=== PATIENT | male | born 1970 | race Two or more races ===

== ENCOUNTER 2022-02-27 10:46 | Emergency (ER) | payer OTHER, SELFPAY ==
--- NOTE | ~2022-02-27 | XR_ITS ---
EXAMINATION: XR CHEST CLINICAL INFORMATION: Left-sided chest pain. COMPARISON: None TECHNIQUE: Frontal view of the chest was obtained. FINDINGS: The lungs are clear. The cardiomediastinal silhouette is normal in size. There is no pleural effusion or pneumothorax. No acute osseous abnormality. XR/XR chest 1V IMPRESSION: No acute cardiopulmonary findings.
--- NOTE | ~2022-02-27 | CT_ITS ---
EXAMINATION: CT ABDOMEN AND PELVIS WITHOUT CONTRAST CLINICAL INFORMATION: Left-sided abdominal pain. COMPARISON: None TECHNIQUE: Multidetector volumetric imaging was performed from the superior aspect of the liver through the pubic symphysis. Sagittal and coronal reformatted images were obtained on the technologist's workstation. This CT examination was performed using dose optimization techniques as appropriate, variously including the following: *Automated exposure control *Adjustment of mA and/or kV according to patient size (this includes techniques or standardized protocols for targeted exams where dose is matched to indication/reason for exam; i.e. extremities or head) *Use of iterative reconstruction technique DLP: 804 mGy-cm FINDINGS: LUNG BASES: The visualized lung bases are unremarkable. LIVER, GALLBLADDER, AND BILIARY TREE: The liver is normal in size, shape, and attenuation. No focal hepatic lesion or biliary ductal dilatation is present. Gallbladder not seen. PANCREAS: Unremarkable. SPLEEN: Unremarkable. ADRENAL GLANDS: Unremarkable. KIDNEYS AND URETERS: The kidneys are normal in size, shape, and attenuation. No hydronephrosis, hydroureter, or calculi seen. Simple-appearing right upper pole renal cyst. There is a somewhat lobulated hypodensity within the lower pole of the left kidney measuring up to 4.3 x 4.2 x 4.4 cm. This measures approximately -7.7 Hounsfield units. Evaluation is limited without IV contrast and may represent renal angiomyolipoma. No perinephric stranding. BLADDER: Unremarkable. GASTROINTESTINAL TRACT: No bowel wall thickening or inflammatory change. No small or large bowel obstruction. Unremarkable appendix. PERITONEAL CAVITY: No intra-abdominal free air or free fluid. ABDOMINAL WALL: No significant hernia is appreciated. LYMPH NODES: No significant lymphadenopathy. VASCULAR: Unremarkable. PELVIC VISCERA: Prostate calcifications. OSSEOUS STRUCTURES: No acute osseous abnormality. CT/CT abdomen pelvis wo con IMPRESSION: 1. No renal or ureteral stone. 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 Evaluation limited without IV contrast. 2. Otherwise unremarkable examination. Fleischner guidelines were followed.
[2022-02-27 12:28] VITALS: BP 147/96; PULSE 71; RESP 18; TEMP 37.1; O2SAT 96; BMI 39.6
[2022-02-27 12:51] LABS: MANUAL DIFF FLAG NO
[2022-02-27 12:52] LABS: Basophils Absolute Auto 0.1 X10*3/uL (0.0-0.2); Basophils Percent Auto 0.7 % (0-2); Eosinophils Absolute Auto 0.3 X10*3/uL (0.0-0.4); Eosinophils Percent Auto 3.7 % (0-4); Hematocrit 43.2 % (42.0-52.0); Hemoglobin 13.8 g/dl (14.0-18.0); Imm Gran Abs Auto 0.08 X10*3/uL (0.00-0.03); Lymphocytes Absolute Auto 2.3 X10*3/uL (1.2-4.9); Lymphocytes Percent Auto 28.1 % (20-40); Mean Corpuscular HGB Conc 31.9 g/dl (31.0-36.0); Mean Corpuscular Volume 81.4 fL (80.0-98.0); Mean Platelet Volume 9.6 fL (9.4-12.4); Monocytes Absolute Auto 0.7 X10*3/uL (0.1-1.2); Monocytes Percent Auto 9.2 % (2-11); Neutrophils Absolute Auto 4.6 x10*3/uL (2.0-8.3); Neutrophils Percent Auto 57.3 % (45-73); Platelet Count 315 X10*3/uL (160-400); Red Blood Count 5.31 X10*6/uL (4.60-5.80); Red Cell Distribution Width 14.6 % (11.0-16.0)
[2022-02-27 12:57] LABS: Appearance Urine CLEAR; Color Urine YELLOW; Glucose Urine UA NEG (NEG); Nitrite Urine NEG (NEG); PH 5.5 (5.0-8.0); Specific Gravity - Urine >= 1.030 (1.005-1.025); Urine Blood NEG (NEG); Urine Ketones NEG (NEG); Urine Protein NEG (NEG-TRACE)
[2022-02-27 12:58] LABS: Leukocyte Esterase Urine NEG (NEG)
[2022-02-27 13:19] LABS: Alanine Aminotransferase 81 U/L (0-40); Albumin Level 4.3 g/dL (3.5-5.0); Alkaline Phosphatase 95 U/L (39-117); Anion Gap 11 (12-20); Aspartate Amino Transferase 41 U/L (5-37); Bilirubin Total 0.2 mg/dL (0.0-1.0); Blood Urea Nitrogen 16 mg/dL (9-16); Calcium 9.9 mg/dL (8.4-10.2); Carbon Dioxide 25 mmol/L (22-29); Chloride 106 mmol/L (96-108); Creatinine Clr Calc Pharmacy 113.8; Estimated Glomerular Filt Rate > 60; Glucose Random 105 mg/dL (60-115); Potassium 4.3 mmol/L (3.3-5.1); Sodium 138 mmol/L (135-145); Total Protein 7.5 g/dL (6.5-8.0)
--- NOTE | 2022-02-27 20:11 | ED.GENADULT ---
HPI - General Adult General Chief complaint: Abdominal Pain Stated complaint: Abd pain Time Seen by Provider: 02/27/22 20:10 Source: patient Mode of arrival: ambulatory Limitations: other (Patient poor historian) History of Present Illness HPI narrative: 51-year-old male with no known medical history presents to the emergency department with severe 10/10 stinging/stabbing pain to the left side of the abdomen radiating to his back/flank and shortness of breath X2 days. Patient tells me that it is hard to describe the pain but at times he feels like it is a burning sensation. He has no overlying skin changes. He tells me he has been feeling short of breath x2 days. Denies chest pain. Patient is a current daily smoker he smokes 1 pack every 2 weeks he tells me. Denies fevers, chills, difficulties with urination, or bowel habits, nausea, vomiting, diarrhea, hematochezia Denies history of kidney stones Onset (ago): day(s) (2) Location: left (flank ) Radiation: non-radiation Severity: moderate Quality: stabbing and constant Pain Consistency: constant Relieving factors: none Exacerbating factors: none Associated symptoms: shortness of breath Treatments prior to arrival: none Related Data Allergies Allergy/AdvReac Type Severity Reaction Status Date / Time No Known Allergies Allergy Verified 02/27/22 12:27 Review of Systems Review of Systems: Constitutional : No Weight loss, No Fever, No Chills, No Fatigue, No Malaise ENT/Mouth : No sore throat, No Rhinorrhea Eyes: No Eye Pain, No Swelling, No Redness Cardiovascular : No Chest Pain, + SOB, No Dyspnea on Exertion, No Orthopnea, No Edema, No Palpitations Respiratory : No Cough, No Sputum, No Wheezing Gastrointestinal : No Nausea, No Vomiting, No Diarrhea, No Constipation, No abdominal Pain, No Hematochezia, No Melena Genitourinary : No Dysuria, No Urinary Frequency, No Hematuria, Musculoskeletal : No joint pain, No Myalgias, No Joint Swelling, + flank pain Skin : No Skin Lesions, No rash Neuro : No Weakness, No Numbness, No Dizziness, No Headache Psych : No Anxiety/Panic, No Depression All other systems reviewed and are negative Yes all other systems are reviewed and are negative PMFSH Past Medical History Attestation statement: The following information was validated with the patient. Source: old records reviewed and nursing notes reviewed Social History Social History Advance Directives: No Advance Directives Information Provided: No Physical Exam ED Vital Signs: Vital Signs - 24 hr 02/27/22 12:28 02/27/22 20:56 02/27/22 23:38 Temperature 98.7 F 98.4 F 98.1 F Pulse Rate 71 70 59 Respiratory Rate 18 16 18 Blood Pressure 147/96 H 136/93 H 141/90 H Pulse Oximetry 96 98 96 BMI result Body Mass Index 39.6 Vital signs stable Appearance: Alert.? Oriented X3.? No acute distress.? Head: Normocephalic, atraumatic, no step-offs or deformities Eyes: Pupils equal, round and reactive to light.? ENT: Pharynx normal.? Neck: Normal inspection.? Neck supple.? CVS: Normal heart rate and rhythm.? Pulses normal.? Respiratory: No respiratory distress.? Breath sounds normal.? Abdomen: Soft and nontender.? Skin: Skin warm and dry.? Normal skin color.? Normal skin turgor.? Extremities: No lower extremity edema.? No calf ttp. 5/5 strength to bilateral upper and lower extremities Back: No midline tenderness, no C-spine tenderness, full range of motion, no CVA tenderness bilaterally Neuro: Oriented X 3.? No motor deficit.? No sensory deficit. CN 2-12 intact Course Reevaluation(s) Reevaluation #1: CBC within normal limits. Chemistry with no acute electrolyte abnormalities requiring intervention. Transaminases slightly elevated, however, no pain to palpation to right upper quadrant. Patient's lipase within normal limits unlikely pancreatitis. Urine clean for infection. Pending at this time is D-dimer chest x-ray and CT of the abdomen and pelvis. Time: 20:39 Reevaluation #2: D-dimer negative, unlikely that this is a PE. Chest x-ray with no acute findings unlikely that this is pneumonia. CT of the abdomen and pelvis with no renal or ureteral stones. There is a possible left lower pole angiomyeolipoma I have attached CT scan results to patient's discharge in advised him to follow-up with his PCP. Patient was treated with Toradol with success. Time: 22:29 Reevaluation #3: Patient tells me he is feeling so much better pain down to zero, passed PO challage eating and driinking no pain, nausea or vomiting., ambulating, appears to be in no acute distress telling me he feels much better and would like to go home. I educated patient that if he notes a rash he should see his primary care provider return for further evaluation as this could be shingles. Outlined worrisome signs and symptoms on discharge in advised him to return with any new or worsening symptoms. Comfortable discharge home. Time: 00:03 Medical Decision Making [facility] Narrative Medical decision making narrative: 2011 51-year-old male presents with left-sided abdominal pain/burning radiating to the left flank area. Denies history of kidney stones. Denies urinary symptoms. Physical exam benign. No overlying skin changes. History and physical examination is concerning for possible herpes zoster, will rule out intra-abdominal at etiologies, UTI. Unlikely PE however will obtain D-dimer. Will also rule out pneumonia with chest x-ray. Will rule out diverticulitis. Patient has no complaints of chest pain, very low suspicion for ACS. History and physical examination not consistent with dissection. To clarify patient points around T7-T8 dermatome when I ask him where his abdomen hurts. No overlying skin changes. Explained to patient if rash develops than likely this is herpes zoster Plan at this time is labs, imaging, chest x-ray, D-dimer Medical Records Medical records reviewed: Yes I reviewed the patient's medical records. Lab Data Lab results reviewed: Yes I reviewed the patient's lab results. Result diagrams: 02/27/22 12:45 02/27/22 12:45 Labs: Lab Results 02/27/22 02/27/22 02/27/22 Range/Units 12:45 12:45 12:45 WBC 8.0 (4.8-10.8) X10*3/uL RBC 5.31 (4.60-5.80) X10*6/uL Hgb 13.8 L (14.0-18.0) g/dl Hct 43.2 (42.0-52.0) % MCV 81.4 (80.0-98.0) fL MCH 26.0 L (27.0-33.0) pg MCHC 31.9 (31.0-36.0) g/dl RDW 14.6 (11.0-16.0) % Plt Count 315 (160-400) X10*3/uL MPV 9.6 (9.4-12.4) fL Immature Gran % (Auto) 1.0 H (0.0-0.4) % Neut % (Auto) 57.3 (45-73) % Lymph % (Auto) 28.1 (20-40) % Reeves % (Auto) 9.2 (2-11) % Eos % (Auto) 3.7 (0-4) % Baso % (Auto) 0.7 (0-2) % Lymph # (Auto) 2.3 (1.2-4.9) X10*3/uL Reeves # (Auto) 0.7 (0.1-1.2) X10*3/uL Eos # (Auto) 0.3 (0.0-0.4) X10*3/uL Baso # (Auto) 0.1 (0.0-0.2) X10*3/uL Abs Immat Gran (auto) 0.08 H (0.00-0.03) X10*3/uL Absolute Neuts (auto) 4.6 (2.0-8.3) x10*3/uL Absolute Nucleated RBC 0.000 (0.0-0.012) X10*3/uL Nucleated RBC % (auto) 0.0 (0.0-0.2) /100WBC D-Dimer High Sensitivty NG/ML Sodium 138 (135-145) mmol/L Potassium 4.3 (3.3-5.1) mmol/L Chloride 106 (96-108) mmol/L Carbon Dioxide 25 (22-29) mmol/L Anion Gap 11 L (12-20) BUN 16 (9-16) mg/dL Creatinine 0.82 (0.5-1.4) mg/dL Estim Creat Clear Calc 113.8 Estimated GFR > 60 Random Glucose 105 (60-115) mg/dL Calcium 9.9 (8.4-10.2) mg/dL Total Bilirubin 0.2 (0.0-1.0) mg/dL AST 41 H (5-37) U/L ALT 81 H (0-40) U/L Alkaline Phosphatase 95 (39-117) U/L Total Protein 7.5 (6.5-8.0) g/dL Albumin 4.3 (3.5-5.0) g/dL Lipase 28 (8-78) U/L Urine Color YELLOW Urine Appearance CLEAR Urine pH 5.5 (5.0-8.0) Ur Specific [place] >= 1.030 H (1.005-1.025) Urine Protein NEG (NEG-TRACE) MG/DL Urine Glucose (UA) NEG (NEG) MG/DL Urine Ketones NEG (NEG) MG/DL Urine Blood NEG (NEG) Urine Nitrite NEG (NEG) Ur Leukocyte Esterase NEG (NEG) 02/27/22 Range/Units 21:00 WBC (4.8-10.8) X10*3/uL RBC (4.60-5.80) X10*6/uL Hgb (14.0-18.0) g/dl Hct (42.0-52.0) % MCV (80.0-98.0) fL MCH (27.0-33.0) pg MCHC (31.0-36.0) g/dl RDW (11.0-16.0) % Plt Count (160-400) X10*3/uL MPV (9.4-12.4) fL Immature Gran % (Auto) (0.0-0.4) % Neut % (Auto) (45-73) % Lymph % (Auto) (20-40) % Reeves % (Auto) (2-11) % Eos % (Auto) (0-4) % Baso % (Auto) (0-2) % Lymph # (Auto) (1.2-4.9) X10*3/uL Reeves # (Auto) (0.1-1.2) X10*3/uL Eos # (Auto) (0.0-0.4) X10*3/uL Baso # (Auto) (0.0-0.2) X10*3/uL Abs Immat Gran (auto) (0.00-0.03) X10*3/uL Absolute Neuts (auto) (2.0-8.3) x10*3/uL Absolute Nucleated RBC (0.0-0.012) X10*3/uL Nucleated RBC % (auto) (0.0-0.2) /100WBC D-Dimer High Sensitivty 196 NG/ML Sodium (135-145) mmol/L Potassium (3.3-5.1) mmol/L Chloride (96-108) mmol/L Carbon Dioxide (22-29) mmol/L Anion Gap (12-20) BUN (9-16) mg/dL Creatinine (0.5-1.4) mg/dL Estim Creat Clear Calc Estimated GFR Random Glucose (60-115) mg/dL Calcium (8.4-10.2) mg/dL Total Bilirubin (0.0-1.0) mg/dL AST (5-37) U/L ALT (0-40) U/L Alkaline Phosphatase (39-117) U/L Total Protein (6.5-8.0) g/dL Albumin (3.5-5.0) g/dL Lipase (8-78) U/L Urine Color Urine Appearance Urine pH (5.0-8.0) Ur Specific [place] (1.005-1.025) Urine Protein (NEG-TRACE) MG/DL Urine Glucose (UA) (NEG) MG/DL Urine Ketones (NEG) MG/DL Urine Blood (NEG) Urine Nitrite (NEG) Ur Leukocyte Esterase (NEG) Critical Care Time Critical Care Time Critical Care Time: No Discharge Plan Discharge Clinical Impression: Abdominal pain Patient Disposition: Still a Patient Instructions: Abdominal Pain (ED) Additional Instructions: Take your medications as prescribed. If you were prescribed antibiotics today, it is important that you take your medication to their entirety, do not skip any doses, do not finish them early. Follow-up with your primary care provider this week. Follow-up with gastroenterology if symptoms persist for over a week or 2. Return to the emergency department with new or worsening symptoms. Such as fevers, chills, chest pain, shortness of breath, nausea, vomiting, dizziness, headache, vision changes, lethargy In case of emergency call 911 Look out for rash, of this rash arises it is likely that this is shingles and if this is the case you need to reach out to your medical doctor or come back to the emergency department for evaluation as this may require further intervention/treatment. [place] [facility] medicamentos seg?n lo prescrito. Si le recetaron antibi?ticos hoy, es importante que tome montanez medicamento en montanez totalidad, no se salte ninguna dosis, no los termine antes de tiempo. Seguimiento con montanez proveedor de atenci?n primaria esta semana. Seguimiento con gastroenterolog?a si los s?ntomas persisten treva m?s de michael semana o 2. Regrese al departamento de emergencias con s?ntomas nuevos o que empeoran. Jenni fiebre, escalofr?os, dolor de pecho, dificultad para respirar, n?useas, v?mitos, mareos, dolor de keith, cambios en la visi?n, letargo En jackie de emergencia llama al 911 Est? atento a la erupci?n, si surge esta erupci?n, es probable que se trate de culebrilla y, si fish es el jackie, debe comunicarse con montanez m?dico o regresar al departamento de emergencias para michael evaluaci?n, ya que esto puede requerir michael intervenci?n / tratamiento adicional. CT/CT abdomen pelvis wo con IMPRESSION: 1. No renal or ureteral stone. 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 Evaluation limited without IV contrast. 2. Otherwise unremarkable examination.? ? Fleischner guidelines were followed. Referrals: Francisco Dumont MD [Physician] - 1 week Physician,Tiffanie Rubio [Primary Care Provider] - 2 days Stand Alone Forms: Work/School Release
[2022-02-27 20:32] LABS: Lipase 28 U/L (8-78)
[2022-02-27 20:56] VITALS: BP 136/93; PULSE 70; RESP 16; TEMP 36.9; O2SAT 98
[2022-02-27 21:15] LABS: D Dimer High Sensitivity 196 NG/ML
[2022-02-27] MEDS: Ketorolac Tromethamine 15 MG/ML VIAL 30 MG IM (23:02)
[2022-02-27 23:38] VITALS: BP 141/90; PULSE 59; RESP 18; TEMP 36.7; O2SAT 96
== END 2022-02-28 00:26 | disposition home or self-care (01) ==
PROVIDERS: Physician Assistant; Emergency Provider Internal Medicine
DX: R10.32 Left lower quadrant pain (principal); M54.50 Low back pain, unspecified; R06.02 Shortness of breath; F17.210 Nicotine dependence, cigarettes, uncomplicated; Z71.6 Tobacco abuse counseling; Z79.899 Other long term (current) drug therapy
CPT/HCPCS: 36415; 71045; 74176; 80053; 81003; 83690; 85025; 85379; 96372; 99284; J1885

== ENCOUNTER 2022-07-10 10:39 | Outpatient (REF) | payer OTHER, SELFPAY ==
--- NOTE | ~2022-07-10 | XR_ITS ---
EXAMINATION: XR RIBS, LEFT CLINICAL INFORMATION: Left anterior chest and left upper quadrant pain after coughing COMPARISON: 02/27/2022. TECHNIQUE: 3 views of the left ribs were obtained. Single view of the chest performed as well. FINDINGS: Lungs are clear. No consolidation, pneumothorax, or pleural effusion. The cardiomediastinal silhouette and pulmonary vasculature are normal. Osseous structures are unremarkable. Ribs are intact. No fractures are identified. XR/XR ribs LT min 3V w CXR1V IMPRESSION: Unremarkable examination.
--- NOTE | ~2022-07-10 | XR_ITS ---
EXAMINATION: XR ABDOMEN COMPLETE CLINICAL INDICATION: Left upper quadrant pain after coughing COMPARISON: None TECHNIQUE: 2 views of the abdomen. FINDINGS: The bowel gas pattern is nonobstructive. No evidence for free air. No suspicious abnormal calcifications observed. Visualized ribs unremarkable. XR/XR acute abdomen series IMPRESSION: Nonobstructive bowel gas pattern without any evidence for free air.
[2022-07-10 11:08] LABS: Ammonia 30 umol/L (13-55)
[2022-07-10 11:34] LABS: Hematocrit 43.9 % (42.0-52.0); Hemoglobin 14.2 g/dl (14.0-18.0); Mean Corpuscular HGB Conc 32.3 g/dl (31.0-36.0); Mean Corpuscular Hemoglobin 25.1 pg (27.0-33.0); Mean Corpuscular Volume 77.7 fL (80.0-98.0); Mean Platelet Volume 9.8 fL (9.4-12.4); Platelet Count 368 X10*3/uL (160-400); Red Blood Count 5.65 X10*6/uL (4.60-5.80); Red Cell Distribution Width 14.2 % (11.0-16.0); White Blood Count 10.1 X10*3/uL (4.8-10.8)
[2022-07-10 12:21] LABS: Alanine Aminotransferase 33 U/L (0-40); Albumin Level 4.6 g/dL (3.5-5.0); Alkaline Phosphatase 77 U/L (39-117); Anion Gap 17 (12-20); Aspartate Amino Transferase 27 U/L (5-37); Bilirubin Direct < 0.2 mg/dL (0.0-0.5); Bilirubin Total 0.3 mg/dL (0.0-1.0); Blood Urea Nitrogen 17 mg/dL (9-16); Calcium 9.8 mg/dL (8.4-10.2); Carbon Dioxide 24 mmol/L (22-29); Chloride 104 mmol/L (96-108); Estimated Glomerular Filt Rate > 60; Glucose Random 102 mg/dL (60-115); Lipase < 4 U/L (8-78); Potassium 4.2 mmol/L (3.3-5.1); Sodium 141 mmol/L (135-145); Total Protein 7.7 g/dL (6.5-8.0)
[2022-07-10 12:25] LABS: Amylase 50 U/L (28-100)
== END 2022-07-10 10:40 | disposition home or self-care (01) ==
LOC: HO.LAB 10:39
PROVIDERS: PCP Hospitalist; Visit Provider Hospitalist
DX: Z00.00 Encounter for general adult medical examination without abnormal findings (principal); R10.9 Unspecified abdominal pain; R68.89 Other general symptoms and signs; J45.901 Unspecified asthma with (acute) exacerbation; R10.12 Left upper quadrant pain
CPT/HCPCS: 36415; 71101; 74022; 80053; 82140; 82150; 82248; 83690; 85027

== ENCOUNTER → 2022-07-17 08:36 | Outpatient (BNVA) | payer OTHER, SELFPAY | PROVIDERS: PCP Hospitalist; Referring Provider Hospitalist; Visit Provider Physician Assistant | DX: K21.9 Gastro-esophageal reflux disease without esophagitis (principal); R10.12 Left upper quadrant pain; Z78.9 Other specified health status | CPT/HCPCS: 99202 ==

== ENCOUNTER → 2022-08-14 08:38 | Outpatient (BNVA) | payer OTHER, SELFPAY | PROVIDERS: PCP Hospitalist; Visit Provider Internal Medicine Pulmonary Disease | DX: J44.9 Chronic obstructive pulmonary disease, unspecified (principal); R06.09 Other forms of dyspnea | CPT/HCPCS: 99202 ==

== ENCOUNTER → 2022-09-11 08:45 | Outpatient (BNVA) | payer OTHER, SELFPAY | PROVIDERS: PCP Hospitalist; Referring Provider Hospitalist; Visit Provider Physician Assistant | DX: K21.9 Gastro-esophageal reflux disease without esophagitis (principal); K59.09 Other constipation; J45.20 Mild intermittent asthma, uncomplicated; R06.09 Other forms of dyspnea | CPT/HCPCS: 99212 ==

== ENCOUNTER 2022-09-17 09:10 | Outpatient (REF) | payer OTHER, SELFPAY ==
--- NOTE | 2022-09-17 11:47 | PFT_ITS ---
INDICATION: COPD. SPIROMETRY: FEV1 to FVC 84% with an FEV1 of 2.29 L, which is 76% predicted and an FVC of 2.73 L, which is 70% predicted. No significant response to bronchodilators noted. Maximum voluntary ventilation 56% predicted. LUNG VOLUMES: Total lung capacity 79% predicted. The expiratory reserve volume 10% predicted. DIFFUSION CAPACITY: DLCO 97% predicted. COMPARISONS: None. INTERPRETATION: No obstructive ventilatory defects. No significant response to bronchodilators noted. There is a moderate decrease in the maximum voluntary ventilation secondary to likely deconditioning. Lung volumes do demonstrate a restrictive ventilatory defect consistent with mild restrictive lung disease, impart due to likely an elevated BMI. His expiratory reserve volume is also significantly decreased down to 10% predicted. Diffusion capacity is within normal limits. Clinical correlation warranted. MD JACE [place]/MODL / [id number]
== END 2022-09-17 09:11 | disposition home or self-care (01) ==
LOC: HO.RESP 09:10
PROVIDERS: PCP Hospitalist; Visit Provider Internal Medicine Pulmonary Disease
DX: J44.9 Chronic obstructive pulmonary disease, unspecified (principal); R06.09 Other forms of dyspnea
CPT/HCPCS: 94060; 94727; 94729

== ENCOUNTER → 2022-09-19 08:39 | Outpatient (BNVA) | payer OTHER, SELFPAY | PROVIDERS: PCP Hospitalist; Visit Provider Internal Medicine Pulmonary Disease | DX: J44.9 Chronic obstructive pulmonary disease, unspecified (principal) | CPT/HCPCS: 99212 ==

== ENCOUNTER 2022-10-10 09:04 | Emergency (ER) | payer OTHER, SELFPAY ==
--- NOTE | ~2022-10-10 | XR_ITS ---
EXAMINATION: XR CHEST CLINICAL INFORMATION: Cough. COMPARISON: None TECHNIQUE: Frontal view of the chest was obtained. FINDINGS: No significant abnormality is noted involving the heart, lungs, mediastinum, bony thorax or soft tissues. XR/XR chest 1V IMPRESSION: Unremarkable chest examination.
[2022-10-10 09:13] VITALS: BP 135/87; PULSE 95; RESP 20; TEMP 36.4; O2SAT 95; BMI 45.7
--- NOTE | 2022-10-10 09:27 | ED_ITS ---
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 No fevers, chills, leg swelling, leg pain, vomiting, diarrhea, abdominal pain. Patient reports chest discomfort with coughing only. Patient has been using albuterol MDI with continued symptoms. No recent travel. Patient reports he was around a [id number] who had cough and cold symptoms. Related Data Previous Rx's Medication Instructions Recorded pantoprazole 40 mg tablet,delayed 40 mg PO DAILY 30 days #30 tabs 07/17/22 release albuterol sulfate 90 mcg/actuation 2 puff inhalation Q4-6H PRN 08/01/22 aerosol inhaler (ProAir HFA) shortness of breath or wheezing #8.5 grams albuterol sulfate 1.25 mg/3 mL 1.25 mg (3 mL) inhalation Q4H 1 09/06/22 solution for nebulization month #540 mL docusate sodium 100 mg capsule 200 mg PO BEDTIME #60 caps 09/11/22 (Colace) methylcellulose (laxative) 500 mg 500 mg PO BID #60 tabs 09/11/22 tablet (Citrucel) pantoprazole 20 mg tablet,delayed 40 mg PO ONCE 30 days #60 tabs 09/11/22 release polyethylene glycol 3350 17 17 g PO DAILY #510 grams 09/11/22 gram/dose oral powder (Miralax) tiotropium 2.5 mcg-olodaterol 2.5 2 puff inhalation DAILY 30 days #4 09/19/22 mcg/actuation mist for inhalation grams (Stiolto Respimat) benzonatate 200 mg capsule 200 mg PO TID PRN cough #30 caps 10/10/22 prednisone 20 mg tablet 40 mg PO DAILY #8 tabs 10/10/22 Allergies Allergy/AdvReac Type Severity Reaction Status Date / Time No Known Allergies Allergy Verified 09/19/22 08:53 Review of Systems Review of Systems: Yes all other systems are reviewed and are negative Constitutional: Constitutional: Reports no additional constitutional complaints, Denies body ache(s), Denies chills, Denies fever(s), Denies headache(s) and Denies weakness Eyes: Eyes: Reports no additional eye complaints and Denies change in vision ENT: Reports system reviewed and no additional complaints, except as documented, Denies dizziness, Denies headache(s), Denies nasal congestion, Reports nasal discharge and Denies neck pain Cardiovascular: Cardiovascular: Reports no additional cardiovascular complaints, Reports chest pain, Denies leg edema and Reports dyspnea Respiratory: Respiratory: Reports no additional respiratory complaints, Denies cough, Reports dyspnea and Reports wheezing Gastrointestinal: Gastrointestinal: Reports no additional gastrointestinal complaints, Denies abdominal pain, Denies diarrhea, Denies nausea and Denies vomiting Genitourinary: Genitourinary: Denies urinary incontinence Musculoskeletal: Musculoskeletal: Reports no additional musculoskeletal complaints, Denies back pain, Denies arthralgias, Denies joint swelling, Denies neck pain, Denies numbness and Denies tingling Integumentary/Breasts: Skin/Breast: Reports system reviewed and no additional complaints, except as docu and Denies rash Neurologic: Reports system reviewed and no additional complaints, except as documented, Denies dizziness, Denies headache(s), Denies numbness, Denies tingling and Denies weakness Allergic/Immunologic: Allergic/Immunologic: Reports wheezing PMFSH Past Medical History Attestation statement: The following information was validated with the patient. Source: old records reviewed and nursing notes reviewed Medical History Asthma Surgical History History of surgery on arm Hx of cholecystectomy Social History Social History Household Members: Family Housing: House Alcohol intake: former Patient Tobacco Use Status: Former Tobacco user e-Cigarette/Vaping Use: Never Used Second Hand Smoke Exposure: No Advance Directives: No Advance Directives Information Provided: Yes service: No Current occupational status: employed Current occupation: works nights Current occupational exposures/hazards: No Physical Exam ED Vital Signs: Vital Signs - 24 hr 10/10/22 09:13 10/10/22 10:38 Temperature 97.6 F Pulse Rate 95 90 Respiratory Rate 20 18 Blood Pressure 135/87 Pulse Oximetry 95 Oxygen Delivery Method Room Air BMI result Body Mass Index 45.7 Const General: cooperative, healthy appearing, comfortable and no acute distress Orientation/consciousness: patient oriented x3 Limitations: language barrier HENMT Head: Yes normal to inspection Ears: hearing grossly normal bilaterally and TM's normal bilaterally General nose exam: Normal external nose present Face and sinus: Yes normal facial exam Mouth: Normal oral and palatal mucosa present Throat: Yes posterior oropharynx normal, Yes tonsils normal and Yes uvula midline Eyes General: appearance normal, both eyes and all related structures Pupils: Equal, round and reactive pupils present Neck Neck: Yes normal visual inspection, Yes full ROM, Yes no lymphadenopathy and Yes no meningeal signs Chest Chest palpation & inspection: normal inspection of the chest Resp Effort & Inspection: normal respiratory effort Auscultation: wheezes Cardio Rate: regular rate Rhythm: regular rhythm Peripheral pulses: Peripheral pulses 2+ throughout GI Inspection: Yes normal to inspection Palpation (GI): Soft to palpation and nontender General: Yes no CVA tenderness Back/Spine/Pelvis Back: no CVA tenderness Thoracic/Lumbar Spine: thoracic and lumbar spine normal to inspection Skin General skin exam: no rashes or lesions noted Neuro General: patient oriented x3, moves all extremities and no meningeal signs Cranial nerves: Yes Equal, round and reactive pupils present Cognition (Neuro): normal cognition Gait exam (Neuro): Normal gait present Extrem General: Yes normal to inspection, Yes no pedal edema and Yes no calf tenderness Course Course Course Narrative: RSV is positive. COVID and flu are negative. Chest x-ray shows no acute finding. No hypoxia or tachypnea. Lungs are improved after receiving DuoNeb. Patient discharged home with course of prednisone. Reviewed worrisome signs and symptoms of when to return to the emergency room. Comfortable plan for discharge home. Medications Administered Discontinued Medications Generic Name Dose Route Start Last Admin Trade Name Freq PRN Reason Stop Dose Admin Albuterol Sulfate 2.5 mg/ 0 mg 10/10/22 09:40 10/10/22 10:36 Ipratropium [place] 0.5 mg INHALE 10/10/22 09:41 2.5 each ONCE ONE Administration Prednisone 60 mg 10/10/22 09:40 10/10/22 10:01 Prednisone 20 Mg Tablet PO 10/10/22 09:41 60 mg ONCE ONE Administration Medical Decision Making Medical Decision Making [facility] Narrative: 52 yo male with history of COPD here with URI symptoms x 2-3 days with chest discomfort with coughing. Wheezing on exam. Will give Duoneb, testing for flu/covid/rsv, obtain CXR, give po pred Differential Diagnosis Differential Diagnoses: The differential diagnosis associated with the presentation includes Influenza, pneumonia, COPD exacerbation Lab Data [facility] Lab Attestation statement: I reviewed the patient's lab results. Labs: Lab Results 10/10/22 Range/Units 09:48 Influenza Type A (PCR) NEGATIVE (Negative) Influenza Type B (PCR) NEGATIVE (Negative) RSV RNA Qual (PCR) POSITIVE A (Negative) SARS-CoV-2 RNA (RT-PCR) NEGATIVE (Negative) Independent Interpretation I performed an independent interpretation of an: Plain X-Ray (Independently reviewed the chest x-ray which shows no acute finding) Radiology Impression Discussion of test interpretation with radiology: I have reviewed the radiologist's reading. Radiologist Impression: [address] [address] XRay Report Signed Patient: Socrates Mejia MR#: [id number] : 1970 Acct:[id number] Age/Sex: 52 / M ADM Date: 10/10/22 Loc: HO.ED Attending Dr: Ordering Physician: Tom Echeverria MD Date of Service: 10/10/22 Procedure(s): XR chest 1V Accession Number(s): [id number] cc: Tom Echeverria MD~ EXAMINATION: XR CHEST CLINICAL INFORMATION: Cough. COMPARISON: None TECHNIQUE: Frontal view of the chest was obtained. FINDINGS: No significant abnormality is noted involving the heart, lungs, mediastinum, bony thorax or soft tissues. XR/XR chest 1V IMPRESSION: Unremarkable chest examination. ? Prescription Management I considered prescription management with: Antibiotic Considered antibiotic but I do not believe it is necessary with less than 2 days of symptoms with no fever, normal x-ray and a positive viral test for RSV This is likely viral syndrome Discharge Plan Discharge Clinical Impression: Respiratory syncytial virus (RSV) Patient Disposition: Home, Self-Care Instructions: Respiratory Syncytial Virus (ED) Additional Instructions: Las pruebas de COVID y gripe son negativas. La radiograf?a no muestra signos de neumon?a. Comience montanez prednisona ma?angel. Use montanez inhalador seg?n sea necesario. Regresar por empeoramiento de los s?ntomas Prescriptions: New prednisone 20 mg tablet 40 mg PO DAILY Qty: 8 0RF benzonatate 200 mg capsule 200 mg PO TID PRN (Reason: cough) Qty: 30 0RF No Action albuterol sulfate 1.25 mg/3 mL solution for nebulization 1.25 mg inhalation Q4H 30 Days Qty: 540 5RF albuterol sulfate [ProAir HFA] 90 mcg/actuation HFA aerosol inhaler 2 puff inhalation Q4-6H PRN (Reason: shortness of breath or wheezing) Qty: 8.5 5RF pantoprazole 40 mg tablet,delayed release (DR/EC) 40 mg PO DAILY 30 Days Qty: 30 11RF docusate sodium [Colace] 100 mg capsule 200 mg PO BEDTIME Qty: 60 5RF polyethylene glycol 3350 [Miralax] 17 gram/dose powder 17 g PO DAILY Qty: 510 6RF Citrucel 500 mg tablet 500 mg PO BID Qty: 60 5RF pantoprazole 20 mg tablet,delayed release (DR/EC) 40 mg PO ONCE 30 Days Qty: 60 6RF Stiolto Respimat 2.5-2.5 mcg/actuation mist 2 puff inhalation DAILY 30 Days Qty: 4 6RF Referrals: María Hubbard NP [Primary Care Provider] - 5 days Interventions: ED Discharge Assessment Last Done: 10/10/22 11:22 Discharge Date/Time: 10/10/22 11:23 Print Language: Kinyarwanda
[2022-10-10] MEDS: predniSONE 20 MG TABLET 60 MG PO (10:01)
[2022-10-10 10:38] VITALS: PULSE 90; RESP 18; O2SAT 98
[2022-10-10 10:40] LABS: Influenza A PCR NEGATIVE (Negative); Influenza B PCR NEGATIVE (Negative); Resp Syncy Virus RNA Qual PCR POSITIVE (Negative); SARS COV2 PCR INHOUSE NEGATIVE (Negative)
== END 2022-10-10 11:23 | disposition home or self-care (01) ==
PROVIDERS: Emergency Provider Emergency Medicine Emergency Medical Services; PCP Hospitalist
DX: R06.2 Wheezing (principal); B97.4 Respiratory syncytial virus as the cause of diseases classified elsewhere; J44.9 Chronic obstructive pulmonary disease, unspecified; Z20.822 Contact with and (suspected) exposure to COVID-19
CPT/HCPCS: 0241U; 71045; 94640; 99283; 99284

== ENCOUNTER 2022-10-14 08:06 | Emergency (ER) | payer OTHER, SELFPAY ==
--- NOTE | 2022-10-14 | ECG_ITS ---
Test Reason : DYSPNEA Blood Pressure : / mmHG Vent. Rate : 109 BPM Atrial Rate : 109 BPM P-R Int : 174 ms QRS Dur : 070 ms QT Int : 338 ms P-R-T Axes : 035 027 029 degrees QTc Int : 455 ms Sinus tachycardia Otherwise normal ECG No previous ECGs available Referred By: Tom Echeverria Electronically Signed By:Emile Rivas
--- NOTE | ~2022-10-14 | CT_ITS ---
EXAMINATION: CTA CHEST. CT ABDOMEN PELVIS WITH IV CONTRAST. CLINICAL INFORMATION: Right upper abdominal pain. Constipation. COMPARISON: Chest x-ray 10/10/2022. CT chest, abdomen and pelvis without contrast 02/27/2022 TECHNIQUE: 5 mm thin axial and reformatted 3 mm thin sagittal and coronal images of chest were obtained following rapid IV 85 mL Omnipaque 350. Subsequently 5 mm thin axial and reformatted 3 mm thin sagittal and coronal images of abdomen pelvis were obtained without contrast. DLP 1375. This CT examination was performed using dose optimization technique as appropriate, variously including the following: Automated exposure control Adjustment of MA and/or KV according to patient size(this includes techniques or standardized protocols for targeted exams where dose is matched to indication/reason for exam; extremities or head. Use of iterative reconstruction techniques. FINDINGS: CHEST: Mediastinum: There is good opacification of thoracic aorta without any evidence of aneurysm or dissection. The heart size is normal. The pulmonary arteries is less than optimally opacified with no gross narrowing or filling defects in the main, right or left pulmonary arteries. No abnormal size mediastinal mass or lymph nodes seen. Thyroid lobes are not in the [id number]-ovqs. Central trachea and the bronchi appears widely patent. Pleura: There is a small right pleural effusion. No pleural thickening, calcification or pneumothorax seen. LUNGS: The lungs are expanded with minimal groundglass attenuation in the right upper lobe medially likely atelectasis or respiratory breathing artifact. Mild atelectatic changes seen in the superior segment right lower lobe and lingula. No mass or consolidation seen. Axilla:Small shotty lymph nodes seen in the axilla. The chest wall appears unremarkable. Osseous structures: No aggressive lytic or sclerotic process seen. There is an old healed fracture left lateral ninth rib. Lower dorsal spine. No aggressive lytic or sclerotic process seen. ABDOMEN AND PELVIS: Liver, ducts and gallbladder: The liver is normal size, contour and and mild hypoattenuation. No intrahepatic ductal dilatation or focal lesion. The gallbladder is not visualized. Spleen: Unremarkable. Pancreas: Unremarkable. Adrenal glands: Unremarkable. Kidneys and ureters: There are bilateral renal cysts. Both kidneys are otherwise normal size, shape without hydronephrosis. Lymphovascular structures: Abdominal aorta is normal caliber. No abnormal size retroperitoneal or peritoneal lymph nodes seen. GI tract: There is scattered stool in the right colon without distention. Rest the colon and the small bowel loops are normal. The stomach is nondistended. Appendix is normal caliber. Pelvis: The bladder is nondistended. The prostate gland is normal size with central gland calcification. No free fluid. No abnormal pelvic lymph nodes no evidence of abdominal wall hernia. Osseous structures: No aggressive lytic or sclerotic process seen. There is a large soft tissue mass/density seen eighth, ninth, sterile chondral junction, question hematoma. No bony erosive changes or fracture seen involving the ribs or the costochondral junction. CT/CT angio chest PE protocol IMPRESSION: Small right pleural effusion with with compressive right lower lobe atelectasis. There is minimal groundglass atelectatic changes in right upper lobe and lingula. Old left ninth rib fracture. Moderate soft tissue swelling right anterolateral eighth and ninth costochondral junction likely hematoma with injury. There is no underlying rib or costochondral fracture or lytic/sclerotic lesion. Correlate for any kind of trauma. Bilateral renal cysts. Mild attenuation of liver question fatty infiltration.
--- NOTE | ~2022-10-14 | CT_ITS ---
EXAMINATION: CT CERVICAL SPINE WITHOUT CONTRAST; UNENHANCED CT OF THE HEAD. CLINICAL INFORMATION: Head bleed. Hypertensive. Possible neck fracture. COMPARISON: None TECHNIQUE: Routine unenhanced CT of the head with multiple coronal and sagittal reformatted images; routine unenhanced CT of the cervical spine with multiple coronal and sagittal reformatted images. This CT examination was performed using dose optimization techniques as appropriate, variously including the following: *Automated exposure control *Adjustment of mA and/or kV according to patient size (this includes techniques or standardized protocols for targeted exams where dose is matched to indication/reason for exam; i.e. extremities or head) *Use of iterative reconstruction technique DLP: 1371 mGy-cm FINDINGS: CT head: No intracranial hemorrhage, tumors or acute infarcts noted. The ventricles and sulci are normal in size and configuration. No focal parenchymal lesions of the brain or abnormal extra-axial fluid collections noted. The orbits and globes are normal in appearance. Opacification of a moderate number scattered ethmoid air cells. No mastoid or middle ear cavity effusions. CT cervical spine: No fractures or acute appearing subluxations are noted. Moderate intervertebral disc space narrowing and endplate osteophytosis C5-C6. Mild multilevel facet hypertrophic changes. No prevertebral fluid collections or soft tissue inflammatory changes identified. CT/CT head/brain wo IV con IMPRESSION: CT head: *No acute intracranial abnormalities. CT cervical spine: *No acute abnormalities. *Chronic spondylosis as detailed above.
--- NOTE | ~2022-10-14 | CT_ITS ---
EXAMINATION: CT CERVICAL SPINE WITHOUT CONTRAST; UNENHANCED CT OF THE HEAD. CLINICAL INFORMATION: Head bleed. Hypertensive. Possible neck fracture. COMPARISON: None TECHNIQUE: Routine unenhanced CT of the head with multiple coronal and sagittal reformatted images; routine unenhanced CT of the cervical spine with multiple coronal and sagittal reformatted images. This CT examination was performed using dose optimization techniques as appropriate, variously including the following: *Automated exposure control *Adjustment of mA and/or kV according to patient size (this includes techniques or standardized protocols for targeted exams where dose is matched to indication/reason for exam; i.e. extremities or head) *Use of iterative reconstruction technique DLP: 1371 mGy-cm FINDINGS: CT head: No intracranial hemorrhage, tumors or acute infarcts noted. The ventricles and sulci are normal in size and configuration. No focal parenchymal lesions of the brain or abnormal extra-axial fluid collections noted. The orbits and globes are normal in appearance. Opacification of a moderate number scattered ethmoid air cells. No mastoid or middle ear cavity effusions. CT cervical spine: No fractures or acute appearing subluxations are noted. Moderate intervertebral disc space narrowing and endplate osteophytosis C5-C6. Mild multilevel facet hypertrophic changes. No prevertebral fluid collections or soft tissue inflammatory changes identified. CT/CT cervical spine wo IV con IMPRESSION: CT head: *No acute intracranial abnormalities. CT cervical spine: *No acute abnormalities. *Chronic spondylosis as detailed above.
[2022-10-14 08:10] VITALS: BP 192/132; PULSE 115; RESP 24; TEMP 36.6; O2SAT 94; BMI 38.5
[2022-10-14 08:16] VITALS: BP 192/126
[2022-10-14 08:59] VITALS: BP 206/141; PULSE 108; RESP 25; O2SAT 96
[2022-10-14 09:53] LABS: MANUAL DIFF FLAG NO
[2022-10-14 09:57] LABS: Basophils Absolute Auto 0.1 X10*3/uL (0.0-0.2); Basophils Percent Auto 0.5 % (0-2); Eosinophils Absolute Auto 0.2 X10*3/uL (0.0-0.4); Eosinophils Percent Auto 1.7 % (0-4); Hematocrit 39.9 % (42.0-52.0); Imm Gran Abs Auto 0.19 X10*3/uL (0.00-0.03); Imm Gran Pct Auto 1.6 % (0.0-0.4); Lymphocytes Absolute Auto 2.4 X10*3/uL (1.2-4.9); Lymphocytes Percent Auto 20.5 % (20-40); Mean Corpuscular HGB Conc 32.6 g/dl (31.0-36.0); Mean Corpuscular Hemoglobin 25.2 pg (27.0-33.0); Mean Corpuscular Volume 77.3 fL (80.0-98.0); Mean Platelet Volume 9.3 fL (9.4-12.4); Monocytes Absolute Auto 0.7 X10*3/uL (0.1-1.2); Monocytes Percent Auto 5.9 % (2-11); Neutrophils Absolute Auto 8.2 x10*3/uL (2.0-8.3); Neutrophils Percent Auto 69.8 % (45-73); Platelet Count 335 X10*3/uL (160-400); Red Blood Count 5.16 X10*6/uL (4.60-5.80); Red Cell Distribution Width 15.6 % (11.0-16.0); White Blood Count 11.8 X10*3/uL (4.8-10.8)
[2022-10-14] MEDS: Morphine Sulfate 4 MG/ML CARTRIDGE IVPUSH (09:59)
[2022-10-14] MEDS: Famotidine/PF 20 MG/2 ML VIAL IVPUSH (09:59)
[2022-10-14 10:25] LABS: Alanine Aminotransferase 107 U/L (0-40); Albumin Level 4.2 g/dL (3.5-5.0); Alkaline Phosphatase 83 U/L (39-117); Anion Gap 17 (12-20); Aspartate Amino Transferase 76 U/L (5-37); Bilirubin Total 0.4 mg/dL (0.0-1.0); Blood Urea Nitrogen 18 mg/dL (9-16); Calcium 9.1 mg/dL (8.4-10.2); Carbon Dioxide 20 mmol/L (22-29); Chloride 105 mmol/L (96-108); Creatinine Clr Calc Pharmacy 110.7; Estimated Glomerular Filt Rate > 60; Glucose Random 145 mg/dL (60-115); Lipase 5 U/L (8-78); Sodium 138 mmol/L (135-145); Total Protein 7.4 g/dL (6.5-8.0)
[2022-10-14 10:38] LABS: INTERNATIONAL NORM RATIO 0.9 (0.9-1.1)
--- NOTE | 2022-10-14 10:40 | ED.GENADULT ---
HPI - General Adult General Chief complaint: Dyspnea Stated complaint: SOB, pain on upper R side Time Seen by Provider: 10/14/22 09:09 Source: patient Mode of arrival: ambulatory Limitations: no limitations History of Present Illness HPI narrative: 52-year-old male with past medical history of asthma and recent RSV diagnosis presents to ED for right-sided flank, upper abdominal pain, with pleurisy. patient also states constipation for the past two days with no bowel movements. patient denies coughing up blood. patient denies any leg swelling, calf pain, recent long travel, recent surgery. Related Data Previous Rx's Medication Instructions Recorded pantoprazole 40 mg tablet,delayed 40 mg PO DAILY 30 days #30 tabs 07/17/22 release albuterol sulfate 90 mcg/actuation 2 puff inhalation Q4-6H PRN 08/01/22 aerosol inhaler (ProAir HFA) shortness of breath or wheezing #8.5 grams albuterol sulfate 1.25 mg/3 mL 1.25 mg (3 mL) inhalation Q4H 1 09/06/22 solution for nebulization month #540 mL docusate sodium 100 mg capsule 200 mg PO BEDTIME #60 caps 09/11/22 (Colace) methylcellulose (laxative) 500 mg 500 mg PO BID #60 tabs 09/11/22 tablet (Citrucel) pantoprazole 20 mg tablet,delayed 40 mg PO ONCE 30 days #60 tabs 09/11/22 release polyethylene glycol 3350 17 17 g PO DAILY #510 grams 09/11/22 gram/dose oral powder (Miralax) tiotropium 2.5 mcg-olodaterol 2.5 2 puff inhalation DAILY 30 days #4 09/19/22 mcg/actuation mist for inhalation grams (Stiolto Respimat) benzonatate 200 mg capsule 200 mg PO TID PRN cough #30 caps 10/10/22 prednisone 20 mg tablet 40 mg PO DAILY #8 tabs 10/10/22 albuterol sulfate 90 mcg/actuation 2 puff inhalation Q4-6H PRN 10/14/22 aerosol inhaler (ProAir HFA) shortness of breath or wheezing #8.5 grams oxycodone 5 mg capsule 5 mg PO TID PRN pain 3 days #9 caps 10/14/22 prednisone 20 mg tablet 40 mg PO DAILY 5 days #10 tabs 10/14/22 Allergies Allergy/AdvReac Type Severity Reaction Status Date / Time No Known Allergies Allergy Verified 09/19/22 08:53 Review of Systems Review of Systems: Right-sided flank upper abdominal pain with pleurisy. constipation Yes all other systems are reviewed and are negative [facility] Past Medical History Medical History Asthma Surgical History History of surgery on arm Hx of cholecystectomy Social History Social History Household Members: Family Housing: House Alcohol intake: former Patient Tobacco Use Status: Former Tobacco user e-Cigarette/Vaping Use: Never Used Second Hand Smoke Exposure: No Advance Directives: No Advance Directives Information Provided: Yes service: No Current occupational status: employed Current occupation: works nights Current occupational exposures/hazards: No Physical Exam ED Vital Signs: Vital Signs - 24 hr 10/14/22 14:00 10/14/22 14:26 Temperature 98.1 F Pulse Rate 91 99 Respiratory Rate 17 18 Blood Pressure 131/82 Pulse Oximetry 94 Oxygen Delivery Method Room Air BMI result Body Mass Index 38.5 Const General: cooperative, healthy appearing and acute distress Orientation/consciousness: oriented to person, oriented to place, oriented to time and patient oriented x3 HENMT Head: Yes normal to inspection, Yes No palpable skull fracture present, Yes normocephalic, Yes atraumatic and No abrasion Eyes General: appearance normal, both eyes and all related structures Neck Neck: Yes normal visual inspection, Yes full ROM, Yes no lymphadenopathy, Yes no meningeal signs, Yes trachea midline, Yes supple, No anterior neck swelling and No tender Chest Chest palpation & inspection: normal inspection of the chest Chest/axillae images: 1. Tenderness on palpation. Negative for crepitus, rash, erythema, or ecchymosis Resp Effort & Inspection: normal respiratory effort and able to speak in complete sentences Auscultation: wheezes expiratory wheezes Cardio Jugular venous distension: no JVD Heart sounds: S1 normal heart sound present and S2 normal heart sound present GI Inspection: Yes normal to inspection and No abdominal wall ecchymosis Palpation (GI): Soft to palpation, not firm, Tenderness to palpation present (GI) in the RUQ, no guarding and not rigid General: Yes CVA tenderness (RIght) Back/Spine/Pelvis Back: CVA tenderness (RIght) and No back tenderness Skin General skin exam: no rashes or lesions noted and elasticity normal Neuro Other: negative any neuro deficits General: oriented to person, oriented to place, oriented to time, patient oriented x3, gait normal, tone normal, moves all extremities, Normal light touch and pain sensation, no meningeal signs, no focal motor deficits, CN's II-XI intact bilaterally and normal sensation to monofilament Extrem Other: lower extremities negative for any swelling, pitting edema, or calf tenderness. General: Yes normal to inspection and Yes full ROM Psych Appearance: grossly normal, well kempt and not disheveled Course Course Course Narrative: Patient tachycardic on the monitor heart rate 105 hypertensive with pleurisy with right-sided upper flank pain due to this patient was sent for chest CT to rule out PE. CT scan abdomen ordered to make sure there is no abdominal etiology. Cardiac enzymes ordered. Morphine given for pain meds Reevaluation(s) Reevaluation #1: patient's chest CTA shows right costochondral hematoma. Was sent for head CT scan cervical spine CT to make sure there is no brain bleed or neck fracture although patient does not recall any trauma. Time: 12:55 Reevaluation #2: Vital signs stable. Head CT cervical spine CT normal. Most likely patient has right-sided costochondral hematoma from coughing hard which caused a tear in lower chest upper abdominal wall. Patient chest CT negative for PE. O2 saturation on room air 98% on monitor. Time: 18:22 Medications Administered Discontinued Medications Generic Name Dose Route Start Last Admin Trade Name Freq PRN Reason Stop Dose Admin Albuterol Sulfate 2.5 mg/ 0 mg 10/14/22 13:59 10/14/22 14:23 Ipratropium [place] 0.5 mg INHALE 10/14/22 14:00 1 each ONCE ONE Administration Famotidine 20 mg 10/14/22 09:29 10/14/22 09:59 Famotidine/Pf 20 Mg/2 Ml Vial IVPUSH 10/14/22 09:30 20 mg ONCE ONE Administration Guaifenesin/Codeine Phosphate 10 ml 10/14/22 13:59 10/14/22 14:42 Guaifen/Codeine Sf 200/20/10ml 10 Ml Liquid PO 10/14/22 14:00 10 ml ONCE ONE Administration Iohexol 100 ml 10/14/22 11:12 10/14/22 11:13 Iohexol 350 Mg/Ml 100 Ml Infus..Btl IV 10/14/22 11:13 85 ml ONCE ONE Administration Methylprednisolone Sodium Succinate 125 mg 10/14/22 13:59 10/14/22 14:42 Methylprednisolone Sod Succ 125 Mg/2 Ml Vial IVPUSH 10/14/22 14:00 125 mg ONCE ONE Administration Morphine Sulfate 4 mg 10/14/22 09:39 10/14/22 09:59 Morphine Sulfate 4 Mg/Ml Cartridge IVPUSH 10/14/22 09:40 4 mg ONCE ONE Administration Protocol Medical Decision Making Medical Decision Making [facility] Narrative: 52-year-old male presents to the ED with shortness of breath right flank right upper abdominal pain with tachycardia and hypertension. patient recently diagnosed with RSV last week and has history of asthma. Differential Diagnosis Differential Diagnoses: The differential diagnosis associated with the presentation includes ( PE, heart attack, pneumonia, constipation, Asthma exacerbation due to RSV) Admission/Observation vital signs improved no need for admission. Pending 2nd troponin Lab Data 10/14/22 09:51 10/14/22 09:51 Labs: Lab Results 10/14/22 10/14/22 10/14/22 Range/Units 09:51 09:51 09:51 WBC 11.8 H (4.8-10.8) X10*3/uL RBC 5.16 (4.60-5.80) X10*6/uL Hgb 13.0 L (14.0-18.0) g/dl Hct 39.9 L (42.0-52.0) % MCV 77.3 L (80.0-98.0) fL MCH 25.2 L (27.0-33.0) pg MCHC 32.6 (31.0-36.0) g/dl RDW 15.6 (11.0-16.0) % Plt Count 335 (160-400) X10*3/uL MPV 9.3 L (9.4-12.4) fL Immature Gran % (Auto) 1.6 H (0.0-0.4) % Neut % (Auto) 69.8 (45-73) % Lymph % (Auto) 20.5 (20-40) % [place] % (Auto) 5.9 (2-11) % Eos % (Auto) 1.7 (0-4) % Baso % (Auto) 0.5 (0-2) % Lymph # (Auto) 2.4 (1.2-4.9) X10*3/uL [place] # (Auto) 0.7 (0.1-1.2) X10*3/uL Eos # (Auto) 0.2 (0.0-0.4) X10*3/uL Baso # (Auto) 0.1 (0.0-0.2) X10*3/uL Abs Immat Gran (auto) 0.19 H (0.00-0.03) X10*3/uL Absolute Neuts (auto) 8.2 (2.0-8.3) x10*3/uL Absolute Nucleated RBC 0.000 (0.0-0.012) X10*3/uL Nucleated RBC % (auto) 0.0 (0.0-0.2) /100WBC PT 10.0 (10.0-13.1) SEC INR 0.9 (0.9-1.1) APTT 20.0 L (26.0-36.4) SEC Sodium 138 (135-145) mmol/L Potassium 4.0 (3.3-5.1) mmol/L Chloride 105 (96-108) mmol/L Carbon Dioxide 20 L (22-29) mmol/L Anion Gap 17 (12-20) BUN 18 H (9-16) mg/dL Creatinine 0.97 (0.5-1.4) mg/dL Estim Creat Clear Calc 110.7 Estimated GFR > 60 Random Glucose 145 H D (60-115) mg/dL Calcium 9.1 D (8.4-10.2) mg/dL Total Bilirubin 0.4 (0.0-1.0) mg/dL AST 76 H (5-37) U/L ALT 107 H (0-40) U/L Alkaline Phosphatase 83 (39-117) U/L Troponin I High Sens (<3.5-35.0) ng/L B-Natriuretic Peptide (<100) pg/mL Total Protein 7.4 (6.5-8.0) g/dL Albumin 4.2 (3.5-5.0) g/dL Lipase 5 L (8-78) U/L Urine Color Urine Appearance Urine pH (5.0-9.0) Ur Specific [place] (1.005-1.025) Urine Protein (Neg-Trace) mg/dL Urine Glucose (UA) (Negative) mg/dL Urine Ketones (Negative) mg/dL Urine Blood (Negative) Urine Nitrite (Negative) Ur Leukocyte Esterase (Negative) Urine RBC (0-2) /HPF Urine WBC (0-5) /HPF Ur Squamous Epith Cells (0-2) /HPF Urine Bacteria (None Seen) Hyaline Casts (0-2) /LPF 10/14/22 10/14/22 10/14/22 Range/Units 09:51 09:52 12:38 WBC (4.8-10.8) X10*3/uL RBC (4.60-5.80) X10*6/uL Hgb (14.0-18.0) g/dl Hct (42.0-52.0) % MCV (80.0-98.0) fL MCH (27.0-33.0) pg MCHC (31.0-36.0) g/dl RDW (11.0-16.0) % Plt Count (160-400) X10*3/uL MPV (9.4-12.4) fL Immature Gran % (Auto) (0.0-0.4) % Neut % (Auto) (45-73) % Lymph % (Auto) (20-40) % [place] % (Auto) (2-11) % Eos % (Auto) (0-4) % Baso % (Auto) (0-2) % Lymph # (Auto) (1.2-4.9) X10*3/uL [place] # (Auto) (0.1-1.2) X10*3/uL Eos # (Auto) (0.0-0.4) X10*3/uL Baso # (Auto) (0.0-0.2) X10*3/uL Abs Immat Gran (auto) (0.00-0.03) X10*3/uL Absolute Neuts (auto) (2.0-8.3) x10*3/uL Absolute Nucleated RBC (0.0-0.012) X10*3/uL Nucleated RBC % (auto) (0.0-0.2) /100WBC PT (10.0-13.1) SEC INR (0.9-1.1) APTT (26.0-36.4) SEC Sodium (135-145) mmol/L Potassium (3.3-5.1) mmol/L Chloride (96-108) mmol/L Carbon Dioxide (22-29) mmol/L Anion Gap (12-20) BUN (9-16) mg/dL Creatinine (0.5-1.4) mg/dL Estim Creat Clear Calc Estimated GFR Random Glucose (60-115) mg/dL Calcium (8.4-10.2) mg/dL Total Bilirubin (0.0-1.0) mg/dL AST (5-37) U/L ALT (0-40) U/L Alkaline Phosphatase (39-117) U/L Troponin I High Sens 6.0 (<3.5-35.0) ng/L B-Natriuretic Peptide 38 (<100) pg/mL Total Protein (6.5-8.0) g/dL Albumin (3.5-5.0) g/dL Lipase (8-78) U/L Urine Color Yellow Urine Appearance Clear Urine pH 5.5 (5.0-9.0) Ur Specific [place] >= 1.030 H (1.005-1.025) Urine Protein 30 (1+) H (Neg-Trace) mg/dL Urine Glucose (UA) Negative (Negative) mg/dL Urine Ketones Negative (Negative) mg/dL Urine Blood Negative (Negative) Urine Nitrite Negative (Negative) Ur Leukocyte Esterase Negative (Negative) Urine RBC 0-2 (0-2) /HPF Urine WBC 0-5 (0-5) /HPF Ur Squamous Epith Cells 0-2 (0-2) /HPF Urine Bacteria None Seen (None Seen) Hyaline Casts 0-2 (0-2) /LPF 10/14/22 Range/Units 17:52 WBC (4.8-10.8) X10*3/uL RBC (4.60-5.80) X10*6/uL Hgb (14.0-18.0) g/dl Hct (42.0-52.0) % MCV (80.0-98.0) fL MCH (27.0-33.0) pg MCHC (31.0-36.0) g/dl RDW (11.0-16.0) % Plt Count (160-400) X10*3/uL MPV (9.4-12.4) fL Immature Gran % (Auto) (0.0-0.4) % Neut % (Auto) (45-73) % Lymph % (Auto) (20-40) % [place] % (Auto) (2-11) % Eos % (Auto) (0-4) % Baso % (Auto) (0-2) % Lymph # (Auto) (1.2-4.9) X10*3/uL [place] # (Auto) (0.1-1.2) X10*3/uL Eos # (Auto) (0.0-0.4) X10*3/uL Baso # (Auto) (0.0-0.2) X10*3/uL Abs Immat Gran (auto) (0.00-0.03) X10*3/uL Absolute Neuts (auto) (2.0-8.3) x10*3/uL Absolute Nucleated RBC (0.0-0.012) X10*3/uL Nucleated RBC % (auto) (0.0-0.2) /100WBC PT (10.0-13.1) SEC INR (0.9-1.1) APTT (26.0-36.4) SEC Sodium (135-145) mmol/L Potassium (3.3-5.1) mmol/L Chloride (96-108) mmol/L Carbon Dioxide (22-29) mmol/L Anion Gap (12-20) BUN (9-16) mg/dL Creatinine (0.5-1.4) mg/dL Estim Creat Clear Calc Estimated GFR Random Glucose (60-115) mg/dL Calcium (8.4-10.2) mg/dL Total Bilirubin (0.0-1.0) mg/dL AST (5-37) U/L ALT (0-40) U/L Alkaline Phosphatase (39-117) U/L Troponin I High Sens 4.6 (<3.5-35.0) ng/L B-Natriuretic Peptide (<100) pg/mL Total Protein (6.5-8.0) g/dL Albumin (3.5-5.0) g/dL Lipase (8-78) U/L Urine Color Urine Appearance Urine pH (5.0-9.0) Ur Specific [place] (1.005-1.025) Urine Protein (Neg-Trace) mg/dL Urine Glucose (UA) (Negative) mg/dL Urine Ketones (Negative) mg/dL Urine Blood (Negative) Urine Nitrite (Negative) Ur Leukocyte Esterase (Negative) Urine RBC (0-2) /HPF Urine WBC (0-5) /HPF Ur Squamous Epith Cells (0-2) /HPF Urine Bacteria (None Seen) Hyaline Casts (0-2) /LPF Independent Interpretation I performed an independent interpretation of an: EKG Interpretation: sinus tachycardia. Ventricular rate 109. CO interval 174. QRS 70. QTC 455. Negative STEMI. Radiology Impression Discussion of test interpretation with radiology: I have reviewed the radiologist's reading. Prescription Management I considered prescription management with: Pain Medication (oxycodone. albuterol, prednisone) Discharge Plan Discharge Clinical Impression: Asthma with exacerbation, Hematoma Patient Disposition: Home, Self-Care Instructions: Asthma (ED), Hematoma (ED) Additional Instructions: tiene un hematoma en el lado derecho de la pared abdominal superior del t?rax que le est? causando dolor. Se le ankit? de matthew con medicamentos para el dolor y se le recomendar? hielo y luego compresiones tibias en el ?zbigniew para aliviar el dolor y reducir montanez dariel?o. Ser? dado de matthew con esteroides e inhalador de albuterol por exacerbaci?n de asma por RSV. Regrese al servicio de urgencias si tiene sangrado rectal, empeoramiento del dolor tor?cico/abdominal derecho, fiebre, escalofr?os, aumento del dariel?o del abdomen o el t?rax, hinchaz?n de las piernas, dolor en la pantorrilla, tos con marcella o cualquier otro s?ntoma preocupante. Por favor, gerald un seguimiento con PCP. Prescriptions: New prednisone 20 mg tablet 40 mg PO DAILY 5 Days Qty: 10 0RF albuterol sulfate [ProAir HFA] 90 mcg/actuation HFA aerosol inhaler 2 puff inhalation Q4-6H PRN (Reason: shortness of breath or wheezing) Qty: 8.5 0RF oxycodone 5 mg capsule 5 mg PO TID PRN (Reason: pain) 3 Days Qty: 9 0RF Rx Instructions: Partial Fill upon patient request. No Action prednisone 20 mg tablet 40 mg PO DAILY Qty: 8 0RF benzonatate 200 mg capsule 200 mg PO TID PRN (Reason: cough) Qty: 30 0RF albuterol sulfate 1.25 mg/3 mL solution for nebulization 1.25 mg inhalation Q4H 30 Days Qty: 540 5RF albuterol sulfate [ProAir HFA] 90 mcg/actuation HFA aerosol inhaler 2 puff inhalation Q4-6H PRN (Reason: shortness of breath or wheezing) Qty: 8.5 5RF pantoprazole 40 mg tablet,delayed release (DR/EC) 40 mg PO DAILY 30 Days Qty: 30 11RF docusate sodium [Colace] 100 mg capsule 200 mg PO BEDTIME Qty: 60 5RF polyethylene glycol 3350 [Miralax] 17 gram/dose powder 17 g PO DAILY Qty: 510 6RF Citrucel 500 mg tablet 500 mg PO BID Qty: 60 5RF pantoprazole 20 mg tablet,delayed release (DR/EC) 40 mg PO ONCE 30 Days Qty: 60 6RF Stiolto Respimat 2.5-2.5 mcg/actuation mist 2 puff inhalation DAILY 30 Days Qty: 4 6RF Referrals: [facility] [place] [facility] [Provider Group] ( Right sided Costonchondral hematoma) María Hubbard NP [Primary Care Provider] - (Right costochondrol hematoma) Interventions: ED Discharge Assessment Last Done: 10/14/22 18:50 Discharge Date/Time: 10/14/22 18:51 Print Language: Prydeinig
[2022-10-14] MEDS: iohexoL 350 MG/ML 100 ML INFUS..BTL IV (11:13)
[2022-10-14 11:39] LABS: B Type Natriuretic Peptide 38 pg/mL (<100)
[2022-10-14 12:44] LABS: Appearance Urine Clear; Color Urine Yellow; Glucose Urine UA Negative (Negative); Leukocyte Esterase Urine Negative (Negative); Nitrite Urine Negative (Negative); PH 5.5 (5.0-9.0); Specific Gravity - Urine >= 1.030 (1.005-1.025); UMIC TRIGGER UACC YES; Urine Blood Negative (Negative); Urine Ketones Negative (Negative); Urine Protein 30 (1+) mg/dL (Neg-Trace)
[2022-10-14 12:49] LABS: Bacteria Urine None Seen (None Seen); Hyaline Casts Urine 0-2 /LPF (0-2); RBC Urine 0-2 /HPF (0-2); Squamous Epithelial Cell Urine 0-2 /HPF (0-2); WBC Urine 0-5 /HPF (0-5)
[2022-10-14 14:00] VITALS: BP 131/82; PULSE 91; RESP 17; TEMP 36.7; O2SAT 94
[2022-10-14 14:26] VITALS: PULSE 99; RESP 18; O2SAT 95
[2022-10-14] MEDS: methylPREDNISolone Sod Succ 125 MG/2 ML VIAL IVPUSH (14:42)
[2022-10-14] MEDS: guaiFEN/Codeine SF 200/20/10ML 10 ML LIQUID PO (14:42)
[2022-10-14 18:19] LABS: Troponin-I High Sensitivity 4.6 ng/L (<3.5-35.0)
== END 2022-10-14 18:51 | disposition home or self-care (01) ==
PROVIDERS: Physician Assistant; Emergency Provider Emergency Medicine Emergency Medical Services; PCP Hospitalist
DX: J45.901 Unspecified asthma with (acute) exacerbation (principal); M54.2 Cervicalgia; R06.02 Shortness of breath; R10.11 Right upper quadrant pain; R00.0 Tachycardia, unspecified; R51.9 Headache, unspecified; Z79.899 Other long term (current) drug therapy
CPT/HCPCS: 36415; 70450; 71275; 72125; 74177; 80053; 81001; 83690; 83880; 84484; 85025; 85610; 85730; 93005; 96374; 96375; 99285; J2270; J2930; Q9967

== ENCOUNTER 2022-10-19 08:37 | Emergency (ER) | payer OTHER, SELFPAY ==
--- NOTE | ~2022-10-19 | CT_ITS ---
EXAMINATION: CT CHEST WITH CONTRAST CLINICAL INFORMATION: Recent hematoma, increased pain and bruising. COMPARISON: Chest CTA dated 10/14/2022. TECHNIQUE: Multidetector volumetric CT imaging of the chest was obtained after the administration of 50 mL of Omnipaque 350 intravenous contrast without immediate adverse reactions. Axial MIP volume rendering provided. Sagittal and coronal reformatted images were obtained. This CT examination was performed using dose optimization techniques as appropriate, variously including the following: *Automated exposure control *Adjustment of mA and/or kV according to patient size (this includes techniques or standardized protocols for targeted exams where dose is matched to indication/reason for exam; i.e. extremities or head) *Use of iterative reconstruction technique DLP: 342 mGy-cm FINDINGS: LUNGS/PLEURA/AIRWAYS: A small right pleural effusion with mild adjacent compressive atelectasis. No significant/suspicious pulmonary nodules. No focal consolidation or pneumothorax. The airways are patent. MEDIASTINUM: The visualized thyroid gland is unremarkable. The thoracic aorta is unremarkable. No significant coronary artery calcifications. No pericardial effusion. UPPER ABDOMEN: Diffuse decreased hepatic attenuation without focal abnormality. Partial visualization of fluid attenuation right upper pole renal cyst measuring 3.9 cm in AP dimension (image 56, series 3). No mediastinal or hilar lymphadenopathy. MUSCULOSKELETAL: Mild multilevel degenerative changes. No acute/suspicious abnormality. SOFT TISSUES: Mild presternal subcutaneous infiltrative changes inferiorly without focal abnormality. CT/CT chest w IV con IMPRESSION: 1. Small right pleural effusion without significant interval change. No other significant acute abnormality. Short-term radiographic follow-up is recommended as clinically indicated. 2. Hepatic steatosis. 3 Right renal cyst and shows benign features not requiring follow-up. 4. Mild inferior presternal subcutaneous infiltrative changes without focal fluid collection or underlying abnormality. This appears increased from the previous study. Correlate with physical exam. Fleischner guidelines were followed.
--- NOTE | ~2022-10-19 | XR_ITS ---
EXAMINATION: XR CHEST CLINICAL INFORMATION: Shortness of breath. COMPARISON: 10/10/2022 chest radiograph. TECHNIQUE: 2 views of the chest were obtained. FINDINGS: Mild linear markings in the lingula. The lungs otherwise clear. There are no pleural effusions. The heart and mediastinal structures are unremarkable. XR/XR chest 2V IMPRESSION: Mild linear atelectasis versus scarring in the lingula. No acute cardiopulmonary process.
[2022-10-19 08:41] VITALS: BP 188/109; PULSE 84; RESP 20; TEMP 36.1; O2SAT 94; BMI 47.2
--- NOTE | 2022-10-19 09:05 | ED.GENADULT ---
HPI - General Adult General Chief complaint: General Medical Stated complaint: R Side Pain Time Seen by Provider: 10/19/22 09:03 Source: patient and slide developer Mode of arrival: ambulatory Limitations: no limitations History of Present Illness HPI narrative: 52 yo male with history of COPD/asthma, GERD, recent dx of RSV on 10/10 who presents to the ER for evaluation of ongoing right sided rib pain. He was seen here on 10/14 - had CTA chest showing small right sided pleural effusion w/ compressive RLL atelectasis, minimal groundglass opacities in RUL and lingula. He also had moderate soft tissue swelling right anteriolateral 8th/9th costochondral junction likely hematoma without associated rib fracture. He was discharged with prednisone, albuterol pump and 9 tablets of oxycodone. He presents back today with ongoing right-sided chest wall pain, coughing and shortness of breath. He denies any fever or chills at home. He states he took all of his oxycodone and and is still having pain. He reports they did improve the pain to a 3 or 4/10. Pain is worse with movement and coughing. He is not bringing up any phlegm. He denies any chest pain. MD complaint: Right-sided chest wall pain Onset (ago): day(s) Location: chest Radiation: non-radiation Severity: severe Severity scale (1-10): 8 Quality: sharp Pain Consistency: intermittent Relieving factors: immobilization and rest Exacerbating factors: movement and other (Coughing) Associated symptoms: cough and shortness of breath Treatments prior to arrival: none Related Data Previous Rx's Medication Instructions Recorded pantoprazole 40 mg tablet,delayed 40 mg PO DAILY 30 days #30 tabs 07/17/22 release albuterol sulfate 90 mcg/actuation 2 puff inhalation Q4-6H PRN 08/01/22 aerosol inhaler (ProAir HFA) shortness of breath or wheezing #8.5 grams albuterol sulfate 1.25 mg/3 mL 1.25 mg (3 mL) inhalation Q4H 1 09/06/22 solution for nebulization month #540 mL docusate sodium 100 mg capsule 200 mg PO BEDTIME #60 caps 09/11/22 (Colace) methylcellulose (laxative) 500 mg 500 mg PO BID #60 tabs 09/11/22 tablet (Citrucel) pantoprazole 20 mg tablet,delayed 40 mg PO ONCE 30 days #60 tabs 09/11/22 release polyethylene glycol 3350 17 17 g PO DAILY #510 grams 09/11/22 gram/dose oral powder (Miralax) tiotropium 2.5 mcg-olodaterol 2.5 2 puff inhalation DAILY 30 days #4 09/19/22 mcg/actuation mist for inhalation grams (Stiolto Respimat) benzonatate 200 mg capsule 200 mg PO TID PRN cough #30 caps 10/10/22 prednisone 20 mg tablet 40 mg PO DAILY #8 tabs 10/10/22 albuterol sulfate 90 mcg/actuation 2 puff inhalation Q4-6H PRN 10/14/22 aerosol inhaler (ProAir HFA) shortness of breath or wheezing #8.5 grams oxycodone 5 mg capsule 5 mg PO TID PRN pain 3 days #9 caps 10/14/22 prednisone 20 mg tablet 40 mg PO DAILY 5 days #10 tabs 10/14/22 azithromycin 250 mg tablet See Rx Instructions PO .COMPLEX #6 10/19/22 (Zithromax Z-Allen) tabs benzonatate 100 mg capsule 100 mg PO TID PRN cough #30 caps 10/19/22 oxycodone 5 mg tablet 5 mg PO Q6H PRN pain #10 tabs 10/19/22 Allergies Allergy/AdvReac Type Severity Reaction Status Date / Time No Known Allergies Allergy Verified 09/19/22 08:53 Review of Systems Review of Systems: Yes all other systems are reviewed and are negative PMFSH Past Medical History Medical History Asthma Surgical History History of surgery on arm Hx of cholecystectomy Social History Social History Household Members: Family Housing: House Alcohol intake: former Patient Tobacco Use Status: Former Tobacco user e-Cigarette/Vaping Use: Never Used Second Hand Smoke Exposure: No Advance Directives: No Advance Directives Information Provided: No service: No Current occupational status: employed Current occupation: works nights Current occupational exposures/hazards: No Physical Exam ED Vital Signs: Vital Signs - 24 hr 10/19/22 08:41 10/19/22 11:51 Temperature 96.9 F Pulse Rate 84 61 Respiratory Rate 20 16 Blood Pressure 188/109 H 155/94 H Pulse Oximetry 94 96 Oxygen Delivery Method Room Air Room Air BMI result Body Mass Index 47.2 Appearance: Alert. Oriented X3. No acute distress. Eyes: Pupils equal, round and reactive to light. ENT: Pharynx normal. Neck: Normal inspection. Neck supple. CVS: Normal heart rate and rhythm. Pulses normal. Anterior chest wall with a moderate size bluish and yellow ecchymotic area around the xiphoid and inferior sternum. Nontender. No crepitus. Respiratory: No respiratory distress. Breath sounds normal. Right anterior lateral chest wall tenderness with old, yellowing ecchymosis over the lower rib. Abdomen: Obese, rotund. Well-healed surgical scar in the right upper quadrant a bowel 7 in long. Soft and nontender. +BS x4 Skin: Skin warm and dry. Normal skin color. Normal skin turgor. No rashes. Extremities: No lower extremity edema. No calf tenderness. Neuro: Oriented X 3. No motor deficit. No sensory deficit. Course Course Course Narrative: 52-year-old male with history of asthma, COPD, recent diagnosis of RSV and subsequently developed a chest wall hematoma, most likely due to coughing who presents back to the ER with ongoing right-sided chest pain, coughing, shortness of breath. He ran out of oxycodone and is having ongoing pain. Vital signs are stable on arrival. On examination he does have new ecchymosis in the anterior chest wall just inferior to the sternum. Nontender. Denies any trauma or falls. He is not on anticoagulation. Unclear etiology of the ecchymosis. Will repeat lab workup today and CT scan of the chest with contrast to assess for extravasation or worsening hematoma. Reevaluation(s) Reevaluation #1: Lab workup does show some slight worsening of his H&H down to 12.1/37.5 from 13/39.9. His platelets and coags are normal. CT scan is pending. He remains hemodynamically stable. Pain is improved to a 3/10 with a dose of oxycodone and Tylenol Reevaluation #2: CT scan with small right pleural effusion, not changed from prior. No mention of worsening hematoma or fluid collection. There is a mild inferior parasternal subcu infiltrative changes without fluid collection or underlying abnormality, this is consistent with the bruising seeing on examination. He remains hemodynamically stable, saturating well. Pain is improved. At this point he is stable for discharge home with outpatient follow-up. Case was discussed with Dr. Buitrago. lead mechanical engineer used to discuss results and plan. All questions were answered. Patient stable. Medications Administered Discontinued Medications Generic Name Dose Route Start Last Admin Trade Name [place] PRN Reason Stop Dose Admin Acetaminophen 975 mg 10/19/22 09:33 10/19/22 10:06 Acetaminophen 325 Mg Tablet PO 10/19/22 09:34 975 mg ONCE ONE Administration Iohexol 100 ml 10/19/22 11:00 10/19/22 11:00 Iohexol 350 Mg/Ml 100 Ml Infus..Btl IV 10/19/22 11:01 65 ml ONCE ONE Administration Oxycodone HCl 5 mg 10/19/22 09:33 10/19/22 10:06 Oxycodone Hcl Immed Release 5 Mg Tablet PO 10/19/22 09:34 5 mg ONCE ONE Administration Medical Decision Making Medical Decision Making MDM Narrative: 52-year-old male with history of asthma, COPD, recent RSV diagnosis and right chest wall hematoma presents to the ER for evaluation of right sided chest wall pain, shortness of breath and coughing. Exam with new bruising. Differential Diagnosis Differential Diagnoses: The differential diagnosis associated with the presentation includes Worsening chest wall hematoma, hemothorax, trauma, pneumonia, less likely ACS or PE. Lab Data MDM Lab Attestation statement: I reviewed the patient's lab results. Were independently reviewed lab workup, mild leukocytosis 13.7 which is slightly increased from prior. Mild anemia, slightly decreased from prior. Normal platelets and coags. No metabolic derangements. 10/19/22 09:59 10/19/22 09:59 Labs: Lab Results 10/19/22 10/19/22 10/19/22 Range/Units 09:59 09:59 09:59 WBC 13.7 H (4.8-10.8) X10*3/uL RBC 4.76 (4.60-5.80) X10*6/uL Hgb 12.1 L (14.0-18.0) g/dl Hct 37.5 L (42.0-52.0) % MCV 78.8 L (80.0-98.0) fL MCH 25.4 L (27.0-33.0) pg MCHC 32.3 (31.0-36.0) g/dl RDW 16.9 H (11.0-16.0) % Plt Count 387 (160-400) X10*3/uL MPV 9.0 L (9.4-12.4) fL Immature Gran % (Auto) Cancelled Neut % (Auto) Cancelled Lymph % (Auto) Cancelled [place] % (Auto) Cancelled Eos % (Auto) Cancelled Baso % (Auto) Cancelled Lymph # (Auto) Cancelled [place] # (Auto) Cancelled Eos # (Auto) Cancelled Baso # (Auto) Cancelled Abs Immat Gran (auto) Cancelled Absolute Neuts (auto) Cancelled Absolute Nucleated RBC 0.070 H (0.0-0.012) X10*3/uL Nucleated RBC % (auto) 0.5 H (0.0-0.2) /100WBC Neutrophils % (Manual) 67 (45-73) % Band Neutrophils % 5 (3-5) % Lymphocytes % (Manual) 18 L (20-40) % Atypical Lymphs % (Man) 1 (0-6) % Monocytes % (Manual) 4 (2-11) % Eosinophils % (Manual) 2 (0-4) % Basophils % (Manual) 1 (0-2) % Metamyelocytes % 1 % Myelocytes % 1 % Abs Neuts (Manual) 9.9 H (2.0-8.3) X10*3/uL Lymphocytes # (Manual) 2.5 (1.2-4.9) X10*3/uL Atyp Lymphs # (Manual) 0.1 x10*3/uL Monocytes # (Manual) 0.5 (0.1-1.2) X10*3/uL Eosinophils # (Manual) 0.3 (0.0-0.4) X10*3/uL Basophils # (Manual) 0.1 (0.0-0.2) X10*3/uL Metamyelocytes # 0.1 X10*3/uL Myelocytes # 0.1 X10*/uL Platelet Estimate NORMAL (NORMAL) Large Platelets PRESENT Plt Morphology Comment NOTED RBC Morphology NOTED Polychromasia 1+ (0-2) /OIF Hypochromasia 1+ (5-14) /OIF Macrocytosis 1+ (5-14) /OIF PT 10.1 (10.0-13.1) SEC INR 0.9 (0.9-1.1) APTT 27.2 D (26.0-36.4) SEC Sodium 141 (135-145) mmol/L Potassium 3.4 (3.3-5.1) mmol/L Chloride 106 (96-108) mmol/L Carbon Dioxide 27 (22-29) mmol/L Anion Gap 11 L (12-20) BUN 15 (9-16) mg/dL Creatinine 0.82 (0.5-1.4) mg/dL Estim Creat Clear Calc 119.9 Estimated GFR > 60 Random Glucose 138 H (60-115) mg/dL Calcium 9.1 (8.4-10.2) mg/dL Magnesium 1.9 (1.6-2.6) mg/dL Total Bilirubin 0.5 (0.0-1.0) mg/dL Direct Bilirubin 0.2 (0.0-0.5) mg/dL AST 27 (5-37) U/L ALT 123 H (0-40) U/L Alkaline Phosphatase 110 (39-117) U/L Total Protein 6.9 (6.5-8.0) g/dL Albumin 4.1 (3.5-5.0) g/dL Urine Color Urine Appearance Urine pH (5.0-9.0) Ur Specific [place] (1.005-1.025) Urine Protein (Neg-Trace) mg/dL Urine Glucose (UA) (Negative) mg/dL Urine Ketones (Negative) mg/dL Urine Blood (Negative) Urine Nitrite (Negative) Ur Leukocyte Esterase (Negative) Urine RBC (0-2) /HPF Urine WBC (0-5) /HPF Ur Squamous Epith Cells (0-2) /HPF Urine Bacteria (None Seen) Hyaline Casts (0-2) /LPF 10/19/22 Range/Units 09:59 WBC (4.8-10.8) X10*3/uL RBC (4.60-5.80) X10*6/uL Hgb (14.0-18.0) g/dl Hct (42.0-52.0) % MCV (80.0-98.0) fL MCH (27.0-33.0) pg MCHC (31.0-36.0) g/dl RDW (11.0-16.0) % Plt Count (160-400) X10*3/uL MPV (9.4-12.4) fL Immature Gran % (Auto) Neut % (Auto) Lymph % (Auto) [place] % (Auto) Eos % (Auto) Baso % (Auto) Lymph # (Auto) [place] # (Auto) Eos # (Auto) Baso # (Auto) Abs Immat Gran (auto) Absolute Neuts (auto) Absolute Nucleated RBC (0.0-0.012) X10*3/uL Nucleated RBC % (auto) (0.0-0.2) /100WBC Neutrophils % (Manual) (45-73) % Band Neutrophils % (3-5) % Lymphocytes % (Manual) (20-40) % Atypical Lymphs % (Man) (0-6) % Monocytes % (Manual) (2-11) % Eosinophils % (Manual) (0-4) % Basophils % (Manual) (0-2) % Metamyelocytes % % Myelocytes % % Abs Neuts (Manual) (2.0-8.3) X10*3/uL Lymphocytes # (Manual) (1.2-4.9) X10*3/uL Atyp Lymphs # (Manual) x10*3/uL Monocytes # (Manual) (0.1-1.2) X10*3/uL Eosinophils # (Manual) (0.0-0.4) X10*3/uL Basophils # (Manual) (0.0-0.2) X10*3/uL Metamyelocytes # X10*3/uL Myelocytes # X10*/uL Platelet Estimate (NORMAL) Large Platelets Plt Morphology Comment RBC Morphology Polychromasia /OIF Hypochromasia /OIF Macrocytosis /OIF PT (10.0-13.1) SEC INR (0.9-1.1) APTT (26.0-36.4) SEC Sodium (135-145) mmol/L Potassium (3.3-5.1) mmol/L Chloride (96-108) mmol/L Carbon Dioxide (22-29) mmol/L Anion Gap (12-20) BUN (9-16) mg/dL Creatinine (0.5-1.4) mg/dL Estim Creat Clear Calc Estimated GFR Random Glucose (60-115) mg/dL Calcium (8.4-10.2) mg/dL Magnesium (1.6-2.6) mg/dL Total Bilirubin (0.0-1.0) mg/dL Direct Bilirubin (0.0-0.5) mg/dL AST (5-37) U/L ALT (0-40) U/L Alkaline Phosphatase (39-117) U/L Total Protein (6.5-8.0) g/dL Albumin (3.5-5.0) g/dL Urine Color Yellow Urine Appearance Clear Urine pH 5.5 (5.0-9.0) Ur Specific [place] >= 1.030 H (1.005-1.025) Urine Protein Trace (Neg-Trace) mg/dL Urine Glucose (UA) Negative (Negative) mg/dL Urine Ketones Negative (Negative) mg/dL Urine Blood Negative (Negative) Urine Nitrite Negative (Negative) Ur Leukocyte Esterase Negative (Negative) Urine RBC 0-2 (0-2) /HPF Urine WBC 0-5 (0-5) /HPF Ur Squamous Epith Cells 0-2 (0-2) /HPF Urine Bacteria None Seen (None Seen) Hyaline Casts 0-2 (0-2) /LPF Independent Interpretation I performed an independent interpretation of an: Plain X-Ray and CT Scan Interpretation: X-ray reviewed. Small right-sided pleural effusion noted. CT scan reviewed, small right pleural effusion with no major change from the 8th. No visualized rib fractures. No extravasation of contrast. Radiology Impression Discussion of test interpretation with radiology: I have reviewed the radiologist's reading. Radiologist Impression: IMPRESSION: ? 1. Small right pleural effusion without significant interval change. No other significant acute abnormality. Short-term radiographic follow-up is recommended as clinically indicated. 2. Hepatic steatosis. 3 Right renal cyst and shows benign features not requiring follow-up. 4. Mild inferior presternal subcutaneous infiltrative changes without focal fluid collection or underlying abnormality. This appears increased from the previous study. Correlate with physical exam. External Record Review External record reviewed: Office record, Prior outpatient labs and Prior outpatient radiology Prescription Management I considered prescription management with: Pain Medication and Antibiotic Critical Care Time Critical Care Time Critical Care Time: No Discharge Plan Discharge Clinical Impression: Chest wall pain Patient Disposition: Home, Self-Care Instructions: Chest Wall Pain (ED) Additional Instructions: Your CT scan today showed a stable right-sided fluid collection outside of your right lung, recommend repeat imaging by her doctor to ensure resolution in 4-6 weeks. Take the prescribed medications as directed. Also recommend around the clock Tylenol and Motrin for pain. Follow-up with your doctor If you develop new or worsening symptoms call 911 or come back to the ER for further evaluation. King tomograf?a computarizada de hoy mostr? michael acumulaci?n de l?quido estable en el lado derecho fuera de king pulm?n derecho, recomiende que king m?dico repita la yue de im?genes para garantizar la resoluci?n en 4 a 6 semanas. [place] los medicamentos recetados seg?n las indicaciones. Tambi?n recomiendo Tylenol y Motrin las 24 horas del d?a para el dolor. Seguimiento con king m?dico Si desarrolla s?ntomas nuevos o que empeoran, llame al 911 o regrese a la [place] de emergencias para michael evaluaci?n adicional. Prescriptions: New oxycodone 5 mg tablet 5 mg PO Q6H PRN (Reason: pain) Qty: 10 0RF Rx Instructions: Partial Fill upon patient request. azithromycin [Zithromax Z-Allen] 250 mg tablet See Rx Instructions .ROUTE .COMPLEX Qty: 6 0RF Rx Instructions: take 500 mg today (day 1), then 250 mg for 4 days (days 2-5) benzonatate 100 mg capsule 100 mg PO TID PRN (Reason: cough) Qty: 30 0RF No Action prednisone 20 mg tablet 40 mg PO DAILY Qty: 8 0RF benzonatate 200 mg capsule 200 mg PO TID PRN (Reason: cough) Qty: 30 0RF prednisone 20 mg tablet 40 mg PO DAILY 5 Days Qty: 10 0RF albuterol sulfate [ProAir HFA] 90 mcg/actuation HFA aerosol inhaler 2 puff inhalation Q4-6H PRN (Reason: shortness of breath or wheezing) Qty: 8.5 0RF oxycodone 5 mg capsule 5 mg PO TID PRN (Reason: pain) 3 Days Qty: 9 0RF Rx Instructions: Partial Fill upon patient request. albuterol sulfate 1.25 mg/3 mL solution for nebulization 1.25 mg inhalation Q4H 30 Days Qty: 540 5RF albuterol sulfate [ProAir HFA] 90 mcg/actuation HFA aerosol inhaler 2 puff inhalation Q4-6H PRN (Reason: shortness of breath or wheezing) Qty: 8.5 5RF pantoprazole 40 mg tablet,delayed release (DR/EC) 40 mg PO DAILY 30 Days Qty: 30 11RF docusate sodium [Colace] 100 mg capsule 200 mg PO BEDTIME Qty: 60 5RF polyethylene glycol 3350 [Miralax] 17 gram/dose powder 17 g PO DAILY Qty: 510 6RF Citrucel 500 mg tablet 500 mg PO BID Qty: 60 5RF pantoprazole 20 mg tablet,delayed release (DR/EC) 40 mg PO ONCE 30 Days Qty: 60 6RF Stiolto Respimat 2.5-2.5 mcg/actuation mist 2 puff inhalation DAILY 30 Days Qty: 4 6RF Referrals: María Hubbard NP [Primary Care Provider] - Interventions: ED Discharge Assessment Last Done: 10/19/22 13:06 Print Language: Maltese
[2022-10-19 10:06] LABS: Hematocrit 37.5 % (42.0-52.0); Hemoglobin 12.1 g/dl (14.0-18.0); Mean Corpuscular HGB Conc 32.3 g/dl (31.0-36.0); Mean Corpuscular Hemoglobin 25.4 pg (27.0-33.0); Mean Corpuscular Volume 78.8 fL (80.0-98.0); NRBC Pct Auto 0.5 /100WBC (0.0-0.2); Platelet Count 387 X10*3/uL (160-400); Red Blood Count 4.76 X10*6/uL (4.60-5.80); Red Cell Distribution Width 16.9 % (11.0-16.0); White Blood Count 13.7 X10*3/uL (4.8-10.8)
[2022-10-19] MEDS: Acetaminophen 325 MG TABLET 975 MG PO (10:06)
[2022-10-19] MEDS: oxyCODONE HCl Immed Release 5 MG TABLET PO (10:06)
[2022-10-19 10:07] LABS: Appearance Urine Clear; Color Urine Yellow; Glucose Urine UA Negative (Negative); Leukocyte Esterase Urine Negative (Negative); Nitrite Urine Negative (Negative); PH 5.5 (5.0-9.0); Specific Gravity - Urine >= 1.030 (1.005-1.025); Urine Blood Negative (Negative); Urine Ketones Negative (Negative); Urine Protein Trace mg/dL (Neg-Trace)
[2022-10-19 10:12] LABS: Bacteria Urine None Seen (None Seen); Hyaline Casts Urine 0-2 /LPF (0-2); INTERNATIONAL NORM RATIO 0.9 (0.9-1.1); Prothrombin Time 10.1 SEC (10.0-13.1); RBC Urine 0-2 /HPF (0-2); Squamous Epithelial Cell Urine 0-2 /HPF (0-2); WBC Urine 0-5 /HPF (0-5)
[2022-10-19 10:14] LABS: Partial Thromboplastin Time 27.2 SEC (26.0-36.4)
[2022-10-19 10:25] LABS: Alanine Aminotransferase 123 U/L (0-40); Albumin Level 4.1 g/dL (3.5-5.0); Alkaline Phosphatase 110 U/L (39-117); Anion Gap 11 (12-20); Aspartate Amino Transferase 27 U/L (5-37); Bilirubin Direct 0.2 mg/dL (0.0-0.5); Bilirubin Total 0.5 mg/dL (0.0-1.0); Blood Urea Nitrogen 15 mg/dL (9-16); Calcium 9.1 mg/dL (8.4-10.2); Carbon Dioxide 27 mmol/L (22-29); Chloride 106 mmol/L (96-108); Creatinine Clr Calc Pharmacy 119.9; Estimated Glomerular Filt Rate > 60; Glucose Random 138 mg/dL (60-115); Magnesium 1.9 mg/dL (1.6-2.6); Potassium 3.4 mmol/L (3.3-5.1); Sodium 141 mmol/L (135-145); Total Protein 6.9 g/dL (6.5-8.0)
[2022-10-19] MEDS: iohexoL 350 MG/ML 100 ML INFUS..BTL IV (11:00)
[2022-10-19 11:01] LABS: Atypical Lymph Absolute Manual 0.1 x10*3/uL; Atypical Lymphs Percent Manual 1 % (0-6); Band Neutrophils Percent 5 % (3-5); Basophils Abs Manual 0.1 X10*3/uL (0.0-0.2); Basophils Percent Manual 1 % (0-2); Eosinophils Absolute Manual 0.3 X10*3/uL (0.0-0.4); Eosinophils Percent Manual 2 % (0-4); Lymphocytes Absolute Manual 2.5 X10*3/uL (1.2-4.9); Lymphocytes Percent Manual 18 % (20-40); Metamyelocytes Absolute 0.1 X10*3/uL; Metamyelocytes Percent 1 %; Monocytes Absolute Manual 0.5 X10*3/uL (0.1-1.2); Monocytes Percent Manual 4 % (2-11); Myelocytes Absolute 0.1 X10*/uL; Myelocytes Percent 1 %; Neutrophils Absolute Manual 9.9 X10*3/uL (2.0-8.3); Neutrophils Percent Manual 67 % (45-73)
[2022-10-19 11:03] LABS: Macrocytosis 1+ (5-14) /OIF; RBC Morphology NOTED
[2022-10-19 11:04] LABS: Hypochromasia 1+ (5-14) /OIF; Large Platelet PRESENT; Platelet Estimate NORMAL (NORMAL); Platelet Morphology Comment NOTED; Polychromasia 1+ (0-2) /OIF
[2022-10-19 11:51] VITALS: BP 155/94; PULSE 61; RESP 16; O2SAT 96
== END 2022-10-19 14:20 | disposition home or self-care (01) ==
PROVIDERS: Physician Assistant; Emergency Provider Emergency Medicine; PCP Hospitalist
DX: R07.89 Other chest pain (principal); J44.9 Chronic obstructive pulmonary disease, unspecified; R05.9 Cough, unspecified; M54.6 Pain in thoracic spine; Z79.899 Other long term (current) drug therapy
CPT/HCPCS: 36415; 71046; 71260; 80048; 80076; 81001; 83735; 85007; 85027; 85610; 85730; 99284; Q9967

== ENCOUNTER 2022-11-20 10:31 | Outpatient (REF) | payer OTHER, SELFPAY ==
[2022-11-20 15:13] LABS: Cholesterol 316 mg/dL; HDL Cholesterol 58 mg/dL; LDL Cholesterol Calculated 186 mg/dl; Triglycerides 361 mg/dL
[2022-11-20 15:28] LABS: TSH reflex Free T4 2.07 uIU/mL (0.32-4.0)
== END 2022-11-20 10:32 | disposition home or self-care (01) ==
LOC: HO.WFDLDS 10:31
PROVIDERS: Visit Provider Hospitalist
DX: Z00.00 Encounter for general adult medical examination without abnormal findings (principal)
CPT/HCPCS: 36415; 80061; 84443

== ENCOUNTER 2022-12-25 11:12 | Emergency (ER) | payer OTHER, SELFPAY ==
--- NOTE | ~2022-12-25 | XR_ITS ---
EXAMINATION: XR CHEST CLINICAL INFORMATION: Shortness of breath. COMPARISON: 10/19/2022 chest radiographs. TECHNIQUE: 2 views of the chest were obtained. FINDINGS: No significant abnormality is noted involving the heart, lungs, mediastinum, bony thorax or soft tissues. XR/XR chest 2V IMPRESSION: No acute cardiopulmonary process.
[2022-12-25 11:17] VITALS: BP 150/109; PULSE 107; RESP 22; TEMP 36.6; O2SAT 96; BMI 44.2
--- NOTE | 2022-12-25 11:20 | ECG_ITS ---
Test Reason : CP Blood Pressure : / mmHG Vent. Rate : 098 BPM Atrial Rate : 098 BPM P-R Int : 188 ms QRS Dur : 064 ms QT Int : 336 ms P-R-T Axes : 020 010 033 degrees QTc Int : 428 ms Normal sinus rhythm Possible Inferior infarct , age undetermined Abnormal ECG When compared with ECG of 14-OCT-2022 09:24, Nonspecific T wave abnormality now evident in Lateral leads Referred By: Generic ED Physician Electronically Signed By:PETERSON STEPHENS MD
[2022-12-25 11:37] LABS: Basophils Absolute Auto 0.1 X10*3/uL (0.0-0.2); Basophils Percent Auto 0.7 % (0-2); Eosinophils Absolute Auto 0.3 X10*3/uL (0.0-0.4); Eosinophils Percent Auto 4.4 % (0-4); Hematocrit 46.5 % (42.0-52.0); Hemoglobin 15.2 g/dl (14.0-18.0); Imm Gran Abs Auto 0.06 X10*3/uL (0.00-0.03); Imm Gran Pct Auto 0.8 % (0.0-0.4); Lymphocytes Absolute Auto 2.2 X10*3/uL (1.2-4.9); Lymphocytes Percent Auto 28.9 % (20-40); Mean Corpuscular HGB Conc 32.7 g/dl (31.0-36.0); Mean Corpuscular Hemoglobin 25.6 pg (27.0-33.0); Mean Corpuscular Volume 78.4 fL (80.0-98.0); Mean Platelet Volume 8.8 fL (9.4-12.4); Monocytes Absolute Auto 0.5 X10*3/uL (0.1-1.2); Neutrophils Absolute Auto 4.4 x10*3/uL (2.0-8.3); Neutrophils Percent Auto 58.2 % (45-73); Platelet Count 382 X10*3/uL (160-400); Red Blood Count 5.93 X10*6/uL (4.60-5.80); Red Cell Distribution Width 14.2 % (11.0-16.0); White Blood Count 7.6 X10*3/uL (4.8-10.8)
[2022-12-25 11:38] LABS: MANUAL DIFF FLAG NO
[2022-12-25 11:49] LABS: COVID-19 Test Negative (Negative); IDNOW Serial# BCCEAD1C
[2022-12-25 11:54] LABS: Anion Gap 15 (12-20); Blood Urea Nitrogen 19 mg/dL (9-16); Calcium 9.7 mg/dL (8.4-10.2); Carbon Dioxide 25 mmol/L (22-29); Chloride 104 mmol/L (96-108); Creatinine Clr Calc Pharmacy 116.9; Estimated Glomerular Filt Rate > 60; Glucose Random 113 mg/dL (60-115); Potassium 4.3 mmol/L (3.3-5.1); Sodium 140 mmol/L (135-145)
[2022-12-25 12:00] LABS: B Type Natriuretic Peptide < 10 pg/mL (<100)
[2022-12-25 12:09] LABS: Troponin-I High Sensitivity < 3.5 ng/L (<3.5-35.0)
--- NOTE | 2022-12-25 13:06 | ED.URI ---
HPI - URI/Sore Throat General Chief Complaint: Upper Respiratory Symptoms Stated Complaint: right side pain/ broken rib? 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 Patient reports that he has a known right rib fracture which was diagnosed 4 months ago, but reports that since he has been coughing and ultimately this right sided rib pain has worsened. He states that 1 month ago his primary care physician started him on lisinopril and has had a dry cough for the last two weeks. He has been using his albuterol nebulizer every day which does provide him with some relief. He denies any fevers, chills, nausea, vomiting, chest pain, or palpitations. Denies sick contacts, denies recent travel. He denies any other complaints or concerns at this time. MD elicited complaint: cough Onset (ago): week(s) Consistency: intermittent Severity: moderate Able to tolerate fluids by mouth: Yes Exacerbating factors: nothing Relieving factors: nothing Associated symptoms: cough and shortness of breath Treatments prior to arrival: none Related Data Previous Rx's Medication Instructions Recorded pantoprazole 40 mg tablet,delayed 40 mg PO DAILY 30 days #30 tabs 07/17/22 release albuterol sulfate 1.25 mg/3 mL 1.25 mg (3 mL) inhalation Q4H 1 09/06/22 solution for nebulization month #540 mL docusate sodium 100 mg capsule 200 mg PO BEDTIME #60 caps 09/11/22 (Colace) methylcellulose (laxative) 500 mg 500 mg PO BID #60 tabs 09/11/22 tablet (Citrucel) polyethylene glycol 3350 17 17 g PO DAILY #510 grams 09/11/22 gram/dose oral powder (Miralax) albuterol sulfate 90 mcg/actuation 2 puff inhalation Q4-6H PRN 10/14/22 aerosol inhaler (ProAir HFA) shortness of breath or wheezing #8.5 grams atorvastatin 40 mg tablet 40 mg PO BEDTIME #90 tabs 11/20/22 blood pressure kit-extra large #1 ea 11/20/22 cephalexin 750 mg capsule 750 mg PO BID #20 caps 11/20/22 miscellaneous medical supply See Rx Instructions miscellaneous 11/20/22 .COMPLEX #1 ea coenzyme Q10 100 mg tablet 100 mg PO DAILY #90 tabs 11/26/22 amlodipine 10 mg tablet (Norvasc) 10 mg PO DAILY #30 tabs 11/29/22 tiotropium 2.5 mcg-olodaterol 2.5 2 puff inhalation DAILY 30 days #4 12/07/22 mcg/actuation mist for inhalation grams (Stiolto Respimat) hydrochlorothiazide 12.5 mg tablet 12.5 mg PO DAILY #30 tabs 12/25/22 ibuprofen 600 mg tablet 600 mg PO Q8H PRN pain #30 tabs 12/25/22 lidocaine 5 % topical patch 1 patch topical DAILY #15 ea 12/25/22 (Lidoderm) prednisone 20 mg tablet 40 mg PO DAILY #10 tabs 12/25/22 Allergies Allergy/AdvReac Type Severity Reaction Status Date / Time lisinopril AdvReac Cough Verified 12/25/22 11:16 Review of Systems Review of Systems: Yes all other systems are reviewed and are negative Constitutional: Constitutional: Reports no additional constitutional complaints, Denies body ache(s), Denies chills, Denies fever(s), Denies headache(s) and Denies weakness Eyes: Eyes: Reports no additional eye complaints and Denies change in vision ENT: Reports system reviewed and no additional complaints, except as documented, Denies dizziness, Denies headache(s), Denies nasal congestion, Denies nasal discharge and Denies neck pain Cardiovascular: Cardiovascular: Reports no additional cardiovascular complaints, Denies chest pain, Denies leg edema and Reports dyspnea Respiratory: Respiratory: Reports no additional respiratory complaints, Reports cough and Reports dyspnea Gastrointestinal: Gastrointestinal: Reports no additional gastrointestinal complaints, Denies abdominal pain, Denies diarrhea, Denies nausea and Denies vomiting Genitourinary: Genitourinary: Denies urinary incontinence Musculoskeletal: Musculoskeletal: Reports no additional musculoskeletal complaints, Denies back pain, Denies arthralgias, Denies joint swelling, Denies neck pain, Denies numbness and Denies tingling Integumentary/Breasts: Skin/Breast: Reports system reviewed and no additional complaints, except as docu and Denies rash Neurologic: Reports system reviewed and no additional complaints, except as documented, Denies Abnormal speech present, Denies dizziness, Denies headache(s), Denies numbness, Denies tingling and Denies weakness PMFSH Past Medical History Attestation statement: The following information was validated with the patient. Medical History Asthma Surgical History History of surgery on arm Hx of cholecystectomy Social History Social History Household Members: Family Housing: House Alcohol intake: former Patient Tobacco Use Status: Former Tobacco user e-Cigarette/Vaping Use: Never Used Second Hand Smoke Exposure: No Advance Directives: No Advance Directives Information Provided: No service: No Current occupational status: employed Current occupation: works nights Current occupational exposures/hazards: No Physical Exam Vital Signs: Vital Signs: Last Vital Signs Temp 98 F 12/25/22 11:17 Pulse 105 H 12/25/22 13:25 Resp 20 12/25/22 13:25 BP 163/102 H 12/25/22 13:25 Pulse Ox 97 12/25/22 13:25 O2 Del Method 12/25/22 13:25 BMI result Body Mass Index 44.2 Const: General: cooperative, healthy appearing, comfortable and no acute distress Orientation/consciousness: patient oriented x3 Limitations: no limitations HEENT: Head: Yes normal to inspection Ears: hearing grossly normal bilaterally General nose exam: Normal external nose present Face and sinus: Yes normal facial exam Mouth: Normal oral and palatal mucosa present Throat: Yes posterior oropharynx normal Eyes: General: appearance normal, both eyes and all related structures Pupils: Equal, round and reactive pupils present Neck: Neck: Yes normal visual inspection Chest: Chest palpation & inspection: normal inspection of the chest Resp: Other: Scant, mild expiratory wheezes noted bilaterally. Effort & Inspection: normal respiratory effort Auscultation: clear to auscultation bilaterally, no crackles, no rales, no rhonchi and wheezes Cardio: Rate: regular rate Rhythm: regular rhythm Peripheral pulses: Peripheral pulses 2+ throughout GI: Inspection: Yes normal to inspection Palpation (GI): Soft to palpation and nontender Auscultation: normal bowel sounds Back/Spine/Pelvis: Other: Mild tenderness to palpation overlying the right anterior ribs approximately ribs 7-8. No ecchymosis or overlying rashes. Thoracic/Lumbar Spine: thoracic and lumbar spine normal to inspection Skin: General skin exam: no rashes or lesions noted Neuro: General: patient oriented x3, no focal motor deficits and normal sensation to monofilament Cranial nerves: Yes Equal, round and reactive pupils present Cognition (Neuro): normal cognition Speech: No Abnormal speech present Gait exam (Neuro): Normal gait present Motor exam (neuro): 5/5 motor strength present throughout Extrem: General: Yes normal to inspection Medical Decision Making Medical Decision Making MDM Narrative: This is a 52-year-old male, with past medical history hypertension asthma, presents to the emergency department for evaluation of dry cough and right-sided rib pain. Patient reports his primary care physician recently started him on a new high blood pressure medication - per external medical records this is lisinopril. Patient reports that he has been struggling with his high blood pressure readings despite him taking amlodipine and lisinopril at home. Patient also reports that he had fractured his right ribs multiple months ago, and reports that his dry cough has been worsening the right-sided rib pain as well as exacerbating his asthma. He has been using his albuterol inhalers at home without any relief. VSS in department. Lung sounds with scant expiratory wheezes. EKG, chest x-ray, labs were obtained and were all normal. Symptoms likely due to htn medication side effect exacerbating asthma. Will start patient on hydrochlorothiazide, continue at home amlodipine and advised to discontinue lisinopril, also given course of prednisone. Encouraged to continue albuterol prn and to follow-up with his primary care physician next week. Pt understands and agrees with plan. Differential Diagnosis Differential Diagnoses: The differential diagnosis associated with the presentation includes medication side effect, bronchitis, pneumonia, asthma, reactive airway disease, URI, viral syndrome, pneumothorax - less likely, PE -less likely Lab Data MDM Lab Attestation statement: I reviewed the patient's lab results. 12/25/22 11:29 12/25/22 11:29 Labs: Lab Results 12/25/22 12/25/22 12/25/22 Range/Units 11:29 11:29 11:29 WBC 7.6 (4.8-10.8) X10*3/uL RBC 5.93 H D (4.60-5.80) X10*6/uL Hgb 15.2 D (14.0-18.0) g/dl Hct 46.5 D (42.0-52.0) % MCV 78.4 L (80.0-98.0) fL MCH 25.6 L (27.0-33.0) pg MCHC 32.7 (31.0-36.0) g/dl RDW 14.2 (11.0-16.0) % Plt Count 382 (160-400) X10*3/uL MPV 8.8 L (9.4-12.4) fL Immature Gran % (Auto) 0.8 H (0.0-0.4) % Neut % (Auto) 58.2 (45-73) % Lymph % (Auto) 28.9 (20-40) % [place] % (Auto) 7.0 (2-11) % Eos % (Auto) 4.4 H (0-4) % Baso % (Auto) 0.7 (0-2) % Lymph # (Auto) 2.2 (1.2-4.9) X10*3/uL [place] # (Auto) 0.5 (0.1-1.2) X10*3/uL Eos # (Auto) 0.3 (0.0-0.4) X10*3/uL Baso # (Auto) 0.1 (0.0-0.2) X10*3/uL Abs Immat Gran (auto) 0.06 H (0.00-0.03) X10*3/uL Absolute Neuts (auto) 4.4 (2.0-8.3) x10*3/uL Absolute Nucleated RBC 0.000 (0.0-0.012) X10*3/uL Nucleated RBC % (auto) 0.0 (0.0-0.2) /100WBC Sodium 140 (135-145) mmol/L Potassium 4.3 D (3.3-5.1) mmol/L Chloride 104 (96-108) mmol/L Carbon Dioxide 25 (22-29) mmol/L Anion Gap 15 (12-20) BUN 19 H (9-16) mg/dL Creatinine 0.84 (0.5-1.4) mg/dL Estim Creat Clear Calc 116.9 Estimated GFR > 60 Random Glucose 113 (60-115) mg/dL Calcium 9.7 D (8.4-10.2) mg/dL Troponin I High Sens < 3.5 (<3.5-35.0) ng/L B-Natriuretic Peptide (<100) pg/mL COVID-19 ([facility]) (Negative) COVID-19 Clin Com 12/25/22 12/25/22 Range/Units 11:29 11:29 WBC (4.8-10.8) X10*3/uL RBC (4.60-5.80) X10*6/uL Hgb (14.0-18.0) g/dl Hct (42.0-52.0) % MCV (80.0-98.0) fL MCH (27.0-33.0) pg MCHC (31.0-36.0) g/dl RDW (11.0-16.0) % Plt Count (160-400) X10*3/uL MPV (9.4-12.4) fL Immature Gran % (Auto) (0.0-0.4) % Neut % (Auto) (45-73) % Lymph % (Auto) (20-40) % [place] % (Auto) (2-11) % Eos % (Auto) (0-4) % Baso % (Auto) (0-2) % Lymph # (Auto) (1.2-4.9) X10*3/uL [place] # (Auto) (0.1-1.2) X10*3/uL Eos # (Auto) (0.0-0.4) X10*3/uL Baso # (Auto) (0.0-0.2) X10*3/uL Abs Immat Gran (auto) (0.00-0.03) X10*3/uL Absolute Neuts (auto) (2.0-8.3) x10*3/uL Absolute Nucleated RBC (0.0-0.012) X10*3/uL Nucleated RBC % (auto) (0.0-0.2) /100WBC Sodium (135-145) mmol/L Potassium (3.3-5.1) mmol/L Chloride (96-108) mmol/L Carbon Dioxide (22-29) mmol/L Anion Gap (12-20) BUN (9-16) mg/dL Creatinine (0.5-1.4) mg/dL Estim Creat Clear Calc Estimated GFR Random Glucose (60-115) mg/dL Calcium (8.4-10.2) mg/dL Troponin I High Sens (<3.5-35.0) ng/L B-Natriuretic Peptide < 10 (<100) pg/mL COVID-19 ([facility]) Negative (Negative) COVID-19 Clin Com See Note Independent Interpretation I performed an independent interpretation of an: EKG Interpretation: EKG with normal sinus rhythm, ventricular rate of 98 beats per minute, normal MS interval, QRS and QTC. No st elevation or depression. I have reviewed and agree with radiology report of chest x-ray. Radiology Impression Discussion of test interpretation with radiology: I have reviewed the radiologist's reading. Radiologist Impression: Chest x-ray EXAMINATION: XR CHEST CLINICAL INFORMATION: Shortness of breath. COMPARISON: 10/19/2022 chest radiographs. TECHNIQUE: 2 views of the chest were obtained. FINDINGS: No significant abnormality is noted involving the heart, lungs, mediastinum, bony thorax or soft tissues. XR/XR chest 2V IMPRESSION: No acute cardiopulmonary process. Chronic Conditions Patient?s care impacted by: Hypertension Discharge Plan Discharge Clinical Impression: Cough, Asthma exacerbation, Hypertension Patient Disposition: Home, Self-Care Instructions: Asthma (ED), Hypertension (ED), Acute Cough (ED) Additional Instructions: Danyelle de ron el lisinopril. Continuar amlodopine. [place] hydrochlorothiazide. [place] la prednisona crystal lo prescrito. Rip un seguimiento con [place] PCP para michael nueva revision de la presion arterial en 1 semana. Prescriptions: New hydrochlorothiazide 12.5 mg tablet 12.5 mg PO DAILY Qty: 30 0RF prednisone 20 mg tablet 40 mg PO DAILY Qty: 10 0RF lidocaine [Lidoderm] 5 % adhesive patch,medicated 1 patch topical DAILY Qty: 15 0RF Rx Instructions: leave on most painful area for up to 12 hrs ibuprofen 600 mg tablet 600 mg PO Q8H PRN (Reason: pain) Qty: 30 0RF No Action atorvastatin 40 mg tablet 40 mg PO BEDTIME Qty: 90 3RF coenzyme Q10 100 mg tablet 100 mg PO DAILY Qty: 90 3RF Stiolto Respimat 2.5-2.5 mcg/actuation mist 2 puff inhalation DAILY 30 Days Qty: 4 6RF albuterol sulfate [ProAir HFA] 90 mcg/actuation HFA aerosol inhaler 2 puff inhalation Q4-6H PRN (Reason: shortness of breath or wheezing) Qty: 8.5 0RF albuterol sulfate 1.25 mg/3 mL solution for nebulization 1.25 mg inhalation Q4H 30 Days Qty: 540 5RF cephalexin 750 mg capsule 750 mg PO BID Qty: 20 0RF (DME) blood pressure kit-extra large Kit See Rx Instructions .Route Qty: 1 0RF Rx Instructions: As directed miscellaneous medical supply Misc See Rx Instructions miscellaneous .COMPLEX Qty: 1 0RF Rx Instructions: air purifier for personal use as directed; amlodipine [Norvasc] 10 mg tablet 10 mg PO DAILY Qty: 30 1RF pantoprazole 40 mg tablet,delayed release (DR/EC) 40 mg PO DAILY 30 Days Qty: 30 11RF docusate sodium [Colace] 100 mg capsule 200 mg PO BEDTIME Qty: 60 5RF polyethylene glycol 3350 [Miralax] 17 gram/dose powder 17 g PO DAILY Qty: 510 6RF Citrucel 500 mg tablet 500 mg PO BID Qty: 60 5RF Referrals: María Hubbard NP [Primary Care Provider] - 1 week Interventions: ED Discharge Assessment Last Done: 12/25/22 13:25 Discharge Date/Time: 12/25/22 13:27 Print Language: [place]an
[2022-12-25 13:25] VITALS: BP 163/102; PULSE 105; RESP 20; O2SAT 97
== END 2022-12-25 13:27 | disposition home or self-care (01) ==
PROVIDERS: Emergency Provider Emergency Medicine; PCP Hospitalist
DX: J45.901 Unspecified asthma with (acute) exacerbation (principal); R07.89 Other chest pain; R05.9 Cough, unspecified; R06.02 Shortness of breath; Z20.822 Contact with and (suspected) exposure to COVID-19; Z20.828 Contact with and (suspected) exposure to other viral communicable diseases; Z79.899 Other long term (current) drug therapy
CPT/HCPCS: 71046; 80048; 83880; 84484; 85025; 87635; 93005; 99283

== ENCOUNTER 2022-12-28 17:46 | Emergency (ER) | payer OTHER, SELFPAY ==
--- NOTE | ~2022-12-28 | XR_ITS ---
EXAMINATION: XR RIBS, RIGHT CLINICAL INFORMATION: Right rib pain COMPARISON: 12/25/2022 TECHNIQUE: 3 views of the right ribs were obtained. PA view of the chest. FINDINGS: Lungs are clear. No consolidation, pneumothorax, or pleural effusion. The cardiomediastinal silhouette and pulmonary vasculature are normal. Osseous structures are unremarkable. A marker overlies the lower right ribs. Ribs are intact. No fractures are identified. XR/XR ribs RT min 3V w CXR1V IMPRESSION: Unremarkable examination.
--- NOTE | ~2022-12-28 | CT_ITS ---
EXAMINATION: CT ANGIOGRAM OF THE CHEST WITH AND WITHOUT CONTRAST (CT PULMONARY ANGIOGRAM FOR PE) CLINICAL INFORMATION: R sided rib pain, sob, cough ro pe and rib fx COMPARISON: CT chest 10/19/2022. Chest x-ray 12/25/2022 TECHNIQUE: Prior to contrast administration, noncontrast localization images were obtained. Subsequently, multidetector volumetric imaging was performed from the thoracic inlet to below the diaphragms following the administration of 65 mL Omnipaque 350 intravenous contrast. No contrast reaction reported Sagittal, coronal, and MIP oblique sagittal reformatted images were obtained on the CT workstation, uploaded to PACS, and reviewed. This CT examination was performed using dose optimization techniques as appropriate, variously including the following: *Automated exposure control *Adjustment of mA and/or kV according to patient size (this includes techniques or standardized protocols for targeted exams where dose is matched to indication/reason for exam; i.e. extremities or head) *Use of iterative reconstruction technique Total exam dose-length product 349 mGy-cm FINDINGS: QUALITY OF STUDY/CONTRAST BOLUS: Limited PULMONARY ARTERIES: No gross evidence of central pulmonary vascular emboli. THORACIC AORTA: No aneurysm or dissection. No aneurysm. LUNG: No focal consolidation, nodules or masses. PLEURA: No pleural effusion or pneumothorax. MEDIASTINUM: Normal heart size. No pericardial effusion. No hilar or mediastinal lymphadenopathy. No evidence of septal bowing or right heart strain. CORONARY ARTERY CALCIFICATION: None visualized on this study. CHEST WALL/AXILLA: No axillary or internal mammary lymphadenopathy. OSSEOUS STRUCTURES: There is a comminuted healing fracture of the left posterior lateral ninth rib. This fracture is evident on the CT chest 10/19/2022. No right-sided rib fracture. No new or acute fracture. Multilevel degenerative spondylosis spine. UPPER ABDOMEN: 3.8 cm cyst at the upper pole right kidney. No follow-up imaging is recommended for simple renal cyst.. No focal lesion in the liver, spleen or pancreas or the adrenal glands. No reflux of contrast into the hepatic veins to suggest elevated right heart pressures. CT/CT angio chest PE protocol IMPRESSION: 1. Limited exam. No gross evidence of central pulmonary vascular emboli. 2. Healing comminuted fracture of the left posterior lateral ninth rib. 3. VTE: negative
[2022-12-28 19:38] VITALS: BP 158/104; PULSE 107; RESP 20; TEMP 36.9; O2SAT 92; BMI 44.2
--- NOTE | 2022-12-28 19:40 | ED.CHESTPAIN ---
HPI - Chest Pain General Chief Complaint: Dyspnea <DARYL Munoz - Last Filed: 12/28/22 19:45> Stated Complaint: rib pain <DARYL Munoz Last Filed: 12/28/22 19:45> Time Seen by Provider: 12/28/22 22:09 <DARYL Munoz Last Filed: 12/28/22 19:45> Source: patient <DARYL Wen Last Filed: 12/29/22 01:39> Mode of arrival: ambulatory <DARYL Wen Last Filed: 12/29/22 01:39> Limitations: no limitations <DARYL Wen Last Filed: 12/29/22 01:39> History of Present Illness HPI narrative: This is a 52-year-old male history of asthma, hypertension, COPD, hypercholesterolemia presenting to the emergency department for evaluation of right-sided rib pain x5 days, patient tells me he has been coughing a lot lately and suddenly started experiencing right-sided rib pain worse with deep breathing, it reports sharp pain to the right lateral aspect of chest, he tells me last time this happened he had a rib fracture. He tells me he fractured his ribs with coughing last time as well. Patient points the side of his chest and tells me pain is right there and does not radiate. No history of DVT or PE. Not anticoagulated. Denies chest pain, nausea, vomiting, fevers, chills headache, vision changes, lower extremity swelling, abdominal pain, weakness. <DARYL Wen Last Filed: 12/29/22 01:39> Related Data Home Medications: Previous Rx's Medication Instructions Recorded pantoprazole 40 mg tablet,delayed 40 mg PO DAILY 30 days #30 tabs 07/17/22 release albuterol sulfate 1.25 mg/3 mL 1.25 mg (3 mL) inhalation Q4H 1 09/06/22 solution for nebulization month #540 mL docusate sodium 100 mg capsule 200 mg PO BEDTIME #60 caps 09/11/22 (Colace) methylcellulose (laxative) 500 mg 500 mg PO BID #60 tabs 09/11/22 tablet (Citrucel) polyethylene glycol 3350 17 17 g PO DAILY #510 grams 09/11/22 gram/dose oral powder (Miralax) albuterol sulfate 90 mcg/actuation 2 puff inhalation Q4-6H PRN 10/14/22 aerosol inhaler (ProAir HFA) shortness of breath or wheezing #8.5 grams atorvastatin 40 mg tablet 40 mg PO BEDTIME #90 tabs 11/20/22 blood pressure kit-extra large #1 ea 11/20/22 cephalexin 750 mg capsule 750 mg PO BID #20 caps 11/20/22 miscellaneous medical supply See Rx Instructions miscellaneous 11/20/22 .COMPLEX #1 ea coenzyme Q10 100 mg tablet 100 mg PO DAILY #90 tabs 11/26/22 amlodipine 10 mg tablet (Norvasc) 10 mg PO DAILY #30 tabs 11/29/22 tiotropium 2.5 mcg-olodaterol 2.5 2 puff inhalation DAILY 30 days #4 12/07/22 mcg/actuation mist for inhalation grams (Stiolto Respimat) hydrochlorothiazide 12.5 mg tablet 12.5 mg PO DAILY #30 tabs 12/25/22 ibuprofen 600 mg tablet 600 mg PO Q8H PRN pain #30 tabs 12/25/22 lidocaine 5 % topical patch 1 patch topical DAILY #15 ea 12/25/22 (Lidoderm) prednisone 20 mg tablet 40 mg PO DAILY #10 tabs 12/25/22 ketorolac 10 mg tablet 10 mg PO TID PRN pain 5 days #15 12/29/22 tabs lidocaine 5 % topical patch 1 patch topical DAILY PRN pain #15 12/29/22 ea <DARYL Munoz - Last Filed: 12/28/22 19:45> Allergies/Adverse Reactions: Allergies Allergy/AdvReac Type Severity Reaction Status Date / Time lisinopril AdvReac Cough Verified 12/25/22 11:16 <DARYL Munoz - Last Filed: 12/28/22 19:45> Review of Systems Review of Systems: Constitutional : No Weight loss, No Fever, No Chills, No Fatigue, No Malaise ENT/Mouth : No sore throat, No Rhinorrhea Eyes: No Eye Pain, No Swelling, No Redness Cardiovascular : No Chest Pain, + SOB, No Dyspnea on Exertion, No Orthopnea, No Edema, No Palpitations Respiratory : No Cough, No Sputum, No Wheezing Gastrointestinal : No Nausea, No Vomiting, No Diarrhea, No Constipation, No abdominal Pain, No Hematochezia, No Melena Genitourinary : No Dysuria, No Urinary Frequency, No Hematuria, Musculoskeletal : No joint pain, No Myalgias, No Joint Swelling, + rib pain Skin : No Skin Lesions, No rash Neuro : No Weakness, No Numbness, No Dizziness, No Headache Psych : No Anxiety/Panic, No Depression All other systems reviewed and are negative <DARYL Wen - Last Filed: 12/29/22 01:39> Yes all other systems are reviewed and are negative <DARYL Wen - Last Filed: 12/29/22 01:39> [facility] Past Medical History Attestation statement: The following information was validated with the patient. <DARYL Wen - Last Filed: 12/29/22 01:39> Source: old records reviewed and nursing notes reviewed <DARYL Wen - Last Filed: 12/29/22 01:39> Medical History: Medical History Asthma <DARYL Munoz - Last Filed: 12/28/22 19:45> Surgical History: Surgical History History of surgery on arm Hx of cholecystectomy <DARYL Munoz - Last Filed: 12/28/22 19:45> Social History Social History: Social History Household Members: Family Housing: House Alcohol intake: former Patient Tobacco Use Status: Former Tobacco user e-Cigarette/Vaping Use: Never Used Second Hand Smoke Exposure: No Advance Directives: No Advance Directives Information Provided: No service: No Current occupational status: employed Current occupation: works nights Current occupational exposures/hazards: No <DARYL Munoz - Last Filed: 12/28/22 19:45> Physical Exam Vital Signs: Vital Signs: Last Vital Signs Temp 97.9 F 12/28/22 21:51 Pulse 81 12/29/22 01:22 Resp 14 12/29/22 01:22 BP 125/80 12/29/22 01:22 Pulse Ox 95 12/29/22 01:22 O2 Del Method Room Air 12/29/22 01:22 BMI result Body Mass Index 44.2 <DARYL Munoz - Last Filed: 12/28/22 19:45> Vital Signs: Last Vital Signs Temp 97.9 F 12/28/22 21:51 Pulse 81 12/29/22 01:22 Resp 14 12/29/22 01:22 BP 125/80 12/29/22 01:22 Pulse Ox 95 12/29/22 01:22 O2 Del Method Room Air 12/29/22 01:22 BMI result Body Mass Index 44.2 vss <DARYL Wen - Last Filed: 12/29/22 01:39> Appearance: Alert.? Oriented X3.? No acute distress.? Head: Normocephalic, atraumatic, no step-offs or deformities Eyes: Pupils equal, round and reactive to light.? ENT: Pharynx normal.? Neck: Normal inspection.? Neck supple.? CVS: Normal heart rate and rhythm.? Pulses normal.? Respiratory: No respiratory distress.? Breath sounds normal.?+ point tenderness to right-sided later aspect ribs 5 through 7. No overlying skin changes. No signs of flail chest. Abdomen: Soft and nontender.? Skin: Skin warm and dry.? Normal skin color.? Normal skin turgor.? Extremities: No lower extremity edema.? No calf ttp. 5/5 strength to bilateral upper and lower extremities Neuro: Oriented X 3.? No motor deficit.? No sensory deficit. CN 2-12 intact <DARYL Wen - Last Filed: 12/29/22 01:39> Course Course Course Narrative: RME--52-year-old Italian-speaking male, with past medical history of asthma and HTN c/o right sided rib pain s/p sneezing today. Patient concern for broken rib. Patient was recently seen and treated in our ED on 12/25 for asthma exacerbation. Denies known injury/trauma or fall. Denies SOB Patient hypertensive in triage. Right sided anterior lateral rib tenderness elicited. No flail chest. No ecchymosis erythema. Lungs CTA Rib series ordered <DARYL Munoz - Last Filed: 12/28/22 19:45> Reevaluation(s) Reevaluation #1: CBC with slightly elevated white blood cell count however likely reactive, unlikely from infection. Chemistry with no acute electrolyte abnormalities requiring intervention. CT with limited exam. No gross evidence of central pulmonary vascular emboli. Healing comminuted fracture of the left posterior lateral 9th rib. No other rib fractures noted. This is likely musculoskeletal pain as it is precipitated by palpation and movement better at rest. Will discharge home with Toradol, Lidoderm patches. Educated patient on diagnosis and treatment plan, answered all question, patient verbalizes understanding. At this time patient will be discharged home, advised to return with new or worsening symptoms. Educated on worrisome signs and symptoms and when to return. At this time I feel comfortable discharge home. <DARYL Wen - Last Filed: 12/29/22 01:39> Time: 00:46 <DARYL Wen - Last Filed: 12/29/22 01:39> Reevaluation #2: EKG with normal sinus rhythm no ST elevations or inversions concerning for ischemia. Troponin pending however I do not suspect cardiac etiology. blood pressures have been elevated however upon chart review this appears to be around his baseline. Now patients BP improved wnl, advised to monitor BP at home. No symptoms of hypertension. <DARYL Wen - Last Filed: 12/29/22 01:39> Time: 01:38 <DARYL Wen - Last Filed: 12/29/22 01:39> Medications Administered Discontinued Medications Generic Name Dose Route Start Last Admin Trade Name Freq PRN Reason Stop Dose Admin Iohexol 65 ml 12/29/22 00:17 12/29/22 00:18 Iohexol 350 Mg/Ml 100 Ml Infus..Btl IV 12/29/22 00:18 65 ml ONCE ONE Administration Ketorolac Tromethamine 30 mg 12/29/22 00:47 12/29/22 01:23 Ketorolac Tromethamine 15 Mg/Ml Vial IVPUSH 12/29/22 00:48 30 mg ONCE ONE Administration Lidocaine 1 patch 12/28/22 23:02 12/28/22 23:35 Lidocaine 4 % Patch Adh..Patch TRANSDERMA 12/28/22 23:03 1 patch ONCE ONE Administration Protocol Morphine Sulfate 4 mg 12/28/22 23:02 12/28/22 23:36 Morphine Sulfate 4 Mg/Ml Cartridge IVPUSH 12/28/22 23:03 4 mg ONCE ONE Administration Protocol <DARYL Munoz - Last Filed: 12/28/22 19:45> Medications Administered Discontinued Medications Generic Name Dose Route Start Last Admin Trade Name [place] PRN Reason Stop Dose Admin Iohexol 65 ml 12/29/22 00:17 12/29/22 00:18 Iohexol 350 Mg/Ml 100 Ml Infus..Btl IV 12/29/22 00:18 65 ml ONCE ONE Administration Ketorolac Tromethamine 30 mg 12/29/22 00:47 12/29/22 01:23 Ketorolac Tromethamine 15 Mg/Ml Vial IVPUSH 12/29/22 00:48 30 mg ONCE ONE Administration Lidocaine 1 patch 12/28/22 23:02 12/28/22 23:35 Lidocaine 4 % Patch Adh..Patch TRANSDERMA 12/28/22 23:03 1 patch ONCE ONE Administration Protocol Morphine Sulfate 4 mg 12/28/22 23:02 12/28/22 23:36 Morphine Sulfate 4 Mg/Ml Cartridge IVPUSH 12/28/22 23:03 4 mg ONCE ONE Administration Protocol <DARYL Wen - Last Filed: 12/29/22 01:39> Medical Decision Making Medical Decision Making [facility] Narrative: 2313 52-year-old male presents for evaluation of right-sided rib pain status post coughing, has been going on 5 days. Reports history of rib fractures in this feels similar. Reports sharp pain. Physical exam significant for point tenderness to right-sided lateral aspect ribs 5 through 7. No overlying skin changes. No signs of flail chest. Concerns for rib fracture. Will rule out PE. Other differentials include musculoskeletal pain. Unlikely pneumothorax or pneumonia. No CP unlikley acs. lungs clear unlikley pna, asa Plan CTA, basic labs, morphine and Lidoderm patch. <DARYL Wen - Last Filed: 12/29/22 01:39> Differential Diagnosis Differential Diagnoses: The differential diagnosis associated with the presentation includes <DARYL Wen - Last Filed: 12/29/22 01:39> Concerns for rib fracture. Will rule out PE. Other differentials include musculoskeletal pain. Unlikely pneumothorax or pneumonia. No CP unlikley acs. lungs clear unlikley pna, asa <DARYL Wen - Last Filed: 12/29/22 01:39> Admission/Observation Consideration of admission/observation: Escalation of care including admission/observation considered <DARYL Wen - Last Filed: 12/29/22 01:39> Lab Data MDM Lab Attestation statement: I reviewed the patient's lab results. <DARYL Wen - Last Filed: 12/29/22 01:39> Result Diagrams: 12/28/22 23:33 12/28/22 23:33 <DARYL Munoz - Last Filed: 12/28/22 19:45> Labs: Lab Results 12/28/22 12/28/22 12/29/22 Range/Units 23:33 23:33 00:55 WBC 14.9 H (4.8-10.8) X10*3/uL RBC 5.43 (4.60-5.80) X10*6/uL Hgb 13.9 L (14.0-18.0) g/dl Hct 41.9 L (42.0-52.0) % MCV 77.2 L (80.0-98.0) fL MCH 25.6 L (27.0-33.0) pg MCHC 33.2 (31.0-36.0) g/dl RDW 14.6 (11.0-16.0) % Plt Count 401 H (160-400) X10*3/uL MPV 9.0 L (9.4-12.4) fL Immature Gran % (Auto) 0.6 H (0.0-0.4) % Neut % (Auto) 74.9 H (45-73) % Lymph % (Auto) 16.7 L (20-40) % Park % (Auto) 7.7 (2-11) % Eos % (Auto) 0.0 (0-4) % Baso % (Auto) 0.1 (0-2) % Lymph # (Auto) 2.5 (1.2-4.9) X10*3/uL Park # (Auto) 1.1 (0.1-1.2) X10*3/uL Eos # (Auto) 0.0 (0.0-0.4) X10*3/uL Baso # (Auto) 0.0 (0.0-0.2) X10*3/uL Abs Immat Gran (auto) 0.09 H (0.00-0.03) X10*3/uL Absolute Neuts (auto) 11.1 H (2.0-8.3) x10*3/uL Absolute Nucleated RBC 0.000 (0.0-0.012) X10*3/uL Nucleated RBC % (auto) 0.0 (0.0-0.2) /100WBC Sodium 141 (135-145) mmol/L Potassium 3.8 (3.3-5.1) mmol/L Chloride 105 (96-108) mmol/L Carbon Dioxide 26 (22-29) mmol/L Anion Gap 14 (12-20) BUN 24 H (9-16) mg/dL Creatinine 1.01 (0.5-1.4) mg/dL Estim Creat Clear Calc 97.2 Estimated GFR > 60 Random Glucose 119 H (60-115) mg/dL Calcium 9.5 (8.4-10.2) mg/dL Total Bilirubin 0.3 (0.0-1.0) mg/dL AST 17 (5-37) U/L ALT 22 (0-40) U/L Alkaline Phosphatase 82 (39-117) U/L Troponin I High Sens < 3.5 (<3.5-35.0) ng/L Total Protein 7.4 (6.5-8.0) g/dL Albumin 4.6 (3.5-5.0) g/dL <DARYL Munoz - Last Filed: 12/28/22 19:45> Lab Results 12/28/22 12/28/22 12/29/22 Range/Units 23:33 23:33 00:55 WBC 14.9 H (4.8-10.8) X10*3/uL RBC 5.43 (4.60-5.80) X10*6/uL Hgb 13.9 L (14.0-18.0) g/dl Hct 41.9 L (42.0-52.0) % MCV 77.2 L (80.0-98.0) fL MCH 25.6 L (27.0-33.0) pg MCHC 33.2 (31.0-36.0) g/dl RDW 14.6 (11.0-16.0) % Plt Count 401 H (160-400) X10*3/uL MPV 9.0 L (9.4-12.4) fL Immature Gran % (Auto) 0.6 H (0.0-0.4) % Neut % (Auto) 74.9 H (45-73) % Lymph % (Auto) 16.7 L (20-40) % Park % (Auto) 7.7 (2-11) % Eos % (Auto) 0.0 (0-4) % Baso % (Auto) 0.1 (0-2) % Lymph # (Auto) 2.5 (1.2-4.9) X10*3/uL Park # (Auto) 1.1 (0.1-1.2) X10*3/uL Eos # (Auto) 0.0 (0.0-0.4) X10*3/uL Baso # (Auto) 0.0 (0.0-0.2) X10*3/uL Abs Immat Gran (auto) 0.09 H (0.00-0.03) X10*3/uL Absolute Neuts (auto) 11.1 H (2.0-8.3) x10*3/uL Absolute Nucleated RBC 0.000 (0.0-0.012) X10*3/uL Nucleated RBC % (auto) 0.0 (0.0-0.2) /100WBC Sodium 141 (135-145) mmol/L Potassium 3.8 (3.3-5.1) mmol/L Chloride 105 (96-108) mmol/L Carbon Dioxide 26 (22-29) mmol/L Anion Gap 14 (12-20) BUN 24 H (9-16) mg/dL Creatinine 1.01 (0.5-1.4) mg/dL Estim Creat Clear Calc 97.2 Estimated GFR > 60 Random Glucose 119 H (60-115) mg/dL Calcium 9.5 (8.4-10.2) mg/dL Total Bilirubin 0.3 (0.0-1.0) mg/dL AST 17 (5-37) U/L ALT 22 (0-40) U/L Alkaline Phosphatase 82 (39-117) U/L Troponin I High Sens < 3.5 (<3.5-35.0) ng/L Total Protein 7.4 (6.5-8.0) g/dL Albumin 4.6 (3.5-5.0) g/dL <DARYL Wen - Last Filed: 12/29/22 01:39> Independent Interpretation I performed an independent interpretation of an: CT Scan <DARYL Wen - Last Filed: 12/29/22 01:39> Radiology Impression Discussion of test interpretation with radiology: I have reviewed the radiologist's reading. <DARYL Wen - Last Filed: 12/29/22 01:39> Core Measures AMI core measures followed: Yes <DARYL Wen - Last Filed: 12/29/22 01:39> Measure exclusions: not indicated <DARYL Wen - Last Filed: 12/29/22 01:39> Critical Care Time Critical Care Time Critical Care Time: No <DARYL Wen - Last Filed: 12/29/22 01:39> Discharge Plan Discharge Clinical Impression: Rib pain on right side, Elevated blood pressure reading <DARYL Munoz - Last Filed: 12/28/22 19:45> Patient Disposition: Home, Self-Care <DARYL Munoz - Last Filed: 12/28/22 19:45> Instructions: Chest Pain (DC) <DARYL Munoz Last Filed: 12/28/22 19:45> Additional Instructions: Take your medications as prescribed. If you were prescribed antibiotics today, it is important that you take your medication to their entirety, do not skip any doses, do not finish them early. Follow-up with your primary care provider this week. Return to the emergency department with new or worsening symptoms. Such as fevers, chills, chest pain, shortness of breath, nausea, vomiting, dizziness, headache, vision changes, lethargy In case of emergency call 911 Toradol has been sent to your pharmacy, you tolerated this well in the department. Please take this as prescribed do not take this with ibuprofen, or other NSAIDs, do not mix this with alcohol. Side effects of this medication including increased risk for bleeding and possible kidney injury. Please check your blood pressure Saturday, Saturday, Saturday, rated 10 in short with your primary care provider. CT/CT angio chest PE protocol IMPRESSION: 1. Limited exam. No gross evidence of central pulmonary vascular emboli. 2. Healing comminuted fracture of the left posterior lateral ninth rib. 3. VTE: negative <DARYL Munoz - Last Filed: 12/28/22 19:45> Prescriptions: New ketorolac 10 mg tablet 10 mg PO TID PRN (Reason: pain) 5 Days Qty: 15 0RF lidocaine 5 % adhesive patch,medicated 1 patch topical DAILY PRN (Reason: pain) Qty: 15 0RF Rx Instructions: leave on most painful area for up to 12 hrs No Action atorvastatin 40 mg tablet 40 mg PO BEDTIME Qty: 90 3RF coenzyme Q10 100 mg tablet 100 mg PO DAILY Qty: 90 3RF Stiolto Respimat 2.5-2.5 mcg/actuation mist 2 puff inhalation DAILY 30 Days Qty: 4 6RF albuterol sulfate [ProAir HFA] 90 mcg/actuation HFA aerosol inhaler 2 puff inhalation Q4-6H PRN (Reason: shortness of breath or wheezing) Qty: 8.5 0RF hydrochlorothiazide 12.5 mg tablet 12.5 mg PO DAILY Qty: 30 0RF prednisone 20 mg tablet 40 mg PO DAILY Qty: 10 0RF lidocaine [Lidoderm] 5 % adhesive patch,medicated 1 patch topical DAILY Qty: 15 0RF Rx Instructions: leave on most painful area for up to 12 hrs ibuprofen 600 mg tablet 600 mg PO Q8H PRN (Reason: pain) Qty: 30 0RF albuterol sulfate 1.25 mg/3 mL solution for nebulization 1.25 mg inhalation Q4H 30 Days Qty: 540 5RF cephalexin 750 mg capsule 750 mg PO BID Qty: 20 0RF (DME) blood pressure kit-extra large Kit See Rx Instructions .Route Qty: 1 0RF Rx Instructions: As directed miscellaneous medical supply Misc See Rx Instructions miscellaneous .COMPLEX Qty: 1 0RF Rx Instructions: air purifier for personal use as directed; amlodipine [Norvasc] 10 mg tablet 10 mg PO DAILY Qty: 30 1RF pantoprazole 40 mg tablet,delayed release (DR/EC) 40 mg PO DAILY 30 Days Qty: 30 11RF docusate sodium [Colace] 100 mg capsule 200 mg PO BEDTIME Qty: 60 5RF polyethylene glycol 3350 [Miralax] 17 gram/dose powder 17 g PO DAILY Qty: 510 6RF Citrucel 500 mg tablet 500 mg PO BID Qty: 60 5RF <DARYL Munoz - Last Filed: 12/28/22 19:45> Referrals: María Hubbard, [employer] [Primary Care Provider] - 2 days <DARYL Munoz - Last Filed: 12/28/22 19:45> Stand Alone Forms: Work/School Release <DARYL Munoz - Last Filed: 12/28/22 19:45>
[2022-12-28 21:51] VITALS: BP 151/103; PULSE 100; RESP 18; TEMP 36.6; O2SAT 96
[2022-12-28] MEDS: Lidocaine 4 % Patch ADH..PATCH 1 PATCH TRANSDERMA (23:35)
[2022-12-28] MEDS: Morphine Sulfate 4 MG/ML CARTRIDGE IVPUSH (23:36)
--- NOTE | 2022-12-28 23:41 | PC.NURSE ---
Pt aox3 sitting at the bedside in no apparent distress. IV line started with 20 G on the R AC. Pt tolerated well. Pt medicated as ordered and aware of plan of care.
[2022-12-28 23:44] LABS: MANUAL DIFF FLAG NO
[2022-12-28 23:45] LABS: Basophils Percent Auto 0.1 % (0-2); Hematocrit 41.9 % (42.0-52.0); Hemoglobin 13.9 g/dl (14.0-18.0); Imm Gran Abs Auto 0.09 X10*3/uL (0.00-0.03); Imm Gran Pct Auto 0.6 % (0.0-0.4); Lymphocytes Absolute Auto 2.5 X10*3/uL (1.2-4.9); Lymphocytes Percent Auto 16.7 % (20-40); Mean Corpuscular HGB Conc 33.2 g/dl (31.0-36.0); Mean Corpuscular Hemoglobin 25.6 pg (27.0-33.0); Mean Corpuscular Volume 77.2 fL (80.0-98.0); Monocytes Absolute Auto 1.1 X10*3/uL (0.1-1.2); Monocytes Percent Auto 7.7 % (2-11); Neutrophils Absolute Auto 11.1 x10*3/uL (2.0-8.3); Neutrophils Percent Auto 74.9 % (45-73); Platelet Count 401 X10*3/uL (160-400); Red Blood Count 5.43 X10*6/uL (4.60-5.80); Red Cell Distribution Width 14.6 % (11.0-16.0); White Blood Count 14.9 X10*3/uL (4.8-10.8)
[2022-12-29 00:02] LABS: Alanine Aminotransferase 22 U/L (0-40); Albumin Level 4.6 g/dL (3.5-5.0); Alkaline Phosphatase 82 U/L (39-117); Anion Gap 14 (12-20); Aspartate Amino Transferase 17 U/L (5-37); Bilirubin Total 0.3 mg/dL (0.0-1.0); Blood Urea Nitrogen 24 mg/dL (9-16); Calcium 9.5 mg/dL (8.4-10.2); Carbon Dioxide 26 mmol/L (22-29); Chloride 105 mmol/L (96-108); Creatinine Clr Calc Pharmacy 97.2; Estimated Glomerular Filt Rate > 60; Glucose Random 119 mg/dL (60-115); Potassium 3.8 mmol/L (3.3-5.1); Sodium 141 mmol/L (135-145); Total Protein 7.4 g/dL (6.5-8.0)
[2022-12-29] MEDS: iohexoL 350 MG/ML 100 ML INFUS..BTL 65 ML IV (00:18)
--- NOTE | 2022-12-29 00:49 | ECG_ITS ---
Test Reason : sob Blood Pressure : / mmHG Vent. Rate : 083 BPM Atrial Rate : 083 BPM P-R Int : 184 ms QRS Dur : 070 ms QT Int : 380 ms P-R-T Axes : 042 007 078 degrees QTc Int : 446 ms Normal sinus rhythm Nonspecific T wave abnormality Abnormal ECG When compared with ECG of 25-DEC-2022 11:21, No significant change was found Referred By: [facility] Electronically Signed By:PETERSON STEPHENS MD
[2022-12-29 01:22] VITALS: BP 125/80; PULSE 81; RESP 14; O2SAT 95
[2022-12-29] MEDS: Ketorolac Tromethamine 15 MG/ML VIAL 30 MG IVPUSH (01:23)
[2022-12-29 01:36] LABS: Troponin-I High Sensitivity < 3.5 ng/L (<3.5-35.0)
--- NOTE | 2022-12-29 01:50 | PC.NURSE ---
IV line removed. Pt tolerated well. Discharge instructions reviewed with pt. Pt verbalizes understanding.
== END 2022-12-29 01:51 | disposition home or self-care (01) ==
PROVIDERS: Physician Assistant; Emergency Provider Emergency Medicine; PCP Hospitalist
DX: M94.0 Chondrocostal junction syndrome [Tietze] (principal); R06.02 Shortness of breath; R05.9 Cough, unspecified; I10 Essential (primary) hypertension; Z79.899 Other long term (current) drug therapy
CPT/HCPCS: 36415; 71101; 71275; 80053; 84484; 85025; 93005; 96374; 96375; 99284; J1885; J2270; Q9967

== ENCOUNTER 2022-12-29 16:00 | Emergency (ER) | payer OTHER, SELFPAY ==
[2022-12-29 16:10] VITALS: BP 170/103; PULSE 97; RESP 20; TEMP 36.6; O2SAT 96; BMI 40.7
--- NOTE | 2022-12-29 17:17 | ED.GENADULT ---
HPI - General Adult General Chief complaint: General Medical Stated complaint: med refill Time Seen by Provider: 12/29/22 17:19 History of Present Illness HPI narrative: Patient complains of left rib pain for several days after a coughing spell, he was here yesterday and diagnosed with a healing left rib fracture, he was given prescription for Toradol which is not helping, he is use Motrin and Tylenol they do not help and lidocaine patch does not help No shortness of breath the only pain is described as left rib pain with deep breath and movement Related Data Previous Rx's Medication Instructions Recorded pantoprazole 40 mg tablet,delayed 40 mg PO DAILY 30 days #30 tabs 07/17/22 release albuterol sulfate 1.25 mg/3 mL 1.25 mg (3 mL) inhalation Q4H 1 09/06/22 solution for nebulization month #540 mL docusate sodium 100 mg capsule 200 mg PO BEDTIME #60 caps 09/11/22 (Colace) methylcellulose (laxative) 500 mg 500 mg PO BID #60 tabs 09/11/22 tablet (Citrucel) polyethylene glycol 3350 17 17 g PO DAILY #510 grams 09/11/22 gram/dose oral powder (Miralax) albuterol sulfate 90 mcg/actuation 2 puff inhalation Q4-6H PRN 10/14/22 aerosol inhaler (ProAir HFA) shortness of breath or wheezing #8.5 grams atorvastatin 40 mg tablet 40 mg PO BEDTIME #90 tabs 11/20/22 blood pressure kit-extra large #1 ea 11/20/22 cephalexin 750 mg capsule 750 mg PO BID #20 caps 11/20/22 miscellaneous medical supply See Rx Instructions miscellaneous 11/20/22 .COMPLEX #1 ea coenzyme Q10 100 mg tablet 100 mg PO DAILY #90 tabs 11/26/22 amlodipine 10 mg tablet (Norvasc) 10 mg PO DAILY #30 tabs 11/29/22 tiotropium 2.5 mcg-olodaterol 2.5 2 puff inhalation DAILY 30 days #4 12/07/22 mcg/actuation mist for inhalation grams (Stiolto Respimat) hydrochlorothiazide 12.5 mg tablet 12.5 mg PO DAILY #30 tabs 12/25/22 ibuprofen 600 mg tablet 600 mg PO Q8H PRN pain #30 tabs 12/25/22 lidocaine 5 % topical patch 1 patch topical DAILY #15 ea 12/25/22 (Lidoderm) prednisone 20 mg tablet 40 mg PO DAILY #10 tabs 12/25/22 ibuprofen 600 mg tablet 600 mg PO Q8H PRN pain #20 tabs 12/29/22 ketorolac 10 mg tablet 10 mg PO TID PRN pain 5 days #15 12/29/22 tabs lidocaine 5 % topical patch 1 patch topical DAILY PRN pain #15 12/29/22 ea oxycodone 5 mg tablet 5 mg PO Q6H PRN pain #14 tabs 12/29/22 Allergies Allergy/AdvReac Type Severity Reaction Status Date / Time lisinopril AdvReac Cough Verified 12/25/22 11:16 [facility] Past Medical History Source: nursing notes reviewed Medical History Asthma Surgical History History of surgery on arm Hx of cholecystectomy Social History Social History Household Members: Family Housing: House Alcohol intake: former Patient Tobacco Use Status: Former Tobacco user e-Cigarette/Vaping Use: Never Used Second Hand Smoke Exposure: No Advance Directives: No Advance Directives Information Provided: No service: No Current occupational status: employed Current occupation: works nights Current occupational exposures/hazards: No Physical Exam ED Vital Signs: Vital Signs - 24 hr 12/29/22 16:10 Temperature 97.9 F Pulse Rate 97 Respiratory Rate 20 Blood Pressure 170/103 H Pulse Oximetry 96 Oxygen Delivery Method Room Air BMI result Body Mass Index 40.7 General appearance no acute distress, breathing easily speaking full sentences Head is normocephalic atraumatic Neck is supple Respiratory no distress Breath sounds are clear to auscultation bilateral full symmetric breath sounds Heart no murmur Chest wall there is right anterior lateral lower rib tenderness reproducible with deep breath and movement, skin of the chest wall is normal no rash no bruising Abdomen is soft and non tender Extremities full range of motion x4 Neuro no focal motor or sensory deficits, interaction comprehension and expression are normal, gait and balance are normal Course Course Course Narrative: CT done yesterday ruled out pulmonary embolus but did show a healing left posterior 9th rib fracture, patient said the medications prescribed have not helped and he is having a lot of pain [employer] he is not of frequent user of narcotics and he is given a prescription for oxycodone and ambulated comfortably from the ER Medications Administered Discontinued Medications Generic Name Dose Route Start Last Admin Trade Name Freq PRN Reason Stop Dose Admin Oxycodone HCl 5 mg 12/29/22 17:39 12/29/22 17:43 Oxycodone Hcl Immed Release 5 Mg Tablet PO 12/29/22 17:40 5 mg ONCE ONE Administration Discharge Plan Discharge Clinical Impression: Rib pain, Elevated blood pressure reading Patient Disposition: Home, Self-Care Additional Instructions: Use Tylenol and Motrin that you have at home as needed, in addition if needed you can use the narcotic oxycodone for pain Follow with her doctor Return any time for difficulty breathing any worse condition or any concerns Prescriptions: New oxycodone 5 mg tablet 5 mg PO Q6H PRN (Reason: pain) Qty: 14 0RF Rx Instructions: Partial Fill upon patient request. No Action atorvastatin 40 mg tablet 40 mg PO BEDTIME Qty: 90 3RF coenzyme Q10 100 mg tablet 100 mg PO DAILY Qty: 90 3RF Stiolto Respimat 2.5-2.5 mcg/actuation mist 2 puff inhalation DAILY 30 Days Qty: 4 6RF albuterol sulfate [ProAir HFA] 90 mcg/actuation HFA aerosol inhaler 2 puff inhalation Q4-6H PRN (Reason: shortness of breath or wheezing) Qty: 8.5 0RF hydrochlorothiazide 12.5 mg tablet 12.5 mg PO DAILY Qty: 30 0RF prednisone 20 mg tablet 40 mg PO DAILY Qty: 10 0RF lidocaine [Lidoderm] 5 % adhesive patch,medicated 1 patch topical DAILY Qty: 15 0RF Rx Instructions: leave on most painful area for up to 12 hrs ibuprofen 600 mg tablet 600 mg PO Q8H PRN (Reason: pain) Qty: 30 0RF ketorolac 10 mg tablet 10 mg PO TID PRN (Reason: pain) 5 Days Qty: 15 0RF lidocaine 5 % adhesive patch,medicated 1 patch topical DAILY PRN (Reason: pain) Qty: 15 0RF Rx Instructions: leave on most painful area for up to 12 hrs ibuprofen 600 mg tablet 600 mg PO Q8H PRN (Reason: pain) Qty: 20 0RF albuterol sulfate 1.25 mg/3 mL solution for nebulization 1.25 mg inhalation Q4H 30 Days Qty: 540 5RF cephalexin 750 mg capsule 750 mg PO BID Qty: 20 0RF (DME) blood pressure kit-extra large Kit See Rx Instructions .Route Qty: 1 0RF Rx Instructions: As directed miscellaneous medical supply Misc See Rx Instructions miscellaneous .COMPLEX Qty: 1 0RF Rx Instructions: air purifier for personal use as directed; amlodipine [Norvasc] 10 mg tablet 10 mg PO DAILY Qty: 30 1RF pantoprazole 40 mg tablet,delayed release (DR/EC) 40 mg PO DAILY 30 Days Qty: 30 11RF docusate sodium [Colace] 100 mg capsule 200 mg PO BEDTIME Qty: 60 5RF polyethylene glycol 3350 [Miralax] 17 gram/dose powder 17 g PO DAILY Qty: 510 6RF Citrucel 500 mg tablet 500 mg PO BID Qty: 60 5RF Interventions: ED Discharge Assessment Last Done: 12/29/22 17:47 Discharge Date/Time: 12/29/22 17:47
[2022-12-29] MEDS: oxyCODONE HCl Immed Release 5 MG TABLET PO (17:43)
== END 2022-12-29 17:47 | disposition home or self-care (01) ==
PROVIDERS: Emergency Provider Emergency Medicine; PCP Hospitalist
DX: R07.81 Pleurodynia (principal); I10 Essential (primary) hypertension; E78.00 Pure hypercholesterolemia, unspecified; Z79.02 Long term (current) use of antithrombotics/antiplatelets; Z79.899 Other long term (current) drug therapy
CPT/HCPCS: 99283

== ENCOUNTER 2023-01-09 09:30 | Emergency (ER) | payer OTHER, SELFPAY ==
--- NOTE | ~2023-01-09 | CT_ITS ---
EXAMINATION: CT ABDOMEN AND PELVIS WITHOUT CONTRAST CLINICAL INFORMATION: Right lower quadrant and CVA pain COMPARISON: CT chest 12/29/2022 as well as older study TECHNIQUE: Multidetector volumetric imaging was performed from the superior aspect of the liver through the pubic symphysis. Sagittal and coronal reformatted images were obtained on the technologist's workstation. This CT examination was performed using dose optimization techniques as appropriate, variously including the following: *Automated exposure control *Adjustment of mA and/or kV according to patient size (this includes techniques or standardized protocols for targeted exams where dose is matched to indication/reason for exam; i.e. extremities or head) *Use of iterative reconstruction technique DLP: 879 mGy-cm FINDINGS: LUNG BASES: The visualized lung bases are unremarkable. Bibasilar atelectasis is present. LIVER, GALLBLADDER, AND BILIARY TREE: The liver is normal in size and shape but demonstrates decreased attenuation consistent with hepatic steatosis. No focal hepatic lesion or biliary ductal dilatation is present. The gallbladder is unremarkable with no evidence of radiopaque gallstones, gallbladder wall thickening, or obvious pericholecystic inflammatory changes. PANCREAS: Unremarkable. SPLEEN: Unremarkable. ADRENAL GLANDS: Unremarkable. KIDNEYS AND URETERS: The kidneys are normal in size, shape, and attenuation. Bilateral Bosniak class I renal cysts are present which need no additional imaging or follow-up. No solid renal masses. No hydronephrosis, hydroureter, or calculi seen. No perinephric stranding. BLADDER: Unremarkable. GASTROINTESTINAL TRACT: The small and large bowel are unremarkable aside from a few scattered colonic diverticula without diverticulitis. The appendix is unremarkable. ABDOMINAL WALL: No significant hernia is appreciated. LYMPH NODES: No retroperitoneal lymphadenopathy. VASCULAR: Unremarkable. PELVIC VISCERA: The prostate and seminal vesicles are unremarkable. OSSEOUS STRUCTURES: There is an new acute minimally displaced rib fracture of the right eighth posterolateral rib which was not present at the time of the prior CT. CT/CT abdomen pelvis wo IV con IMPRESSION: 1. Acute minimally displaced right eighth posterolateral rib fracture. This may very well be the cause of the patient's right CVA tenderness. 2. Hepatic steatosis. 3. Other incidental findings as described above. Fleischner guidelines were followed.
[2023-01-09 09:44] VITALS: BP 143/100; PULSE 81; RESP 18; TEMP 36.8; O2SAT 98; BMI 35.7
[2023-01-09 10:24] LABS: MANUAL DIFF FLAG NO
[2023-01-09 10:27] LABS: Appearance Urine Clear; Color Urine Yellow; Glucose Urine UA Negative (Negative); Leukocyte Esterase Urine Negative (Negative); Nitrite Urine Negative (Negative); PH 5.5 (5.0-9.0); Urine Blood Negative (Negative); Urine Ketones Negative (Negative); Urine Protein Negative (Neg-Trace)
[2023-01-09 10:28] LABS: Basophils Percent Auto 0.5 % (0-2); Eosinophils Absolute Auto 0.3 X10*3/uL (0.0-0.4); Hematocrit 43.6 % (42.0-52.0); Hemoglobin 14.1 g/dl (14.0-18.0); Imm Gran Pct Auto 1.3 % (0.0-0.4); Lymphocytes Absolute Auto 2.3 X10*3/uL (1.2-4.9); Lymphocytes Percent Auto 28.4 % (20-40); Mean Corpuscular HGB Conc 32.3 g/dl (31.0-36.0); Mean Corpuscular Hemoglobin 25.7 pg (27.0-33.0); Mean Corpuscular Volume 79.6 fL (80.0-98.0); Mean Platelet Volume 9.5 fL (9.4-12.4); Monocytes Absolute Auto 0.6 X10*3/uL (0.1-1.2); Monocytes Percent Auto 8.1 % (2-11); Neutrophils Absolute Auto 4.6 x10*3/uL (2.0-8.3); Neutrophils Percent Auto 57.7 % (45-73); Platelet Count 318 X10*3/uL (160-400); Red Blood Count 5.48 X10*6/uL (4.60-5.80); Red Cell Distribution Width 14.6 % (11.0-16.0); White Blood Count 7.9 X10*3/uL (4.8-10.8)
--- NOTE | 2023-01-09 10:45 | ED.GENADULT ---
HPI - General Adult General Chief complaint: General Medical Stated complaint: R side abd pain/ lower back pain Time Seen by Provider: 01/09/23 10:33 Source: patient Mode of arrival: ambulatory History of Present Illness HPI narrative: 52-year-old male with past medical history of asthma presenting to the ED complaining of RLQ abdominal pain radiating to right flank x 1 week with associated dysuria. Also reports constipation, took OTC medications with some relief. Denies nausea, vomiting, hematuria, testicular pain Onset (ago): week(s) Related Data Previous Rx's Medication Instructions Recorded pantoprazole 40 mg tablet,delayed 40 mg PO DAILY 30 days #30 tabs 07/17/22 release albuterol sulfate 1.25 mg/3 mL 1.25 mg (3 mL) inhalation Q4H 1 09/06/22 solution for nebulization month #540 mL docusate sodium 100 mg capsule 200 mg PO BEDTIME #60 caps 09/11/22 (Colace) methylcellulose (laxative) 500 mg 500 mg PO BID #60 tabs 09/11/22 tablet (Citrucel) polyethylene glycol 3350 17 17 g PO DAILY #510 grams 09/11/22 gram/dose oral powder (Miralax) albuterol sulfate 90 mcg/actuation 2 puff inhalation Q4-6H PRN 10/14/22 aerosol inhaler (ProAir HFA) shortness of breath or wheezing #8.5 grams atorvastatin 40 mg tablet 40 mg PO BEDTIME #90 tabs 11/20/22 blood pressure kit-extra large #1 ea 11/20/22 cephalexin 750 mg capsule 750 mg PO BID #20 caps 11/20/22 miscellaneous medical supply See Rx Instructions miscellaneous 11/20/22 .COMPLEX #1 ea coenzyme Q10 100 mg tablet 100 mg PO DAILY #90 tabs 11/26/22 amlodipine 10 mg tablet (Norvasc) 10 mg PO DAILY #30 tabs 11/29/22 tiotropium 2.5 mcg-olodaterol 2.5 2 puff inhalation DAILY 30 days #4 12/07/22 mcg/actuation mist for inhalation grams (Stiolto Respimat) hydrochlorothiazide 12.5 mg tablet 12.5 mg PO DAILY #30 tabs 12/25/22 lidocaine 5 % topical patch 1 patch topical DAILY #15 ea 12/25/22 (Lidoderm) prednisone 20 mg tablet 40 mg PO DAILY #10 tabs 12/25/22 ketorolac 10 mg tablet 10 mg PO TID PRN pain 5 days #15 12/29/22 tabs lidocaine 5 % topical patch 1 patch topical DAILY PRN pain #15 12/29/22 ea oxycodone 5 mg tablet 5 mg PO Q6H PRN pain #14 tabs 12/29/22 ibuprofen 600 mg tablet 600 mg PO Q8H PRN pain #30 tabs 12/31/22 hydrocodone 5 mg-acetaminophen 325 1 tab PO Q8H PRN pain, severe 3 01/09/23 mg tablet days #9 tabs lidocaine 5 % topical patch 1 patch topical DAILY PRN pain #30 01/09/23 (Lidoderm) ea naproxen 500 mg tablet 500 mg PO BID PRN pain 10 days #20 01/09/23 tabs Allergies Allergy/AdvReac Type Severity Reaction Status Date / Time lisinopril AdvReac Cough Verified 12/31/22 11:33 Review of Systems Review of Systems: Constitutional: No Fever, No Chills, No Fatigue, No Malaise ENT/Mouth: No Ear Pain, No Nasal Congestion, No sore throat, No Rhinorrhea, No Swallowing Difficulty Eyes: No Eye Pain, No Swelling, No Redness, No Vision Changes Cardiovascular: No Chest Pain, No SOB, No Edema, No Palpitations Respiratory: No Cough, No Sputum, No Wheezing, No Dyspnea Gastrointestinal: No Nausea, No Vomiting, No Diarrhea, + Constipation, + Abdominal pain Genitourinary: No irregular bleeding, +Dysuria, No Urinary Frequency, No Hematuria, No Urinary Incontinence/retention, + Flank Pain, No Urinary Flow Changes, No Hesitancy Musculoskeletal: No joint pain, No Myalgias, No Joint Swelling Skin: No Skin Lesions, No rash Neuro: No Weakness, No Numbness, No Headache Yes all other systems are reviewed and are negative Constitutional: Constitutional: Reports as per [facility] Past Medical History Attestation statement: The following information was validated with the patient. Medical History Asthma Surgical History History of surgery on arm Hx of cholecystectomy Social History Social History Household Members: Family Housing: House Alcohol intake: former Patient Tobacco Use Status: Former Tobacco user e-Cigarette/Vaping Use: Never Used Second Hand Smoke Exposure: No Advance Directives: No service: No Current occupational status: employed Current occupation: works nights Current occupational exposures/hazards: No Physical Exam ED Vital Signs: Vital Signs - 24 hr 01/09/23 09:44 01/09/23 11:44 01/09/23 14:09 Temperature 98.2 F 98.1 F Pulse Rate 81 75 70 Respiratory Rate 18 14 12 Blood Pressure 143/100 H 137/82 154/108 H Pulse Oximetry 98 96 96 Oxygen Delivery Method Room Air Room Air Room Air 01/09/23 14:24 Temperature Pulse Rate 62 Respiratory Rate Blood Pressure 130/86 Pulse Oximetry Oxygen Delivery Method BMI result Body Mass Index 35.7 Const General: cooperative, healthy appearing and no acute distress Orientation/consciousness: patient oriented x3 Limitations: no limitations HENMT Head: Yes normal to inspection and Yes atraumatic Ears: hearing grossly normal bilaterally General nose exam: Normal external nose present Face and sinus: Yes normal facial exam Eyes General: appearance normal, both eyes and all related structures EOM: EOMs intact bilaterally Neck Neck: Yes normal visual inspection and Yes no meningeal signs Resp Effort & Inspection: normal respiratory effort and no respiratory distress Auscultation: clear to auscultation bilaterally Cardio Rate: regular rate Heart sounds: S1 normal heart sound present and S2 normal heart sound present GI Inspection: Yes normal to inspection Palpation (GI): Soft to palpation, Tenderness to palpation present (GI) (right side) with no rebound tenderness, no guarding and not rigid General: Yes CVA tenderness on the right Back/Spine/Pelvis Back: CVA tenderness Skin Rashes: no rashes Wounds: no wounds Neuro General: patient oriented x3, tone normal and no meningeal signs Gait exam (Neuro): Normal gait present Extrem General: Yes normal to inspection Course Course Course Narrative: -no leukocytosis. Labs otherwise reassuring. -UA not infected CT abdomen pelvis wo IV con IMPRESSION: 1.? Acute minimally displaced right eighth posterolateral rib fracture. This may very well be the cause of the patient's right CVA tenderness. 2.? Hepatic steatosis. 3.? Other incidental findings as described above. ? Fleischner guidelines were followed. >> results discussed with patient. Reports he sneezed and felt pain, suspected rib fracture. Patient denies taking BP medication today, will give home doses and re-evaluate Results discussed with patient including worrisome signs and symptoms and strict return precautions, and when to return to the emergency department. They verbalized understanding and feel safe for discharge at this time. Medications Administered Discontinued Medications Generic Name Dose Route Start Last Admin Trade Name Freq PRN Reason Stop Dose Admin Amlodipine Besylate 10 mg 01/09/23 13:36 01/09/23 13:49 Amlodipine Besylate 10 Mg Tablet PO 01/09/23 13:37 10 mg ONCE ONE Administration Protocol Famotidine 20 mg 01/09/23 10:50 01/09/23 11:07 Famotidine/Pf 20 Mg/2 Ml Vial IVPUSH 01/09/23 10:51 20 mg ONCE ONE Administration Hydrochlorothiazide 12.5 mg 01/09/23 13:36 01/09/23 13:49 Hydrochlorothiazide 12.5 Mg Tablet PO 01/09/23 13:37 12.5 mg ONCE ONE Administration Protocol Sodium Chloride 1,000 mls @ 999 mls/hr 01/09/23 11:00 01/09/23 14:10 Ns IV 01/09/23 12:00 Infused .Q1H1M KATHY Infusion Ketorolac Tromethamine 15 mg 01/09/23 10:52 01/09/23 11:07 Ketorolac Tromethamine 15 Mg/Ml Vial IVPUSH 01/09/23 10:53 15 mg ONCE ONE Administration Ketorolac Tromethamine 15 mg 01/09/23 13:37 01/09/23 13:50 Ketorolac Tromethamine 15 Mg/Ml Vial IVPUSH 01/09/23 13:38 15 mg ONCE ONE Administration Oxycodone HCl 5 mg 01/09/23 13:37 01/09/23 13:50 Oxycodone Hcl Immed Release 5 Mg Tablet PO 01/09/23 13:38 5 mg ONCE ONE Administration Medical Decision Making Medical Decision Making MDM Narrative: 52-year-old male with past medical history of asthma presenting to the ED complaining of RLQ abdominal pain radiating to right flank x 1 week with associated dysuria. On exam hypertensive likely from pain, NAD, nontoxic, abdomen soft with right sided tenderness and right CVA tenderness, no rebound or guarding. Concern for renal stone vs pyelo vs UTI. Appendicitis on differential however lower. Lower suspicion for diverticulitis Plan: Labs, UA, CT AP, IVF, pain management, re-evaluate Please refer to course for remaining clinical decision making, interpretation of labs/imaging results, and discussions with consultants and/or family members. Differential Diagnosis Differential Diagnoses: The differential diagnosis associated with the presentation includes As above Admission/Observation Consideration of admission/observation: Escalation of care including admission/observation considered Lab Data MDM Lab Attestation statement: I reviewed the patient's lab results. 01/09/23 10:17 01/09/23 10:17 Labs: Lab Results 01/09/23 01/09/23 01/09/23 Range/Units 10:17 10:17 10:17 WBC 7.9 (4.8-10.8) X10*3/uL RBC 5.48 (4.60-5.80) X10*6/uL Hgb 14.1 (14.0-18.0) g/dl Hct 43.6 (42.0-52.0) % MCV 79.6 L (80.0-98.0) fL MCH 25.7 L (27.0-33.0) pg MCHC 32.3 (31.0-36.0) g/dl RDW 14.6 (11.0-16.0) % Plt Count 318 (160-400) X10*3/uL MPV 9.5 (9.4-12.4) fL Immature Gran % (Auto) 1.3 H (0.0-0.4) % Neut % (Auto) 57.7 (45-73) % Lymph % (Auto) 28.4 (20-40) % [place] % (Auto) 8.1 (2-11) % Eos % (Auto) 4.0 (0-4) % Baso % (Auto) 0.5 (0-2) % Lymph # (Auto) 2.3 (1.2-4.9) X10*3/uL [place] # (Auto) 0.6 (0.1-1.2) X10*3/uL Eos # (Auto) 0.3 (0.0-0.4) X10*3/uL Baso # (Auto) 0.0 (0.0-0.2) X10*3/uL Abs Immat Gran (auto) 0.10 H (0.00-0.03) X10*3/uL Absolute Neuts (auto) 4.6 (2.0-8.3) x10*3/uL Absolute Nucleated RBC 0.000 (0.0-0.012) X10*3/uL Nucleated RBC % (auto) 0.0 (0.0-0.2) /100WBC Sodium 141 (135-145) mmol/L Potassium 4.3 (3.3-5.1) mmol/L Chloride 105 (96-108) mmol/L Carbon Dioxide 26 (22-29) mmol/L Anion Gap 14 (12-20) BUN 16 (9-16) mg/dL Creatinine 0.84 (0.5-1.4) mg/dL Estim Creat Clear Calc 115.7 Estimated GFR > 60 Random Glucose 117 H (60-115) mg/dL Calcium 9.4 (8.4-10.2) mg/dL Magnesium 1.8 (1.6-2.6) mg/dL Total Bilirubin 0.4 (0.0-1.0) mg/dL Direct Bilirubin < 0.2 (0.0-0.5) mg/dL AST 18 (5-37) U/L ALT 30 (0-40) U/L Alkaline Phosphatase 87 (39-117) U/L Total Protein 6.8 (6.5-8.0) g/dL Albumin 4.1 (3.5-5.0) g/dL Lipase 20 (8-78) U/L Urine Color Yellow Urine Appearance Clear Urine pH 5.5 (5.0-9.0) Ur Specific [place] 1.020 (1.005-1.025) Urine Protein Negative (Neg-Trace) mg/dL Urine Glucose (UA) Negative (Negative) mg/dL Urine Ketones Negative (Negative) mg/dL Urine Blood Negative (Negative) Urine Nitrite Negative (Negative) Ur Leukocyte Esterase Negative (Negative) COVID-19 ([facility]) (Negative) COVID-19 Clin Com 01/09/23 Range/Units 11:21 WBC (4.8-10.8) X10*3/uL RBC (4.60-5.80) X10*6/uL Hgb (14.0-18.0) g/dl Hct (42.0-52.0) % MCV (80.0-98.0) fL MCH (27.0-33.0) pg MCHC (31.0-36.0) g/dl RDW (11.0-16.0) % Plt Count (160-400) X10*3/uL MPV (9.4-12.4) fL Immature Gran % (Auto) (0.0-0.4) % Neut % (Auto) (45-73) % Lymph % (Auto) (20-40) % [place] % (Auto) (2-11) % Eos % (Auto) (0-4) % Baso % (Auto) (0-2) % Lymph # (Auto) (1.2-4.9) X10*3/uL [place] # (Auto) (0.1-1.2) X10*3/uL Eos # (Auto) (0.0-0.4) X10*3/uL Baso # (Auto) (0.0-0.2) X10*3/uL Abs Immat Gran (auto) (0.00-0.03) X10*3/uL Absolute Neuts (auto) (2.0-8.3) x10*3/uL Absolute Nucleated RBC (0.0-0.012) X10*3/uL Nucleated RBC % (auto) (0.0-0.2) /100WBC Sodium (135-145) mmol/L Potassium (3.3-5.1) mmol/L Chloride (96-108) mmol/L Carbon Dioxide (22-29) mmol/L Anion Gap (12-20) BUN (9-16) mg/dL Creatinine (0.5-1.4) mg/dL Estim Creat Clear Calc Estimated GFR Random Glucose (60-115) mg/dL Calcium (8.4-10.2) mg/dL Magnesium (1.6-2.6) mg/dL Total Bilirubin (0.0-1.0) mg/dL Direct Bilirubin (0.0-0.5) mg/dL AST (5-37) U/L ALT (0-40) U/L Alkaline Phosphatase (39-117) U/L Total Protein (6.5-8.0) g/dL Albumin (3.5-5.0) g/dL Lipase (8-78) U/L Urine Color Urine Appearance Urine pH (5.0-9.0) Ur Specific [place] (1.005-1.025) Urine Protein (Neg-Trace) mg/dL Urine Glucose (UA) (Negative) mg/dL Urine Ketones (Negative) mg/dL Urine Blood (Negative) Urine Nitrite (Negative) Ur Leukocyte Esterase (Negative) COVID-19 ([facility]) Negative (Negative) COVID-19 Clin Com See Note Radiology Impression Discussion of test interpretation with radiology: I have reviewed the radiologist's reading. External Record Review External record reviewed: Inpatient record, Office record, Outpatient record, Prior outpatient labs, Prior outpatient radiology, Primary care record and Outside ED record Discharge Plan Discharge Clinical Impression: Fracture of rib, HTN (hypertension) Patient Disposition: Home, Self-Care Instructions: Rib Fracture (ED) Additional Instructions: You a minimally displaced fracture of your right 8th rib. Your blood work otherwise looks unremarkable. your urine is not infected [place] is an opiate pain medication, take only when pain is severe for the next 3 days. Lidoderm patches or numbing patches, apply to painful area Naproxen as an anti-inflammatory/pain medication, take with food. Do not take both ibuprofen/Aleve and naproxen, there are similar medications, choose 1 In addition you may take Tylenol Do not skip home blood pressure medicine Tiene michael fractura m?nimamente desplazada de la octava loren derecha. Por lo dem?s, montanez an?lisis de marcella parece normal. tu orina no esta infectada [place] es un analg?sico opi?development writer, t?wagner solo cuando el dolor sea intenso treva los pr?ximos 3 d?as. Parches de lidodermo o parches anest?sicos, aplicar en el ?zbigniew dolorida Naproxeno raffi medicamento antiinflamatorio/analg?sico, t?wagner con alimentos. No tome ibuprofeno/Aleve y naproxeno a la vez, existen medicamentos similares, elija 1 Adem?s, puede ron Tylenol Prescriptions: New hydrocodone-acetaminophen 5-325 mg tablet 1 tab PO Q8H PRN (Reason: pain, severe) 3 Days Qty: 9 0RF Rx Instructions: Partial Fill upon patient request. lidocaine [Lidoderm] 5 % adhesive patch,medicated 1 patch topical DAILY MDD remove after 12 hours PRN (Reason: pain) Qty: 30 0RF Rx Instructions: leave on most painful area for up to 12 hrs naproxen 500 mg tablet 500 mg PO BID PRN (Reason: pain) 10 Days Qty: 20 0RF No Action atorvastatin 40 mg tablet 40 mg PO BEDTIME Qty: 90 3RF coenzyme Q10 100 mg tablet 100 mg PO DAILY Qty: 90 3RF Stiolto Respimat 2.5-2.5 mcg/actuation mist 2 puff inhalation DAILY 30 Days Qty: 4 6RF albuterol sulfate [ProAir HFA] 90 mcg/actuation HFA aerosol inhaler 2 puff inhalation Q4-6H PRN (Reason: shortness of breath or wheezing) Qty: 8.5 0RF hydrochlorothiazide 12.5 mg tablet 12.5 mg PO DAILY Qty: 30 0RF prednisone 20 mg tablet 40 mg PO DAILY Qty: 10 0RF lidocaine [Lidoderm] 5 % adhesive patch,medicated 1 patch topical DAILY Qty: 15 0RF Rx Instructions: leave on most painful area for up to 12 hrs ketorolac 10 mg tablet 10 mg PO TID PRN (Reason: pain) 5 Days Qty: 15 0RF lidocaine 5 % adhesive patch,medicated 1 patch topical DAILY PRN (Reason: pain) Qty: 15 0RF Rx Instructions: leave on most painful area for up to 12 hrs oxycodone 5 mg tablet 5 mg PO Q6H PRN (Reason: pain) Qty: 14 0RF Rx Instructions: Partial Fill upon patient request. albuterol sulfate 1.25 mg/3 mL solution for nebulization 1.25 mg inhalation Q4H 30 Days Qty: 540 5RF cephalexin 750 mg capsule 750 mg PO BID Qty: 20 0RF (DME) blood pressure kit-extra large Kit See Rx Instructions .Route Qty: 1 0RF Rx Instructions: As directed miscellaneous medical supply Misc See Rx Instructions miscellaneous .COMPLEX Qty: 1 0RF Rx Instructions: air purifier for personal use as directed; amlodipine [Norvasc] 10 mg tablet 10 mg PO DAILY Qty: 30 1RF ibuprofen 600 mg tablet 600 mg PO Q8H PRN (Reason: pain) Qty: 30 0RF pantoprazole 40 mg tablet,delayed release (DR/EC) 40 mg PO DAILY 30 Days Qty: 30 11RF docusate sodium [Colace] 100 mg capsule 200 mg PO BEDTIME Qty: 60 5RF polyethylene glycol 3350 [Miralax] 17 gram/dose powder 17 g PO DAILY Qty: 510 6RF Citrucel 500 mg tablet 500 mg PO BID Qty: 60 5RF Referrals: Physician,Unknown J [Primary Care Provider] - 3 days Interventions: ED Discharge Assessment Last Done: 01/09/23 14:27 Discharge Date/Time: 01/09/23 14:28 Print Language: English
[2023-01-09 10:49] LABS: Anion Gap 14 (12-20); Blood Urea Nitrogen 16 mg/dL (9-16); Calcium 9.4 mg/dL (8.4-10.2); Carbon Dioxide 26 mmol/L (22-29); Chloride 105 mmol/L (96-108); Creatinine Clr Calc Pharmacy 115.7; Estimated Glomerular Filt Rate > 60; Glucose Random 117 mg/dL (60-115); Potassium 4.3 mmol/L (3.3-5.1); Sodium 141 mmol/L (135-145)
--- NOTE | 2023-01-09 10:50 | ECG_ITS ---
Test Reason : Epigastric abdominal pain Blood Pressure : / mmHG Vent. Rate : 062 BPM Atrial Rate : 062 BPM P-R Int : 216 ms QRS Dur : 068 ms QT Int : 418 ms P-R-T Axes : 046 013 061 degrees QTc Int : 424 ms Sinus rhythm with 1st degree A-V block Nonspecific T wave abnormality Abnormal ECG When compared with ECG of 29-DEC-2022 00:58, ID interval has increased T wave amplitude has increased in Anterior leads Referred By: Gracie Schumacher Electronically Signed By:Emile Rivas
[2023-01-09] MEDS: 0.9 % Sodium Chloride 1,000 ML 999 ML IV (11:06)
[2023-01-09] MEDS: Ketorolac Tromethamine 15 MG/ML VIAL IVPUSH ×2 (11:07→13:50)
[2023-01-09] MEDS: Famotidine/PF 20 MG/2 ML VIAL IVPUSH (11:07)
[2023-01-09 11:19] LABS: Alanine Aminotransferase 30 U/L (0-40); Albumin Level 4.1 g/dL (3.5-5.0); Alkaline Phosphatase 87 U/L (39-117); Aspartate Amino Transferase 18 U/L (5-37); Bilirubin Direct < 0.2 mg/dL (0.0-0.5); Bilirubin Total 0.4 mg/dL (0.0-1.0); Lipase 20 U/L (8-78); Magnesium 1.8 mg/dL (1.6-2.6); Total Protein 6.8 g/dL (6.5-8.0)
[2023-01-09 11:44] VITALS: BP 137/82; PULSE 75; RESP 14; TEMP 36.7; O2SAT 96
[2023-01-09 11:49] LABS: COVID-19 Test Negative (Negative); IDNOW Serial# 08D9AD1C
[2023-01-09] MEDS: amLODIPine Besylate 10 MG TABLET PO (13:49)
[2023-01-09] MEDS: hydroCHLOROthiazide 12.5 MG TABLET PO (13:49)
[2023-01-09] MEDS: oxyCODONE HCl Immed Release 5 MG TABLET PO (13:50)
[2023-01-09 14:09] VITALS: BP 154/108; PULSE 70; RESP 12; O2SAT 96
[2023-01-09 14:24] VITALS: BP 130/86; PULSE 62
== END 2023-01-09 14:28 | disposition home or self-care (01) ==
PROVIDERS: Physician Assistant; Emergency Provider Emergency Medicine Emergency Medical Services
DX: S22.31XA Fracture of one rib, right side, initial encounter for closed fracture (principal); X58.XXXA Exposure to other specified factors, initial encounter; I10 Essential (primary) hypertension; R10.31 Right lower quadrant pain; R10.9 Unspecified abdominal pain; Z20.822 Contact with and (suspected) exposure to COVID-19; E78.5 Hyperlipidemia, unspecified; Z79.02 Long term (current) use of antithrombotics/antiplatelets; Y93.9 Activity, unspecified; Y92.9 Unspecified place or not applicable; Y99.9 Unspecified external cause status
CPT/HCPCS: 36415; 74176; 80048; 80076; 81003; 83690; 83735; 85025; 87635; 93005; 96361; 96374; 96375; 96376; 99284; J1885

== ENCOUNTER 2023-01-21 10:19 | Emergency (ER) | payer OTHER, SELFPAY ==
--- NOTE | ~2023-01-21 | XR_ITS ---
EXAMINATION: XR CHEST CLINICAL INFORMATION: Cough COMPARISON: Previous chest x-ray and chest CT December 2022 TECHNIQUE: Frontal view of the chest was obtained. FINDINGS: The cardiac and mediastinal contours are stable. The lungs are clear. No pleural effusion or pneumothorax. Old right eighth and left ninth rib fractures. Degenerative changes of the spine. XR/XR chest 1V IMPRESSION: No evidence for acute disease in the chest.
[2023-01-21 10:48] VITALS: BP 159/109; PULSE 90; RESP 18; TEMP 36.7; O2SAT 95; BMI 44.2
[2023-01-21 11:32] LABS: IDNOW Serial# 6674DD1D; Influenza A Negative (Negative); Influenza B2 Negative (Negative)
[2023-01-21 11:37] LABS: COVID-19 Test Negative (Negative); IDNOW Serial# 55D5AD1C
[2023-01-21 11:57] LABS: IDNOW Serial# 08D9AD1C; Strep A Nucleic Acid Negative (Negative)
[2023-01-21] MEDS: predniSONE 20 MG TABLET 60 MG PO (11:58)
--- NOTE | 2023-01-21 11:58 | ED_ITS ---
HPI - General Adult General Chief complaint: Upper Respiratory Symptoms Stated complaint: Sore throat/SOB/Pain when coughing Time Seen by Provider: 01/21/23 11:17 Source: patient Mode of arrival: ambulatory Limitations: no limitations History of Present Illness HPI narrative: 52-year-old male with past medical history of asthma, COPD, and acid reflux presents to ED for shortness of breath, cough, fever, body aches, and sore throat. Patient states having symptoms for 1 week. Patient states was prescribed steroids but never picked up the prescription. Patient denies any leg swelling, calf pain, coughing up blood, or chest pain on inspiration. Related Data Previous Rx's Medication Instructions Recorded pantoprazole 40 mg tablet,delayed 40 mg PO DAILY 30 days #30 tabs 07/17/22 release albuterol sulfate 1.25 mg/3 mL 1.25 mg (3 mL) inhalation Q4H 1 09/06/22 solution for nebulization month #540 mL docusate sodium 100 mg capsule 200 mg PO BEDTIME #60 caps 09/11/22 (Colace) methylcellulose (laxative) 500 mg 500 mg PO BID #60 tabs 09/11/22 tablet (Citrucel) polyethylene glycol 3350 17 17 g PO DAILY #510 grams 09/11/22 gram/dose oral powder (Miralax) albuterol sulfate 90 mcg/actuation 2 puff inhalation Q4-6H PRN 10/14/22 aerosol inhaler (ProAir HFA) shortness of breath or wheezing #8.5 grams atorvastatin 40 mg tablet 40 mg PO BEDTIME #90 tabs 11/20/22 blood pressure kit-extra large #1 ea 11/20/22 cephalexin 750 mg capsule 750 mg PO BID #20 caps 11/20/22 miscellaneous medical supply See Rx Instructions miscellaneous 11/20/22 .COMPLEX #1 ea coenzyme Q10 100 mg tablet 100 mg PO DAILY #90 tabs 11/26/22 amlodipine 10 mg tablet (Norvasc) 10 mg PO DAILY #30 tabs 11/29/22 tiotropium 2.5 mcg-olodaterol 2.5 2 puff inhalation DAILY 30 days #4 12/07/22 mcg/actuation mist for inhalation grams (Stiolto Respimat) hydrochlorothiazide 12.5 mg tablet 12.5 mg PO DAILY #30 tabs 12/25/22 lidocaine 5 % topical patch 1 patch topical DAILY #15 ea 12/25/22 (Lidoderm) prednisone 20 mg tablet 40 mg PO DAILY #10 tabs 12/25/22 ketorolac 10 mg tablet 10 mg PO TID PRN pain 5 days #15 12/29/22 tabs lidocaine 5 % topical patch 1 patch topical DAILY PRN pain #15 12/29/22 ea oxycodone 5 mg tablet 5 mg PO Q6H PRN pain #14 tabs 12/29/22 ibuprofen 600 mg tablet 600 mg PO Q8H PRN pain #30 tabs 12/31/22 hydrocodone 5 mg-acetaminophen 325 1 tab PO Q8H PRN pain, severe 3 01/09/23 mg tablet days #9 tabs lidocaine 5 % topical patch 1 patch topical DAILY PRN pain #30 01/09/23 (Lidoderm) ea naproxen 500 mg tablet 500 mg PO BID PRN pain 10 days #20 01/09/23 tabs benzonatate 100 mg capsule 100 mg PO TID PRN cough 5 days #15 01/21/23 caps oxycodone 5 mg capsule 5 mg PO BID PRN pain 3 days #9 caps 01/21/23 prednisone 20 mg tablet 40 mg PO DAILY 5 days #10 tabs 01/21/23 Allergies Allergy/AdvReac Type Severity Reaction Status Date / Time lisinopril AdvReac Cough Verified 12/31/22 11:33 Review of Systems Review of Systems: Cough, wheezing, sore throat, SOB Yes all other systems are reviewed and are negative [facility], [facility] Past Medical History Medical History Asthma Surgical History History of surgery on arm Hx of cholecystectomy Social History Social History Household Members: Family Housing: House Alcohol intake: former Patient Tobacco Use Status: Former Tobacco user e-Cigarette/Vaping Use: Never Used Second Hand Smoke Exposure: No Advance Directives: No Advance Directives Information Provided: Yes service: No Current occupational status: employed Current occupation: works nights Current occupational exposures/hazards: No Physical Exam ED Vital Signs: Vital Signs - 24 hr 01/21/23 10:48 01/21/23 12:21 Temperature 98.1 F Pulse Rate 90 74 Respiratory Rate 18 16 Blood Pressure 159/109 H Pulse Oximetry 95 Oxygen Delivery Method Room Air BMI result Body Mass Index 44.2 Const General: cooperative, healthy appearing, comfortable, no acute distress, well developed, alert, awake and Physically active Orientation/consciousness: oriented to person, oriented to place, oriented to time and patient oriented x3 [facility] Head: Yes normal to inspection, Yes No palpable skull fracture present, Yes normocephalic, Yes atraumatic and No abrasion Ears: hearing grossly normal bilaterally, external ears normal, TM's normal bilaterally, TM normal on the right, mastoids normal and no periauricular adenopathy Throat: Yes posterior oropharynx normal, Yes tonsils normal and Yes uvula midline Eyes General: appearance normal, both eyes and all related structures Neck Neck: Yes normal visual inspection, Yes full ROM, Yes no lymphadenopathy, Yes no meningeal signs, Yes trachea midline, Yes supple, No anterior neck swelling and No tender Chest Chest palpation & inspection: normal inspection of the chest and normal palpation of entire chest wall Resp Effort & Inspection: normal respiratory effort and able to speak in complete sentences Auscultation: wheezes expiratory wheezes Cardio Jugular venous distension: no JVD Heart sounds: S1 normal heart sound present and S2 normal heart sound present GI Inspection: Yes normal to inspection and No abdominal wall ecchymosis Palpation (GI): Soft to palpation, not firm, nontender, no guarding and not rigid General: No CVA tenderness and Yes no CVA tenderness Back/Spine/Pelvis Back: no CVA tenderness, No CVA tenderness and No back tenderness Skin General skin exam: no rashes or lesions noted and elasticity normal Neuro General: oriented to person, oriented to place, oriented to time, patient oriented x3, gait normal, tone normal, moves all extremities, Normal light touch and pain sensation, no meningeal signs, no focal motor deficits, CN's II-XI intact bilaterally, normal sensation to monofilament and deep tendon reflexes 2+ bilaterally Extrem Other: Bilateral lower extremities negative for swelling, pitting edema, or calf tenderness. General: Yes normal to inspection and Yes full ROM Psych Appearance: grossly normal, well kempt and not disheveled Course Course Course Narrative: Patient well-appearing. Chest x-ray, SARS, COVID, strep ordered. Prednisone and nebulizer of albuterol ordered. Reevaluation(s) Reevaluation #1: History physical exam does not indicate CHF, pneumonia, DVT, myocardial infarction, or respiratory distress. History & physical exam does not show respiratory distress. Patient discharged with steroids and cough medication. Patient feels better after treatment Medications Administered Discontinued Medications Generic Name Dose Route Start Last Admin Trade Name Freq PRN Reason Stop Dose Admin Albuterol/Ipratropium 3 ml 01/21/23 11:50 01/21/23 12:19 Albuterol/Iprat 2.5/0.5mg 3 Ml Ampul.Neb INHALE 01/21/23 11:51 3 ml ONCE ONE Administration Prednisone 60 mg 01/21/23 11:51 01/21/23 11:58 Prednisone 20 Mg Tablet PO 01/21/23 11:52 60 mg ONCE ONE Administration Medical Decision Making Medical Decision Making MDM Narrative: 52-year-old male history of asthma COPD presents to ED for 1 week of coughing, wheezing, bodyaches, sore throat and SOB. Patient denies any leg swelling, pleurisy, coughing up blood, recent long travel, calf pain, or recent surgery. Patient denies any shortness of breath on exertion. History physical exam indicate asthma exacerbation. History physical exam does not indicate PE, DVT, pneumonia, CHF, or myocardial infarction. Differential Diagnosis Differential Diagnoses: The differential diagnosis associated with the presentation includes (Pneumonia, CHF, PE, myocardial infarction,) Admission/Observation Consideration of admission/observation: Escalation of care including admission/observation considered Lab Data MDM Lab Attestation statement: I reviewed the patient's lab results. Labs: Lab Results 01/21/23 01/21/23 01/21/23 Range/Units 11:00 11:00 11:18 COVID-19 (DOMINGA) Negative (Negative) COVID-19 Clin Com See Note Influenza Type A (HAN) Negative (Negative) Influenza Type B (HAN) Negative (Negative) Influenza A & B Note See Note S. pyogenes GrpA HAN Negative (Negative) Radiology Impression Discussion of test interpretation with radiology: I have reviewed the radiologist's reading. Prescription Management I considered prescription management with: Pain Medication and Antibiotic Discharge Plan Discharge Clinical Impression: Asthma Patient Disposition: Home, Self-Care Instructions: Asthma (DC) Additional Instructions: Regrese al servicio de urgencias inmediatamente si tiene hinchaz?n en las piernas, dolor en la pantorrilla, tos con marcella, dificultad para respirar que empeora, dolor en el pecho, pleures?a, debilidad, mareos o cualquier otro s?ntoma preocupante. Por favor, gerald un seguimiento con el proveedor de atenci?n primaria. Contin?e usando montanez inhalador de albuterol en casa. Prescriptions: New prednisone 20 mg tablet 40 mg PO DAILY 5 Days Qty: 10 0RF benzonatate 100 mg capsule 100 mg PO TID PRN (Reason: cough) 5 Days Qty: 15 0RF oxycodone 5 mg capsule 5 mg PO BID PRN (Reason: pain) 3 Days Qty: 9 0RF Rx Instructions: Partial Fill upon patient request. No Action atorvastatin 40 mg tablet 40 mg PO BEDTIME Qty: 90 3RF coenzyme Q10 100 mg tablet 100 mg PO DAILY Qty: 90 3RF Stiolto Respimat 2.5-2.5 mcg/actuation mist 2 puff inhalation DAILY 30 Days Qty: 4 6RF albuterol sulfate [ProAir HFA] 90 mcg/actuation HFA aerosol inhaler 2 puff inhalation Q4-6H PRN (Reason: shortness of breath or wheezing) Qty: 8.5 0RF hydrochlorothiazide 12.5 mg tablet 12.5 mg PO DAILY Qty: 30 0RF prednisone 20 mg tablet 40 mg PO DAILY Qty: 10 0RF lidocaine [Lidoderm] 5 % adhesive patch,medicated 1 patch topical DAILY Qty: 15 0RF Rx Instructions: leave on most painful area for up to 12 hrs ketorolac 10 mg tablet 10 mg PO TID PRN (Reason: pain) 5 Days Qty: 15 0RF lidocaine 5 % adhesive patch,medicated 1 patch topical DAILY PRN (Reason: pain) Qty: 15 0RF Rx Instructions: leave on most painful area for up to 12 hrs oxycodone 5 mg tablet 5 mg PO Q6H PRN (Reason: pain) Qty: 14 0RF Rx Instructions: Partial Fill upon patient request. hydrocodone-acetaminophen 5-325 mg tablet 1 tab PO Q8H PRN (Reason: pain, severe) 3 Days Qty: 9 0RF Rx Instructions: Partial Fill upon patient request. lidocaine [Lidoderm] 5 % adhesive patch,medicated 1 patch topical DAILY MDD remove after 12 hours PRN (Reason: pain) Qty: 30 0RF Rx Instructions: leave on most painful area for up to 12 hrs naproxen 500 mg tablet 500 mg PO BID PRN (Reason: pain) 10 Days Qty: 20 0RF albuterol sulfate 1.25 mg/3 mL solution for nebulization 1.25 mg inhalation Q4H 30 Days Qty: 540 5RF cephalexin 750 mg capsule 750 mg PO BID Qty: 20 0RF (DME) blood pressure kit-extra large Kit See Rx Instructions .Route Qty: 1 0RF Rx Instructions: As directed miscellaneous medical supply Misc See Rx Instructions miscellaneous .COMPLEX Qty: 1 0RF Rx Instructions: air purifier for personal use as directed; amlodipine [Norvasc] 10 mg tablet 10 mg PO DAILY Qty: 30 1RF ibuprofen 600 mg tablet 600 mg PO Q8H PRN (Reason: pain) Qty: 30 0RF pantoprazole 40 mg tablet,delayed release (DR/EC) 40 mg PO DAILY 30 Days Qty: 30 11RF docusate sodium [Colace] 100 mg capsule 200 mg PO BEDTIME Qty: 60 5RF polyethylene glycol 3350 [Miralax] 17 gram/dose powder 17 g PO DAILY Qty: 510 6RF Citrucel 500 mg tablet 500 mg PO BID Qty: 60 5RF Stand Alone Forms: Work/School Release Interventions: ED Discharge Assessment Last Done: 01/21/23 13:02 Discharge Date/Time: 01/21/23 13:03 Print Language: Estonian
--- NOTE | 2023-01-21 12:01 | PC.NURSE ---
pt medicated per MR- awaiting TX from respiratory
[2023-01-21] MEDS: Albuterol/Iprat 2.5/0.5MG 3 ML AMPUL.NEB INHALE (12:19)
[2023-01-21 12:21] VITALS: PULSE 74; RESP 16; O2SAT 99
== END 2023-01-21 13:03 | disposition home or self-care (01) ==
PROVIDERS: Emergency Provider Emergency Medicine
DX: J45.909 Unspecified asthma, uncomplicated (principal); Z20.822 Contact with and (suspected) exposure to COVID-19; Z79.899 Other long term (current) drug therapy
CPT/HCPCS: 71045; 87502; 87635; 87651; 94640; 99283; 99284

== ENCOUNTER 2023-01-29 09:04 | Emergency (ER) | payer OTHER, SELFPAY ==
[2023-01-29 10:08] VITALS: BP 166/118; PULSE 74; RESP 20; TEMP 36.6; O2SAT 96; BMI 49.6
[2023-01-29 10:32] LABS: Appearance Urine Clear; Color Urine Yellow; Glucose Urine UA Negative (Negative); Leukocyte Esterase Urine Negative (Negative); Nitrite Urine Negative (Negative); PH 5.5 (5.0-9.0); Specific Gravity - Urine >= 1.030 (1.005-1.025); Urine Blood Negative (Negative); Urine Ketones Negative (Negative); Urine Protein Trace mg/dL (Neg-Trace)
--- NOTE | 2023-01-29 10:36 | PC.NURSE ---
pt a+o x4, c/o 07/16 r side pain. reports that he lifted a stove yesterday and woke up this morning with the pain. denies any other symptoms. hx of htn, did not take bp meds this morning, current bp 166/118. pt does not remember the name of his bp med.
--- NOTE | 2023-01-29 10:54 | ED_ITS ---
HPI - Abdominal Pain General Chief Complaint: Abdominal Pain Stated Complaint: R side pain Time Seen by Provider: 01/29/23 09:37 Source: patient and vice chair Mode of arrival: ambulatory History of Present Illness HPI narrative: 52-year-old male who complains of 10/10 her right-sided pain after lifting a stove yesterday. This is not been associated with any fever, chills, nausea, vomiting, shortness of breath, chest pain/palpitations denies any other GI or symptoms. Patient is status post cholecystectomy and has not taken hands hypertensive medications morning. Related Data Previous Rx's Medication Instructions Recorded pantoprazole 40 mg tablet,delayed 40 mg PO DAILY 30 days #30 tabs 07/17/22 release albuterol sulfate 1.25 mg/3 mL 1.25 mg (3 mL) inhalation Q4H 1 09/06/22 solution for nebulization month #540 mL docusate sodium 100 mg capsule 200 mg PO BEDTIME #60 caps 09/11/22 (Colace) methylcellulose (laxative) 500 mg 500 mg PO BID #60 tabs 09/11/22 tablet (Citrucel) polyethylene glycol 3350 17 17 g PO DAILY #510 grams 09/11/22 gram/dose oral powder (Miralax) atorvastatin 40 mg tablet 40 mg PO BEDTIME #90 tabs 11/20/22 blood pressure kit-extra large #1 ea 11/20/22 miscellaneous medical supply See Rx Instructions miscellaneous 11/20/22 .COMPLEX #1 ea coenzyme Q10 100 mg tablet 100 mg PO DAILY #90 tabs 11/26/22 tiotropium 2.5 mcg-olodaterol 2.5 2 puff inhalation DAILY 30 days #4 12/07/22 mcg/actuation mist for inhalation grams (Stiolto Respimat) albuterol sulfate 90 mcg/actuation 2 puff inhalation Q4-6H PRN 01/28/23 aerosol inhaler (ProAir HFA) shortness of breath or wheezing #8.5 grams amlodipine 10 mg tablet (Norvasc) 10 mg PO DAILY #90 tabs 01/28/23 hydrochlorothiazide 12.5 mg tablet 12.5 mg PO DAILY #90 tabs 01/28/23 ibuprofen 800 mg tablet 800 mg PO Q8H #90 tabs 01/28/23 Allergies Allergy/AdvReac Type Severity Reaction Status Date / Time lisinopril AdvReac Cough Verified 01/28/23 09:20 Review of Systems Review of Systems Pertinent positives and negatives as stated in HPI [facility] Past Medical History Source: nursing notes reviewed Medical History Asthma Surgical History History of surgery on arm Hx of cholecystectomy Social History Social History Household Members: Family Housing: House Alcohol intake: former Patient Tobacco Use Status: Former Tobacco user e-Cigarette/Vaping Use: Never Used Second Hand Smoke Exposure: No Advance Directives: No Advance Directives Information Provided: Yes service: No Current occupational status: employed Current occupation: works nights Current occupational exposures/hazards: No Physical Exam ED Vital Signs: Vital Signs - 24 hr 01/29/23 10:08 Temperature 97.8 F Pulse Rate 74 Respiratory Rate 20 Blood Pressure 166/118 H Pulse Oximetry 96 Oxygen Delivery Method Room Air BMI result Body Mass Index 49.6 VITAL SIGNS: Reviewed. GENERAL: Well developed, well nourished, in no acute distress. HEAD: Normocephalic/atraumatic EYES: PERRLA, EOMI EARS: Ext canals without abnormality LUNGS: Normal breath sounds. No adventitious sounds or accessory muscle use. SpO2<96>; CHEST WALL: ttp at rt lower rib, no hernia, no ecchymosis, no crepitus CARDIOVASCULAR: Regular rate and rhythm without noted murmurs ABDOMEN: Soft, non-tender, non-distended with bowel sounds. MUSCULOSKELETAL: No tenderness, deformities, or effusions noted on gross inspection. EXTREMITIES: No cyanosis, clubbing or edema. SKIN: Inspection of the skin reveals no rashes, ulcerations, jaundice, pallor, or petechiae. NEUROLOGIC: Alert and oriented x 4. Strength and sensation to light touch were grossly intact x 4. Medical Decision Making Medical Decision Making MDM Narrative: 52-year-old male who presents with chronic right-sided chest wall pain, no concerns for traumatic injury, no evidence of hernia, no evidence of infectious etiology. Patient provided with combination analgesics to include a lidocaine patch in was discharged home. Differential Diagnosis Please see the discussion above Lab Data Please see the discussion above Labs: Lab Results 01/29/23 Range/Units 10:25 Urine Color Yellow Urine Appearance Clear Urine pH 5.5 (5.0-9.0) Ur Specific [place] >= 1.030 H (1.005-1.025) Urine Protein Trace (Neg-Trace) mg/dL Urine Glucose (UA) Negative (Negative) mg/dL Urine Ketones Negative (Negative) mg/dL Urine Blood Negative (Negative) Urine Nitrite Negative (Negative) Ur Leukocyte Esterase Negative (Negative) External Record Review External record reviewed: Outpatient record, Prior outpatient labs and Prior outpatient radiology Chronic Conditions Patient?s care impacted by: Hypertension Discharge Plan Discharge Clinical Impression: Chest wall discomfort Patient Disposition: Home, Self-Care Instructions: Chest Wall Pain (ED) Additional Instructions: 1. Reanudar todos los medicamentos caseros seg?n lo prescrito. 2. Recomiende que gerald un seguimiento con Tylenol e ibuprofeno y que consulte a montanez proveedor de atenci?n primaria en los pr?ximos 1 o 2 d?as. Regrese a la westley de emergencias si los s?ntomas empeoran. 1. Resume all home medications as prescribed. 2. Please recommend that you follow-up with Tylenol and ibuprofen as well as see your primary care provider in the next 1-2 days. Return to the ER for any worsening symptoms. Prescriptions: No Action atorvastatin 40 mg tablet 40 mg PO BEDTIME Qty: 90 3RF coenzyme Q10 100 mg tablet 100 mg PO DAILY Qty: 90 3RF Stiolto Respimat 2.5-2.5 mcg/actuation mist 2 puff inhalation DAILY 30 Days Qty: 4 6RF albuterol sulfate [ProAir HFA] 90 mcg/actuation HFA aerosol inhaler 2 puff inhalation Q4-6H PRN (Reason: shortness of breath or wheezing) Qty: 8.5 8RF amlodipine [Norvasc] 10 mg tablet 10 mg PO DAILY Qty: 90 3RF hydrochlorothiazide 12.5 mg tablet 12.5 mg PO DAILY Qty: 90 3RF ibuprofen 800 mg tablet 800 mg PO Q8H Qty: 90 1RF Rx Instructions: always take with food or milk albuterol sulfate 1.25 mg/3 mL solution for nebulization 1.25 mg inhalation Q4H 30 Days Qty: 540 5RF (DME) blood pressure kit-extra large Kit See Rx Instructions .Route Qty: 1 0RF Rx Instructions: As directed miscellaneous medical supply Misc See Rx Instructions miscellaneous .COMPLEX Qty: 1 0RF Rx Instructions: air purifier for personal use as directed; pantoprazole 40 mg tablet,delayed release (DR/EC) 40 mg PO DAILY 30 Days Qty: 30 11RF docusate sodium [Colace] 100 mg capsule 200 mg PO BEDTIME Qty: 60 5RF polyethylene glycol 3350 [Miralax] 17 gram/dose powder 17 g PO DAILY Qty: 510 6RF Citrucel 500 mg tablet 500 mg PO BID Qty: 60 5RF Referrals: María Hubbard NP [Primary Care Provider] - Print Language: Maldivian
[2023-01-29 11:06] VITALS: BP 155/101; PULSE 67
[2023-01-29] MEDS: Acetaminophen 325 MG TABLET 975 MG PO (11:11)
[2023-01-29] MEDS: Lidocaine 4 % Patch ADH..PATCH 1 PATCH TRANSDERMA (11:12)
[2023-01-29] MEDS: Ibuprofen 400 MG TABLET PO (11:12)
[2023-01-29 11:17] VITALS: BP 172/86; PULSE 69
[2023-01-29 11:40] VITALS: BP 126/90; PULSE 62
--- NOTE | 2023-01-29 11:57 | PC.NURSE ---
this rn called tiller worker but pt refused to wait. he also refused discharge papers, left without signing papers
== END 2023-01-29 12:02 | disposition home or self-care (01) ==
PROVIDERS: Emergency Provider Student in an Organized Health Care Education/Training Program; PCP Hospitalist
DX: R07.89 Other chest pain (principal)
CPT/HCPCS: 81003; 99283

== ENCOUNTER → 2023-02-07 10:45 | Outpatient (BNVA) | payer OTHER, SELFPAY | PROVIDERS: PCP Hospitalist; Visit Provider Internal Medicine Pulmonary Disease | DX: J44.9 Chronic obstructive pulmonary disease, unspecified (principal) | CPT/HCPCS: 99212 ==

== ENCOUNTER 2023-02-27 08:55 | Emergency (ER) | payer OTHER, SELFPAY ==
--- NOTE | ~2023-02-27 | CT_ITS ---
EXAMINATION: CT HEAD WITHOUT CONTRAST CLINICAL INFORMATION: Headache x3 days. Hypertension. COMPARISON: None available. TECHNIQUE: Contiguous axial imaging was performed from the skull base to vertex without intravenous administration of contrast. This CT examination was performed using dose optimization techniques as appropriate, variously including the following: *Automated exposure control *Adjustment of mA and/or kV according to patient size (this includes techniques or standardized protocols for targeted exams where dose is matched to indication/reason for exam; i.e. extremities or head) *Use of iterative reconstruction technique DLP: 704 mGy-cm FINDINGS: There is no acute intra-axial, extra-axial bleed, masses or midline shift. There is no acute infarction evolution. There is no edema. The [place] to white matter differentiation is maintained. Bone windows reveal no calvarial abnormality. There is mild mucoperiosteal thickening right posterior ethmoid sinus. Rest of the paranasal sinuses are clear. CT/CT head/brain wo IV con IMPRESSION: No acute intracranial process seen. Right posterior ethmoid sinus inflammatory changes.
--- NOTE | ~2023-02-27 | XR_ITS ---
EXAMINATION: XR CHEST CLINICAL INFORMATION: Chest pain COMPARISON: 01/21/2023 TECHNIQUE: 2 views of the chest were obtained. FINDINGS: No significant abnormality is noted involving the heart, lungs, mediastinum, bony thorax or soft tissues. XR/XR chest 2V IMPRESSION: Unremarkable examination.
--- NOTE | 2023-02-27 08:57 | ECG_ITS ---
Test Reason : chest pain Blood Pressure : / mmHG Vent. Rate : 080 BPM Atrial Rate : 080 BPM P-R Int : 188 ms QRS Dur : 070 ms QT Int : 382 ms P-R-T Axes : 022 025 051 degrees QTc Int : 440 ms Normal sinus rhythm Normal ECG When compared with ECG of 09-JAN-2023 11:46, Nonspecific T wave abnormality, improved in Lateral leads Referred By: Generic ED Physician Electronically Signed By:MARKIE IVORY
[2023-02-27 09:24] VITALS: BP 173/110; PULSE 82; RESP 19; TEMP 36.6; O2SAT 98; BMI 44.6
--- NOTE | 2023-02-27 09:44 | ED.CHESTPAIN ---
HPI - Chest Pain General Chief Complaint: Chest Pain Stated Complaint: Head Pain Chest Pain X 3 Days Time Seen by Provider: 02/27/23 09:43 Source: patient and historic interpreter Mode of arrival: ambulatory Limitations: language barrier History of Present Illness HPI narrative: Patient is a 52-year-old male with history of HTN, high cholesterol, asthma presenting with 3 days of constant left anterior chest pain as well as headache. He reports both the chest pain and headache are currently an 8/10. He denies ?worst headache of his life? or worse at onset. He reports his headache has slightly improved from the previous 2 days. He denies any blurred vision, double vision, or any other visual changes. He does report that he has been urinating frequently at night. He denies any dizziness, lightheadedness, syncope. He denies any shortness of breath, cough, lower extremity edema. Denies any fevers. He denies any neck pain or stiffness. He denies any recent trauma or injury. He describes the headache as diffuse across his whole head. He denies radiation of his chest pain. He denies taking any [id number] medications for his symptoms. He denies any abdominal pain, nausea, vomiting, diarrhea, constipation. He states that his PCP is aware of his HTN, but has not made any adjustments to his medications. He sees his PCP on the . He also reports that his headaches seem to be exacerbated after using his asthma inhaler. MD complaint: chest pain Pertinent past history: asthma Onset (ago): day(s) Timing of current episode: constant Onset: during rest Pain location: left chest Pain radiation: none Severity: severe Pain scale (0-10): 8 Quality: aching Relieving factors: nothing Exacerbating factors: nothing Related Data Home Medications Medication Instructions Recorded Confirmed benzonatate 100 mg capsule 100 mg PO BID-TID PRN 01/30/23 Previous Rx's Medication Instructions Recorded docusate sodium 100 mg capsule 200 mg PO BEDTIME #60 caps 09/11/22 (Colace) methylcellulose (laxative) 500 mg 500 mg PO BID #60 tabs 09/11/22 tablet (Citrucel) polyethylene glycol 3350 17 17 g PO DAILY #510 grams 09/11/22 gram/dose oral powder (Miralax) atorvastatin 40 mg tablet 40 mg PO BEDTIME #90 tabs 11/20/22 blood pressure kit-extra large #1 ea 11/20/22 miscellaneous medical supply See Rx Instructions miscellaneous 11/20/22 .COMPLEX #1 ea amlodipine 10 mg tablet (Norvasc) 10 mg PO DAILY #90 tabs 01/28/23 hydrochlorothiazide 12.5 mg tablet 12.5 mg PO DAILY #90 tabs 01/28/23 Ventolin HFA 90 mcg/actuation 2 puff inhalation Q4-6H PRN 01/30/23 aerosol inhaler (albuterol sulfate) shortness of breath or wheezing #8 grams albuterol sulfate 1.25 mg/3 mL 1.25 mg (3 mL) inhalation Q4H 1 01/30/23 solution for nebulization month #540 mL ibuprofen 600 mg tablet 600 mg PO Q8H PRN pain #90 tabs 01/30/23 prednisone 10 mg tablet See Rx Instructions PO DAILY 9 02/07/23 days #18 tabs tiotropium 2.5 mcg-olodaterol 2.5 2 puff inhalation DAILY 30 days #4 02/07/23 mcg/actuation mist for inhalation grams (Stiolto Respimat) acetaminophen 325 mg capsule 650 mg PO Q6H PRN pain #30 caps 02/27/23 Allergies Allergy/AdvReac Type Severity Reaction Status Date / Time lisinopril AdvReac Cough Verified 02/27/23 09:23 Review of Systems Review of Systems: As per HPI. Yes all other systems are reviewed and are negative Constitutional: Constitutional: Reports no additional constitutional complaints Eyes: Eyes: Reports no additional eye complaints ENT: Reports system reviewed and no additional complaints, except as documented Cardiovascular: Cardiovascular: Reports no additional cardiovascular complaints and Reports dyspnea on exertion Respiratory: Respiratory: Reports dyspnea on exertion Gastrointestinal: Gastrointestinal: Reports no additional gastrointestinal complaints Genitourinary: Genitourinary: Reports no additional male genitourinary complaints Musculoskeletal: Musculoskeletal: Reports no additional musculoskeletal complaints Integumentary/Breasts: Skin/Breast: Reports system reviewed and no additional complaints, except as docu Neurologic: Reports system reviewed and no additional complaints, except as documented Psychiatric: Psychiatric: Reports no additional psychiatric complaints Endocrine: Endocrine: Reports no additional endocrine complaints Hematologic/Lymphatic: Hematologic/Lymphatic: Reports no additional hematologic/lymphatic complaints Allergic/Immunologic: Allergic/Immunologic: Reports no additional allergic/immunologic complaints PMFSH Past Medical History Medical History Asthma Surgical History History of surgery on arm Hx of cholecystectomy Social History Social History Household Members: Family Housing: House Alcohol intake: former Patient Tobacco Use Status: Former Tobacco user e-Cigarette/Vaping Use: Never Used Second Hand Smoke Exposure: No Advance Directives: No service: No Current occupational status: employed Current occupation: works nights Current occupational exposures/hazards: No Cognitive needs: No Hearing needs: No Vision needs: No Physical Exam Vital Signs: Vital Signs: Last Vital Signs Temp 98.2 F 02/27/23 12:17 Pulse 72 02/27/23 12:17 Resp 16 02/27/23 12:17 BP 135/97 H 02/27/23 12:17 Pulse Ox 96 02/27/23 12:17 O2 Del Method Room Air 02/27/23 12:17 BMI result Body Mass Index 44.6 Vital signs have been reviewed and appear to be correct. Blood pressure elevated. Heart rate normal. Respiratory rate normal. Temperature normal. Oxygen saturation normal. Const: General: cooperative, healthy appearing and no acute distress Orientation/consciousness: oriented to person, oriented to place, oriented to time and patient oriented x3 Limitations: no limitations HEENT: Head: Yes normocephalic and Yes atraumatic Ears: external ears normal General nose exam: Normal external nose present Face and sinus: Yes face symmetric Mouth: oropharynx normal and moist mucous membranes Throat: Yes uvula midline Eyes: Pupils: Equal, round and reactive pupils present Neck: Neck: Yes normal visual inspection and Yes supple Resp: Effort & Inspection: normal respiratory effort and able to speak in complete sentences Auscultation: clear to auscultation bilaterally Cardio: Rate: regular rate Rhythm: regular rhythm Heart sounds: S1 normal heart sound present and S2 normal heart sound present GI: Inspection: Yes obesity Palpation (GI): Firmness to palpation present (GI), nontender, no guarding and No Rebound tenderness present Auscultation: normoactive bowel sounds : General: Yes no CVA tenderness Back/Spine/Pelvis: Back: no CVA tenderness Skin: General skin exam: elasticity normal and turgor normal Neuro: General: oriented to person, oriented to place, oriented to time, patient oriented x3, moves all extremities, no focal motor deficits and CN's II-XI intact bilaterally Cranial nerves: Yes Equal, round and reactive pupils present Cognition (Neuro): normal cognition Extrem: General: Yes full ROM, Yes no pedal edema and Yes no calf tenderness Psych: Mental Status: mental status grossly normal Affect: normal affect Thought process: Normal thought process present Course Course Course Narrative: 10:31 FINDINGS: No significant abnormality is noted involving the heart, lungs, mediastinum, bony thorax or soft tissues. XR/XR chest 2V IMPRESSION: Unremarkable examination. Labs unchanged from baseline, UA positive only for protein. CXR unremarkable. Awaiting CT head. 11:45 FINDINGS: There is no acute intra-axial, extra-axial bleed, masses or midline shift. There is no acute infarction evolution. There is no edema. The [place] to white matter differentiation is maintained. Bone windows reveal no calvarial abnormality. There is mild mucoperiosteal thickening right posterior ethmoid sinus. Rest of the paranasal sinuses are clear. ? CT/CT head/brain wo IV con IMPRESSION: No acute intracranial process seen. ? Right posterior ethmoid sinus inflammatory changes. Will medicate with IM ketorolac and reassess. 13:14 patient reports that his chest pain has decreased to 6/10 and that his headache has decreased more than that. Feel patient is stable for discharge home at this time. All results discussed with patient, all questions answered. Instructed patient to follow-up with his PCP. Return precautions discussed at bedside. Patient verbalized understanding of an agreement with plan. Medications Administered Discontinued Medications Generic Name Dose Route Start Last Admin Trade Name Freq PRN Reason Stop Dose Admin Ketorolac Tromethamine 30 mg 02/27/23 11:44 02/27/23 12:45 Ketorolac Tromethamine 30 Mg/Ml Vial IM 02/27/23 11:45 30 mg ONCE ONE Administration Medical Decision Making Medical Decision Making [facility] Narrative: Patient is a 52-year-old male with history of HTN, high cholesterol, asthma presenting with 3 days of constant left anterior chest pain as well as headache. On exam patient is nontoxic appearing, awake, A+Ox3, in no acute distress, normal neurological exam without focal findings, head normocephalic and atraumatic, neck supple without meningismus, lungs CTA throughout, RRR. EKG does not show evidence of acute STEMI. Concern for ACS, pneumothorax, pneumonia, endocarditis Less likely PE (low risk [place]), aortic dissection, esophageal rupture, tamponade. Headache differential includes tension headache vs adverse reaction to albuterol. Presentation not consistent with acute ICH/SAH, acute APPLIQUE CUTTER infection to include meningitis or brain abscess, temporal arteritis/giant cell arteritis, acute angle closure glaucoma. Plan: EKG, labs, UA, CT head, chest x-ray, pain management, reassess Please refer to course for remaining clinical decision making. Differential Diagnosis Differential Diagnoses: The differential diagnosis associated with the presentation includes As above Admission/Observation Consideration of admission/observation: Escalation of care including admission/observation considered Lab Data MDM Lab Attestation statement: I reviewed the patient's lab results. 02/27/23 09:59 02/27/23 09:59 Labs: Lab Results 02/27/23 02/27/23 02/27/23 Range/Units 09:59 09:59 09:59 WBC 9.6 (4.8-10.8) X10*3/uL RBC 5.76 (4.60-5.80) X10*6/uL Hgb 14.5 (14.0-18.0) g/dl Hct 45.0 (42.0-52.0) % MCV 78.1 L (80.0-98.0) fL MCH 25.2 L (27.0-33.0) pg MCHC 32.2 (31.0-36.0) g/dl RDW 15.8 (11.0-16.0) % Plt Count 318 (160-400) X10*3/uL MPV 8.8 L (9.4-12.4) fL Immature Gran % (Auto) 1.2 H (0.0-0.4) % Neut % (Auto) 62.4 (45-73) % Lymph % (Auto) 24.9 (20-40) % [place] % (Auto) 7.9 (2-11) % Eos % (Auto) 3.0 (0-4) % Baso % (Auto) 0.6 (0-2) % Lymph # (Auto) 2.4 (1.2-4.9) X10*3/uL [place] # (Auto) 0.8 (0.1-1.2) X10*3/uL Eos # (Auto) 0.3 (0.0-0.4) X10*3/uL Baso # (Auto) 0.1 (0.0-0.2) X10*3/uL Abs Immat Gran (auto) 0.12 H (0.00-0.03) X10*3/uL Absolute Neuts (auto) 6.0 (2.0-8.3) x10*3/uL Absolute Nucleated RBC 0.000 (0.0-0.012) X10*3/uL Nucleated RBC % (auto) 0.0 (0.0-0.2) /100WBC Sodium 139 (135-145) mmol/L Potassium 4.0 (3.3-5.1) mmol/L Chloride 107 (96-108) mmol/L Carbon Dioxide 24 (22-29) mmol/L Anion Gap 12 (12-20) BUN 15 (9-16) mg/dL Creatinine 0.87 (0.5-1.4) mg/dL Estim Creat Clear Calc 113.4 Estimated GFR > 60 Random Glucose 112 (60-115) mg/dL Calcium 9.6 (8.4-10.2) mg/dL Troponin I High Sens (<3.5-35.0) ng/L B-Natriuretic Peptide < 10 (<100) pg/mL Urine Color Urine Appearance Urine pH (5.0-9.0) Ur Specific [place] (1.005-1.025) Urine Protein (Neg-Trace) mg/dL Urine Glucose (UA) (Negative) mg/dL Urine Ketones (Negative) mg/dL Urine Blood (Negative) Urine Nitrite (Negative) Ur Leukocyte Esterase (Negative) COVID-19 (DOMINGA) (Negative) COVID-19 Clin Com 02/27/23 02/27/23 02/27/23 Range/Units 09:59 10:40 10:51 WBC (4.8-10.8) X10*3/uL RBC (4.60-5.80) X10*6/uL Hgb (14.0-18.0) g/dl Hct (42.0-52.0) % MCV (80.0-98.0) fL MCH (27.0-33.0) pg MCHC (31.0-36.0) g/dl RDW (11.0-16.0) % Plt Count (160-400) X10*3/uL MPV (9.4-12.4) fL Immature Gran % (Auto) (0.0-0.4) % Neut % (Auto) (45-73) % Lymph % (Auto) (20-40) % [place] % (Auto) (2-11) % Eos % (Auto) (0-4) % Baso % (Auto) (0-2) % Lymph # (Auto) (1.2-4.9) X10*3/uL [place] # (Auto) (0.1-1.2) X10*3/uL Eos # (Auto) (0.0-0.4) X10*3/uL Baso # (Auto) (0.0-0.2) X10*3/uL Abs Immat Gran (auto) (0.00-0.03) X10*3/uL Absolute Neuts (auto) (2.0-8.3) x10*3/uL Absolute Nucleated RBC (0.0-0.012) X10*3/uL Nucleated RBC % (auto) (0.0-0.2) /100WBC Sodium (135-145) mmol/L Potassium (3.3-5.1) mmol/L Chloride (96-108) mmol/L Carbon Dioxide (22-29) mmol/L Anion Gap (12-20) BUN (9-16) mg/dL Creatinine (0.5-1.4) mg/dL Estim Creat Clear Calc Estimated GFR Random Glucose (60-115) mg/dL Calcium (8.4-10.2) mg/dL Troponin I High Sens 3.4 (<3.5-35.0) ng/L B-Natriuretic Peptide (<100) pg/mL Urine Color Yellow Urine Appearance Clear Urine pH 5.0 (5.0-9.0) Ur Specific [place] 1.015 (1.005-1.025) Urine Protein Negative (Neg-Trace) mg/dL Urine Glucose (UA) Negative (Negative) mg/dL Urine Ketones Negative (Negative) mg/dL Urine Blood Negative (Negative) Urine Nitrite Negative (Negative) Ur Leukocyte Esterase Negative (Negative) COVID-19 (DOMINGA) Negative (Negative) COVID-19 Clin Com See Note Independent Interpretation I performed an independent interpretation of an: EKG and Plain X-Ray Interpretation: EKG: normal sinus rhythm, rate 80bpm, normal RI/QT intervals, no evidence of STEMI; I independently reviewed the x-ray and CT scan and agree with the radiologist's interpretation. Radiology Impression Discussion of test interpretation with radiology: I have reviewed the radiologist's reading. Radiologist Impression: FINDINGS: There is no acute intra-axial, extra-axial bleed, masses or midline shift. There is no acute infarction evolution. There is no edema. The [place] to white matter differentiation is maintained. Bone windows reveal no calvarial abnormality. There is mild mucoperiosteal thickening right posterior ethmoid sinus. Rest of the paranasal sinuses are clear. ? CT/CT head/brain wo IV con IMPRESSION: No acute intracranial process seen. ? Right posterior ethmoid sinus inflammatory changes. FINDINGS: No significant abnormality is noted involving the heart, lungs, mediastinum, bony thorax or soft tissues. XR/XR chest 2V IMPRESSION: Unremarkable examination. External Record Review External record reviewed: Inpatient record, Office record and Outpatient record Prescription Management I considered prescription management with: Pain Medication Chronic Conditions Patient?s care impacted by: Hypertension Discharge Plan Discharge Clinical Impression: Headache, Chest pain Patient Disposition: Home, Self-Care Instructions: Chest Pain (ED), Acute Headache (DC) Additional Instructions: You were evaluated in the emergency department today for chest pain and headache. Your evaluation has shown no signs of medical conditions requiring emergent intervention at this time, however we recommend that you follow-up with your primary care physician or your mobile engineer as soon as possible for further testing as an outpatient. Please schedule an appointment for follow-up with your primary care physician as soon as possible. Return to the emergency department if you experience worsening or uncontrolled chest pain, shortness of breath, lightheadedness, feeling faint, loss of consciousness, nausea, vomiting, changes in vision, difficulty with normal activities, abnormal behavior, difficulty walking, numbness, weakness or any other concerning symptoms. Prescriptions: New acetaminophen 325 mg capsule 650 mg PO Q6H PRN (Reason: pain) Qty: 30 0RF No Action atorvastatin 40 mg tablet 40 mg PO BEDTIME Qty: 90 3RF albuterol sulfate 1.25 mg/3 mL solution for nebulization 1.25 mg inhalation Q4H 30 Days Qty: 540 5RF albuterol sulfate [Ventolin HFA] 90 mcg/actuation HFA aerosol inhaler 2 puff inhalation Q4-6H PRN (Reason: shortness of breath or wheezing) Qty: 8 5RF amlodipine [Norvasc] 10 mg tablet 10 mg PO DAILY Qty: 90 3RF hydrochlorothiazide 12.5 mg tablet 12.5 mg PO DAILY Qty: 90 3RF (DME) blood pressure kit-extra large Kit See Rx Instructions .Route Qty: 1 0RF Rx Instructions: As directed miscellaneous medical supply Misc See Rx Instructions miscellaneous .COMPLEX Qty: 1 0RF Rx Instructions: air purifier for personal use as directed; benzonatate 100 mg capsule 100 mg PO BID-TID PRN ibuprofen 600 mg tablet 600 mg PO Q8H PRN (Reason: pain) Qty: 90 1RF docusate sodium [Colace] 100 mg capsule 200 mg PO BEDTIME Qty: 60 5RF polyethylene glycol 3350 [Miralax] 17 gram/dose powder 17 g PO DAILY Qty: 510 6RF Citrucel 500 mg tablet 500 mg PO BID Qty: 60 5RF prednisone 10 mg tablet See Rx Instructions PO DAILY 9 Days Qty: 18 0RF Rx Instructions: Take 3 tabs daily for 3 days, then go down by 1 tab every 3 days. Stiolto Respimat 2.5-2.5 mcg/actuation mist 2 puff inhalation DAILY 30 Days Qty: 4 6RF Print Language: [place]
[2023-02-27 10:05] LABS: MANUAL DIFF FLAG NO
[2023-02-27 10:06] LABS: Basophils Absolute Auto 0.1 X10*3/uL (0.0-0.2); Basophils Percent Auto 0.6 % (0-2); Eosinophils Absolute Auto 0.3 X10*3/uL (0.0-0.4); Hemoglobin 14.5 g/dl (14.0-18.0); Imm Gran Abs Auto 0.12 X10*3/uL (0.00-0.03); Imm Gran Pct Auto 1.2 % (0.0-0.4); Lymphocytes Absolute Auto 2.4 X10*3/uL (1.2-4.9); Lymphocytes Percent Auto 24.9 % (20-40); Mean Corpuscular HGB Conc 32.2 g/dl (31.0-36.0); Mean Corpuscular Hemoglobin 25.2 pg (27.0-33.0); Mean Corpuscular Volume 78.1 fL (80.0-98.0); Mean Platelet Volume 8.8 fL (9.4-12.4); Monocytes Absolute Auto 0.8 X10*3/uL (0.1-1.2); Monocytes Percent Auto 7.9 % (2-11); Neutrophils Percent Auto 62.4 % (45-73); Platelet Count 318 X10*3/uL (160-400); Red Blood Count 5.76 X10*6/uL (4.60-5.80); Red Cell Distribution Width 15.8 % (11.0-16.0); White Blood Count 9.6 X10*3/uL (4.8-10.8)
[2023-02-27 10:26] LABS: Anion Gap 12 (12-20); Blood Urea Nitrogen 15 mg/dL (9-16); Calcium 9.6 mg/dL (8.4-10.2); Carbon Dioxide 24 mmol/L (22-29); Chloride 107 mmol/L (96-108); Creatinine Clr Calc Pharmacy 113.4; Estimated Glomerular Filt Rate > 60; Glucose Random 112 mg/dL (60-115); Sodium 139 mmol/L (135-145)
[2023-02-27 10:32] LABS: B Type Natriuretic Peptide < 10 pg/mL (<100); Troponin-I High Sensitivity 3.4 ng/L (<3.5-35.0)
[2023-02-27 10:57] LABS: Appearance Urine Clear; Color Urine Yellow; Glucose Urine UA Negative (Negative); Leukocyte Esterase Urine Negative (Negative); Nitrite Urine Negative (Negative); Specific Gravity - Urine 1.015 (1.005-1.025); Urine Blood Negative (Negative); Urine Ketones Negative (Negative); Urine Protein Negative (Neg-Trace)
[2023-02-27 11:19] LABS: COVID-19 Test Negative (Negative); IDNOW Serial# BCCEAD1C
[2023-02-27 12:17] VITALS: BP 135/97; PULSE 72; RESP 16; TEMP 36.8; O2SAT 96
[2023-02-27] MEDS: Ketorolac Tromethamine 30 MG/ML VIAL IM (12:45)
== END 2023-02-27 14:07 | disposition home or self-care (01) ==
PROVIDERS: Registered Nurse Emergency; Emergency Provider Emergency Medicine Emergency Medical Services; PCP Hospitalist
DX: R51.9 Headache, unspecified (principal); R07.9 Chest pain, unspecified; R06.00 Dyspnea, unspecified; Z20.822 Contact with and (suspected) exposure to COVID-19; I10 Essential (primary) hypertension; E78.5 Hyperlipidemia, unspecified; Z79.02 Long term (current) use of antithrombotics/antiplatelets; Z79.899 Other long term (current) drug therapy; Z87.891 Personal history of nicotine dependence
CPT/HCPCS: 36415; 70450; 71046; 80048; 81003; 83880; 84484; 85025; 87635; 93005; 96372; 99284; J1885

== ENCOUNTER → 2023-04-11 10:31 | Outpatient (BNVA) | payer OTHER, SELFPAY | PROVIDERS: PCP Hospitalist; Visit Provider Internal Medicine Pulmonary Disease | DX: J44.9 Chronic obstructive pulmonary disease, unspecified (principal) | CPT/HCPCS: 99212 ==

== ENCOUNTER 2023-05-31 14:40 | Outpatient (AMB) | payer OTHER, SELFPAY ==
--- NOTE | 2023-05-31 14:45 | MHC.PC.OV ---
Vital Signs 05/31/23 14:51 Height 5 ft 3 in Weight 265 lb 8 oz BMI 47.0 BP 132/80 Blood Pressure Location Lt brachial Position Sitting Respiration 12 Pulse 74 Pulse Source Pulse Oximeter Temp 97.8 F Temp Source Temporal Artery Scan Pulse Oximetry (%) 98 Oxygen Delivery Method Room Air Intake Visit Reasons: f/u asthma and HTN Intake Note: Patient states that his asthma has been acting up lately. Patient states that he has pain in his left ear and put drops that were sent to him in his ear and it only helped a little bit. Patient states that he can hear a little bit out his ear. Patient is interested in getting pills to help him sleep. Patient states that hes been experiencing diarhhea. Patient states that hes concern that hes been using the bathroom too much. 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: Yes Medical Or Surgical Instrument Maker Name: Kenneth ([id number]) Accompanied by: Self / Same As Patient Allergies lisinopril Adverse Reaction (Verified 05/31/23 15:05) Cough Tobacco use date assessed: 01/28/23 Dental Screening Dental Screen Date: 05/31/23 Did you have a dental visit in the last 12 months?: Yes Did you have a dental problem in the last 6 months where you did not have access to dental care?: No Was dental information given to patient?: Patient has dentist HPI HPI Comments History of Present Illness Details 52-year-old English speaking male presents for asthma and hypertension follow-up. He notes that he has been taking his medications as prescribed. He states his left ear has been clogged for the past 2 weeks. He reports sleep disturbance, he wakes up at 2 am and finds it difficult to fall back asleep. He attributes his sleep issues to history of working night shifts for six months. He states he has been unable to regulate his sleep since his employment was terminated 4 months ago. He notes he has been taking Panadol PM for sleep with improved sleep. He requests sleep aid. He is on atorvastatin for hyperlipidemia. His last lipid panel blood work was on 11/20/2022; triglycerides, cholesterol, and LDL were elevated; HDL was normal. [facility] Medical History (Updated 05/31/23 @ 15:40 by Mariaelena Doe CNP) Asthma Surgical History History of surgery on arm Hx of cholecystectomy Family History (Updated 05/31/23 @ 15:15 by Megan Cohen MA) Other Substance abuse Social History Household Members: Family Housing: House Alcohol intake: former Patient Tobacco Use Status: Former Tobacco user e-Cigarette/Vaping Use: Never Used Second Hand Smoke Exposure: No service: No Current occupational status: employed and unemployed Current occupation: works nights Current occupational exposures/hazards: No Cognitive needs: No Hearing needs: Yes Vision needs: Yes Questionnaire Thrive Questionnaire Date Thrive assessed: 11/20/22 DENISHA-7 AMB Questionnaire DENISHA-7 Date DENISHA - 7 assessed: 11/20/22 Source: Developed by Drs. Amauri Pandya, Roselyn Jeong, Nigel Posada and colleagues, with an educational beatrice from [employer]. ACT Questionnaire In the past 4 weeks, how much of the time did your asthma keep you from getting as much done at work, school or at home?: None of the time During the past 4 weeks, how often have you had shortness of breath?: Not at all During the past 4 weeks, how often did your asthma symptoms wake you up at night or earlier than usual in the morning?: Not at all During the past 4 weeks, how often have you had to use your rescue inhaler or nebulizer medication?: Not at all How would you rate your asthma control during the past 4 weeks?: Well controlled ACT Interpretation: Negative Score: 24 Review of Systems Const Details: Const Denies chills, Denies fatigue, Denies fever(s), Denies headache(s) and Denies weakness ENT Reports left clogged ear, Denies dizziness and Denies headache(s) Card Denies chest pain, Denies lightheadedness, Denies dyspnea and Denies other (Palpitations) Resp Denies cough, Denies dyspnea, Denies wheezing and Denies other ( shortness of breath) GI Denies abdominal pain, Denies melena, Denies hematochezia, Denies change in bowel habits, Denies dyspepsia and Denies nausea Denies hematuria and Denies dysuria Musc Denies abnormal gait, Denies myalgias, Denies arthralgias, Denies numbness and Denies tingling Skin/Breast Denies rash, Denies unusual bruising and Denies wounds Neuro Denies abnormal gait, Denies dizziness, Denies headache(s), Denies memory loss, Denies numbness, Denies Sensory deficit (Neuro), Denies tingling and Denies weakness Psych Denies anxiety, Denies depression, Denies memory loss Endo Denies cold intolerance, Denies fatigue, Denies heat intolerance, Denies polydipsia and Denies polyuria Aller/Immun Denies wheezing Physical exam (Primary Care) Vital Signs: Last Vital Signs Temp 97.8 F 05/31/23 14:51 Pulse 74 05/31/23 14:51 Resp 12 05/31/23 14:51 BP 132/80 05/31/23 14:51 Pulse Ox 98 05/31/23 14:51 Oxygen Delivery Method Room Air 05/31/23 14:51 BMI result Body Mass Index 47.0 Tobacco/Smoking Status: Tobacco use Status Tobacco use date assessed 01/28/23 05/31/23 14:47 Patient Tobacco Use Status Former Tobacco user 05/31/23 14:47 e-Cigarette/Vaping Use Never Used 05/31/23 14:47 Thrive Assessment: Date of Thrive Assessment Date Thrive assessed 11/20/22 05/31/23 14:47 Const Other: General: no acute distress and well developed Nutritional Appearance: well nourished Orientation/consciousness: patient oriented x3 HENMT Head: Yes normocephalic and Yes atraumatic Impacted cerumen of the left ear, occluding the left TM. Right ear canal and TM is normal Eyes General: appearance normal, both eyes and all related structures Pupils: Equal, round and reactive pupils present EOM: EOMs intact bilaterally Resp Effort & Inspection: normal respiratory effort Auscultation: clear to auscultation bilaterally Cardio Rate: regular rate Rhythm: regular rhythm Heart sounds: S1 normal heart sound present, S2 normal heart sound present, no gallops, no murmurs and no rubs GI Palpation (GI): No Abdominal aortic bruit present, Soft to palpation, nontender, No hepatosplenomegaly present and No Rebound tenderness present Auscultation: normal bowel sounds General: Yes no CVA tenderness Back/Spine/Pelvis Back: no CVA tenderness Cervical Spine: cervical ROM normal and No Cervical spine tenderness Thoracic/Lumbar Spine: thoraco-lumbar ROM normal, No pain with thoraco-lumbar ROM, No thoracic spinal tenderness and No lumbar spinal tenderness Extrem General: Yes normal to inspection, No edema and No calf tenderness Skin General: warm and dry. Normal skin color. Normal skin turgor Lesions: no lesions Rashes: no rashes Trauma: no lacerations or abrasions Wounds: no wounds Nails: normal Neuro General: patient oriented x3, gait normal and no focal neuro deficit Cranial nerves: Yes Equal, round and reactive pupils present Cognition (Neuro): normal cognition Gait exam (Neuro): Normal gait present Sensory Exam: No Sensory deficit (Neuro) Psych Appearance: grossly normal Affect: normal affect Attitude: cooperative Thought process: Normal thought process present Assessment and Plan Assessment & Plan (1) HTN, goal below 130/80: Code(s): I10 - Essential (primary) hypertension Plan: Blood pressure is 132/80, slightly above goal of 130/80 Continue with current treatment regimen Low-sodium diet encouraged Follow-up with PCP in 3 months Return sooner with symptoms or concerns Verbalized understanding and agreed with treatment plan. (2) Asthma: Code(s): J45.909 - Unspecified asthma, uncomplicated Plan: Will control asthma. ACT score is 25 Continue with current treatment regimen Follow-up with symptoms or concerns Verbalized understanding and agreed with treatment plan. (3) High cholesterol: Code(s): E78.00 - Pure hypercholesterolemia, unspecified Plan: He is on atorvastatin for hyperlipidemia. His last lipid panel blood work was on 11/20/2022; triglycerides, cholesterol, and LDL were elevated; HDL was normal. Lipid panel ordered. Advised to fast for 10-12 hours and get blood work done before next visit. Follow-up with PCP in 3 months Verbalized understanding and agreed with treatment plan. (4) Impacted cerumen, left ear: Code(s): H61.22 - Impacted cerumen, left ear Plan: He states his left ear has been clogged for the past 2 weeks. Impacted cerumen of the left ear, occluding the left TM. Right ear canal and TM is normal Left ear irrigated with significant amount of cerumen removed. Normal left ear canal and TM Patient reports significant hearing improvement after cerumen removal Advised to follow-up as needed Verbalized understanding and agreed with plan. (5) Sleep disturbance: Code(s): G47.9 - Sleep disorder, unspecified Plan: Reports sleep disturbance, he wakes up at 2 am and finds it difficult to fall back asleep. He attributes his sleep issues to history of working night shifts for six months. He states he has been unable to regulate his sleep since his employment was terminated 4 months ago. He notes he has been taking Panadol PM for sleep with improved sleep. He requests sleep aid. Melatonin ordered. Take as prescribed Routine exercise encouraged Instructed on sleep hygiene Follow-up with worsening or new symptoms Verbalized understanding and agreed with treatment plan. Medications: New melatonin 3 mg PO BEDTIME 30 days PRN 30 caps 2RF sleep Coding Level of Care Code Est Pt Level 4 (01238) Diagnoses HTN, goal below 130/80 I10 Asthma J45.909 High cholesterol E78.00 Impacted cerumen, left ear H61.22 Sleep disturbance G47.9
[2023-05-31 14:51] VITALS: BP 132/80; PULSE 74; RESP 12; TEMP 36.6; O2SAT 98; BMI 47.0
== END 2023-05-31 16:06 | disposition home or self-care (01) ==
PROVIDERS: PCP Hospitalist; Visit Provider Nurse Practitioner Family
DX: I10 Essential (primary) hypertension (principal); J45.909 Unspecified asthma, uncomplicated; E78.00 Pure hypercholesterolemia, unspecified; H61.22 Impacted cerumen, left ear; G47.9 Sleep disorder, unspecified
CPT/HCPCS: 99214

== ENCOUNTER 2023-07-01 11:43 | Emergency (ER) | payer OTHER, SELFPAY ==
--- NOTE | ~2023-07-01 | XR_ITS ---
EXAMINATION: XR CHEST CLINICAL INFORMATION: Right-sided lower chest pain COMPARISON: Chest 02/27/2023 TECHNIQUE: Frontal view of the chest was obtained. 1654. FINDINGS: No significant abnormality is noted involving the heart, lungs, mediastinum or soft tissues. Healed right lower rib fractures are seen. XR/XR chest 1V IMPRESSION: No acute cardiopulmonary disease.
--- NOTE | ~2023-07-01 | US_ITS ---
EXAMINATION: US DIAGNOSTIC ULTRASOUND BREAST, RIGHT CLINICAL INFORMATION: Tenderness. Lump under nipple. Concern for abscess or cyst.. COMPARISON: None available. TECHNIQUE: Targeted ultrasound of the right breast at area of pain is performed with real-time oconnor scale imaging and color Doppler. FINDINGS: There is no focal suspicious finding. There is no solid mass, architectural abnormality, duct ectasia, or edema in the soft tissue planes. There is an anechoic 3 x 2 x 5 mm cyst in the retroareolar region. Results are discussed with the patient at time of visit. US/US breast RT limited IMPRESSION: No suspicious findings. ASSESSMENT: BI-RADS 2: Benign RECOMMENDATION: 1. Patient should be managed based on the clinical impression. Decision to proceed with biopsy should be based on clinical grounds and degree of clinical concern. 2. Otherwise, routine annual screening mammography.
--- NOTE | 2023-07-01 12:26 | ED.GENADULT ---
HPI - General Adult General Chief complaint: General Medical Stated complaint: Lump R nipple Time Seen by Provider: 07/01/23 16:01 Source: patient Mode of arrival: ambulatory Limitations: no limitations History of Present Illness HPI narrative: 52-year-old male presents to the ED for right nipple pain for the past 3 weeks. Patient states painful lump on the right nipple. Patient denies any recent trauma to the area, redness, pus discharge, P Sanchez, pleurisy, coughing up blood, fever, chills, leg swelling, calf pain, recent long travel, or recent surgery. Patient states no chest pain. Related Data Previous Rx's Medication Instructions Recorded docusate sodium 100 mg capsule 200 mg (2 x 100 mg) PO BEDTIME #60 09/11/22 (Colace) caps atorvastatin 40 mg tablet 40 mg PO BEDTIME #90 tabs 11/20/22 blood pressure kit-extra large #1 ea 11/20/22 miscellaneous medical supply See Rx Instructions miscellaneous 11/20/22 .COMPLEX #1 ea amlodipine 10 mg tablet (Norvasc) 10 mg PO DAILY #90 tabs 01/28/23 hydrochlorothiazide 12.5 mg tablet 12.5 mg PO DAILY #90 tabs 01/28/23 Ventolin HFA 90 mcg/actuation 2 puff inhalation Q4-6H PRN 01/30/23 aerosol inhaler (albuterol sulfate) shortness of breath or wheezing #8 grams albuterol sulfate 1.25 mg/3 mL 1.25 mg (3 mL) inhalation Q4H 1 01/30/23 solution for nebulization month #540 mL umeclidinium 62.5 mcg-vilanterol 1 inh inhalation DAILY 30 days #1 02/27/23 25 mcg/actuation powdr for ea inhalation (Anoro Ellipta) melatonin 3 mg capsule 3 mg PO BEDTIME PRN sleep 30 days 05/31/23 #30 caps Allergies Allergy/AdvReac Type Severity Reaction Status Date / Time lisinopril AdvReac Cough Verified 05/31/23 15:05 Review of Systems Review of Systems: right nipple lump pain Yes all other systems are reviewed and are negative FOR[facility]LY [facility], [facility] Past Medical History Medical History (Updated 07/02/23 @ 00:00 by Background Daemon) Impacted cerumen, left ear Low back strain Morbid obesity Pre-op evaluation Elevated blood pressure reading Infected tooth Normal physical exam Asthma, mild intermittent, poorly controlled Poor historian Asthma attacks lasting more than 24 hours Left upper quadrant abdominal pain Asthma Surgical History History of surgery on arm Hx of cholecystectomy Family History Family History (Updated 05/31/23 @ 15:15 by Megan Cohen MA) Other Substance abuse Social History Social History Household Members: Family Housing: House Alcohol intake: former Patient Tobacco Use Status: Former Tobacco user e-Cigarette/Vaping Use: Never Used Second Hand Smoke Exposure: No service: No Current occupational status: employed and unemployed Current occupation: works nights Current occupational exposures/hazards: No Cognitive needs: No Hearing needs: Yes Vision needs: Yes Physical Exam ED Vital Signs: Vital Signs - 24 hr 07/01/23 18:07 Temperature 97.2 F Pulse Rate 65 Respiratory Rate 16 Blood Pressure 137/73 Pulse Oximetry 98 Oxygen Delivery Method Room Air BMI result Body Mass Index 46.9 Const General: cooperative, healthy appearing, comfortable, no acute distress, well developed, alert, awake and Physically active Orientation/consciousness: oriented to person, oriented to place, oriented to time and patient oriented x3 HENMT Head: Yes normal to inspection, Yes No palpable skull fracture present, Yes normocephalic, Yes atraumatic and No abrasion Eyes General: appearance normal, both eyes and all related structures Neck Neck: Yes normal visual inspection, Yes full ROM, Yes no lymphadenopathy, Yes no meningeal signs, Yes trachea midline, Yes supple, No anterior neck swelling and No tender Chest Chest palpation & inspection: normal inspection of the chest and normal palpation of entire chest wall Chest/axillae images: 1. significant tenderness on palpation. Possible mass on palpation. Negative for any erythema, warmth, ecchymosis, rash, foul odor, or drainage. Negative for any right axilla lymphadenopathy. Resp Effort & Inspection: normal respiratory effort and able to speak in complete sentences Auscultation: clear to auscultation bilaterally Cardio Jugular venous distension: no JVD Heart sounds: S1 normal heart sound present and S2 normal heart sound present GI Inspection: Yes normal to inspection and No abdominal wall ecchymosis Palpation (GI): Soft to palpation, not firm, nontender, no guarding and not rigid General: No CVA tenderness and Yes no CVA tenderness Back/Spine/Pelvis Back: no CVA tenderness, No CVA tenderness and No back tenderness Skin General skin exam: no rashes or lesions noted, elasticity normal and turgor normal Neuro General: oriented to person, oriented to place, oriented to time, patient oriented x3, gait normal, tone normal, moves all extremities, Normal light touch and pain sensation, no meningeal signs, no focal motor deficits, CN's II-XI intact bilaterally and normal sensation to monofilament Extrem General: Yes normal to inspection and Yes full ROM Psych Appearance: grossly normal, well kempt and not disheveled Course Course Course Narrative: RME performed by Esthela Obando PA-C. Patient is a 52 year old assigned male at , [place] speaking only, presenting to the emergency department with right pectoral pain with a lump near his right nipple. Patient placed back in the waiting room pending room availability. Medical Decision Making Medical Decision Making MDM Narrative: 52-year-old male presents to the ED for eye nipple pain with lump for the past couple weeks. Patient denies any trauma, pleurisy, chest pain, fever, chills, coughing up blood, leg swelling, calf pain or any rash. Patient denies any piercing. 6:43pm: chest x-ray came back normal. Ultrasound of right breast/ chest positive for cyst under nipple which explains pain. Patient informed to follow-up with surgeon. Differential Diagnosis Differential Diagnoses: The differential diagnosis associated with the presentation includes Independent Interpretation I performed an independent interpretation of an: Plain X-Ray and Ultrasound Radiology Impression Discussion of test interpretation with radiology: I have reviewed the radiologist's reading. External Record Review External record reviewed: Other (Prior ED visit) Discharge Plan Discharge Clinical Impression: Cyst (solitary) of breast, Epidermoid cyst of skin of chest Patient Disposition: Home, Self-Care Instructions: Breast Mass (ED), Epidermal Inclusion Cysts (ED) Additional Instructions: La ecograf?a mamaria muestra un quiste debajo del pez?n que causa dolor. Necesita seguimiento con el cirujano. Regrese al servicio de urgencias si el dolor empeora, enrojecimiento, secreci?n del pez?n, aumento del dariel?o del bulto, fiebre, escalofr?os, dolor en el pecho, dificultad para respirar, sudoraci?n, pleures?a, tos con marcella, hinchaz?n de las piernas, dolor en la pantorrilla o cualquier otro s?ntoma preocupante. Prescriptions: No Action atorvastatin 40 mg tablet 40 mg PO BEDTIME Qty: 90 3RF albuterol sulfate 1.25 mg/3 mL solution for nebulization 1.25 mg inhalation Q4H 30 Days Qty: 540 5RF albuterol sulfate [Ventolin HFA] 90 mcg/actuation HFA aerosol inhaler 2 puff inhalation Q4-6H PRN (Reason: shortness of breath or wheezing) Qty: 8 5RF Anoro Ellipta 62.5-25 mcg/actuation blister with device 1 inh inhalation DAILY 30 Days Qty: 1 6RF amlodipine [Norvasc] 10 mg tablet 10 mg PO DAILY Qty: 90 3RF hydrochlorothiazide 12.5 mg tablet 12.5 mg PO DAILY Qty: 90 3RF melatonin 3 mg capsule 3 mg PO BEDTIME PRN (Reason: sleep) 30 Days Qty: 30 2RF (DME) blood pressure kit-extra large Kit See Rx Instructions .Route Qty: 1 0RF Rx Instructions: As directed miscellaneous medical supply Misc See Rx Instructions miscellaneous .COMPLEX Qty: 1 0RF Rx Instructions: air purifier for personal use as directed; docusate sodium [Colace] 100 mg capsule 200 mg PO BEDTIME Qty: 60 5RF Referrals: [facility] [place] General Surgeons [Provider Group] ( cyst on the right nipple on breast ultrasound) Interventions: ED Discharge Assessment Last Done: 07/01/23 19:05 Discharge Date/Time: 07/01/23 19:06 Print Language: [place]
[2023-07-01 12:27] VITALS: BP 150/101; PULSE 83; RESP 16; TEMP 36.6; O2SAT 94; BMI 46.9
[2023-07-01 18:07] VITALS: BP 137/73; PULSE 65; RESP 16; TEMP 36.2; O2SAT 98
== END 2023-07-01 19:06 | disposition home or self-care (01) ==
PROVIDERS: Emergency Provider Emergency Medicine
DX: N60.01 Solitary cyst of right breast (principal); N60.81 Other benign mammary dysplasias of right breast; E66.01 Morbid (severe) obesity due to excess calories; Z68.42 Body mass index [BMI] 45.0-49.9, adult; Z87.891 Personal history of nicotine dependence; Z79.899 Other long term (current) drug therapy
CPT/HCPCS: 71045; 76642; 99284

== ENCOUNTER 2023-07-08 09:24 | Outpatient (REF) | payer OTHER, SELFPAY ==
--- NOTE | ~2023-07-08 | US_ITS ---
PROCEDURE: ULTRASOUND-GUIDED RIGHT BREAST CYST ASPIRATION CLINICAL INFORMATION: 52-year-old male patient complaining of retroareolar right breast pain, upon emergency room visit and ultrasound dated 07/01/2023 was found to have a small oval anechoic retroareolar cyst measuring 3 x 2 x 5 mm in the region of pain. There are were associated signs of mastoiditis or infection. Patient now presents for aspiration of retroareolar cyst on the right. COMPARISON: 07/01/2023 ultrasound right breast. TECHNIQUE: Targeted right breast ultrasound was performed, and identified a similar anechoic tubular shaped 5 millimeter retroareolar cyst in the region of tenderness. On visual inspection, no signs of mastitis or redness. Patient was tender to palpation only over the nipple region. On gross inspection, both nipples appeared symmetric in size and appearance. INFORMED CONSENT: After the details of the procedure, as well as the risks (including, but not limited to, bleeding, hematoma formation and infection), benefits and alternatives to the procedure were explained to the patient in detail and all of his questions were answered, written informed consent was obtained. A timeout was performed. The anechoic cyst intended for aspiration was targeted and the skin of the right periareolar region was marked, prepped and draped in the usual sterile fashion. PROCEDURE: Using sonographic guidance, sterile technique, and 1% lidocaine without epinephrine for local anesthesia, aspiration was attempted with a 20-gauge 4-inch spinal needle. No contents could be aspirated. A second attempt to aspirate using an 18-gauge 4 inch spinal needle also ended in the same result with no contents being able to be aspirated, despite definitive puncture of the cyst twice. It is likely the contents are too viscous to aspirate, or more likely the cyst is an ectatic duct. After aspiration attempts the duct did not appear to shrink in size however did not disappear completely. The patient tolerated the procedure well and, after assuring adequate hemostasis, was discharged in good condition after reviewing post aspiration breast care instructions. No fluid could be obtained for pathology or microbiology. US/US breast ndl core biopsy RT IMPRESSION: 1. Unsuccessful sonographically-guided aspiration of a tubular right retroareolar cyst, measuring 3 x 2 x 5 mm, which may actually represent an ectatic duct. See above for details. 2. Recommend surgical management if warranted.
[2023-07-08] MEDS: Lidocaine HCl 1 % 20 ML VIAL 9 ML SUBCUT (14:26)
[2023-07-08] MEDS: Sodium Bicarbonate 8.4% 50 MEQ/50 ML VIAL SUBCUT (14:27)
== END 2023-07-08 09:25 | disposition home or self-care (01) ==
LOC: CF 09:24
PROVIDERS: Referring Provider Internal Medicine; Visit Provider Surgery
DX: N60.01 Solitary cyst of right breast (principal)
CPT/HCPCS: 19083

== ENCOUNTER 2023-07-08 09:24 | Outpatient (AMB) | payer OTHER, SELFPAY ==
--- NOTE | 2023-07-08 09:25 | A.OFFVIS_ITS ---
Intake Vital Signs 07/08/23 09:28 Height 5 ft 3 in Weight 262 lb BMI 46.4 BP 169/98 H Blood Pressure Location Rt brachial Position Sitting Pulse 82 Intake Visit Reasons: Mass Rt areola Intake Note: Patient referred for mass on rt nipple. Has been present for 1m. C/o pain and tenderness to touch. Denies oozing from nipple. 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 He has had workup for this including sonogram demonstrating a large cystic process. He has no other breast issues or complaints. Denies any trauma to the area. No family History of breast cancer. Chart was reviewed patient evaluated [facility] Medical History Impacted cerumen, left ear Low back strain Morbid obesity Pre-op evaluation Elevated blood pressure reading Infected tooth Normal physical exam Asthma, mild intermittent, poorly controlled Poor historian Asthma attacks lasting more than 24 hours Left upper quadrant abdominal pain Asthma Surgical History History of surgery on arm Hx of cholecystectomy Family History Other Substance abuse Social History Household Members: Family Housing: House Alcohol intake: former Patient Tobacco Use Status: Former Tobacco user e-Cigarette/Vaping Use: Never Used Second Hand Smoke Exposure: No service: No Current occupational status: employed and unemployed Current occupation: works nights Current occupational exposures/hazards: No Cognitive needs: No Hearing needs: Yes Vision needs: Yes Physical Exam Vital Signs: Last Vital Signs Pulse 82 07/08/23 09:28 BP 169/98 H 07/08/23 09:28 BMI result Body Mass Index 46.4 Neck Other: No cervical periclavicular or axillary adenopathy. Chest Other: Left chest breast exam within normal limits. Right retro areola demonstrates a fullness. Difficult exam because of patient's marked tenderness over the area. No skin changes. Assessment & Plan Assessment & Plan (1) Cyst of right breast: Code(s): N60.01 - Solitary cyst of right breast Plan Current plan is to arrange for sonographic directed aspiration of right subareolar breast cyst and direct further therapy based on these results. Orders: Orders US breast ndl core biopsy RT Today N60.01 - Solitary cyst of right breast Coding Level of Care Code New Pt Level 4 (48253) Diagnoses Cyst of right breast N60.01
[2023-07-08 09:28] VITALS: BP 169/98; PULSE 82; BMI 46.4
== END 2023-07-08 09:49 | disposition home or self-care (01) ==
PROVIDERS: Referring Provider Internal Medicine; Visit Provider Surgery
DX: N60.01 Solitary cyst of right breast (principal)
CPT/HCPCS: 99204

== ENCOUNTER → 2023-07-08 13:30 | Outpatient (BNV) | payer OTHER, SELFPAY | PROVIDERS: Referring Provider Internal Medicine; Visit Provider Radiology Diagnostic Radiology | DX: N60.01 Solitary cyst of right breast (principal) | CPT/HCPCS: 19083 ==

== ENCOUNTER 2023-07-22 10:03 | Outpatient (AMB) | payer OTHER, SELFPAY ==
[2023-07-22 10:27] VITALS: BP 184/92; PULSE 66; BMI 45.8
--- NOTE | 2023-07-22 10:27 | A.OFFVIS_ITS ---
Intake Vital Signs 07/22/23 10:27 Height 5 ft 3 in Weight 258 lb 6.108 oz BMI 45.8 BP 184/92 H Blood Pressure Location Lt brachial Position Sitting Pulse 66 Intake Visit Reasons: RT breast cyst, US aspiration follow up Intake Note: Patient here to f/u U/S guided aspiration on Rt chest. Patient states there is solid mass under skin. C/o on and off pain. 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 He was initially attempted to have interventional radiologic ultrasound-guided aspiration of the right breast cyst. This in fact proved to be a solid lesion. Patient is still complaining of significant pain with this. He wishes to have this excised. [facility] Medical History Impacted cerumen, left ear Low back strain Morbid obesity Pre-op evaluation Elevated blood pressure reading Infected tooth Normal physical exam Asthma, mild intermittent, poorly controlled Poor historian Asthma attacks lasting more than 24 hours Left upper quadrant abdominal pain Asthma Surgical History History of surgery on arm Hx of cholecystectomy Family History Other Substance abuse Social History Household Members: Family Housing: House Alcohol intake: former Patient Tobacco Use Status: Former Tobacco user e-Cigarette/Vaping Use: Never Used Second Hand Smoke Exposure: No service: No Current occupational status: employed and unemployed Current occupation: works nights Current occupational exposures/hazards: No Cognitive needs: No Hearing needs: Yes Vision needs: Yes Physical Exam Vital Signs: Last Vital Signs Pulse 66 07/22/23 10:27 BP 184/92 H 07/22/23 10:27 BMI result Body Mass Index 45.8 Chest Other: Chest sounds bilaterally, HS 1 and 2. Right breast subareolar marked tenderness and fullness/soft tissue mass measuring approximately 3 x 3 cm. No cervical periclavicular or axillary adenopathy. Left chest/breast within normal limits. No periclavicular cervical or axillary adenopathy. Assessment & Plan Assessment & Plan (1) Breast mass, right: Code(s): N63.10 - Unspecified lump in the right breast, unspecified quadrant Plan As noted above, patient is having significant symptoms and would like this subareolar right breast mass excised. Risks, benefits, alternatives of the procedure were reviewed with the patient and included but not limited to bleeding, infection, recurrence, numbness, pain, scarring, seroma formation the patient wishes to proceed. All questions were answered. Arrangements will be made for this. Coding Level of Care Code Est Pt Level 5 (69877) Diagnoses Breast mass, right N63.10
== END 2023-07-22 10:45 | disposition home or self-care (01) ==
PROVIDERS: Visit Provider Surgery
DX: N63.10 Unspecified lump in the right breast, unspecified quadrant (principal)
CPT/HCPCS: 99214

== ENCOUNTER → 2023-07-22 10:03 | Outpatient (BNVA) | payer OTHER, SELFPAY | PROVIDERS: Visit Provider Surgery | DX: N63.10 Unspecified lump in the right breast, unspecified quadrant (principal) | CPT/HCPCS: 99212 ==

== ENCOUNTER 2023-07-31 08:32 | Day surgery (SDC) | payer OTHER, SELFPAY ==
[2023-07-29 10:24] VITALS: BMI 45.8
--- NOTE | 2023-07-30 10:51 | HO.ANESPROP2 ---
Documented by User: Jumana Amato NP 07/30/23 10:56 HPI - Anesthesia Eval Consult details Narrative: 53yo M for Right Wide Local Breast Mass Excision Follows [facility] [place] pulmo. Asthma/COPD. 75 pack year hx. Quit per 04/2023 and symptoms controlled with inhalers per office visit not e PMFSH Active Problems Active Problems: All Active Problems (Updated 07/02/23 @ 00:00 by Background Daemon) Breast mass, right (Acute) Cyst of right breast (Acute) Sleep disturbance (Acute) Asthma (Acute) Rib fractures (Acute) HTN, goal below 130/80 (Acute) High cholesterol (Acute) Chronic constipation (Acute) MCCLELLAN (dyspnea on exertion) (Acute) COPD (chronic obstructive pulmonary disease) (Acute) Acid reflux (Acute) Forgetfulness (Acute) Past Medical History Medical History Impacted cerumen, left ear Low back strain Morbid obesity Pre-op evaluation Elevated blood pressure reading Infected tooth Normal physical exam Asthma, mild intermittent, poorly controlled Poor historian Asthma attacks lasting more than 24 hours Left upper quadrant abdominal pain Asthma Family History Family History Other Substance abuse Surgical History Surgical History History of surgery on arm Hx of cholecystectomy Social History Social History Household Members: Family Housing: House Alcohol intake: former Patient Tobacco Use Status: Former Tobacco user Quit Date: 2 years Smoked in Last 30 Days: Yes e-Cigarette/Vaping Use: Never Used Second Hand Smoke Exposure: No Use of substances other than those prescribed or required for medical reasons: No Are you DNR?: No Advance Directives: No Advance Directives Information Provided: Yes service: No Current occupational status: employed and unemployed Current occupation: works nights Current occupational exposures/hazards: No Cognitive needs: No Hearing needs: Yes Vision needs: Yes Meds Allergies Allergy/AdvReac Type Severity Reaction Status Date / Time lisinopril AdvReac Cough Verified 07/31/23 08:50 Exam Exam Date and Time: July 30, 2023 1051 Height,Weight and Vital Signs: Height 5 ft 3 in Weight 117.197 kg Pertinent Lab Results Pertinent Lab Results: Laboratory Tests 02/27/23 09:59 WBC 9.6 Hgb 14.5 Hct 45.0 Plt Count 318 Sodium 139 Potassium 4.0 Chloride 107 Carbon Dioxide 24 BUN 15 Creatinine 0.87 Narrative Narrative: EKG 02/2023 Vent. Rate : 080 BPM Atrial Rate : 080 BPM P-R Int : 188 ms QRS Dur : 070 ms QT Int : 382 ms P-R-T Axes : 022 025 051 degrees QTc Int : 440 ms Normal sinus rhythm Normal ECG When compared with ECG of 09-JAN-2023 11:46, Nonspecific T wave abnormality, improved in Lateral leads Assessment and Plan Assessment Anesthesia Assessment: Chart Reviewed Documented by User: Terry Garsia MD 07/31/23 11:28 [facility] Past Medical History Medical History Impacted cerumen, left ear Low back strain Morbid obesity Pre-op evaluation Elevated blood pressure reading Infected tooth Normal physical exam Asthma, mild intermittent, poorly controlled Poor historian Asthma attacks lasting more than 24 hours Left upper quadrant abdominal pain Asthma Family History Family History Other Substance abuse Family history of problems with anesthesia: No Surgical History Surgical History History of surgery on arm Hx of cholecystectomy History of Problems with Anesthesia: No Social History Social History Household Members: Family Housing: House Alcohol intake: former Patient Tobacco Use Status: Former Tobacco user Quit Date: 2 years Smoked in Last 30 Days: Yes e-Cigarette/Vaping Use: Never Used Second Hand Smoke Exposure: No Use of substances other than those prescribed or required for medical reasons: No Are you DNR?: No Advance Directives: No Advance Directives Information Provided: Yes service: No Current occupational status: employed and unemployed Current occupation: works nights Current occupational exposures/hazards: No Cognitive needs: No Hearing needs: Yes Vision needs: Yes Meds Allergies Allergy/AdvReac Type Severity Reaction Status Date / Time lisinopril AdvReac Cough Verified 07/31/23 08:50 Exam Airway Mallampati Class: II TM Dist: <=3cm Neck ROM: Full Loose/Missing/Broken Teeth: Yes Heart: ok Lungs: clear, normal exp phase Assessment and Plan Assessment Anesthesia Assessment: Anesthesia Plan Discussed Final Anesthetic Review Family History of Problems with Anesthesia: No History of Problems with Anesthesia: No NPO: Yes ASA Class: III Final Preanesthetic Review: No Changes in Pt Med Stat, Meds/Allgs Chart Reviewed, Consent Obtained/Reviewed and Anes Risks/Benef Reviewed Patient Risk: Intermediate Procedure Risk: Low Anesthetic Plan Anesthetic Plan: Agree w/ Assess. and Plan Disposition: Standard PACU
--- NOTE | 2023-07-30 13:34 | MHC.SHP ---
Pre-Procedural Eval Section A Date of Service: 07/30/23 The patient is an INPATIENT: No Changes since office visit: No Cold of Flu in the past 2 weeks, No New Medical Problems, No Changes in Medication and No Patient answered all questions The History & Physical has been completed within 30 days and I have reviewed it.: Yes Section B Chief Complaint: Unspecified lump in the right breast, unspecified Allergies: Allergies Allergy/AdvReac Type Severity Reaction Status Date / Time lisinopril AdvReac Cough Verified 07/22/23 10:29 Plan I have reviewed the history and physical and performed a pertinent physical examination on my patient. No changes have occurred unless specified. Time Spent With Patient Time: Total time managing care of this patient today ____ minutes.
[2023-07-31 08:43] VITALS: BMI 45.7
[2023-07-31] MEDS: Lactated Ringers 1,000 ML 100 ML IVCONT (09:21)
[2023-07-31 09:22] VITALS: BP 147/87; PULSE 84; RESP 16; TEMP 36.6; O2SAT 98
--- NOTE | 2023-07-31 11:37 | W.PM.OPN ---
Operative Note Operative Note Date of Service: 07/31/23 Narrative: Preoperative diagnosis: [] Right subareolar breast mass/gynecomastia Postop diagnosis: [] Same Procedure [] wide local excision right subareolar breast mass/gynecomastia Surgeon: [] Malachi Steam Heating Installer: [] Vito Type of Anesthesia: [] General Indication for surgery: [] Symptomatic right subareolar breast mass. Findings: [] Patient brought to the operating room, placed on operative table in supine position, after adequate level of general anesthesia was induced, the right chest and breast were prepped and draped in usual sterile fashion. Using a super at areolar curvilinear incision, extending from 3:00 to 9:00, this carried down through skin, subcutaneous tissue, were a large subareolar breast mass was shaved off the posterior aspect of the areola and dissected from the surrounding chest/breast tissue using Bovie. Specimen sent to pathology. Wound was irrigated, secured hemostasis, and closed using interrupted inverted dermal 3-0 Vicryl sutures followed by Steri-Strips and sterile dressings. Wounds of treated 0.5% Marcaine/1% lidocaine. Sponge, needle, and instrument counts were reported to be correct. Patient tolerated the procedure well and emerged anesthesia in stable condition. EBL minimal
[2023-07-31 11:54] VITALS: BP 110/74; PULSE 93; RESP 16; TEMP 36.6; O2SAT 93
[2023-07-31 11:59] VITALS: BP 103/54; PULSE 81; RESP 14; O2SAT 94
[2023-07-31 12:04] VITALS: BP 92/62; PULSE 81; RESP 13; O2SAT 94
[2023-07-31 12:09] VITALS: BP 104/51; PULSE 81; RESP 15; O2SAT 95
[2023-07-31 12:24] VITALS: BP 109/64; PULSE 76; RESP 12; TEMP 36.6; O2SAT 95
== END 2023-07-31 13:33 | disposition home or self-care (01) ==
PROVIDERS: Visit Provider Surgery
PROC: (CPT 19120; principal; 2023-07-31 10:40)
DX: N63.41 Unspecified lump in right breast, subareolar (principal); N64.4 Mastodynia; N62 Hypertrophy of breast; J45.20 Mild intermittent asthma, uncomplicated; I10 Essential (primary) hypertension; E66.01 Morbid (severe) obesity due to excess calories; Z68.42 Body mass index [BMI] 45.0-49.9, adult; Z88.8 Allergy status to other drugs, medicaments and biological substances; Z87.891 Personal history of nicotine dependence
CPT/HCPCS: 19120; 88307; J0690; J1885; J2250; J2405; J3010

== ENCOUNTER → 2023-07-31 08:32 | Outpatient (BNV) | payer OTHER, SELFPAY | PROVIDERS: Visit Provider Surgery | DX: N62 Hypertrophy of breast (principal) | CPT/HCPCS: 19120 ==

== ENCOUNTER 2023-08-13 08:29 | Outpatient (AMB) | payer OTHER, SELFPAY ==
[2023-08-13 08:40] VITALS: BP 169/102; PULSE 83
--- NOTE | 2023-08-13 08:40 | MHC.OFFVIS ---
Intake Vital Signs 08/13/23 08:40 Weight 261 lb BP 169/102 H Blood Pressure Location Rt brachial Position Sitting Pulse 83 Intake Visit Reasons: S/p WLE right subareolar breast mass Intake Note: Patient here s/p WLE Rt subareolar breast mass. Feels there is a larger lump underneath skin since procedure. Tender to touch. Prop And Effects Designer Required: No Accompanied by: Self / Same As Patient Allergies lisinopril Adverse Reaction (Verified 08/13/23 08:42) Cough HPI HPI Comments History of Present Illness Details Patient presents for follow-up. He has some mild incisional discomfort otherwise doing well. Pathology is benign. [facility] Medical History Impacted cerumen, left ear Low back strain Morbid obesity Pre-op evaluation Elevated blood pressure reading Infected tooth Normal physical exam Asthma, mild intermittent, poorly controlled Poor historian Asthma attacks lasting more than 24 hours Left upper quadrant abdominal pain Asthma Surgical History (Updated 08/13/23 @ 08:43 by MANUEL To) History of excision of mass (07/31/23) History of surgery on arm Hx of cholecystectomy Family History Other Substance abuse Social History Household Members: Family Housing: House Alcohol intake: former Patient Tobacco Use Status: Former Tobacco user Quit Date: 2 years e-Cigarette/Vaping Use: Never Used Second Hand Smoke Exposure: No service: No Current occupational status: employed and unemployed Current occupation: works nights Current occupational exposures/hazards: No Cognitive needs: No Hearing needs: Yes Vision needs: Yes Physical Exam Vital Signs: Last Vital Signs Pulse 83 08/13/23 08:40 BP 169/102 H 08/13/23 08:40 Chest Other: Incision clean dry and intact. Patient has a moderate-sized seroma. Under sterile technique, approximately 8 cc of serosanguineous fluid was retrieved. Dressing was applied. Patient tolerated procedure well. Assessment & Plan Assessment & Plan (1) Breast mass, right: Code(s): N63.10 - Unspecified lump in the right breast, unspecified quadrant Plan Patient has been given local instructions including avoiding stress activities next few weeks time and will otherwise follow-up p.r.n. Coding Level of Care Code Global (00775) Diagnoses Breast mass, right N63.10
== END 2023-08-13 08:58 | disposition home or self-care (01) ==
PROVIDERS: Visit Provider Surgery
DX: N63.10 Unspecified lump in the right breast, unspecified quadrant (principal)
CPT/HCPCS: 99024

== ENCOUNTER → 2023-08-13 08:29 | Outpatient (BNVA) | payer OTHER, SELFPAY | PROVIDERS: Visit Provider Surgery ==

== ENCOUNTER 2023-08-13 09:03 | Emergency (ER) | payer OTHER, SELFPAY ==
--- NOTE | ~2023-08-13 | XR_ITS ---
EXAMINATION: XR CHEST CLINICAL INFORMATION: Cough COMPARISON: Chest 07/01/2023 TECHNIQUE: 2 views of the chest were obtained. FINDINGS: No significant abnormality is noted involving the heart, lungs, mediastinum, bony thorax or soft tissues. XR/XR chest 2V IMPRESSION: No acute cardiopulmonary disease.
[2023-08-13 09:10] VITALS: BP 154/86; PULSE 79; RESP 20; TEMP 36.4; O2SAT 94; BMI 46.4
[2023-08-13 09:50] LABS: IDNOW Serial# 08D9AD1C; Strep A Nucleic Acid Negative (Negative)
[2023-08-13 09:52] LABS: COVID-19 Test Negative (Negative); IDNOW Serial# BCCEAD1C
--- NOTE | 2023-08-13 11:02 | ED.GENADULT ---
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 Patient had surgery in mid July, where he believes he was intubated. He states that after the procedure he had some slight sore throat. He states that the sore throat has worsened. He developed a cough 1 week ago. He endorses yellow-colored sputum. No fevers, chills, chest pain, shortness of breath, abdominal pain, nausea, vomiting or diarrhea. He was a previous smoker, states that he used to smoke 5 packs per day, he quit 2 years ago. No other complaints or concerns at this time. MD complaint: Cough, sore throat Onset (ago): week(s) Radiation: non-radiation Pain Consistency: constant Relieving factors: none Exacerbating factors: none Associated symptoms: denies other symptoms Treatments prior to arrival: none Related Data Previous Rx's Medication Instructions Recorded docusate sodium 100 mg capsule 200 mg (2 x 100 mg) PO BEDTIME #60 09/11/22 (Colace) caps atorvastatin 40 mg tablet 40 mg PO BEDTIME #90 tabs 11/20/22 blood pressure kit-extra large #1 ea 11/20/22 miscellaneous medical supply See Rx Instructions miscellaneous 11/20/22 .COMPLEX #1 ea amlodipine 10 mg tablet (Norvasc) 10 mg PO DAILY #90 tabs 01/28/23 hydrochlorothiazide 12.5 mg tablet 12.5 mg PO DAILY #90 tabs 01/28/23 Ventolin HFA 90 mcg/actuation 2 puff inhalation Q4-6H PRN 01/30/23 aerosol inhaler (albuterol sulfate) shortness of breath or wheezing #8 grams albuterol sulfate 1.25 mg/3 mL 1.25 mg (3 mL) inhalation Q4H 1 01/30/23 solution for nebulization month #540 mL umeclidinium 62.5 mcg-vilanterol 1 inh inhalation DAILY 30 days #1 02/27/23 25 mcg/actuation powdr for ea inhalation (Anoro Ellipta) melatonin 3 mg capsule 3 mg PO BEDTIME PRN sleep 30 days 05/31/23 #30 caps azithromycin 250 mg tablet See Rx Instructions PO .COMPLEX #6 08/13/23 tabs benzonatate 100 mg capsule 100 mg PO TID PRN cough #14 caps 08/13/23 Allergies Allergy/AdvReac Type Severity Reaction Status Date / Time lisinopril AdvReac Cough Verified 08/13/23 09:15 Review of Systems Review of Systems: Yes all other systems are reviewed and are negative Constitutional: Constitutional: Reports as per [facility] Past Medical History Attestation statement: The following information was validated with the patient. Medical History Impacted cerumen, left ear Low back strain Morbid obesity Pre-op evaluation Elevated blood pressure reading Infected tooth Normal physical exam Asthma, mild intermittent, poorly controlled Poor historian Asthma attacks lasting more than 24 hours Left upper quadrant abdominal pain Asthma Surgical History History of excision of mass (07/31/23) History of surgery on arm Hx of cholecystectomy Family History Family History Other Substance abuse Social History Social History Household Members: Family Housing: House Alcohol intake: former Patient Tobacco Use Status: Former Tobacco user Quit Date: 2 years e-Cigarette/Vaping Use: Never Used Second Hand Smoke Exposure: No Advance Directives: No Advance Directives Information Provided: Yes service: No Current occupational status: employed and unemployed Current occupation: works nights Current occupational exposures/hazards: No Cognitive needs: No Hearing needs: Yes Vision needs: Yes Physical Exam ED Vital Signs: Vital Signs - 24 hr 08/13/23 09:10 Temperature 97.6 F Pulse Rate 79 Respiratory Rate 20 Blood Pressure 154/86 H Pulse Oximetry 94 Oxygen Delivery Method Room Air BMI result Body Mass Index 46.4 Const General: cooperative, comfortable and no acute distress Orientation/consciousness: patient oriented x3 Limitations: no limitations HENMT Head: Yes normal to inspection, Yes normocephalic and Yes atraumatic Ears: hearing grossly normal bilaterally General nose exam: Normal external nose present Face and sinus: Yes normal facial exam Mouth: Normal oral and palatal mucosa present, oropharynx normal and moist mucous membranes Throat: Yes posterior oropharynx normal Eyes General: appearance normal, both eyes and all related structures Eyelids: Yes eyelids normal Conjunctivae: conjunctivae normal Sclerae: sclerae normal Pupils: Equal, round and reactive pupils present EOM: EOMs intact bilaterally Neck Neck: Yes normal visual inspection, Yes full ROM and Yes no lymphadenopathy Lymphatic: no lymphadenopathy noted Chest Chest palpation & inspection: normal inspection of the chest Resp Effort & Inspection: normal respiratory effort and able to speak in complete sentences Auscultation: clear to auscultation bilaterally, no crackles, no rales, no rhonchi and no wheezes Cardio Rate: regular rate Rhythm: regular rhythm Heart sounds: S1 normal heart sound present and S2 normal heart sound present GI Inspection: Yes normal to inspection Skin General skin exam: no rashes or lesions noted Trauma: no lacerations or abrasions Wounds: no wounds Neuro General: patient oriented x3 and moves all extremities Cranial nerves: Yes Equal, round and reactive pupils present Extrem General: Yes normal to inspection Right upper extremity: normal to inspection Left upper extremity: normal to inspection Right lower extremity: normal to inspection Left lower extremity: normal to inspection Medical Decision Making Medical Decision Making [facility] Narrative: This is a 53-year-old male, with a history of COPD, presenting to the emergency department with complaints of sore throat and cough. Patient had a surgery to have a breast mass removed 2 weeks ago. He developed a sore throat after this procedure. He also developed a cough 1 week ago. He reports yellow colored sputum. Denies any fevers, chills, nausea, vomiting or diarrhea. On arrival, vital signs within normal limits. Patient is nontoxic appearing, not hypoxic. Patient tested negative for COVID and strep. Chest x-ray was unremarkable. Given COPD history as well as recent surgery, will treat with azithromycin, and Tessalon Perles. Discussed return precautions. Patient understands and agrees with plan. Patient stable for discharge. Differential Diagnosis Differential Diagnoses: The differential diagnosis associated with the presentation includes Pneumonia, COPD, upper respiratory infection, COVID Lab Data [facility] Lab Attestation statement: I reviewed the patient's lab results. Negative Labs: Lab Results 08/13/23 Range/Units 09:32 COVID-19 (DOMINGA) Negative (Negative) COVID-19 Clin Com See Note S. pyogenes GrpA HAN Negative (Negative) Radiology Impression Discussion of test interpretation with radiology: I have reviewed the radiologist's reading. Radiologist Impression: EXAMINATION: XR CHEST CLINICAL INFORMATION: Cough COMPARISON: Chest 07/01/2023 TECHNIQUE: 2 views of the chest were obtained. FINDINGS: No significant abnormality is noted involving the heart, lungs, mediastinum, bony thorax or soft tissues. XR/XR chest 2V IMPRESSION: No acute cardiopulmonary disease. Dictated By: Alina Aguillon MD Discharge Plan Discharge Clinical Impression: Acute upper respiratory infection Patient Disposition: Home, Self-Care Additional Instructions: Your seen in the emergency department due to a sore throat and cough. You tested negative for COVID and strep today. I prescribing an antibiotic, please finish the entire course even if you are feeling better. Take Tessalon as needed for cough. Drink plenty of fluids get plenty of rest. Warm soups, tea with honey can also help with your symptoms. If any new or worsening symptoms occur including but not limited to chest pain, shortness of breath, difficulty swallowing, please return for re-evaluation. Follow-up with your primary care physician. Lo atendieron en el departamento de emergencias debido a dolor de garganta y tos. La prueba de COVID y estreptococo dian negativo hoy. Le receto un antibi?chirag, termine todo el tratamiento incluso si se siente mejor. [place] Tessalon seg?n sea necesario para la tos. Christie muchos l?quidos y descanse mucho. Las sopas calientes y el t? con miel tambi?n pueden ayudar con mariluz s?ntomas. Si se presenta alg?n s?ntoma nuevo o que empeora, incluidos, entre otros, dolor en el pecho, dificultad para respirar o dificultad para tragar, regrese para michael nueva evaluaci?n. Seguimiento con montanez m?dico de atenci?n primaria. Prescriptions: New azithromycin 250 mg tablet See Rx Instructions PO .COMPLEX Qty: 6 0RF Rx Instructions: For 250 mg dose pack: take 500 mg today (day 1), then 250 mg for 4 days (days 2-5) benzonatate 100 mg capsule 100 mg PO TID PRN (Reason: cough) Qty: 14 0RF No Action atorvastatin 40 mg tablet 40 mg PO BEDTIME Qty: 90 3RF albuterol sulfate 1.25 mg/3 mL solution for nebulization 1.25 mg inhalation Q4H 30 Days Qty: 540 5RF albuterol sulfate [Ventolin HFA] 90 mcg/actuation HFA aerosol inhaler 2 puff inhalation Q4-6H PRN (Reason: shortness of breath or wheezing) Qty: 8 5RF Anoro Ellipta 62.5-25 mcg/actuation blister with device 1 inh inhalation DAILY 30 Days Qty: 1 6RF amlodipine [Norvasc] 10 mg tablet 10 mg PO DAILY Qty: 90 3RF hydrochlorothiazide 12.5 mg tablet 12.5 mg PO DAILY Qty: 90 3RF melatonin 3 mg capsule 3 mg PO BEDTIME PRN (Reason: sleep) 30 Days Qty: 30 2RF (DME) blood pressure kit-extra large Kit See Rx Instructions .Route Qty: 1 0RF Rx Instructions: As directed miscellaneous medical supply Misc See Rx Instructions miscellaneous .COMPLEX Qty: 1 0RF Rx Instructions: air purifier for personal use as directed; docusate sodium [Colace] 100 mg capsule 200 mg PO BEDTIME Qty: 60 5RF Interventions: ED Discharge Assessment Last Done: 08/13/23 12:20 Discharge Date/Time: 08/13/23 12:21
== END 2023-08-13 12:21 | disposition home or self-care (01) ==
PROVIDERS: Emergency Provider Student in an Organized Health Care Education/Training Program
DX: J06.9 Acute upper respiratory infection, unspecified (principal); J02.9 Acute pharyngitis, unspecified; R05.9 Cough, unspecified; Z11.52 Encounter for screening for COVID-19; J44.9 Chronic obstructive pulmonary disease, unspecified; E66.9 Obesity, unspecified; Z68.42 Body mass index [BMI] 45.0-49.9, adult; Z87.891 Personal history of nicotine dependence
CPT/HCPCS: 71046; 87635; 87651; 99282; 99283

== ENCOUNTER 2023-08-15 11:45 | Outpatient (REF) | payer OTHER, SELFPAY ==
[2023-08-15 12:03] LABS: Cholesterol 245 mg/dL (<200); HDL Cholesterol 49 mg/dL (>40); LDL Cholesterol Calculated 134 mg/dL (<100); Triglycerides 311 mg/dL (<150)
== END 2023-08-15 11:46 | disposition home or self-care (01) ==
LOC: HO.WFDLDS 11:45
PROVIDERS: Visit Provider Nurse Practitioner Family
DX: E78.00 Pure hypercholesterolemia, unspecified (principal)
CPT/HCPCS: 36415; 80061

== ENCOUNTER 2023-08-21 14:11 | Outpatient (AMB) | payer OTHER, SELFPAY ==
--- NOTE | 2023-08-21 14:25 | A.OFFPC_ITS ---
Vital Signs 08/21/23 14:26 Height 5 ft 3 in Weight 261 lb BMI 46.2 BP 138/74 Blood Pressure Location Rt brachial Position Sitting Respiration 13 Pulse 76 Pulse Source Pulse Oximeter Pulse Oximetry (%) 96 Oxygen Delivery Method Room Air Intake Visit Reasons: Transfer of care - HTN, HLD Intake Note: Patient reports he is here for cramping in bilateral legs consistently for about 2 months. Patient reports he has a sore throat for about 6 weeks and he went to the doctor and they informed him they did not see anything wrong. Patient reports it feels like there is something blocking his throat causing pain. Patient notes he see's a therapist and a psychologist. Patient also reports he recently had a mass surgically removed from his chest. Patient reports he would like to review his lab results today as well. Regional Ehs Manager Required: Yes Regional Ehs Manager Name: Jarred ([id number]) Accompanied by: Self / Same As Patient Allergies lisinopril Adverse Reaction (Verified 08/21/23 15:10) Cough Medication List - Last Reconciled 08/21/23 by Mariaelena Doe CNP albuterol sulfate 1.25 mg (3 mL) inhalation Q4H 1 month amlodipine (Norvasc) 10 mg PO DAILY atorvastatin 40 mg PO BEDTIME azithromycin For 250 mg dose pack: take 500 mg today (day 1), then 250 mg for 4 days (days 2-5) benzonatate 100 mg PO TID PRN blood pressure kit-extra large As directed docusate sodium (Colace) 200 mg (2 x 100 mg) PO BEDTIME hydrochlorothiazide 12.5 mg PO DAILY melatonin 3 mg PO BEDTIME PRN 30 days miscellaneous medical supply air purifier for personal use as directed; umeclidinium-vilanterol 62.5-25 mcg/actuation (Anoro Ellipta) 1 inh inhalation DAILY 30 days Ventolin HFA 90 mcg/actuation (albuterol sulfate) 2 puffs inhalation Q4-6H PRN NS Tobacco use date assessed: 01/28/23 Dental Screening Dental Screen Date: 08/21/23 Did you have a dental visit in the last 12 months?: Yes Did you have a dental problem in the last 6 months where you did not have access to dental care?: No Was dental information given to patient?: Patient has dentist HPI HPI Comments History of Present Illness Details 53-year-old Qatari-speaking male samantha for transfer of care Her former PCP is RANI who is no longer with the practice He has past medical history significant for asthma, hypertension, hyperlipidemia, and COPD He reports sore throat since after he was intubated for surgical removal of right breast mass a month ago. His sore throat has worsen. He was evaluated at [facility] a week ago with normal physical findings, negative COVID and strep test, chest x-ray unremarkable. He was sent home on azithromycin and benzonatate. He reports continued sore throat. He admits to taking benzonatate and azithromycin as prescribed with minimal relief of his sore throat. He denies cough. He denies REIS, fever, chills, fatigue or weakness. He also reports intermittent cramping to his anterior thighs proximal to his knees for the 1-2 months. [facility] Medical History Impacted cerumen, left ear Low back strain Morbid obesity Pre-op evaluation Elevated blood pressure reading Infected tooth Normal physical exam Asthma, mild intermittent, poorly controlled Poor historian Asthma attacks lasting more than 24 hours Left upper quadrant abdominal pain Asthma Surgical History History of excision of mass (07/31/23) History of surgery on arm Hx of cholecystectomy Family History Other Substance abuse Social History Household Members: Family Housing: House Alcohol intake: former Patient Tobacco Use Status: Former Tobacco user Quit Date: 2 years e-Cigarette/Vaping Use: Never Used Second Hand Smoke Exposure: No service: No Current occupational status: employed and unemployed Current occupation: works nights Current occupational exposures/hazards: No Cognitive needs: No Hearing needs: Yes Vision needs: Yes Questionnaire PHQ-9 Over the last 2 weeks, how often have you been bothered by any of the following problems? 49774 - PHQ-9 Billing: Yes Source: Developed by Drs. Amauri Pandya, Roselyn Jeong, Nigel Posada and colleagues, with an educational beatrice from [employer]. Thrive Questionnaire Date Thrive assessed: 08/21/23 I am a: Patient What is your living situation today?: I have a steady place to live Within the past 12 months, did the food you bought not last and you didn't have the money to get more?: Never true Within the past 12 months, did you worry whether your food would run out before you got money to buy more?: Never true Do you have trouble paying for medicines?: No Do you have trouble getting transportation to medical appointments?: No Do you have trouble paying your heating and electricity bill?: No Do you have trouble taking care of your child, family member or friend?: No Do you have trouble with day-to-day activities such as bathing, preparing meals, shopping, managing finances, etc.?: No Are you currently unemployed and looking for a job?: No Are you interested in more education?: No Please select the resources that you would like help with: None Currently or been in a relationship where the following occur: no concerns reported AUDIT C Alcohol Use Questionnaire (AUDIT-C) 1. How often do you have a drink containing alcohol?: Never 3. How often do you have six or more drinks on one occasion?: Never Total Score: 0 DENISHA-7 AMB Questionnaire DENISHA-7 Date DENISHA - 7 assessed: 08/21/23 Source: Developed by Drs. Amauri Pandya, Roselyn Jeong, Nigel Posada and colleagues, with an educational beatrice from [employer]. DENISHA-7 Assessment Billing DENISHA-7 Assessment Tool: DENISHA-7 Assessment 57335 Review of Systems Const Details: Const Denies chills, Denies fatigue, Denies fever(s), Denies headache(s) and Denies weakness ENT Denies dizziness and Denies headache(s) Card Denies chest pain, Denies lightheadedness, Denies dyspnea and Denies other (Palpitations) Resp Denies cough, Denies dyspnea, Denies wheezing and Denies other ( shortness of breath) GI Denies abdominal pain, Denies melena, Denies hematochezia, Denies change in bowel habits, Denies dyspepsia and Denies nausea Denies hematuria and Denies dysuria Musc Denies abnormal gait, Denies myalgias, Denies arthralgias, Denies numbness and Denies tingling Skin/Breast Denies rash, Denies unusual bruising and Denies wounds Neuro Denies abnormal gait, Denies dizziness, Denies headache(s), Denies memory loss, Denies numbness, Denies Sensory deficit (Neuro), Denies tingling and Denies weakness Psych Denies anxiety, Denies depression, Denies memory loss Endo Denies cold intolerance, Denies fatigue, Denies heat intolerance, Denies polydipsia and Denies polyuria Aller/Immun Denies wheezing Physical exam (Primary Care) Vital Signs: Last Vital Signs Pulse 76 08/21/23 14:26 Resp 13 08/21/23 14:26 BP 138/74 08/21/23 14:26 Pulse Ox 96 08/21/23 14:26 Oxygen Delivery Method Room Air 08/21/23 14:26 BMI result Body Mass Index 46.2 Tobacco/Smoking Status: Tobacco use Status Tobacco use date assessed 01/28/23 08/21/23 14:28 Patient Tobacco Use Status Former Tobacco user 08/21/23 14:28 e-Cigarette/Vaping Use Never Used 08/21/23 14:28 PHQ-9: PHQ-9 Score PHQ-9: Total score 14 08/21/23 14:46 Thrive Assessment: Date of Thrive Assessment Date Thrive assessed 08/21/23 08/21/23 14:46 Currently or been in a relationship where the following occur: no concerns reported Const Other: General: no acute distress and well developed Nutritional Appearance: well nourished Orientation/consciousness: patient oriented x3 HENMT Head is normocephalic Bilateral ear canal and TM are normal Nasal turbinates and oropharynx are pink and moist Sinuses are nontender with palpation No auricular or cervical lymphadenopathy Eyes General: appearance normal, both eyes and all related structures Pupils: Equal, round and reactive pupils present EOM: EOMs intact bilaterally Resp Effort & Inspection: normal respiratory effort Auscultation: clear to auscultation bilaterally Cardio Rate: regular rate Rhythm: regular rhythm Heart sounds: S1 normal heart sound present, S2 normal heart sound present, no gallops, no murmurs and no rubs GI Palpation (GI): No Abdominal aortic bruit present, Soft to palpation, nontender, No hepatosplenomegaly present and No Rebound tenderness present Auscultation: normal bowel sounds General: Yes no CVA tenderness Back/Spine/Pelvis Back: no CVA tenderness Cervical Spine: cervical ROM normal and No Cervical spine tenderness Thoracic/Lumbar Spine: thoraco-lumbar ROM normal, No pain with thoraco-lumbar ROM, No thoracic spinal tenderness and No lumbar spinal tenderness Extrem General: Yes normal to inspection, No edema and No calf tenderness Skin General: warm and dry. Normal skin color. Normal skin turgor Neuro General: patient oriented x3, gait normal and no focal neuro deficit Cranial nerves: Yes Equal, round and reactive pupils present Cognition (Neuro): normal cognition Gait exam (Neuro): Normal gait present Sensory Exam: No Sensory deficit (Neuro) Psych Appearance: grossly normal Affect: normal affect Attitude: cooperative Thought process: Normal thought process present Assessment and Plan Assessment & Plan (1) Hypertension: Code(s): I10 - Essential (primary) hypertension Qualifiers: Hypertension type: primary hypertension Qualified Code(s): I10 - Essential (primary) hypertension Plan: Blood pressure is 138/74, within goal of less than 140/90 Continue to take hydrochlorothiazide and amlodipine as prescribed Low-sodium diet encouraged Follow-up in 1-2 months for an extended physical exam Verbalized understanding and agreed with treatment plan Interpretation by a professional lifestyle director via electronic tablet (2) High cholesterol: Code(s): E78.00 - Pure hypercholesterolemia, unspecified Plan: Recent lipid panel level reviewed with the patient Triglycerides, total cholesterol, and LDL is elevated, but significantly improved from previous level, 311, 245, and 134 respectively Continue to take atorvastatin as prescribed Advised to limit foods high in saturated fat and avoid foods high trans fat Routine exercise encouraged Will continue to monitor Follow-up in 1-2 months for an extended physical exam Verbalized understanding and agreed with the treatment plan. (3) Sore throat: Code(s): J02.9 - Acute pharyngitis, unspecified Plan: Reports sore throat since after he was intubated for surgical procedure 3 weeks ago Reports minimal improvement with azithromycin and benzonatate there was prescribed in the ED for same complaints Physical exam is unremarkable Oropharynx is pink and moist without erythema, patches, or exudate. No obvious signs of infection Likely viral illness or allergies Adequate hydration encouraged May gargle with salt water Return with worsening or new symptoms Verbalized understanding and agreed with treatment plan (4) Bilateral leg cramps: Code(s): R25.2 - Cramp and spasm Plan: He also reports intermittent cramping to his anterior thighs proximal to his knees for the 1-2 months Muscle fatigue, dehydration, or electrolyte imbalances likely Will check BMP and CBC and make changes as needed Warm showers or warm or cold compresses encouraged Exercise and massage also recommended Return with worsening or new symptoms Verbalized understanding and agreed with treatment plan. Orders: Orders Basic Metabolic Panel Today R25.2 - Cramp and spasm Complete Blood Count no Diff Today R25.2 - Cramp and spasm Coding Level of Care Code Est Pt Level 4 (04642) Diagnoses Primary hypertension I10 Hypertension type: primary hypertension High cholesterol E78.00 Sore throat J02.9 Bilateral leg cramps R25.2 Additional Codes DENISHA-7 Assessment Billing - DENISHA-7 Assessment Tool: DENISHA-7 Assessment 76925 ([id number])
[2023-08-21 14:26] VITALS: BP 138/74; PULSE 76; RESP 13; O2SAT 96; BMI 46.2
== END 2023-08-21 15:48 | disposition home or self-care (01) ==
PROVIDERS: Visit Provider Nurse Practitioner Family
DX: I10 Essential (primary) hypertension (principal); E78.00 Pure hypercholesterolemia, unspecified; J02.9 Acute pharyngitis, unspecified; R25.2 Cramp and spasm
CPT/HCPCS: 99214

== ENCOUNTER 2023-08-26 10:23 | Outpatient (REF) | payer OTHER, SELFPAY ==
[2023-08-26 14:42] LABS: Hematocrit 45.6 % (42.0-52.0); Hemoglobin 14.6 g/dl (14.0-18.0); Mean Corpuscular Hemoglobin 24.5 pg (27.0-33.0); Mean Corpuscular Volume 76.5 fL (80.0-98.0); Mean Platelet Volume 9.6 fL (9.4-12.4); Platelet Count 343 X10*3/uL (160-400); Red Blood Count 5.96 X10*6/uL (4.60-5.80); Red Cell Distribution Width 16.9 % (11.0-16.0)
[2023-08-26 14:58] LABS: Anion Gap 8 (12-20); Blood Urea Nitrogen 16 mg/dL (9-16); Calcium 9.7 mg/dL (8.4-10.2); Carbon Dioxide 30 mmol/L (22-29); Chloride 104 mmol/L (96-108); Estimated Glomerular Filt Rate > 60; Glucose Random 122 mg/dL (60-115); Sodium 138 mmol/L (135-145)
== END 2023-08-26 10:24 | disposition home or self-care (01) ==
LOC: HO.WFDLDS 10:23
PROVIDERS: Visit Provider Nurse Practitioner Family
DX: R25.2 Cramp and spasm (principal)
CPT/HCPCS: 36415; 80048; 85027

== ENCOUNTER 2023-10-08 10:58 | Emergency (ER) | payer OTHER, SELFPAY ==
[2023-10-08 12:09] VITALS: BP 143/96; PULSE 76; RESP 18; TEMP 36.4; O2SAT 96; BMI 46.8
--- NOTE | 2023-10-08 12:14 | ED.GENADULT ---
HPI - General Adult General Chief complaint: Upper Respiratory Symptoms Stated complaint: Sore throat 3 months Time Seen by Provider: 10/08/23 16:37 Source: patient Mode of arrival: ambulatory Limitations: no limitations History of Present Illness HPI narrative: This is a 53-year-old male presenting with burning sore throat for the past 3 months not improving was seen by his PCP, patient states PCP did not do much about it. He reports consistent discomfort. Hasnt tried OTC meds. He states his voice sounds slightly hoarse, intermittently not always. Denies fevers, chills, weight loss, nausea vomiting, chest pain, shortness of breath, cough, abdominal pain, diarrhea headache vision changes. No known thyroid issues. Related Data Previous Rx's Medication Instructions Recorded docusate sodium 100 mg capsule 200 mg (2 x 100 mg) PO BEDTIME #60 09/11/22 (Colace) caps blood pressure kit-extra large #1 ea 11/20/22 miscellaneous medical supply See Rx Instructions miscellaneous 11/20/22 .COMPLEX #1 ea Ventolin HFA 90 mcg/actuation 2 puff inhalation Q4-6H PRN 01/30/23 aerosol inhaler (albuterol sulfate) shortness of breath or wheezing #8 grams albuterol sulfate 1.25 mg/3 mL 1.25 mg (3 mL) inhalation Q4H 1 01/30/23 solution for nebulization month #540 mL umeclidinium 62.5 mcg-vilanterol 1 inh inhalation DAILY 30 days #1 02/27/23 25 mcg/actuation powdr for ea inhalation (Anoro Ellipta) melatonin 3 mg capsule 3 mg PO BEDTIME PRN sleep 30 days 05/31/23 #30 caps azithromycin 250 mg tablet See Rx Instructions PO .COMPLEX #6 08/13/23 tabs benzonatate 100 mg capsule 100 mg PO TID PRN cough #14 caps 08/13/23 amlodipine 10 mg tablet (Norvasc) 10 mg PO DAILY 90 days #90 tabs 08/26/23 atorvastatin 40 mg tablet 40 mg PO BEDTIME 90 days #90 tabs 08/26/23 hydrochlorothiazide 12.5 mg tablet 12.5 mg PO DAILY 90 days #90 tabs 08/26/23 amoxicillin 875 mg-potassium 1 tab PO BID 7 days #14 tabs 10/08/23 clavulanate 125 mg tablet loratadine 10 mg tablet 10 mg PO DAILY #30 tabs 10/08/23 Allergies Allergy/AdvReac Type Severity Reaction Status Date / Time lisinopril AdvReac Cough Verified 08/21/23 15:10 Review of Systems Review of Systems: Constitutional : No Weight loss, No Fever, No Chills, No Fatigue, No Malaise ENT/Mouth : + sore throat, No Rhinorrhea Eyes: No Eye Pain, No Swelling, No Redness Cardiovascular : No Chest Pain, No SOB, No Dyspnea on Exertion, No Orthopnea, No Edema, No Palpitations Respiratory : No Cough, No Sputum, No Wheezing Gastrointestinal : No Nausea, No Vomiting, No Diarrhea, No Constipation, No abdominal Pain, No Hematochezia, No Melena Genitourinary : No Dysuria, No Urinary Frequency, No Hematuria, Musculoskeletal : No joint pain, No Myalgias, No Joint Swelling Skin : No Skin Lesions, No rash Neuro : No Weakness, No Numbness, No Dizziness, No Headache Psych : No Anxiety/Panic, No Depression All other systems reviewed and are negative Yes all other systems are reviewed and are negative [facility] Past Medical History Attestation statement: The following information was validated with the patient. Source: old records reviewed and nursing notes reviewed Onset Date is defined in the Problem List Problems that require an onset date and time if occurred within 24 hrs of arrival to the ED Aortic Dissection and Rupture; Neurologic impairment; Cardiopulmonary Arrest; Endotracheal Intubation; Insertion or Replacement of Mechanical Circulatory Assist Device Medical History Impacted cerumen, left ear Low back strain Morbid obesity Pre-op evaluation Elevated blood pressure reading Infected tooth Normal physical exam Asthma, mild intermittent, poorly controlled Poor historian Asthma attacks lasting more than 24 hours Left upper quadrant abdominal pain Asthma Surgical History History of excision of mass (07/31/23) History of surgery on arm Hx of cholecystectomy Family History Family History Other Substance abuse Social History Social History Household Members: Family Housing: House Alcohol intake: former Patient Tobacco Use Status: Former Tobacco user Quit Date: 2 years e-Cigarette/Vaping Use: Never Used Second Hand Smoke Exposure: No Advance Directives: No service: No Current occupational status: employed and unemployed Current occupation: works nights Current occupational exposures/hazards: No Cognitive needs: No Hearing needs: Yes Vision needs: Yes Physical Exam ED Vital Signs: Vital Signs - 24 hr 10/08/23 12:09 Temperature 97.5 F Pulse Rate 76 Respiratory Rate 18 Blood Pressure 143/96 H Pulse Oximetry 96 Oxygen Delivery Method Room Air BMI result Body Mass Index 46.8 vss Appearance: Alert.? Oriented X3.? No acute distress.? Head: Normocephalic, atraumatic, no step-offs or deformities Eyes: Pupils equal, round and reactive to light.? ENT: Pharynx w. errythema noted to have post nasal drip, uvula midline, no abscess or exudate. No palpable lumps or masses. Speaking in full sentences controlling secretions well. Neck: Normal inspection.? Neck supple.? CVS: Normal heart rate and rhythm.? Pulses normal.? Respiratory: No respiratory distress.? Breath sounds normal.? Abdomen: Soft and nontender.? Skin: Skin warm and dry.? Normal skin color.? Normal skin turgor.? Extremities: No lower extremity edema.? No calf ttp. 5/5 strength to bilateral upper and lower extremities Neuro: Oriented X 3.? No motor deficit.? No sensory deficit. CN 2-12 intact Course Course Course Narrative: This is an RME: Additional HPI, ROS, PE not included below will be deferred to primary provider. This is a 53-year-old male, the history of COPD former 75 pack year smoker, quit 2021, presenting to the emergency department with complaints of sore throat x 3 months. patient was seen here 3 months ago with an unremarkable exam. He has not followed up with his primary care physician. Reports pain with swallowing. Oropharynx appears erythematous, however is patent. Plan: labs, strep, viral swabs Reevaluation(s) Reevaluation #1: Due to length of symptoms will treat with antibiotics. Flu/COVID/RSV negative. Strep negative. [place] negative. I did explain to patient this could be allergic will send him with allergy meds. I also explained to him of this not improve he should follow-up with his PCP malignancy to be ruled out. Educated patient on diagnosis and treatment plan, answered all question, patient verbalizes understanding. At this time patient will be discharged home, advised to return with new or worsening symptoms. Educated on worrisome signs and symptoms and when to return. At this time I feel comfortable discharge home. Time: 16:59 Medical Decision Making Medical Decision Making [facility] Narrative: 53-year-old male presents with a burning sore throat for the past 3 months. Physical exam Pharynx w. errythema noted to have post nasal drip & cobblestoning, uvula midline, no abscess or exudate. No palpable lumps or masses. Speaking in full sentences controlling secretions well. Concerns for allergic pharyngitis versus pharyngitis. Unlikely peritonsillar abscess, retropharyngeal abscess, uvulitis, epiglottitis, threat to airway. No signs of acute respiratory distress. Other differentials include viral illness. Plan at this time viral testing. Differential Diagnosis Differential Diagnoses: The differential diagnosis associated with the presentation includes Concerns for allergic pharyngitis versus pharyngitis. Unlikely peritonsillar abscess, retropharyngeal abscess, uvulitis, epiglottitis, threat to airway. No signs of acute respiratory distress. Other differentials include viral illness. Admission/Observation Consideration of admission/observation: Escalation of care including admission/observation considered Lab Data [facility] Lab Attestation statement: I reviewed the patient's lab results. 10/08/23 13:43 10/08/23 13:43 Labs: Lab Results 10/08/23 Range/Units 13:43 WBC 8.4 (4.8-10.8) X10*3/uL RBC 5.99 H (4.60-5.80) X10*6/uL Hgb 14.8 (14.0-18.0) g/dl Hct 45.7 (42.0-52.0) % MCV 76.3 L (80.0-98.0) fL MCH 24.7 L (27.0-33.0) pg MCHC 32.4 (31.0-36.0) g/dl RDW 15.9 (11.0-16.0) % Plt Count 329 (160-400) X10*3/uL MPV 9.2 L (9.4-12.4) fL Immature Gran % (Auto) 0.8 H (0.0-0.4) % Neut % (Auto) 60.8 (45-73) % Lymph % (Auto) 25.0 (20-40) % [place] % (Auto) 8.0 (2-11) % Eos % (Auto) 4.9 H (0-4) % Baso % (Auto) 0.5 (0-2) % Lymph # (Auto) 2.1 (1.2-4.9) X10*3/uL [place] # (Auto) 0.7 (0.1-1.2) X10*3/uL Eos # (Auto) 0.4 (0.0-0.4) X10*3/uL Baso # (Auto) 0.0 (0.0-0.2) X10*3/uL Abs Immat Gran (auto) 0.07 H (0.00-0.03) X10*3/uL Absolute Neuts (auto) 5.1 (2.0-8.3) x10*3/uL Absolute Nucleated RBC 0.000 (0.0-0.012) X10*3/uL Nucleated RBC % (auto) 0.0 (0.0-0.2) /100WBC Sodium 140 (135-145) mmol/L Potassium 4.3 (3.3-5.1) mmol/L Chloride 106 (96-108) mmol/L Carbon Dioxide 27 (22-29) mmol/L Anion Gap 11 L (12-20) BUN 14 (9-16) mg/dL Creatinine 0.82 (0.5-1.4) mg/dL Estim Creat Clear Calc 122.2 Estimated GFR > 60 Random Glucose 110 (60-115) mg/dL Calcium 9.5 (8.4-10.2) mg/dL Total Bilirubin 0.4 (0.0-1.0) mg/dL Direct Bilirubin 0.1 (0.0-0.5) mg/dL AST 24 (5-37) U/L ALT 22 (0-40) U/L Alkaline Phosphatase 80 (39-117) U/L Total Protein 7.9 (6.5-8.0) g/dL Albumin 4.4 (3.5-5.0) g/dL TSH 2.28 (0.32-4.0) uIU/mL Monoscreen Negative (Negative) Influenza Type A (PCR) NEGATIVE (Negative) Influenza Type B (PCR) NEGATIVE (Negative) RSV RNA Qual (PCR) NEGATIVE (Negative) SARS-CoV-2 RNA (RT-PCR) NEGATIVE (Negative) S. pyogenes GrpA HAN Negative (Negative) Tests considered The following testing was considered but not selected: No signs of threat to airway no indication for imaging Discharge Plan Discharge Clinical Impression: Sore throat, Allergies Patient Disposition: Home, Self-Care Instructions: Pharyngitis (ED), Allergy Testing (ED) Additional Instructions: Take your medications as prescribed. If you were prescribed antibiotics today, it is important that you take your medication to their entirety, do not skip any doses, do not finish them early. Follow-up with your primary care provider this week. Return to the emergency department with new or worsening symptoms. Such as fevers, chills, chest pain, shortness of breath, nausea, vomiting, dizziness, headache, vision changes, lethargy In case of emergency call 911 Flu/covid/rsv strep negative Cyrus mariluz medicamentos seg?n lo recetado. Si hoy te recetaron antibi?ticos, es importante que tomes tu medicaci?n en montanez totalidad, no te saltes ninguna dosis, no las termines antes de tiempo. Rip un seguimiento con montanez proveedor de atenci?n primaria esta semana. Regrese al departamento de emergencias si los s?ntomas son nuevos o empeoran. [place] fiebre, escalofr?os, dolor de pecho, dificultad para respirar, n?useas, v?mitos, mareos, dolor de keith, cambios en la visi?n, letargo. En jackie de emergencia llame al 911. Gripe/covid/estreptococo rsv negativo Prescriptions: New loratadine 10 mg tablet 10 mg PO DAILY Qty: 30 0RF amoxicillin-pot clavulanate 875-125 mg tablet 1 tab PO BID 7 Days Qty: 14 0RF No Action albuterol sulfate 1.25 mg/3 mL solution for nebulization 1.25 mg inhalation Q4H 30 Days Qty: 540 5RF albuterol sulfate [Ventolin HFA] 90 mcg/actuation HFA aerosol inhaler 2 puff inhalation Q4-6H PRN (Reason: shortness of breath or wheezing) Qty: 8 5RF Anoro Ellipta 62.5-25 mcg/actuation blister with device 1 inh inhalation DAILY 30 Days Qty: 1 6RF amlodipine [Norvasc] 10 mg tablet 10 mg PO DAILY 90 Days Qty: 90 1RF atorvastatin 40 mg tablet 40 mg PO BEDTIME 90 Days Qty: 90 1RF hydrochlorothiazide 12.5 mg tablet 12.5 mg PO DAILY 90 Days Qty: 90 1RF azithromycin 250 mg tablet See Rx Instructions PO .COMPLEX Qty: 6 0RF Rx Instructions: For 250 mg dose pack: take 500 mg today (day 1), then 250 mg for 4 days (days 2-5) benzonatate 100 mg capsule 100 mg PO TID PRN (Reason: cough) Qty: 14 0RF melatonin 3 mg capsule 3 mg PO BEDTIME PRN (Reason: sleep) 30 Days Qty: 30 2RF (DME) blood pressure kit-extra large Kit See Rx Instructions .Route Qty: 1 0RF Rx Instructions: As directed miscellaneous medical supply Misc See Rx Instructions miscellaneous .COMPLEX Qty: 1 0RF Rx Instructions: air purifier for personal use as directed; docusate sodium [Colace] 100 mg capsule 200 mg PO BEDTIME Qty: 60 5RF Referrals: [facility] [Primary Care Provider] - 2 days
[2023-10-08 13:50] LABS: MANUAL DIFF FLAG NO
[2023-10-08 13:52] LABS: Basophils Percent Auto 0.5 % (0-2); Eosinophils Absolute Auto 0.4 X10*3/uL (0.0-0.4); Eosinophils Percent Auto 4.9 % (0-4); Hematocrit 45.7 % (42.0-52.0); Hemoglobin 14.8 g/dl (14.0-18.0); Imm Gran Abs Auto 0.07 X10*3/uL (0.00-0.03); Imm Gran Pct Auto 0.8 % (0.0-0.4); Lymphocytes Absolute Auto 2.1 X10*3/uL (1.2-4.9); Mean Corpuscular HGB Conc 32.4 g/dl (31.0-36.0); Mean Corpuscular Hemoglobin 24.7 pg (27.0-33.0); Mean Corpuscular Volume 76.3 fL (80.0-98.0); Mean Platelet Volume 9.2 fL (9.4-12.4); Monocytes Absolute Auto 0.7 X10*3/uL (0.1-1.2); Neutrophils Absolute Auto 5.1 x10*3/uL (2.0-8.3); Neutrophils Percent Auto 60.8 % (45-73); Platelet Count 329 X10*3/uL (160-400); Red Blood Count 5.99 X10*6/uL (4.60-5.80); Red Cell Distribution Width 15.9 % (11.0-16.0); White Blood Count 8.4 X10*3/uL (4.8-10.8)
[2023-10-08 14:02] LABS: IDNOW Serial# 08D9AD1C; Strep A Nucleic Acid Negative (Negative)
[2023-10-08 14:10] LABS: Monotest Negative (Negative)
[2023-10-08 14:18] LABS: Alanine Aminotransferase 22 U/L (0-40); Albumin Level 4.4 g/dL (3.5-5.0); Alkaline Phosphatase 80 U/L (39-117); Anion Gap 11 (12-20); Aspartate Amino Transferase 24 U/L (5-37); Bilirubin Direct 0.1 mg/dL (0.0-0.5); Bilirubin Total 0.4 mg/dL (0.0-1.0); Blood Urea Nitrogen 14 mg/dL (9-16); Calcium 9.5 mg/dL (8.4-10.2); Carbon Dioxide 27 mmol/L (22-29); Chloride 106 mmol/L (96-108); Creatinine Clr Calc Pharmacy 122.2; Estimated Glomerular Filt Rate > 60; Glucose Random 110 mg/dL (60-115); Potassium 4.3 mmol/L (3.3-5.1); Sodium 140 mmol/L (135-145); Total Protein 7.9 g/dL (6.5-8.0)
[2023-10-08 14:31] LABS: Influenza A PCR NEGATIVE (Negative); Influenza B PCR NEGATIVE (Negative); Resp Syncy Virus RNA Qual PCR NEGATIVE (Negative); SARS COV2 PCR INHOUSE NEGATIVE (Negative); TSH reflex Free T4 2.28 uIU/mL (0.32-4.0)
== END 2023-10-08 17:06 | disposition home or self-care (01) ==
PROVIDERS: Physician Assistant Medical; Emergency Provider Emergency Medicine
DX: J02.8 Acute pharyngitis due to other specified organisms (principal); Z91.09 Other allergy status, other than to drugs and biological substances; Z20.822 Contact with and (suspected) exposure to COVID-19; Z20.828 Contact with and (suspected) exposure to other viral communicable diseases; Z87.891 Personal history of nicotine dependence
CPT/HCPCS: 0241U; 80048; 80076; 84443; 85025; 86308; 87651; 99283; 99284

== ENCOUNTER 2023-10-21 09:51 | Outpatient (AMB) | payer OTHER, SELFPAY ==
[2023-10-21 09:58] VITALS: BP 177/98; PULSE 72
--- NOTE | 2023-10-21 09:58 | MHC.OFFVIS ---
Intake Vital Signs 10/21/23 09:58 Weight 262 lb BP 177/98 H Blood Pressure Location Rt radial Position Sitting Pulse 72 Intake Visit Reasons: Lt chest nodule Intake Note: Patient here c/o new growth on Lt chest. First noticed 2m ago. Patient c/o: tenderness to touch. Patient worried because this is how the other growth on rt side looked like. Patient was last seen for Rt subareolar mass in August 2023. 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 He had a similar process on the right side which was excised several months ago. Because of progression of symptoms, he wished to have this evaluated and excised. He denies any other breast issues or complaints. Workup from the contralateral right side was all negative and was benign pathology. [facility] Medical History Impacted cerumen, left ear Low back strain Morbid obesity Pre-op evaluation Elevated blood pressure reading Infected tooth Normal physical exam Asthma, mild intermittent, poorly controlled Poor historian Asthma attacks lasting more than 24 hours Left upper quadrant abdominal pain Asthma Surgical History History of excision of mass (07/31/23) History of surgery on arm Hx of cholecystectomy Family History Other Substance abuse Social History Household Members: Family Housing: House Alcohol intake: former Patient Tobacco Use Status: Former Tobacco user Quit Date: 2 years e-Cigarette/Vaping Use: Never Used Second Hand Smoke Exposure: No service: No Current occupational status: employed and unemployed Current occupation: works nights Current occupational exposures/hazards: No Cognitive needs: No Hearing needs: Yes Vision needs: Yes Physical Exam Vital Signs: Last Vital Signs Pulse 72 10/21/23 09:58 BP 177/98 H 10/21/23 09:58 Neck Other: No cervical periclavicular or axillary adenopathy bilaterally. Chest Other: Chest breath sounds bilaterally, HS 1 and 2. Right chest demonstrates well-healed ashley areolar scar from prior excision. Left subareolar area demonstrates a tender soft mass consistent with gynecomastia similar to the contralateral (right) side. Assessment & Plan Assessment & Plan (1) Breast mass, left: Code(s): N63.20 - Unspecified lump in the left breast, unspecified quadrant Plan Because this is symptomatic similar to the right side, patient wishes to undergo excision of the left subareolar breast mass. Risks, benefits, alternatives of the procedure were reviewed with the patient and included but not limited to bleeding, infection, recurrence, numbness, pain, scarring, seroma formation and the patient wishes to proceed. All questions answered. Arrangements were made for this. Coding Level of Care Code Est Pt Level 5 (62069) Diagnoses Breast mass, left N63.20
== END 2023-10-21 10:23 | disposition home or self-care (01) ==
PROVIDERS: Visit Provider Surgery
DX: N63.20 Unspecified lump in the left breast, unspecified quadrant (principal)
CPT/HCPCS: 99214

== ENCOUNTER → 2023-10-21 09:51 | Outpatient (BNVA) | payer OTHER, SELFPAY | PROVIDERS: Visit Provider Surgery | DX: N63.42 Unspecified lump in left breast, subareolar (principal) | CPT/HCPCS: 99212 ==

== ENCOUNTER 2023-11-01 05:40 | Day surgery (SDC) | payer OTHER, SELFPAY ==
[2023-10-30 11:17] VITALS: BMI 46.4
--- NOTE | 2023-11-01 05:21 | MHC.SHP ---
Pre-Procedural Eval Section A Date of Service: 11/01/23 The patient is an INPATIENT: No Changes since office visit: No Cold of Flu in the past 2 weeks, No New Medical Problems, No Changes in Medication and No Patient answered all questions The History & Physical has been completed within 30 days and I have reviewed it.: Yes Section B Chief Complaint: Unspecified lump in the left breast, unspecified q Allergies: Allergies Allergy/AdvReac Type Severity Reaction Status Date / Time lisinopril AdvReac Cough Verified 10/21/23 10:00 Plan I have reviewed the history and physical and performed a pertinent physical examination on my patient. No changes have occurred unless specified. Time Spent With Patient Time: Total time managing care of this patient today ____ minutes.
[2023-11-01 06:03] VITALS: BMI 46.6
[2023-11-01 06:05] VITALS: BP 166/92; PULSE 72; RESP 18; TEMP 36.9; O2SAT 96
[2023-11-01] MEDS: Lactated Ringers 1,000 ML 100 ML IVCONT (06:20)
--- NOTE | 2023-11-01 07:20 | HO.ANESPROP2 ---
Documented by User: Jumana Amato NP 10/31/23 09:48 HPI - Anesthesia Eval Consult details Narrative: 53yo M for Left Wide Local Excision Sub-Areolar Breast Mass s/p right side 07/2023 with GA-LMA 5 Follows [facility] [place] pulmo Last office visit 04/2023. Asthma/COPD. 75 pack year hx. Quit and symptoms controlled with inhalers per office visit note PMFSH Active Problems Active Problems: All Active Problems (Updated 10/09/23 @ 00:02 by Brandon Cai) Breast mass, left (Acute) Bilateral leg cramps (Acute) Sore throat (Acute) Hypertension (Acute) Breast mass, right (Acute) Cyst of right breast (Acute) Sleep disturbance (Acute) Rib fractures (Acute) HTN, goal below 130/80 (Acute) High cholesterol (Acute) Chronic constipation (Acute) MCCLELLAN (dyspnea on exertion) (Acute) COPD (chronic obstructive pulmonary disease) (Acute) Acid reflux (Acute) Forgetfulness (Acute) Asthma (Acute) Past Medical History Medical History Impacted cerumen, left ear Low back strain Morbid obesity Pre-op evaluation Elevated blood pressure reading Infected tooth Normal physical exam Asthma, mild intermittent, poorly controlled Poor historian Asthma attacks lasting more than 24 hours Left upper quadrant abdominal pain Asthma Family History Family History Other Substance abuse Family history of problems with anesthesia: No Surgical History Surgical History (Updated 10/30/23 @ 11:15 by Kavita Callahan RN) History of excision of mass (07/31/23) History of surgery on arm Hx of cholecystectomy History of Problems with Anesthesia: No Social History Social History Household Members: Family Housing: House Alcohol intake: former Patient Tobacco Use Status: Former Tobacco user Quit Date: 2 years e-Cigarette/Vaping Use: Never Used Second Hand Smoke Exposure: No Are you DNR?: No Advance Directives: No Advance Directives Information Provided: Yes Nutrition Risks: No Nutritional Risk service: No Current occupational status: employed and unemployed Current occupation: works nights Current occupational exposures/hazards: No Cognitive needs: No Hearing needs: Yes Vision needs: Yes Meds Allergies Allergy/AdvReac Type Severity Reaction Status Date / Time lisinopril AdvReac Cough Verified 10/21/23 10:00 Exam Height,Weight and Vital Signs: Height 5 ft 3 in Weight 118.841 kg Pertinent Lab Results Pertinent Lab Results: Laboratory Tests 10/08/23 13:43 WBC 8.4 Hgb 14.8 Hct 45.7 Plt Count 329 Sodium 140 Potassium 4.3 Chloride 106 Carbon Dioxide 27 BUN 14 Creatinine 0.82 Assessment and Plan Assessment Anesthesia Assessment: Chart Reviewed Final Anesthetic Review Family History of Problems with Anesthesia: No History of Problems with Anesthesia: No Documented by User: Malka Xavier DO 11/01/23 07:23 PMFSH Past Medical History Medical History Impacted cerumen, left ear Low back strain Morbid obesity Pre-op evaluation Elevated blood pressure reading Infected tooth Normal physical exam Asthma, mild intermittent, poorly controlled Poor historian Asthma attacks lasting more than 24 hours Left upper quadrant abdominal pain Asthma Family History Family History Other Substance abuse Family history of problems with anesthesia: No Surgical History Surgical History (Updated 10/30/23 @ 11:15 by Kavita Callahan RN) History of excision of mass (07/31/23) History of surgery on arm Hx of cholecystectomy History of Problems with Anesthesia: No Social History Social History Household Members: Family Housing: House Alcohol intake: former Patient Tobacco Use Status: Former Tobacco user Quit Date: 2 years e-Cigarette/Vaping Use: Never Used Second Hand Smoke Exposure: No Are you DNR?: No Advance Directives: No Advance Directives Information Provided: Yes Nutrition Risks: No Nutritional Risk service: No Current occupational status: employed and unemployed Current occupation: works nights Current occupational exposures/hazards: No Cognitive needs: No Hearing needs: Yes Vision needs: Yes Meds Allergies Allergy/AdvReac Type Severity Reaction Status Date / Time lisinopril AdvReac Cough Verified 10/21/23 10:00 Exam Exam Date and Time: November 01, 2023 0715 Height,Weight and Vital Signs: Height 5 ft 3 in Weight 118.841 kg Vital Signs Temperature 98.4 F 11/01/23 06:05 Pulse Rate 72 11/01/23 06:05 Respiratory Rate 18 11/01/23 06:05 Blood Pressure 166/92 H 11/01/23 06:05 Pulse Oximetry 96 11/01/23 06:05 Oxygen Delivery Method Room Air 11/01/23 06:05 Temperature 98.4 F 11/01/23 06:05 Pulse Rate 72 11/01/23 06:05 Respiratory Rate 18 11/01/23 06:05 Blood Pressure 166/92 H 11/01/23 06:05 Pulse Oximetry 96 11/01/23 06:05 Oxygen Delivery Method Room Air 11/01/23 06:05 Airway Mallampati Class: III TM Dist: >3cm Neck ROM: Full Loose/Missing/Broken Teeth: Yes (several missing teeth) Heart: S1S2 Lungs: CTAB Assessment and Plan Assessment Anesthesia Assessment: Anesthesia Plan Discussed and Chart Reviewed Final Anesthetic Review Family History of Problems with Anesthesia: No History of Problems with Anesthesia: No NPO: Yes ASA Class: III Final Preanesthetic Review: No Changes in Pt Med Stat, Meds/Allgs Chart Reviewed, Consent Obtained/Reviewed and Anes Risks/Benef Reviewed Patient Risk: Intermediate Procedure Risk: Low Anesthetic Plan Anesthetic Plan: MAC: and Agree w/ Assess. and Plan Disposition: Standard PACU
[2023-11-01 08:00] VITALS: BP 121/75; PULSE 68; RESP 14; TEMP 36.7; O2SAT 95
[2023-11-01 08:15] VITALS: BP 132/84; PULSE 81; RESP 16; O2SAT 95
[2023-11-01 08:30] VITALS: BP 131/91; PULSE 77; RESP 18; TEMP 36.8; O2SAT 95
--- NOTE | 2023-11-01 09:30 | W.PM.OPN ---
Operative Note Operative Note Date of Service: 11/01/23 Narrative: Preoperative diagnosis: [] Left subareolar breast mass Postop diagnosis: [] Same Procedure [] wide local excision left subareolar breast mass Surgeon: [] Malachi Fisher Pound Net Or Trap: [] Vito Type of Anesthesia: [] MAC Indication for surgery: [] Approximately 4 x 3 cm subareolar left breast mass. Patient had a similar mass excised from the right/contralateral breast several months ago consistent with gynecomastia/benign. Findings: [] Patient brought to the operating room, placed on operative table in supine position, after an adequate level of MAC anesthesia was induced, the left chest was prepped and draped in usual sterile fashion. Using a supra areolar curvilinear incision, this carried down through skin, subcutaneous tissue, were superior and inferior skin flaps were developed and uneventful excision of the subareolar soft tissue mass was performed using Bovie. Specimen sent to pathology. Wound was irrigated, secured hemostasis, and closed using interrupted inverted dermal 3-0 Vicryl sutures followed by Steri-Strips and sterile dressings. Wound was infiltrated 0.5% Marcaine/1% lidocaine at the beginning of the end of the procedure. Sponge, needle, and instrument counts reported correct. Patient tolerated the procedure well and emerged anesthesia stable condition. EBL minimal
== END 2023-11-01 09:14 | disposition home or self-care (01) ==
PROVIDERS: Visit Provider Surgery
PROC: (CPT 19120; principal; 2023-11-01 07:30)
DX: N63.42 Unspecified lump in left breast, subareolar (principal); N60.42 Mammary duct ectasia of left breast; N62 Hypertrophy of breast; N64.89 Other specified disorders of breast; I10 Essential (primary) hypertension; J44.9 Chronic obstructive pulmonary disease, unspecified; J45.20 Mild intermittent asthma, uncomplicated; E66.01 Morbid (severe) obesity due to excess calories; Z79.899 Other long term (current) drug therapy; Z88.8 Allergy status to other drugs, medicaments and biological substances; Z90.49 Acquired absence of other specified parts of digestive tract; Z98.890 Other specified postprocedural states; Z87.891 Personal history of nicotine dependence
CPT/HCPCS: 19120; 88304; 88305; J0665; J0690; J2250; J2704; J3010

== ENCOUNTER → 2023-11-01 05:40 | Outpatient (BNV) | payer OTHER, SELFPAY | PROVIDERS: Visit Provider Surgery | DX: N62 Hypertrophy of breast (principal) | CPT/HCPCS: 19120 ==

== ENCOUNTER 2023-11-12 10:18 | Outpatient (AMB) | payer OTHER, SELFPAY ==
[2023-11-12 10:41] VITALS: BP 165/98; PULSE 78
--- NOTE | 2023-11-12 10:41 | MHC.OFFVIS ---
Intake Vital Signs 11/12/23 10:41 Weight 265 lb BP 165/98 H Blood Pressure Location Rt brachial Position Sitting Pulse 78 Intake Visit Reasons: S/P Lt. sub-areolar breast mass Intake Note: Patient here s/p Lt subareolar breast mass on 11-01-23. Patient c/o: severe pain. Swollen, tender to touch. Air Conditioning Technician Required: No Accompanied by: Self / Same As Patient Allergies lisinopril Adverse Reaction (Verified 11/12/23 10:43) Cough HPI HPI Comments History of Present Illness Details 1. Patient presents for follow-up status post left subareolar breast mass excision 2. Patient has symptomatic umbilical hernia. 1. Pathology is benign. Patient has incisional discomfort which is improving. No other wound issues or complaints. 2. Umbilical hernias been present indeterminate time. His increasing in size and patient wishes to have it repaired. He has no other GI issues or complaints. [facility] Medical History Impacted cerumen, left ear Low back strain Morbid obesity Pre-op evaluation Elevated blood pressure reading Infected tooth Normal physical exam Asthma, mild intermittent, poorly controlled Poor historian Asthma attacks lasting more than 24 hours Left upper quadrant abdominal pain Asthma Surgical History History of excision of mass (07/31/23) History of surgery on arm Hx of cholecystectomy Family History Other Substance abuse Social History Household Members: Family Housing: House Alcohol intake: former Patient Tobacco Use Status: Former Tobacco user Quit Date: 2 years e-Cigarette/Vaping Use: Never Used Second Hand Smoke Exposure: No service: No Current occupational status: employed and unemployed Current occupation: works nights Current occupational exposures/hazards: No Cognitive needs: No Hearing needs: Yes Vision needs: Yes Physical Exam Vital Signs: Last Vital Signs Pulse 78 11/12/23 10:41 BP 165/98 H 11/12/23 10:41 Chest Other: Chest breath sounds bilaterally, left areolar incision clean dry and intact healing uneventfully. HS 1 in 2 GI Other: Abdomen very corpulent, soft, benign. Approximate 2 cm incarcerated umbilical hernia. Groin exam negative. Assessment & Plan Assessment & Plan (1) Umbilical hernia, incarcerated: Code(s): K42.0 - Umbilical hernia with obstruction, without gangrene (2) Breast mass, left: Code(s): N63.20 - Unspecified lump in the left breast, unspecified quadrant Plan 1. Patient has been given local wound instructions regarding left breast surgery. 2. Risks, benefits, alternatives of open umbilical hernia repair with mesh reviewed with the patient and included but not limited to bleeding, infection, recurrence, numbness, pain, scarring the patient was to proceed. All questions answered. Arrangements were made for this. Coding Level of Care Code Est Pt Level 5 (69976) Global (52814) Diagnoses Umbilical hernia, incarcerated K42.0 Breast mass, left N63.20
== END 2023-11-12 10:59 | disposition home or self-care (01) ==
PROVIDERS: Visit Provider Surgery
DX: K42.0 Umbilical hernia with obstruction, without gangrene (principal)
CPT/HCPCS: 99214

== ENCOUNTER → 2023-11-12 10:18 | Outpatient (BNVA) | payer OTHER, SELFPAY | PROVIDERS: Visit Provider Surgery | DX: Z48.817 Encounter for surgical aftercare following surgery on the skin and subcutaneous tissue (principal); K42.0 Umbilical hernia with obstruction, without gangrene | CPT/HCPCS: 99212 ==

== ENCOUNTER 2023-12-12 10:08 | Day surgery (SDC) | payer OTHER, SELFPAY ==
--- NOTE | 2023-12-10 12:10 | P.CONAN_ITS ---
Documented by User: Jumana Amato NP 12/10/23 12:11 HPI - Anesthesia Eval Consult details Narrative: 53yo M for Open Incarcerated Umbilical Hernia with Mesh s/p breast mass excision 10/2023 with MAC [place] [facility] Last office visit 04/2023. Asthma/COPD. 75 pack year hx. Quit a nd symptoms controlled with inhalers per office visit note PMFSH Active Problems Active Problems: All Active Problems (Updated 10/09/23 @ 00:02 by Brandon Cai) Umbilical hernia, incarcerated (Acute) Breast mass, left (Acute) Bilateral leg cramps (Acute) Sore throat (Acute) Hypertension (Acute) Breast mass, right (Acute) Cyst of right breast (Acute) Sleep disturbance (Acute) Rib fractures (Acute) HTN, goal below 130/80 (Acute) High cholesterol (Acute) Chronic constipation (Acute) MCCLELLAN (dyspnea on exertion) (Acute) COPD (chronic obstructive pulmonary disease) (Acute) Acid reflux (Acute) Forgetfulness (Acute) Asthma (Acute) Past Medical History Medical History (Updated 12/12/23 @ 16:07 by Claudette Panda MD) Breast mass, left Breast mass, right Cyst of right breast Chronic constipation Bilateral leg cramps Sore throat Rib fractures Tachycardia Impacted cerumen, left ear Low back strain Morbid obesity Pre-op evaluation Elevated blood pressure reading Infected tooth Normal physical exam Asthma, mild intermittent, poorly controlled Poor historian Asthma attacks lasting more than 24 hours Left upper quadrant abdominal pain Asthma Family History Family History Other Substance abuse Family history of problems with anesthesia: No Surgical History Surgical History (Updated 12/12/23 @ 16:13 by Claudette Panda MD) Subareolar mass of left breast History of excision of mass (07/31/23) History of surgery on arm Hx of cholecystectomy History of Problems with Anesthesia: No Social History Social History Household Members: Family Housing: House Alcohol intake: former Patient Tobacco Use Status: Former Tobacco user Quit Date: 2 years e-Cigarette/Vaping Use: Never Used Second Hand Smoke Exposure: No Use of substances other than those prescribed or required for medical reasons: No Are you DNR?: No Advance Directives: No Advance Directives Information Provided: Yes service: No Current occupational status: employed and unemployed Current occupation: works nights Current occupational exposures/hazards: No Cognitive needs: No Hearing needs: Yes Vision needs: Yes Meds Allergies Allergy/AdvReac Type Severity Reaction Status Date / Time lisinopril AdvReac Cough Verified 11/12/23 10:43 Exam Pertinent Lab Results Pertinent Lab Results: Laboratory Tests 10/08/23 13:43 WBC 8.4 Hgb 14.8 Hct 45.7 Plt Count 329 Sodium 140 Potassium 4.3 Chloride 106 Carbon Dioxide 27 BUN 14 Creatinine 0.82 Assessment and Plan Assessment Anesthesia Assessment: Chart Reviewed Final Anesthetic Review Family History of Problems with Anesthesia: No History of Problems with Anesthesia: No Documented by User: Claudette Panda MD 12/12/23 16:13 [facility] Active Problems Active Problems: All Active Problems (Updated 12/12/23 @ 14:07 by Claudette Panda MD) Umbilical hernia, incarcerated (Acute) Bilateral leg pain sometimes Hypertension Insomnia HTN, goal below 130/80 (Acute) High cholesterol (Acute) MCCLELLAN (dyspnea on exertion) (Acute) COPD Acid reflux (Acute) Forgetfulness (Acute) Asthma (Acute). H/o status asthmaticus Morbid obesity BMI 48 Denies MAEGAN. Sleeping and had to be aroused from sleep- easily woken up. Left Wide Local Excision Sub-Areolar Breast Mass Past Medical History Medical History (Updated 12/12/23 @ 16:07 by Claudette Panda MD) Breast mass, left Breast mass, right Cyst of right breast Chronic constipation Bilateral leg cramps Sore throat Rib fractures Tachycardia Impacted cerumen, left ear Low back strain Morbid obesity Pre-op evaluation Elevated blood pressure reading Infected tooth Normal physical exam Asthma, mild intermittent, poorly controlled Poor historian Asthma attacks lasting more than 24 hours Left upper quadrant abdominal pain Asthma Family History Family History Other Substance abuse Family history of problems with anesthesia: No Surgical History Surgical History (Updated 12/12/23 @ 16:13 by Claudette Panda MD) Subareolar mass of left breast History of excision of mass (07/31/23) History of surgery on arm Hx of cholecystectomy History of Problems with Anesthesia: Yes (Very bad sore throat after LMA) Social History Social History Household Members: Family Housing: House Alcohol intake: former Patient Tobacco Use Status: Former Tobacco user Quit Date: 2 years e-Cigarette/Vaping Use: Never Used Second Hand Smoke Exposure: No Use of substances other than those prescribed or required for medical reasons: No Are you DNR?: No Advance Directives: No Advance Directives Information Provided: Yes service: No Current occupational status: employed and unemployed Current occupation: works nights Current occupational exposures/hazards: No Cognitive needs: No Hearing needs: Yes Vision needs: Yes Meds Allergies Allergy/AdvReac Type Severity Reaction Status Date / Time lisinopril AdvReac Cough Verified 11/12/23 10:43 Exam Height,Weight and Vital Signs: Height 5 ft 3 in Weight 122.924 kg Vital Signs Temp Pulse Resp BP Pulse Ox O2 Del Method 12/12/23 12:50 73 154/102 H 12/12/23 12:49 98.2 F 81 18 163/110 H 95 Room Air Airway Mallampati Class: III TM Dist: >3cm Neck ROM: Full Loose/Missing/Broken Teeth: Yes (Many missing teeth. Denies loose) Heart: RRR Lungs: CTAB Assessment and Plan Assessment Anesthesia Assessment: Anesthesia Plan Discussed and Chart Reviewed Final Anesthetic Review Family History of Problems with Anesthesia: No History of Problems with Anesthesia: Yes (Very bad sore throat after LMA) NPO: Yes ASA Class: III Final Preanesthetic Review: No Changes in Pt Med Stat, Meds/Allgs Chart Reviewed, Consent Obtained/Reviewed and Anes Risks/Benef Reviewed Patient Risk: Intermediate Procedure Risk: Intermediate Assessment/Block/Sedation in SS: Assess/Block/Sedation-SS Anesthetic Plan Anesthetic Plan: GA (Patient had bad sore throat after one of his surgeries. Initially refusing surgery if possibility of GA but after explanation that would begin with MAC and only have GA as back up, agrees with plan. Consent signed.) and TIVA Disposition: Standard PACU
--- NOTE | 2023-12-11 10:44 | MHC.SHP ---
Pre-Procedural Eval Section A - 24 Hr Update-Section A only Date of Service: 12/11/23 The patient is an INPATIENT: No Changes since office visit: No Cold of Flu in the past 2 weeks, No New Medical Problems, No Changes in Medication and No Patient answered all questions The patient has been examined within 24 hours of the surgical procedure. The History & Physical has been completed within 30 days and I have reviewed it.: Yes Section B - Complete if H&P > 30 days Chief Complaint: Umbilical hernia with obstruction, without gangren Allergies: Allergies Allergy/AdvReac Type Severity Reaction Status Date / Time lisinopril AdvReac Cough Verified 11/12/23 10:43 Plan I have reviewed the history and physical and performed a pertinent physical examination on my patient. No changes have occurred unless specified. Time Spent With Patient Time: Total time managing care of this patient today ____ minutes.
[2023-12-12] VITALS (8 sets, daily range): BP systolic 115–163; BP diastolic 68–110; PULSE 67–81; RESP 14–18; TEMP 36.3–36.8; O2SAT 92–97; BMI 48.0
[2023-12-12] MEDS: Lactated Ringers 1,000 ML 100 ML IVCONT (13:04)
--- NOTE | 2023-12-12 15:40 | MHC.SHP ---
Pre-Procedural Eval Section A - 24 Hr Update-Section A only Date of Service: 12/12/23 The patient is an INPATIENT: No Changes since office visit: No Cold of Flu in the past 2 weeks, No New Medical Problems, No Changes in Medication and No Patient answered all questions The patient has been examined within 24 hours of the surgical procedure. The History & Physical has been completed within 30 days and I have reviewed it.: Yes Section B - Complete if H&P > 30 days Chief Complaint: Umbilical hernia with obstruction, without gangren Allergies: Allergies Allergy/AdvReac Type Severity Reaction Status Date / Time lisinopril AdvReac Cough Verified 11/12/23 10:43 Plan I have reviewed the history and physical and performed a pertinent physical examination on my patient. No changes have occurred unless specified. Time Spent With Patient Time: Total time managing care of this patient today ____ minutes.
--- NOTE | 2023-12-12 17:00 | W.PM.OPN ---
Operative Note Operative Note Date of Service: 12/12/23 Narrative: Preoperative diagnosis: [] Incarcerated umbilical hernia Postop diagnosis: [] The same Procedure [] open repair incarcerated umbilical hernia with Bard mesh Surgeon: [] Malachi Commercial Trailer Truck Driver: [] Vito Type of Anesthesia: [] LMA Indication for surgery: [] apProximally 3 cm incarcerated umbilical hernia with omental contents .very corpulent abdomen Findings: [] Patient brought to the operating room, placed on operative table in supine position, after adequate level of LMA anesthesia was induced, the patient's abdomen was prepped and draped in usual sterile fashion. Using a supraumbilical curvilinear incision, this carried down through skin, subcutaneous tissue, hernia sac was identified and circumferentially dissected down to the fascia and dissected off the posterior aspect of the umbilicus. Sac was opened were incarcerated omental contents and sac were amputated. Fascia margins were circumferentially cleared. A Bard mesh was placed in the defect and the superficial layer of the mesh was circumferentially sutured to the surrounding fascia using interrupted 0 Ethibond suture. At completion of procedure, mesh was in good position with no tension and no gallops. Wound was irrigated, secured hemostasis, and closed in the following manner; posterior aspect of the umbilicus was tacked to the wound floor using interrupted 3-0 Vicryl sutures. Skin was closed using interrupted inverted dermal 3-0 Vicryl sutures followed by Steri-Strips and sterile dressings. Wound was infiltrated at beginning at the end of the case with 1% lidocaine/0.5% Marcaine. Sponge, needle, and instrument counts were reported correct. Patient tolerated the procedure well and emerged from anesthesia stable condition. EBL minimal
== END 2023-12-12 17:35 | disposition home or self-care (01) ==
PROVIDERS: Visit Provider Surgery
PROC: (CPT 49592; principal; 2023-12-12 13:20)
DX: K42.0 Umbilical hernia with obstruction, without gangrene (principal); J44.9 Chronic obstructive pulmonary disease, unspecified; J45.20 Mild intermittent asthma, uncomplicated; R03.0 Elevated blood-pressure reading, without diagnosis of hypertension; E66.01 Morbid (severe) obesity due to excess calories; Z88.8 Allergy status to other drugs, medicaments and biological substances; Z90.49 Acquired absence of other specified parts of digestive tract; Z87.891 Personal history of nicotine dependence
CPT/HCPCS: 49592; 88304; C1781; J0665; J0690; J2405; J2704; J3010

== ENCOUNTER → 2023-12-12 10:08 | Outpatient (BNV) | payer OTHER, SELFPAY | PROVIDERS: Visit Provider Surgery | DX: K42.0 Umbilical hernia with obstruction, without gangrene (principal) | CPT/HCPCS: 49594 ==

== ENCOUNTER 2023-12-23 08:31 | Outpatient (AMB) | payer OTHER, SELFPAY ==
[2023-12-23 09:06] VITALS: BP 174/99; PULSE 74
--- NOTE | 2023-12-23 09:06 | A.OFFVIS_ITS ---
Intake Vital Signs 12/23/23 09:06 Weight 267 lb BP 174/99 H Blood Pressure Location Rt brachial Position Sitting Pulse 74 Intake Visit Reasons: S/P open incarcerated umbilical hernia w/mesh Intake Note: Patient here s/p open incarcerated umbilical hernia w/mesh. Reports incisions healing well. Patient c/o: sumit strip fell off SX: 12-12-23. [employer] Required: Yes [employer] Teacher Name: Fátima JACKSON Accompanied by: Self / Same As Patient Allergies lisinopril Adverse Reaction (Verified 12/23/23 09:07) Cough HPI HPI Comments History of Present Illness Details Patient presents for follow-up. He has no wound issues or complaints. He has tolerating a diet. Having regular bowel habits. Increase his activity level. [facility] Medical History Breast mass, left Breast mass, right Cyst of right breast Chronic constipation Bilateral leg cramps Sore throat Rib fractures Tachycardia Impacted cerumen, left ear Low back strain Morbid obesity Pre-op evaluation Elevated blood pressure reading Infected tooth Normal physical exam Asthma, mild intermittent, poorly controlled Poor historian Asthma attacks lasting more than 24 hours Left upper quadrant abdominal pain Asthma Surgical History Umbilical hernia, incarcerated (12/12/23) Subareolar mass of left breast History of excision of mass (07/31/23) History of surgery on arm Hx of cholecystectomy Family History Other Substance abuse Social History Household Members: Family Housing: House Alcohol intake: former Patient Tobacco Use Status: Former Tobacco user Quit Date: 2 years e-Cigarette/Vaping Use: Never Used Second Hand Smoke Exposure: No service: No Current occupational status: employed and unemployed Current occupation: works nights Current occupational exposures/hazards: No Cognitive needs: No Hearing needs: Yes Vision needs: Yes Physical Exam Vital Signs: Last Vital Signs Pulse 74 12/23/23 09:06 BP 174/99 H 12/23/23 09:06 GI Other: Abdomen is soft. Wound clean dry and intact. Assessment & Plan Assessment & Plan (1) Status post umbilical hernia repair, follow-up exam: Code(s): Z09 - Encounter for follow-up examination after completed treatment for conditions other than malignant neoplasm Plan Patient has been given local instructions including avoiding strenuous acti vities for next few weeks time and will otherwise follow-up p.r.n.. All questions answered. Coding Level of Care Code Global (38253) Diagnoses Status post umbilical hernia repair, follow-up exam Z09
== END 2023-12-23 09:10 | disposition home or self-care (01) ==
PROVIDERS: Visit Provider Surgery
DX: Z09 Encounter for follow-up examination after completed treatment for conditions other than malignant neoplasm (principal)
CPT/HCPCS: 99024

== ENCOUNTER → 2023-12-23 08:31 | Outpatient (BNVA) | payer OTHER, SELFPAY | PROVIDERS: Visit Provider Surgery | DX: Z09 Encounter for follow-up examination after completed treatment for conditions other than malignant neoplasm (principal) | CPT/HCPCS: 99212 ==

== ENCOUNTER 2024-01-30 11:51 | Outpatient (AMB) | payer OTHER, SELFPAY ==
--- NOTE | 2024-01-30 12:01 | A.OFFPC_ITS ---
Vital Signs 01/30/24 12:06 Height 5 ft 6 in Weight 219 lb BMI 35.3 BP 166/84 H Blood Pressure Location Lt brachial Position Sitting Pulse 85 Pulse Source Pulse Oximeter Pulse Oximetry (%) 95 Oxygen Delivery Method Room Air Intake Visit Reasons: CHUCKIE from [facility] Intake Note: Patient is here for a physical, patient reports he knows he should be on medications but he says he is out of the medications he was taking. Instruction Librarian Required: No Accompanied by: Self / Same As Patient Allergies lisinopril Adverse Reaction (Verified 01/30/24 12:31) Cough Medication List - Last Reconciled 01/30/24 by Sravani Ledesma, [facility]- albuterol sulfate 1.25 mg (3 mL) inhalation Q4H 1 month amlodipine (Norvasc) 10 mg PO DAILY 90 days atorvastatin 40 mg PO BEDTIME 90 days blood pressure kit-extra large As directed docusate sodium (Colace) 200 mg (2 x 100 mg) PO BEDTIME hydrochlorothiazide 12.5 mg PO DAILY 90 days loratadine 10 mg PO DAILY melatonin 3 mg PO BEDTIME PRN 30 days miscellaneous medical supply air purifier for personal use as directed; umeclidinium-vilanterol 62.5-25 mcg/actuation (Anoro Ellipta) 1 inh inhalation DAILY 30 days Ventolin HFA 90 mcg/actuation (albuterol sulfate) 2 puffs inhalation Q4-6H PRN NS Tobacco use date assessed: 01/30/24 Dental Screening Dental Screen Date: 01/30/24 Did you have a dental visit in the last 12 months?: Yes Did you have a dental problem in the last 6 months where you did not have access to dental care?: No Was dental information given to patient?: Patient has dentist HPI HPI Comments History of Present Illness Details 53-year-old Malay-speaking male hypert ension, COPD, GERD, hyperlipidemia, obesity, bilat renal cysts, fatty liver, bilat breast mass, prediabetes, microalbuminuria s/p open incarcerated umbilical hernia w/mesh 12/2023 Health Maintenance: Colonoscopy referred today Vaccines - Tdap today Specialists GI Pulmonology General surgery Instruction Librarian [id number] Here today to [facility], for a CPE. Labs from October 2023 show normal electrolytes, normal renal function normal LFTs, normal TSH 08/15/2023 lipid panel shows triglyceride s 311, total cholesterol 245, LDL 134, HDL 49 Labs 01/30/2024 she electrolytes, renal function, hemoglobin A1c 6.2% normal LFTs, normal TSH, elevated urine microalbumin creatinine ratio 80.9 [facility] Medical History Breast mass, left Breast mass, right Cyst of right breast Chronic constipation Bilateral leg cramps Sore throat Rib fractures Tachycardia Impacted cerumen, left ear Low back strain Morbid obesity Pre-op evaluation Elevated blood pressure reading Infected tooth Normal physical exam Asthma, mild intermittent, poorly controlled Poor historian Asthma attacks lasting more than 24 hours Left upper quadrant abdominal pain Asthma Surgical History Umbilical hernia, incarcerated (12/12/23) Subareolar mass of left breast History of excision of mass (07/31/23) History of surgery on arm Hx of cholecystectomy Family History Other Substance abuse Social History (Updated 01/30/24 @ 12:24 by Jennifer Bacon [facility]) Household Members: Family Housing: House 75 years or older and lives alone: No Alcohol intake: former Patient Tobacco Use Status: Former Tobacco user Quit Date: 2 years e-Cigarette/Vaping Use: Never Used Second Hand Smoke Exposure: No service: No Current occupational status: employed and unemployed Current occupation: works nights Current occupational exposures/hazards: No Gender identity: Male Cognitive needs: No Hearing needs: Yes Vision needs: Yes Questionnaire PHQ-9 Over the last 2 weeks, how often have you been bothered by any of the following problems? 1. Little interest or pleasure in doing things: more than half the days 2. Feeling down, depressed, or hopeless: several days 3. Trouble falling or staying asleep, or sleeping too much: more than half the days 4. Feeling tired or having little energy: more than half the days 5. Poor appetite or overeating: more than half the days 6. Feeling bad about yourself - or that you are a failure or have let yourself or your family down: more than half the days 7. Trouble concentrating on things, such as reading the newspaper or watching television: several days 8. Moving or speaking so slowly that other people could have noticed. Or the opposite - being so fidgety or restless that you have been moving around a lot more than usual: several days 9. Thoughts that you would be better off or of hurting yourself in some way: not at all Total score: 13 Depression Screening Interpretation: Negative Depression Screening Done: Yes 90999 - PHQ-9 Billing: Yes Source: Developed by Drs. Amauri Pandya, Roselyn Jeong, Nigel Posada and colleagues, with an educational beatrice from [employer]. Thrive Questionnaire Date Thrive assessed: 01/30/24 I am a: Patient What is your living situation today?: I have a steady place to live Within the past 12 months, did the food you bought not last and you didn't have the money to get more?: Never true Within the past 12 months, did you worry whether your food would run out before you got money to buy more?: Never true Do you have trouble paying for medicines?: No Do you have trouble getting transportation to medical appointments?: No Do you have trouble paying your heating and electricity bill?: No Do you have trouble taking care of your child, family member or friend?: No Do you have trouble with day-to-day activities such as bathing, preparing meals, shopping, managing finances, etc.?: No Are you currently unemployed and looking for a job?: No Are you interested in more education?: No Please select the resources that you would like help with: None Currently or been in a relationship where the following occur: no concerns reported THRIVE Score: 0 AUDIT C Alcohol Use Questionnaire (AUDIT-C) 1. How often do you have a drink containing alcohol?: Never 3. How often do you have six or more drinks on one occasion?: Never Total Score: 0 Score Reviewed/Action Taken: Yes DENISHA-7 AMB Questionnaire DENISHA-7 Date DENISHA - 7 assessed: 01/30/24 Feeling nervous, anxious, or on edge: 3 = Nearly every day Not being able to stop or control worryin = More than half the days Worrying too much about different things: 2 = More than half the days Trouble relaxin = Nearly every day Being so restless that it is hard to sit still: 3 = Nearly every day Becoming easily annoyed or irritable: 3 = Nearly every day Feeling afraid as if something awful might happen: 3 = Nearly every day Total DENISHA-7 score (0-4 normal; 5-9 mild; 10-14 moderate; 15-21 severe): 19 Source: Developed by Drs. Amauri Pandya, Roselyn Jeong, Nigel Posada and colleagues, with an educational beatrice from [employer]. DENISHA-7 Assessment Billing DENISHA-7 Assessment Tool: DENISHA-7 Assessment 80549 Review of Systems Const Details: Constitutional: Denies fever. Skin: Denies rash. Eye: Denies eye pain. blurred vision bilat ENMT: Denies sore throat and nasal congestion. left ear feels blocked, like he has wax in it Respiratory: Denies shortness of breath and cough. Gastrointestinal: Denies nausea, vomiting or abdominal pain. Cardiovascular: Denies chest pain and syncope. Genitourinary: Denies dysuria. Musculoskeletal: Denies back pain and extremity pain. L knee pain, comes and goes. Neurologic: Denies headaches, confusion, and weakness. Psychiatric: Denies suicidal thoughts and substance abuse. Allergy/ Immunologic: Denies impaired immunity. Physical exam (Primary Care) Vital Signs: Last Vital Signs Pulse 85 01/30/24 12:06 BP 166/84 H 01/30/24 12:06 Pulse Ox 95 01/30/24 12:06 Oxygen Delivery Method Room Air 01/30/24 12:06 Care Plan Goal for BP management: restart medications Next steps: monitor BP BMI result Body Mass Index 35.3 BMI Assessment/Plan discussion: High BMI High, discussed plan: weight reduction Tobacco/Smoking Status: Tobacco use Status Tobacco use date assessed 01/30/24 01/30/24 12:09 Patient Tobacco Use Status Former Tobacco user 01/30/24 12:24 e-Cigarette/Vaping Use Never Used 01/30/24 12:24 PHQ-9: PHQ-9 Score PHQ-9: Total score 13 01/31/24 07:29 Depression Screening Interpretation: Negative Thrive Assessment: Date of Thrive Assessment Date Thrive assessed 01/30/24 01/30/24 12:31 Currently or been in a relationship where the following occur: no concerns reported Advance Care Planning discussion: Exists, not on file Date of discussion: 01/30/24 Who was present: self Forms completed: Health Care Proxy and MOLST Time spent: 1-15 minutes, not on file Actual minutes spent: 3 Const Other: General: Well developed, well nourished, in no acute distress. Appears stated age. Head: Normocephalic, atraumatic. Eyes: Pupils are equal, round and reactive to light and accommodation. Conjunc tivae are clear. Vision grossly normal. Ears: TMs clear AU, EACS WNL Nose: Patent, without discharge. Mouth: There are no ulcers or lesions noted. No inflammation, no post nasal drip, no plaques nor exudates. Neck: Supple, no adenopathy or thyromegaly. Lungs: Clear to auscultation bilaterally. No rales, rhonchi or wheeze noted. Good air flow in all n[place]. Heart: Regular rate and rhythm. No murmurs, click, rubs or gallops are noted. Abdomen: Bowel sounds present in all quadrants. The abdomen is soft, nontender, with no masses or organomegaly noted. No hernias are noted. obese Musculoskeletal: Joints are nontender, without swelling, redness, or effusions. Range of motion is observed to be normal. c/o pain w/ active and passive ROM left knee. No obvious deformity. Pulses: Peripheral pulses are equal and palpable bilaterally. Extremities: No clubbing, cyanosis nor edema is noted. Neurologic: Gait and station normal. Cranial Nerves 2-12 intact. Motor strength grossly symmetrical and intact. No sensory loss. Balance normal. Skin: No rashes, ulcers, or lesions noted. Turgor is good. Skin color is good. Hair and nails are without abnormalities. Psych: Normal eye contact, affect and mood appropriate, and normal interactions. Patient is alert and appropriate to context. Immunizations Boostrix Tdap 2.5 Lf unit-8 mcg-5 Lf/0.5 mL intramuscular syringe Performing Provider: JAMI Mitchell Performing Location: [facility] Administered by: Akiko Carmona RN on 01/30/24 13:20 Dose Route Admin Location Dispensed Lot Number Expiration Date NDC Rolls Baker 0.5 mL IM Left Deltoid 0.5 mL [id number] 02/08/26 52719-374-83 TIDAL PETROLE[employer] VIS Given Date VIS Provided VIS Publication Date 01/30/24 Single Vaccine 21 Eligibility Eligibility Date Funding Source Not [facility] Eligible 01/30/24 Private Assessment and Plan Assessment & Plan (1) Encounter for general adult medical examination without abnormal findings: Code(s): Z00.00 - Encounter for general adult medical examination without abnormal findings (2) Hypertension: Comment: goal <130/80 restart norvasc 10mg QD & HCTZ 12.5mg po QD Code(s): I10 - Essential (primary) hypertension Qualifiers: Hypertension type: primary hypertension Qualified Code(s): I10 - Essential (primary) hypertension (3) COPD (chronic obstructive pulmonary disease): Comment: stable, without exacerbation active w/ Pulm cont inhalers Code(s): J44.9 - Chronic obstructive pulmonary disease, unspecified Qualifiers: COPD type: chronic bronchitis Chronic bronchitis type: simple Qualified Code(s): J41.0 - Simple chronic bronchitis (4) High cholesterol: Comment: LDL goal < 70 was on atorvastatin 40mg QD but has been w/o restart and monitor labs Code(s): E78.00 - Pure hypercholesterolemia, unspecified (5) Acid reflux: Comment: pantoprazole 40 mg QD Reflux precautions Referred back to GI Code(s): K21.9 - Gastro-esophageal reflux disease without esophagitis Qualifiers: Esophagitis presence: without esophagitis Qualified Code(s): K21.9 - Gastro-esophageal reflux disease without esophagitis (6) Fatty liver: Comment: referred to GI Code(s): K76.0 - Fatty (change of) liver, not elsewhere classified (7) Bilateral renal cysts: Comment: incidental finding on imaging refer to Renal for monitoring Code(s): N28.1 - Cyst of kidney, acquired (8) Morbid obesity with BMI of 45.0-49.9, adult: Comment: BMI > 35 WITH HTN AND HLD Refer to Bariatric surgery Code(s): E66.01 - Morbid (severe) obesity due to excess calories; Z68.42 - Body mass index [BMI] 45.0-49.9, adult (9) Screen for colon cancer: Comment: refer to gi for first screening colon Code(s): Z12.11 - Encounter for screening for malignant neoplasm of colon (10) Blurred vision: Comment: refer for eye exam Code(s): H53.8 - Other visual disturbances (11) Left knee pain: Comment: refer to ortho for eval and tx Code(s): M25.562 - Pain in left knee Qualifiers: Chronicity: chronic Qualified Code(s): M25.562 - Pain in left knee; G89.29 - Other chronic pain (12) Prediabetes: Comment: hga1c 6.2% today referred to bariatric clinic for wt mgmt Code(s): R73.03 - Prediabetes (13) Microalbuminuria: Comment: noted on labs today; restart ACEI , control BP, avoid nephrotoxic agents Code(s): R80.9 - Proteinuria, unspecified Orders: Orders Hemoglobin A1c 01/30/24 E78.00 - Pure hypercholesterolemia, unspecified, I10 - Essential (primary) hypertension, J41.0 - Simple chronic bronchitis, K76.0 - Fatty (change of) liver, not elsewhere classified, N28.1 - Cyst of kidney, acquired, Z00.00 - Encounter for general adult medical examination without abnormal findings LDL Cholesterol Direct 01/30/24 E78.00 - Pure hypercholesterolemia, unspecified, I10 - Essential (primary) hypertension, J41.0 - Simple chronic bronchitis, K76.0 - Fatty (change of) liver, not elsewhere classified, N28.1 - Cyst of kidney, acquired, Z00.00 - Encounter for general adult medical examination without abnormal findings Microalbumin, Random (w Creat) 01/30/24 E78.00 - Pure hypercholesterolemia, unspecified, I10 - Essential (primary) hypertension, J41.0 - Simple chronic bronchitis, K76.0 - Fatty (change of) liver, not elsewhere classified, N28.1 - Cyst of kidney, acquired, Z00.00 - Encounter for general adult medical examination without abnormal findings Vitamin D 1,25 dihydroxy 01/30/24 E78.00 - Pure hypercholesterolemia, unspecified, I10 - Essential (primary) hypertension, J41.0 - Simple chronic bronchitis, K76.0 - Fatty (change of) liver, not elsewhere classified, N28.1 - Cyst of kidney, acquired, Z00.00 - Encounter for general adult medical examination without abnormal findings PSA, Ultra Sensitive 01/30/24 E78.00 - Pure hypercholesterolemia, unspecified, I10 - Essential (primary) hypertension, J41.0 - Simple chronic bronchitis, K76.0 - Fatty (change of) liver, not elsewhere classified, N28.1 - Cyst of kidney, acquired, Z00.00 - Encounter for general adult medical examination without abnormal findings Comprehensive Met. Panel 01/30/24 E78.00 - Pure hypercholesterolemia, unspecified, I10 - Essential (primary) hypertension, J41.0 - Simple chronic bronchitis, K76.0 - Fatty (change of) liver, not elsewhere classified, N28.1 - Cyst of kidney, acquired, Z00.00 - Encounter for general adult medical examination without abnormal findings TSH reflex Free T4 01/30/24 E78.00 - Pure hypercholesterolemia, unspecified, I10 - Essential (primary) hypertension, J41.0 - Simple chronic bronchitis, K76.0 - Fatty (change of) liver, not elsewhere classified, N28.1 - Cyst of kidney, acquired, Z00.00 - Encounter for general adult medical examination without abnormal findings TDaP Immunization 01/30/24 Z23 - Encounter for immunization Referrals Gastroenterology Referral K76.0 - Fatty (change of) liver, not elsewhere classified, Z12.11 - Encounter for screening for malignant neoplasm of colon Nephrology Referral N28.1 - Cyst of kidney, acquired Ophthalmology Referral H53.8 - Other visual disturbances Bariatric Surgery Referral E66.01 - Morbid (severe) obesity due to excess calories, Z68.42 - Body mass index [BMI] 45.0-49.9, adult Orthopedics Referral M25.562 - Pain in left knee Medications: Refilled amlodipine (Norvasc) 10 mg PO DAILY 90 tabs 1RF 90 days I10 - Essential (primary) hypertension docusate sodium (Colace) 200 mg (2 x 100 mg) PO BEDTIME 180 caps 2RF atorvastatin 40 mg PO BEDTIME 90 tabs 1RF 90 days E78.00 - Pure hypercho lesterolemia, unspecified hydrochlorothiazide 12.5 mg PO DAILY 90 tabs 1RF 90 days I10 - Essential (primary) hypertension loratadine 10 mg PO DAILY 90 tabs 0RF Discontinued melatonin Discontinued Reason: Patient Completed Course 3 mg PO BEDTIME 30 days PRN 30 caps 2RF sleep Patient Instructions: RTO in 6 months for routine f/u, sooner as needed. Health screenings for men ages 40 to 64 You should visit your health care provider regularly, even if you feel healthy. The purpose of these visits is to: Screen for medical issues Assess your risk for future medical problems Encourage a healthy lifestyle Update vaccinations and other preventive care services Help you get to know your provider in case of an illness Information Even if you feel fine, you should still see your provider for regular checkups. These visits can help you avoid problems in the future. For example, the only way to find out if you have high blood pressure is to have it checked regularly. High blood sugar and high cholesterol level also may not have any symptoms in the early stages. Simple blood tests can check for these conditions. There are specific times when you should see your provider or receive specific health screenings. The [place] Preventive Services Task Force publishes a list of recommended screenings. Below are screening guidelines for men ages 40 to 64. BLOOD PRESSURE SCREENING Have your blood pressure checked at least once every year. Watch for blood pressure screenings in your area. Ask your provider if you can stop in to have your blood pressure checked. Ask your provider if you need your blood pressure checked more often if: You have diabetes, heart disease, kidney problems, or are overweight or have certain other health conditions You have a first-degree relative with high blood pressure You are Black Your blood pressure top number is from 120 to 129 mm Hg, or the bottom number is from 70 to 79 mm Hg If the top number is 130 mm Hg or greater or the bottom number is 80 mm Hg or greater, this is considered stage 1 hypertension. Schedule an appointment with your provider to learn how you can lower your blood pressure. Effects of age on blood pressure CHOLESTEROL SCREENING Cholesterol screening should begin at age 35 for men with no known risk factors for coronary heart disease. Repeat cholesterol screening should take place: Every 5 years for men with normal cholesterol levels More often if changes occur in lifestyle (including weight gain and diet) More often if you have diabetes, heart disease, kidney problems, or certain other conditions COLORECTAL CANCER SCREENING If you are under age 45, talk to your provider about getting screened. You may need to be screened if you have a strong family history of colon cancer or polyps. Screening may also be considered if you have risk factors such as a history of inflammatory bowel disease or polyps. If you are age 45 to 75, you should be screened for colorectal cancer. There are several screening tests available: A stool-based fecal occult blood (gFOBT) or fecal immunochemical test (FIT) every year A stool sDNA test every 1 to 3 years Flexible sigmoidoscopy every 5 years or every 10 years with stool testing FIT done every year CT colonography (virtual colonoscopy) every 5 years Colonoscopy every 10 years You may need a colonoscopy more often if you have risk factors for colorectal cancer, such as: Ulcerative colitis A personal or family history of colorectal cancer A history of growths in your colon called adenomatous polyps DENTAL EXAM Go to the dentist once or twice every year for an exam and cleaning. Your dentist will evaluate if you have a need for more frequent visits. DIABETES SCREENING All adults who do not have risk factors for diabetes should be screened starting at age 35 and repeated every 3 years. If you have other risk factors for diabetes, such as a first degree relative with diabetes, overweight or obesity, high blood pressure, prediabetes, or a history of heart disease, you may be tested more often. If you are overweight and have other risk factors, such as high blood pressure and are planning to become , screening is recommended. EYE EXAM Have an eye exam every 2 to 4 years ages 40 to 54 and every 1 to 3 years ages 55 to 64. Your provider may recommend more frequent eye exams if you have vision problems or glaucoma risk. Have an eye exam that includes an examination of your retina (back of your eye) at least every year if you have diabetes. IMMUNIZATIONS Commonly needed vaccines include: Flu shot: get one every year COVID-19 vaccine: ask your provider what is best for you Tetanus-diphtheria and acellular pertussis (Tdap) vaccine: have as one of your tetanus-diphtheria vaccines if you did not receive it as an adolescent Tetanus-diphtheria: have a booster (or Tdap) every 10 years Varicella vaccine: receive 2 doses if you never had chickenpox or the varicella vaccine and were born in 1979 or after Hepatitis B vaccine: receive 2, 3, or 4 doses, depending on your exact circ umstances, if you did not receive these as a child or adolescent, until age 59 Shingles (herpes zoster) vaccine: at or after age 50 Ask your provider if you should receive other immunizations, especially if you have certain medical conditions, such as diabetes or are at increased risk for some diseases such as pneumonia. INFECTIOUS DISEASE SCREENING Screening for hepatitis C: all adults ages 18 to 79 should get a one-time test for hepatitis C. Screening for human immunodeficiency virus (HIV): all people ages 15 to 65 should get a one-time test for HIV. Depending on your lifestyle and medical history, you may need to be screened for infections such as syphilis, chlamydia, and other infections. LUNG CANCER SCREENING You should have an annual screening for lung cancer with low-dose computed tomography (LDCT) if: You are age 50 to 80 years AND You have a 20 pack-year smoking history AND You currently smoke or have quit within the past 15 years OSTEOPOROSIS SCREENING If you are age 50 to 64 and have risk factors for osteoporosis, you should discuss screening with your provider. Risk factors can include long-term steroid use, low body weight, smoking, heavy alcohol use, having a fracture after age 50, or a family history of hip fracture or osteoporosis. Osteoporosis PHYSICAL EXAM All adults should visit their provider from time to time, even if they are healthy. The purpose of these visits is to: Screen for diseases Assess risk of future medical problems Encourage a healthy lifestyle Update vaccinations and other preventive care services Maintain a relationship with a provider in case of an illness Your height, weight, and body mass index (BMI) should be checked at every exam. During your exam, your provider may ask you about: Depression and anxiety Diet and exercise Alcohol and tobacco use Safety, such as use of seat belts and smoke detectors Your medicines and risk for interactions PROSTATE CANCER SCREENING If you're 55 through 69 years old, before having the test, talk to your provider about the pros and cons of having a PSA test. Ask about: Whether screening decreases your chance of dying from prostate cancer. Whether there is any harm from prostate cancer screening, such as side effects from testing or overtreatment of cancer when discovered. Whether you have a higher risk of prostate cancer than others. If you are age 55 or younger, screening is not generally recommended. You should talk with your provider about if you have a higher risk for prostate cancer. Risk factors include: Having a family history of prostate cancer (especially a brother or father) Being If you choose to be tested, the PSA blood test is repeated over time (yearly or less often), though the best frequency is not known. Prostate examinations are no longer routinely done on men with no symptoms. Prostate cancer SKIN EXAM Your provider may check your skin for signs of skin cancer, especially if you're at high risk. People at high risk include those who have had skin cancer before, have close relatives with skin cancer, or have a weakened immune system. TESTICULAR EXAM The US Preventive Services Task Force (USPSTF) now recommends against performing testicular self-exams. Doing testicular self-exams has been shown to have little to no benefit. Coding Level of Care Code Est Pt Prev Care 40-64y(39600) Diagnoses Encounter for general adult medical examination without abnormal findings Z00.00 Primary hypertension I10 Hypertension type: primary hypertension Simple chronic bronchitis J41.0 COPD type: chronic bronchitis Chronic bronchitis type: simple High cholesterol E78.00 Gastroesophageal reflux disease without esophagitis K21.9 Esophagitis presence: without esophagitis Fatty liver K76.0 Bilateral renal cysts N28.1 Morbid obesity with BMI of 45.0-49.9, adult E66.01; Z68.42 Screen for colon cancer Z12.11 Blurred vision H53.8 Chronic pain of left knee M25.562; G89.29 Chronicity: chronic Prediabetes R73.03 Microalbuminuria R80.9 Additional Codes DENISHA-7 Assessment Billing - DENISHA-7 Assessment Tool: DENISHA-7 Assessment 96060 ([id number]) Vital Signs *Quality* - Advance Care Planning discussion: Exists, not on file ([id number]) Vital Signs *Quality* - Time spent: 1-15 minutes, not on file ([id number])
[2024-01-30 12:06] VITALS: BP 166/84; PULSE 85; O2SAT 95; BMI 35.3
== END 2024-01-30 13:15 | disposition home or self-care (01) ==
PROVIDERS: Visit Provider Nurse Practitioner Family
DX: Z23 Encounter for immunization (principal)
CPT/HCPCS: 1123F; 1124F; 90471; 90715; 99396

== ENCOUNTER 2024-01-30 12:53 | Outpatient (REF) | payer OTHER, SELFPAY ==
[2024-01-30 14:43] LABS: Estimated Average Glucose 131 mg/dL; Hemoglobin A1c % 6.2 % (<6.0)
[2024-01-30 16:22] LABS: Creatinine Urine 227.42 mg/dL; Microalbum/Creatinine Ratio Ur 80.9 ug/mg cr (<30)
[2024-01-30 16:27] LABS: Alanine Aminotransferase 27 U/L (0-40); Albumin Level 4.3 g/dL (3.5-5.0); Alkaline Phosphatase 77 U/L (39-117); Anion Gap 9 (12-20); Aspartate Amino Transferase 24 U/L (5-37); Bilirubin Total 0.3 mg/dL (0.0-1.0); Blood Urea Nitrogen 15 mg/dL (9-16); Calcium 9.7 mg/dL (8.4-10.2); Carbon Dioxide 29 mmol/L (22-29); Chloride 105 mmol/L (96-108); Estimated Glomerular Filt Rate > 60; Glucose Random 157 mg/dL (60-115); Potassium 3.8 mmol/L (3.3-5.1); Sodium 139 mmol/L (135-145); Total Protein 7.6 g/dL (6.5-8.0)
[2024-01-30 16:33] LABS: TSH reflex Free T4 3.15 uIU/mL (0.32-4.0)
[2024-01-31 08:53] LABS: LDL Cholesterol Direct 180 mg/dL (<100)
[2024-02-03 17:09] LABS: VITAMIN D (1,25 OH) D3 53 pg/mL; Vit D (1,25-Dihydroxy) Total 53 pg/mL (18-72); Vitamin D (1,25 OH) D2 <8 pg/mL
[2024-02-04 22:38] LABS: PSA, Ultra Sensitive 0.67 ng/mL
== END 2024-01-30 12:54 | disposition home or self-care (01) ==
LOC: HO.WFDLDS 12:53
PROVIDERS: Visit Provider Nurse Practitioner Family
DX: Z00.00 Encounter for general adult medical examination without abnormal findings (principal); Z12.5 Encounter for screening for malignant neoplasm of prostate; N28.1 Cyst of kidney, acquired; K76.0 Fatty (change of) liver, not elsewhere classified; I10 Essential (primary) hypertension; E78.00 Pure hypercholesterolemia, unspecified; J41.0 Simple chronic bronchitis
CPT/HCPCS: 36415; 80053; 82043; 82570; 82652; 83036; 83721; 84153; 84443

== ENCOUNTER 2024-02-04 12:58 | Outpatient (AMB) | payer OTHER, SELFPAY ==
[2024-02-04 13:08] VITALS: BP 114/86; PULSE 87; O2SAT 93; BMI 43.1
--- NOTE | 2024-02-04 13:08 | HO.NEPHOV ---
Vital Signs 02/04/24 13:08 Height 5 ft 6 in Weight 267 lb BMI 43.1 BP 114/86 Blood Pressure Location Lt brachial Position Sitting Pulse 87 Pulse Source Pulse Oximeter Pulse Oximetry (%) 93 Oxygen Delivery Method Room Air Intake Visit Reasons: Cyst of kidney/ Confirmed Pharmacy Technician Infusion Required: Yes Pharmacy Technician Infusion Name: sophia [id number] Accompanied by: Self / Same As Patient Allergies lisinopril Adverse Reaction (Verified 02/04/24 13:11) Cough HPI Comments Details: 53 yr old man with obesity referred for microalbuminuria and renal cyst Moved from [place] about 3 years ago and has gained 40 lbs since Does not exercise h/o Smoking from age 19 to 46 [facility] Medical History Breast mass, left Breast mass, right Cyst of right breast Chronic constipation Bilateral leg cramps Sore throat Rib fractures Tachycardia Impacted cerumen, left ear Low back strain Morbid obesity Pre-op evaluation Elevated blood pressure reading Infected tooth Normal physical exam Asthma, mild intermittent, poorly controlled Poor historian Asthma attacks lasting more than 24 hours Left upper quadrant abdominal pain Asthma Surgical History Umbilical hernia, incarcerated (12/12/23) Subareolar mass of left breast History of excision of mass (07/31/23) History of surgery on arm Hx of cholecystectomy Family History Other Substance abuse Social History Household Members: Family Housing: House 75 years or older and lives alone: No Alcohol intake: former Patient Tobacco Use Status: Former Tobacco user Quit Date: 2 years e-Cigarette/Vaping Use: Never Used Second Hand Smoke Exposure: No service: No Current occupational status: employed and unemployed Current occupation: works nights Current occupational exposures/hazards: No Gender identity: Male Cognitive needs: No Hearing needs: Yes Vision needs: Yes Physical Exam Vital Signs: Last Vital Signs Pulse 87 02/04/24 13:08 BP 114/86 02/04/24 13:08 Pulse Ox 93 02/04/24 13:08 Oxygen Delivery Method Room Air 02/04/24 13:08 BMI result Body Mass Index 43.1 Const General: comfortable Nutritional Appearance: well nourished Orientation/consciousness: patient oriented x3 HEENT Head: No normal to inspection Mouth: moist mucous membranes Neck Neck: Yes supple and Yes no JVD Resp Auscultation: clear to auscultation bilaterally, no rales and rub present Cardio Jugular venous distension: no JVD Palpation: no palpable S3 and no palpable S4 Heart sounds: no rubs GI Palpation (GI): Soft to palpation and nontender Percussion: No Fluid wave present General: Yes no CVA tenderness Back/Spine/Pelvis Back: no CVA tenderness Skin General skin exam: no rashes or lesions noted Neuro General: patient oriented x3 Extrem General: Yes no pedal edema and No clubbing Results Reviewed Nephrology Results: Sodium 139 mmol/L (135-145) 01/30/24 Potassium 3.8 mmol/L (3.3-5.1) 01/30/24 Chloride 105 mmol/L (96-108) 01/30/24 Carbon Dioxide 29 mmol/L (22-29) 01/30/24 BUN 15 mg/dL (9-16) 01/30/24 Creatinine 0.83 mg/dL (0.5-1.4) 01/30/24 Calcium 9.7 mg/dL (8.4-10.2) 01/30/24 Urine Creatinine 227.42 mg/dL 01/30/24 Assessment & Plan Assessment & Plan (1) Microalbuminuria: Comment: Most likely due to Obesity/HTN Code(s): R80.9 - Proteinuria, unspecified Category: Medical Plan: He needs weight loss After basic workup I will switch Norvasc to an KAYLYN inhibitor or ARB for renal protection. Maintain blood pressure less than 130/80. (2) Renal cyst: Code(s): N28.1 - Cyst of kidney, acquired Category: Medical Plan: CT scan done in 2022 revealed renal cyst. I will follow up with renal ultrasonogram. Obtain urine cytology as well Orders: Orders Creatinine Urine Today N05.9 - Unspecified nephritic syndrome with unspecified morphologic changes, R80.9 - Proteinuria, unspecified US renal BI Today R80.9 - Proteinuria, unspecified UA and rflx microscopic Today R80.9 - Proteinuria, unspecified Total Protein Urine Random Today R80.9 - Proteinuria, unspecified Urine Cytology Today R80.9 - Proteinuria, unspecified Coding Level of Care Code New Pt Level 4 (16899) Diagnoses Microalbuminuria R80.9 Renal cyst N28.1
== END 2024-02-04 13:25 | disposition home or self-care (01) ==
PROVIDERS: PCP Nurse Practitioner Family; Referring Provider Nurse Practitioner Family; Visit Provider Internal Medicine Hypertension Specialist
DX: R80.9 Proteinuria, unspecified (principal); N28.1 Cyst of kidney, acquired
CPT/HCPCS: 99204

== ENCOUNTER → 2024-02-04 12:58 | Outpatient (BNVA) | payer OTHER, SELFPAY | PROVIDERS: PCP Nurse Practitioner Family; Referring Provider Nurse Practitioner Family; Visit Provider Internal Medicine Hypertension Specialist | DX: N28.1 Cyst of kidney, acquired (principal); R80.9 Proteinuria, unspecified | CPT/HCPCS: 99202 ==

== ENCOUNTER 2024-02-04 13:34 | Outpatient (REF) | payer OTHER, SELFPAY ==
[2024-02-04 18:11] LABS: Appearance Urine Clear; Color Urine Yellow; Glucose Urine UA Negative (Negative); Leukocyte Esterase Urine Negative (Negative); Nitrite Urine Negative (Negative); PH 5.5 (5.0-9.0); Specific Gravity - Urine >= 1.030 (1.005-1.025); UMIC TRIGGER UA YES; Urine Blood Negative (Negative); Urine Ketones Negative (Negative); Urine Protein 30 (1+) mg/dL (Neg-Trace)
[2024-02-04 18:17] LABS: Bacteria Urine None Seen (None Seen); Hyaline Casts Urine 0-2 /LPF (0-2); RBC Urine 0-2 /HPF (0-2); WBC Urine 0-5 /HPF (0-5)
[2024-02-04 20:01] LABS: Creatinine Urine 244.77 mg/dL; Total Protein Urine Random 33 mg/dL (<12)
[2024-02-05 08:58] LABS: Urine Cytology See Pathology rpt
== END 2024-02-04 13:35 | disposition home or self-care (01) ==
LOC: HO.LAB 13:34
PROVIDERS: PCP Nurse Practitioner Family; Visit Provider Internal Medicine Hypertension Specialist
DX: R80.9 Proteinuria, unspecified (principal); N05.9 Unspecified nephritic syndrome with unspecified morphologic changes
CPT/HCPCS: 81001; 82570; 84156; 88112

== ENCOUNTER 2024-02-12 11:27 | Outpatient (REF) | payer OTHER, SELFPAY ==
--- NOTE | ~2024-02-12 | US_ITS ---
EXAMINATION: US RETROPERITONEAL LIMITED (RENAL ONLY) CLINICAL INFORMATION: Proteinuria, unspecified. COMPARISON: CT abdomen and pelvis 01/09/2023, 01/09/2023. TECHNIQUE: Real-time imaging of the kidneys. Limited visualization due to bowel gas. FINDINGS: RIGHT KIDNEY: 10.7 x 6.1 x 4.9 cm (SAG x AP x TRV). No hydronephrosis. No renal calculi. Renal cortical thickness is normal. Limited visualization. 4.3 cm upper pole cyst with benign features. There is no indication for additional imaging at this time. LEFT KIDNEY: 12.1 x 6.6 x 5.2 cm (SAG x AP x TRV). No hydronephrosis. No renal calculi. Renal cortical thickness is normal. Limited visualization. 4.8 x 4.4 x 4.5 cm midpole cyst is complex with multiple thin septations. Lower pole 2.0 x 1.3 x 1.4 cm cyst with benign features. There is no indication for follow-up imaging. US/US renal BI IMPRESSION: Left renal 4.8 cm mid pole cyst is complex with multiple septations, and possible thick septations. Dedicated CT scan employing renal mass protocol and intravenous contrast should be considered for further characterization.
== END 2024-02-12 11:28 | disposition home or self-care (01) ==
LOC: HO.US 11:27
PROVIDERS: PCP Nurse Practitioner Family; Visit Provider Internal Medicine Hypertension Specialist
DX: R80.9 Proteinuria, unspecified (principal)
CPT/HCPCS: 76775

== ENCOUNTER 2024-02-18 10:12 | Outpatient (REF) | payer OTHER, SELFPAY ==
--- NOTE | ~2024-02-18 | XR_ITS ---
EXAMINATION: XR KNEE, LEFT CLINICAL INFORMATION: Pain in the left knee COMPARISON: None available. TECHNIQUE: Four views of the left knee. FINDINGS: There are small marginal osteophytes about the lateral compartment without joint space narrowing indicative of mild osteoarthritis. The medial and patellofemoral compartments are unremarkable. No effusion. XR/XR knee LT 3V IMPRESSION: Mild osteoarthritis of the left knee.
== END 2024-02-18 10:13 | disposition home or self-care (01) ==
LOC: HO.HOSX 10:12
PROVIDERS: Visit Provider Orthopaedic Surgery
DX: M25.562 Pain in left knee (principal); G89.29 Other chronic pain
CPT/HCPCS: 73562; 99202

== ENCOUNTER 2024-02-18 11:32 | Outpatient (AMB) | payer OTHER, SELFPAY ==
[2024-02-18 12:28] VITALS: BMI 43.1
--- NOTE | 2024-02-18 12:28 | A.OFFVIS_ITS ---
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 The patient states that he injured his left knee approximately 15 years ago when he fell from a 2nd floor while changing a window. Most of the pain is along the medial aspect of his knee. He states that his left knee will give out several times per day. He has done physical therapy which aggravated his pain. He has failed the last 6 weeks of conservative treatment. He has tried Tylenol and ibuprofen which gave him minimal relief. 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 Allergies lisinopril Adverse Reaction (Verified 02/18/24 12:36) Cough Medication List - Last Reconciled 02/18/24 by Wil Luevano MD albuterol sulfate 1.25 mg (3 mL) inhalation Q4H 1 month albuterol sulfate 90 mcg/actuation (Ventolin HFA) 2 puffs inhalation Q4-6H PRN amlodipine (Norvasc) 10 mg PO DAILY 90 days atorvastatin 40 mg PO BEDTIME 90 days blood pressure kit-extra large As directed docusate sodium (Colace) 200 mg (2 x 100 mg) PO BEDTIME hydrochlorothiazide 12.5 mg PO DAILY 90 days loratadine 10 mg PO DAILY miscellaneous medical supply air purifier for personal use as directed; umeclidinium-vilanterol 62.5-25 mcg/actuation (Anoro Ellipta) 1 inh inhalation DAILY 30 days [facility] Medical History Breast mass, left Breast mass, right Cyst of right breast Chronic constipation Bilateral leg cramps Sore throat Rib fractures Tachycardia Impacted cerumen, left ear Low back strain Morbid obesity Pre-op evaluation Elevated blood pressure reading Infected tooth Normal physical exam Asthma, mild intermittent, poorly controlled Poor historian Asthma attacks lasting more than 24 hours Left upper quadrant abdominal pain Asthma Surgical History Umbilical hernia, incarcerated (12/12/23) Subareolar mass of left breast History of excision of mass (07/31/23) History of surgery on arm Hx of cholecystectomy Family History Other Substance abuse Social History Household Members: Family Housing: House 75 years or older and lives alone: No Alcohol intake: former Patient Tobacco Use Status: Former Tobacco user Quit Date: 2 years e-Cigarette/Vaping Use: Never Used Second Hand Smoke Exposure: No service: No Current occupational status: employed and unemployed Current occupation: works nights Current occupational exposures/hazards: No Gender identity: Male Cognitive needs: No Hearing needs: Yes Vision needs: Yes Physical Exam Vital Signs: BMI result Body Mass Index 43.1 Const Other: Well-nourished well-developed very friendly male awake alert and oriented x3 in no acute distress Extrem Other: Bilateral lower extremity examination shows good capillary refill, no skin lesions noted, normal sensation light touch Left knee examination shows a minimal effusion, mild crepitus with range of motion, tenderness along his medial joint line, positive Olena's test, no instability Results Reviewed Results Reviewed: Standing full weight-bearing x-rays of the patient's left knee show mild diffuse joint space narrowing, no acute bony abnormalities Assessment & Plan Assessment & Plan (1) Left knee pain: Comment: refer to ortho for eval and tx Code(s): M25.562 - Pain in left knee Category: Medical Qualifiers: Chronicity: chronic Qualified Code(s): M25.562 - Pain in left knee; G89.29 - Other chronic pain Plan Mr. Devaughn Parry presents with progressively worsening left knee pain and mechanical symptoms most likely due to a tear of his medial meniscus. Thus, I will send him for an MRI of his left knee for further evaluation. I will see him back once the MRI is completed to discuss the findings and treatment options. Feel free to call me at any time should questions regarding his orthopedic management arise. Thank you very much for asking me to see this very friendly gentleman. I spent 21 minutes in reviewing the patient's records and imaging studies, seeing the patient and documenting in the medical record. Orders: Orders XR knee LT 3V Today G89.29 - Other chronic pain, M25.562 - Pain in left knee MR knee LT wo con Today G89.29 - Other chronic pain, M25.562 - Pain in left knee Coding Level of Care Code New Pt Level 2 (46854) Diagnoses Chronic pain of left knee M25.562; G89.29 Chronicity: chronic
== END 2024-02-18 12:45 | disposition home or self-care (01) ==
PROVIDERS: PCP Nurse Practitioner Family; Visit Provider Orthopaedic Surgery
DX: M25.562 Pain in left knee (principal); G89.29 Other chronic pain
CPT/HCPCS: 99203

== ENCOUNTER → 2024-02-20 10:34 | Outpatient (BNVA) | payer OTHER, SELFPAY | PROVIDERS: PCP Nurse Practitioner Family; Visit Provider Physician Assistant Surgical ==

== ENCOUNTER 2024-02-20 11:02 | Emergency (ER) | payer OTHER, SELFPAY ==
--- NOTE | 2024-02-20 11:12 | ED_ITS ---
HPI - General Adult General Chief complaint: Recheck/Abnormal Lab/Rx Stated complaint: High BP Time Seen by Provider: 02/20/24 14:05 History of Present Illness HPI narrative: The patient is a 53-year-old male with a history of hypertension who had an appointment with the weight management clinic at the hospital here today. At the weight management clinic he was blood pressure was noted to be elevated. Out of concern about his elevated blood pressure who was referred to the emergency room. The patient says that he has not had any symptoms of concern today. He had presented himself to the weight management clinic for a regularly scheduled appointment today. He was not feeling unwell in any way. Specifically was not experiencing any chest pain or shortness of breath, diaphoresis or nausea. He only came to the emergency room because he was advised to do so by the weight management clinic. He says that he is better at taking his psychiatry medications then he is and taking his other medications. He says that he feels that when he takes his blood pressure medications his blood pressure remains elevated and so he does not feel they blood pressure medications are very useful. He says that he has had 2 heart attacks in the past. He says that he was told this after the fact that never sought care for any particular episode of what might have been a heart attack. He says this all occurred in [place]. Related Data Previous Rx's ?Medication ?Instructions ?Recorded blood pressure kit-extra large #1 ea 11/20/22 miscellaneous medical supply See Rx Instructions miscellaneous 11/20/22 .COMPLEX #1 ea umeclidinium 62.5 mcg-vilanterol 1 inh inhalation DAILY 30 days #1 02/27/23 25 mcg/actuation powdr for ea inhalation (Anoro Ellipta) amlodipine 10 mg tablet (Norvasc) 10 mg PO DAILY 90 days #90 tabs 01/30/24 atorvastatin 40 mg tablet 40 mg PO BEDTIME 90 days #90 tabs 01/30/24 docusate sodium 100 mg capsule 200 mg (2 x 100 mg) PO BEDTIME 01/30/24 (Colace) #180 caps hydrochlorothiazide 12.5 mg tablet 12.5 mg PO DAILY 90 days #90 tabs 01/30/24 loratadine 10 mg tablet 10 mg PO DAILY #90 tabs 01/30/24 albuterol sulfate 1.25 mg/3 mL 1.25 mg (3 mL) inhalation Q4H 1 02/05/24 solution for nebulization month #540 mL albuterol sulfate 90 mcg/actuation 2 puff inhalation Q4-6H PRN 02/05/24 aerosol inhaler (Ventolin HFA) shortness of breath or wheezing #8.5 grams Allergies Allergy/AdvReac Type Severity Reaction Status Date / Time lisinopril AdvReac Cough Verified 02/20/24 11:21 Review of Systems 2 Review of Systems: Yes all other systems are reviewed and are negative [facility] Past Medical History Medical History Breast mass, left Breast mass, right Cyst of right breast Chronic constipation Bilateral leg cramps Sore throat Rib fractures Tachycardia Impacted cerumen, left ear Low back strain Morbid obesity Pre-op evaluation Elevated blood pressure reading Infected tooth Normal physical exam Asthma, mild intermittent, poorly controlled Poor historian Asthma attacks lasting more than 24 hours Left upper quadrant abdominal pain Asthma Surgical History Umbilical hernia, incarcerated (12/12/23) Subareolar mass of left breast History of excision of mass (07/31/23) History of surgery on arm Hx of cholecystectomy Family History Family History Other Substance abuse Social History Social History Household Members: Family Housing: House Alcohol intake: former Patient Tobacco Use Status: Former Tobacco user Quit Date: 2 years e-Cigarette/Vaping Use: Never Used Second Hand Smoke Exposure: No Advance Directives: No service: No Current occupational status: employed and unemployed Current occupation: works nights Current occupational exposures/hazards: No Gender identity: Male Cognitive needs: No Hearing needs: Yes Vision needs: Yes Physical Exam ED Vital Signs: Vital Signs - 24 hr 02/20/24 11:14 Temperature 97.9 F Pulse Rate 82 Respiratory Rate 16 Blood Pressure 157/93 H Pulse Oximetry 93 Oxygen Delivery Method Room Air BMI result Body Mass Index 46.7 Const Other: The patient is awake, alert, pleasant, cooperative. He does not seem in any distress. HENMT Other: Face is symmetrical. Mucous membranes moist. Eyes Other: Pupils are round equal, conjunctivae are clear Neck Other: No JVD, moving his neck easily Resp Effort & Inspection: normal respiratory effort Auscultation: clear to auscultation bilaterally Cardio Rate: regular rate Rhythm: regular rhythm Heart sounds: S1 normal heart sound present and S2 normal heart sound present GI Other: Abdomen is soft and nontender Skin Other: Skin is dry and unremarkable Neuro Other: The patient is awake, alert, pleasant, cooperative. Speech is clear, face is symmetrical. Moves extremities normally. Gait is normal. He seems grossly neurologically intact. Extrem Other: No peripheral edema Course Course Course Narrative: RME performed by Esthela Obando PA-C. Patient is a 53 year old assigned male at presenting to the emergency department with HTN. Patient states he was at weight management when he was told he had an elevated blood pressure. Patient states that he has stopped taking his HTN medications because they make him sleepy. Patient states that he is having intermittent blurry vision. Detailed physical exam and review of systems are deferred to the process description writer. EKG, labs, and swabs ordered. Patient placed back in the waiting room pending room availability and results. Medical Decision Making Medical Decision Making MDM Narrative: Patient is a 53-year-old [place] Island[place]-speaking male who was interviewed with a [place] Islander site leasing agent who comes to the emergency room after being advised to do so from his weight management clinic appointment earlier today. Apparently his blood pressure was elevated at the weight management clinic. I do not know with the actual number was. On arrival here his blood pressure was 157/93 with a heart rate of 82. An EKG was done that was unremarkable. Labs has been ordered at triage. He has an unremarkable CBC and basic metabolic panel. He has no symptoms to suggest an acute coronary syndrome or any other complication of hypertension. I took his blood pressure at the bedside and it was 153/106. The patient looks entirely well. His heart rate is normal. By history he admits to being noncompliant with his antihypertensives. I explained to him that he really should take his antihypertensive medications and that he should follow up with his regular doctor in the next couple of weeks for a recheck. He agrees to do this. Lab Data 02/20/24 11:35 02/20/24 11:35 Labs: Lab Results 02/20/24 Range/Units 11:35 WBC 8.0 (4.8-10.8) X10*3/uL RBC 5.94 H (4.60-5.80) X10*6/uL Hgb 15.0 (14.0-18.0) g/dl Hct 45.7 (42.0-52.0) % MCV 76.9 L (80.0-98.0) fL MCH 25.3 L (27.0-33.0) pg MCHC 32.8 (31.0-36.0) g/dl RDW 16.1 H (11.0-16.0) % Plt Count 323 (160-400) X10*3/uL MPV 9.3 L (9.4-12.4) fL Immature Gran % (Auto) 0.7 H (0.0-0.4) % Neut % (Auto) 63.7 (45-73) % Lymph % (Auto) 24.2 (20-40) % Harper % (Auto) 6.6 (2-11) % Eos % (Auto) 3.9 (0-4) % Baso % (Auto) 0.9 (0-2) % Lymph # (Auto) 1.9 (1.2-4.9) X10*3/uL Harper # (Auto) 0.5 (0.1-1.2) X10*3/uL Eos # (Auto) 0.3 (0.0-0.4) X10*3/uL Baso # (Auto) 0.1 (0.0-0.2) X10*3/uL Abs Immat Gran (auto) 0.06 H (0.00-0.03) X10*3/uL Absolute Neuts (auto) 5.1 (2.0-8.3) x10*3/uL Absolute Nucleated RBC 0.000 (0.0-0.012) X10*3/uL Nucleated RBC % (auto) 0.0 (0.0-0.2) /100WBC Sodium 139 (135-145) mmol/L Potassium 4.4 (3.3-5.1) mmol/L Chloride 104 (96-108) mmol/L Carbon Dioxide 26 (22-29) mmol/L Anion Gap 13 (12-20) BUN 14 (9-16) mg/dL Creatinine 0.88 (0.5-1.4) mg/dL Estim Creat Clear Calc 113.8 Estimated GFR > 60 Random Glucose 118 H (60-115) mg/dL Calcium 9.3 (8.4-10.2) mg/dL Magnesium 1.7 (1.6-2.6) mg/dL Total Bilirubin 0.3 (0.0-1.0) mg/dL AST 22 (5-37) U/L ALT 22 (0-40) U/L Alkaline Phosphatase 76 (39-117) U/L Total Protein 7.8 (6.5-8.0) g/dL Albumin 4.3 (3.5-5.0) g/dL Discharge Plan Discharge Clinical Impression: Asymptomatic hypertension Patient Disposition: Home, Self-Care Additional Instructions: Your blood pressure is a little bit high today but it is not dangerously high. The most important thing for you to do is to resume your normal blood pressure medication and take it on a regular basis. This will reduce your risk of heart attack in the future. Also please contact your primary care doctor's office today for a follow up appointment in the next couple of weeks to recheck your blood pressure. Return to the emergency room if you feel significantly worse. Prescriptions: No Action Anoro Ellipta 62.5-25 mcg/actuation blister with device 1 inh inhalation DAILY 30 Days Qty: 1 6RF albuterol sulfate [Ventolin HFA] 90 mcg/actuation HFA aerosol inhaler 2 puff inhalation Q4-6H PRN (Reason: shortness of breath or wheezing) Qty: 8.5 1RF albuterol sulfate 1.25 mg/3 mL solution for nebulization 1.25 mg inhalation Q4H 30 Days Qty: 540 1RF amlodipine [Norvasc] 10 mg tablet 10 mg PO DAILY 90 Days Qty: 90 1RF atorvastatin 40 mg tablet 40 mg PO BEDTIME 90 Days Qty: 90 1RF docusate sodium [Colace] 100 mg capsule 200 mg PO BEDTIME Qty: 180 2RF hydrochlorothiazide 12.5 mg tablet 12.5 mg PO DAILY 90 Days Qty: 90 1RF loratadine 10 mg tablet 10 mg PO DAILY Qty: 90 0RF (DME) blood pressure kit-extra large Kit See Rx Instructions .Route Qty: 1 0RF Rx Instructions: As directed miscellaneous medical supply Misc See Rx Instructions miscellaneous .COMPLEX Qty: 1 0RF Rx Instructions: air purifier for personal use as directed; Referrals: Sravani Ledesma FNP-BC [Nurse Practitioner] - (Asymptomatic hypertension) Print Language: [place]
[2024-02-20 11:14] VITALS: BP 157/93; PULSE 82; RESP 16; TEMP 36.6; O2SAT 93; BMI 46.7
--- NOTE | 2024-02-20 11:22 | ECG_ITS ---
Test Reason : htn Blood Pressure : / mmHG Vent. Rate : 081 BPM Atrial Rate : 081 BPM P-R Int : 186 ms QRS Dur : 072 ms QT Int : 400 ms P-R-T Axes : 013 001 061 degrees QTc Int : 464 ms Normal sinus rhythm Normal ECG When compared with ECG of 27-FEB-2023 09:03, No significant change was found Referred By: Esthela Obando Electronically Signed By:PETERSON STEPHENS MD
[2024-02-20 11:38] LABS: MANUAL DIFF FLAG NO
[2024-02-20 11:40] LABS: Basophils Absolute Auto 0.1 X10*3/uL (0.0-0.2); Basophils Percent Auto 0.9 % (0-2); Eosinophils Absolute Auto 0.3 X10*3/uL (0.0-0.4); Eosinophils Percent Auto 3.9 % (0-4); Hematocrit 45.7 % (42.0-52.0); Imm Gran Abs Auto 0.06 X10*3/uL (0.00-0.03); Imm Gran Pct Auto 0.7 % (0.0-0.4); Lymphocytes Absolute Auto 1.9 X10*3/uL (1.2-4.9); Lymphocytes Percent Auto 24.2 % (20-40); Mean Corpuscular HGB Conc 32.8 g/dl (31.0-36.0); Mean Corpuscular Hemoglobin 25.3 pg (27.0-33.0); Mean Corpuscular Volume 76.9 fL (80.0-98.0); Mean Platelet Volume 9.3 fL (9.4-12.4); Monocytes Absolute Auto 0.5 X10*3/uL (0.1-1.2); Monocytes Percent Auto 6.6 % (2-11); Neutrophils Absolute Auto 5.1 x10*3/uL (2.0-8.3); Neutrophils Percent Auto 63.7 % (45-73); Platelet Count 323 X10*3/uL (160-400); Red Blood Count 5.94 X10*6/uL (4.60-5.80); Red Cell Distribution Width 16.1 % (11.0-16.0)
[2024-02-20 11:55] LABS: Alanine Aminotransferase 22 U/L (0-40); Albumin Level 4.3 g/dL (3.5-5.0); Alkaline Phosphatase 76 U/L (39-117); Anion Gap 13 (12-20); Aspartate Amino Transferase 22 U/L (5-37); Bilirubin Total 0.3 mg/dL (0.0-1.0); Blood Urea Nitrogen 14 mg/dL (9-16); Calcium 9.3 mg/dL (8.4-10.2); Carbon Dioxide 26 mmol/L (22-29); Chloride 104 mmol/L (96-108); Creatinine Clr Calc Pharmacy 113.8; Estimated Glomerular Filt Rate > 60; Glucose Random 118 mg/dL (60-115); Magnesium 1.7 mg/dL (1.6-2.6); Potassium 4.4 mmol/L (3.3-5.1); Sodium 139 mmol/L (135-145); Total Protein 7.8 g/dL (6.5-8.0)
[2024-02-20 14:33] VITALS: BP 153/106; PULSE 80; RESP 18; TEMP -17.7; TEMP 0
== END 2024-02-20 14:34 | disposition home or self-care (01) ==
PROVIDERS: Physician Assistant Medical; Emergency Provider Emergency Medicine
DX: I10 Essential (primary) hypertension (principal); J45.20 Mild intermittent asthma, uncomplicated; Z91.148 Patient's other noncompliance with medication regimen for other reason
CPT/HCPCS: 36415; 80053; 83735; 85025; 93005; 99283

== ENCOUNTER → 2024-02-20 11:22 | Outpatient (BNV) | payer OTHER, SELFPAY | PROVIDERS: Visit Provider Internal Medicine Cardiovascular Disease | DX: I10 Essential (primary) hypertension (principal) | CPT/HCPCS: 93010 ==

== ENCOUNTER 2024-03-05 11:53 | Outpatient (AMB) | payer OTHER, SELFPAY ==
--- NOTE | 2024-03-05 11:57 | HO.NEPHOV ---
Vital Signs 03/05/24 12:06 Height 5 ft 3 in Weight 266 lb BMI 47.1 Pulse 76 Pulse Source Pulse Oximeter Pulse Oximetry (%) 95 Oxygen Delivery Method Room Air Intake Visit Reasons: Microalbuminuria/ 1 MO FU Watch Guard Gate Required: Yes Watch Guard Gate Name: Claudine [id number] Allergies lisinopril Adverse Reaction (Verified 03/05/24 12:08) Cough HPI Comments Details: 53 yr old man with obesity referred for microalbuminuria and renal cyst Moved from [place] about 3 years ago and has gained 40 lbs since Does not exercise h/o Smoking from age 19 to 46 [facility] Medical History Breast mass, left Breast mass, right Cyst of right breast Chronic constipation Bilateral leg cramps Sore throat Rib fractures Tachycardia Impacted cerumen, left ear Low back strain Morbid obesity Pre-op evaluation Elevated blood pressure reading Infected tooth Normal physical exam Asthma, mild intermittent, poorly controlled Poor historian Asthma attacks lasting more than 24 hours Left upper quadrant abdominal pain Asthma Surgical History Umbilical hernia, incarcerated (12/12/23) Subareolar mass of left breast History of excision of mass (07/31/23) History of surgery on arm Hx of cholecystectomy Family History Other Substance abuse Social History Household Members: Family Housing: House 75 years or older and lives alone: No Alcohol intake: former Patient Tobacco Use Status: Former Tobacco user e-Cigarette/Vaping Use: Never Used Second Hand Smoke Exposure: No service: No Current occupational status: employed and unemployed Current occupation: works nights Current occupational exposures/hazards: No Gender identity: Male Cognitive needs: No Hearing needs: Yes Vision needs: Yes Physical Exam Vital Signs: Last Vital Signs Pulse 76 03/05/24 12:06 Pulse Ox 95 03/05/24 12:06 Oxygen Delivery Method Room Air 03/05/24 12:06 BMI result Body Mass Index 47.1 Const General: comfortable Nutritional Appearance: well nourished Orientation/consciousness: patient oriented x3 HEENT Head: No normal to inspection Mouth: moist mucous membranes Neck Neck: Yes supple and Yes no JVD Resp Auscultation: clear to auscultation bilaterally, no rales and rub present Cardio Jugular venous distension: no JVD Palpation: no palpable S3 and no palpable S4 Heart sounds: no rubs GI Palpation (GI): Soft to palpation and nontender Percussion: No Fluid wave present General: Yes no CVA tenderness Back/Spine/Pelvis Back: no CVA tenderness Skin General skin exam: no rashes or lesions noted Neuro General: patient oriented x3 Extrem General: Yes no pedal edema and No clubbing Results Reviewed Results Reviewed: USG Left renal 4.8 cm mid pole cyst is complex with multiple septations, and possible thick septations. Nephrology Results: Hgb 15.0 g/dl (14.0-18.0) 02/20/24 WBC 8.0 X10*3/uL (4.8-10.8) 02/20/24 Plt Count 323 X10*3/uL (160-400) 02/20/24 Sodium 139 mmol/L (135-145) 02/20/24 Potassium 4.4 mmol/L (3.3-5.1) 02/20/24 Chloride 104 mmol/L (96-108) 02/20/24 Carbon Dioxide 26 mmol/L (22-29) 02/20/24 BUN 14 mg/dL (9-16) 02/20/24 Creatinine 0.88 mg/dL (0.5-1.4) 02/20/24 Calcium 9.3 mg/dL (8.4-10.2) 02/20/24 Urine Protein 30 (1+) mg/dL (Neg-Trace) H 02/04/24 Urine Creatinine 244.77 mg/dL 02/04/24 Renal US 02/12/24 Assessment & Plan Assessment & Plan (1) Microalbuminuria: Comment: Most likely due to Obesity/HTN Code(s): R80.9 - Proteinuria, unspecified Category: Medical Plan: He needs weight loss He will benefit from KAYLYN inhibitor or ARB for renal protection. Maintain blood pressure less than 130/80. (2) Renal cyst: Code(s): N28.1 - Cyst of kidney, acquired Category: Medical Plan: CT scan done in 2022 revealed renal cyst. Follow renal ultrasonogram shows septic cyst on both kidneys and a repeat CT scan has been recommended. I will follow up with a repeat CT scan. Orders: Orders CT abdomen w IV con Today N28.1 - Cyst of kidney, acquired Coding Level of Care Code Est Pt Level 4 (28724) Diagnoses Microalbuminuria R80.9 Renal cyst N28.1
[2024-03-05 12:06] VITALS: PULSE 76; O2SAT 95; BMI 47.1
== END 2024-03-05 12:22 | disposition home or self-care (01) ==
PROVIDERS: PCP Nurse Practitioner Family; Visit Provider Internal Medicine Hypertension Specialist
DX: R80.9 Proteinuria, unspecified (principal); N28.1 Cyst of kidney, acquired
CPT/HCPCS: 99214

== ENCOUNTER → 2024-03-05 11:53 | Outpatient (BNVA) | payer OTHER, SELFPAY | PROVIDERS: PCP Nurse Practitioner Family; Visit Provider Internal Medicine Hypertension Specialist | DX: R80.9 Proteinuria, unspecified (principal); N28.1 Cyst of kidney, acquired | CPT/HCPCS: 99212 ==

== ENCOUNTER 2024-03-18 08:59 | Outpatient (REF) | payer OTHER, SELFPAY ==
[2024-03-18 09:54] LABS: Blood Urea Nitrogen 13 mg/dL (9-16); Estimated Glomerular Filt Rate > 60
== END 2024-03-18 09:00 | disposition home or self-care (01) ==
LOC: HO.LAB 08:59
PROVIDERS: PCP Nurse Practitioner Family; Visit Provider Internal Medicine Hypertension Specialist
DX: N28.1 Cyst of kidney, acquired (principal)
CPT/HCPCS: 36415; 82565; 84520

== ENCOUNTER 2024-03-24 11:58 | Outpatient (REF) | payer OTHER, SELFPAY ==
--- NOTE | ~2024-03-24 | MR_ITS ---
EXAMINATION: MR KNEE WITHOUT CONTRAST, LEFT CLINICAL INFORMATION: Pain in the left knee COMPARISON: X-ray the left knee February 2024 TECHNIQUE: MRI of the knee without contrast was performed using routine sequences on a high-field scanner. FINDINGS: Exam is slightly limited by image degrading motion artifact MENISCI: Medial Meniscus: Grade 2 signal within the intrasubstance portion of the meniscus without clinical significance . . Lateral Meniscus: There is irregular abnormal signal throughout the inner and middle one third portion of the posterior horn extending to the femoral and tibial articular surfaces indicative of a complex meniscal tear LIGAMENTS: Cruciate: Intact Collateral: Intact EXTENSOR MECHANISM: Intact ARTICULAR CARTILAGE/BONE: Patellofemoral Compartment: Normal Medial Compartment: Normal Lateral Compartment: There is cartilage. Thinning and heterogeneity along the posterior weightbearing tibial articular surface and minimal surface regularity the posterior weightbearing femoral articular surface. Overall mild arthrosis JOINT FLUID AND BURSAE: Trace Sanchez's cyst. MR/MR knee LT wo con IMPRESSION: 1. Complex tear of the posterior horn of the lateral meniscus. 2. Mild arthrosis of the lateral compartment.
--- NOTE | ~2024-03-24 | XR_ITS ---
EXAMINATION: XR pre mri screening CLINICAL INFORMATION: PRE-MRI ORBITS and RIGHT HAND COMPARISON: None. TECHNIQUE: Water-soluble juan, with scan down and lateral views of the orbits, 3 images. PA, lateral oblique views of the right hand, 3 images. FINDINGS: Orbits: No radiopaque foreign body overlying the orbits. Dental amalgam noted. No acute fracture. Right hand: Intact plate and screw fixation to the palmar/lateral aspect of the distal radial metaphysis. No acute fracture. There are small densities overlying the soft tissues of the dorsal/ulnar aspect of the second digit proximal phalanx and radial aspect of the third digit middle phalanx. These densities could represent a well-corticated osseous fragment versus foreign bodies. No acute fracture. The carpal rows are appropriately aligned. Joint spaces are maintained. Alignment is anatomic. XR/XR pre mri screening IMPRESSION: Orbits: No radiopaque foreign body. Right hand: Small densities overlying the soft tissues of the second and third digit.
== END 2024-03-24 11:59 | disposition home or self-care (01) ==
LOC: HO.MRI 11:58
PROVIDERS: Visit Provider Orthopaedic Surgery
DX: M25.562 Pain in left knee (principal); G89.29 Other chronic pain
CPT/HCPCS: 73721

== ENCOUNTER 2024-03-26 20:58 | Emergency (ER) | payer OTHER, SELFPAY ==
--- NOTE | ~2024-03-26 | XR_ITS ---
EXAMINATION: XR CHEST CLINICAL INFORMATION: Cough and SOB. COMPARISON: Chest x-ray 08/13/2023 TECHNIQUE: 2 views of the chest were obtained. FINDINGS: No significant abnormality is noted involving the heart, lungs, mediastinum, bony thorax or soft tissues. XR/XR chest 2V IMPRESSION: Unremarkable chest examination.
[2024-03-26 21:01] VITALS: BP 146/96; PULSE 99; RESP 20; TEMP 37.2; O2SAT 95; BMI 47.8
[2024-03-26 21:40] LABS: IDNOW Serial# 58CA691E; Strep A Nucleic Acid Negative (Negative)
[2024-03-26 22:07] LABS: Influenza A PCR NEGATIVE (Negative); Influenza B PCR NEGATIVE (Negative); Resp Syncy Virus RNA Qual PCR NEGATIVE (Negative); SARS COV2 PCR INHOUSE NEGATIVE (Negative)
--- NOTE | 2024-03-26 23:57 | ED_ITS ---
HPI - General Adult General Chief complaint: Upper Respiratory Symptoms Stated complaint: headache, body aches, feels hot Time Seen by Provider: 03/26/24 23:52 Source: patient Mode of arrival: ambulatory Limitations: no limitations History of Present Illness ED Provider: obdulia ANN narrative: Patient's history of asthma been sick for last 3 days other family member also sick with cough body aches chills cough is mostly dry also complaining of increased shortness of breath saturating 95% at room air Related Data Home Medications ?Medication ?Instructions ?Recorded ?Confirmed fluoxetine 20 mg capsule 20 mg PO DAILY 03/05/24 lorazepam 0.5 mg tablet mg PO PRN 03/05/24 Previous Rx's ?Medication ?Instructions ?Recorded blood pressure kit-extra large #1 ea 11/20/22 miscellaneous medical supply See Rx Instructions miscellaneous 11/20/22 .COMPLEX #1 ea umeclidinium 62.5 mcg-vilanterol 1 inh inhalation DAILY 30 days #1 02/27/23 25 mcg/actuation powdr for ea inhalation (Anoro Ellipta) amlodipine 10 mg tablet (Norvasc) 10 mg PO DAILY 90 days #90 tabs 01/30/24 atorvastatin 40 mg tablet 40 mg PO BEDTIME 90 days #90 tabs 01/30/24 docusate sodium 100 mg capsule 200 mg (2 x 100 mg) PO BEDTIME 01/30/24 (Colace) #180 caps hydrochlorothiazide 12.5 mg tablet 12.5 mg PO DAILY 90 days #90 tabs 01/30/24 loratadine 10 mg tablet 10 mg PO DAILY #90 tabs 01/30/24 albuterol sulfate 1.25 mg/3 mL 1.25 mg (3 mL) inhalation Q4H 1 02/05/24 solution for nebulization month #540 mL albuterol sulfate 90 mcg/actuation 2 puff inhalation Q4-6H PRN 02/05/24 aerosol inhaler (Ventolin HFA) shortness of breath or wheezing #8.5 grams benzonatate 200 mg capsule 200 mg PO TID PRN cough #30 caps 03/27/24 cefuroxime axetil 500 mg tablet 500 mg PO BID 7 days #14 tabs 03/27/24 ibuprofen 600 mg tablet 600 mg PO Q6H PRN fever or pain 03/27/24 #30 tabs Allergies Allergy/AdvReac Type Severity Reaction Status Date / Time lisinopril AdvReac Cough Verified 03/26/24 21:02 Review of Systems Review of Systems: Yes all other systems are reviewed and are negative [facility] Past Medical History Medical History Breast mass, left Breast mass, right Cyst of right breast Chronic constipation Bilateral leg cramps Sore throat Rib fractures Tachycardia Impacted cerumen, left ear Low back strain Morbid obesity Pre-op evaluation Elevated blood pressure reading Infected tooth Normal physical exam Asthma, mild intermittent, poorly controlled Poor historian Asthma attacks lasting more than 24 hours Left upper quadrant abdominal pain Asthma Surgical History Umbilical hernia, incarcerated (12/12/23) Subareolar mass of left breast History of excision of mass (07/31/23) History of surgery on arm Hx of cholecystectomy Family History Family History Other Substance abuse Social History Social History Household Members: Family Housing: House Alcohol intake: former Patient Tobacco Use Status: Former Tobacco user e-Cigarette/Vaping Use: Never Used Second Hand Smoke Exposure: No Advance Directives: No Advance Directives Information Provided: No Do you have a plan to hurt others: No Plan service: No Current occupational status: employed and unemployed Current occupation: works nights Current occupational exposures/hazards: No Gender identity: Male Cognitive needs: No Hearing needs: Yes Vision needs: Yes Physical Exam ED Vital Signs: Vital Signs - 24 hr 03/26/24 21:01 03/27/24 00:00 Temperature 99.0 F 99.4 F Pulse Rate 99 89 Respiratory Rate 20 16 Blood Pressure 146/96 H 149/88 H Pulse Oximetry 95 95 Oxygen Delivery Method Room Air Room Air BMI result Body Mass Index 47.8 Appearance: Alert. Oriented X3. No acute distress. Eyes: No pallor or icterus ENT: Pharynx normal. Oral Mucosa moist Neck: Normal inspection. Neck supple. CVS: Normal heart rate and rhythm. Pulses normal. Respiratory: No respiratory distress. Equal air entry bilateral, bilateral prolonged expiration with frequent cough Abdomen: Soft and nontender. Bowel sounds are present, no mass palpable, no CVA tenderness Skin: Skin warm and dry. Normal skin color. Normal skin turgor. Extremities: No lower extremity edema. No calf tenderness Neuro: Oriented X 3. Medical Decision Making Medical Decision Making [facility] Narrative: Patient's asthma with cough with bronchitis COVID flu RSV negative strep is negative will discharge patient home on Ceftin cough drops for bronchitis advised to continue albuterol inhaler Differential Diagnosis Differential Diagnoses: The differential diagnosis associated with the presentation includes Pneumonia/bronchitis Lab Data [facility] Lab Attestation statement: I reviewed the patient's lab results. Labs: Lab Results 03/26/24 Range/Units 21:25 Influenza Type A (PCR) NEGATIVE (Negative) Influenza Type B (PCR) NEGATIVE (Negative) RSV RNA Qual (PCR) NEGATIVE (Negative) SARS-CoV-2 RNA (RT-PCR) NEGATIVE (Negative) S. pyogenes GrpA HAN Negative (Negative) Independent Interpretation I performed an independent interpretation of an: Plain X-Ray Radiology Impression Discussion of test interpretation with radiology: I have reviewed the radiologist's reading. Discharge Plan Discharge Clinical Impression: Bronchitis Patient Disposition: Home, Self-Care Instructions: Acute Bronchitis (ED) Additional Instructions: Take antibiotic as prescribed Cough drops as prescribed Drink plenty of fluids Tylenol/Motrin for body aches Follow with PCP if not better Prescriptions: New benzonatate 200 mg capsule 200 mg PO TID PRN (Reason: cough) Qty: 30 0RF cefuroxime axetil 500 mg tablet 500 mg PO BID 7 Days Qty: 14 0RF ibuprofen 600 mg tablet 600 mg PO Q6H PRN (Reason: fever or pain) Qty: 30 0RF No Action Anoro Ellipta 62.5-25 mcg/actuation blister with device 1 inh inhalation DAILY 30 Days Qty: 1 6RF albuterol sulfate [Ventolin HFA] 90 mcg/actuation HFA aerosol inhaler 2 puff inhalation Q4-6H PRN (Reason: shortness of breath or wheezing) Qty: 8.5 1RF albuterol sulfate 1.25 mg/3 mL solution for nebulization 1.25 mg inhalation Q4H 30 Days Qty: 540 1RF amlodipine [Norvasc] 10 mg tablet 10 mg PO DAILY 90 Days Qty: 90 1RF atorvastatin 40 mg tablet 40 mg PO BEDTIME 90 Days Qty: 90 1RF docusate sodium [Colace] 100 mg capsule 200 mg PO BEDTIME Qty: 180 2RF hydrochlorothiazide 12.5 mg tablet 12.5 mg PO DAILY 90 Days Qty: 90 1RF loratadine 10 mg tablet 10 mg PO DAILY Qty: 90 0RF (DME) blood pressure kit-extra large Kit See Rx Instructions .Route Qty: 1 0RF Rx Instructions: As directed miscellaneous medical supply Misc See Rx Instructions miscellaneous .COMPLEX Qty: 1 0RF Rx Instructions: air purifier for personal use as directed; lorazepam 0.5 mg tablet PO PRN fluoxetine 20 mg capsule 20 mg PO DAILY Print Language: American
[2024-03-27] VITALS: BP 149/88; PULSE 89; RESP 16; TEMP 37.4; O2SAT 95
[2024-03-27] MEDS: cefuroxime axetiL 500 MG TABLET PO (01:13)
[2024-03-27] MEDS: Benzonatate 100 MG CAPSULE 200 MG PO (01:13)
[2024-03-27] MEDS: dexAMETHasone 2 MG TABLET 10 MG PO (01:14)
[2024-03-27] MEDS: Ibuprofen 600 MG TABLET PO (01:14)
[2024-03-27 01:15] VITALS: O2SAT 94
[2024-03-27 01:16] VITALS: PULSE 87
[2024-03-27 01:24] VITALS: BP 131/76; PULSE 89; RESP 16; TEMP 36.8; O2SAT 94
== END 2024-03-27 01:25 | disposition home or self-care (01) ==
PROVIDERS: Emergency Provider Internal Medicine
DX: J40 Bronchitis, not specified as acute or chronic (principal); R06.02 Shortness of breath; R05.9 Cough, unspecified; Z03.818 Encounter for observation for suspected exposure to other biological agents ruled out
CPT/HCPCS: 0241U; 71046; 87651; 99283; 99285; J8540

== ENCOUNTER 2024-04-02 10:19 | Outpatient (AMB) | payer OTHER, SELFPAY ==
--- NOTE | 2024-04-02 10:21 | HO.NEPHOV ---
Vital Signs 04/02/24 10:24 Height 5 ft 3 in Weight 263 lb BMI 46.6 BP 128/100 H Blood Pressure Location Rt brachial Position Sitting Pulse 76 Pulse Source Pulse Oximeter Pulse Oximetry (%) 94 Oxygen Delivery Method Room Air Intake Visit Reasons: 1 mon follow up/ Conf Eye Surgeon Required: Yes Eye Surgeon Name: Matthew [id number] Accompanied by: Self / Same As Patient Allergies lisinopril Adverse Reaction (Verified 04/02/24 10:26) Cough Medication List - Last Reconciled 04/02/24 by Jorge Luis Acosta MD albuterol sulfate 1.25 mg (3 mL) inhalation Q4H 1 month albuterol sulfate 90 mcg/actuation (Ventolin HFA) 2 puffs inhalation Q4-6H PRN amlodipine (Norvasc) 10 mg PO DAILY 90 days atorvastatin 40 mg PO BEDTIME 90 days benzonatate 200 mg PO TID PRN blood pressure kit-extra large As directed buspirone 10 mg PO BID cefuroxime axetil 500 mg PO BID 7 days docusate sodium (Colace) 200 mg (2 x 100 mg) PO BEDTIME fluoxetine 20 mg PO DAILY hydrochlorothiazide 12.5 mg PO DAILY 90 days ibuprofen 600 mg PO Q6H PRN loratadine 10 mg PO DAILY lorazepam mg PO PRN melatonin 3 mg PO BEDTIME miscellaneous medical supply air purifier for personal use as directed; pantoprazole 20 mg PO BID trazodone 50 mg PO BEDTIME umeclidinium-vilanterol 62.5-25 mcg/actuation (Anoro Ellipta) 1 inh inhalation DAILY 30 days ziprasidone HCl 20 mg PO BID HPI Comments Details: 53 yr old man with obesity referred for microalbuminuria and renal cyst Moved from [place] about 3 years ago and has gained 40 lbs since Does not exercise h/o Smoking from age 19 to 46 04/02/24 He stopped taking Amlodipine due to headache Eye Surgeon Service was used [facility] Medical History Breast mass, left Breast mass, right Cyst of right breast Chronic constipation Bilateral leg cramps Sore throat Rib fractures Tachycardia Impacted cerumen, left ear Low back strain Morbid obesity Pre-op evaluation Elevated blood pressure reading Infected tooth Normal physical exam Asthma, mild intermittent, poorly controlled Poor historian Asthma attacks lasting more than 24 hours Left upper quadrant abdominal pain Asthma Surgical History Umbilical hernia, incarcerated (12/12/23) Subareolar mass of left breast History of excision of mass (07/31/23) History of surgery on arm Hx of cholecystectomy Family History Other Substance abuse Social History Household Members: Family Housing: House 75 years or older and lives alone: No Alcohol intake: never Patient Tobacco Use Status: Former Tobacco user e-Cigarette/Vaping Use: Never Used Second Hand Smoke Exposure: No service: No Current occupational status: employed and unemployed Current occupation: works nights Current occupational exposures/hazards: No Gender identity: Male Cognitive needs: No Hearing needs: Yes Vision needs: Yes Physical Exam Vital Signs: Last Vital Signs Pulse 76 04/02/24 10:24 BP 128/100 H 04/02/24 10:24 Pulse Ox 94 04/02/24 10:24 Oxygen Delivery Method Room Air 04/02/24 10:24 BMI result Body Mass Index 46.6 Const General: comfortable; No acute distress Orientation/consciousness: patient oriented x3 Eyes General: appearance normal, both eyes and all related structures Visual Escobar: normal visual escobar by confrontation Neck Neck: Yes supple and Yes no JVD Resp Effort & Inspection: normal respiratory effort and respiratory effort not decreased Auscultation: rhonchi Cardio Palpation: no palpable S3 and no palpable S4 Heart sounds: no rubs GI Inspection: Yes normal to inspection Palpation (GI): Soft to palpation Percussion: Yes normal to percussion Auscultation: normal bowel sounds General: Yes no CVA tenderness Back/Spine/Pelvis Back: no CVA tenderness Skin General skin exam: no petechiae and no purpura Neuro General: patient oriented x3 and no focal motor deficits Extrem General: No clubbing and No edema Results Reviewed Nephrology Results: Hgb 15.0 g/dl (14.0-18.0) 02/20/24 WBC 8.0 X10*3/uL (4.8-10.8) 02/20/24 Plt Count 323 X10*3/uL (160-400) 02/20/24 Sodium 139 mmol/L (135-145) 02/20/24 Potassium 4.4 mmol/L (3.3-5.1) 02/20/24 Chloride 104 mmol/L (96-108) 02/20/24 Carbon Dioxide 26 mmol/L (22-29) 02/20/24 BUN 13 mg/dL (9-16) 03/18/24 Creatinine 0.81 mg/dL (0.5-1.4) 03/18/24 Calcium 9.3 mg/dL (8.4-10.2) 02/20/24 Urine Protein 30 (1+) mg/dL (Neg-Trace) H 02/04/24 Urine Creatinine 244.77 mg/dL 02/04/24 Renal US 02/12/24 Assessment & Plan Assessment & Plan (1) Microalbuminuria: Comment: Most likely due to Obesity/HTN Code(s): R80.9 - Proteinuria, unspecified Category: Medical Plan: He needs weight loss He will benefit from KAYLYN inhibitor or ARB for renal protection. Maintain blood pressure less than 130/80. Changed AMlodipine to Nifedipine XL 30 mg daily (2) Renal cyst: Code(s): N28.1 - Cyst of kidney, acquired Category: Medical Plan: CT scan done in 2022 revealed renal cyst. Follow renal ultrasonogram shows septic cyst on both kidneys and a repeat CT scan has been recommended. I will follow up with a repeat CT scan. - scheduled of 03/18/24 Medications: New nifedipine ER 30 mg PO DAILY 90 tabs 0RF Discontinued amlodipine (Norvasc) Discontinued Reason: Doctor's Order 10 mg PO DAILY 90 days 90 tabs 1RF I10 - Essential (primary) hypertension Coding Level of Care Code Est Pt Level 4 (35486) Diagnoses Microalbuminuria R80.9 Renal cyst N28.1
[2024-04-02 10:24] VITALS: BP 128/100; PULSE 76; O2SAT 94; BMI 46.6
== END 2024-04-02 10:44 | disposition home or self-care (01) ==
LOC: HO.HKA 10:19
PROVIDERS: Visit Provider Internal Medicine Hypertension Specialist
DX: R80.9 Proteinuria, unspecified (principal); N28.1 Cyst of kidney, acquired
CPT/HCPCS: 99214

== ENCOUNTER → 2024-04-02 10:19 | Outpatient (BNVA) | payer OTHER, SELFPAY | PROVIDERS: Visit Provider Internal Medicine Hypertension Specialist | DX: R80.9 Proteinuria, unspecified (principal); N28.1 Cyst of kidney, acquired | CPT/HCPCS: 99212 ==

== ENCOUNTER 2024-04-08 09:26 | Outpatient (AMB) | payer OTHER, SELFPAY ==
--- NOTE | 2024-04-08 09:30 | MHC.OFFVIS ---
Intake Visit Reasons: OV - MRI review of left knee Intake Note: Socrates is a 53 year old male who presents as a new patient with progressively worsening left knee pain and giving way. The patient states that he injured his left knee approximately 15 years ago when he fell from a 2nd floor while changing a window. Most of the pain is along the medial aspect of his knee. He states that his left knee will give out several times per day. He has done physical therapy which aggravated his pain. He has failed the last 6 weeks of conservative treatment. He has tried Tylenol and ibuprofen which gave him minimal relief. Stacker Straightener Required: Yes Stacker Straightener Language: Printer Repair Technician Name: Eulogio Solorio ([id number]) Allergies lisinopril Adverse Reaction (Verified 04/08/24 09:31) Cough Medication List - Last Reconciled 04/08/24 by Wil Luevano MD albuterol sulfate 1.25 mg (3 mL) inhalation Q4H 1 month albuterol sulfate 90 mcg/actuation (Ventolin HFA) 2 puffs inhalation Q4-6H PRN atorvastatin 40 mg PO BEDTIME 90 days blood pressure kit-extra large As directed buspirone 10 mg PO BID docusate sodium (Colace) 200 mg (2 x 100 mg) PO BEDTIME fluoxetine 20 mg PO DAILY hydrochlorothiazide 12.5 mg PO DAILY 90 days ibuprofen 600 mg PO Q6H PRN loratadine 10 mg PO DAILY lorazepam mg PO PRN melatonin 3 mg PO BEDTIME miscellaneous medical supply air purifier for personal use as directed; nifedipine ER 30 mg PO DAILY pantoprazole 20 mg PO BID trazodone 50 mg PO BEDTIME umeclidinium-vilanterol 62.5-25 mcg/actuation (Anoro Ellipta) 1 inh inhalation DAILY 30 days ziprasidone HCl 20 mg PO BID PFSH Medical History Breast mass, left Breast mass, right Cyst of right breast Chronic constipation Bilateral leg cramps Sore throat Rib fractures Tachycardia Impacted cerumen, left ear Low back strain Morbid obesity Pre-op evaluation Elevated blood pressure reading Infected tooth Normal physical exam Asthma, mild intermittent, poorly controlled Poor historian Asthma attacks lasting more than 24 hours Left upper quadrant abdominal pain Asthma Surgical History Umbilical hernia, incarcerated (12/12/23) Subareolar mass of left breast History of excision of mass (07/31/23) History of surgery on arm Hx of cholecystectomy Family History Other Substance abuse Social History Household Members: Family Housing: House Alcohol intake: never Patient Tobacco Use Status: Former Tobacco user e-Cigarette/Vaping Use: Never Used Second Hand Smoke Exposure: No service: No Current occupational status: employed and unemployed Current occupation: works nights Current occupational exposures/hazards: No Gender identity: Male Cognitive needs: No Hearing needs: Yes Vision needs: Yes Physical Exam Const Other: Well-nourished well-developed very friendly male awake alert and oriented x3 in no acute distress Extrem Other: Bilateral lower extremity examination shows good capillary refill, no skin lesions noted, normal sensation light touch Left knee examination shows a minimal effusion, minimal crepitus with range of motion, tenderness along his medial and lateral joint lines, positive Olena's test, no instability Results Reviewed Results Reviewed: Standing full weight-bearing x-rays of the patient's left knee show mild diffuse joint space narrowing, no acute bony abnormalities MRI of the patient's left knee shows mild diffuse degenerative changes as well as tearing of his medial and lateral menisci Assessment & Plan Assessment & Plan (1) Left knee pain: Comment: refer to ortho for eval and tx Code(s): M25.562 - Pain in left knee Category: Medical Qualifiers: Chronicity: chronic Qualified Code(s): M25.562 - Pain in left knee; G89.29 - Other chronic pain Plan Mr. Devaughn Parry presents with progressively worsening left knee pain and mechanical symptoms due to tearing of his medial and lateral menisci. I had a lengthy discussion with the patient regarding the treatment options. At this point he has failed continued non operative treatments. The risks and benefits of left knee arthroscopic surgery were discussed at length with the patient. The patient wishes to proceed with surgery. Surgery will involve left knee diagnostic arthroscopy with arthroscopic partial medial and lateral meniscectomies. The patient does understand that he may not get 100% relief of his symptoms depending on the severity of his degenerative changes. The patient will be scheduled for next available date. He will follow-up as instructed. I spent 20 minutes in reviewing the patient's records and imaging studies, seeing the patient and documenting in the medical record. Coding Level of Care Code Est Pt Level 3 (29557) Diagnoses Chronic pain of left knee M25.562; G89.29 Chronicity: chronic
== END 2024-04-08 09:54 | disposition home or self-care (01) ==
PROVIDERS: Visit Provider Orthopaedic Surgery
DX: M25.562 Pain in left knee (principal); G89.29 Other chronic pain
CPT/HCPCS: 99214

== ENCOUNTER → 2024-04-08 09:26 | Outpatient (BNVA) | payer OTHER, SELFPAY | PROVIDERS: Visit Provider Orthopaedic Surgery | DX: S83.282A Other tear of lateral meniscus, current injury, left knee, initial encounter (principal); S83.242A Other tear of medial meniscus, current injury, left knee, initial encounter; G89.29 Other chronic pain | CPT/HCPCS: 99212 ==

== ENCOUNTER 2024-05-06 11:01 | Emergency (ER) | payer OTHER, SELFPAY ==
--- NOTE | ~2024-05-06 | CT_ITS ---
EXAMINATION: CT ABDOMEN AND PELVIS WITH CONTRAST CLINICAL INFORMATION: 53-year-old male with right lower quadrant tenderness COMPARISON: 01/09/2023 TECHNIQUE: Multidetector volumetric images were obtained from the superior aspect of the liver through the pubic symphysis following administration 85 mL of Omnipaque 350 intravenous contrast. Sagittal and coronal reformatted images were obtained on the technologist's workstation. Oral contrast: No This CT examination was performed using dose optimization techniques as appropriate, variously including the following: *Automated exposure control *Adjustment of mA and/or kV according to patient size (this includes techniques or standardized protocols for targeted exams where dose is matched to indication/reason for exam; i.e. extremities or head) *Use of iterative reconstruction technique DLP: 1063 mGy-cm FINDINGS: LUNG BASES: Bibasilar atelectasis. LIVER, GALLBLADDER, AND BILIARY TREE: Liver is of low attenuation due to hepatic steatosis, heterogeneous with questionable mass in the left lobe of the liver, measured 3 cm wide. Gallbladder is not clearly seen, likely surgically absent or contracted. CBD is not dilated. PANCREAS: Unremarkable. SPLEEN: Unremarkable. ADRENAL GLANDS: Unremarkable. KIDNEYS AND URETERS: There is simple cyst in upper pole of right kidney, measured 4.6 x 4.3 cm, there is small, approximately 0.8 cm cyst in the interpolar cortex of right kidney. Left kidney revealed lobulated parapelvic interpolar cyst, measured 4.8 x 4.5 cm and 2 lower pole 0.6 cm and 1.1 cm cysts also. BLADDER: Urinary bladder decompressed. GASTROINTESTINAL TRACT: Appendix is unremarkable. There is single diverticulum seen in the ascending colon with minimal pericolonic stranding most likely due to mild diverticulitis. The rest of colon revealed no evidence of diverticulitis or diverticulosis. Normal appendix visualized. ABDOMINAL WALL: No significant hernia is appreciated. LYMPH NODES: Normal. VASCULAR: Unremarkable. PELVIC VISCERA: Unremarkable. OSSEOUS STRUCTURES: Unremarkable. CT/CT abdomen pelvis w IV con IMPRESSION: Diverticulitis of the ascending colon associated with single and large diverticulum and no evidence of appendicitis. Bilateral renal cysts. Hepatic steatosis with questionable mass possibly hemangioma, correlate with ultrasound or MRI Fleischner guidelines were followed.
--- NOTE | 2024-05-06 11:11 | ED_ITS ---
HPI - General Adult General Chief complaint: General Medical Stated complaint: side pain Time Seen by Provider: 05/06/24 11:26 Source: patient Mode of arrival: ambulatory Limitations: no limitations History of Present Illness ED Provider: angie ANN narrative: Patient is a 53-year-old male with history of cholecystectomy, chronic constipation, obesity, asthma presenting to the emergency department with complaint of right lower quadrant abdominal pain, nausea, vomiting and diarrhea since Saturday or Saturday. Denies fevers. Denies family members at home with similar symptoms. Reports some urinary frequency and dribbling after urination but states this is his baseline and is not related to his current pain. States he has not noted any blood in his vomit or stool. Denies current nausea. Has not taken any over the counter medications for his symptoms. Denies back or flank pain. MD complaint: abdominal pain Onset (ago): day(s) Location: abdomen Radiation: non-radiation Severity scale (1-10): 8 Quality: sharp Pain Consistency: constant Relieving factors: none Associated symptoms: nausea/vomiting and other Treatments prior to arrival: none Related Data Home Medications ?Medication ?Instructions ?Recorded ?Confirmed fluoxetine 20 mg capsule 20 mg PO DAILY 03/05/24 04/08/24 lorazepam 0.5 mg tablet mg PO PRN 03/05/24 04/08/24 buspirone 10 mg tablet 10 mg PO BID 04/02/24 04/08/24 melatonin 3 mg tablet 3 mg PO BEDTIME 04/02/24 04/08/24 pantoprazole 20 mg tablet,delayed 20 mg PO BID 04/02/24 04/08/24 release trazodone 50 mg tablet 50 mg PO BEDTIME 04/02/24 04/08/24 ziprasidone HCl 20 mg capsule 20 mg PO BID 04/02/24 04/08/24 Previous Rx's ?Medication ?Instructions ?Recorded blood pressure kit-extra large #1 ea 11/20/22 miscellaneous medical supply See Rx Instructions miscellaneous 11/20/22 .COMPLEX #1 ea umeclidinium 62.5 mcg-vilanterol 1 inh inhalation DAILY 30 days #1 02/27/23 25 mcg/actuation powdr for ea inhalation (Anoro Ellipta) atorvastatin 40 mg tablet 40 mg PO BEDTIME 90 days #90 tabs 01/30/24 docusate sodium 100 mg capsule 200 mg (2 x 100 mg) PO BEDTIME 01/30/24 (Colace) #180 caps hydrochlorothiazide 12.5 mg tablet 12.5 mg PO DAILY 90 days #90 tabs 01/30/24 loratadine 10 mg tablet 10 mg PO DAILY #90 tabs 01/30/24 albuterol sulfate 1.25 mg/3 mL 1.25 mg (3 mL) inhalation Q4H 1 02/05/24 solution for nebulization month #540 mL albuterol sulfate 90 mcg/actuation 2 puff inhalation Q4-6H PRN 02/05/24 aerosol inhaler (Ventolin HFA) shortness of breath or wheezing #8.5 grams ibuprofen 600 mg tablet 600 mg PO Q6H PRN fever or pain 03/27/24 #30 tabs nifedipine 30 mg tablet,extended 30 mg PO DAILY #90 tabs 04/02/24 release amoxicillin 875 mg-potassium 1 tab PO BID #19 tabs 05/06/24 clavulanate 125 mg tablet Allergies Allergy/AdvReac Type Severity Reaction Status Date / Time lisinopril AdvReac Cough Verified 05/06/24 11:18 Review of Systems 2 Review of Systems: As per HPI. Yes all other systems are reviewed and are negative Constitutional: Constitutional: Reports as per HPI PMFSH Past Medical History Medical History Breast mass, left Breast mass, right Cyst of right breast Chronic constipation Bilateral leg cramps Sore throat Rib fractures Tachycardia Impacted cerumen, left ear Low back strain Morbid obesity Pre-op evaluation Elevated blood pressure reading Infected tooth Normal physical exam Asthma, mild intermittent, poorly controlled Poor historian Asthma attacks lasting more than 24 hours Left upper quadrant abdominal pain Asthma Surgical History Umbilical hernia, incarcerated (12/12/23) Subareolar mass of left breast History of excision of mass (07/31/23) History of surgery on arm Hx of cholecystectomy Family History Family History Other Substance abuse Social History Social History Household Members: Family Housing: House Alcohol intake: never Patient Tobacco Use Status: Former Tobacco user e-Cigarette/Vaping Use: Never Used Second Hand Smoke Exposure: No Advance Directives: No Do you have a plan to hurt others: No Plan service: No Current occupational status: employed and unemployed Current occupation: works nights Current occupational exposures/hazards: No Gender identity: Male Cognitive needs: No Hearing needs: Yes Vision needs: Yes Physical Exam ED Vital Signs: Vital Signs - 24 hr 05/06/24 11:13 05/06/24 15:43 Temperature 98.3 F 98.0 F Pulse Rate 88 67 Respiratory Rate 18 20 Blood Pressure 152/95 H 163/93 H Pulse Oximetry 94 95 Oxygen Delivery Method Room Air Room Air BMI result Body Mass Index 47.8 Vital signs have been reviewed and appear to be correct. Blood pressure elevated. Heart rate normal. Respiratory rate normal. Temperature normal. Oxygen saturation normal. Const General: cooperative and no acute distress Orientation/consciousness: oriented to person, oriented to place, oriented to time and patient oriented x3 Limitations: no limitations HENMT Head: Yes normocephalic and Yes atraumatic Ears: external ears normal General nose exam: Normal external nose present Face and sinus: Yes face symmetric Mouth: oropharynx normal and moist mucous membranes Throat: Yes uvula midline Eyes Pupils: Equal, round and reactive pupils present Neck Neck: Yes normal visual inspection and Yes supple Resp Effort & Inspection: normal respiratory effort and able to speak in complete sentences Auscultation: clear to auscultation bilaterally Cardio Rate: regular rate Rhythm: regular rhythm Heart sounds: S1 normal heart sound present and S2 normal heart sound present GI Palpation (GI): Soft to palpation, Tenderness to palpation present (GI) in the RLQ, no guarding and No Rebound tenderness present Auscultation: normoactive bowel sounds General: Yes no CVA tenderness Back/Spine/Pelvis Back: no CVA tenderness Skin General skin exam: elasticity normal and turgor normal Neuro General: oriented to person, oriented to place, oriented to time, patient oriented x3, moves all extremities, no focal motor deficits and CN's II-XI intact bilaterally Cranial nerves: Yes Equal, round and reactive pupils present Cognition (Neuro): normal cognition Extrem General: Yes full ROM, Yes no pedal edema and Yes no calf tenderness Psych Mental Status: mental status grossly normal Affect: normal affect Thought process: Normal thought process present Course Reevaluation(s) Reevaluation #1: CT/CT abdomen pelvis w IV con IMPRESSION: Diverticulitis of the ascending colon associated with single and large diverticulum and no evidence of appendicitis. Bilateral renal cysts. Hepatic steatosis with questionable mass possibly hemangioma, correlate with ultrasound or MRI Discussed these findings with patient. He is tolerating oral intake, no evidence of complication on CT. Feel that he is stable for discharge home, will send prescription for Augmentin to pharmacy, discussed bland diet follow, outpatient follow-up with PCP regarding possible liver mass. All questions answered. Time: 17:11 Medications Administered Discontinued Medications Generic Name Dose Route Start Last Admin Trade Name Freq PRN Reason Stop Dose Admin Sodium Chloride 1,000 mls @ 999 mls/hr 05/06/24 12:00 05/06/24 13:22 Ns IV 05/06/24 13:00 Infused .Q1H1M KATHY Infusion Iohexol 100 ml 05/06/24 13:02 05/06/24 13:03 Iohexol 350 Mg/Ml 100 Ml Infus..Btl IV 05/06/24 13:03 85 ml ONCE ONE Administration Ketorolac Tromethamine 30 mg 05/06/24 11:50 05/06/24 12:13 Ketorolac Tromethamine 30 Mg/Ml Vial IVPUSH 05/06/24 11:51 30 mg ONCE ONE Administration Medical Decision Making Medical Decision Making [facility] Narrative: Patient is a 53-year-old male with history of cholecystectomy, chronic constipation, obesity, asthma presenting to the emergency department with complaint of right lower quadrant abdominal pain, nausea, vomiting and diarrhea since Saturday or Saturday. On exam patient is awake, A+Ox3, BP elevated, VS otherwise WNL, afebrile, normal neurological exam without focal deficits, physical exam findings as above. Given reported symptoms and physical exam findings, initial differential includes appendicitis, bowel obstruction, UTI, renal/ureteral calculi, gastroenteritis. Labs notable for no leukocytosis, no anemia, no significant electrolyte abnormalities, no evidence of GUSTAVO, no elevation of transaminases. Patient signed out to [facility] [place] pending CT and UA results. Differential Diagnosis Differential Diagnoses: The differential diagnosis associated with the presentation includes As per [facility] Admission/Observation Consideration of admission/observation: Escalation of care including admission/observation considered Patient would have been admitted to the hospital had their work up had any findings where hospital admission was appropriate and their clinical presentation warranted hospital admission. Lab Data [facility] Lab Attestation statement: I reviewed the patient's lab results. As per [facility] 05/06/24 12:04 05/06/24 12:04 Labs: Lab Results 05/06/24 05/06/24 Range/Units 12:04 15:59 WBC 8.5 (4.8-10.8) X10*3/uL RBC 5.80 (4.60-5.80) X10*6/uL Hgb 14.6 (14.0-18.0) g/dl Hct 45.3 (42.0-52.0) % MCV 78.1 L (80.0-98.0) fL MCH 25.2 L (27.0-33.0) pg MCHC 32.2 (31.0-36.0) g/dl RDW 16.2 H (11.0-16.0) % Plt Count 329 (160-400) X10*3/uL MPV 9.3 L (9.4-12.4) fL Immature Gran % (Auto) 0.7 H (0.0-0.4) % Neut % (Auto) 63.5 (45-73) % Lymph % (Auto) 24.5 (20-40) % Nye % (Auto) 7.3 (2-11) % Eos % (Auto) 3.4 (0-4) % Baso % (Auto) 0.6 (0-2) % Lymph # (Auto) 2.1 (1.2-4.9) X10*3/uL Nye # (Auto) 0.6 (0.1-1.2) X10*3/uL Eos # (Auto) 0.3 (0.0-0.4) X10*3/uL Baso # (Auto) 0.1 (0.0-0.2) X10*3/uL Abs Immat Gran (auto) 0.06 H (0.00-0.03) X10*3/uL Absolute Neuts (auto) 5.4 (2.0-8.3) x10*3/uL Absolute Nucleated RBC 0.000 (0.0-0.012) X10*3/uL Nucleated RBC % (auto) 0.0 (0.0-0.2) /100WBC Sodium 139 (135-145) mmol/L Potassium 4.4 (3.3-5.1) mmol/L Chloride 103 (96-108) mmol/L Carbon Dioxide 30 H (22-29) mmol/L Anion Gap 10 L (12-20) BUN 13 (9-16) mg/dL Creatinine 0.90 (0.5-1.4) mg/dL Estim Creat Clear Calc 112.8 Estimated GFR > 60 Random Glucose 112 (60-115) mg/dL Calcium 9.7 (8.4-10.2) mg/dL Total Bilirubin 0.4 (0.0-1.0) mg/dL AST 18 (5-37) U/L ALT 23 (0-40) U/L Alkaline Phosphatase 75 (39-117) U/L Total Protein 7.5 (6.5-8.0) g/dL Albumin 4.2 (3.5-5.0) g/dL Urine Color Yellow Urine Appearance Clear Urine pH 5.5 (5.0-9.0) Ur Specific [place] >= 1.030 H (1.005-1.025) Urine Protein Trace (Neg-Trace) mg/dL Urine Glucose (UA) Negative (Negative) mg/dL Urine Ketones Negative (Negative) mg/dL Urine Blood Negative (Negative) Urine Nitrite Negative (Negative) Ur Leukocyte Esterase Negative (Negative) Influenza Type A (PCR) NEGATIVE (Negative) Influenza Type B (PCR) NEGATIVE (Negative) RSV RNA Qual (PCR) NEGATIVE (Negative) SARS-CoV-2 RNA (RT-PCR) NEGATIVE (Negative) External Record Review External record reviewed: Inpatient record, Office record and Outpatient record Discharge Plan Discharge Clinical Impression: Diverticulitis, Hepatic steatosis, Lesion of liver Patient Disposition: Home, Self-Care Instructions: Diverticulitis (ED), Liver Disease Diet (DC), Diverticulitis Diet (ED) Additional Instructions: Complete the entire course of antibiotics as prescribed. Over the next few days consume clear liquids and follow a bland diet afterwards. Follow-up with your primary care provider regarding the lesion on your liver incidentally found on CT. Return back to emergency department any new or worsening symptoms or concerns. Prescriptions: New amoxicillin-pot clavulanate 875-125 mg tablet 1 tab PO BID Qty: 19 0RF No Action Anoro Ellipta 62.5-25 mcg/actuation blister with device 1 inh inhalation DAILY 30 Days Qty: 1 6RF albuterol sulfate [Ventolin HFA] 90 mcg/actuation HFA aerosol inhaler 2 puff inhalation Q4-6H PRN (Reason: shortness of breath or wheezing) Qty: 8.5 1RF albuterol sulfate 1.25 mg/3 mL solution for nebulization 1.25 mg inhalation Q4H 30 Days Qty: 540 1RF ibuprofen 600 mg tablet 600 mg PO Q6H PRN (Reason: fever or pain) Qty: 30 0RF atorvastatin 40 mg tablet 40 mg PO BEDTIME 90 Days Qty: 90 1RF docusate sodium [Colace] 100 mg capsule 200 mg PO BEDTIME Qty: 180 2RF hydrochlorothiazide 12.5 mg tablet 12.5 mg PO DAILY 90 Days Qty: 90 1RF loratadine 10 mg tablet 10 mg PO DAILY Qty: 90 0RF (DME) blood pressure kit-extra large Kit See Rx Instructions .Route Qty: 1 0RF Rx Instructions: As directed miscellaneous medical supply Misc See Rx Instructions miscellaneous .COMPLEX Qty: 1 0RF Rx Instructions: air purifier for personal use as directed; ziprasidone HCl 20 mg capsule 20 mg PO BID buspirone 10 mg tablet 10 mg PO BID pantoprazole 20 mg tablet,delayed release (DR/EC) 20 mg PO BID trazodone 50 mg tablet 50 mg PO BEDTIME melatonin 3 mg tablet 3 mg PO BEDTIME nifedipine 30 mg tablet extended release 30 mg PO DAILY Qty: 90 0RF lorazepam 0.5 mg tablet PO PRN fluoxetine 20 mg capsule 20 mg PO DAILY Referrals: Sravani Ledesma, [employer] [Primary Care Provider] - Print Language: Choose Not To Answer
[2024-05-06 11:13] VITALS: BP 152/95; PULSE 88; RESP 18; TEMP 36.8; O2SAT 94; BMI 47.8
[2024-05-06 12:08] LABS: MANUAL DIFF FLAG NO
[2024-05-06 12:10] LABS: Basophils Absolute Auto 0.1 X10*3/uL (0.0-0.2); Basophils Percent Auto 0.6 % (0-2); Eosinophils Absolute Auto 0.3 X10*3/uL (0.0-0.4); Eosinophils Percent Auto 3.4 % (0-4); Hematocrit 45.3 % (42.0-52.0); Hemoglobin 14.6 g/dl (14.0-18.0); Imm Gran Abs Auto 0.06 X10*3/uL (0.00-0.03); Imm Gran Pct Auto 0.7 % (0.0-0.4); Lymphocytes Absolute Auto 2.1 X10*3/uL (1.2-4.9); Lymphocytes Percent Auto 24.5 % (20-40); Mean Corpuscular HGB Conc 32.2 g/dl (31.0-36.0); Mean Corpuscular Hemoglobin 25.2 pg (27.0-33.0); Mean Corpuscular Volume 78.1 fL (80.0-98.0); Mean Platelet Volume 9.3 fL (9.4-12.4); Monocytes Absolute Auto 0.6 X10*3/uL (0.1-1.2); Monocytes Percent Auto 7.3 % (2-11); Neutrophils Absolute Auto 5.4 x10*3/uL (2.0-8.3); Neutrophils Percent Auto 63.5 % (45-73); Platelet Count 329 X10*3/uL (160-400); Red Cell Distribution Width 16.2 % (11.0-16.0); White Blood Count 8.5 X10*3/uL (4.8-10.8)
[2024-05-06] MEDS: Ketorolac Tromethamine 30 MG/ML VIAL IVPUSH (12:13)
[2024-05-06] MEDS: 0.9 % Sodium Chloride 1,000 ML 999 ML IV (12:13)
[2024-05-06 12:24] LABS: Alanine Aminotransferase 23 U/L (0-40); Albumin Level 4.2 g/dL (3.5-5.0); Alkaline Phosphatase 75 U/L (39-117); Anion Gap 10 (12-20); Aspartate Amino Transferase 18 U/L (5-37); Bilirubin Total 0.4 mg/dL (0.0-1.0); Blood Urea Nitrogen 13 mg/dL (9-16); Calcium 9.7 mg/dL (8.4-10.2); Carbon Dioxide 30 mmol/L (22-29); Chloride 103 mmol/L (96-108); Creatinine Clr Calc Pharmacy 112.8; Estimated Glomerular Filt Rate > 60; Glucose Random 112 mg/dL (60-115); Potassium 4.4 mmol/L (3.3-5.1); Sodium 139 mmol/L (135-145); Total Protein 7.5 g/dL (6.5-8.0)
[2024-05-06 12:49] LABS: Influenza A PCR NEGATIVE (Negative); Influenza B PCR NEGATIVE (Negative); Resp Syncy Virus RNA Qual PCR NEGATIVE (Negative); SARS COV2 PCR INHOUSE NEGATIVE (Negative)
[2024-05-06] MEDS: iohexoL 350 MG/ML 100 ML INFUS..BTL IV (13:03)
[2024-05-06 15:43] VITALS: BP 163/93; PULSE 67; RESP 20; TEMP 36.7; O2SAT 95
[2024-05-06 16:14] LABS: Appearance Urine Clear; Color Urine Yellow; Glucose Urine UA Negative (Negative); Leukocyte Esterase Urine Negative (Negative); Nitrite Urine Negative (Negative); PH 5.5 (5.0-9.0); Specific Gravity - Urine >= 1.030 (1.005-1.025); Urine Blood Negative (Negative); Urine Ketones Negative (Negative); Urine Protein Trace mg/dL (Neg-Trace)
[2024-05-06] MEDS: Amoxicillin/Potassium Clav 875 MG TABLET PO (17:21)
[2024-05-06 17:24] VITALS: BP 163/93; PULSE 67; RESP 20; TEMP 36.7; O2SAT 95
== END 2024-05-06 17:24 | disposition home or self-care (01) ==
PROVIDERS: Registered Nurse Emergency; Emergency Provider Emergency Medicine; PCP Nurse Practitioner Family
DX: K57.32 Diverticulitis of large intestine without perforation or abscess without bleeding (principal); R11.2 Nausea with vomiting, unspecified; E88.89 Other specified metabolic disorders; K76.9 Liver disease, unspecified; R10.2 Pelvic and perineal pain; Z03.818 Encounter for observation for suspected exposure to other biological agents ruled out; Z79.899 Other long term (current) drug therapy
CPT/HCPCS: 0241U; 74177; 80053; 81003; 85025; 96361; 96374; 99284; J1885; Q9967

== ENCOUNTER 2024-05-22 06:09 | Day surgery (SDC) | payer OTHER, SELFPAY ==
[2024-05-20 09:44] VITALS: BMI 47.5
--- NOTE | 2024-05-20 12:53 | P.CONAN_ITS ---
Documented by User: Jumana Amato NP 05/20/24 13:10 HPI - Anesthesia Eval Consult details Narrative: 53yo M for Left Knee Arthroscopy with partial medial and lateral menscectomy [facility] 05/06/24 with divertic. Abx course completed and pt feeling better. Incidental lesion on liver noted. Has PCP appt for f/u 07/2024. PMFSH Active Problems Active Problems: All Active Problems Renal cyst (Acute) Microalbuminuria (Acute) Prediabetes (Acute) Left knee pain (Acute) Blurred vision (Acute) Screen for colon cancer (Acute) Morbid obesity with BMI of 45.0-49.9, adult (Acute) Bilateral renal cysts (Acute) Fatty liver (Acute) Encounter for general adult medical examination without abnormal findings (Acute) Status post umbilical hernia repair, follow-up exam (Acute) Umbilical hernia, incarcerated (Acute 12/12/23) Hypertension (Acute) High cholesterol (Acute) COPD (chronic obstructive pulmonary disease) (Acute) Acid reflux (Acute) Asthma (Acute) Past Medical History Medical History Breast mass, left Breast mass, right Cyst of right breast Chronic constipation Bilateral leg cramps Sore throat Rib fractures Tachycardia Impacted cerumen, left ear Low back strain Morbid obesity Pre-op evaluation Elevated blood pressure reading Infected tooth Normal physical exam Asthma, mild intermittent, poorly controlled Poor historian Asthma attacks lasting more than 24 hours Left upper quadrant abdominal pain Asthma Family History Family History Other Substance abuse Family history of problems with anesthesia: No Surgical History Surgical History Umbilical hernia, incarcerated (12/12/23) Subareolar mass of left breast History of excision of mass (07/31/23) History of surgery on arm Hx of cholecystectomy History of Problems with Anesthesia: Yes (Very bad sore throat after LMA) Social History Social History Household Members: Family Housing: House Alcohol intake: never Patient Tobacco Use Status: Former Tobacco user Tobacco use type: Cigarette e-Cigarette/Vaping Use: Never Used Second Hand Smoke Exposure: No Use of substances other than those prescribed or required for medical reasons: No Are you DNR?: No Advance Directives: No Advance Directives Information Provided: Yes Advance Directives on File: No Recently lost weight without trying: No Poor oral hygiene: Yes ( many missing teeth ) service: No Current occupational status: employed and unemployed Current occupation: works nights Current occupational exposures/hazards: No Gender identity: Male Cognitive needs: No Hearing needs: Yes Vision needs: Yes Meds Allergies Allergy/AdvReac Type Severity Reaction Status Date / Time lisinopril AdvReac Cough, Verified 05/20/24 09:42 headache Active Medications: Current Medications Cefazolin Sodium/Dextrose (Ancef) 2 gm in 50 mls @ 100 mls/hr IV PREOP ONE Stop: 05/22/24 05:58 Home Medications ?Medication ?Instructions ?Recorded ?Confirmed ?Last Taken ?Type fluoxetine 20 mg capsule 20 mg PO DAILY 03/05/24 04/08/24 Unknown History lorazepam 0.5 mg tablet mg PO PRN 03/05/24 04/08/24 Unknown History buspirone 10 mg tablet 10 mg PO BID 04/02/24 04/08/24 Unknown History melatonin 3 mg tablet 3 mg PO BEDTIME 04/02/24 04/08/24 Unknown History pantoprazole 20 mg tablet,delayed 20 mg PO BID 04/02/24 05/20/24 Unknown History release trazodone 50 mg tablet 50 mg PO BEDTIME 04/02/24 04/08/24 Unknown History ziprasidone HCl 20 mg capsule 20 mg PO BID 04/02/24 04/08/24 Unknown History Exam Height,Weight and Vital Signs: Height 5 ft 3 in Weight 121.563 kg Pertinent Lab Results Pertinent Lab Results: Laboratory Tests 05/06/24 12:04 WBC 8.5 Hgb 14.6 Hct 45.3 Plt Count 329 Sodium 139 Potassium 4.4 Chloride 103 Carbon Dioxide 30 H BUN 13 Creatinine 0.90 Narrative Narrative: EKG Vent. Rate : 081 BPM Atrial Rate : 081 BPM P-R Int : 186 ms QRS Dur : 072 ms QT Int : 400 ms P-R-T Axes : 013 001 061 degrees QTc Int : 464 ms Normal sinus rhythm Normal ECG When compared with ECG of 27-FEB-2023 09:03, No significant change was found CT/CT abdomen pelvis w IV con 04/2024 IMPRESSION: Diverticulitis of the ascending colon associated with single and large diverticulum and no evidence of appendicitis. Bilateral renal cysts. Hepatic steatosis with questionable mass possibly hemangioma, correlate with ultrasound or MRI Assessment and Plan Assessment Anesthesia Assessment: Chart Reviewed Final Anesthetic Review Family History of Problems with Anesthesia: No History of Problems with Anesthesia: Yes (Very bad sore throat after LMA) Documented by User: Claudette Panda MD 05/22/24 09:05 PENDING SALE TO [facility] Active Problems Active Problems: All Active Problems Renal cyst (Acute) Microalbuminuria (Acute) Prediabetes (Acute) Left knee pain (Acute) Blurred vision (Acute) Screen for colon cancer (Acute) Morbid obesity with BMI of 45.0-49.9, adult (Acute) BMI 47.8 Bilateral renal cysts (Acute) Fatty liver (Acute) Encounter for general adult medical examination without abnormal findings (Acute) Status post umbilical hernia repair, follow-up exam (Acute) Umbilical hernia, incarcerated (Acute 12/12/23) Hypertension (Acute) High cholesterol (Acute) COPD (chronic obstructive pulmonary disease) (Acute) Acid reflux (Acute) Asthma (Acute) Denies MAEGAN Past Medical History Medical History Breast mass, left Breast mass, right Cyst of right breast Chronic constipation Bilateral leg cramps Sore throat Rib fractures Tachycardia Impacted cerumen, left ear Low back strain Morbid obesity Pre-op evaluation Elevated blood pressure reading Infected tooth Normal physical exam Asthma, mild intermittent, poorly controlled Poor historian Asthma attacks lasting more than 24 hours Left upper quadrant abdominal pain Asthma Family History Family History Other Substance abuse Family history of problems with anesthesia: No Surgical History Surgical History Umbilical hernia, incarcerated (12/12/23) Subareolar mass of left breast History of excision of mass (07/31/23) History of surgery on arm Hx of cholecystectomy History of Problems with Anesthesia: Yes Social History Social History Household Members: Family Housing: House Alcohol intake: never Patient Tobacco Use Status: Former Tobacco user Tobacco use type: Cigarette e-Cigarette/Vaping Use: Never Used Second Hand Smoke Exposure: No Use of substances other than those prescribed or required for medical reasons: No Are you DNR?: No Advance Directives: No Advance Directives Information Provided: Yes Advance Directives on File: No Recently lost weight without trying: No Poor oral hygiene: Yes ( many missing teeth ) service: No Current occupational status: employed and unemployed Current occupation: works nights Current occupational exposures/hazards: No Gender identity: Male Cognitive needs: No Hearing needs: Yes Vision needs: Yes Meds Allergies Allergy/AdvReac Type Severity Reaction Status Date / Time lisinopril AdvReac Cough, Verified 05/20/24 09:42 headache Home Medications ?Medication ?Instructions ?Recorded ?Confirmed ?Last Taken ?Type fluoxetine 20 mg capsule 20 mg PO DAILY 03/05/24 04/08/24 Unknown History lorazepam 0.5 mg tablet mg PO PRN 03/05/24 04/08/24 Unknown History buspirone 10 mg tablet 10 mg PO BID 04/02/24 04/08/24 Unknown History melatonin 3 mg tablet 3 mg PO BEDTIME 04/02/24 04/08/24 Unknown History pantoprazole 20 mg tablet,delayed 20 mg PO BID 04/02/24 05/20/24 Unknown History release trazodone 50 mg tablet 50 mg PO BEDTIME 04/02/24 04/08/24 Unknown History ziprasidone HCl 20 mg capsule 20 mg PO BID 04/02/24 04/08/24 Unknown History Exam Height,Weight and Vital Signs: Height 5 ft 3 in Weight 121.563 kg Vital Signs Temp Pulse Resp BP Pulse Ox O2 Del Method 05/22/24 08:25 71 16 05/22/24 08:08 156/110 H 05/22/24 07:53 98.5 F 70 20 162/111 H 96 Room Air Pertinent Lab Results Pertinent Lab Results: Laboratory Tests 05/06/24 12:04 WBC 8.5 Hgb 14.6 Hct 45.3 Plt Count 329 Sodium 139 Potassium 4.4 Chloride 103 Carbon Dioxide 30 H BUN 13 Creatinine 0.90 Airway Mallampati Class: III TM Dist: >3cm Neck ROM: Full Loose/Missing/Broken Teeth: Yes (Many missing. 1 top Right extracted 4 days ago. Denies loose teeth.) Heart: RRR Lungs: ?Occasional wheeze Assessment and Plan Assessment Anesthesia Assessment: Anesthesia Plan Discussed and Chart Reviewed Final Anesthetic Review Family History of Problems with Anesthesia: No History of Problems with Anesthesia: Yes NPO: Yes ASA Class: III Final Preanesthetic Review: No Changes in Pt Med Stat, Meds/Allgs Chart Reviewed, Consent Obtained/Reviewed and Anes Risks/Benef Reviewed Patient Risk: Intermediate Procedure Risk: Low Assessment/Block/Sedation in SS: Assess/Block/Sedation-SS Anesthetic Plan Anesthetic Plan: GA Disposition: Standard PACU
[2024-05-22] VITALS (12 sets, daily range): BP systolic 110–162; BP diastolic 71–111; PULSE 69–79; RESP 12–20; TEMP 36.4–36.9; O2SAT 92–98; BMI 47.8
[2024-05-22] MEDS: Lactated Ringers 1,000 ML 100 ML IVCONT (08:12)
[2024-05-22] MEDS: Albuterol Sulfate (0.083%) 2.5 MG/3 ML VIAL.NEB INHALE (08:23)
--- NOTE | 2024-05-22 08:25 | PC.NURSE ---
pt having resp tx nad
--- NOTE | 2024-05-22 09:56 | PM.OP ---
Brief Operative Note Date of Service: 05/22/24 Pre-op diagnosis: Left knee medial meniscus tear, left knee lateral meniscus tear Post-op diagnosis: same Procedure: Left knee diagnostic arthroscopy with left knee arthroscopic partial medial and lateral meniscectomies, left knee arthroscopic chondroplasty of the undersurface of the patella Implants: none Surgeon: Wil Luevano MD Anesthesia: GLMA Was an [employer] Installation Crew Member used for this Procedure?: No Estimated blood loss (mL): 10 Pathology: none sent Condition: stable Disposition: PACU
--- NOTE | 2024-05-22 09:57 | W.PM.OPN ---
Operative Note Operative Note Date of Service: 05/22/24 Narrative: After the patient was identified as Socrates Parry and his left knee was initialed by myself they were brought to the operating room where general anesthesia was induced by the anesthesiologist in routine fashion. The patient was given 2 g of IV Ancef preoperatively for infection prophylaxis. The patient's left lower extremity was prepped and draped in sterile fashion. A formal time-out was completed. Marcaine was injected into the planned incision sites as well as the patient's left knee joint. A #11 scalpel blade was used to make an anterolateral portal 1 cm proximal to the joint line and 1 cm lateral to the patellar tendon. Blunt trocar technique was used to enter the suprapatellar pouch with the knee in extension. Diagnostic arthroscopy showed multiple bands of thickened plica which would be excised at the end of the procedure. There were no loose bodies or abnormalities found in either the medial or lateral gutters. The articular surface of the patella showed diffuse grades 1 and 2 degenerative changes. The trochlear groove articular surface showed diffuse grade 1 degenerative changes. The patient's knee was flexed to 45 degrees and a valgus force was placed upon it. The medial compartment was entered. An anteromedial portal was made 1 cm proximal to the joint line and 1 cm medial to the patellar tendon. Probing of the medial meniscus showed a radial tear of the posterior horn. A partial medial meniscectomy was performed using the arthroscopic shaver. Following the partial meniscectomy the remainder of the meniscus tissue was stable. There were diffuse grade 1 degenerative changes of the medial femoral condyle as well as grade 1 degenerative changes of the medial tibial plateau. The patient's knee was placed into a neutral position. There was no injury to the anterior cruciate ligament. The patient's knee was then placed in the figure of 4 position and the lateral compartment was entered. There was a radial tear of the anterior horn of the lateral meniscus. Thus, a partial lateral meniscectomy was performed using the arthroscopic shaver. Following the partial meniscectomy the remainder of the meniscus tissue was stable. There were minimal degenerative changes of the lateral femoral condyle and lateral tibial plateau. The patient's knee was once again brought into extension and the suprapatellar pouch was entered. The arthroscopic shaver and the ArthroCare Wand were used to excise the thickened bands of plica. The undersurface of the patella was then made smooth using the arthroscopic shaver. The knee joint was irrigated and then drained. All arthroscopic instruments were removed. The 2 portals were closed with 3-0 nylon interrupted suture. The knee joint was injected with Marcaine. Dry sterile dressing and Chapito bandages were placed over the patient's knee. The patient was awoken and extubated in the operating room. The patient was transferred to the recovery room in stable condition.
[2024-05-22] MEDS: cefTRIAXone sodium 1 GM in 0.9 % Sodium Chloride 50 ML IV (10:09)
[2024-05-22] MEDS: fentaNYL citrate/PF 100 MCG/2 ML VIAL 25 MCG IVPUSH ×2 (10:25→10:49)
[2024-05-22] MEDS: oxyCODONE HCl Immed Release 5 MG TABLET PO (10:30)
--- NOTE | 2024-05-22 13:12 | PC.NURSE ---
11:20 Viri from pipe washer services present to review d/d instructions with patient in detail. patient verbalized understanding and has copies in Tongan. aware to f/u with surgeon.
== END 2024-05-22 12:00 | disposition home or self-care (01) ==
PROVIDERS: PCP Nurse Practitioner Family; Visit Provider Orthopaedic Surgery
PROC: (CPT 29870; principal; 2024-05-22 09:00)
DX: S83.242A Other tear of medial meniscus, current injury, left knee, initial encounter (principal); S83.282A Other tear of lateral meniscus, current injury, left knee, initial encounter; M67.52 Plica syndrome, left knee; J45.20 Mild intermittent asthma, uncomplicated; W17.89XA Other fall from one level to another, initial encounter; Y93.89 Activity, other specified; Y92.9 Unspecified place or not applicable; Y99.9 Unspecified external cause status
CPT/HCPCS: 29880; J0131; J0171; J0690; J0696; J1100; J1885; J2250; J2405; J2704; J2795; J3010

== ENCOUNTER → 2024-05-22 06:09 | Outpatient (BNV) | payer OTHER, SELFPAY | PROVIDERS: PCP Nurse Practitioner Family; Visit Provider Orthopaedic Surgery | DX: S83.242A Other tear of medial meniscus, current injury, left knee, initial encounter (principal); S83.282A Other tear of lateral meniscus, current injury, left knee, initial encounter | CPT/HCPCS: 29880 ==

== ENCOUNTER 2024-06-02 08:39 | Outpatient (REF) | payer OTHER, SELFPAY ==
--- NOTE | ~2024-06-02 | CT_ITS ---
EXAMINATION: CT ABDOMEN WITH CONTRAST CLINICAL INFORMATION: Cyst of kidney. COMPARISON: CT abdomen and pelvis 05/06/2024: Bilateral renal cysts. Hepatic steatosis with questionable mass possibly hemangioma, correlate with ultrasound or MRI TECHNIQUE: Contiguous axial thin section helical images of the abdomen were performed following the administration of oral contrast and 85 mL of Omnipaque 350 intravenous contrast. The data set was reformatted in the coronal and sagittal planes and reviewed on an independent workstation. This CT examination was performed using dose optimization techniques as appropriate, variously including the following: *Automated exposure control *Adjustment of mA and/or kV according to patient size (this includes techniques or standardized protocols for targeted exams where dose is matched to indication/reason for exam; i.e. extremities or head) *Use of iterative reconstruction technique DLP: 542 mGy-cm FINDINGS: LUNG BASES: The visualized lung bases are unremarkable. LIVER, GALLBLADDER, AND BILIARY TREE: The liver is normal in size and shape but probably demonstrates decreased attenuation although measurements after contrast are difficult. Again seen in the left lobe of the liver are 2 somewhat ill-defined hyperattenuating masses measuring around 3 to 3.5 cm each. No other focal hepatic lesion or biliary ductal dilatation is present. The gallbladder is not seen. PANCREAS: Unremarkable. SPLEEN: Unremarkable. ADRENAL GLANDS: Unremarkable. KIDNEYS AND URETERS: The kidneys are normal in size, shape, and attenuation. No hydronephrosis, hydroureter, or calculi seen. Multiple bilateral benign Bosniak class I renal cysts are noted, which require no additional imaging or follow-up. No solid renal masses are seen. GASTROINTESTINAL TRACT: The visualized small and large bowel are unremarkable. The appendix is unremarkable. ABDOMINAL WALL: No significant hernia is appreciated. LYMPH NODES: No retroperitoneal lymphadenopathy. VASCULAR: Unremarkable. 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 CT/CT abdomen w IV con IMPRESSION: 1. There are two ill-defined hyperattenuating masses in the left lobe of the liver. These are indeterminate on this single phase study. Differential diagnosis would include neoplasm as well as focal fatty sparing MRI would be the exam of choice for further evaluation. 2. Other incidental findings as described above including probable hepatic steatosis and multiple benign Bosniak class I renal cysts, which require no additional imaging or follow-up. 3. Chronic right-sided rib fractures with non-union. Fleischner guidelines were followed. Electronically signed by: Storm Azul MD 06/17/2024 02:27 PM EDT RP
[2024-06-02] MEDS: iohexoL 350 MG/ML 100 ML INFUS..BTL 85 ML IV (09:38)
== END 2024-06-02 08:40 | disposition home or self-care (01) ==
LOC: HO.CT 08:39
PROVIDERS: PCP Nurse Practitioner Family; Visit Provider Internal Medicine Hypertension Specialist
DX: N28.1 Cyst of kidney, acquired (principal)
CPT/HCPCS: 74160; Q9967

== ENCOUNTER 2024-06-04 09:06 | Outpatient (AMB) | payer OTHER, SELFPAY ==
[2024-06-04 09:22] VITALS: BP 150/100; PULSE 80; O2SAT 94
--- NOTE | 2024-06-04 09:22 | HO.NEPHOV_ITS ---
Vital Signs 06/04/24 09:22 Weight 266 lb BP 150/100 H Blood Pressure Location Lt brachial Position Sitting Pulse 80 Pulse Source Pulse Oximeter Pulse Oximetry (%) 94 Oxygen Delivery Method Room Air Intake Visit Reasons: Microalbuminuria/ Conf Interim Controller Required: Yes Interim Controller Name: [id number] iva Accompanied by: Self / Same As Patient Allergies lisinopril Adverse Reaction (Verified 06/04/24 09:25) Cough, headache Medication List - Last Reconciled 06/04/24 by Jorge Luis Acosta MD albuterol sulfate 1.25 mg (3 mL) inhalation Q4H 1 month albuterol sulfate 90 mcg/actuation (Ventolin HFA) 2 puffs inhalation Q4-6H PRN amoxicillin-pot clavulanate 875-125 mg 1 tab PO BID atorvastatin 40 mg PO BEDTIME 90 days blood pressure kit-extra large As directed buspirone 10 mg PO BID docusate sodium (Colace) 200 mg (2 x 100 mg) PO BEDTIME fluoxetine 20 mg PO DAILY hydrochlorothiazide 12.5 mg PO DAILY 90 days ibuprofen 600 mg PO Q6H PRN loratadine 10 mg PO DAILY lorazepam mg PO PRN melatonin 3 mg PO BEDTIME miscellaneous medical supply air purifier for personal use as directed; oxycodone 5 mg PO Q6H PRN 1 week pantoprazole 20 mg PO BID trazodone 50 mg PO BEDTIME umeclidinium-vilanterol 62.5-25 mcg/actuation (Anoro Ellipta) 1 inh inhalation DAILY 30 days ziprasidone HCl 20 mg PO BID HPI Comments Details: 53 yr old man with obesity referred for microalbuminuria and renal cyst [place]oved [place] about 3 years ago and has gained 40 lbs since Does not exercise h/o Smoking from age 19 to 46 04/02/24 He stopped taking Amlodipine due to headache 06/04/24 stopped antihypertensives because he ran out !! Interim Controller Service was used [facility] Medical History Breast mass, left Breast mass, right Cyst of right breast Chronic constipation Bilateral leg cramps Sore throat Rib fractures Tachycardia Impacted cerumen, left ear Low back strain Morbid obesity Pre-op evaluation Elevated blood pressure reading Infected tooth Normal physical exam Asthma, mild intermittent, poorly controlled Poor historian Asthma attacks lasting more than 24 hours Left upper quadrant abdominal pain Asthma Surgical History Umbilical hernia, incarcerated (12/12/23) Subareolar mass of left breast History of excision of mass (07/31/23) History of surgery on arm Hx of cholecystectomy Family History Other Substance abuse Social History Household Members: Family Housing: House 75 years or older and lives alone: No Alcohol intake: never Patient Tobacco Use Status: Former Tobacco user Tobacco use type: Cigarette e-Cigarette/Vaping Use: Never Used Second Hand Smoke Exposure: No service: No Current occupational status: employed and unemployed Current occupation: works nights Current occupational exposures/hazards: No Gender identity: Male Cognitive needs: No Hearing needs: Yes Vision needs: Yes Physical Exam Vital Signs: Last Vital Signs Pulse 80 06/04/24 09:22 BP 150/100 H 06/04/24 09:22 Pulse Ox 94 06/04/24 09:22 Oxygen Delivery Method Room Air 06/04/24 09:22 Results Reviewed Nephrology Results: Hgb 14.6 g/dl (14.0-18.0) 05/06/24 WBC 8.5 X10*3/uL (4.8-10.8) 05/06/24 Plt Count 329 X10*3/uL (160-400) 05/06/24 Sodium 139 mmol/L (135-145) 05/06/24 Potassium 4.4 mmol/L (3.3-5.1) 05/06/24 Chloride 103 mmol/L (96-108) 05/06/24 Carbon Dioxide 30 mmol/L (22-29) H 05/06/24 BUN 13 mg/dL (9-16) 05/06/24 Creatinine 0.90 mg/dL (0.5-1.4) 05/06/24 Calcium 9.7 mg/dL (8.4-10.2) 05/06/24 Urine Protein Trace mg/dL (Neg-Trace) 05/06/24 Assessment & Plan Assessment & Plan (1) Microalbuminuria: Comment: Most likely due to Obesity/HTN Code(s): R80.9 - Proteinuria, unspecified Category: Medical Plan: He needs weight loss He will benefit from KAYLYN inhibitor or ARB for renal protection. Maintain blood pressure less than 130/80. Added Valsartan (2) Renal cyst: Code(s): N28.1 - Cyst of kidney, acquired Category: Medical Plan: CT scan done in 2022 revealed renal cyst. Follow renal ultrasonogram shows septic cyst on both kidneys and a repeat CT scan has been recommended. Repeat CT scan. shows simple cyst (3) Hypertension: Comment: goal <130/80 Code(s): I10 - Essential (primary) hypertension Category: Medical Qualifiers: Hypertension type: primary hypertension Qualified Code(s): I10 - Essential (primary) hypertension Plan: ADD VALSARTAN HCT 80/12.5 DAILY Orders: Orders Basic Metabolic Panel 3 Months I10 - Essential (primary) hypertension, R80.9 - Proteinuria, unspecified Medications: New valsartan-hydrochlorothiazide 80-12.5 mg 1 tab PO DAILY 90 tabs 0RF Discontinued hydrochlorothiazide Discontinued Reason: Doctor's Order 12.5 mg PO DAILY 90 days 90 tabs 1RF I10 - Essential (primary) hypertension Coding Level of Care Code Est Pt Level 4 (19505) Diagnoses Microalbuminuria R80.9 Renal cyst N28.1 Primary hypertension I10 Hypertension type: primary hypertension
== END 2024-06-04 09:42 | disposition home or self-care (01) ==
PROVIDERS: Visit Provider Internal Medicine Hypertension Specialist
DX: R80.9 Proteinuria, unspecified (principal); N28.1 Cyst of kidney, acquired; I10 Essential (primary) hypertension
CPT/HCPCS: 99214

== ENCOUNTER → 2024-06-04 09:06 | Outpatient (BNVA) | payer OTHER, SELFPAY | PROVIDERS: Visit Provider Internal Medicine Hypertension Specialist | DX: Z47.89 Encounter for other orthopedic aftercare (principal); M25.562 Pain in left knee; G89.29 Other chronic pain; R80.9 Proteinuria, unspecified; N28.1 Cyst of kidney, acquired; I10 Essential (primary) hypertension | CPT/HCPCS: 99212 ==

== ENCOUNTER 2024-06-04 13:02 | Outpatient (AMB) | payer OTHER, SELFPAY ==
--- NOTE | 2024-06-04 13:04 | A.OFFVIS_ITS ---
Vital Signs 06/04/24 13:13 Height 5 ft 3 in Weight 266 lb BMI 47.1 Intake Visit Reasons: PO LT knee 05/22/24 DR Albert Note: Socrates is a 53 year old male who presents today post operatively S/P Left knee w/ Dr Luevano DOS: 05/22/24. He reports mild to moderate discomfort in his left knee. He denies any fevers or chills. Does take oxycodone which gives him fairly good relief. Coordinator Of Health Services Required: Yes Coordinator Of Health Services Language: Travel Journalist Name: Wilfredo [id number] Allergies lisinopril Adverse Reaction (Verified 06/04/24 09:25) Cough, headache Medication List - Last Reconciled 06/04/24 by Wil Luevano MD albuterol sulfate 1.25 mg (3 mL) inhalation Q4H 1 month albuterol sulfate 90 mcg/actuation (Ventolin HFA) 2 puffs inhalation Q4-6H PRN amoxicillin-pot clavulanate 875-125 mg 1 tab PO BID atorvastatin 40 mg PO BEDTIME 90 days blood pressure kit-extra large As directed buspirone 10 mg PO BID docusate sodium (Colace) 200 mg (2 x 100 mg) PO BEDTIME fluoxetine 20 mg PO DAILY ibuprofen 600 mg PO Q6H PRN loratadine 10 mg PO DAILY lorazepam mg PO PRN melatonin 3 mg PO BEDTIME miscellaneous medical supply air purifier for personal use as directed; oxycodone 5 mg PO Q8H PRN pantoprazole 20 mg PO BID trazodone 50 mg PO BEDTIME umeclidinium-vilanterol 62.5-25 mcg/actuation (Anoro Ellipta) 1 inh inhalation DAILY 30 days valsartan-hydrochlorothiazide 80-12.5 mg 1 tab PO DAILY ziprasidone HCl 20 mg PO BID PFSH Medical History Breast mass, left Breast mass, right Cyst of right breast Chronic constipation Bilateral leg cramps Sore throat Rib fractures Tachycardia Impacted cerumen, left ear Low back strain Morbid obesity Pre-op evaluation Elevated blood pressure reading Infected tooth Normal physical exam Asthma, mild intermittent, poorly controlled Poor historian Asthma attacks lasting more than 24 hours Left upper quadrant abdominal pain Asthma Surgical History Umbilical hernia, incarcerated (12/12/23) Subareolar mass of left breast History of excision of mass (07/31/23) History of surgery on arm Hx of cholecystectomy Family History Other Substance abuse Social History Household Members: Family Housing: House 75 years or older and lives alone: No Alcohol intake: never Patient Tobacco Use Status: Former Tobacco user Tobacco use type: Cigarette e-Cigarette/Vaping Use: Never Used Second Hand Smoke Exposure: No service: No Current occupational status: employed and unemployed Current occupation: works nights Current occupational exposures/hazards: No Gender identity: Male Cognitive needs: No Hearing needs: Yes Vision needs: Yes Physical Exam Vital Signs: BMI result Body Mass Index 47.1 Extrem Other: Left knee examination shows that the surgical incisions are healing well, no erythema, minimal discomfort with range of motion, no instability Assessment & Plan Assessment & Plan (1) Left knee pain: Comment: refer to ortho for eval and tx Code(s): M25.562 - Pain in left knee Category: Medical Qualifiers: Chronicity: chronic Qualified Code(s): M25.562 - Pain in left knee; G89.29 - Other chronic pain Plan Mr. Devaughn Parry is doing well after undergoing left knee arthroscopic surgery on 05/22/2024. His sutures were removed and Steri-Strips placed over his incisions. I did refill his prescription for oxycodone. He does not wish to go to formal physical therapy. He will contact me prior to his follow-up appointment in 6 weeks should any questions or concerns arise. Feel free to call me at any time should questions regarding his orthopedic management arise. Medications: Changed From oxycodone Partial Fill upon patient request. 5 mg PO Q6H 1 week PRN 20 tabs 0RF pain To oxycodone Partial Fill upon patient request. 5 mg PO Q8H PRN 20 tabs 0RF pain Coding Level of Care Code Global (81406) Diagnoses Chronic pain of left knee M25.562; G89.29 Chronicity: chronic
[2024-06-04 13:13] VITALS: BMI 47.1
== END 2024-06-04 13:25 | disposition home or self-care (01) ==
PROVIDERS: PCP Nurse Practitioner Family; Visit Provider Orthopaedic Surgery
DX: M25.562 Pain in left knee (principal); G89.29 Other chronic pain
CPT/HCPCS: 99024

== ENCOUNTER 2024-06-08 16:19 | Emergency (ER) | payer OTHER, SELFPAY ==
--- NOTE | ~2024-06-08 | XR_ITS ---
EXAMINATION: XR SHOULDER, RIGHT CLINICAL INFORMATION: Fall with pain and tenderness COMPARISON: Views of the shoulder on the 03/26/2024 chest x-ray TECHNIQUE: Four views of the right shoulder. FINDINGS: Humeral head is well-seated in the glenoid fossa. Mild degenerative changes seen with small osteophyte formation and a small amount of calcification in the expected region of the supraspinatus tendon. Degenerative changes in the acromioclavicular joint with chronic abnormal widening of the AC joint similar to the prior study suggesting either laxity or old AC injury. Visualized ribs and chest grossly unremarkable otherwise. XR/XR shoulder RT min 2V IMPRESSION: Chronic appearing and degenerative changes to the shoulder. No acute fracture or dislocation. Similar abnormal widening to the acromioclavicular joint seen on the 03/26/2024 chest x-ray Electronically signed by: Bryan Carlisle MD 06/08/2024 08:25 PM EDT
[2024-06-08 16:34] VITALS: BP 139/72; PULSE 99; RESP 18; TEMP 36.7; O2SAT 95; BMI 46.1
--- NOTE | 2024-06-08 16:34 | ED.GENADULT ---
HPI - General Adult General Chief complaint: Extremity Injury, Upper Stated complaint: pulled muscle R arm Time Seen by Provider: 06/08/24 19:29 History of Present Illness ED Provider: Ian ANN narrative: The patient is a 53-year-old male who says that he injured his right upper arm when he was trying to change a very large tire on a truck. He says that his arm got thrown backwards when the tire fell over. He felt a ripping like pain in his upper arm. He had a lot of pain. He had an oxycodone from a recent orthopedic surgery. He took an oxycodone prior to coming to the emergency room. No numbness or tingling or loss of function of the right hand. No other injuries. The patient had left knee arthroscopic surgery about 2-1/2 weeks ago. The left knee arthroscopy with partial medial and lateral meniscectomies, left knee chondroplasty of the undersurface of the patella. The patient received a prescription for 20 tablets of oxycodone on . He was given another prescription for 20 tablets of oxycodone on 06/04. Related Data Home Medications ?Medication ?Instructions ?Recorded ?Confirmed fluoxetine 20 mg capsule 20 mg PO DAILY 03/05/24 06/04/24 lorazepam 0.5 mg tablet mg PO PRN 03/05/24 06/04/24 buspirone 10 mg tablet 10 mg PO BID 04/02/24 06/04/24 melatonin 3 mg tablet 3 mg PO BEDTIME 04/02/24 06/04/24 pantoprazole 20 mg tablet,delayed 20 mg PO BID 04/02/24 06/04/24 release trazodone 50 mg tablet 50 mg PO BEDTIME 04/02/24 06/04/24 ziprasidone HCl 20 mg capsule 20 mg PO BID 04/02/24 06/04/24 Previous Rx's ?Medication ?Instructions ?Recorded blood pressure kit-extra large #1 ea 11/20/22 miscellaneous medical supply See Rx Instructions miscellaneous 11/20/22 .COMPLEX #1 ea umeclidinium 62.5 mcg-vilanterol 1 inh inhalation DAILY 30 days #1 02/27/23 25 mcg/actuation powdr for ea inhalation (Anoro Ellipta) atorvastatin 40 mg tablet 40 mg PO BEDTIME 90 days #90 tabs 01/30/24 docusate sodium 100 mg capsule 200 mg (2 x 100 mg) PO BEDTIME 01/30/24 (Colace) #180 caps loratadine 10 mg tablet 10 mg PO DAILY #90 tabs 01/30/24 albuterol sulfate 1.25 mg/3 mL 1.25 mg (3 mL) inhalation Q4H 1 02/05/24 solution for nebulization month #540 mL albuterol sulfate 90 mcg/actuation 2 puff inhalation Q4-6H PRN 02/05/24 aerosol inhaler (Ventolin HFA) shortness of breath or wheezing #8.5 grams ibuprofen 600 mg tablet 600 mg PO Q6H PRN fever or pain 03/27/24 #30 tabs amoxicillin 875 mg-potassium 1 tab PO BID #19 tabs 05/06/24 clavulanate 125 mg tablet oxycodone 5 mg tablet 5 mg PO Q8H PRN pain #20 tabs 06/04/24 valsartan 80 1 tab PO DAILY #90 tabs 06/04/24 mg-hydrochlorothiazide 12.5 mg tablet ibuprofen 600 mg tablet 600 mg PO Q6H PRN pain #14 tabs 06/08/24 oxycodone 5 mg tablet 5 mg PO Q6H PRN pain #10 tabs 06/08/24 Allergies Allergy/AdvReac Type Severity Reaction Status Date / Time lisinopril AdvReac Cough, Verified 06/08/24 16:35 headache Review of Systems Review of Systems: Yes all other systems are reviewed and are negative [facility] Past Medical History Medical History Breast mass, left Breast mass, right Cyst of right breast Chronic constipation Bilateral leg cramps Sore throat Rib fractures Tachycardia Impacted cerumen, left ear Low back strain Morbid obesity Pre-op evaluation Elevated blood pressure reading Infected tooth Normal physical exam Asthma, mild intermittent, poorly controlled Poor historian Asthma attacks lasting more than 24 hours Left upper quadrant abdominal pain Asthma Surgical History Umbilical hernia, incarcerated (12/12/23) Subareolar mass of left breast History of excision of mass (07/31/23) History of surgery on arm Hx of cholecystectomy Family History Family History Other Substance abuse Social History Social History Household Members: Family Housing: House Alcohol intake: never Patient Tobacco Use Status: Former Tobacco user Tobacco use type: Cigarette e-Cigarette/Vaping Use: Never Used Second Hand Smoke Exposure: No Advance Directives: No Advance Directives Information Provided: No Do you have a plan to hurt others: No Plan service: No Current occupational status: employed and unemployed Current occupation: works nights Current occupational exposures/hazards: No Gender identity: Male Cognitive needs: No Hearing needs: Yes Vision needs: Yes Physical Exam ED Vital Signs: Vital Signs - 24 hr 06/08/24 16:34 Temperature 98.1 F Pulse Rate 99 Respiratory Rate 18 Blood Pressure 139/72 Pulse Oximetry 95 Oxygen Delivery Method Room Air BMI result Body Mass Index 46.1 Const Other: The patient is a garcia 53-year-old man. His BMI is 46. He is awake and alert and says he is in a great deal of discomfort. HENMT Other: No sign of trauma to the face or head. Mucous membranes moist Eyes General: appearance normal, both eyes and all related structures Conjunctivae: conjunctivae normal EOM: EOMs intact bilaterally Neck Other: Moving his neck easily Resp Effort & Inspection: normal respiratory effort Auscultation: clear to auscultation bilaterally Cardio Rate: regular rate Rhythm: regular rhythm Heart sounds: S1 normal heart sound present and S2 normal heart sound present Skin Other: Skin is intact. No ecchymosis or other skin manifestations. Neuro Other: The patient is awake and alert with a normal mental status. He has normal strength and sensation in the right hand. Extrem Other: The patient seems to have a lot of tenderness along the anterior aspect of the right upper arm near the shoulder and at the anterior shoulder itself. I do not appreciate any definite deformity to the biceps or the biceps tendon however. Course Course Course Narrative: This is a Rapid Medical Examination (RME) performed by Doretha Solis PA-C in triage. Full HPI, ROS, assessment and treatment plan per primary provider in the Main ED. 53 yo male w/ hx of asthma, HTN, HDL here for eval of atraumatic right shoulder pain x2 hours. reports while changing a truck tire he moved his RUE in an odd way, causing pain to the outer left shoulder. no hx of similar. no blunt trauma or injury. 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 +ttp along right rotator cuff, limited abduction of right shoulder d/t pain, 2+radial/ ulnar pulse Plan: pain control Medications Administered Discontinued Medications Generic Name Dose Route Start Last Admin Trade Name Freq PRN Reason Stop Dose Admin Ketorolac Tromethamine 30 mg 06/08/24 19:42 06/08/24 20:00 Ketorolac Tromethamine 30 Mg/Ml Vial IM 06/08/24 19:43 30 mg ONCE ONE Administration Medical Decision Making Medical Decision Making MDM Narrative: Old male who injured his right upper arm and shoulder while trying to change a large tire off a truck. He describes a ripping type sensation to his right upper arm near the shoulder. Clinically his pain seems to be in the region of the head of the biceps. Exam is difficult because of pain. I do not appreciate any definite deformity that would be very diagnostic of a biceps tendon rupture. Nevertheless this is certainly a possibility. An x-ray of the right shoulder shows some chronic degenerative changes but no acute findings. The patient was given 30 mg of IM ketorolac for pain. He was given a sling. He should follow up with Orthopedics for further evaluation of what might be a biceps tendon rupture. Discharge Plan Discharge Clinical Impression: Strain of right biceps brachii muscle or tendon Patient Disposition: Home, Self-Care Additional Instructions: I suspect that you have injured your right biceps muscle. Please wear the sling to rest your arm. Please contact the orthopedic office in the morning for a follow up appointment so that they can evaluate you was well. In the meantime you may use ice to the painful part of your arm for 10-15 minutes at a time several times a day. Take 2 extra-strength acetaminophen (Tylenol) every 8 hours. Take 600 mg of ibuprofen every 6 hours as needed. I have sent a prescription for this medication to your pharmacy. If necessary you may also use the oxycodone prescribed. Try to use this very little. In addition to following up with your orthopedist also follow up with your regular doctor. Return to the emergency room if significantly worse or if you develop new symptoms. Prescriptions: New oxycodone 5 mg tablet 5 mg PO Q6H PRN (Reason: pain) Qty: 10 0RF Rx Instructions: Partial Fill upon patient request. ibuprofen 600 mg tablet 600 mg PO Q6H PRN (Reason: pain) Qty: 14 0RF No Action Anoro Ellipta 62.5-25 mcg/actuation blister with device 1 inh inhalation DAILY 30 Days Qty: 1 6RF albuterol sulfate [Ventolin HFA] 90 mcg/actuation HFA aerosol inhaler 2 puff inhalation Q4-6H PRN (Reason: shortness of breath or wheezing) Qty: 8.5 1RF albuterol sulfate 1.25 mg/3 mL solution for nebulization 1.25 mg inhalation Q4H 30 Days Qty: 540 1RF amoxicillin-pot clavulanate 875-125 mg tablet 1 tab PO BID Qty: 19 0RF ibuprofen 600 mg tablet 600 mg PO Q6H PRN (Reason: fever or pain) Qty: 30 0RF atorvastatin 40 mg tablet 40 mg PO BEDTIME 90 Days Qty: 90 1RF docusate sodium [Colace] 100 mg capsule 200 mg PO BEDTIME Qty: 180 2RF loratadine 10 mg tablet 10 mg PO DAILY Qty: 90 0RF (DME) blood pressure kit-extra large Kit See Rx Instructions .Route Qty: 1 0RF Rx Instructions: As directed [facility] See Rx Instructions miscellaneous .COMPLEX Qty: 1 0RF Rx Instructions: air purifier for personal use as directed; ziprasidone HCl 20 mg capsule 20 mg PO BID buspirone 10 mg tablet 10 mg PO BID pantoprazole 20 mg tablet,delayed release (DR/EC) 20 mg PO BID trazodone 50 mg tablet 50 mg PO BEDTIME melatonin 3 mg tablet 3 mg PO BEDTIME lorazepam 0.5 mg tablet PO PRN fluoxetine 20 mg capsule 20 mg PO DAILY valsartan-hydrochlorothiazide 80-12.5 mg tablet 1 tab PO DAILY Qty: 90 0RF oxycodone 5 mg tablet 5 mg PO Q8H PRN (Reason: pain) Qty: 20 0RF Rx Instructions: Partial Fill upon patient request. Referrals: [facility] [Provider Group] (Right biceps injury) Print Language: Armenian
[2024-06-08] MEDS: Ketorolac Tromethamine 30 MG/ML VIAL IM (20:00)
--- NOTE | 2024-06-08 20:02 | PC.NURSE ---
pt medicated per dec for 10/10 right shoulder pain.
[2024-06-08 20:56] VITALS: BP 161/79; PULSE 88; RESP 17; TEMP 37.2; O2SAT 93
[2024-06-08 20:57] VITALS: BP 161/79; PULSE 88; RESP 17; TEMP 37.2; O2SAT 93
== END 2024-06-08 20:57 | disposition home or self-care (01) ==
PROVIDERS: Emergency Provider Emergency Medicine
DX: S46.211A Strain of muscle, fascia and tendon of other parts of biceps, right arm, initial encounter (principal); X58.XXXA Exposure to other specified factors, initial encounter; Y93.89 Activity, other specified; Y92.9 Unspecified place or not applicable; Y99.9 Unspecified external cause status; M79.621 Pain in right upper arm; Z79.899 Other long term (current) drug therapy
CPT/HCPCS: 73030; 96372; 99284; J1885

== ENCOUNTER 2024-06-25 14:17 | Outpatient (AMB) | payer OTHER, SELFPAY ==
--- NOTE | 2024-06-25 14:37 | MHC.OFFVIS ---
Vital Signs 06/25/24 14:44 Height 5 ft 3 in Weight 260 lb BMI 46.1 Intake Visit Reasons: New prob- ED f/u RT biceps strain Intake Note: Tristan 53 year old male who presents today for an ER follow up of right upper arm, DOI 06/08/24. Patient reports he injured his right upper arm when he was trying to change a very large tire on a truck. He presented to [facility] ER and was referred to orthopedics. Currently his pain has improved however he has pain with use of his arm. His pain is located in his bicep area and feels hard to the touch. 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 He reports he was trying to change a very large tire on a truck and sustained an injury to his right arm. He was seen at ER where he was referred to our office. He currently states he has pain in his bicep area that comes with use of his arm. He also reports his bicep feels hard to touch. [facility] Medical History Breast mass, left Breast mass, right Cyst of right breast Chronic constipation Bilateral leg cramps Sore throat Rib fractures Tachycardia Impacted cerumen, left ear Low back strain Morbid obesity Pre-op evaluation Elevated blood pressure reading Infected tooth Normal physical exam Asthma, mild intermittent, poorly controlled Poor historian Asthma attacks lasting more than 24 hours Left upper quadrant abdominal pain Asthma Surgical History Umbilical hernia, incarcerated (12/12/23) Subareolar mass of left breast History of excision of mass (07/31/23) History of surgery on arm Hx of cholecystectomy Family History Other Substance abuse Social History Household Members: Family Housing: House 75 years or older and lives alone: No Alcohol intake: never Patient Tobacco Use Status: Former Tobacco user Tobacco use type: Cigarette e-Cigarette/Vaping Use: Never Used Second Hand Smoke Exposure: No service: No Current occupational status: employed and unemployed Current occupation: works nights Current occupational exposures/hazards: No Gender identity: Male Cognitive needs: No Hearing needs: Yes Vision needs: Yes Review of Systems Const All systems reviewed & are unremarkable except as noted in HPI and below Physical Exam Vital Signs: BMI result Body Mass Index 46.1 Extrem Other: Right shoulder: Normal to inspection. He does have a soft tissue defect at the proximal humerus hum with a notable bulge at muscle belly of the bicep. Distal bicep is intact without defect. No pain with supination or pronation. No pain with flexion or extension at the elbow. NVI. Assessment & Plan Assessment & Plan (1) Biceps tendon rupture, proximal: Code(s): S46.119A - Strain of muscle, fascia and tendon of long head of biceps, unspecified arm, initial encounter Category: Medical Plan I did explain the extent of his injury in detail. I also explain that opting for nonoperative treatment would mean he should reach full function with physical therapy which I did place an order for in the office today. If symptoms persist or worsen, patient will contact the office, otherwise follow-up as needed. Orders: Orders PT Evaluation and Treatment Today S46.119A - Strain of muscle, fascia and tendon of long head of biceps, unspecified arm, initial encounter Patient Instructions: Scribed for Eliza Will PA-C, by Evelio [place] medical records clerk, on 06/25/2024 at 3:00 PM EST.? I, Eliza Will PA-C, have personally reviewed and agree with the information entered by the scribe. Coding Level of Care Code New Pt Level 3 (38930) Complex EM visit Add On G2211 Diagnoses Biceps tendon rupture, proximal S46.119A
[2024-06-25 14:44] VITALS: BMI 46.1
== END 2024-06-25 15:02 | disposition home or self-care (01) ==
PROVIDERS: Visit Provider Physician Assistant
DX: S46.111A Strain of muscle, fascia and tendon of long head of biceps, right arm, initial encounter (principal)
CPT/HCPCS: 99203; G2211

== ENCOUNTER → 2024-06-25 14:17 | Outpatient (BNVA) | payer OTHER, SELFPAY | PROVIDERS: Visit Provider Physician Assistant | DX: S46.111A Strain of muscle, fascia and tendon of long head of biceps, right arm, initial encounter (principal); X50.0XXA Overexertion from strenuous movement or load, initial encounter; Y93.89 Activity, other specified; Y92.59 Other trade areas as the place of occurrence of the external cause; Y99.8 Other external cause status | CPT/HCPCS: 99202 ==

== ENCOUNTER 2024-07-13 12:02 | Outpatient (AMB) | payer OTHER, SELFPAY ==
--- NOTE | 2024-07-13 12:46 | MHC.PC.OV ---
Vital Signs 07/13/24 12:53 07/13/24 13:24 Height 5 ft 3 in Weight 261 lb 6 oz BMI 46.3 BP 148/88 H 148/90 H Blood Pressure Location Rt brachial Lt brachial Position Sitting Sitting Respiration 15 Pulse 91 Pulse Source Pulse Oximeter Pulse Oximetry (%) 94 Oxygen Delivery Method Room Air Intake Visit Reasons: 6 months,30 min, HTN, HLD, Obesity Intake Note: Follow up on hypertension and needs refill on meds. Patient also complaining of tongue pain. Patient stopped his high blood pressure medicine because he was still having headaches. Allergies lisinopril Adverse Reaction (Verified 07/13/24 13:07) Cough, headache Medication List - Last Reconciled 07/13/24 by Sravani Ledesma, FARM EQUIPMENT ENGINEER- albuterol sulfate 1.25 mg (3 mL) inhalation Q4H 1 month albuterol sulfate 90 mcg/actuation (Ventolin HFA) 2 puffs inhalation Q4-6H PRN atorvastatin 40 mg PO BEDTIME 90 days blood pressure kit-extra large As directed buspirone 10 mg PO BID docusate sodium (Colace) 200 mg (2 x 100 mg) PO BEDTIME fluoxetine 20 mg PO DAILY ibuprofen 600 mg PO Q6H PRN loratadine 10 mg PO DAILY lorazepam mg PO PRN melatonin 3 mg PO BEDTIME miscellaneous medical supply air purifier for personal use as directed; pantoprazole 20 mg PO BID trazodone 50 mg PO BEDTIME umeclidinium-vilanterol 62.5-25 mcg/actuation (Anoro Ellipta) 1 inh inhalation DAILY 30 days valsartan-hydrochlorothiazide 80-12.5 mg 1 tab PO DAILY ziprasidone HCl 20 mg PO BID Tobacco use date assessed: 01/30/24 Dental Screening Dental Screen Date: 01/30/24 HPI HPI Comments History of Present Illness Details 54-year-old [place]ian-speaking male with hypertension, COPD, GERD, hyperlipidemia, obesity, bilat renal cysts (benign), fatty liver, bilat breast mass, right bicep tendon rupture 06/2024 s/p open incarcerated umbilical hernia w/mesh 12/2023, s/p Left knee arthroscopic surgery on 05/22/2024 Health Maintenance: Colonoscopy referred Vaccines - Tdap 2023 [facility] General surgery [facility] Ortho Services Coordinator [phone] Here today for routine fu. Since last office visit he did have consultation with Nephrology. These 2 consult notes were reviewed. It was indicated that Norvasc was causing headaches and therefore this was discontinued. He was done started on valsartan/hydrochlorothiazide. Patient's blood pressure is noted to be elevated today. He states that he was not taking the valsartan hydrochlorothiazide as this was also causing headaches. He stopped taking this 1 month ago. He did now alert any of the healthcare team members. He does not be cord is blood pressure at home. He reports that his headaches are greatly improved since stopping. He does occasionally continue to get headaches, worse upon awakening however they are not as bad as they were when he was taking the blood pressure medication. He denies any syncope or collapse. He was referred for an eye exam however this was scheduled in [place], this was too far for him. Would like a new referral to an eye doctor that is closer to him. To treat his headaches that he gets he states that he splashed with his face with water, lies down and takes a nap and has complete recovery. He has never seen a neurologist and he has never had a sleep study. He reports hypersomnolence and snoring. Today he asked me about a prescription for dandruff shampoo. Reports that his scalp is chronically itchy with dandruff. Final he states that he did not get appointment for his colonoscopy. I was able to review the chart, a referral was placed at his previous visit, it looks like he has a appointment scheduled 09/29/24 at 230pm, info provided to him today. Exam: Awake alert, NAD MMM RRR LS CTAB, dim throughout No edema BLE Mood and affect appropriate Plan: As patient was not taking his blood pressure medication we will discontinue the valsartan hydrochlorothiazide. We will start propranolol ER 60 mg q.h.s. the goal will be to help control his blood pressure as well as his daily headaches. I would like for him to follow up with the nurse navigator in 2 weeks for a blood pressure recheck. I would also like to check a sleep study on him given his complaints of waking with headaches, hypersomnolence story. Refer to [facility] the eye exam given complaints of headache and blurred vision. To treat his dandruff we will send in a prescription for salicylic acid 3% shampoo when application topically 2 times per week as needed. If this is not a covered by his insurance we will need to buy this [id number]. Offered and declined a flu vaccine today hold like to see him back for routine follow up in about 8 weeks to discuss his sleep study results as well as to follow up on his hypertension. If his blood pressure is uncontrolled at 2 weeks at the nurse visit, I will need to see him sooner. Would like fasting labs to be completed 1 week before his next appt w/ me. Otherwise he should continue to take all of his medications as prescribed. This note is constructed using voice recognition software. While every effort has been made to ensure accuracy in asbestos siding installer, still errors may have been included Sometimes, these errors may affect the content or meaning of the given sentence . Total time spent caring for the patient today was 45 minutes. This includes time spent before the visit reviewing the chart, time spent during the visit, and time spent after the visit on documentation [facility] Medical History Breast mass, left Breast mass, right Cyst of right breast Chronic constipation Bilateral leg cramps Sore throat Rib fractures Tachycardia Impacted cerumen, left ear Low back strain Morbid obesity Pre-op evaluation Elevated blood pressure reading Infected tooth Normal physical exam Asthma, mild intermittent, poorly controlled Poor historian Asthma attacks lasting more than 24 hours Left upper quadrant abdominal pain Asthma Surgical History Umbilical hernia, incarcerated (12/12/23) Subareolar mass of left breast History of excision of mass (07/31/23) History of surgery on arm Hx of cholecystectomy Family History Other Substance abuse Social History Household Members: Family Housing: House 75 years or older and lives alone: No Alcohol intake: never Patient Tobacco Use Status: Former Tobacco user Tobacco use type: Cigarette e-Cigarette/Vaping Use: Never Used Second Hand Smoke Exposure: No service: No Current occupational status: employed and unemployed Current occupation: works nights Current occupational exposures/hazards: No Gender identity: Male Cognitive needs: No Hearing needs: Yes Vision needs: Yes Questionnaire Thrive Questionnaire Date Thrive assessed: 01/30/24 AUDIT C Alcohol Use Questionnaire (AUDIT-C) 1. How often do you have a drink containing alcohol?: Never 3. How often do you have six or more drinks on one occasion?: Never Total Score: 0 DENISHA-7 AMB Questionnaire DENISHA-7 Date DENISHA - 7 assessed: 01/30/24 Source: Developed by Drs. Amauri Pandya, Roselyn Jeong, Nigel Posada and colleagues, with an educational beatrice from [employer]. ACT Questionnaire In the past 4 weeks, how much of the time did your asthma keep you from getting as much done at work, school or at home?: Most of the time During the past 4 weeks, how often have you had shortness of breath?: More than once a day During the past 4 weeks, how often did your asthma symptoms wake you up at night or earlier than usual in the morning?: 4 or more nights a week During the past 4 weeks, how often have you had to use your rescue inhaler or nebulizer medication?: More than 3 times per day How would you rate your asthma control during the past 4 weeks?: Not controlled at all (feels short of breath) Score: 6 Physical exam (Primary Care) Vital Signs: Last Vital Signs Pulse 91 07/13/24 12:53 Resp 15 07/13/24 12:53 BP 148/90 H 07/13/24 13:24 Pulse Ox 94 07/13/24 12:53 Oxygen Delivery Method Room Air 07/13/24 12:53 BMI result Body Mass Index 46.3 Tobacco/Smoking Status: Tobacco use Status Tobacco use date assessed 01/30/24 07/13/24 12:47 Patient Tobacco Use Status Former Tobacco user 07/13/24 12:47 Tobacco use type Cigarette 07/13/24 12:47 e-Cigarette/Vaping Use Never Used 07/13/24 12:47 Thrive Assessment: Date of Thrive Assessment Date Thrive assessed 01/30/24 07/13/24 12:47 Coding Level of Care Code Est Pt Level 5 (70769) Complex EM visit Add On G2211 Diagnoses Primary hypertension I10 Hypertension type: primary hypertension Morbid obesity with BMI of 45.0-49.9, adult E66.01; Z68.42 Chronic daily headache R51.9 Blurred vision H53.8 Screen for colon cancer Z12.11 Dandruff in adult L21.0 Influenza vaccination declined Z28.21 Medically noncompliant Z91.199 High cholesterol E78.00 Prediabetes R73.03 Microalbuminuria R80.9 Assessment & Plan Assessment & Plan (1) Hypertension: Comment: goal <130/80 Code(s): I10 - Essential (primary) hypertension Category: Medical Qualifiers: Hypertension type: primary hypertension Qualified Code(s): I10 - Essential (primary) hypertension Plan: . (2) Morbid obesity with BMI of 45.0-49.9, adult: Comment: BMI > 35 WITH HTN AND HLD Refer to Bariatric surgery Code(s): E66.01 - Morbid (severe) obesity due to excess calories; Z68.42 - Body mass index [BMI] 45.0-49.9, adult Category: Medical Plan: . (3) Chronic daily headache: Code(s): R51.9 - Headache, unspecified Category: Medical Plan: . (4) Blurred vision: Comment: refer for eye exam Code(s): H53.8 - Other visual disturbances Category: Medical (5) Screen for colon cancer: Comment: refer to gi for first screening colon Code(s): Z12.11 - Encounter for screening for malignant neoplasm of colon Category: Medical Plan: . (6) Dandruff in adult: Code(s): L21.0 - Seborrhea capitis Category: Medical Plan: . (7) Influenza vaccination declined: Code(s): Z28.21 - Immunization not carried out because of patient refusal Category: Medical Plan: . (8) Medically noncompliant: Code(s): Z91.199 - Patient's noncompliance with other medical treatment and regimen due to unspecified reason Category: Medical Plan: NN to help along w/ edu provided at each office visit (9) High cholesterol: Comment: LDL goal < 70 was on atorvastatin 40mg QD but has been w/o restart and monitor labs Code(s): E78.00 - Pure hypercholesterolemia, unspecified Category: Medical (10) Prediabetes: Comment: hga1c 6.2% today referred to bariatric clinic for wt mgmt Code(s): R73.03 - Prediabetes Category: Medical (11) Microalbuminuria: Comment: Most likely due to Obesity/HTN Code(s): R80.9 - Proteinuria, unspecified Category: Medical Plan . Orders: Orders Microalbumin, Random (w Creat) Today E78.00 - Pure hypercholesterolemia, unspecified, I10 - Essential (primary) hypertension, K76.0 - Fatty (change of) liver, not elsewhere classified, R73.03 - Prediabetes, R80.9 - Proteinuria, unspecified Comprehensive Wells. Panel Fast Today E78.00 - Pure hypercholesterolemia, unspecified, I10 - Essential (primary) hypertension, K76.0 - Fatty (change of) liver, not elsewhere classified, R73.03 - Prediabetes, R80.9 - Proteinuria, unspecified Hemoglobin A1c Today E78.00 - Pure hypercholesterolemia, unspecified, I10 - Essential (primary) hypertension, K76.0 - Fatty (change of) liver, not elsewhere classified, R73.03 - Prediabetes, R80.9 - Proteinuria, unspecified RT home sleep study 07/13/24 E66.01 - Morbid (severe) obesity due to excess calories, I10 - Essential (primary) hypertension, R40.0 - Somnolence, R51.9 - Headache, unspecified, Z68.42 - Body mass index [BMI] 45.0-49.9, adult Lipid Panel Today E78.00 - Pure hypercholesterolemia, unspecified, I10 - Essential (primary) hypertension, K76.0 - Fatty (change of) liver, not elsewhere classified, R73.03 - Prediabetes, R80.9 - Proteinuria, unspecified Referrals Ophthalmology Referral H53.8 - Other visual disturbances Medications: New salicylic acid 3% (Selsun Blue (salicylic acid)) leave on for 8 to14 hrs before washing off 1 appl topical 2XW PRN 325 mL 12RF itching pantoprazole 20 mg PO BID 60 tabs 2RF albuterol sulfate 90 mcg/actuation 2 inhalations inhalation Q6H PRN 1 ea 0RF shortness of breath or wheezing propranolol ER 60 mg PO BEDTIME 30 caps 0RF Discontinued albuterol sulfate 90 mcg/actuation (Ventolin HFA) Discontinued Reason: Duplicate 2 puffs inhalation Q4-6H PRN 8.5 grams 1RF shortness of breath or wheezing J45.20 - Mild intermittent asthma, uncomplicated valsartan-hydrochlorothiazide 80-12.5 mg Discontinued Reason: Patient no longer taking 1 tab PO DAILY 90 tabs 0RF
[2024-07-13 12:53] VITALS: BP 148/88; PULSE 91; RESP 15; O2SAT 94; BMI 46.3
[2024-07-13 13:24] VITALS: BP 148/90
== END 2024-07-13 13:36 | disposition home or self-care (01) ==
PROVIDERS: Visit Provider Nurse Practitioner Family
DX: I10 Essential (primary) hypertension (principal); E66.01 Morbid (severe) obesity due to excess calories; Z68.42 Body mass index [BMI] 45.0-49.9, adult; R51.9 Headache, unspecified; H53.8 Other visual disturbances; Z12.11 Encounter for screening for malignant neoplasm of colon; L21.0 Seborrhea capitis; Z28.21 Immunization not carried out because of patient refusal; Z91.199 Patient's noncompliance with other medical treatment and regimen due to unspecified reason; E78.00 Pure hypercholesterolemia, unspecified; R73.03 Prediabetes; R80.9 Proteinuria, unspecified

== ENCOUNTER → 2024-07-13 12:02 | Outpatient (BNVA) | payer OTHER, SELFPAY | PROVIDERS: Visit Provider Nurse Practitioner Family | DX: I10 Essential (primary) hypertension (principal); E66.01 Morbid (severe) obesity due to excess calories; Z68.42 Body mass index [BMI] 45.0-49.9, adult; H53.8 Other visual disturbances; L21.0 Seborrhea capitis; E78.00 Pure hypercholesterolemia, unspecified; R73.03 Prediabetes; R80.9 Proteinuria, unspecified; Z91.199 Patient's noncompliance with other medical treatment and regimen due to unspecified reason | CPT/HCPCS: 99212 ==

== ENCOUNTER 2024-07-22 12:37 | Outpatient (AMB) | payer OTHER, SELFPAY ==
[2024-07-22 12:39] VITALS: BMI 46.2
--- NOTE | 2024-07-22 12:39 | A.OFFVIS_ITS ---
Vital Signs 07/22/24 12:39 Height 5 ft 3 in Weight 261 lb BMI 46.2 Intake Visit Reasons: PO LT knee 05/22/24 Intake Note: Socrates is a 54 year old male who presents with complaints of mild to moderate discomfort in his left knee after undergoing left knee arthroscopic surgery on May 12. He denies any fevers or chills. He continues with his home exercise program. Mathematical Sciences Professor Required: Yes Mathematical Sciences Professor Language: Ship Keeper Name: Fermin [id number] Allergies lisinopril Adverse Reaction (Verified 07/22/24 12:41) Cough, headache Medication List - Last Reconciled 07/22/24 by Wil Luevano MD albuterol sulfate 1.25 mg (3 mL) inhalation Q4H 1 month albuterol sulfate 90 mcg/actuation 2 inhalations inhalation Q6H PRN atorvastatin 40 mg PO BEDTIME 90 days blood pressure kit-extra large As directed buspirone 10 mg PO BID docusate sodium (Colace) 200 mg (2 x 100 mg) PO BEDTIME fluoxetine 20 mg PO DAILY ibuprofen 600 mg PO Q6H PRN loratadine 10 mg PO DAILY lorazepam mg PO PRN melatonin 3 mg PO BEDTIME miscellaneous medical supply air purifier for personal use as directed; pantoprazole 20 mg PO BID propranolol ER 60 mg PO BEDTIME salicylic acid 3% (Selsun Blue (salicylic acid)) 1 appl topical 2XW PRN trazodone 50 mg PO BEDTIME umeclidinium-vilanterol 62.5-25 mcg/actuation (Anoro Ellipta) 1 inh inhalation DAILY 30 days ziprasidone HCl 20 mg PO BID PFSH Medical History Breast mass, left Breast mass, right Cyst of right breast Chronic constipation Bilateral leg cramps Sore throat Rib fractures Tachycardia Impacted cerumen, left ear Low back strain Morbid obesity Pre-op evaluation Elevated blood pressure reading Infected tooth Normal physical exam Asthma, mild intermittent, poorly controlled Poor historian Asthma attacks lasting more than 24 hours Left upper quadrant abdominal pain Asthma Surgical History Umbilical hernia, incarcerated (12/12/23) Subareolar mass of left breast History of excision of mass (07/31/23) History of surgery on arm Hx of cholecystectomy Family History Other Substance abuse Social History Household Members: Family Housing: House 75 years or older and lives alone: No Alcohol intake: never Patient Tobacco Use Status: Former Tobacco user Tobacco use type: Cigarette e-Cigarette/Vaping Use: Never Used Second Hand Smoke Exposure: No service: No Current occupational status: employed and unemployed Current occupation: works nights Current occupational exposures/hazards: No Gender identity: Male Cognitive needs: No Hearing needs: Yes Vision needs: Yes Physical Exam Vital Signs: BMI result Body Mass Index 46.2 Extrem Other: Left knee examination shows that the surgical incisions are well healed, no erythema, full active extension and flexion to 125 degrees, no instability, minimal discomfort with range of motion Assessment & Plan Assessment & Plan (1) Left knee pain: Comment: refer to ortho for eval and tx Code(s): M25.562 - Pain in left knee Category: Medical Qualifiers: Chronicity: chronic Qualified Code(s): M25.562 - Pain in left knee; G89.29 - Other chronic pain Plan Socrates continues to do fairly well after undergoing left knee arthroscopic surgery on 05/22/2024. He will continue with his home exercise program. I did give him a prescription for tramadol to help with his discomfort. He will contact me prior to his follow-up appointment in 2 months should any questions or concerns arise. Feel free to call me at any time should questions regarding his orthopedic management arise. Medications: New tramadol 50 mg PO Q12H PRN 30 tabs 0RF pain Coding Level of Care Code Global (18063) Diagnoses Chronic pain of left knee M25.562; G89.29 Chronicity: chronic
== END 2024-07-22 12:59 | disposition home or self-care (01) ==
PROVIDERS: PCP Nurse Practitioner Family; Visit Provider Orthopaedic Surgery
DX: M25.562 Pain in left knee (principal); G89.29 Other chronic pain
CPT/HCPCS: 99024

== ENCOUNTER → 2024-07-22 12:37 | Outpatient (BNVA) | payer OTHER, SELFPAY | PROVIDERS: PCP Nurse Practitioner Family; Visit Provider Orthopaedic Surgery | DX: M25.562 Pain in left knee (principal); G89.29 Other chronic pain | CPT/HCPCS: 99212 ==

== ENCOUNTER 2024-07-30 10:15 | Outpatient (REF) | payer OTHER, SELFPAY ==
[2024-07-30 10:59] LABS: Appearance Urine Clear; Color Urine Yellow; Glucose Urine UA Negative (Negative); Leukocyte Esterase Urine Negative (Negative); Nitrite Urine Negative (Negative); PH 5.5 (5.0-9.0); Specific Gravity - Urine >= 1.030 (1.005-1.025); UMIC TRIGGER UA YES; Urine Blood Negative (Negative); Urine Ketones Trace mg/dL (Negative); Urine Protein 100 (2+) mg/dL (Neg-Trace)
[2024-07-30 11:07] LABS: Bacteria Urine None Seen (None Seen); Hyaline Casts Urine 0-2 /LPF (0-2); RBC Urine 0-2 /HPF (0-2); Squamous Epithelial Cell Urine 0-2 /HPF (0-2); WBC Urine 0-5 /HPF (0-5)
[2024-07-30 11:07] LABS: Estimated Average Glucose 134 mg/dL; Hemoglobin A1C 174.5941 umol/L; Hemoglobin A1c % 6.3 % (<6.0); Total Hemoglobin (HGBA1C) 3816.2222 umol/L
[2024-07-30 11:40] LABS: Alanine Aminotransferase 27 U/L (0-40); Albumin Level 4.3 g/dL (3.5-5.0); Alkaline Phosphatase 80 U/L (39-117); Anion Gap 14 (12-20); Aspartate Amino Transferase 29 U/L (5-37); Bilirubin Total 0.4 mg/dL (0.0-1.0); Blood Urea Nitrogen 12 mg/dL (9-16); Calcium 9.6 mg/dL (8.4-10.2); Carbon Dioxide 26 mmol/L (22-29); Chloride 104 mmol/L (96-108); Cholesterol 252 mg/dL (<200); Estimated Glomerular Filt Rate > 60; Glucose Fasting 115 mg/dL (60-99); HDL Cholesterol 55 mg/dL (>40); LDL Cholesterol Calculated 135 mg/dL (<100); Potassium 3.9 mmol/L (3.3-5.1); Sodium 140 mmol/L (135-145); Total Protein 7.4 g/dL (6.5-8.0); Triglycerides 312 mg/dL (<150)
[2024-07-30 11:52] LABS: Microalbum/Creatinine Ratio Ur 98.9 ug/mg cr (<30)
== END 2024-07-30 10:16 | disposition home or self-care (01) ==
LOC: HO.LAB 10:15
PROVIDERS: PCP Nurse Practitioner Family; Visit Provider Internal Medicine Hypertension Specialist
DX: R80.9 Proteinuria, unspecified (principal); R73.03 Prediabetes; K76.0 Fatty (change of) liver, not elsewhere classified; I10 Essential (primary) hypertension; E78.00 Pure hypercholesterolemia, unspecified
CPT/HCPCS: 36415; 80053; 80061; 81001; 81003; 82043; 82570; 83036

== ENCOUNTER 2024-07-31 11:14 | Outpatient (AMB) | payer OTHER, SELFPAY ==
[2024-07-31 11:16] VITALS: BP 140/98; PULSE 70; O2SAT 95; BMI 47.6
--- NOTE | 2024-07-31 11:16 | HO.NEPHOV_ITS ---
Vital Signs 07/31/24 11:16 Height 5 ft 3 in Weight 269 lb BMI 47.6 BP 140/98 H Blood Pressure Location Lt brachial Position Sitting Pulse 70 Pulse Source Pulse Oximeter Pulse Oximetry (%) 95 Oxygen Delivery Method Room Air Intake Visit Reasons: Hypertension Cytotechnologist/Histotechnologist Required: Yes Cytotechnologist/Histotechnologist Name: anna [id number] Accompanied by: Self / Same As Patient Allergies lisinopril Adverse Reaction (Verified 07/31/24 11:16) Cough, headache Medication List - Last Reconciled 07/31/24 by Jorge Luis Acosta MD albuterol sulfate 1.25 mg (3 mL) inhalation Q4H 1 month albuterol sulfate 90 mcg/actuation 2 inhalations inhalation Q6H PRN atorvastatin 40 mg PO BEDTIME 90 days blood pressure kit-extra large As directed buspirone 10 mg PO BID docusate sodium (Colace) 200 mg (2 x 100 mg) PO BEDTIME fluoxetine 20 mg PO DAILY ibuprofen 600 mg PO Q6H PRN loratadine 10 mg PO DAILY lorazepam mg PO PRN melatonin 3 mg PO BEDTIME miscellaneous medical supply air purifier for personal use as directed; pantoprazole 20 mg PO BID propranolol ER 60 mg PO BEDTIME salicylic acid 3% (Selsun Blue (salicylic acid)) 1 appl topical 2XW PRN tramadol 50 mg PO Q12H PRN trazodone 50 mg PO BEDTIME umeclidinium-vilanterol 62.5-25 mcg/actuation (Anoro Ellipta) 1 inh inhalation DAILY 30 days valsartan 80 mg PO DAILY ziprasidone HCl 20 mg PO BID HPI Comments Details: 53 yr old man with obesity referred for microalbuminuria and renal cyst Moved from [place] about 3 years ago and has gained 40 lbs since Does not exercise h/o Smoking from age 19 to 46 04/02/24 He stopped taking Amlodipine due to headache 06/04/24 stopped antihypertensives because he ran out !! 07/31/24 Claims to be taking all medications Was supposed to be on Valsartan, i do not see it on the list Cytotechnologist/Histotechnologist Service was used [facility] Medical History Breast mass, left Breast mass, right Cyst of right breast Chronic constipation Bilateral leg cramps Sore throat Rib fractures Tachycardia Impacted cerumen, left ear Low back strain Morbid obesity Pre-op evaluation Elevated blood pressure reading Infected tooth Normal physical exam Asthma, mild intermittent, poorly controlled Poor historian Asthma attacks lasting more than 24 hours Left upper quadrant abdominal pain Asthma Surgical History Umbilical hernia, incarcerated (12/12/23) Subareolar mass of left breast History of excision of mass (07/31/23) History of surgery on arm Hx of cholecystectomy Family History Other Substance abuse Social History Household Members: Family Housing: House 75 years or older and lives alone: No Alcohol intake: never Patient Tobacco Use Status: Former Tobacco user Tobacco use type: Cigarette e-Cigarette/Vaping Use: Never Used Second Hand Smoke Exposure: No service: No Current occupational status: employed and unemployed Current occupation: works nights Current occupational exposures/hazards: No Gender identity: Male Cognitive needs: No Hearing needs: Yes Vision needs: Yes Physical Exam Vital Signs: Last Vital Signs Pulse 70 07/31/24 11:16 BP 140/98 H 07/31/24 11:16 Pulse Ox 95 07/31/24 11:16 Oxygen Delivery Method Room Air 07/31/24 11:16 BMI result Body Mass Index 47.6 Const General: comfortable; No acute distress Orientation/consciousness: patient oriented x3 Eyes General: appearance normal, both eyes and all related structures Visual Escobar: normal visual escobar by confrontation Neck Neck: Yes supple and Yes no JVD Resp Effort & Inspection: normal respiratory effort and respiratory effort not decreased Auscultation: rhonchi Cardio Palpation: no palpable S3 and no palpable S4 Heart sounds: no rubs GI Inspection: Yes normal to inspection Palpation (GI): Soft to palpation Percussion: Yes normal to percussion Auscultation: normal bowel sounds General: Yes no CVA tenderness Back/Spine/Pelvis Back: no CVA tenderness Skin General skin exam: no petechiae and no purpura Neuro General: patient oriented x3 and no focal motor deficits Extrem General: No clubbing and No edema Results Reviewed Nephrology Results: Sodium 140 mmol/L (135-145) 10/24/24 Potassium 3.9 mmol/L (3.3-5.1) 07/30/24 Chloride 104 mmol/L (96-108) 07/30/24 Carbon Dioxide 26 mmol/L (22-29) 07/30/24 BUN 12 mg/dL (9-16) 07/30/24 Creatinine 0.89 mg/dL (0.5-1.4) 07/30/24 Calcium 9.6 mg/dL (8.4-10.2) 07/30/24 Urine Protein 100 (2+) mg/dL (Neg-Trace) H 07/30/24 Urine Creatinine 277.90 mg/dL 24 Assessment & Plan Assessment & Plan (1) Microalbuminuria: Comment: Most likely due to Obesity/HTN Code(s): R80.9 - Proteinuria, unspecified Category: Medical Plan: He needs weight loss He will benefit from KAYLYN inhibitor or ARB for renal protection. Maintain blood pressure less than 130/80. (2) Renal cyst: Code(s): N28.1 - Cyst of kidney, acquired Category: Medical Plan: . CT scan done in 2022 revealed renal cyst. Follow renal ultrasonogram shows septic cyst on both kidneys and a repeat CT scan has been recommended. Repeat CT scan. shows simple cyst (3) Hypertension: Comment: goal <130/80 Code(s): I10 - Essential (primary) hypertension Category: Social Hx Qualifiers: Hypertension type: primary hypertension Qualified Code(s): I10 - Essential (primary) hypertension Plan: ADD VALSARTAN 80 mg DAILY (4) Dyslipidemia: Comment: Lipid panel - sub optimal Code(s): E78.5 - Hyperlipidemia, unspecified Category: Medical Plan: Encouraged to continue Lipitor Discussed complaince Medications: New valsartan 80 mg PO DAILY 90 tabs 2RF Coding Level of Care Code Est Pt Level 4 (48509) Diagnoses Microalbuminuria R80.9 Renal cyst N28.1 Primary hypertension I10 Hypertension type: primary hypertension Dyslipidemia E78.5
== END 2024-07-31 11:35 | disposition home or self-care (01) ==
PROVIDERS: PCP Nurse Practitioner Family; Visit Provider Internal Medicine Hypertension Specialist
DX: R80.9 Proteinuria, unspecified (principal); N28.1 Cyst of kidney, acquired; I10 Essential (primary) hypertension; E78.5 Hyperlipidemia, unspecified
CPT/HCPCS: 99214

== ENCOUNTER → 2024-07-31 11:14 | Outpatient (BNVA) | payer OTHER, SELFPAY | PROVIDERS: PCP Nurse Practitioner Family; Visit Provider Internal Medicine Hypertension Specialist | DX: R80.9 Proteinuria, unspecified (principal); N28.1 Cyst of kidney, acquired; I10 Essential (primary) hypertension; E78.5 Hyperlipidemia, unspecified | CPT/HCPCS: 99212 ==

== ENCOUNTER → 2024-08-17 14:00 | Outpatient (REF) | payer OTHER, SELFPAY | LOC: HO.SL 14:00 | PROVIDERS: PCP Nurse Practitioner Family; Visit Provider Nurse Practitioner Family | DX: R51.9 Headache, unspecified (principal); E66.01 Morbid (severe) obesity due to excess calories; Z68.42 Body mass index [BMI] 45.0-49.9, adult | CPT/HCPCS: 95806 ==

== ENCOUNTER 2024-09-04 12:20 | Emergency (ER) | payer OTHER, SELFPAY ==
--- NOTE | ~2024-09-04 | CT_ITS ---
EXAMINATION: CT HEAD WITHOUT CONTRAST CLINICAL INFORMATION: Headache. COMPARISON: CT head from 02/27/2023. TECHNIQUE: Contiguous axial imaging was performed from the skull base to vertex without intravenous administration of contrast. This CT examination was performed using dose optimization techniques as appropriate, variously including the following: *Automated exposure control. *Adjustment of mA and/or kV according to patient size (this includes techniques or standardized protocols for targeted exams where dose is matched to indication/reason for exam; i.e. extremities or head). *Use of iterative reconstruction technique. DLP: 764 mGy-cm FINDINGS: There is no evidence of acute intracranial hemorrhage or edematous territorial infarction. [place]-white matter differentiation is preserved. A few foci of hypoattenuation in the periventricular and deep white matter are consistent with mild microangiopathy. The ventricles are normal in morphology and size. No evidence for obstructive hydrocephalus. No abnormal mass effect or midline shift. No extra-axial fluid collections. Mild calcific atherosclerotic disease of the intracranial internal carotid and vertebral arteries. No hyperdense vessel sign. No acute soft tissue or osseous abnormalities. Mild mucosal thickening of the paranasal sinuses. The mastoid air cells and middle ear cavities are clear. CT/CT head/brain wo IV con IMPRESSION: 1. No evidence of acute intracranial hemorrhage or edematous territorial infarction. 2. Mild underlying microangiopathy. Electronically signed by: Sudhir Escalona DO 09/04/2024 02:35 PM EST
[2024-09-04 12:55] VITALS: BP 150/107; PULSE 94; RESP 16; TEMP 36.9; O2SAT 99; BMI 47.8
--- NOTE | 2024-09-04 12:56 | ED.HA ---
HPI - Headache General Chief Complaint: Headache Stated Complaint: Headache Time Seen by Provider: 09/04/24 15:45 Source: patient Mode of arrival: ambulatory Limitations: no limitations History of Present Illness ED Provider: Rico Diana HPI Narrative: 54-year-old male history of high blood pressure and DC presents to ED for headache since last night. Patient states he has been with his prep Tylenol for the past 5 days. Patient denies any chest pain, shortness of breath, slurred speech, nausea or vomiting. Related Data Home Medications ?Medication ?Instructions ?Recorded ?Confirmed fluoxetine 20 mg capsule 20 mg PO DAILY 03/05/24 07/31/24 lorazepam 0.5 mg tablet mg PO PRN 03/05/24 07/31/24 buspirone 10 mg tablet 10 mg PO BID 04/02/24 07/31/24 melatonin 3 mg tablet 3 mg PO BEDTIME 04/02/24 07/31/24 trazodone 50 mg tablet 50 mg PO BEDTIME 04/02/24 07/31/24 ziprasidone HCl 20 mg capsule 20 mg PO BID 04/02/24 07/31/24 Previous Rx's ?Medication ?Instructions ?Recorded blood pressure kit-extra large #1 ea 11/20/22 miscellaneous medical supply See Rx Instructions miscellaneous 11/20/22 .COMPLEX #1 ea umeclidinium 62.5 mcg-vilanterol 1 inh inhalation DAILY 30 days #1 02/27/23 25 mcg/actuation powdr for ea inhalation (Anoro Ellipta) atorvastatin 40 mg tablet 40 mg PO BEDTIME 90 days #90 tabs 01/30/24 docusate sodium 100 mg capsule 200 mg (2 x 100 mg) PO BEDTIME 01/30/24 (Colace) #180 caps loratadine 10 mg tablet 10 mg PO DAILY #90 tabs 01/30/24 albuterol sulfate 1.25 mg/3 mL 1.25 mg (3 mL) inhalation Q4H 1 02/05/24 solution for nebulization month #540 mL ibuprofen 600 mg tablet 600 mg PO Q6H PRN pain #14 tabs 06/08/24 albuterol sulfate 90 mcg/actuation 2 inh inhalation Q6H PRN shortness 07/13/24 breath activated powder inhaler of breath or wheezing #1 ea pantoprazole 20 mg tablet,delayed 20 mg PO BID #60 tabs 07/13/24 release salicylic acid 3 % shampoo (Selsun 1 appl topical 2XW PRN itching 07/14/24 Blue (salicylic acid)) #325 mL tramadol 50 mg tablet 50 mg PO Q12H PRN pain #30 tabs 07/22/24 valsartan 80 mg tablet 80 mg PO DAILY #90 tabs 07/31/24 propranolol 60 mg capsule,24 60 mg PO BEDTIME #30 caps 08/11/24 hr,extended release propranolol 60 mg capsule,24 60 mg PO BEDTIME 14 days #14 caps 09/04/24 hr,extended release Allergies Allergy/AdvReac Type Severity Reaction Status Date / Time lisinopril AdvReac Cough, Verified 09/04/24 12:56 headache Review of Systems Review of Systems: Headache high blood pressure Yes all other systems are reviewed and are negative [facility] Past Medical History Medical History Breast mass, left Breast mass, right Cyst of right breast Chronic constipation Bilateral leg cramps Sore throat Rib fractures Tachycardia Impacted cerumen, left ear Low back strain Morbid obesity Pre-op evaluation Elevated blood pressure reading Infected tooth Normal physical exam Asthma, mild intermittent, poorly controlled Poor historian Asthma attacks lasting more than 24 hours Left upper quadrant abdominal pain Asthma Surgical History Umbilical hernia, incarcerated (12/12/23) Subareolar mass of left breast History of excision of mass (07/31/23) History of surgery on arm Hx of cholecystectomy Family History Family History Other Substance abuse Social History Social History Household Members: Family Housing: House Alcohol intake: never Patient Tobacco Use Status: Former Tobacco user Tobacco use type: Cigarette Smoked in Last 30 Days: No e-Cigarette/Vaping Use: Never Used Second Hand Smoke Exposure: No Use of substances other than those prescribed or required for medical reasons: No Advance Directives: No Advance Directives Information Provided: No Do you have a plan to hurt others: No Plan service: No Current occupational status: employed and unemployed Current occupation: works nights Current occupational exposures/hazards: No Gender identity: Male Cognitive needs: No Hearing needs: Yes Vision needs: Yes Physical Exam Vital Signs: Vital Signs: Last Vital Signs Temp 98.7 F 09/04/24 21:55 Pulse 66 09/04/24 21:55 Resp 16 09/04/24 21:55 BP 138/92 H 09/04/24 21:55 Pulse Ox 95 09/04/24 21:55 O2 Del Method Room Air 09/04/24 21:55 BMI result Body Mass Index 47.8 Const: General: cooperative, healthy appearing, comfortable, no acute distress, well developed, alert, awake and Physically active Orientation/consciousness: patient oriented x3 HEENT: Head: Yes normal to inspection, Yes No palpable skull fracture present, Yes normocephalic and Yes atraumatic Ears: hearing grossly normal bilaterally, external ears normal, TM's normal bilaterally, TM normal on the right, TM normal on the left, EAC's normal, mastoids normal and no periauricular adenopathy General nose exam: Normal external nose present and Normal nares present Throat: Yes posterior oropharynx normal, Yes tonsils normal and Yes uvula midline Eyes: General: appearance normal, both eyes and all related structures Neck: Neck: Yes normal visual inspection, Yes full ROM, Yes no lymphadenopathy, Yes no meningeal signs, Yes trachea midline, Yes supple, No anterior neck swelling and No tender Chest: Chest palpation & inspection: normal inspection of the chest and normal palpation of entire chest wall Resp: Effort & Inspection: normal respiratory effort and able to speak in complete sentences Auscultation: clear to auscultation bilaterally Cardio: Jugular venous distension: no JVD Heart sounds: S1 normal heart sound present and S2 normal heart sound present GI: Inspection: Yes normal to inspection Palpation (GI): Soft to palpation, not firm, nontender, no guarding and not rigid : General: Yes no CVA tenderness Back/Spine/Pelvis: Back: no CVA tenderness and No back tenderness Skin: General skin exam: no rashes or lesions noted, elasticity normal and turgor normal Neuro: General: patient oriented x3, gait normal, tone normal, moves all extremities, Normal light touch and pain sensation, no meningeal signs, no focal motor deficits and CN's II-XI intact bilaterally Extrem: General: Yes normal to inspection, Yes full ROM and Yes capillary refill normal Psych: Appearance: grossly normal, well kempt and not disheveled NIH Stroke Scale Internal: Initial- Upon Arrival Level of Consciousness: Alert Level of Consciousness Questions: Answers both questions correctly Level of Consciousness Commands: Performs both tasks correctly Best Gaze: Normal Visual: No visual loss Facial Palsy: Normal Motor Arm (Right): No drift Motor Arm (Left): No drift Motor Leg (Right): No drift Motor Leg (Left): No drift Limb Ataxia: Absent Sensory: Normal Best Language: No aphasia Dysarthia: Normal Extinction and Inattention: No abnormality Score: 0 Course Course Course Narrative: This is an RME: Additional HPI, ROS, PE not included below will be deferred to primary provider. RME assessment and note performed by: Waleska Herrera PA-C This is a [id number]-male, with a hx of hypertension, asthma, who presents to the ER with a complaint headache since yesterday. Patient reports that he has had this ongoing headache however states that it worsened significantly yesterday. No neurologic focal deficits on examination. no recent head trauma. Patient has been without his propranolol for 4-5 days, he has a follow-up appointment with his primary care physician next week. no other symptoms. Plan: CT head, viral swabs Reevaluation(s) Reevaluation #1: Patient received in sign-out at change of shift pending repeat drop which came back at 2.8. The patient is stable for discharge at this time. Time: 21:46 Medications Administered Discontinued Medications Generic Name Dose Route Start Last Admin Trade Name Deepakq PRN Reason Stop Dose Admin Acetaminophen 975 mg 09/04/24 17:24 09/04/24 17:58 Acetaminophen 325 Mg Tablet PO 09/04/24 17:25 975 mg ONCE ONE Administration Propranolol HCl 60 mg 09/04/24 17:24 09/04/24 17:58 Propranolol Hcl 20 Mg Tablet PO 09/04/24 17:25 60 mg ONCE ONE Administration Protocol Medical Decision Making Medical Decision Making MDM Narrative: 54-year-old male presents to ED for being without his propanolol pop blood pressure medication for 5 days not having headache without any neuro like symptoms. Blood pressure elevated. NIH score is 0. Negative for signs of stroke. Propanolol given for patient's due to history of DC will do 2 troponins to make sure not missing atypical DC. Case signed out to DARYL DOUGLAS. Head CT scan normal. EKG negative STEMI. First troponin negative. Differential Diagnosis Differential Diagnoses: The differential diagnosis associated with the presentation includes (Hypertension, headache,) Admission/Observation Consideration of admission/observation: Escalation of care including admission/observation considered Lab Data MDM Lab Attestation statement: I reviewed the patient's lab results. 09/04/24 17:54 09/04/24 17:54 Labs: Lab Results 09/04/24 09/04/24 09/04/24 Range/Units 15:03 17:54 20:59 WBC 8.8 (4.8-10.8) X10*3/uL RBC 5.92 H (4.60-5.80) X10*6/uL Hgb 15.0 (14.0-18.0) g/dl Hct 46.6 (42.0-52.0) % MCV 78.7 L (80.0-98.0) fL MCH 25.3 L (27.0-33.0) pg MCHC 32.2 (31.0-36.0) g/dl RDW 16.2 H (11.0-16.0) % Plt Count 304 (160-400) X10*3/uL MPV 9.7 (9.4-12.4) fL Immature Gran % (Auto) 0.6 H (0.0-0.4) % Neut % (Auto) 64.4 (45-73) % Lymph % (Auto) 23.9 (20-40) % [place] % (Auto) 7.3 (2-11) % Eos % (Auto) 3.2 (0-4) % Baso % (Auto) 0.6 (0-2) % Lymph # (Auto) 2.1 (1.2-4.9) X10*3/uL [place] # (Auto) 0.6 (0.1-1.2) X10*3/uL Eos # (Auto) 0.3 (0.0-0.4) X10*3/uL Baso # (Auto) 0.1 (0.0-0.2) X10*3/uL Abs Immat Gran (auto) 0.05 H (0.00-0.03) X10*3/uL Absolute Neuts (auto) 5.6 (2.0-8.3) x10*3/uL Absolute Nucleated RBC 0.000 (0.0-0.012) X10*3/uL Nucleated RBC % (auto) 0.0 (0.0-0.2) /100WBC PT 10.3 L (10.9-12.4) SEC INR 0.9 (0.9-1.1) APTT 31.4 (26.0-36.8) SEC Sodium 141 (135-145) mmol/L Potassium 4.5 (3.3-5.1) mmol/L Chloride 105 (96-108) mmol/L Carbon Dioxide 25 (22-29) mmol/L Anion Gap 16 (12-20) BUN 19 H (9-16) mg/dL Creatinine 1.19 (0.5-1.4) mg/dL Estim Creat Clear Calc 84.4 Estimated GFR > 60 Random Glucose 116 H (60-115) mg/dL Calcium 9.7 (8.4-10.2) mg/dL Total Bilirubin 0.2 (0.0-1.0) mg/dL AST 25 (5-37) U/L ALT 27 (0-40) U/L Alkaline Phosphatase 85 (39-117) U/L Troponin I High Sens < 2.7 2.8 (<3.5-35.0) ng/L Total Protein 7.5 (6.5-8.0) g/dL Albumin 4.2 (3.5-5.0) g/dL Influenza Type A (PCR) NEGATIVE (Negative) Influenza Type B (PCR) NEGATIVE (Negative) RSV RNA Qual (PCR) NEGATIVE (Negative) SARS-CoV-2 RNA (RT-PCR) NEGATIVE (Negative) Independent Interpretation I performed an independent interpretation of an: EKG (Negative STEMI) and CT Scan Radiology Impression Discussion of test interpretation with radiology: I have reviewed the radiologist's reading. Independent Historian Clinical information obtained from an independent historian. History obtained from or confirmed by: Other (Patient) External Record Review External record reviewed: Other (Prior visits) Prescription Management I considered prescription management with: Other (HTN meds) Discharge Plan Discharge Clinical Impression: Medicine refill, Headache Hypertension Qualifiers: Hypertension type: primary hypertension Qualified Code(s): I10 - Essential (primary) hypertension Patient Disposition: Home, Self-Care Instructions: Acute Headache (ED), Hypertension (ED), Medicine Refill (ED) Additional Instructions: Recommend follow-up with the primary care provider. Return to the ED immediately if any slurred speech, facial droop, loss of vision, paralysis of extremities, nausea, vomiting, headache, chest pain, shortness of breath, or any other concerning symptoms. Recommend follow up with the primary care provider and market investigator. Prescriptions: New propranolol 60 mg capsule,extended release 24 hr 60 mg PO BEDTIME 14 Days Qty: 14 0RF No Action Anoro Ellipta 62.5-25 mcg/actuation blister with device 1 inh inhalation DAILY 30 Days Qty: 1 6RF albuterol sulfate 1.25 mg/3 mL solution for nebulization 1.25 mg inhalation Q4H 30 Days Qty: 540 1RF propranolol 60 mg capsule,extended release 24 hr 60 mg PO BEDTIME Qty: 30 0RF ibuprofen 600 mg tablet 600 mg PO Q6H PRN (Reason: pain) Qty: 14 0RF atorvastatin 40 mg tablet 40 mg PO BEDTIME 90 Days Qty: 90 1RF docusate sodium [Colace] 100 mg capsule 200 mg PO BEDTIME Qty: 180 2RF loratadine 10 mg tablet 10 mg PO DAILY Qty: 90 0RF (DME) blood pressure kit-extra large Kit See Rx Instructions .Route Qty: 1 0RF Rx Instructions: As directed miscellaneous medical supply Misc See Rx Instructions miscellaneous .COMPLEX Qty: 1 0RF Rx Instructions: air purifier for personal use as directed; ziprasidone HCl 20 mg capsule 20 mg PO BID buspirone 10 mg tablet 10 mg PO BID trazodone 50 mg tablet 50 mg PO BEDTIME melatonin 3 mg tablet 3 mg PO BEDTIME tramadol 50 mg tablet 50 mg PO Q12H PRN (Reason: pain) Qty: 30 0RF pantoprazole 20 mg tablet,delayed release (DR/EC) 20 mg PO BID Qty: 60 2RF albuterol sulfate 90 mcg/actuation aerosol powdr breath activated 2 inh inhalation Q6H PRN (Reason: shortness of breath or wheezing) Qty: 1 0RF Selsun Blue (salicylic acid) 3 % shampoo 1 appl topical 2XW PRN (Reason: itching) Qty: 325 12RF Rx Instructions: leave on for 8 to14 hrs before washing off lorazepam 0.5 mg tablet PO PRN fluoxetine 20 mg capsule 20 mg PO DAILY valsartan 80 mg tablet 80 mg PO DAILY Qty: 90 2RF Stand Alone Forms: Work/School Release Interventions: ED Discharge Assessment Last Done: 09/04/24 21:55 Discharge Date/Time: 09/04/24 21:57 Print Language: Beninese
[2024-09-04 15:46] LABS: Influenza A PCR NEGATIVE (Negative); Influenza B PCR NEGATIVE (Negative); Resp Syncy Virus RNA Qual PCR NEGATIVE (Negative); SARS COV2 PCR INHOUSE NEGATIVE (Negative)
[2024-09-04 16:05] VITALS: BP 167/103; PULSE 80; RESP 20; TEMP 36.3; O2SAT 95
--- NOTE | 2024-09-04 17:06 | ECG_ITS ---
Test Reason : HEADACHE Blood Pressure : / mmHG Vent. Rate : 076 BPM Atrial Rate : 076 BPM P-R Int : 192 ms QRS Dur : 070 ms QT Int : 404 ms P-R-T Axes : 018 003 064 degrees QTc Int : 454 ms Normal sinus rhythm Nonspecific T wave abnormality Abnormal ECG When compared with ECG of 20-FEB-2024 11:25, No significant change was found Referred By: Rico Diana Electronically Signed By:MARKIE IVORY
[2024-09-04] MEDS: Propranolol HCL 20 MG TABLET 60 MG PO (17:58)
[2024-09-04] MEDS: Acetaminophen 325 MG TABLET 975 MG PO (17:58)
[2024-09-04 18:07] LABS: MANUAL DIFF FLAG NO
[2024-09-04 18:13] LABS: Basophils Absolute Auto 0.1 X10*3/uL (0.0-0.2); Basophils Percent Auto 0.6 % (0-2); Eosinophils Absolute Auto 0.3 X10*3/uL (0.0-0.4); Eosinophils Percent Auto 3.2 % (0-4); Hematocrit 46.6 % (42.0-52.0); Imm Gran Abs Auto 0.05 X10*3/uL (0.00-0.03); Imm Gran Pct Auto 0.6 % (0.0-0.4); Lymphocytes Absolute Auto 2.1 X10*3/uL (1.2-4.9); Lymphocytes Percent Auto 23.9 % (20-40); Mean Corpuscular HGB Conc 32.2 g/dl (31.0-36.0); Mean Corpuscular Hemoglobin 25.3 pg (27.0-33.0); Mean Corpuscular Volume 78.7 fL (80.0-98.0); Mean Platelet Volume 9.7 fL (9.4-12.4); Monocytes Absolute Auto 0.6 X10*3/uL (0.1-1.2); Monocytes Percent Auto 7.3 % (2-11); Neutrophils Absolute Auto 5.6 x10*3/uL (2.0-8.3); Neutrophils Percent Auto 64.4 % (45-73); Platelet Count 304 X10*3/uL (160-400); Red Blood Count 5.92 X10*6/uL (4.60-5.80); Red Cell Distribution Width 16.2 % (11.0-16.0); White Blood Count 8.8 X10*3/uL (4.8-10.8)
[2024-09-04 18:21] LABS: INTERNATIONAL NORM RATIO 0.9 (0.9-1.1); Prothrombin Time 10.3 SEC (10.9-12.4)
[2024-09-04 18:22] LABS: Alanine Aminotransferase 27 U/L (0-40); Albumin Level 4.2 g/dL (3.5-5.0); Alkaline Phosphatase 85 U/L (39-117); Anion Gap 16 (12-20); Aspartate Amino Transferase 25 U/L (5-37); Bilirubin Total 0.2 mg/dL (0.0-1.0); Blood Urea Nitrogen 19 mg/dL (9-16); Calcium 9.7 mg/dL (8.4-10.2); Carbon Dioxide 25 mmol/L (22-29); Chloride 105 mmol/L (96-108); Creatinine Clr Calc Pharmacy 84.4; Estimated Glomerular Filt Rate > 60; Glucose Random 116 mg/dL (60-115); Potassium 4.5 mmol/L (3.3-5.1); Sodium 141 mmol/L (135-145); Total Protein 7.5 g/dL (6.5-8.0)
[2024-09-04 18:23] LABS: Partial Thromboplastin Time 31.4 SEC (26.0-36.8)
[2024-09-04 18:29] LABS: Troponin-I High Sensitivity < 2.7 ng/L (<3.5-35.0)
[2024-09-04 18:46] VITALS: BP 149/99; PULSE 68; RESP 18; TEMP 37.4; O2SAT 95
[2024-09-04 21:28] LABS: Troponin-I High Sensitivity 2.8 ng/L (<3.5-35.0)
[2024-09-04 21:55] VITALS: BP 138/92; PULSE 66; RESP 16; TEMP 37.1; O2SAT 95
== END 2024-09-04 21:57 | disposition home or self-care (01) ==
PROVIDERS: Physician Assistant; Physician Assistant Medical; Emergency Provider Emergency Medicine
DX: R51.9 Headache, unspecified (principal); R94.31 Abnormal electrocardiogram [ECG] [EKG]; I10 Essential (primary) hypertension; Z76.0 Encounter for issue of repeat prescription; Z03.818 Encounter for observation for suspected exposure to other biological agents ruled out; Z79.899 Other long term (current) drug therapy
CPT/HCPCS: 0241U; 36415; 70450; 80053; 84484; 85025; 85610; 85730; 93005; 99284; 99285

== ENCOUNTER → 2024-09-04 17:06 | Outpatient (BNV) | payer OTHER, SELFPAY | PROVIDERS: Emergency Provider Emergency Medicine; Visit Provider Internal Medicine | DX: R94.31 Abnormal electrocardiogram [ECG] [EKG] (principal) | CPT/HCPCS: 93010 ==

== ENCOUNTER 2024-09-08 12:45 | Outpatient (AMB) | payer OTHER, SELFPAY ==
--- NOTE | 2024-09-08 12:49 | MHC.PC.OV ---
Vital Signs 09/08/24 12:54 09/08/24 13:21 Height 5 ft 3 in Weight 264 lb BMI 46.8 BP 144/82 H 150/90 H Blood Pressure Location Lt brachial Lt brachial Position Sitting Sitting Respiration 15 Pulse 68 Pulse Source Pulse Oximeter Pulse Oximetry (%) 94 Oxygen Delivery Method Room Air Intake Visit Reasons: 8weeks w me FU sleep study results/BP 30 min Intake Note: follow up on sleep study results. Patient was also in ER last week. Precision Printing Worker Required: Yes Precision Printing Worker Language: Home Health Rn Name: [id number] Allergies lisinopril Adverse Reaction (Verified 09/08/24 12:58) Cough, headache Medication List - Last Reconciled 09/08/24 by Sravani Ledesma, TECHNOLOGY EDUCATION TEACHER- albuterol sulfate 1.25 mg (3 mL) inhalation Q4H 1 month albuterol sulfate 90 mcg/actuation 2 inhalations inhalation Q6H PRN atorvastatin 40 mg PO BEDTIME 90 days blood pressure kit-extra large As directed buspirone 10 mg PO BID docusate sodium (Colace) 200 mg (2 x 100 mg) PO BEDTIME fluoxetine 20 mg PO DAILY ibuprofen 600 mg PO Q6H PRN loratadine 10 mg PO DAILY lorazepam mg PO PRN melatonin 3 mg PO BEDTIME miscellaneous medical supply air purifier for personal use as directed; pantoprazole 20 mg PO BID propranolol ER 60 mg PO BEDTIME salicylic acid 3% (Selsun Blue (salicylic acid)) 1 appl topical 2XW PRN tramadol 50 mg PO Q12H PRN trazodone 50 mg PO BEDTIME umeclidinium-vilanterol 62.5-25 mcg/actuation (Anoro Ellipta) 1 inh inhalation DAILY 30 days valsartan 80 mg PO DAILY ziprasidone HCl 20 mg PO BID Tobacco use date assessed: 01/30/24 Dental Screening Dental Screen Date: 01/30/24 HPI HPI Comments History of Present Illness Details 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 He went to [facility] on 09/04/2024 for complaints of a headache and hypertension. The note and workup were reviewed. The patient states that he was taking propranolol ER 60 mg as prescribed at our last office visit and this seemed to be helping his headache as well as his blood pressure. However he ran out and went to the emergency room. I asked him why he did not call our office for a refill or have the pharmacy contact us and he states that he did. I do not see any information in his chart supporting this. I provided him with a business card with the correct information for contacting our office. He reports that he was given a 2 week supply of his medication from the emergency room however his insurance did not cover any had to pay bach. I asked that he had insurance and he states that yes he does and it is active. Unsure why he had to pay for this. Be that as it may it worked well for his headache as well as his blood pressure therefore I will refill this prescription. His blood pressure remains elevated. He states that he was taking his valsartan 80 mg daily in addition to the propranolol. He was managed by Nephrology for his hypertension. On his labs from 07/31/2024 his lipids were elevated. I asked him if he is taking his atorvastatin 40 mg as directed. He reports that he forgets sometimes but he tries his best to take it. 07/31/24 labs lipids elevated, a1c 6.3% and + microalb 08/2024 abnormal sleep study, severe MAEGAN and hypoxemia, stat titration study ordered, however pending insurance approval. Reviewed the results with him today. He reports that the sleep study results are not accurate as the tubing did not stay in his nose. Be that as it may he is willing to undergo the titration study. Finally he complains of having a painful tongue. He reports in the center of his tongue it was red and painful. Started 2 months ago. Can not correlate anything with the onset. Eating and drinking does not make it worse. He has not tried any at home remedies. Exam Awake alert, NAD MMM, Tongue with red center, no lesions RRR LS CTAB, dim throughout No edema BLE Mood and affect appropriate Plan: A refill of propranolol ER 60 mg was sent to the pharmacy. Advised for him to follow up with me if he was not able to get this medication. He should continue to take his valsartan 80 mg as prescribed by Nephrology not only to help his hypertension but also to help his microalbuminuria. As his lipid profile is elevated and he reports that he is taking his atorvastatin 40 mg most of the time, I will increase his atorvastatin to 80 mg daily. To treat the soreness of his tongue I have advised for him to take vitamin B12 2000 mcg daily. Avoid any acidic food or fluid intake. Notify me if there was no improvement. Once his sleep titration study is approved by insurance, he will receive a phone call to schedule. I would like for him to see the nurse navigator for blood pressure recheck in 2 weeks. I have also placed a referral to the nurse navigator to help with disease education, medication compliance, and to help with recurrent use of the emergency room. I would like to see him back in 3 months for routine follow up with the understand that I will see him sooner or touch base with him once I see the results of the sleep titration study. This note is constructed using voice recognition software. While every effort has been made to ensure accuracy in textile machine operator, still errors may have been included Sometimes, these errors may affect the content or meaning of the given sentence . Total time spent caring for the patient today was 60 minutes. This includes time spent before the visit reviewing the chart, time spent during the visit, and time spent after the visit on documentation [facility] Medical History Breast mass, left Breast mass, right Cyst of right breast Chronic constipation Bilateral leg cramps Sore throat Rib fractures Tachycardia Impacted cerumen, left ear Low back strain Morbid obesity Pre-op evaluation Elevated blood pressure reading Infected tooth Normal physical exam Asthma, mild intermittent, poorly controlled Poor historian Asthma attacks lasting more than 24 hours Left upper quadrant abdominal pain Asthma Surgical History Umbilical hernia, incarcerated (12/12/23) Subareolar mass of left breast History of excision of mass (07/31/23) History of surgery on arm Hx of cholecystectomy Family History Other Substance abuse Social History Household Members: Family Housing: House 75 years or older and lives alone: No Alcohol intake: never Patient Tobacco Use Status: Former Tobacco user Tobacco use type: Cigarette e-Cigarette/Vaping Use: Never Used Second Hand Smoke Exposure: No service: No Current occupational status: employed and unemployed Current occupation: works nights Current occupational exposures/hazards: No Gender identity: Male Cognitive needs: No Hearing needs: Yes Vision needs: Yes Questionnaire Thrive Questionnaire Date Thrive assessed: 01/30/24 DENISHA-7 AMB Questionnaire DENISHA-7 Date DENISHA - 7 assessed: 01/30/24 Source: Developed by Drs. Amauri Pandya, Roselyn Jeong, Nigel Posada and colleagues, with an educational beatrice from [employer]. Physical exam (Primary Care) Vital Signs: Last Vital Signs Pulse 68 09/08/24 12:54 Resp 15 09/08/24 12:54 BP 150/90 H 09/08/24 13:21 Pulse Ox 94 09/08/24 12:54 Oxygen Delivery Method Room Air 09/08/24 12:54 BMI result Body Mass Index 46.8 Tobacco/Smoking Status: Tobacco use Status Tobacco use date assessed 01/30/24 09/08/24 12:52 Patient Tobacco Use Status Former Tobacco user 09/08/24 12:52 Tobacco use type Cigarette 09/08/24 12:52 e-Cigarette/Vaping Use Never Used 09/08/24 12:52 Thrive Assessment: Date of Thrive Assessment Date Thrive assessed 01/30/24 09/08/24 12:52 Coding Level of Care Code Est Pt Level 5 (86048) Complex EM visit Add On G2211 Diagnoses Hospital discharge follow-up Z09 Severe obstructive sleep apnea-hypopnea syndrome G47.33 Dyslipidemia E78.5 Prediabetes R73.03 Primary hypertension I10 Hypertension type: primary hypertension Medically noncompliant Z91.199 Glossitis K14.0 Nocturnal hypoxemia G47.34 Chronic daily headache R51.9 Microalbuminuria R80.9 Assessment & Plan Assessment & Plan (1) Hospital discharge follow-up: Code(s): Z09 - Encounter for follow-up examination after completed treatment for conditions other than malignant neoplasm (2) Severe obstructive sleep apnea-hypopnea syndrome: Code(s): G47.33 - Obstructive sleep apnea (adult) (pediatric) Category: Medical (3) Dyslipidemia: Code(s): E78.5 - Hyperlipidemia, unspecified Category: Medical (4) Prediabetes: Comment: hga1c 6.3% 07/2024 referred to bariatric clinic for wt mgmt Code(s): R73.03 - Prediabetes Category: Medical (5) Hypertension: Comment: goal <130/80 Code(s): I10 - Essential (primary) hypertension Category: Social Hx Qualifiers: Hypertension type: primary hypertension Qualified Code(s): I10 - Essential (primary) hypertension (6) Medically noncompliant: Code(s): Z91.199 - Patient's noncompliance with other medical treatment and regimen due to unspecified reason Category: Medical (7) Glossitis: Code(s): K14.0 - Glossitis Category: Medical (8) Nocturnal hypoxemia: Code(s): G47.34 - Idiopathic sleep related nonobstructive alveolar hypoventilation Category: Medical (9) Chronic daily headache: Code(s): R51.9 - Headache, unspecified Category: Medical (10) Microalbuminuria: Comment: Most likely due to Obesity/HTN Code(s): R80.9 - Proteinuria, unspecified Category: Medical Plan . Orders: Referrals Nurse Navigator Referral I10 - Essential (primary) hypertension, Z91.199 - Patient's noncompliance with other medical treatment and regimen due to unspecified reason Medications: New atorvastatin 80 mg PO QPM 90 tabs 2RF mecobalamin (vitamin B12) (B12 Active) 2,000 mcg (2 x 1,000 mcg) PO DAILY 180 tabs 3RF Changed From propranolol ER 60 mg PO BEDTIME 14 days 14 caps 0RF To propranolol ER 60 mg PO BEDTIME 90 caps 2RF Discontinued atorvastatin Discontinued Reason: Doctor's Order 40 mg PO BEDTIME 90 days 90 tabs 1RF E78.00 - Pure hypercholesterolemia, unspecified propranolol ER Discontinued Reason: Duplicate 60 mg PO BEDTIME 30 caps 0RF
[2024-09-08 12:54] VITALS: BP 144/82; PULSE 68; RESP 15; O2SAT 94; BMI 46.8
[2024-09-08 13:21] VITALS: BP 150/90
== END 2024-09-08 13:23 | disposition home or self-care (01) ==
PROVIDERS: Visit Provider Nurse Practitioner Family
DX: G47.33 Obstructive sleep apnea (adult) (pediatric) (principal); E78.5 Hyperlipidemia, unspecified; Z09 Encounter for follow-up examination after completed treatment for conditions other than malignant neoplasm; R73.03 Prediabetes; I10 Essential (primary) hypertension; Z91.199 Patient's noncompliance with other medical treatment and regimen due to unspecified reason; K14.0 Glossitis; G47.34 Idiopathic sleep related nonobstructive alveolar hypoventilation; R51.9 Headache, unspecified; R80.9 Proteinuria, unspecified

== ENCOUNTER → 2024-09-08 12:45 | Outpatient (BNVA) | payer OTHER, SELFPAY | PROVIDERS: Visit Provider Nurse Practitioner Family | DX: Z09 Encounter for follow-up examination after completed treatment for conditions other than malignant neoplasm (principal); G47.33 Obstructive sleep apnea (adult) (pediatric); E78.5 Hyperlipidemia, unspecified; R73.03 Prediabetes; I10 Essential (primary) hypertension; K14.0 Glossitis; G47.34 Idiopathic sleep related nonobstructive alveolar hypoventilation; R51.9 Headache, unspecified; R80.9 Proteinuria, unspecified; Z91.199 Patient's noncompliance with other medical treatment and regimen due to unspecified reason | CPT/HCPCS: 99212 ==

== ENCOUNTER 2024-09-09 13:59 | Outpatient (AMB) | payer OTHER, SELFPAY ==
--- NOTE | 2024-09-09 14:38 | A.OFFVIS_ITS ---
Intake Visit Reasons: Right knee pain and giving way Intake Note: Socrates is a 54 year old male who presents with complaints of progressively worsening right knee pain and giving way. The patient did undergo left knee arthroscopic surgery on 05/22/2024. He denies any pain in his left knee. He states that he injured his right knee several years ago. He twisted his knee and had acute onset of pain. Since that time his symptoms have gotten worse in spite of continued non operative treatments. He has failed the last 6 weeks of conservative treatment which has consisted of physical therapy exercises, topical creams, Tylenol and anti-inflammatory medicines. He states that his right knee will give out several times per day. He has had cortisone injections in the past which gave him no relief. Police Detective Required: Yes Police Detective Language: Supervisor Inventory Merchandising Services: Police Detective Present Police Detective Name: MANUEL Stallworth/WES Information Interpreted: clinical only Allergies lisinopril Adverse Reaction (Verified 09/09/24 14:39) Cough, headache Medication List - Last Reconciled 09/09/24 by Wil Luevano MD albuterol sulfate 1.25 mg (3 mL) inhalation Q4H 1 month albuterol sulfate 90 mcg/actuation 2 inhalations inhalation Q6H PRN atorvastatin 80 mg PO QPM blood pressure kit-extra large As directed buspirone 10 mg PO BID docusate sodium (Colace) 200 mg (2 x 100 mg) PO BEDTIME fluoxetine 20 mg PO DAILY ibuprofen 600 mg PO Q6H PRN loratadine 10 mg PO DAILY lorazepam mg PO PRN mecobalamin (vitamin B12) (B12 Active) 2,000 mcg (2 x 1,000 mcg) PO DAILY melatonin 3 mg PO BEDTIME miscellaneous medical supply air purifier for personal use as directed; pantoprazole 20 mg PO BID propranolol ER 60 mg PO BEDTIME salicylic acid 3% (Selsun Blue (salicylic acid)) 1 appl topical 2XW PRN tramadol 50 mg PO Q12H PRN trazodone 50 mg PO BEDTIME umeclidinium-vilanterol 62.5-25 mcg/actuation (Anoro Ellipta) 1 inh inhalation DAILY 30 days valsartan 80 mg PO DAILY ziprasidone HCl 20 mg PO BID PFSH Medical History Breast mass, left Breast mass, right Cyst of right breast Chronic constipation Bilateral leg cramps Sore throat Rib fractures Tachycardia Impacted cerumen, left ear Low back strain Morbid obesity Pre-op evaluation Elevated blood pressure reading Infected tooth Normal physical exam Asthma, mild intermittent, poorly controlled Poor historian Asthma attacks lasting more than 24 hours Left upper quadrant abdominal pain Asthma Surgical History Umbilical hernia, incarcerated (12/12/23) Subareolar mass of left breast History of excision of mass (07/31/23) History of surgery on arm Hx of cholecystectomy Family History Other Substance abuse Social History Household Members: Family Housing: House 75 years or older and lives alone: No Alcohol intake: never Patient Tobacco Use Status: Former Tobacco user Tobacco use type: Cigarette e-Cigarette/Vaping Use: Never Used Second Hand Smoke Exposure: No service: No Current occupational status: employed and unemployed Current occupation: works nights Current occupational exposures/hazards: No Gender identity: Male Cognitive needs: No Hearing needs: Yes Vision needs: Yes Physical Exam Const Other: Well-nourished well-developed very friendly male awake alert and oriented x3 in no acute distress Extrem Other: Bilateral lower extremity examination shows good capillary refill, no skin lesions noted, normal sensation light touch Right knee examination shows a minimal effusion, minimal crepitus with range of motion, tenderness along his medial joint line, positive Olena's test, no instability Results Reviewed Results Reviewed: Standing full weight-bearing x-rays of the patient's right knee taken previously show mild joint space narrowing, no acute bony abnormalities Assessment & Plan Assessment & Plan (1) Tear of medial meniscus of right knee: Code(s): S83.241A - Other tear of medial meniscus, current injury, right knee, initial encounter Category: Medical Plan Mr. Devaughn Parry presents with progressively worsening right knee pain and mechanical symptoms most likely due to a medial meniscus tear. Thus, I will send the patient for an MRI of his right knee for further evaluation. I will see him back once the MRI is completed to discuss the findings and treatment options. Feel free to call me at any time should questions regarding his orthopedic management arise. I spent 21 minutes in reviewing the patient's records and imaging studies, seeing the patient and documenting in the medical record. Orders: Orders 2 MR knee RT wo con Today S83.241A - Other tear of medial meniscus, current injury, right knee, initial encounter Coding Level of Care Code Est Pt Level 3 (30803) Complex EM visit Add On G2211 Diagnoses Tear of medial meniscus of right knee S83.241A
== END 2024-09-09 14:55 | disposition home or self-care (01) ==
PROVIDERS: PCP Nurse Practitioner Family; Visit Provider Orthopaedic Surgery
DX: S83.241A Other tear of medial meniscus, current injury, right knee, initial encounter (principal)
CPT/HCPCS: 99213; G2211

== ENCOUNTER → 2024-09-09 13:59 | Outpatient (BNVA) | payer OTHER, SELFPAY | PROVIDERS: PCP Nurse Practitioner Family; Visit Provider Orthopaedic Surgery | DX: S83.241A Other tear of medial meniscus, current injury, right knee, initial encounter (principal) | CPT/HCPCS: 99212 ==

== ENCOUNTER 2024-09-24 17:43 | Outpatient (REF) | payer OTHER, SELFPAY ==
--- NOTE | ~2024-09-24 | MR_ITS ---
EXAMINATION: MR KNEE WITHOUT CONTRAST RIGHT CLINICAL INFORMATION: Other tear of medial meniscus, current injury, right knee, initial encounter S83.400A. COMPARISON: None available. TECHNIQUE: MRI of the knee without contrast was performed using routine sequences on a high-field scanner. FINDINGS: MENISCI: Medial Meniscus: There is subtle increased signal in the posterior horn which appears to extend to the tibial articular surface on at least a single sagittal image 10 series 17. Findings suspicious for tear. Lateral Meniscus: Irregularity of the surface and intrasubstance signal throughout the meniscus anterior to posterior. This is most prominent in the body of the meniscus where the abnormal signal extends from the free edge to the periphery of the meniscus. Findings indicative of complex tearing of the meniscus. LIGAMENTS: Cruciate: Mucoid degeneration of the anterior cruciate ligament. PCL: Intact. Collateral: Intact. EXTENSOR MECHANISM: Intact. ARTICULAR CARTILAGE/BONE: Patellofemoral Compartment: Partially obscured by metallic artifact particularly the medial aspect of the patella. No definite arthrosis. Medial Compartment: Normal. Lateral Compartment: There is nonuniform up to high-grade cartilage loss involving the weightbearing portion of the compartment involving both the femoral and tibial articular surface. Marginal osteophytes noted. Findings indicative of [id number] osteoarthritis. JOINT FLUID AND BURSAE: Trace Sanchez's cyst. MR/MR knee RT wo con IMPRESSION: 1. Complex tear of the lateral meniscus. 2. Probable tear of the posterior horn of the medial meniscus. 3. Fhvm-ce-veyrtkmn osteoarthritis of the lateral compartment. 4. Mucoid degeneration of the anterior cruciate ligament. Electronically signed by: Eddie Kirby MD 09/27/2024 08:43 AM EST
== END 2024-09-24 17:44 | disposition home or self-care (01) ==
LOC: HO.MRI 17:43
PROVIDERS: PCP Nurse Practitioner Family; Visit Provider Orthopaedic Surgery
DX: S83.241A Other tear of medial meniscus, current injury, right knee, initial encounter (principal)
CPT/HCPCS: 73721

== ENCOUNTER 2024-10-05 13:41 | Outpatient (AMB) | payer OTHER, SELFPAY ==
--- NOTE | 2024-10-05 13:51 | MHC.OFFVIS ---
Intake Visit Reasons: OV- Right Knee MRI Review Intake Note: Socrates is a 54 year old male who presents with complaints of progressively worsening right knee pain and giving way. The patient did undergo left knee arthroscopic surgery on 05/22/2024. He denies any pain in his left knee. He states that he injured his right knee several years ago. He twisted his knee and had acute onset of pain. Since that time his symptoms have gotten worse in spite of continued non operative treatments. He has failed the last 6 weeks of conservative treatment which has consisted of physical therapy exercises, topical creams, Tylenol and anti-inflammatory medicines. He states that his right knee will give out several times per day. He has had cortisone injections in the past which gave him no relief. Dry Room Attendant Services: Dry Room Attendant Present (Chari ([id number])) Allergies lisinopril Adverse Reaction (Verified 10/05/24 13:55) Cough, headache PFSH Medical History Breast mass, left Breast mass, right Cyst of right breast Chronic constipation Bilateral leg cramps Sore throat Rib fractures Tachycardia Impacted cerumen, left ear Low back strain Morbid obesity Pre-op evaluation Elevated blood pressure reading Infected tooth Normal physical exam Asthma, mild intermittent, poorly controlled Poor historian Asthma attacks lasting more than 24 hours Left upper quadrant abdominal pain Asthma Surgical History Umbilical hernia, incarcerated (12/12/23) Subareolar mass of left breast History of excision of mass (07/31/23) History of surgery on arm Hx of cholecystectomy Family History Other Substance abuse Social History Household Members: Family Housing: House Alcohol intake: never Patient Tobacco Use Status: Former Tobacco user Tobacco use type: Cigarette e-Cigarette/Vaping Use: Never Used Second Hand Smoke Exposure: No service: No Current occupational status: employed and unemployed Current occupation: works nights Current occupational exposures/hazards: No Gender identity: Male Cognitive needs: No Hearing needs: Yes Vision needs: Yes Physical Exam Const Other: Well-nourished well-developed very friendly male awake alert and oriented x3 in no acute distress Extrem Other: Bilateral lower extremity examination shows good capillary refill, no skin lesions noted, normal sensation light touch Right knee examination shows a minimal effusion, minimal crepitus with range of motion, tenderness along his medial joint line, positive Olena's test, no instability Results Reviewed Results Reviewed: Standing full weight-bearing x-rays of the patient's right knee show mild diffuse joint space narrowing, no acute bony abnormalities MRI of the patient's right knee shows mild diffuse degenerative changes as well as tearing of the medial and lateral menisci, no acute bony abnormalities Assessment & Plan Assessment & Plan (1) Tear of medial meniscus of right knee: Code(s): S83.241A - Other tear of medial meniscus, current injury, right knee, initial encounter Category: Medical Plan Mr. Devaughn Parry presents with progressively worsening right knee pain and mechanical symptoms due to tearing of his medial and lateral menisci. I had a lengthy discussion with the patient regarding the treatment options. At this point he has failed continued non operative treatments. The risks and benefits of right knee arthroscopic surgery were discussed at length with the patient. The patient wishes to proceed with surgery. Surgery will most likely involve right knee diagnostic arthroscopy with arthroscopic partial medial and lateral meniscectomies. The patient does understand that he may not get 100% relief of his symptoms depending on the severity of his degenerative changes. He will be scheduled for next available date. He will follow-up as instructed. Feel free to call me at any time should questions regarding his orthopedic management arise. I spent 20 minutes in reviewing the patient's records and imaging studies, seeing the patient and documenting in the medical record. Coding Level of Care Code Est Pt Level 3 (24143) Complex EM visit Add On G2211 Diagnoses Tear of medial meniscus of right knee S83.241A
== END 2024-10-05 14:18 | disposition home or self-care (01) ==
PROVIDERS: PCP Nurse Practitioner Family; Visit Provider Orthopaedic Surgery
DX: S83.241A Other tear of medial meniscus, current injury, right knee, initial encounter (principal)
CPT/HCPCS: 99213; G2211

== ENCOUNTER → 2024-10-05 13:41 | Outpatient (BNVA) | payer OTHER, SELFPAY | PROVIDERS: PCP Nurse Practitioner Family; Visit Provider Orthopaedic Surgery | DX: S83.241A Other tear of medial meniscus, current injury, right knee, initial encounter (principal); S83.281A Other tear of lateral meniscus, current injury, right knee, initial encounter; X50.1XXA Overexertion from prolonged static or awkward postures, initial encounter; Y93.9 Activity, unspecified; Y92.9 Unspecified place or not applicable; Y99.9 Unspecified external cause status | CPT/HCPCS: 99212 ==

== ENCOUNTER → 2024-11-06 05:47 | Day surgery (SDC) | payer OTHER, SELFPAY ==
[2024-11-04 08:31] VITALS: BMI 46.8
--- NOTE | 2024-11-05 10:13 | HO.ANESPROP2 ---
HPI - Anesthesia Eval Consult details Narrative: 54yo M for Right Knee Arthroscopy with partial Medial and Lateral meniscectomy s\p same 05/2024 with GA-LMA 5 BMI 46 PMFSH Active Problems Active Problems: All Active Problems Tear of medial meniscus of right knee (Acute) Glossitis (Acute) Nocturnal hypoxemia (Acute) Severe obstructive sleep apnea-hypopnea syndrome (Acute) Dyslipidemia (Acute) Medically noncompliant (Acute) Influenza vaccination declined (Acute) Dandruff in adult (Acute) Chronic daily headache (Acute) Biceps tendon rupture, proximal (Acute) Renal cyst (Acute) Microalbuminuria (Acute) Prediabetes (Acute) Left knee pain (Acute) Blurred vision (Acute) Screen for colon cancer (Acute) Morbid obesity with BMI of 45.0-49.9, adult (Acute) Bilateral renal cysts (Acute) Fatty liver (Acute) Encounter for general adult medical examination without abnormal findings (Acute) Status post umbilical hernia repair, follow-up exam (Acute) Umbilical hernia, incarcerated (Acute 12/12/23) Hypertension (Acute) High cholesterol (Acute) COPD (chronic obstructive pulmonary disease) (Acute) Acid reflux (Acute) Asthma (Acute) Past Medical History Medical History Breast mass, left Breast mass, right Cyst of right breast Chronic constipation Bilateral leg cramps Sore throat Rib fractures Tachycardia Impacted cerumen, left ear Low back strain Morbid obesity Pre-op evaluation Elevated blood pressure reading Infected tooth Normal physical exam Asthma, mild intermittent, poorly controlled Poor historian Asthma attacks lasting more than 24 hours Left upper quadrant abdominal pain Asthma Family History Family History Other Substance abuse Family history of problems with anesthesia: No Surgical History Surgical History Umbilical hernia, incarcerated (12/12/23) Subareolar mass of left breast History of excision of mass (07/31/23) History of surgery on arm Hx of cholecystectomy History of Problems with Anesthesia: Yes (Very bad sore throat after LMA) Social History Social History Household Members: Family Housing: House 75 years or older and lives alone: No Alcohol intake: never Patient Tobacco Use Status: Former Tobacco user Tobacco use type: Cigarette e-Cigarette/Vaping Use: Never Used Second Hand Smoke Exposure: No service: No Current occupational status: employed and unemployed Current occupation: works nights Current occupational exposures/hazards: No Gender identity: Male Cognitive needs: No Hearing needs: Yes Vision needs: Yes Meds Allergies Allergy/AdvReac Type Severity Reaction Status Date / Time lisinopril AdvReac Cough, Verified 10/05/24 13:55 headache Active Medications: Current Medications Cefazolin Sodium/Dextrose (Ancef) 2 gm in 50 mls @ 100 mls/hr IV PREOP ONE Stop: 11/06/24 06:05 Home Medications ?Medication ?Instructions ?Recorded ?Confirmed ?Last Taken ?Type fluoxetine 20 mg capsule 20 mg PO DAILY 03/05/24 09/09/24 Unknown History lorazepam 0.5 mg tablet mg PO PRN 03/05/24 09/09/24 Unknown History buspirone 10 mg tablet 10 mg PO BID 04/02/24 09/09/24 Unknown History melatonin 3 mg tablet 3 mg PO BEDTIME 04/02/24 09/09/24 Unknown History trazodone 50 mg tablet 50 mg PO BEDTIME 04/02/24 09/09/24 Unknown History ziprasidone HCl 20 mg capsule 20 mg PO BID 04/02/24 09/09/24 Unknown History Exam Height,Weight and Vital Signs: Height 5 ft 3 in Weight 119.748 kg Pertinent Lab Results Pertinent Lab Results: Laboratory Tests 09/04/24 17:54 WBC 8.8 Hgb 15.0 Hct 46.6 Plt Count 304 Sodium 141 Potassium 4.5 Chloride 105 Carbon Dioxide 25 BUN 19 H Creatinine 1.19 Narrative Narrative: EKG 08/2024 Vent. Rate : 076 BPM Atrial Rate : 076 BPM P-R Int : 192 ms QRS Dur : 070 ms QT Int : 404 ms P-R-T Axes : 018 003 064 degrees QTc Int : 454 ms Normal sinus rhythm Nonspecific T wave abnormality Abnormal ECG When compared with ECG of 20-FEB-2024 11:25, No significant change was found Assessment and Plan Assessment Anesthesia Assessment: Chart Reviewed Final Anesthetic Review Family History of Problems with Anesthesia: No History of Problems with Anesthesia: Yes (Very bad sore throat after LMA)
[2024-11-06 06:25] VITALS: BP 173/110; PULSE 68; RESP 16; TEMP 36.9; O2SAT 95
[2024-11-06 06:34] VITALS: BMI 48.6
[2024-11-06 06:40] VITALS: BP 188/115
--- NOTE | 2024-11-06 07:42 | PC.NURSE ---
Addendum entered by Winter Peng RN 11/06/24 07:49: Patient advised to bring updated med list to next appointment. All belongings with patient, ride called. Original Note: Patient in preop. Exercise Physiologist Certified at bedside. BP elevated, see vital signs. Per patient It is always elevated, my doctors started me on a new medication 3 weeks ago but I haven't started it yet (medication name unknown) . BP retaken multiple times and remains elevated. Lung sounds diminished with expiratory wheezes throughout, patient extremely SOB on exertion when changing and mild SOB at rest. Patient took albuterol inhaler and nebulizer at home this morning. Patient currently does not wear CPAP mask at night, the mask doesn't fit right . Dr. Howard made aware at at bedside. Patient to be cancelled at this time. BP to be reevaluated by PCP, patient to make appointment. Patient to also start new med when he gets home. Dr. Luevano aware.
== END ==
LOC: HO.SSS 05:48
PROVIDERS: PCP Nurse Practitioner Family; Visit Provider Orthopaedic Surgery
DX: S83.242A Other tear of medial meniscus, current injury, left knee, initial encounter (principal); Z53.09 Procedure and treatment not carried out because of other contraindication; I10 Essential (primary) hypertension; R06.02 Shortness of breath; R06.2 Wheezing; Z91.199 Patient's noncompliance with other medical treatment and regimen due to unspecified reason; J44.9 Chronic obstructive pulmonary disease, unspecified; Z87.891 Personal history of nicotine dependence; Z79.899 Other long term (current) drug therapy
CPT/HCPCS: J0171; J2795; J3010

== ENCOUNTER 2024-11-11 03:00 | Emergency (ER) | payer OTHER, SELFPAY ==
--- NOTE | ~2024-11-11 | XR_ITS ---
CLINICAL HISTORY: sob 1 view chest x-ray Comparison: CR/SR - XR CHEST 2V - 03/26/24 21:20 EDT Findings: No consolidation or effusion. Normal size heart. No acute fracture. IMPRESSION: 1. No acute findings. This document has been electronically signed by: Desmond Vazquez MD, PHD on 11/11/2024 03:45:39
[2024-11-11 03:07] VITALS: BP 147/98; PULSE 113; RESP 22; TEMP 37.1; O2SAT 96; BMI 47.8
[2024-11-11 03:22] LABS: Basophils Absolute Auto 0.1 X10*3/uL (0.0-0.2); Basophils Percent Auto 0.9 % (0-2); Eosinophils Absolute Auto 0.2 X10*3/uL (0.0-0.4); Eosinophils Percent Auto 1.9 % (0-4); Hematocrit 46.6 % (42.0-52.0); Hemoglobin 15.3 g/dl (14.0-18.0); Imm Gran Abs Auto 0.05 X10*3/uL (0.00-0.03); Imm Gran Pct Auto 0.6 % (0.0-0.4); Lymphocytes Absolute Auto 0.6 X10*3/uL (1.2-4.9); Lymphocytes Percent Auto 8.3 % (20-40); MANUAL DIFF FLAG NO; Mean Corpuscular HGB Conc 32.8 g/dl (31.0-36.0); Mean Corpuscular Hemoglobin 25.3 pg (27.0-33.0); Mean Corpuscular Volume 77.2 fL (80.0-98.0); Mean Platelet Volume 9.1 fL (9.4-12.4); Monocytes Absolute Auto 0.9 X10*3/uL (0.1-1.2); Monocytes Percent Auto 11.4 % (2-11); Neutrophils Percent Auto 76.9 % (45-73); Platelet Count 280 X10*3/uL (160-400); Red Blood Count 6.04 X10*6/uL (4.60-5.80); Red Cell Distribution Width 15.9 % (11.0-16.0); White Blood Count 7.8 X10*3/uL (4.8-10.8)
[2024-11-11 03:45] LABS: Alanine Aminotransferase 38 U/L (0-40); Albumin Level 4.4 g/dL (3.5-5.0); Alkaline Phosphatase 86 U/L (39-117); Anion Gap 14 (12-20); Aspartate Amino Transferase 43 U/L (5-37); Bilirubin Total 0.4 mg/dL (0.0-1.0); Blood Urea Nitrogen 14 mg/dL (9-16); Calcium 9.6 mg/dL (8.4-10.2); Carbon Dioxide 23 mmol/L (22-29); Chloride 104 mmol/L (96-108); Creatinine Clr Calc Pharmacy 112.8; Estimated Glomerular Filt Rate > 60; Glucose Random 115 mg/dL (60-115); Potassium 4.2 mmol/L (3.3-5.1); Sodium 137 mmol/L (135-145); Total Protein 8.1 g/dL (6.5-8.0)
[2024-11-11 03:59] LABS: Influenza A PCR POSITIVE (Negative); Influenza B PCR NEGATIVE (Negative); Resp Syncy Virus RNA Qual PCR NEGATIVE (Negative); SARS COV2 PCR INHOUSE NEGATIVE (Negative)
[2024-11-11 05:21] VITALS: BP 174/106; PULSE 110; RESP 26; TEMP 37.7; O2SAT 92
--- NOTE | 2024-11-11 05:28 | ED_ITS ---
HPI - General Adult General Chief complaint: General Medical Stated complaint: fever, migraine Time Seen by Provider: 11/11/24 05:19 Source: patient Mode of arrival: ambulatory Limitations: no limitations History of Present Illness ED Provider: Dr. Rajwinder Hinton HPI narrative: Patient comes to emergency room complaining of 2 days of body aches, fever cough and wheezing. Patient states that he has not given himself a nebulization or an inhaler treatment, states he ran out of his meds. Patient denies chest pain. Patient complaining of generalized body aches Related Data Home Medications ?Medication ?Instructions ?Recorded ?Confirmed fluoxetine 20 mg capsule 20 mg PO DAILY 03/05/24 09/09/24 lorazepam 0.5 mg tablet mg PO PRN 03/05/24 09/09/24 buspirone 10 mg tablet 10 mg PO BID 04/02/24 09/09/24 melatonin 3 mg tablet 3 mg PO BEDTIME 04/02/24 09/09/24 trazodone 50 mg tablet 50 mg PO BEDTIME 04/02/24 09/09/24 ziprasidone HCl 20 mg capsule 20 mg PO BID 04/02/24 09/09/24 Previous Rx's ?Medication ?Instructions ?Recorded blood pressure kit-extra large #1 ea 11/20/22 miscellaneous medical supply See Rx Instructions miscellaneous 11/20/22 .COMPLEX #1 ea umeclidinium 62.5 mcg-vilanterol 1 inh inhalation DAILY 30 days #1 02/27/23 25 mcg/actuation powdr for ea inhalation (Anoro Ellipta) docusate sodium 100 mg capsule 200 mg (2 x 100 mg) PO BEDTIME 01/30/24 (Colace) #180 caps loratadine 10 mg tablet 10 mg PO DAILY #90 tabs 01/30/24 albuterol sulfate 1.25 mg/3 mL 1.25 mg (3 mL) inhalation Q4H 1 02/05/24 solution for nebulization month #540 mL ibuprofen 600 mg tablet 600 mg PO Q6H PRN pain #14 tabs 06/08/24 albuterol sulfate 90 mcg/actuation 2 inh inhalation Q6H PRN shortness 07/13/24 breath activated powder inhaler of breath or wheezing #1 ea salicylic acid 3 % shampoo (Selsun 1 appl topical 2XW PRN itching 07/14/24 Blue (salicylic acid)) #325 mL tramadol 50 mg tablet 50 mg PO Q12H PRN pain #30 tabs 07/22/24 atorvastatin 80 mg tablet 80 mg PO QPM #90 tabs 09/08/24 mecobalamin (vitamin B12) 1,000 2,000 mcg (2 x 1,000 mcg) PO DAILY 09/08/24 mcg chewable tablet (B12 Active) #180 tabs propranolol 60 mg capsule,24 60 mg PO BEDTIME #90 caps 09/08/24 hr,extended release pantoprazole 20 mg tablet,delayed 20 mg PO BID #60 tabs 10/08/24 release valsartan 80 mg tablet 80 mg PO BID 90 days #180 tabs 10/15/24 albuterol sulfate 90 mcg/actuation 2 puff inhalation Q4-6H PRN 11/11/24 aerosol inhaler shortness of breath or wheezing #8.5 grams benzonatate 100 mg capsule 100 mg PO TID PRN cough #12 caps 11/11/24 oseltamivir 75 mg capsule (Tamiflu) 75 mg PO BID #9 caps 11/11/24 prednisone 50 mg tablet 50 mg PO DAILY #4 tabs 11/11/24 Allergies Allergy/AdvReac Type Severity Reaction Status Date / Time lisinopril AdvReac Intermediate Cough, Verified 11/11/24 03:09 headache Review of Systems 2 Review of Systems: Constitutional : No Weight loss, complaining of fever and she No Night Sweats, complaining of fatigue and generalized malaise ENT/Mouth : No Hearing loss, No Ear Pain, No Nasal Congestion, No Sinus Pain, No Hoarseness, No sore throat, No Rhinorrhea, No Swallowing Difficulty Eyes: No Eye Pain, No Swelling, No Redness, No Foreign Body, No Discharge, No Vision Changes Cardiovascular : No Chest Pain, No SOB, No Dyspnea on Exertion, No Orthopnea, No Edema, No Palpitations Respiratory : Complaining of Cough, No Sputum, complaining Wheezing, No Smoke Exposure, No Dyspnea Gastrointestinal : No Nausea, No Vomiting, No Diarrhea, No Constipation, No abdominal Pain, No Hematochezia, No Melena Genitourinary : no irregular bleeding, No Dysuria, No Urinary Frequency, No Hematuria, No Urinary Incontinence, No Urgency, No Flank Pain, No Urinary Flow Changes, No Hesitancy Musculoskeletal : No joint pain, No Myalgias, No Joint Swelling Skin : No Skin Lesions, No rash Neuro : No Weakness, No Numbness, No Paresthesias, No Loss of Consciousness, No Dizziness, No Headache Psych : No Anxiety/Panic, No Depression, No SI/HI/AH/VH, No Social Issues, Heme/Lymph: No Bruising, No Bleeding,No Lymphadenopathy Endocrine : No Polyuria, No Polydipsia, No Temperature Intolerance [facility] Past Medical History Medical History (Updated 11/11/24 @ 05:33 by Rajwinder Hinton MD) Tachycardia Breast mass, left Bilateral leg cramps Sore throat Breast mass, right Cyst of right breast Impacted cerumen, left ear Low back strain Morbid obesity Rib fractures Pre-op evaluation Elevated blood pressure reading Infected tooth Chronic constipation Normal physical exam Asthma, mild intermittent, poorly controlled Poor historian Asthma attacks lasting more than 24 hours Left upper quadrant abdominal pain Asthma Surgical History (Updated 11/06/24 @ 06:31 by Winter Peng RN) History of arthroscopic knee surgery Subareolar mass of left breast Umbilical hernia, incarcerated (12/12/23) History of excision of mass (07/31/23) History of surgery on arm Hx of cholecystectomy Family History Family History Other Substance abuse Social History Social History Household Members: Family Housing: House Are you a primary medical care administrator to a significant other at home: No Do you presently have visiting nurse or other home services: No Alcohol intake: never Patient Tobacco Use Status: Former Tobacco user Tobacco use type: Cigarette Cigarette Packs Per Day: 4 Cigarettes Per Day: 80.0 Years Smoked: 30 e-Cigarette/Vaping Use: Never Used Second Hand Smoke Exposure: No Advance Directives: No Advance Directives Information Provided: Yes Do you have a plan to hurt others: No Plan service: No Current occupational status: employed and unemployed Current occupation: works nights Current occupational exposures/hazards: No Gender identity: Male Cognitive needs: No Hearing needs: Yes Vision needs: Yes Physical Exam ED Vital Signs: Vital Signs - 24 hr 11/11/24 03:07 11/11/24 05:21 Temperature 98.7 F 99.8 F Pulse Rate 113 H 110 H Respiratory Rate 22 H 26 H Blood Pressure 147/98 H 174/106 H Pulse Oximetry 96 92 Oxygen Delivery Method Room Air Room Air BMI result Body Mass Index 47.8 Const Other: Appearance: Alert. Oriented X3. No acute distress. Eyes: Pupils equal, round and reactive to light. ENT: Pharynx normal. Neck: Normal inspection. Neck supple. No lymph nodes noted. No crepitus CVS: Normal heart rate and rhythm. Pulses normal. Normal S1 and S2 Respiratory: No respiratory distress. Mild bilateral wheezing, No rales Abdomen: Soft and nontender. No rigidity. No distention. Skin: Skin warm and dry. Normal skin color. Normal skin turgor. Extremities: No lower extremity edema. No Lacerations. No Rash Neuro: Oriented X 3. No motor deficit. No sensory deficit. Moving all extremities. No slurred speech. CN 2 through 12 grossly intact Psych: calm, cooperative, normal affect Medical Decision Making Medical Decision Making [facility] Narrative: Patient wheezing a bit, fairly good air movement, normal oxygen saturation. Patient was provided with nebulization treatment, p.o. prednisone in the 1st dose of Tamiflu. My interpretation of labs: Patient's hematology and chemistry do not show any acute abnormality, influenza test positive Chest x-ray no acute abnormality Differential Diagnosis Differential Diagnoses: The differential diagnosis associated with the presentation includes (Asthma exacerbation, COVID, influenza, pneumonia) Lab Data [facility] Lab Attestation statement: I reviewed the patient's lab results. 11/11/24 03:16 11/11/24 03:16 Labs: Lab Results 11/11/24 Range/Units 03:16 WBC 7.8 (4.8-10.8) X10*3/uL RBC 6.04 H (4.60-5.80) X10*6/uL Hgb 15.3 (14.0-18.0) g/dl Hct 46.6 (42.0-52.0) % MCV 77.2 L (80.0-98.0) fL MCH 25.3 L (27.0-33.0) pg MCHC 32.8 (31.0-36.0) g/dl RDW 15.9 (11.0-16.0) % Plt Count 280 (160-400) X10*3/uL MPV 9.1 L (9.4-12.4) fL Immature Gran % (Auto) 0.6 H (0.0-0.4) % Neut % (Auto) 76.9 H (45-73) % Lymph % (Auto) 8.3 L (20-40) % [place] % (Auto) 11.4 H (2-11) % Eos % (Auto) 1.9 (0-4) % Baso % (Auto) 0.9 (0-2) % Lymph # (Auto) 0.6 L (1.2-4.9) X10*3/uL [place] # (Auto) 0.9 (0.1-1.2) X10*3/uL Eos # (Auto) 0.2 (0.0-0.4) X10*3/uL Baso # (Auto) 0.1 (0.0-0.2) X10*3/uL Abs Immat Gran (auto) 0.05 H (0.00-0.03) X10*3/uL Absolute Neuts (auto) 6.0 (2.0-8.3) x10*3/uL Absolute Nucleated RBC 0.000 (0.0-0.012) X10*3/uL Nucleated RBC % (auto) 0.0 (0.0-0.2) /100WBC Sodium 137 (135-145) mmol/L Potassium 4.2 (3.3-5.1) mmol/L Chloride 104 (96-108) mmol/L Carbon Dioxide 23 (22-29) mmol/L Anion Gap 14 (12-20) BUN 14 (9-16) mg/dL Creatinine 0.89 (0.5-1.4) mg/dL Estim Creat Clear Calc 112.8 Estimated GFR > 60 Random Glucose 115 (60-115) mg/dL Calcium 9.6 (8.4-10.2) mg/dL Total Bilirubin 0.4 (0.0-1.0) mg/dL AST 43 H (5-37) U/L ALT 38 (0-40) U/L Alkaline Phosphatase 86 (39-117) U/L Total Protein 8.1 H (6.5-8.0) g/dL Albumin 4.4 (3.5-5.0) g/dL Influenza Type A (PCR) POSITIVE A (Negative) Influenza Type B (PCR) NEGATIVE (Negative) RSV RNA Qual (PCR) NEGATIVE (Negative) SARS-CoV-2 RNA (RT-PCR) NEGATIVE (Negative) Independent Interpretation I performed an independent interpretation of an: Plain X-Ray Radiology Impression Discussion of test interpretation with radiology: I have reviewed the radiologist's reading. Radiologist Impression: No consolidation or effusion. Normal size heart. No acute fracture. IMPRESSION: 1. No acute findings. Discharge Plan Discharge Clinical Impression: Influenza A, Asthma exacerbation Patient Disposition: Home, Self-Care Instructions: Asthma (ED), Influenza (ED) Additional Instructions: Please follow-up with your primary care physician tomorrow. If you have any worsening or new symptoms, please return to the emergency room or call 911 Prescriptions: New oseltamivir [Tamiflu] 75 mg capsule 75 mg PO BID Qty: 9 0RF prednisone 50 mg tablet 50 mg PO DAILY Qty: 4 0RF albuterol sulfate 90 mcg/actuation HFA aerosol inhaler 2 puff inhalation Q4-6H PRN (Reason: shortness of breath or wheezing) Qty: 8.5 1RF benzonatate 100 mg capsule 100 mg PO TID PRN (Reason: cough) Qty: 12 0RF No Action Anoro Ellipta 62.5-25 mcg/actuation blister with device 1 inh inhalation DAILY 30 Days Qty: 1 6RF albuterol sulfate 1.25 mg/3 mL solution for nebulization 1.25 mg inhalation Q4H 30 Days Qty: 540 1RF pantoprazole 20 mg tablet,delayed release (DR/EC) 20 mg PO BID Qty: 60 2RF valsartan 80 mg tablet 80 mg PO BID 90 Days Qty: 180 0RF ibuprofen 600 mg tablet 600 mg PO Q6H PRN (Reason: pain) Qty: 14 0RF docusate sodium [Colace] 100 mg capsule 200 mg PO BEDTIME Qty: 180 2RF loratadine 10 mg tablet 10 mg PO DAILY Qty: 90 0RF (DME) blood pressure kit-extra large Kit See Rx Instructions .Route Qty: 1 0RF Rx Instructions: As directed miscellaneous medical supply Misc See Rx Instructions miscellaneous .COMPLEX Qty: 1 0RF Rx Instructions: air purifier for personal use as directed; ziprasidone HCl 20 mg capsule 20 mg PO BID buspirone 10 mg tablet 10 mg PO BID trazodone 50 mg tablet 50 mg PO BEDTIME melatonin 3 mg tablet 3 mg PO BEDTIME tramadol 50 mg tablet 50 mg PO Q12H PRN (Reason: pain) Qty: 30 0RF albuterol sulfate 90 mcg/actuation aerosol powdr breath activated 2 inh inhalation Q6H PRN (Reason: shortness of breath or wheezing) Qty: 1 0RF Selsun Blue (salicylic acid) 3 % shampoo 1 appl topical 2XW PRN (Reason: itching) Qty: 325 12RF Rx Instructions: leave on for 8 to14 hrs before washing off lorazepam 0.5 mg tablet PO PRN fluoxetine 20 mg capsule 20 mg PO DAILY propranolol 60 mg capsule,extended release 24 hr 60 mg PO BEDTIME Qty: 90 2RF atorvastatin 80 mg tablet 80 mg PO QPM Qty: 90 2RF mecobalamin (vitamin B12) [B12 Active] 1,000 mcg tablet,chewable 2,000 mcg PO DAILY Qty: 180 3RF Print Language: Mohawk
[2024-11-11] MEDS: Oseltamivir Phosphate 75 MG CAPSULE PO (05:34)
[2024-11-11] MEDS: predniSONE 20 MG TABLET 60 MG PO (05:34)
--- NOTE | 2024-11-11 05:38 | PC.NURSE ---
lung sounds diminished exp wheezes.
[2024-11-11] MEDS: Albuterol Sulfate 7.5 MG, Albuterol Sulfate (0.083%) 2.5 MG 10 MG INHALE (05:48)
[2024-11-11 05:49] VITALS: PULSE 116; RESP 18; O2SAT 95
[2024-11-11 06:16] VITALS: BP 167/94; PULSE 126; RESP 22; O2SAT 93
--- NOTE | 2024-11-11 06:30 | PC.NURSE ---
pt was resting and laying flat when pt was sat upright pt started to cough giving himself a headache and spit up clear sputum.
[2024-11-11 06:36] VITALS: BP 148/96; PULSE 128; RESP 20; TEMP 37.6; O2SAT 93
[2024-11-11 06:37] VITALS: BP 148/96; PULSE 128; RESP 20; TEMP 37.6; O2SAT 93
== END 2024-11-11 06:38 | disposition home or self-care (01) ==
PROVIDERS: Emergency Provider Emergency Medicine
DX: J10.1 Influenza due to other identified influenza virus with other respiratory manifestations (principal); J45.901 Unspecified asthma with (acute) exacerbation; R05.9 Cough, unspecified; R06.02 Shortness of breath
CPT/HCPCS: 0241U; 36415; 71045; 80053; 85025; 94640; 99284

== ENCOUNTER → 2024-11-11 03:05 | Outpatient (BNV) | payer OTHER, SELFPAY | PROVIDERS: Visit Provider General Practice | DX: R06.02 Shortness of breath (principal) | CPT/HCPCS: 71045 ==

== ENCOUNTER 2024-11-19 14:25 | Outpatient (AMB) | payer OTHER, SELFPAY ==
--- NOTE | 2024-11-19 14:32 | MHC.OFFVIS ---
Vital Signs 11/19/24 14:33 Height 5 ft 3 in Weight 266 lb BMI 47.1 BP 106/78 Blood Pressure Location Rt brachial Position Sitting Pulse 95 Pulse Source Doppler Pulse Oximetry (%) 94 Oxygen Delivery Method Room Air Intake Visit Reasons: Asthma /Pre op clearance Project Administrator Required: Yes Project Administrator Name: Tracy Fisher Ebony Allergies lisinopril Adverse Reaction (Intermediate, Verified 11/19/24 14:35) Cough, headache HPI HPI Asthma /Pre op clearance: Details: 54-year-old gentleman, former 75 pack-year smoker, quit 2021, followed for underlying COPD. Patient was lost to follow-up for the last 2 years, now he presents for pulmonary preoperative evaluation for bariatric surgery. Patient has been relying on duo nebs and albuterol MDI to control her symptoms. He denies recent exacerbations. He did have a viral infection several weeks prior from which she has recovered. [facility] Medical History (Updated 11/19/24 @ 14:53 by Stanley Sidhu MD) Tachycardia Breast mass, left Bilateral leg cramps Sore throat Breast mass, right Cyst of right breast Impacted cerumen, left ear Low back strain Morbid obesity Rib fractures Pre-op evaluation Elevated blood pressure reading Infected tooth Chronic constipation Normal physical exam Asthma, mild intermittent, poorly controlled Poor historian Asthma attacks lasting more than 24 hours Left upper quadrant abdominal pain Asthma Surgical History (Updated 11/06/24 @ 06:31 by Winter Peng RN) History of arthroscopic knee surgery Subareolar mass of left breast Umbilical hernia, incarcerated (12/12/23) History of excision of mass (07/31/23) History of surgery on arm Hx of cholecystectomy Family History Other Substance abuse Social History Household Members: Family Housing: House Are you a primary health care specialist to a significant other at home: No Do you presently have visiting nurse or other home services: No 75 years or older and lives alone: No Alcohol intake: never Patient Tobacco Use Status: Former Tobacco user Tobacco use type: Cigarette Cigarette Packs Per Day: 4 Cigarettes Per Day: 80.0 Years Smoked: 30 e-Cigarette/Vaping Use: Never Used Second Hand Smoke Exposure: No service: No Current occupational status: employed and unemployed Current occupation: works nights Current occupational exposures/hazards: No Gender identity: Male Cognitive needs: No Hearing needs: Yes Vision needs: Yes Review of Systems Const Denies daytime sleepiness, Denies excessive sweating, Denies fatigue, Denies fever(s), Denies lethargy, Denies malaise, Denies night sweats, Denies snoring and Denies weight loss Eyes Denies blurry vision and Denies itchy eyes ENT Denies nasal congestion, Denies post nasal drip, Denies sinus pain, Denies sinus pressure and Denies other ( Thrush) Card Denies chest pain, Denies pedal edema, Denies dyspnea, Denies orthopnea and Denies paroxysmal nocturnal dyspnea Resp Denies cough, Denies hemoptysis, Denies excessive phlegm production, Denies dyspnea, Denies snoring and Denies wheezing GI Denies abdominal pain and Denies heartburn Musc Denies myalgias, Denies arthralgias and Denies joint swelling Skin/Breast Denies rash Neuro Denies memory loss and Denies seizure-like activity Psych Denies abnormal sleep pattern, Denies anxiety and Denies memory loss Endo Denies excessive sweating, Denies fatigue and Denies heat intolerance Grupo/Lymph Denies easy bruising Aller/Immun Denies itchy eyes, Denies seasonal rhinorrhea and Denies wheezing Physical Exam Vital Signs: Last Vital Signs Pulse 95 11/19/24 14:33 BP 106/78 11/19/24 14:33 Pulse Ox 94 11/19/24 14:33 Oxygen Delivery Method Room Air 11/19/24 14:33 BMI result Body Mass Index 47.1 Const General: no acute distress and alert Nutritional Appearance: obese Orientation/consciousness: Other orientation findings ( oriented) HEENT Head: Yes atraumatic Eyes General: appearance normal, both eyes and all related structures Sclerae: sclerae normal EOM: EOMs intact bilaterally Neck Neck: Yes supple Lymphatic: no lymphadenopathy noted Resp Effort & Inspection: normal respiratory effort and no use of accessory muscles Auscultation: clear to auscultation bilaterally Cardio Rate: regular rate Rhythm: regular rhythm Heart sounds: no gallops, no murmurs and no rubs Skin General skin exam: other ( warm) Extrem General: No clubbing, No cyanosis and No edema Assessment & Plan Assessment & Plan (1) COPD (chronic obstructive pulmonary disease): Code(s): J44.9 - Chronic obstructive pulmonary disease, unspecified Category: Medical Qualifiers: COPD type: chronic bronchitis Chronic bronchitis type: simple Qualified Code(s): J41.0 - Simple chronic bronchitis Plan: Underlying COPD with reasonable control on albuterol MDI and nebs. Will replace nebulized component with Stiolto. (2) Encounter for preoperative pulmonary examination: Code(s): Z01.811 - Encounter for preprocedural respiratory examination Category: Medical Plan: At this time patient is at low risk for pulmonary perioperative complications for the proposed bariatric procedure under general anesthesia. Secondary to underlying obstructive sleep apnea, consider extubation to BiPAP. Coding Level of Care Code Est Pt Level 4 (37436) Diagnoses Simple chronic bronchitis J41.0 COPD type: chronic bronchitis Chronic bronchitis type: simple Encounter for preoperative pulmonary examination Z01.811
[2024-11-19 14:33] VITALS: BP 106/78; PULSE 95; O2SAT 94; BMI 47.1
== END 2024-11-19 14:50 | disposition home or self-care (01) ==
PROVIDERS: PCP Nurse Practitioner Family; Visit Provider Internal Medicine Pulmonary Disease
DX: J41.0 Simple chronic bronchitis (principal); Z01.811 Encounter for preprocedural respiratory examination
CPT/HCPCS: 99214

== ENCOUNTER → 2024-11-19 14:25 | Outpatient (BNVA) | payer OTHER, SELFPAY | PROVIDERS: PCP Nurse Practitioner Family; Visit Provider Internal Medicine Pulmonary Disease | DX: Z01.811 Encounter for preprocedural respiratory examination (principal); J41.0 Simple chronic bronchitis | CPT/HCPCS: 99212 ==

== ENCOUNTER 2024-11-26 10:44 | Emergency (ER) | payer OTHER, SELFPAY ==
--- NOTE | 2024-11-26 11:20 | ED_ITS ---
HPI - General Adult General Chief complaint: Abdominal Pain Stated complaint: diarrhea 3 weeks abd pain Related Data Home Medications ?Medication ?Instructions ?Recorded ?Confirmed fluoxetine 20 mg capsule 20 mg PO DAILY 03/05/24 11/30/24 lorazepam 0.5 mg tablet mg PO PRN 03/05/24 11/30/24 buspirone 10 mg tablet 10 mg PO BID 04/02/24 11/30/24 melatonin 3 mg tablet 3 mg PO BEDTIME 04/02/24 11/30/24 trazodone 50 mg tablet 50 mg PO BEDTIME 04/02/24 11/30/24 ziprasidone HCl 20 mg capsule 20 mg PO BID 04/02/24 11/30/24 Previous Rx's ?Medication ?Instructions ?Recorded blood pressure kit-extra large #1 ea 11/20/22 miscellaneous medical supply See Rx Instructions miscellaneous 11/20/22 .COMPLEX #1 ea docusate sodium 100 mg capsule 200 mg (2 x 100 mg) PO BEDTIME 01/30/24 (Colace) #180 caps loratadine 10 mg tablet 10 mg PO DAILY #90 tabs 01/30/24 albuterol sulfate 1.25 mg/3 mL 1.25 mg (3 mL) inhalation Q4H 1 02/05/24 solution for nebulization month #540 mL ibuprofen 600 mg tablet 600 mg PO Q6H PRN pain #14 tabs 06/08/24 salicylic acid 3 % shampoo (Selsun 1 appl topical 2XW PRN itching 07/14/24 Blue (salicylic acid)) #325 mL tramadol 50 mg tablet 50 mg PO Q12H PRN pain #30 tabs 07/22/24 atorvastatin 80 mg tablet 80 mg PO QPM #90 tabs 09/08/24 mecobalamin (vitamin B12) 1,000 2,000 mcg (2 x 1,000 mcg) PO DAILY 09/08/24 mcg chewable tablet (B12 Active) #180 tabs propranolol 60 mg capsule,24 60 mg PO BEDTIME #90 caps 09/08/24 hr,extended release pantoprazole 20 mg tablet,delayed 20 mg PO BID #60 tabs 10/08/24 release valsartan 80 mg tablet 80 mg PO BID 90 days #180 tabs 10/15/24 albuterol sulfate 90 mcg/actuation 2 puff inhalation Q4-6H PRN 11/11/24 aerosol inhaler shortness of breath or wheezing #8.5 grams benzonatate 100 mg capsule 100 mg PO TID PRN cough #12 caps 11/11/24 tiotropium 2.5 mcg-olodaterol 2.5 2 puff inhalation DAILY #4 grams 11/19/24 mcg/actuation mist for inhalation (Stiolto Respimat) Allergies Allergy/AdvReac Type Severity Reaction Status Date / Time lisinopril AdvReac Intermediate Cough, Verified 11/30/24 10:28 headache PMFSH Past Medical History Medical History (Updated 12/01/24 @ 14:06 by Sarah Guzman NP) Tachycardia Breast mass, left Bilateral leg cramps Sore throat Breast mass, right Cyst of right breast Impacted cerumen, left ear Low back strain Morbid obesity Rib fractures Pre-op evaluation Elevated blood pressure reading Infected tooth Chronic constipation Normal physical exam Asthma, mild intermittent, poorly controlled Poor historian Asthma attacks lasting more than 24 hours Left upper quadrant abdominal pain Asthma Surgical History History of arthroscopic knee surgery Subareolar mass of left breast Umbilical hernia, incarcerated (12/12/23) History of excision of mass (07/31/23) History of surgery on arm Hx of cholecystectomy Family History Family History Other Substance abuse Social History Social History Household Members: Family Housing: House Are you a primary healthcare recruiter to a significant other at home: No Do you presently have visiting nurse or other home services: No 75 years or older and lives alone: No Alcohol intake: never Patient Tobacco Use Status: Former Tobacco user Tobacco use type: Cigarette Cigarette Packs Per Day: 4 Cigarettes Per Day: 80.0 Years Smoked: 30 e-Cigarette/Vaping Use: Never Used Second Hand Smoke Exposure: No service: No Current occupational status: employed and unemployed Current occupation: works nights Current occupational exposures/hazards: No Gender identity: Male Cognitive needs: No Hearing needs: Yes Vision needs: Yes Physical Exam ED Vital Signs: BMI result Body Mass Index 45.5 Course Course Course Narrative: This is a rapid medical exam performed by Hema Guzman NP: Additional HPI, ROS, PE not included below will be deferred to primary provider. Patient is a 54-year-old male with history of MAEGAN, dyslipidemia, obesity, HTN, COPD, high cholesterol, asthma presenting with complaint of diarrhea for 2 weeks. Also complains of sore throat, lower abdominal pain, worse after eating. Had the flu around 3 weeks ago. Denies recent fevers. Plan: strep and viral swabs, labs Medical Decision Making Lab Data 11/26/24 11:47 11/26/24 11:47 Labs: Lab Results 11/26/24 Range/Units 11:47 WBC 7.4 (4.8-10.8) X10*3/uL RBC 5.97 H (4.60-5.80) X10*6/uL Hgb 15.2 (14.0-18.0) g/dl Hct 46.9 (42.0-52.0) % MCV 78.6 L (80.0-98.0) fL MCH 25.5 L (27.0-33.0) pg MCHC 32.4 (31.0-36.0) g/dl RDW 16.7 H (11.0-16.0) % Plt Count 301 (160-400) X10*3/uL MPV 9.2 L (9.4-12.4) fL Immature Gran % (Auto) 0.5 H (0.0-0.4) % Neut % (Auto) 52.5 (45-73) % Lymph % (Auto) 33.2 (20-40) % [place] % (Auto) 9.7 (2-11) % Eos % (Auto) 3.4 (0-4) % Baso % (Auto) 0.7 (0-2) % Lymph # (Auto) 2.4 (1.2-4.9) X10*3/uL [place] # (Auto) 0.7 (0.1-1.2) X10*3/uL Eos # (Auto) 0.3 (0.0-0.4) X10*3/uL Baso # (Auto) 0.1 (0.0-0.2) X10*3/uL Abs Immat Gran (auto) 0.04 H (0.00-0.03) X10*3/uL Absolute Neuts (auto) 3.9 (2.0-8.3) x10*3/uL Absolute Nucleated RBC 0.000 (0.0-0.012) X10*3/uL Nucleated RBC % (auto) 0.0 (0.0-0.2) /100WBC Sodium 140 (135-145) mmol/L Potassium 4.6 (3.3-5.1) mmol/L Chloride 113 H (96-108) mmol/L Carbon Dioxide 21 L (22-29) mmol/L Anion Gap 11 L (12-20) BUN 17 H (9-16) mg/dL Creatinine 0.75 (0.5-1.4) mg/dL Estim Creat Clear Calc 130.0 Estimated GFR > 60 Random Glucose 113 (60-115) mg/dL Calcium 9.6 (8.4-10.2) mg/dL Magnesium 1.7 (1.6-2.6) mg/dL Total Bilirubin 0.5 (0.0-1.0) mg/dL AST 29 (5-37) U/L ALT 73 H (0-40) U/L Alkaline Phosphatase 79 (39-117) U/L Total Protein 7.5 (6.5-8.0) g/dL Albumin 4.1 (3.5-5.0) g/dL Influenza Type A (PCR) NEGATIVE (Negative) Influenza Type B (PCR) NEGATIVE (Negative) RSV RNA Qual (PCR) NEGATIVE (Negative) SARS-CoV-2 RNA (RT-PCR) NEGATIVE (Negative) S. pyogenes GrpA HAN Negative (Negative) Discharge Plan Discharge Clinical Impression: Abdominal pain Patient Disposition: Left W/O Completing Treatment Prescriptions: No Action albuterol sulfate 1.25 mg/3 mL solution for nebulization 1.25 mg inhalation Q4H 30 Days Qty: 540 1RF pantoprazole 20 mg tablet,delayed release (DR/EC) 20 mg PO BID Qty: 60 2RF valsartan 80 mg tablet 80 mg PO BID 90 Days Qty: 180 0RF ibuprofen 600 mg tablet 600 mg PO Q6H PRN (Reason: pain) Qty: 14 0RF albuterol sulfate 90 mcg/actuation HFA aerosol inhaler 2 puff inhalation Q4-6H PRN (Reason: shortness of breath or wheezing) Qty: 8.5 1RF benzonatate 100 mg capsule 100 mg PO TID PRN (Reason: cough) Qty: 12 0RF docusate sodium [Colace] 100 mg capsule 200 mg PO BEDTIME Qty: 180 2RF loratadine 10 mg tablet 10 mg PO DAILY Qty: 90 0RF (DME) blood pressure kit-extra large Kit See Rx Instructions .Route Qty: 1 0RF Rx Instructions: As directed miscellaneous medical supply Misc See Rx Instructions miscellaneous .COMPLEX Qty: 1 0RF Rx Instructions: air purifier for personal use as directed; ziprasidone HCl 20 mg capsule 20 mg PO BID buspirone 10 mg tablet 10 mg PO BID trazodone 50 mg tablet 50 mg PO BEDTIME melatonin 3 mg tablet 3 mg PO BEDTIME tramadol 50 mg tablet 50 mg PO Q12H PRN (Reason: pain) Qty: 30 0RF Selsun Blue (salicylic acid) 3 % shampoo 1 appl topical 2XW PRN (Reason: itching) Qty: 325 12RF Rx Instructions: leave on for 8 to14 hrs before washing off Stiolto Respimat 2.5-2.5 mcg/actuation mist 2 puff inhalation DAILY Qty: 4 6RF lorazepam 0.5 mg tablet PO PRN fluoxetine 20 mg capsule 20 mg PO DAILY propranolol 60 mg capsule,extended release 24 hr 60 mg PO BEDTIME Qty: 90 2RF atorvastatin 80 mg tablet 80 mg PO QPM Qty: 90 2RF mecobalamin (vitamin B12) [B12 Active] 1,000 mcg tablet,chewable 2,000 mcg PO DAILY Qty: 180 3RF Discharge Date/Time: 11/26/24 20:29
[2024-11-26 11:21] VITALS: BP 125/81; PULSE 83; RESP 16; TEMP 37; O2SAT 97; BMI 45.5
[2024-11-26 11:53] LABS: MANUAL DIFF FLAG NO
[2024-11-26 11:56] LABS: Basophils Absolute Auto 0.1 X10*3/uL (0.0-0.2); Basophils Percent Auto 0.7 % (0-2); Eosinophils Absolute Auto 0.3 X10*3/uL (0.0-0.4); Eosinophils Percent Auto 3.4 % (0-4); Hematocrit 46.9 % (42.0-52.0); Hemoglobin 15.2 g/dl (14.0-18.0); Imm Gran Abs Auto 0.04 X10*3/uL (0.00-0.03); Imm Gran Pct Auto 0.5 % (0.0-0.4); Lymphocytes Absolute Auto 2.4 X10*3/uL (1.2-4.9); Lymphocytes Percent Auto 33.2 % (20-40); Mean Corpuscular HGB Conc 32.4 g/dl (31.0-36.0); Mean Corpuscular Hemoglobin 25.5 pg (27.0-33.0); Mean Corpuscular Volume 78.6 fL (80.0-98.0); Mean Platelet Volume 9.2 fL (9.4-12.4); Monocytes Absolute Auto 0.7 X10*3/uL (0.1-1.2); Monocytes Percent Auto 9.7 % (2-11); Neutrophils Absolute Auto 3.9 x10*3/uL (2.0-8.3); Neutrophils Percent Auto 52.5 % (45-73); Platelet Count 301 X10*3/uL (160-400); Red Blood Count 5.97 X10*6/uL (4.60-5.80); Red Cell Distribution Width 16.7 % (11.0-16.0); White Blood Count 7.4 X10*3/uL (4.8-10.8)
[2024-11-26 12:04] LABS: IDNOW Serial# 58CA691E; Strep A Nucleic Acid Negative (Negative)
[2024-11-26 12:11] LABS: Alanine Aminotransferase 73 U/L (0-40); Albumin Level 4.1 g/dL (3.5-5.0); Alkaline Phosphatase 79 U/L (39-117); Anion Gap 11 (12-20); Aspartate Amino Transferase 29 U/L (5-37); Bilirubin Total 0.5 mg/dL (0.0-1.0); Blood Urea Nitrogen 17 mg/dL (9-16); Calcium 9.6 mg/dL (8.4-10.2); Carbon Dioxide 21 mmol/L (22-29); Chloride 113 mmol/L (96-108); Estimated Glomerular Filt Rate > 60; Glucose Random 113 mg/dL (60-115); Magnesium 1.7 mg/dL (1.6-2.6); Potassium 4.6 mmol/L (3.3-5.1); Sodium 140 mmol/L (135-145); Total Protein 7.5 g/dL (6.5-8.0)
[2024-11-26 12:41] LABS: Influenza A PCR NEGATIVE (Negative); Influenza B PCR NEGATIVE (Negative); Resp Syncy Virus RNA Qual PCR NEGATIVE (Negative); SARS COV2 PCR INHOUSE NEGATIVE (Negative)
== END 2024-11-26 20:29 | disposition left against medical advice (07) ==
LOC: HO.ED 20:23
PROVIDERS: Registered Nurse Emergency; Emergency Provider Emergency Medicine
DX: R10.2 Pelvic and perineal pain (principal); R19.7 Diarrhea, unspecified; Z03.818 Encounter for observation for suspected exposure to other biological agents ruled out; Z87.891 Personal history of nicotine dependence
CPT/HCPCS: 0241U; 80053; 83735; 85025; 87651; 99281; 99283

== ENCOUNTER 2024-11-30 10:23 | Outpatient (AMB) | payer OTHER, SELFPAY ==
--- NOTE | 2024-11-30 10:26 | HO.NEPHOV ---
Vital Signs 11/30/24 10:27 Height 5 ft 3 in Weight 266 lb BMI 47.1 BP 122/86 Blood Pressure Location Lt brachial Position Sitting Pulse 88 Pulse Source Pulse Oximeter Pulse Oximetry (%) 95 Oxygen Delivery Method Room Air Intake Visit Reasons: Hypertension/ Conf Algebraist Required: Yes Algebraist Name: [email or web address] [id number] Accompanied by: Self / Same As Patient Allergies lisinopril Adverse Reaction (Intermediate, Verified 11/30/24 10:28) Cough, headache Medication List - Last Reconciled 11/30/24 by Jorge Luis Acosta MD albuterol sulfate 90 mcg/actuation 2 puffs inhalation Q4-6H PRN albuterol sulfate 1.25 mg (3 mL) inhalation Q4H 1 month atorvastatin 80 mg PO QPM benzonatate 100 mg PO TID PRN blood pressure kit-extra large As directed buspirone 10 mg PO BID docusate sodium (Colace) 200 mg (2 x 100 mg) PO BEDTIME fluoxetine 20 mg PO DAILY ibuprofen 600 mg PO Q6H PRN loratadine 10 mg PO DAILY lorazepam mg PO PRN mecobalamin (vitamin B12) (B12 Active) 2,000 mcg (2 x 1,000 mcg) PO DAILY melatonin 3 mg PO BEDTIME miscellaneous medical supply air purifier for personal use as directed; pantoprazole 20 mg PO BID propranolol ER 60 mg PO BEDTIME salicylic acid 3% (Selsun Blue (salicylic acid)) 1 appl topical 2XW PRN tiotropium-olodaterol 2.5-2.5 mcg/actuation (Stiolto Respimat) 2 puffs inhalation DAILY tramadol 50 mg PO Q12H PRN trazodone 50 mg PO BEDTIME valsartan 80 mg PO BID 90 days ziprasidone HCl 20 mg PO BID HPI Comments Details: 53 yr old man with obesity referred for microalbuminuria and renal cyst Moved from [place] about 3 years ago and has gained 40 lbs since Does not exercise h/o Smoking from age 19 to 46 04/02/24 ;He stopped taking Amlodipine due to headache 06/04/24 ; stopped antihypertensives because he ran out !! 07/31/24 ; Claims to be taking all medications Was supposed to be on Valsartan, i do not see it on the list Algebraist Service was used 11/30/24 ; Tolerating Valsartan. No new issues [facility] Medical History (Updated 11/19/24 @ 14:53 by Stanley Sidhu MD) Tachycardia Breast mass, left Bilateral leg cramps Sore throat Breast mass, right Cyst of right breast Impacted cerumen, left ear Low back strain Morbid obesity Rib fractures Pre-op evaluation Elevated blood pressure reading Infected tooth Chronic constipation Normal physical exam Asthma, mild intermittent, poorly controlled Poor historian Asthma attacks lasting more than 24 hours Left upper quadrant abdominal pain Asthma Surgical History History of arthroscopic knee surgery Subareolar mass of left breast Umbilical hernia, incarcerated (12/12/23) History of excision of mass (07/31/23) History of surgery on arm Hx of cholecystectomy Family History Other Substance abuse Social History Household Members: Family Housing: House Are you a primary healthcare facility administrator to a significant other at home: No Do you presently have visiting nurse or other home services: No 75 years or older and lives alone: No Alcohol intake: never Patient Tobacco Use Status: Former Tobacco user Tobacco use type: Cigarette Cigarette Packs Per Day: 4 Cigarettes Per Day: 80.0 Years Smoked: 30 e-Cigarette/Vaping Use: Never Used Second Hand Smoke Exposure: No service: No Current occupational status: employed and unemployed Current occupation: works nights Current occupational exposures/hazards: No Gender identity: Male Cognitive needs: No Hearing needs: Yes Vision needs: Yes Physical Exam Vital Signs: Last Vital Signs Pulse 88 11/30/24 10:27 BP 122/86 11/30/24 10:27 Pulse Ox 95 11/30/24 10:27 Oxygen Delivery Method Room Air 11/30/24 10:27 BMI result Body Mass Index 47.1 Const General: comfortable; No acute distress Orientation/consciousness: patient oriented x3 Eyes General: appearance normal, both eyes and all related structures Visual Escobar: normal visual escobar by confrontation Neck Neck: Yes supple and Yes no JVD Resp Effort & Inspection: normal respiratory effort and respiratory effort not decreased Auscultation: rhonchi Cardio Palpation: no palpable S3 and no palpable S4 Heart sounds: no rubs GI Inspection: Yes normal to inspection Palpation (GI): Soft to palpation Percussion: Yes normal to percussion Auscultation: normal bowel sounds General: Yes no CVA tenderness Back/Spine/Pelvis Back: no CVA tenderness Skin General skin exam: no petechiae and no purpura Neuro General: patient oriented x3 and no focal motor deficits Extrem General: No clubbing and No edema Results Reviewed Nephrology Results: Hgb 15.2 g/dl (14.0-18.0) 11/26/24 WBC 7.4 X10*3/uL (4.8-10.8) 11/26/24 Plt Count 301 X10*3/uL (160-400) 11/26/24 Sodium 140 mmol/L (135-145) 11/26/24 Potassium 4.6 mmol/L (3.3-5.1) 11/26/24 Chloride 113 mmol/L (96-108) H 11/26/24 Carbon Dioxide 21 mmol/L (22-29) L 11/26/24 BUN 17 mg/dL (9-16) H 11/26/24 Creatinine 0.75 mg/dL (0.5-1.4) 11/26/24 Calcium 9.6 mg/dL (8.4-10.2) 11/26/24 Assessment & Plan Assessment & Plan (1) Microalbuminuria: Comment: Most likely due to Obesity/HTN Code(s): R80.9 - Proteinuria, unspecified Category: Medical Plan: He needs weight loss He will benefit from KAYLYN inhibitor or ARB for renal protection. Maintain blood pressure less than 130/80. (2) Renal cyst: Code(s): N28.1 - Cyst of kidney, acquired Category: Medical Plan: . CT scan done in 2022 revealed renal cyst. Follow renal ultrasonogram shows septic cyst on both kidneys and a repeat CT scan has been recommended. Repeat CT scan. shows simple cyst (3) Hypertension: Comment: goal <130/80 Code(s): I10 - Essential (primary) hypertension Category: Social Hx Qualifiers: Hypertension type: primary hypertension Qualified Code(s): I10 - Essential (primary) hypertension Plan: Keep VALSARTAN 80 mg DAILY (4) Dyslipidemia: Code(s): E78.5 - Hyperlipidemia, unspecified Category: Medical Plan: Encouraged to continue Lipitor Discussed complaince Orders: Orders Basic Metabolic Panel 4 Months I10 - Essential (primary) hypertension Coding Level of Care Code Est Pt Level 4 (68627) Diagnoses Microalbuminuria R80.9 Renal cyst N28.1 Primary hypertension I10 Hypertension type: primary hypertension Dyslipidemia E78.5
[2024-11-30 10:27] VITALS: BP 122/86; PULSE 88; O2SAT 95; BMI 47.1
== END 2024-11-30 10:41 | disposition home or self-care (01) ==
PROVIDERS: PCP Nurse Practitioner Family; Visit Provider Internal Medicine Hypertension Specialist
DX: R80.9 Proteinuria, unspecified (principal); N28.1 Cyst of kidney, acquired; I10 Essential (primary) hypertension; E78.5 Hyperlipidemia, unspecified
CPT/HCPCS: 99214

== ENCOUNTER → 2024-11-30 10:23 | Outpatient (BNVA) | payer OTHER, SELFPAY | PROVIDERS: PCP Nurse Practitioner Family; Visit Provider Internal Medicine Hypertension Specialist | DX: R80.9 Proteinuria, unspecified (principal); I10 Essential (primary) hypertension; N28.1 Cyst of kidney, acquired; E78.5 Hyperlipidemia, unspecified | CPT/HCPCS: 99212 ==

== ENCOUNTER 2024-12-10 08:15 | Outpatient (AMB) | payer OTHER, SELFPAY ==
--- NOTE | 2024-12-10 08:22 | A.OFFPC_ITS ---
Vital Signs 12/10/24 08:51 Height 5 ft 3 in Weight 265 lb 8 oz BMI 47.0 BP 132/76 Blood Pressure Location Lt brachial Position Sitting Respiration 12 Pulse 76 Pulse Source Pulse Oximeter Temp 97.2 F Temp Source Oral Pulse Oximetry (%) 95 Oxygen Delivery Method Room Air Intake Visit Reasons: FOLLOW UP ED C Intake Note: ED [facility] [place] follow up, patient also want knows about starting wegovy. Philatelic Consultant Required: Yes Philatelic Consultant Language: Branch Credit Counselor Name: Kenneth [id number] Allergies lisinopril Adverse Reaction (Intermediate, Verified 12/10/24 09:17) Cough, headache Medication List - Last Reconciled 12/10/24 by Sravani Ledesma, MANAGER ASSEMBLY- albuterol sulfate 90 mcg/actuation 2 puffs inhalation Q4-6H PRN albuterol sulfate 1.25 mg (3 mL) inhalation Q4H 1 month atorvastatin 80 mg PO QPM blood pressure kit-extra large As directed buspirone 10 mg PO BID docusate sodium (Colace) 200 mg (2 x 100 mg) PO BEDTIME fluoxetine 20 mg PO DAILY ibuprofen 600 mg PO Q6H PRN loratadine 10 mg PO DAILY lorazepam mg PO PRN mecobalamin (vitamin B12) (B12 Active) 2,000 mcg (2 x 1,000 mcg) PO DAILY melatonin 3 mg PO BEDTIME miscellaneous medical supply air purifier for personal use as directed; pantoprazole 20 mg PO BID propranolol ER 60 mg PO BEDTIME salicylic acid 3% (Selsun Blue (salicylic acid)) 1 appl topical 2XW PRN tiotropium-olodaterol 2.5-2.5 mcg/actuation (Stiolto Respimat) 2 puffs inhalation DAILY tramadol 50 mg PO Q12H PRN trazodone 50 mg PO BEDTIME valsartan 80 mg PO BID 90 days ziprasidone HCl 20 mg PO BID Tobacco use date assessed: 12/10/24 Dental Screening Dental Screen Date: 12/10/24 Did you have a dental visit in the last 12 months?: Yes Did you have a dental problem in the last 6 months where you did not have access to dental care?: No Was dental information given to patient?: Patient has dentist HPI HPI Comments History of Present Illness Details Philatelic Consultant [id number] 54-year-old Syrian-speaking male hypert ension, COPD, GERD, hyperlipidemia, obesity, bilat renal cysts (benign), fatty liver, bilat breast mass, right bicep tendon rupture 06/2024, severe obstructive sleep apnea s/p open incarcerated umbilical hernia w/mesh 12/2023, s/p Left knee arthroscopic surgery on 05/22/2024 Health Maintenance: Colonoscopy referred Vaccines - Tdap 2023, declined Specialists GI Pulmonology General surgery Renal Ortho History of Present Illness - The patient is a 54-year-old male pres enting for follow-up on chronic conditions. This was a difficult visit as patient does not truly know what meds he is taking. I asked him to bring all of his meds from home to this visit so that i can see what he has and is taking/needs. He forgot them. he is not able to recall med names or why he is taking them. Be that as it may. He comes in today and reports: - Managed for hypertension with valsarta n; patient reports improvement. - Chronic COPD without recent exacerbati ons. - Hyperlipidemia management ongoing; dean rvastatin - Obesity with a history of renal involv ement and regular clinical follow-ups. - Diagnosed with fatty liver disease, re quiring continuous management. - Severe obstructive sleep apnea diagnos ed, CPAP compliance issues noted. - CPAP titration order placed previously ; patient noncompliant. - General home care CPAP order noted, wi th settings specified but not used. - Significant noncompliance with medicat ions and ordered studies highlighted. - Complains of sore throat, potentially acid reflux-related; prescribed pantoprazole was unfilled for months. referral to gi active, appt scheduled this month. - Experiences episodes of unexplained ta chycardia, questioning propranolol compliance. no chest pain. - Patient does not consume alcohol. - Discussed follow-up with nurse navigat ion for medication compliance. Review of Systems - Gastrointestinal: Reports sore throat potentially related to acid reflux. Denies nausea and vomiting. - Cardiovascular: Brief episode of incre ased heart rate was noted. Exam Awake alert, NAD, pleasant and cooperative Scleras nonitceric bilat MMM, Tongue with red center, no lesions RRR LS CTAB, dim throughout Abd round, protrubent, obese, normoactive bs, + hepatomegaly, nontender No edema BLE, decreased PP bilat, hairless, skin intact Mood and affect appropriate Discussion Notes I discussed extensively with the patient the importance of adhering to his medication regimen, emphasizing how noncompliance is affecting his chronic conditions like hypertension and sleep apnea. I reiterated the need to follow up on the CPAP titration order and the upcoming gastroenterology appointment, as these are crucial in managing his obstructive sleep apnea and gastrointestinal symptoms, respectively. I explained that the pantoprazole prescription is intended to address the sore throat sensation related to acid reflux. We discussed the confusion surrounding his medications, and plans were made to have the nurse navigator aid in sorting out his prescriptions. Follow-up instructions included ensuring he's set up for necessary appointments and reviewing his medications with the nurse navigator. Was clear to him that i want to provide the best care to him, however the current situation makes this a challenge. I hope with the NN we can get some clarity & help provide edu and support for him. he is very pleasant & understanding of this. Assessment and Plan 1. Essential Hypertension: Blood pressur e has improved with current medication, but continued emphasis on compliance is necessary. ffd by renal 2. Chronic Obstructive Pulmonary Disease (COPD): Stable, no recent exacerbations. Encourage adherence to treatment. 3. Hyperlipidemia, Obesity, and Fatty Li adebayo Disease: Continue with current management. Monitor lifestyle factors impacting health. 4. Severe Obstructive Sleep Apnea: order CPAP machine for home use. Await specific titration settings, pending second sleep study. 5. Sore Throat/Acid Reflux: Resend panto prazole prescription for unresolved symptoms. Systemic review and follow-up necessary. 6. Noncompliance: Patient to work with tessie porter navigator to align current medications with prescribed regimen. Patient Instructions - Follow up with nurse navigator to revi ew all medications currently being taken. - Ensure appointments for sleep study ti tration and gastroenterology examination are scheduled. - Take pantoprazole as prescribed once r eceived from pharmacy. - Continue current treatments for chroni c conditions and adhere to medication schedule. - Report any episodes of fast heart rate or other concerning symptoms promptly. - FU after NN visit sooner PRN Consent Patient consented verbally to the medication plan including use of pantoprazole and continuation of current therapies. I reviewed the benefits, alternative options, and importance of adherence. No surgical consents were discussed during this visit. Patient was informed and verbally consented to the use of an ambient scribe for clinic note documentation during this visit. Total time spent caring for the patient today was 70 minutes. This includes time spent before the visit reviewing the chart, time spent during the visit, and time spent after the visit on documentation, reviewing laboratory results, diagnostic imaging, medications, performing a medically necessary evaluation, counseling on diagnoses, care coordination, ordering appropriate tests, ordering appropriate medications, review of tests performed by other providers, reporting test results with the patient, communication with other healthcare providers. [facility] Medical History (Updated 12/10/24 @ 17:39 by Sravani Ledesma, [facility]) Asthma Asthma attacks lasting more than 24 hours Asthma, mild intermittent, poorly controlled Bilateral leg cramps Breast mass, left Breast mass, right Chronic constipation Cyst of right breast Elevated blood pressure reading Impacted cerumen, left ear Infected tooth Left upper quadrant abdominal pain Low back strain Morbid obesity Normal physical exam Poor historian Pre-op evaluation Rib fractures Sore throat Tachycardia Surgical History History of arthroscopic knee surgery Subareolar mass of left breast Umbilical hernia, incarcerated (12/12/23) History of excision of mass (07/31/23) History of surgery on arm Hx of cholecystectomy Family History Other Substance abuse Social History Household Members: Family Housing: House Are you a primary managed care director to a significant other at home: No Do you presently have visiting nurse or other home services: No 75 years or older and lives alone: No Alcohol intake: never Patient Tobacco Use Status: Former Tobacco user Tobacco use type: Cigarette Cigarette Packs Per Day: 4 Cigarettes Per Day: 80.0 Years Smoked: 30 e-Cigarette/Vaping Use: Never Used Second Hand Smoke Exposure: No service: No Current occupational status: employed and unemployed Current occupation: works nights Current occupational exposures/hazards: No Gender identity: Male Cognitive needs: No Hearing needs: Yes Vision needs: Yes Questionnaire PHQ-9 Over the last 2 weeks, how often have you been bothered by any of the following problems? 1. Little interest or pleasure in doing things: not at all 2. Feeling down, depressed, or hopeless: not at all 3. Trouble falling or staying asleep, or sleeping too much: not at all 4. Feeling tired or having little energy: not at all 5. Poor appetite or overeating: not at all 6. Feeling bad about yourself - or that you are a failure or have let yourself or your family down: not at all 7. Trouble concentrating on things, such as reading the newspaper or watching television: not at all 8. Moving or speaking so slowly that other people could have noticed. Or the opposite - being so fidgety or restless that you have been moving around a lot more than usual: not at all 9. Thoughts that you would be better off or of hurting yourself in some way: not at all Total score: 0 Depression Screening Interpretation: Negative Depression Screening Done: Yes 45229 - PHQ-9 Billing: Yes Source: Developed by Drs. Amauri Pandya, Roselyn Jeong, Nigel Posada and colleagues, with an educational beatrice from [employer]. Thrive Questionnaire Date Thrive assessed: 12/10/24 I am a: Patient What is your living situation today?: I have a steady place to live Within the past 12 months, did the food you bought not last and you didn't have the money to get more?: Never true Within the past 12 months, did you worry whether your food would run out before you got money to buy more?: Never true Do you have trouble paying for medicines?: No Do you have trouble getting transportation to medical appointments?: No Do you have trouble paying your heating and electricity bill?: No Do you have trouble taking care of your child, family member or friend?: No Do you have trouble with day-to-day activities such as bathing, preparing meals, shopping, managing finances, etc.?: No Are you currently unemployed and looking for a job?: No Are you interested in more education?: No Please select the resources that you would like help with: None Currently or been in a relationship where the following occur: No concerns reported THRIVE Score: 0 AUDIT C Alcohol Use Questionnaire (AUDIT-C) 1. How often do you have a drink containing alcohol?: Never 3. How often do you have six or more drinks on one occasion?: Never Total Score: 0 Score Reviewed/Action Taken: Yes DENISHA-7 AMB Questionnaire DENISHA-7 Date DENISHA - 7 assessed: 12/10/24 Feeling nervous, anxious, or on edge: 0 = Not at all Not being able to stop or control worryin = Not at all Worrying too much about different things: 0 = Not at all Trouble relaxin = Not at all Being so restless that it is hard to sit still: 0 = Not at all Becoming easily annoyed or irritable: 0 = Not at all Feeling afraid as if something awful might happen: 0 = Not at all Total DENISHA-7 score (0-4 normal; 5-9 mild; 10-14 moderate; 15-21 severe): 0 Source: Developed by Drs. Amauri Pandya, Roselyn Jeong, Nigel gomez nd colleagues, with an educational beatrice from [employer]. DENISHA-7 Assessment Billing DENISHA-7 Assessment Tool: DENISHA-7 Assessment 82170 ACT Questionnaire In the past 4 weeks, how much of the time did your asthma keep you from getting as much done at work, school or at home?: None of the time During the past 4 weeks, how often have you had shortness of breath?: Not at all During the past 4 weeks, how often did your asthma symptoms wake you up at night or earlier than usual in the morning?: Not at all During the past 4 weeks, how often have you had to use your rescue inhaler or nebulizer medication?: Not at all How would you rate your asthma control during the past 4 weeks?: Completely controlled ACT Interpretation: Negative Score: 25 Physical exam (Primary Care) Vital Signs: Last Vital Signs Temp 97.2 F 12/10/24 08:51 Pulse 76 12/10/24 08:51 Resp 12 12/10/24 08:51 BP 132/76 12/10/24 08:51 Pulse Ox 95 12/10/24 08:51 Oxygen Delivery Method Room Air 12/10/24 08:51 BMI result Body Mass Index 47.0 BMI Assessment/Plan discussion: High BMI High, discussed plan: lifestyle Tobacco/Smoking Status: Tobacco use Status Tobacco use date assessed 12/10/24 12/10/24 08:24 Patient Tobacco Use Status Former Tobacco user 12/10/24 08:22 Tobacco use type Cigarette 12/10/24 08:22 e-Cigarette/Vaping Use Never Used 12/10/24 08:22 PHQ-9: PHQ-9 Score PHQ-9: Total score 0 12/10/24 09:30 Depression Screening Interpretation: Negative Thrive Assessment: Date of Thrive Assessment Date Thrive assessed 12/10/24 12/10/24 08:22 Currently or been in a relationship where the following occur: No concerns reported Coding Level of Care Code Est Pt Level 5 (34393) Complex EM visit Add On G2211 Diagnoses Severe obstructive sleep apnea-hypopnea syndrome G47.33 Fatty liver K76.0 Primary hypertension I10 Hypertension type: primary hypertension High cholesterol E78.00 Medically noncompliant Z91.199 Prediabetes R73.03 Encounter for screening involving social determinants of health (SDoH) Z13.9 Gastroesophageal reflux disease without esophagitis K21.9 Esophagitis presence: without esophagitis Simple chronic bronchitis J41.0 COPD type: chronic bronchitis Chronic bronchitis type: simple Morbid obesity with BMI of 45.0-49.9, adult E66.01; Z68.42 CPT Codes PROLONG OUTPT/OFFICE VIS - G2212 Additional Codes Asthma Control Questionnaire - ACT Interpretation: Negative ([id number]) DENISHA-7 Assessment Billing - DENISHA-7 Assessment Tool: DENISHA-7 Assessment 53323 ([id number]) PHQ-9 - 18391 - PHQ-9 Billing: Yes ([id number]) Assessment & Plan Assessment & Plan (1) Severe obstructive sleep apnea-hypopnea syndrome: Code(s): G47.33 - Obstructive sleep apnea (adult) (pediatric) Category: Medical (2) Fatty liver: Comment: referred to GI Code(s): K76.0 - Fatty (change of) liver, not elsewhere classified Category: Medical (3) Hypertension: Comment: goal <130/80 Code(s): I10 - Essential (primary) hypertension Category: Social Hx Qualifiers: Hypertension type: primary hypertension Qualified Code(s): I10 - Essential (primary) hypertension (4) High cholesterol: Comment: LDL goal < 70 was on atorvastatin 40mg QD Code(s): E78.00 - Pure hypercholesterolemia, unspecified Category: Medical (5) Medically noncompliant: Code(s): Z91.199 - Patient's noncompliance with other medical treatment and regimen due to unspecified reason Category: Medical (6) Prediabetes: Comment: hga1c 6.3% 07/2024 referred to bariatric clinic for wt mgmt Code(s): R73.03 - Prediabetes Category: Medical (7) Encounter for screening involving social determinants of health (SDoH): Code(s): Z13.9 - Encounter for screening, unspecified Category: Medical (8) Acid reflux: Comment: pantoprazole 40 mg QD Reflux precautions Referred back to GI Code(s): K21.9 - Gastro-esophageal reflux disease without esophagitis Category: Medical Qualifiers: Esophagitis presence: without esophagitis Qualified Code(s): K21.9 - Gastro-esophageal reflux disease without esophagitis (9) COPD (chronic obstructive pulmonary disease): Code(s): J44.9 - Chronic obstructive pulmonary disease, unspecified Category: Medical Qualifiers: COPD type: chronic bronchitis Chronic bronchitis type: simple Qualified Code(s): J41.0 - Simple chronic bronchitis (10) Morbid obesity with BMI of 45.0-49.9, adult: Comment: BMI > 35 WITH HTN AND HLD Refer to Bariatric surgery Code(s): E66.01 - Morbid (severe) obesity due to excess calories; Z68.42 - Body mass index [BMI] 45.0-49.9, adult Category: Medical Plan . Orders: Referrals Nurse Navigator Referral Z13.9 - Encounter for screening, unspecified, Z91.199 - Patient's noncompliance with other medical treatment and regimen due to unspecified reason Medications: Refilled pantoprazole 20 mg PO BID 60 tabs 2RF
[2024-12-10 08:51] VITALS: BP 132/76; PULSE 76; RESP 12; TEMP 36.2; O2SAT 95; BMI 47.0
== END 2024-12-10 09:39 | disposition home or self-care (01) ==
PROVIDERS: PCP Nurse Practitioner Family; Visit Provider Nurse Practitioner Family
DX: G47.33 Obstructive sleep apnea (adult) (pediatric) (principal); K76.0 Fatty (change of) liver, not elsewhere classified; I10 Essential (primary) hypertension; E78.00 Pure hypercholesterolemia, unspecified; Z91.199 Patient's noncompliance with other medical treatment and regimen due to unspecified reason; R73.03 Prediabetes; Z13.9 Encounter for screening, unspecified; K21.9 Gastro-esophageal reflux disease without esophagitis; J41.0 Simple chronic bronchitis; E66.01 Morbid (severe) obesity due to excess calories; Z68.42 Body mass index [BMI] 45.0-49.9, adult

== ENCOUNTER → 2024-12-10 08:15 | Outpatient (BNVA) | payer OTHER, SELFPAY | PROVIDERS: PCP Nurse Practitioner Family; Visit Provider Nurse Practitioner Family | DX: G47.33 Obstructive sleep apnea (adult) (pediatric) (principal); K76.0 Fatty (change of) liver, not elsewhere classified; E78.00 Pure hypercholesterolemia, unspecified; I10 Essential (primary) hypertension; R73.03 Prediabetes; K21.9 Gastro-esophageal reflux disease without esophagitis; J41.0 Simple chronic bronchitis; Z68.42 Body mass index [BMI] 45.0-49.9, adult; Z91.199 Patient's noncompliance with other medical treatment and regimen due to unspecified reason; Z71.3 Dietary counseling and surveillance | CPT/HCPCS: 96127; 96160; 99212 ==

== ENCOUNTER 2024-12-21 13:43 | Outpatient (REF) | payer OTHER, SELFPAY ==
[2024-12-21 15:50] LABS: Alanine Aminotransferase 22 U/L (0-40); Albumin Level 4.1 g/dL (3.5-5.0); Aspartate Amino Transferase 22 U/L (5-37); Bilirubin Direct 0.1 mg/dL (0.0-0.5); Bilirubin Total 0.3 mg/dL (0.0-1.0); C Reactive Protein 0.48 mg/dL (< or = 0.50); Iron 70 mcg/dL (45-160); Percent Iron Saturation 22 % (15-50); Total Iron Binding Capacity 313 mcg/dL (228-428); Total Protein 7.4 g/dL (6.5-8.0); Unsaturated Iron Binding 243 ug/dL
[2024-12-21 15:58] LABS: Alkaline Phosphatase 77 U/L (39-117)
[2024-12-21 16:10] LABS: Ferritin 189 ng/mL (20-250)
[2024-12-22 06:02] LABS: Immunoglobulin A 212 mg/dL (47-310)
[2024-12-22 20:53] LABS: Transglutaminase IgA <1.0 U/mL
== END 2024-12-21 13:44 | disposition home or self-care (01) ==
LOC: HO.LAB 13:43
PROVIDERS: PCP Nurse Practitioner Family; Visit Provider Internal Medicine
DX: K76.0 Fatty (change of) liver, not elsewhere classified (principal); R19.7 Diarrhea, unspecified; K21.9 Gastro-esophageal reflux disease without esophagitis; R13.10 Dysphagia, unspecified
CPT/HCPCS: 36415; 80076; 82728; 82784; 83540; 86140; 86364; 99212

== ENCOUNTER 2024-12-21 13:43 | Outpatient (AMB) | payer OTHER, SELFPAY ==
[2024-12-21 13:44] VITALS: BP 138/84; PULSE 80; BMI 46.1
--- NOTE | 2024-12-21 13:44 | A.OFFVIS_ITS ---
Vital Signs 12/21/24 13:44 Height 5 ft 3 in Weight 260 lb 2.327 oz BMI 46.1 BP 138/84 Blood Pressure Location Lt brachial Position Sitting Pulse 80 Intake Visit Reasons: Fatty liver was Cecelia PT 30 mins Intake Note: Cecelia patient here for a follow up regarding his fatty liver. CC: He states that he takes the colace when he has issues having a BM and it helps him. Floor Coverer Apprentice Required: Yes Floor Coverer Apprentice Name: Jesús [id number] Allergies lisinopril Adverse Reaction (Intermediate, Verified 12/21/24 13:50) Cough, headache HPI Comments Details: 54 y.o M with PMH of COPD, obesity, MAEGAN, HLD, GERD, HTN who is here to re- establish care. Reports longstanding chronic diarrhea > 1 year not assoc with abd pain, N,V. Does not change with food but sometimes will spontaneously revert to formed BMs for a few days. In addition, pt also reports heartburn, morning cough and sensation of food getting stuck x 6-8 months. No fam hx of esophageal or colon ca. On chart review - pt also noted to have ill defined lesions in left lobe. 05/2024 contrasted scan. [facility] Medical History (Updated 12/21/24 @ 14:24 by Joy Morris MD) Tachycardia Breast mass, left Bilateral leg cramps Sore throat Breast mass, right Cyst of right breast Impacted cerumen, left ear Low back strain Morbid obesity Rib fractures Pre-op evaluation Elevated blood pressure reading Infected tooth Chronic constipation Normal physical exam Asthma, mild intermittent, poorly controlled Poor historian Asthma attacks lasting more than 24 hours Left upper quadrant abdominal pain Asthma Surgical History (Updated 12/21/24 @ 13:52 by MANUEL Luque) History of surgery on lower extremity History of arthroscopic knee surgery Subareolar mass of left breast Umbilical hernia, incarcerated (12/12/23) History of excision of mass (07/31/23) History of surgery on arm Hx of cholecystectomy Family History Other Substance abuse Social History Household Members: Family Housing: House Are you a primary healthcare project manager to a significant other at home: No Do you presently have visiting nurse or other home services: No 75 years or older and lives alone: No Alcohol intake: never Patient Tobacco Use Status: Former Tobacco user Tobacco use type: Cigarette Cigarette Packs Per Day: 4 Cigarettes Per Day: 80.0 Years Smoked: 30 e-Cigarette/Vaping Use: Never Used Second Hand Smoke Exposure: No service: No Current occupational status: employed and unemployed Current occupation: works nights Current occupational exposures/hazards: No Gender identity: Male Cognitive needs: No Hearing needs: Yes Vision needs: Yes Physical Exam Vital Signs: Last Vital Signs Pulse 80 12/21/24 13:44 BP 138/84 12/21/24 13:44 BMI result Body Mass Index 46.1 Results Reviewed Results Reviewed: CT abd/pel with IV contrast 05/2024: The liver is normal in size and shape but probably demonstrates decreased attenuation although measurements after contrast are difficult. Again seen in the left lobe of the liver are 2 somewhat ill-defined hyperattenuating masses measuring around 3 to 3.5 cm each. No other focal hepatic lesion or biliary ductal dilatation is present. The gallbladder is not seen. Assessment & Plan Assessment & Plan (1) Fatty liver: Comment: referred to GI Code(s): K76.0 - Fatty (change of) liver, not elsewhere classified Category: Medical (2) Lesion of liver: Code(s): K76.9 - Liver disease, unspecified Category: Medical (3) Diarrhea: Code(s): R19.7 - Diarrhea, unspecified Category: Medical (4) Acid reflux: Code(s): K21.9 - Gastro-esophageal reflux disease without esophagitis Category: Medical Qualifiers: Esophagitis presence: without esophagitis Qualified Code(s): K21.9 - Gastro-esophageal reflux disease without esophagitis (5) Dysphagia: Code(s): R13.10 - Dysphagia, unspecified Category: Medical Plan 1. x2 left liver lobe lesions: Although no underlying cirrhosis, lesions will need dedicated imaging to evaluate. Plan: - Urgent MRI ordered - LFTs 2. Chronic diarrhea Ongoing for more than a year. No assoc abd pain with this. No blood in stool. Plan: - Labs as below to r/o celiac, IBD - EGD/[place] to be booked 3. GERD, dysphagia likely 2/2 esophagitis vs gerd vs stricture, vs dysmotilty. High dose PPI recently resumed by PCP. Plan: - Barium swallow - EGD wiht possible dil as above Follow up after procedures Orders: Orders IRON PROFILE Today K76.0 - Fatty (change of) liver, not elsewhere classified Liver Panel Today K76.0 - Fatty (change of) liver, not elsewhere classified Ferritin Today K76.0 - Fatty (change of) liver, not elsewhere classified MR abdomen wo/w con Today K76.9 - Liver disease, unspecified Transglutaminase IgA Today R19.7 - Diarrhea, unspecified Immunoglobulin A Today R19.7 - Diarrhea, unspecified C Reactive Protein Today R19.7 - Diarrhea, unspecified Calprotectin, Fecal Today R19.7 - Diarrhea, unspecified [place] barium swallow Today R13.10 - Dysphagia, unspecified Medications: New peg 3350-electrolytes 236-22.74-6.74 -5.86 gram (Golytely) as per split prep instructions, until fecal effluent is clear 240 mL PO Q10M 4,000 mL 0RF colonoscopy Coding Level of Care Code Est Pt Level 4 (25068) Complex EM visit Add On G2211 Diagnoses Fatty liver K76.0 Lesion of liver K76.9 Diarrhea R19.7 Gastroesophageal reflux disease without esophagitis K21.9 Esophagitis presence: without esophagitis Dysphagia R13.10
== END 2024-12-21 14:21 | disposition home or self-care (01) ==
LOC: HO.HGI 13:43
PROVIDERS: PCP Nurse Practitioner Family; Visit Provider Internal Medicine
DX: K76.0 Fatty (change of) liver, not elsewhere classified (principal); K76.9 Liver disease, unspecified; R19.7 Diarrhea, unspecified; K21.9 Gastro-esophageal reflux disease without esophagitis; R13.10 Dysphagia, unspecified
CPT/HCPCS: 99214; G2211

== ENCOUNTER 2024-12-22 16:00 | Outpatient (REF) | payer OTHER, SELFPAY ==
[2024-12-30 18:48] LABS: Calprotectin, Fecal 16 mcg/g
== END 2024-12-22 16:01 | disposition home or self-care (01) ==
LOC: HO.LNP 16:00
PROVIDERS: Visit Provider Internal Medicine
DX: R19.7 Diarrhea, unspecified (principal)
CPT/HCPCS: 83993

== ENCOUNTER → 2024-12-24 11:51 | Outpatient (BNVA) | payer OTHER, SELFPAY | PROVIDERS: PCP Nurse Practitioner Family ==

== ENCOUNTER → 2024-12-26 15:47 | Outpatient (BNV) | payer OTHER, SELFPAY | PROVIDERS: PCP Nurse Practitioner Family; Visit Provider Radiology Diagnostic Radiology | DX: K76.9 Liver disease, unspecified (principal) | CPT/HCPCS: 74183 ==

== ENCOUNTER 2024-12-26 16:03 | Outpatient (REF) | payer OTHER, SELFPAY ==
--- NOTE | ~2024-12-26 | MR_ITS ---
CLINICAL HISTORY: K76.9 - Liver disease, unspecified MR ABDOMEN WITH AND WITHOUT GADOLINIUM Comparison: VT/SR - CT ABDOMEN W IV CON - 06/02/24 09:05 EDT (report only) VT/SR - CT ABDOMEN PELVIS W IV CON - 05/06/24 12:51 EDT (report only) Findings: There is motion artifact. There is diffuse fatty infiltration of the liver. There is a T2 hyperintense well-circumscribed lobulated lesion in segment 2 of the liver which measures 2.5 x 3.3 x 2.6 cm. Following the administration of contrast, peripheral nodular enhancement is observed with progressive filling in. Signal characteristic match blood pool on additional imaging at 1, 3 and 5 minutes. There is a T2 hyperintense well-circumscribed 1.1 cm lesion in segment 4A with no visible enhancement. Spleen, pancreas and adrenal glands are unremarkable. The gallbladder is not visualized. No hydronephrosis. There are 5.3 cm and 1.2 cm bosniak type I right renal cysts. There is a 5 cm bosniak IIF left renal cyst. There is a 1.4 cm Bosniak type 1 left renal cyst. There are several subcentimeter bilateral renal cortical lesions that are too small to accurately characterize. No AAA. No lymphadenopathy. No bowel obstruction or ascites. No focal bony abnormality. IMPRESSION: 1. Motion affected study. 2. 3.3 cm left hepatic lobe lesion with signal and enhancement characteristics consistent with a benign hemangioma. 3. 1.1 cm left hepatic cyst. 4. Hepatic steatosis. 5. 5 cm Bosniak IIF left renal cyst. ACR White Paper recommendations (Herts, et al. J Am Nati Radiol 2018;15:264-273) suggest the following: Bosniak IIF mass. Further evaluation with CT or MRI without and with IV contrast at 6 and 12 months, then yearly for a total of 5 years after the initial discovery of the cystic mass. This document has been electronically signed by: Denisha Arreola DO on 12/26/2024 17:36:36
[2024-12-26] MEDS: gadobutroL 10 ML VIAL IVPUSH (16:23)
== END 2024-12-26 16:04 | disposition home or self-care (01) ==
LOC: HO.MRI 16:03
PROVIDERS: PCP Nurse Practitioner Family; Visit Provider Internal Medicine
DX: K76.9 Liver disease, unspecified (principal)
CPT/HCPCS: 74183; A9585

== ENCOUNTER 2025-01-21 17:56 | Emergency (ER) | payer OTHER, SELFPAY ==
[2025-01-21] VITALS (9 sets, daily range): BP systolic 124–130; BP diastolic 70–88; PULSE 90–113; RESP 20–24; TEMP 36.4–39.4; O2SAT 93–96; BMI 47.2
--- NOTE | ~2025-01-21 | XR_ITS ---
CLINICAL HISTORY: cough 1 view chest x-ray Comparison: 11/11/2024 Findings: Lungs are clear without acute infiltrates. No pneumothorax. Heart size normal. No acute bony abnormalities. Old right lower rib fracture. Impression: No acute processes This document has been electronically signed by: Elmer Zaidi MD on 01/21/2025 21:29:05
--- NOTE | 2025-01-21 17:59 | ED.GENADULT ---
HPI - General Adult General Chief complaint: General Medical Stated complaint: body aches Time Seen by Provider: 01/21/25 20:02 Source: patient Mode of arrival: ambulatory Limitations: no limitations History of Present Illness ED Provider: HPI narrative: Patient's care with fever body aches sore throat chills started earlier today noted to have fever of 103 on arrival. No other family member sick no urinary symptoms with occasional cough no open wound no rash has a mild headache no neck pain no nausea no vomiting no abdominal pain Related Data Home Medications ?Medication ?Instructions ?Recorded ?Confirmed fluoxetine 20 mg capsule 20 mg PO DAILY 03/05/24 12/10/24 lorazepam 0.5 mg tablet mg PO PRN 03/05/24 12/10/24 buspirone 10 mg tablet 10 mg PO BID 04/02/24 12/10/24 melatonin 3 mg tablet 3 mg PO BEDTIME 04/02/24 12/10/24 ziprasidone HCl 20 mg capsule 20 mg PO BID 04/02/24 12/10/24 Previous Rx's ?Medication ?Instructions ?Recorded blood pressure kit-extra large #1 ea 11/20/22 miscellaneous medical supply See Rx Instructions miscellaneous 11/20/22 .COMPLEX #1 ea docusate sodium 100 mg capsule 200 mg (2 x 100 mg) PO BEDTIME 01/30/24 (Colace) #180 caps loratadine 10 mg tablet 10 mg PO DAILY #90 tabs 01/30/24 ibuprofen 600 mg tablet 600 mg PO Q6H PRN pain #14 tabs 06/08/24 salicylic acid 3 % shampoo (Selsun 1 appl topical 2XW PRN itching 07/14/24 Blue (salicylic acid)) #325 mL atorvastatin 80 mg tablet 80 mg PO QPM #90 tabs 09/08/24 mecobalamin (vitamin B12) 1,000 2,000 mcg (2 x 1,000 mcg) PO DAILY 09/08/24 mcg chewable tablet (B12 Active) #180 tabs pantoprazole 20 mg tablet,delayed 20 mg PO BID #60 tabs 12/10/24 release peg 3350-electrolytes 236 240 ml PO Q10M colonoscopy #4,000 12/21/24 gram-22.74 gram-6.74 gram-5.86 mL gram solution (Golytely) valsartan 80 mg tablet 80 mg PO BID 90 days #180 tabs 01/12/25 albuterol sulfate 1.25 mg/3 mL 1.25 mg (3 mL) inhalation Q4H 1 01/14/25 solution for nebulization month #90 mL albuterol sulfate 90 mcg/actuation 2 puff inhalation Q4-6H PRN 01/14/25 aerosol inhaler shortness of breath or wheezing #8.5 grams tiotropium 2.5 mcg-olodaterol 2.5 2 puff inhalation DAILY #4 grams 01/14/25 mcg/actuation mist for inhalation (Stiolto Respimat) ibuprofen 600 mg tablet 600 mg PO Q6H PRN fever or pain 01/21/25 #30 tabs Allergies Allergy/AdvReac Type Severity Reaction Status Date / Time lisinopril AdvReac Intermediate Cough, Verified 01/21/25 18:03 headache Review of Systems Review of Systems: Yes all other systems are reviewed and are negative PMFSH Past Medical History Medical History Tachycardia Breast mass, left Bilateral leg cramps Sore throat Breast mass, right Cyst of right breast Impacted cerumen, left ear Low back strain Morbid obesity Rib fractures Pre-op evaluation Elevated blood pressure reading Infected tooth Chronic constipation Normal physical exam Asthma, mild intermittent, poorly controlled Poor historian Asthma attacks lasting more than 24 hours Left upper quadrant abdominal pain Asthma Surgical History History of surgery on lower extremity History of arthroscopic knee surgery Subareolar mass of left breast Umbilical hernia, incarcerated (12/12/23) History of excision of mass (07/31/23) History of surgery on arm Hx of cholecystectomy Family History Family History Other Substance abuse Social History Social History Household Members: Family Housing: House Are you a primary home care consultant to a significant other at home: No Do you presently have visiting nurse or other home services: No Alcohol intake: never Patient Tobacco Use Status: Former Tobacco user Tobacco use type: Cigarette Cigarette Packs Per Day: 4 Cigarettes Per Day: 80.0 Years Smoked: 30 Smoked in Last 30 Days: No e-Cigarette/Vaping Use: Never Used Second Hand Smoke Exposure: No Use of substances other than those prescribed or required for medical reasons: No Advance Directives: No Advance Directives Information Provided: No service: No Current occupational status: employed and unemployed Current occupation: works nights Current occupational exposures/hazards: No Gender identity: Male Cognitive needs: No Hearing needs: Yes Vision needs: Yes Physical Exam ED Vital Signs: BMI result Body Mass Index 47.2 Appearance: Alert. Oriented X3. No acute distress. Eyes: No pallor or icterus ENT: Pharynx normal. Oral Mucosa moist Neck: Normal inspection. Neck supple. CVS: Normal heart rate and rhythm. Pulses normal. Respiratory: No respiratory distress. Equal air entry bilateral, no wheezing/rales/rhonchi Abdomen: Soft and nontender. Bowel sounds are present, no mass palpable, no CVA tenderness Skin: Skin warm and dry. Normal skin color. Normal skin turgor. Extremities: No lower extremity edema. No calf tenderness Neuro: Oriented X 3. No motor deficit. Course Course Course Narrative: This is a rapid medical exam performed by Hema Guzman NP: Additional HPI, ROS, PE not included below will be deferred to primary provider. Patient is a 54-year-old male with history of asthma, obesity, chronic constipation presenting with complaint of generalized body aches since this morning, headache, sore throat, subjective fevers. Took Tylenol around 2pm. Plan: strep and viral swabs Medications Administered Discontinued Medications Generic Name Dose Route Start Last Admin Trade Name Freq PRN Reason Stop Dose Admin Sodium Chloride 1,000 mls @ 999 mls/hr 01/21/25 20:49 01/21/25 22:22 Ns IV 01/21/25 21:49 Infused .Q1H1M ONE Infusion Acetaminophen 1,000 mg in 100 mls @ 400 mls/hr 01/21/25 20:51 01/21/25 21:42 Ofirmev IV 01/21/25 21:05 Infused ONCE ONE Infusion Ibuprofen 600 mg 01/21/25 20:51 01/21/25 21:11 Ibuprofen 600 Mg Tablet PO 01/21/25 20:52 600 mg ONCE ONE Administration Medical Decision Making Medical Decision Making MDM Narrative: Patient with fever without any source of infection blood cultures were drawn lactic acid level was normal COVID flu RSV negative chest x-ray negative urine also negative patient has refused rectal exam denied any rectal pain likely patient has had a viral fever patient has responded to IV fluid and ibuprofen and Tylenol Differential Diagnosis Differential Diagnoses: The differential diagnosis associated with the presentation includes Viral fever/bacteremia/UTI/unknown source of infection/pneumonia Lab Data MDM Lab Attestation statement: I reviewed the patient's lab results. 01/21/25 21:06 01/21/25 21:06 Labs: Lab Results 01/21/25 01/21/25 01/21/25 Range/Units 18:12 21:06 22:02 WBC 6.6 (4.8-10.8) X10*3/uL RBC 5.89 H (4.60-5.80) X10*6/uL Hgb 14.8 (14.0-18.0) g/dl Hct 45.4 (42.0-52.0) % MCV 77.1 L (80.0-98.0) fL MCH 25.1 L (27.0-33.0) pg MCHC 32.6 (31.0-36.0) g/dl RDW 16.0 (11.0-16.0) % Plt Count 298 (160-400) X10*3/uL MPV 9.4 (9.4-12.4) fL Immature Gran % (Auto) 0.3 (0.0-0.4) % Neut % (Auto) 80.8 H (45-73) % Lymph % (Auto) 7.7 L (20-40) % Crenshaw % (Auto) 8.3 (2-11) % Eos % (Auto) 2.3 (0-4) % Baso % (Auto) 0.6 (0-2) % Lymph # (Auto) 0.5 L (1.2-4.9) X10*3/uL Crenshaw # (Auto) 0.6 (0.1-1.2) X10*3/uL Eos # (Auto) 0.2 (0.0-0.4) X10*3/uL Baso # (Auto) 0.0 (0.0-0.2) X10*3/uL Abs Immat Gran (auto) 0.02 (0.00-0.03) X10*3/uL Absolute Neuts (auto) 5.3 (2.0-8.3) x10*3/uL Absolute Nucleated RBC 0.000 (0.0-0.012) X10*3/uL Nucleated RBC % (auto) 0.0 (0.0-0.2) /100WBC Sodium 136 (135-145) mmol/L Potassium 4.3 (3.3-5.1) mmol/L Chloride 103 (96-108) mmol/L Carbon Dioxide 22 (22-29) mmol/L Anion Gap 15 (12-20) BUN 18 H (9-16) mg/dL Creatinine 0.85 (0.5-1.4) mg/dL Estim Creat Clear Calc 117.3 Estimated GFR > 60 Random Glucose 123 H (60-115) mg/dL Lactic Acid 2.0 (0.5-2.0) mmol/L Calcium 9.6 (8.4-10.2) mg/dL Total Bilirubin 0.6 (0.0-1.0) mg/dL AST 38 H (5-37) U/L ALT 32 (0-40) U/L Alkaline Phosphatase 83 (39-117) U/L Total Protein 7.7 (6.5-8.0) g/dL Albumin 4.4 (3.5-5.0) g/dL Urine Color Yellow Urine Appearance Clear Urine pH 5.5 (5.0-9.0) Ur Specific Shelton >= 1.030 H (1.005-1.025) Urine Protein Trace (Neg-Trace) mg/dL Urine Glucose (UA) Negative (Negative) mg/dL Urine Ketones Trace (Negative) mg/dL Urine Blood Negative (Negative) Urine Nitrite Negative (Negative) Ur Leukocyte Esterase Negative (Negative) Influenza Type A (PCR) NEGATIVE (Negative) Influenza Type B (PCR) NEGATIVE (Negative) RSV RNA Qual (PCR) NEGATIVE (Negative) SARS-CoV-2 RNA (RT-PCR) NEGATIVE (Negative) S. pyogenes GrpA HAN Negative (Negative) Independent Interpretation I performed an independent interpretation of an: Plain X-Ray Interpretation: No acute Radiology Impression Discussion of test interpretation with radiology: I have reviewed the radiologist's reading. Discharge Plan Discharge Clinical Impression: Viral fever Patient Disposition: Home, Self-Care Instructions: Viral Syndrome (ED) Additional Instructions: Cause of fever is not clear likely you have viral infection Drink plenty of fluids Tylenol/Motrin for pain fever Report to the ER/PCP if not better Prescriptions: New ibuprofen 600 mg tablet 600 mg PO Q6H PRN (Reason: fever or pain) Qty: 30 0RF No Action valsartan 80 mg tablet 80 mg PO BID 90 Days Qty: 180 0RF albuterol sulfate 90 mcg/actuation HFA aerosol inhaler 2 puff inhalation Q4-6H PRN (Reason: shortness of breath or wheezing) Qty: 8.5 1RF Stiolto Respimat 2.5-2.5 mcg/actuation mist 2 puff inhalation DAILY Qty: 4 6RF albuterol sulfate 1.25 mg/3 mL solution for nebulization 1.25 mg inhalation Q4H 30 Days Qty: 90 6RF ibuprofen 600 mg tablet 600 mg PO Q6H PRN (Reason: pain) Qty: 14 0RF docusate sodium [Colace] 100 mg capsule 200 mg PO BEDTIME Qty: 180 2RF loratadine 10 mg tablet 10 mg PO DAILY Qty: 90 0RF (DME) blood pressure kit-extra large Kit See Rx Instructions .Route Qty: 1 0RF Rx Instructions: As directed miscellaneous medical supply Misc See Rx Instructions miscellaneous .COMPLEX Qty: 1 0RF Rx Instructions: air purifier for personal use as directed; ziprasidone HCl 20 mg capsule 20 mg PO BID buspirone 10 mg tablet 10 mg PO BID melatonin 3 mg tablet 3 mg PO BEDTIME Selsun Blue (salicylic acid) 3 % shampoo 1 appl topical 2XW PRN (Reason: itching) Qty: 325 12RF Rx Instructions: leave on for 8 to14 hrs before washing off pantoprazole 20 mg tablet,delayed release (DR/EC) 20 mg PO BID Qty: 60 2RF lorazepam 0.5 mg tablet PO PRN fluoxetine 20 mg capsule 20 mg PO DAILY atorvastatin 80 mg tablet 80 mg PO QPM Qty: 90 2RF mecobalamin (vitamin B12) [B12 Active] 1,000 mcg tablet,chewable 2,000 mcg PO DAILY Qty: 180 3RF peg 3350-electrolytes [Golytely] 236-22.74-6.74 -5.86 gram recon soln 240 ml PO Q10M Qty: 4000 0RF Rx Instructions: as per split prep instructions, until fecal effluent is clear Interventions: ED Discharge Assessment Last Done: 01/21/25 23:37 Discharge Date/Time: 01/21/25 23:38 Print Language: Luxembourgish
[2025-01-21 18:32] LABS: IDNOW Serial# 55D5AD1C; Strep A Nucleic Acid Negative (Negative)
[2025-01-21 18:56] LABS: Influenza A PCR NEGATIVE (Negative); Influenza B PCR NEGATIVE (Negative); Resp Syncy Virus RNA Qual PCR NEGATIVE (Negative); SARS COV2 PCR INHOUSE NEGATIVE (Negative)
[2025-01-21] MEDS: 0.9 % Sodium Chloride 1,000 ML 999 ML IV (21:09)
[2025-01-21] MEDS: Acetaminophen 1,000 MG/100 ML PIGGYBACK 400 MG IV (21:11)
[2025-01-21] MEDS: Ibuprofen 600 MG TABLET PO (21:11)
[2025-01-21 21:16] LABS: MANUAL DIFF FLAG NO
[2025-01-21 21:19] LABS: Basophils Percent Auto 0.6 % (0-2); Eosinophils Absolute Auto 0.2 X10*3/uL (0.0-0.4); Eosinophils Percent Auto 2.3 % (0-4); Hematocrit 45.4 % (42.0-52.0); Hemoglobin 14.8 g/dl (14.0-18.0); Imm Gran Abs Auto 0.02 X10*3/uL (0.00-0.03); Imm Gran Pct Auto 0.3 % (0.0-0.4); Lymphocytes Absolute Auto 0.5 X10*3/uL (1.2-4.9); Lymphocytes Percent Auto 7.7 % (20-40); Mean Corpuscular HGB Conc 32.6 g/dl (31.0-36.0); Mean Corpuscular Hemoglobin 25.1 pg (27.0-33.0); Mean Corpuscular Volume 77.1 fL (80.0-98.0); Mean Platelet Volume 9.4 fL (9.4-12.4); Monocytes Absolute Auto 0.6 X10*3/uL (0.1-1.2); Monocytes Percent Auto 8.3 % (2-11); Neutrophils Absolute Auto 5.3 x10*3/uL (2.0-8.3); Neutrophils Percent Auto 80.8 % (45-73); Platelet Count 298 X10*3/uL (160-400); Red Blood Count 5.89 X10*6/uL (4.60-5.80); White Blood Count 6.6 X10*3/uL (4.8-10.8)
[2025-01-21 21:46] LABS: Alanine Aminotransferase 32 U/L (0-40); Albumin Level 4.4 g/dL (3.5-5.0); Alkaline Phosphatase 83 U/L (39-117); Aspartate Amino Transferase 38 U/L (5-37); Bilirubin Total 0.6 mg/dL (0.0-1.0); Blood Urea Nitrogen 18 mg/dL (9-16); Calcium 9.6 mg/dL (8.4-10.2); Creatinine Clr Calc Pharmacy 117.3; Estimated Glomerular Filt Rate > 60; Glucose Random 123 mg/dL (60-115); Total Protein 7.7 g/dL (6.5-8.0)
[2025-01-21 22:12] LABS: Appearance Urine Clear; Color Urine Yellow; Glucose Urine UA Negative (Negative); Leukocyte Esterase Urine Negative (Negative); Nitrite Urine Negative (Negative); PH 5.5 (5.0-9.0); Specific Gravity - Urine >= 1.030 (1.005-1.025); Urine Blood Negative (Negative); Urine Ketones Trace mg/dL (Negative); Urine Protein Trace mg/dL (Neg-Trace)
--- NOTE | 2025-01-21 23:21 | PC.NURSE ---
provider into discuss plan of care, pt refusing rectal exam. awaiting discharge paper work .
--- NOTE | 2025-01-21 23:35 | PC.NURSE ---
pt left with out paper work, did not want to wait. provider aware.
[2025-01-21 23:36] LABS: Anion Gap 15 (12-20); Carbon Dioxide 22 mmol/L (22-29); Chloride 103 mmol/L (96-108); Potassium 4.3 mmol/L (3.3-5.1); Sodium 136 mmol/L (135-145)
== END 2025-01-21 23:38 | disposition home or self-care (01) ==
PROVIDERS: Registered Nurse Emergency; Emergency Provider Internal Medicine
DX: R50.9 Fever, unspecified (principal); J02.9 Acute pharyngitis, unspecified; Z03.818 Encounter for observation for suspected exposure to other biological agents ruled out; I10 Essential (primary) hypertension; E78.5 Hyperlipidemia, unspecified; J45.909 Unspecified asthma, uncomplicated; Z79.02 Long term (current) use of antithrombotics/antiplatelets
CPT/HCPCS: 0241U; 36415; 71045; 80053; 81003; 83605; 85025; 87040; 87651; 96361; 96374; 99284; 99285; J0131

== ENCOUNTER → 2025-01-21 20:50 | Outpatient (BNV) | payer OTHER, SELFPAY | PROVIDERS: Emergency Provider Internal Medicine; Visit Provider Radiology Diagnostic Radiology | DX: R05.9 Cough, unspecified (principal) | CPT/HCPCS: 71045 ==

== ENCOUNTER 2025-02-09 11:41 | Outpatient (AMB) | payer OTHER, SELFPAY ==
--- NOTE | 2025-02-09 11:44 | MHC.PC.OV ---
Vital Signs 02/09/25 11:48 Height 5 ft 3 in Weight 265 lb 8 oz BMI 47.0 BP 134/74 Blood Pressure Location Lt brachial Position Sitting Respiration 13 Pulse 75 Pulse Source Pulse Oximeter Temp 97.4 F Temp Source Oral Pulse Oximetry (%) 96 Oxygen Delivery Method Room Air Intake Visit Reasons: FOLLOW UP FROM NN Intake Note: Follow up. Patient is requesting std testing and patient also c/o coughing up blood. Program Research Specialist Required: Yes Program Research Specialist Language: Library Media Specialist Name: Mary quintana [phone] Allergies lisinopril Adverse Reaction (Intermediate, Verified 02/11/25 12:07) Cough, headache Medication List - Last Reconciled 02/09/25 by Sravani Ledesma, RADIOTELEGRAPHER- albuterol sulfate 90 mcg/actuation 2 puffs inhalation Q4-6H PRN albuterol sulfate 1.25 mg (3 mL) inhalation Q4H 1 month atorvastatin 80 mg PO QPM blood pressure kit-extra large As directed buspirone 10 mg PO BID docusate sodium (Colace) 200 mg (2 x 100 mg) PO BEDTIME fluoxetine 20 mg PO DAILY ibuprofen 600 mg PO Q6H PRN ibuprofen 600 mg PO Q6H PRN loratadine 10 mg PO DAILY lorazepam mg PO PRN mecobalamin (vitamin B12) (B12 Active) 2,000 mcg (2 x 1,000 mcg) PO DAILY melatonin 3 mg PO BEDTIME miscellaneous medical supply air purifier for personal use as directed; pantoprazole 20 mg PO BID peg 3350-electrolytes 236-22.74-6.74 -5.86 gram (Golytely) 240 mL PO Q10M salicylic acid 3% (Selsun Blue (salicylic acid)) 1 appl topical 2XW PRN tiotropium-olodaterol 2.5-2.5 mcg/actuation (Stiolto Respimat) 2 puffs inhalation DAILY valsartan 80 mg PO BID 90 days ziprasidone HCl 20 mg PO BID Tobacco use date assessed: 02/09/25 Dental Screening Dental Screen Date: 02/09/25 Did you have a dental visit in the last 12 months?: Yes Did you have a dental problem in the last 6 months where you did not have access to dental care?: No Was dental information given to patient?: Patient has dentist HPI HPI Comments History of Present Illness Details Program Research Specialist [id number] 54-year-old Cymra[place]-speaking male hypertension, COPD, GERD, hyperlipidemia, obesity, bilat renal cysts (benign), fatty liver, bilat breast mass, right bicep tendon rupture 06/2024, severe obstructive sleep apnea s/p open incarcerated umbilical hernia w/mesh 12/2023, s/p Left knee arthroscopic surgery on 05/22/2024 Health Maintenance: Colonoscopy referred Vaccines - Tdap 2023, declined Specialists GI Pulmonology General surgery Renal Ortho History of Present Illness - The patient is a 54-year-old male presenting with a request for STD testing during a routine follow-up visit. - Since last visit, he did go to the ED at [facility] [place], left without treatment. Work up reviewed. - Actively involves in gastrointestinal monitoring and is pending evaluation for March 2025. - Interested in scheduling right knee surgery following improvements in blood pressure. - Rec'd CPAP for sleep apnea but doesnt want to use it to become dependent on it. - Reports nocturnal cough and sore throat, with ongoing respiratory evaluation scheduled. This is chronic and has has Pulm and Gi appts for these complaints. - Managed for hypertension with valsartan; patient reports improvement. - Chronic COPD without recent exacerbations. - Hyperlipidemia management ongoing; atorvastatin - Obesity with a history of renal involvement and regular clinical follow-ups. - Diagnosed with fatty liver disease, requiring continuous management. Exam Awake alert, NAD, pleasant and cooperative Scleras nonitceric bilat MMM, Tongue with red center, no lesions RRR LS CTAB, dim throughout Abd round, protrubent, obese, normoactive bs, + hepatomegaly, nontender No edema BLE, decreased PP bilat, hairless, skin intact Mood and affect appropriate Discussion Notes I discussed the routine follow-up with the patient, during which he requested STD testing, and reassured him that the results would be communicated via phone call, typically by the end of the day or the following day. We reviewed the patient's emergency room encounter, explaining potential reasons for the proposed rectal examination in light of prior flu-like symptoms. I acknowledged his concerns about the abdominal exam and confirmed the planned endoscopic evaluations and MRI, advising him of the March 2025 schedule. I addressed his interest in right knee surgery, affirming that his current blood pressure allows for surgical consideration and that a preoperative visit will occur once a surgery date is set. I sent a mesage to [facility] [place] ortho to let them know they can schedule if they feel appropriate to do so. Regarding sleep apnea, I informed the patient about the importance of CPAP, encouraging nightly use to prevent serious complications, and clarified that it won't impact his daytime breathing. The patient was advised to maintain his scheduled appointments with his edge brusher and controlled atmospheric furnace brazer for ongoing evaluations pertaining to gastrointestinal and respiratory issues. Follow-up planning is contingent upon the outcomes of the scheduled consultations and diagnostic procedures. Assessment and Plan 1. Sexually Transmitted Disease Testing I will facilitate the requested STD testing and ensure results are communicated in a timely manner. 2. Sleep Apnea Management Recommended CPAP adherence and assured patient it would not affect daytime respiration. 3. Gastrointestinal Evaluation Patient to follow through with scheduled gastrointestinal evaluations as planned 4. Right Knee Surgery Discussed stability of blood pressure, making re-scheduling of surgery viable. 6. Sore Throat and Cough Assessment Details follow-up with pulmonology and GI to manage persisting symptoms and guide future treatment. Patient Instructions - Use CPAP machine nightly for sleep apnea; it is safe and won't affect your breathing during the day. - Follow up on STD test results via phone in the next day or so. - Keep all appointments with Dr. Morris and Dr. Sidhu and stay on top of your gastroenterology and respiratory evaluations. - Once knee surgery is planned, meet with me within 30 days prior for pre-surgical clearance. - Let the office know if you have any questions or need further support for your sleep apnea device. Consent Patient was informed and verbally consented to the use of an ambient scribe for clinic note documentation during this visit. Total time spent caring for the patient today was 70 minutes. This includes time spent before the visit reviewing the chart, time spent during the visit, and time spent after the visit on documentation, reviewing laboratory results, diagnostic imaging, medications, performing a medically necessary evaluation, counseling on diagnoses, care coordination, ordering appropriate tests, ordering appropriate medications, review of tests performed by other providers, reporting test results with the patient, communication with other healthcare providers. Upcoming appts: After the patient left, + syphillis was resulted. Infectious Disease consult was placed. He was advised to go to the ED at [facility] [place] for Penicillin. Calling to see other options for PCN admin outside ED added the prolonged time to this visit. [facility] Medical History Tachycardia Breast mass, left Bilateral leg cramps Sore throat Breast mass, right Cyst of right breast Impacted cerumen, left ear Low back strain Morbid obesity Rib fractures Pre-op evaluation Elevated blood pressure reading Infected tooth Chronic constipation Normal physical exam Asthma, mild intermittent, poorly controlled Poor historian Asthma attacks lasting more than 24 hours Left upper quadrant abdominal pain Asthma Surgical History History of surgery on lower extremity History of arthroscopic knee surgery Subareolar mass of left breast Umbilical hernia, incarcerated (12/12/23) History of excision of mass (07/31/23) History of surgery on arm Hx of cholecystectomy Family History Other Substance abuse Social History Household Members: Family Housing: House Are you a primary doggy daycare activities director to a significant other at home: No Do you presently have visiting nurse or other home services: No Unable to assess alcohol history related to: Unable to respond Alcohol intake: never Patient Tobacco Use Status: Former Tobacco user Tobacco use type: Cigarette Cigarette Packs Per Day: 4 Cigarettes Per Day: 80.0 Years Smoked: 30 Smoked in Last 30 Days: No e-Cigarette/Vaping Use: Never Used Second Hand Smoke Exposure: No Use of substances other than those prescribed or required for medical reasons: No Advance Directives: No Advance Directives Information Provided: Yes service: No Current occupational status: employed and unemployed Current occupation: works nights Current occupational exposures/hazards: No Gender identity: Male Cognitive needs: No Hearing needs: Yes Vision needs: Yes Questionnaire PHQ-9 Over the last 2 weeks, how often have you been bothered by any of the following problems? 1. Little interest or pleasure in doing things: several days 2. Feeling down, depressed, or hopeless: several days 3. Trouble falling or staying asleep, or sleeping too much: several days 4. Feeling tired or having little energy: several days 5. Poor appetite or overeating: not at all 6. Feeling bad about yourself - or that you are a failure or have let yourself or your family down: several days 7. Trouble concentrating on things, such as reading the newspaper or watching television: several days 8. Moving or speaking so slowly that other people could have noticed. Or the opposite - being so fidgety or restless that you have been moving around a lot more than usual: several days 9. Thoughts that you would be better off or of hurting yourself in some way: not at all Total score: 7 Depression Screening Interpretation: Positive Depression Screening Done: Yes 93862 - PHQ-9 Billing: Yes Source: Developed by Drs. Amauri Pandya, Roselyn Jeong, Nigel Posada and colleagues, with an educational beatrice from [employer]. Thrive Questionnaire Date Thrive assessed: 02/09/25 I am a: Patient What is your living situation today?: I do not have a steady places to live I am temporarily staying with others Within the past 12 months, did the food you bought not last and you didn't have the money to get more?: I choose not to answer this question Within the past 12 months, did you worry whether your food would run out before you got money to buy more?: I choose not to answer this question Do you have trouble paying for medicines?: No Do you have trouble getting transportation to medical appointments?: Yes Do you have trouble paying your heating and electricity bill?: I choose not to answer this question Do you have trouble taking care of your child, family member or friend?: Yes Do you have trouble with day-to-day activities such as bathing, preparing meals, shopping, managing finances, etc.?: No Are you currently unemployed and looking for a job?: I choose not to answer this question Are you interested in more education?: I choose not to answer this question Please select the resources that you would like help with: Housing/Group Home Currently or been in a relationship where the following occur: I choose not to answer THRIVE Score: 2 AUDIT C Alcohol Use Questionnaire (AUDIT-C) 1. How often do you have a drink containing alcohol?: Never Total Score: 0 DENISHA-7 AMB Questionnaire DENISHA-7 Date DENISHA - 7 assessed: 02/09/25 Feeling nervous, anxious, or on edge: 1 = Several days Not being able to stop or control worryin = Several days Worrying too much about different things: 3 = Nearly every day Trouble relaxin = Nearly every day Being so restless that it is hard to sit still: 1 = Several days Becoming easily annoyed or irritable: 1 = Several days Feeling afraid as if something awful might happen: 1 = Several days Total DENISHA-7 score (0-4 normal; 5-9 mild; 10-14 moderate; 15-21 severe): 11 Source: Developed by Drs. Amauri Pandya, Roselyn Jeong, Nigel Posada and colleagues, with an educational beatrice from [employer]. DENISHA-7 Assessment Billing DENISHA-7 Assessment Tool: DENISHA-7 Assessment 96137 Physical exam (Primary Care) Vital Signs: Last Vital Signs Temp 97.4 F 02/09/25 11:48 Pulse 75 02/09/25 11:48 Resp 13 02/09/25 11:48 BP 134/74 02/09/25 11:48 Pulse Ox 96 02/09/25 11:48 Oxygen Delivery Method Room Air 02/09/25 11:48 BMI result Body Mass Index 47.0 Tobacco/Smoking Status: Tobacco use Status Tobacco use date assessed 02/09/25 02/09/25 11:50 Patient Tobacco Use Status Former Tobacco user 02/09/25 11:50 Tobacco use type Cigarette 02/09/25 11:50 e-Cigarette/Vaping Use Never Used 02/09/25 11:50 PHQ-9: PHQ-9 Score PHQ-9: Total score 7 02/10/25 17:32 Depression Screening Interpretation: Positive Thrive Assessment: Date of Thrive Assessment Date Thrive assessed 02/09/25 02/09/25 11:50 Currently or been in a relationship where the following occur: I choose not to answer Results Reviewed Results Reviewed: RUN: 02/10/25 1737 PAGE 1 [facility] [address] [place] [id number] Business Architect: Shawn Hernandez M.D. Specimen Inquiry Name: Socrates Mejia Age/Sex: 54/M : 1970 Unit#: [id number] Attend Dr: Sravani Ledesma RADIOTELEGRAPHER-BC Re02/09/25 Status: DEP [facility]ch: SPEC : [id number] FRANKI: 02/09/25-1215 STATUS: COMP REQ : [id number] RECD: 02/09/25-[address] [facility] [address]: Sravani Ledesma [facility]- COMP: 02/10/25-426 ENTERED: 02/09/25-[address]: ORDERED: Syphil Scrn Test Result Flag Reference Syphilis TP EIA Reactive A Nonreactive Reactive specimens are sent to [facility] for confirmatory tests. END OF REPORT Coding Level of Care Code Est Pt Level 5 (83622) Complex EM visit Add On G2211 Diagnoses Exposure to STD Z20.2 Acquired syphilis A53.9 Bilateral renal cysts N28.1 Simple chronic bronchitis J41.0 COPD type: chronic bronchitis Chronic bronchitis type: simple Fatty liver K76.0 High cholesterol E78.00 Primary hypertension I10 Hypertension type: primary hypertension Severe obstructive sleep apnea-hypopnea syndrome G47.33 Tear of medial meniscus of right knee, current, unspecified tear type, sequela S83.241S Tear current or old: current Encounter type: sequela Meniscus tear of knee type: unspecified type CPT Codes [facility] OUTPT/OFFICE VIS - G2212 Additional Codes DENISHA-7 Assessment Billing - DENISHA-7 Assessment Tool: DENISHA-7 Assessment 79785 ([id number]) PHQ-9 - 86595 - PHQ-9 Billing: Yes ([id number]) Assessment & Plan Assessment & Plan (1) Exposure to STD: Code(s): Z20.2 - Contact with and (suspected) exposure to infections with a predominantly sexual mode of transmission (2) Acquired syphilis: Comment: Go to ED to get Penicillin Referred to Infectious Dz. Code(s): A53.9 - Syphilis, unspecified Category: Medical (3) Bilateral renal cysts: Comment: incidental finding on imaging active w/ Renal for monitoring Code(s): N28.1 - Cyst of kidney, acquired Category: Medical (4) COPD (chronic obstructive pulmonary disease): Code(s): J44.9 - Chronic obstructive pulmonary disease, unspecified Category: Medical Qualifiers: COPD type: chronic bronchitis Chronic bronchitis type: simple Qualified Code(s): J41.0 - Simple chronic bronchitis (5) Fatty liver: Comment: referred to GI Code(s): K76.0 - Fatty (change of) liver, not elsewhere classified Category: Medical (6) High cholesterol: Comment: LDL goal < 70 on statin Code(s): E78.00 - Pure hypercholesterolemia, unspecified Category: Medical (7) Hypertension: Comment: goal <130/80 Code(s): I10 - Essential (primary) hypertension Category: Social Hx Qualifiers: Hypertension type: primary hypertension Qualified Code(s): I10 - Essential (primary) hypertension (8) Severe obstructive sleep apnea-hypopnea syndrome: Comment: on CPAP Code(s): G47.33 - Obstructive sleep apnea (adult) (pediatric) Category: Medical (9) Tear of medial meniscus of right knee: Code(s): S83.241A - Other tear of medial meniscus, current injury, right knee, initial encounter Category: Medical Qualifiers: Tear current or old: current Encounter type: sequela Meniscus tear of knee type: unspecified type Qualified Code(s): S83.241S - Other tear of medial meniscus, current injury, right knee, sequela Plan . Orders: Orders CT NG by PCR 02/09/25 Z11.3 - Encounter for screening for infections with a predominantly sexual mode of transmission HIV Ab/Ag 02/09/25 Z11.3 - Encounter for screening for infections with a predominantly sexual mode of transmission Syphilis Screen 02/09/25 Z11.3 - Encounter for screening for infections with a predominantly sexual mode of transmission Hepatitis A,B,C Profile 02/09/25 Z11.3 - Encounter for screening for infections with a predominantly sexual mode of transmission Referrals Infectious Disease Referral A53.9 - Syphilis, unspecified Medications: Discontinued ibuprofen Discontinued Reason: Patient Completed Course 600 mg PO Q6H PRN 30 tabs 0RF fever or pain
[2025-02-09 11:48] VITALS: BP 134/74; PULSE 75; RESP 13; TEMP 36.3; O2SAT 96; BMI 47.0
== END 2025-02-09 12:43 | disposition home or self-care (01) ==
LOC: HO.HMCFM 11:42
PROVIDERS: PCP Nurse Practitioner Family; Visit Provider Nurse Practitioner Family
DX: Z20.2 Contact with and (suspected) exposure to infections with a predominantly sexual mode of transmission (principal); A53.9 Syphilis, unspecified; N28.1 Cyst of kidney, acquired; J41.0 Simple chronic bronchitis; K76.0 Fatty (change of) liver, not elsewhere classified; E78.00 Pure hypercholesterolemia, unspecified; I10 Essential (primary) hypertension; G47.33 Obstructive sleep apnea (adult) (pediatric); S83.241S Other tear of medial meniscus, current injury, right knee, sequela

== ENCOUNTER 2025-02-09 11:41 | Outpatient (REF) | payer OTHER, SELFPAY | END 2025-02-09 11:42 | disposition home or self-care (01) | LOC: HO.LNP 11:41 | PROVIDERS: PCP Nurse Practitioner Family; Visit Provider Nurse Practitioner Family | DX: A53.9 Syphilis, unspecified (principal); N28.1 Cyst of kidney, acquired; J41.0 Simple chronic bronchitis; K76.0 Fatty (change of) liver, not elsewhere classified; E78.00 Pure hypercholesterolemia, unspecified; I10 Essential (primary) hypertension; G47.33 Obstructive sleep apnea (adult) (pediatric); S83.241S Other tear of medial meniscus, current injury, right knee, sequela; Z20.2 Contact with and (suspected) exposure to infections with a predominantly sexual mode of transmission | CPT/HCPCS: 96127; 99212 ==

== ENCOUNTER 2025-02-09 12:15 | Outpatient (REF) | payer OTHER, SELFPAY ==
[2025-02-09 14:59] LABS: Anion Gap 11 (12-20); Blood Urea Nitrogen 17 mg/dL (9-16); Calcium 8.8 mg/dL (8.4-10.2); Carbon Dioxide 27 mmol/L (22-29); Chloride 107 mmol/L (96-108); Estimated Glomerular Filt Rate > 60; Glucose Random 104 mg/dL (60-115); Potassium 4.2 mmol/L (3.3-5.1); Sodium 141 mmol/L (135-145)
[2025-02-09 16:09] LABS: CT PCR NOT DETECTED (Not Detect.); NG PCR NOT DETECTED (Not Detect.)
[2025-02-09 20:07] LABS: Appearance Urine Turbid; Color Urine Yellow; Glucose Urine UA Negative (Negative); Leukocyte Esterase Urine Negative (Negative); Nitrite Urine Negative (Negative); Specific Gravity - Urine 1.025 (1.005-1.025); Urine Blood Negative (Negative); Urine Ketones Negative (Negative); Urine Protein Negative (Neg-Trace)
[2025-02-10 04:27] LABS: Syphilis Screen Reactive (Nonreactive)
[2025-02-10 04:59] LABS: HBc Num1 0.06 S/CO (0.00-0.79); HBsAGNum1 0.26 S/CO (0.00-0.99); HIV AB/AG Nonreactive (Nonreactive); HIV Num 1 0.12 S/CO (0.00-0.99); Hepatitis A Antibody IgM 0.15 Index (0-0.79); Hepatitis B Core Antibody Nonreactive (Nonreactive); Hepatitis B Surface Antigen Negative (Negative); ~HepC Num1 0.16 S/CO (0.00-0.79); ~Hepatitis A Antibody IgM Nonreactive (Nonreactive); ~Hepatitis B Surface Antibody NONREACTIVE (Nonreactive); ~Hepatitis C Antibody Nonreactive (Nonreactive)
[2025-02-14 14:25] LABS: RPR Quantitative Reactive 1:1 (Nonreactive); T.Pallidum Particle Agg Test Reactive (Nonreactive)
== END 2025-02-09 12:16 | disposition home or self-care (01) ==
LOC: HO.WFDLDS 12:15
PROVIDERS: Referring Provider Internal Medicine Hypertension Specialist; Visit Provider Nurse Practitioner Family
DX: Z11.3 Encounter for screening for infections with a predominantly sexual mode of transmission (principal); I10 Essential (primary) hypertension; R80.9 Proteinuria, unspecified
CPT/HCPCS: 36415; 80048; 81003; 86592; 86704; 86706; 86709; 86780; 86803; 87340; 87389; 87491; 87591

== ENCOUNTER 2025-02-11 11:49 | Emergency (ER) | payer OTHER, SELFPAY ==
--- NOTE | ~2025-02-11 | XR_ITS ---
EXAMINATION: XR CHEST CLINICAL INFORMATION: SOB COMPARISON: Numerous prior exams, most recently 01/21/2025, and dating back to 07/01/2023. TECHNIQUE: 2 views of the chest were obtained. FINDINGS: There is cardiac enlargement. Mediastinal and hilar contours appear normal. Mildly prominent vessels in the hilar regions, suggesting mild vascular congestion. Lungs are clear bilaterally. No consolidations. No effusion or pneumothorax. On the lateral projection, nodular opacity is likely related to healing rib fracture on the right side. Healing/healed rib fracture right lower thorax. No acute bony abnormalities. No soft tissue abnormalities. XR/XR chest 2V IMPRESSION: Cardiomegaly. No active pulmonary disease identified. Electronically signed by: Rajinder Leroy MD 02/11/2025 12:38 PM EDT
[2025-02-11 12:03] VITALS: BP 152/77; PULSE 97; RESP 22; TEMP 37.1; O2SAT 97; BMI 47.0
--- NOTE | 2025-02-11 12:04 | ED.GENADULT ---
HPI - General Adult General Chief complaint: Upper Respiratory Symptoms Stated complaint: SOB Time Seen by Provider: 02/11/25 12:51 Source: patient, RN notes reviewed and manager program Mode of arrival: ambulatory Limitations: language barrier History of Present Illness ED Provider: Waleska Banks PA-C HPI narrative: This is a 54-year-old Stateless-speaking male who presents emergency department with concerns for ongoing cough, congestion, sore throat, wheezing, shortness of breath for the last 2 weeks. Patient reports that the cough is productive. He has been using his inhaler at home which has provided him with some relief. He denies any fevers, chills, chest pain, abdominal pain, nausea, vomiting or diarrhea. He does report some wheezing. Denies any sick contacts. No other complaints or concerns at this time. MD complaint: Cough, congestion Onset (ago): week(s) Radiation: non-radiation Quality: aching Pain Consistency: constant Relieving factors: none Exacerbating factors: none Associated symptoms: denies other symptoms Treatments prior to arrival: none Related Data Home Medications ?Medication ?Instructions ?Recorded ?Confirmed fluoxetine 20 mg capsule 20 mg PO DAILY 03/05/24 02/09/25 lorazepam 0.5 mg tablet mg PO PRN 03/05/24 02/09/25 buspirone 10 mg tablet 10 mg PO BID 04/02/24 02/09/25 melatonin 3 mg tablet 3 mg PO BEDTIME 04/02/24 02/09/25 ziprasidone HCl 20 mg capsule 20 mg PO BID 04/02/24 02/09/25 Previous Rx's ?Medication ?Instructions ?Recorded blood pressure kit-extra large #1 ea 11/20/22 miscellaneous medical supply See Rx Instructions miscellaneous 11/20/22 .COMPLEX #1 ea docusate sodium 100 mg capsule 200 mg (2 x 100 mg) PO BEDTIME 01/30/24 (Colace) #180 caps loratadine 10 mg tablet 10 mg PO DAILY #90 tabs 01/30/24 ibuprofen 600 mg tablet 600 mg PO Q6H PRN pain #14 tabs 06/08/24 salicylic acid 3 % shampoo (Selsun 1 appl topical 2XW PRN itching 07/14/24 Blue (salicylic acid)) #325 mL atorvastatin 80 mg tablet 80 mg PO QPM #90 tabs 09/08/24 mecobalamin (vitamin B12) 1,000 2,000 mcg (2 x 1,000 mcg) PO DAILY 09/08/24 mcg chewable tablet (B12 Active) #180 tabs pantoprazole 20 mg tablet,delayed 20 mg PO BID #60 tabs 12/10/24 release peg 3350-electrolytes 236 240 ml PO Q10M colonoscopy #4,000 12/21/24 gram-22.74 gram-6.74 gram-5.86 mL gram solution (Golytely) valsartan 80 mg tablet 80 mg PO BID 90 days #180 tabs 01/12/25 albuterol sulfate 1.25 mg/3 mL 1.25 mg (3 mL) inhalation Q4H 1 01/14/25 solution for nebulization month #90 mL albuterol sulfate 90 mcg/actuation 2 puff inhalation Q4-6H PRN 01/14/25 aerosol inhaler shortness of breath or wheezing #8.5 grams tiotropium 2.5 mcg-olodaterol 2.5 2 puff inhalation DAILY #4 grams 01/14/25 mcg/actuation mist for inhalation (Stiolto Respimat) azithromycin 250 mg tablet See Rx Instructions PO .COMPLEX #6 02/11/25 tabs Allergies Allergy/AdvReac Type Severity Reaction Status Date / Time lisinopril AdvReac Intermediate Cough, Verified 02/11/25 12:07 headache Review of Systems Review of Systems: Constitutional: No Weight loss, No Fever, No Chills, No Night Sweats, No Fatigue, No Malaise ENT/Mouth: No Hearing loss, No Ear Pain, No Nasal Congestion, No Sinus Pain, No Hoarseness, No sore throat, No Rhinorrhea, No Swallowing Difficulty Eyes: No Eye Pain, No Swelling, No Redness, No Foreign Body, No Discharge, No Vision Changes Cardiovascular: No Chest Pain, No SOB, No Dyspnea on Exertion, No Orthopnea, No Edema, No Palpitations Respiratory: No Cough, No Sputum, No Wheezing, No Smoke Exposure, No Dyspnea Gastrointestinal: No Nausea, No Vomiting, No Diarrhea, No Constipation, No Abdominal pain, No Hematochezia, No Melena Genitourinary: No irregular bleeding, No Dysuria, No Urinary Frequency, No Hematuria, No Urinary Incontinence/retention, No Urgency, No Flank Pain, No Urinary Flow Changes, No Hesitancy Musculoskeletal: No joint pain, No Myalgias, No Joint Swelling Skin: No Skin Lesions, No rash Neuro: No Weakness, No Numbness, No Paresthesias, No Loss of Consciousness, No Dizziness, No Headache Psych: No Anxiety/Panic, No Depression, No SI/HI/AH/VH, No Social Issues, Heme/Lymph: No Bruising, No Bleeding,No Lymphadenopathy Endocrine: No Polyuria, No Polydipsia, No Temperature Intolerance Yes all other systems are reviewed and are negative Constitutional: Constitutional: Reports as per HPI [facility] Past Medical History Medical History Tachycardia Breast mass, left Bilateral leg cramps Sore throat Breast mass, right Cyst of right breast Impacted cerumen, left ear Low back strain Morbid obesity Rib fractures Pre-op evaluation Elevated blood pressure reading Infected tooth Chronic constipation Normal physical exam Asthma, mild intermittent, poorly controlled Poor historian Asthma attacks lasting more than 24 hours Left upper quadrant abdominal pain Asthma Surgical History History of surgery on lower extremity History of arthroscopic knee surgery Subareolar mass of left breast Umbilical hernia, incarcerated (12/12/23) History of excision of mass (07/31/23) History of surgery on arm Hx of cholecystectomy Family History Family History Other Substance abuse Social History Social History Household Members: Family Housing: House Are you a primary career services coordinator to a significant other at home: No Do you presently have visiting nurse or other home services: No Unable to assess alcohol history related to: Unable to respond Alcohol intake: never Patient Tobacco Use Status: Former Tobacco user Tobacco use type: Cigarette Cigarette Packs Per Day: 4 Cigarettes Per Day: 80.0 Years Smoked: 30 Smoked in Last 30 Days: No e-Cigarette/Vaping Use: Never Used Second Hand Smoke Exposure: No Use of substances other than those prescribed or required for medical reasons: No Advance Directives: No Advance Directives Information Provided: Yes service: No Current occupational status: employed and unemployed Current occupation: works nights Current occupational exposures/hazards: No Gender identity: Male Cognitive needs: No Hearing needs: Yes Vision needs: Yes Physical Exam ED Vital Signs: Vital Signs - 24 hr 02/11/25 12:03 02/11/25 13:59 02/11/25 16:02 Temperature 98.8 F 97.6 F 97.6 F Pulse Rate 97 77 77 Respiratory Rate 22 H 16 16 Blood Pressure 152/77 H 170/84 H 170/84 H Pulse Oximetry 97 96 96 Oxygen Delivery Method Room Air Room Air Room Air BMI result Body Mass Index 47.0 Const General: cooperative, comfortable and no acute distress Orientation/consciousness: patient oriented x3 Limitations: no limitations HENMT Head: Yes normal to inspection, Yes normocephalic and Yes atraumatic Ears: hearing grossly normal bilaterally and TM's normal bilaterally General nose exam: Normal external nose present Face and sinus: Yes normal facial exam Mouth: Normal oral and palatal mucosa present, oropharynx normal and moist mucous membranes Throat: Yes posterior oropharynx normal Eyes General: appearance normal, both eyes and all related structures Eyelids: Yes eyelids normal Conjunctivae: conjunctivae normal Sclerae: sclerae normal Pupils: Equal, round and reactive pupils present EOM: EOMs intact bilaterally Neck Neck: Yes normal visual inspection, Yes full ROM and Yes no lymphadenopathy Lymphatic: no lymphadenopathy noted Chest Chest palpation & inspection: normal inspection of the chest Resp Effort & Inspection: normal respiratory effort and able to speak in complete sentences Auscultation: clear to auscultation bilaterally, no crackles, no rales, no rhonchi and no wheezes Cardio Rate: regular rate Rhythm: regular rhythm Heart sounds: S1 normal heart sound present and S2 normal heart sound present GI Other: Abdomen is soft, nontender, nondistended Inspection: Yes normal to inspection Skin General skin exam: no rashes or lesions noted Trauma: no lacerations or abrasions Wounds: no wounds Neuro General: patient oriented x3 and moves all extremities Cranial nerves: Yes Equal, round and reactive pupils present Extrem General: Yes normal to inspection Right upper extremity: normal to inspection Left upper extremity: normal to inspection Right lower extremity: normal to inspection Left lower extremity: normal to inspection Course Course Course Narrative: This is a rapid medical exam performed by Hema Guzman NP: Additional HPI, ROS, PE not included below will be deferred to primary provider. 54 yo male greek speaking with manager program with PMHx of MAEGAN, HTN, HLD, asthma, presents to the ED due to hoarseness of the throat, difficulty breathing, and productive cough, that started 2 weeks ago. States he feels the symptoms have been worsening since last night (02/10). He reports these symptoms are causing his difficulty sleeping at night, he is using his C-PAP machine at night for MAEGAN. He reports increased phlegm and an episode of blood tinged sputum. He states he has been using Vicks without relief. PE: A&O x3, no accessory muscle use for breathing, Lung exam- diminished breath sounds throughout Plan: Labs, viral swabs, EKG, CXR Medications Administered Discontinued Medications Generic Name Dose Route Start Last Admin Trade Name Freq PRN Reason Stop Dose Admin Penicillin G Benzathine 2,400,000 unit 02/11/25 13:40 02/11/25 14:13 Penicillin G Benzathine 2,400,000 Unit/4 Ml Syringe IM 02/11/25 13:41 2,400,000 unit ONCE ONE Administration Medical Decision Making Medical Decision Making [facility] Narrative: This is a 54-year-old Stateless-speaking male, with a past medical history of asthma, who presents emergency department with concerns for ongoing cough, congestion, sore throat, wheezing, shortness of breath for the last 2 weeks. on arrival, patient mildly hypertensive at 152/77, tachypneic at 22, he is afebrile. Lungs are clear to auscultation, he is speaking in full sentences under no acute distress. labs were obtained prior to my assessment, he has no leukocytosis, he does have a microcytic anemia with an H&H of 13 and 41.1, similar to previous. Chemistry shows no significant electrolyte derangement. He tested negative for COVID, flu, RSV and strep. I added on a troponin and BNP. X-ray shows cardiomegaly otherwise no acute consolidations. EKG normal sinus rhythm, no STEMI or acute findings seen. Primary care physician had called the emergency room and spoke to nurse stating that patient tested positive for syphilis 2 days ago, and they have been attempting to reach out to him however he is not answering his phone. I discussed with patient that he did test positive for syphilis, he has no history of this. He states that he was sexually active several months ago. he is asymptomatic, no lesions, no profound headache, or neurologic changes. At this time, will treat with 1 time dose of pen G IM. Stressed the importance of telling his partners that he tested positive for this for their knowledge and for them to get treatment. He understands this. Awaiting troponin at this time. We will continue to closely monitor. troponin is negative. Discussed overall workup with patient. Will treat as an upper respiratory infection, given length of symptoms, will treat with course of azithromycin. Also discussed with patient that this may be A type of allergic rhinitis. Advised to follow-up with his primary care physician. Patient stable for discharge. Differential Diagnosis Differential Diagnoses: The differential diagnosis associated with the presentation includes URI, sinusitis, strep pharyngitis, COVID, flu, RSV, pneumonia, CHF Admission/Observation Consideration of admission/observation: Escalation of care including admission/observation considered Lab Data [facility] Lab Attestation statement: I reviewed the patient's lab results. see MDM and course 02/11/25 12:37 02/11/25 12:37 Labs: Lab Results 02/11/25 02/11/25 Range/Units 12:37 13:49 WBC 6.6 (4.8-10.8) X10*3/uL RBC 5.11 (4.60-5.80) X10*6/uL Hgb 13.0 L (14.0-18.0) g/dl Hct 40.1 L (42.0-52.0) % MCV 78.5 L (80.0-98.0) fL MCH 25.4 L (27.0-33.0) pg MCHC 32.4 (31.0-36.0) g/dl RDW 16.5 H (11.0-16.0) % Plt Count 334 (160-400) X10*3/uL MPV 9.5 (9.4-12.4) fL Immature Gran % (Auto) 0.8 H (0.0-0.4) % Neut % (Auto) 53.3 (45-73) % Lymph % (Auto) 30.0 (20-40) % Kaufman % (Auto) 10.4 (2-11) % Eos % (Auto) 4.6 H (0-4) % Baso % (Auto) 0.9 (0-2) % Lymph # (Auto) 2.0 (1.2-4.9) X10*3/uL Kaufman # (Auto) 0.7 (0.1-1.2) X10*3/uL Eos # (Auto) 0.3 (0.0-0.4) X10*3/uL Baso # (Auto) 0.1 (0.0-0.2) X10*3/uL Abs Immat Gran (auto) 0.05 H (0.00-0.03) X10*3/uL Absolute Neuts (auto) 3.5 (2.0-8.3) x10*3/uL Absolute Nucleated RBC 0.000 (0.0-0.012) X10*3/uL Nucleated RBC % (auto) 0.0 (0.0-0.2) /100WBC Sodium 140 (135-145) mmol/L Potassium 4.2 (3.3-5.1) mmol/L Chloride 107 (96-108) mmol/L Carbon Dioxide 26 (22-29) mmol/L Anion Gap 11 L (12-20) BUN 16 (9-16) mg/dL Creatinine 0.73 (0.5-1.4) mg/dL Estim Creat Clear Calc 136.2 Estimated GFR > 60 Random Glucose 127 H (60-115) mg/dL Calcium 9.3 (8.4-10.2) mg/dL Magnesium 1.7 (1.6-2.6) mg/dL Total Bilirubin 0.3 (0.0-1.0) mg/dL AST 23 (5-37) U/L ALT 24 (0-40) U/L Alkaline Phosphatase 65 (39-117) U/L Troponin I High Sens 2.9 (<3.5-35.0) ng/L B-Natriuretic Peptide 25 (<100) pg/mL Total Protein 7.1 (6.5-8.0) g/dL Albumin 4.1 (3.5-5.0) g/dL Influenza Type A (PCR) NEGATIVE (Negative) Influenza Type B (PCR) NEGATIVE (Negative) RSV RNA Qual (PCR) NEGATIVE (Negative) SARS-CoV-2 RNA (RT-PCR) NEGATIVE (Negative) S. pyogenes GrpA HAN Negative (Negative) Independent Interpretation I performed an independent interpretation of an: EKG Interpretation: Normal sinus rhythm at a ventricular rate of 66 beats per minute, PA interval 198, QT QTC 434/454, no STEMI Radiology Impression Discussion of test interpretation with radiology: I have reviewed the radiologist's reading. Radiologist Impression: FINDINGS: There is cardiac enlargement. Mediastinal and hilar contours appear normal. Mildly prominent vessels in the hilar regions, suggesting mild vascular congestion. Lungs are clear bilaterally. No consolidations. No effusion or pneumothorax. On the lateral projection, nodular opacity is likely related to healing rib fracture on the right side. Healing/healed rib fracture right lower thorax. No acute bony abnormalities. No soft tissue abnormalities. XR/XR chest 2V IMPRESSION: Cardiomegaly. No active pulmonary disease identified. Electronically signed by: Rajinder Leroy MD 02/11/2025 12:38 PM EDT RP Discharge Plan Discharge Clinical Impression: Acute upper respiratory infection, Syphilis Patient Disposition: Home, Self-Care Instructions: Pharyngitis (ED), Upper Respiratory Infection (ED) Additional Instructions: You were seen in the emergency department today. You tested negative for COVID, flu, RSV, and strep throat. You likely have a virus that is causing you to have the symptoms. Your blood work was reassuring. Your chest x-ray does not show any signs of pneumonia. We are starting you on an antibiotic, please take full course even if your symptoms improve. Drink plenty of fluids and get plenty of rest. You did test positive for syphilis in your outpatient appointment, you received a 1 time dose of penicillin, which is the treatment for syphilis. You need to follow-up with your primary care physician. Please tell also tell all your sexual contacts that you tested positive for this as they also need treatment. If any new or worsening symptoms occur including but not limited to severe shortness of breath, chest pain, wheezing, please seek emergent care. Prescriptions: New azithromycin 250 mg tablet See Rx Instructions PO .COMPLEX Qty: 6 0RF Rx Instructions: For 250 mg dose pack: take 500 mg today (day 1), then 250 mg for 4 days (days 2-5) No Action valsartan 80 mg tablet 80 mg PO BID 90 Days Qty: 180 0RF albuterol sulfate 90 mcg/actuation HFA aerosol inhaler 2 puff inhalation Q4-6H PRN (Reason: shortness of breath or wheezing) Qty: 8.5 1RF Stiolto Respimat 2.5-2.5 mcg/actuation mist 2 puff inhalation DAILY Qty: 4 6RF albuterol sulfate 1.25 mg/3 mL solution for nebulization 1.25 mg inhalation Q4H 30 Days Qty: 90 6RF ibuprofen 600 mg tablet 600 mg PO Q6H PRN (Reason: pain) Qty: 14 0RF docusate sodium [Colace] 100 mg capsule 200 mg PO BEDTIME Qty: 180 2RF loratadine 10 mg tablet 10 mg PO DAILY Qty: 90 0RF (DME) blood pressure kit-extra large Kit See Rx Instructions .Route Qty: 1 0RF Rx Instructions: As directed miscellaneous medical supply Misc See Rx Instructions miscellaneous .COMPLEX Qty: 1 0RF Rx Instructions: air purifier for personal use as directed; ziprasidone HCl 20 mg capsule 20 mg PO BID buspirone 10 mg tablet 10 mg PO BID melatonin 3 mg tablet 3 mg PO BEDTIME Selsun Blue (salicylic acid) 3 % shampoo 1 appl topical 2XW PRN (Reason: itching) Qty: 325 12RF Rx Instructions: leave on for 8 to14 hrs before washing off pantoprazole 20 mg tablet,delayed release (DR/EC) 20 mg PO BID Qty: 60 2RF lorazepam 0.5 mg tablet PO PRN fluoxetine 20 mg capsule 20 mg PO DAILY atorvastatin 80 mg tablet 80 mg PO QPM Qty: 90 2RF mecobalamin (vitamin B12) [B12 Active] 1,000 mcg tablet,chewable 2,000 mcg PO DAILY Qty: 180 3RF peg 3350-electrolytes [Golytely] 236-22.74-6.74 -5.86 gram recon soln 240 ml PO Q10M Qty: 4000 0RF Rx Instructions: as per split prep instructions, until fecal effluent is clear Stand Alone Forms: Work/School Release Interventions: ED Discharge Assessment Last Done: 02/11/25 16:02 Discharge Date/Time: 02/11/25 16:02 Print Language: Stateless
--- NOTE | 2025-02-11 12:11 | ECG_ITS ---
Test Reason : sob Blood Pressure : */* mmHG Vent. Rate : 66 BPM Atrial Rate : 66 BPM P-R Int : 198 ms QRS Dur : 70 ms QT Int : 434 ms P-R-T Axes : 37 20 27 degrees QTcB Int : 454 ms Normal sinus rhythm Nonspecific T wave abnormality Abnormal ECG When compared with ECG of 04-Sep-2024 17:32, No significant change was found Referred By: Sarah Guzman Electronically Signed By: MARKIE IVORY
[2025-02-11 12:46] LABS: MANUAL DIFF FLAG NO
[2025-02-11 12:51] LABS: Basophils Absolute Auto 0.1 X10*3/uL (0.0-0.2); Basophils Percent Auto 0.9 % (0-2); Eosinophils Absolute Auto 0.3 X10*3/uL (0.0-0.4); Eosinophils Percent Auto 4.6 % (0-4); Hematocrit 40.1 % (42.0-52.0); Imm Gran Abs Auto 0.05 X10*3/uL (0.00-0.03); Imm Gran Pct Auto 0.8 % (0.0-0.4); Mean Corpuscular HGB Conc 32.4 g/dl (31.0-36.0); Mean Corpuscular Hemoglobin 25.4 pg (27.0-33.0); Mean Corpuscular Volume 78.5 fL (80.0-98.0); Mean Platelet Volume 9.5 fL (9.4-12.4); Monocytes Absolute Auto 0.7 X10*3/uL (0.1-1.2); Monocytes Percent Auto 10.4 % (2-11); Neutrophils Absolute Auto 3.5 x10*3/uL (2.0-8.3); Neutrophils Percent Auto 53.3 % (45-73); Platelet Count 334 X10*3/uL (160-400); Red Blood Count 5.11 X10*6/uL (4.60-5.80); Red Cell Distribution Width 16.5 % (11.0-16.0); White Blood Count 6.6 X10*3/uL (4.8-10.8)
[2025-02-11 13:10] LABS: Alanine Aminotransferase 24 U/L (0-40); Albumin Level 4.1 g/dL (3.5-5.0); Alkaline Phosphatase 65 U/L (39-117); Anion Gap 11 (12-20); Aspartate Amino Transferase 23 U/L (5-37); Bilirubin Total 0.3 mg/dL (0.0-1.0); Blood Urea Nitrogen 16 mg/dL (9-16); Calcium 9.3 mg/dL (8.4-10.2); Carbon Dioxide 26 mmol/L (22-29); Chloride 107 mmol/L (96-108); Creatinine Clr Calc Pharmacy 136.2; Estimated Glomerular Filt Rate > 60; Glucose Random 127 mg/dL (60-115); Magnesium 1.7 mg/dL (1.6-2.6); Potassium 4.2 mmol/L (3.3-5.1); Sodium 140 mmol/L (135-145); Total Protein 7.1 g/dL (6.5-8.0)
[2025-02-11 13:31] LABS: Influenza A PCR NEGATIVE (Negative); Influenza B PCR NEGATIVE (Negative); Resp Syncy Virus RNA Qual PCR NEGATIVE (Negative); SARS COV2 PCR INHOUSE NEGATIVE (Negative)
[2025-02-11 13:59] VITALS: BP 170/84; PULSE 77; RESP 16; TEMP 36.4; O2SAT 96
[2025-02-11 14:01] LABS: IDNOW Serial# 58CA691E; Strep A Nucleic Acid Negative (Negative)
[2025-02-11] MEDS: Penicillin G Benzathine 2,400,000 UNIT/4 ML SYRINGE 2400000 UNIT IM (14:13)
[2025-02-11 14:18] LABS: B Type Natriuretic Peptide 25 pg/mL (<100)
[2025-02-11 14:51] LABS: Troponin-I High Sensitivity 2.9 ng/L (<3.5-35.0)
[2025-02-11 16:02] VITALS: BP 170/84; PULSE 77; RESP 16; TEMP 36.4; O2SAT 96
== END 2025-02-11 16:02 | disposition home or self-care (01) ==
PROVIDERS: Physician Assistant Medical; Registered Nurse Emergency; Emergency Provider Emergency Medicine Emergency Medical Services; PCP Nurse Practitioner Family
DX: J06.9 Acute upper respiratory infection, unspecified (principal); A53.9 Syphilis, unspecified; R05.9 Cough, unspecified; J02.9 Acute pharyngitis, unspecified; Z03.818 Encounter for observation for suspected exposure to other biological agents ruled out; J45.909 Unspecified asthma, uncomplicated
CPT/HCPCS: 0241U; 36415; 71046; 80053; 83735; 83880; 84484; 85025; 87651; 93005; 96372; 99284; J0561

== ENCOUNTER → 2025-02-11 12:11 | Outpatient (BNV) | payer OTHER, SELFPAY | PROVIDERS: Emergency Provider Emergency Medicine Emergency Medical Services; PCP Nurse Practitioner Family; Visit Provider Internal Medicine | DX: R94.31 Abnormal electrocardiogram [ECG] [EKG] (principal); R06.02 Shortness of breath | CPT/HCPCS: 93010 ==

== ENCOUNTER → 2025-02-11 12:12 | Outpatient (BNV) | payer OTHER, SELFPAY | PROVIDERS: PCP Nurse Practitioner Family; Visit Provider Radiology Diagnostic Radiology | DX: I51.7 Cardiomegaly (principal) | CPT/HCPCS: 71046 ==

== ENCOUNTER → 2025-02-19 13:28 | Outpatient (BNVA) | payer OTHER, SELFPAY | PROVIDERS: PCP Nurse Practitioner Family; Visit Provider Internal Medicine ==

== ENCOUNTER 2025-02-19 13:58 | Emergency (ER) | payer OTHER, SELFPAY ==
--- NOTE | 2025-02-19 14:21 | PC.NURSE ---
Staff working to figure out where the patients injection is, missed appointment at 1336
[2025-02-19 14:48] VITALS: BP 167/125; PULSE 95; RESP 18; TEMP 36.2; O2SAT 94; BMI 46.9
--- NOTE | 2025-02-19 15:04 | ED_ITS ---
HPI - General Adult General Chief complaint: Recheck/Abnormal Lab/Rx Stated complaint: Penicillin Injection Time Seen by Provider: 02/19/25 14:52 Source: patient, RN notes reviewed and old records reviewed Mode of arrival: ambulatory History of Present Illness ED Provider: Gracie Schumacher PA-C HPI narrative: 54-year-old Swedish-speaking male with a past medical history recently testing positive for syphilis, s/p treatment in our ED with penicillin G on 02/11/2025, presenting to ED for ?syphilis injection. Patient states he was scheduled for an appointment today, presented upstairs however was told to come to the emergency department. Patient unclear about who sent him here or what exactly he needs. Does confirm he received IM injection in the ED on 02/11. Per ED note from 02/11 patient's PCP called the ED to inform of patient's positive outpatient syphilis testing, patient is asymptomatic, was given 1 time dose of pen G IM in the ED. Related Data Home Medications ?Medication ?Instructions ?Recorded ?Confirmed fluoxetine 20 mg capsule 20 mg PO DAILY 03/05/24 02/09/25 lorazepam 0.5 mg tablet mg PO PRN 03/05/24 02/09/25 buspirone 10 mg tablet 10 mg PO BID 04/02/24 02/09/25 melatonin 3 mg tablet 3 mg PO BEDTIME 04/02/24 02/09/25 ziprasidone HCl 20 mg capsule 20 mg PO BID 04/02/24 02/09/25 Previous Rx's ?Medication ?Instructions ?Recorded blood pressure kit-extra large #1 ea 11/20/22 miscellaneous medical supply See Rx Instructions miscellaneous 11/20/22 .COMPLEX #1 ea docusate sodium 100 mg capsule 200 mg (2 x 100 mg) PO BEDTIME 01/30/24 (Colace) #180 caps loratadine 10 mg tablet 10 mg PO DAILY #90 tabs 01/30/24 ibuprofen 600 mg tablet 600 mg PO Q6H PRN pain #14 tabs 06/08/24 salicylic acid 3 % shampoo (Selsun 1 appl topical 2XW PRN itching 07/14/24 Blue (salicylic acid)) #325 mL atorvastatin 80 mg tablet 80 mg PO QPM #90 tabs 09/08/24 mecobalamin (vitamin B12) 1,000 2,000 mcg (2 x 1,000 mcg) PO DAILY 09/08/24 mcg chewable tablet (B12 Active) #180 tabs pantoprazole 20 mg tablet,delayed 20 mg PO BID #60 tabs 12/10/24 release peg 3350-electrolytes 236 240 ml PO Q10M colonoscopy #4,000 12/21/24 gram-22.74 gram-6.74 gram-5.86 mL gram solution (Golytely) valsartan 80 mg tablet 80 mg PO BID 90 days #180 tabs 01/12/25 albuterol sulfate 1.25 mg/3 mL 1.25 mg (3 mL) inhalation Q4H 1 01/14/25 solution for nebulization month #90 mL albuterol sulfate 90 mcg/actuation 2 puff inhalation Q4-6H PRN 01/14/25 aerosol inhaler shortness of breath or wheezing #8.5 grams tiotropium 2.5 mcg-olodaterol 2.5 2 puff inhalation DAILY #4 grams 01/14/25 mcg/actuation mist for inhalation (Stiolto Respimat) azithromycin 250 mg tablet See Rx Instructions PO .COMPLEX #6 02/11/25 tabs Allergies Allergy/AdvReac Type Severity Reaction Status Date / Time lisinopril AdvReac Intermediate Cough, Verified 02/19/25 14:51 headache Review of Systems Review of Systems: Yes all other systems are reviewed and are negative Constitutional: Constitutional: Reports as per [facility] Past Medical History Attestation statement: The following information was validated with the patient. Source: old records reviewed Medical History Tachycardia Breast mass, left Bilateral leg cramps Sore throat Breast mass, right Cyst of right breast Impacted cerumen, left ear Low back strain Morbid obesity Rib fractures Pre-op evaluation Elevated blood pressure reading Infected tooth Chronic constipation Normal physical exam Asthma, mild intermittent, poorly controlled Poor historian Asthma attacks lasting more than 24 hours Left upper quadrant abdominal pain Asthma Surgical History History of surgery on lower extremity History of arthroscopic knee surgery Subareolar mass of left breast Umbilical hernia, incarcerated (12/12/23) History of excision of mass (07/31/23) History of surgery on arm Hx of cholecystectomy Family History Family History Other Substance abuse Social History Social History Household Members: Family Housing: House Are you a primary care manager cna to a significant other at home: No Do you presently have visiting nurse or other home services: No Unable to assess alcohol history related to: Unable to respond Alcohol intake: never Patient Tobacco Use Status: Former Tobacco user Tobacco use type: Cigarette Cigarette Packs Per Day: 4 Cigarettes Per Day: 80.0 Years Smoked: 30 e-Cigarette/Vaping Use: Never Used Second Hand Smoke Exposure: No Advance Directives: No Advance Directives Information Provided: Yes Do you have a plan to hurt others: No Plan service: No Current occupational status: employed and unemployed Current occupation: works nights Current occupational exposures/hazards: No Gender identity: Male Cognitive needs: No Hearing needs: Yes Vision needs: Yes Physical Exam ED Vital Signs: Vital Signs - 24 hr 02/19/25 14:48 02/19/25 15:14 Temperature 97.1 F 97.1 F Pulse Rate 95 95 Respiratory Rate 18 18 Blood Pressure 167/125 H 167/125 H Pulse Oximetry 94 94 Oxygen Delivery Method Room Air Room Air BMI result Body Mass Index 46.9 Const General: cooperative, healthy appearing and no acute distress Orientation/consciousness: patient oriented x3 Limitations: no limitations HENMT Head: Yes normal to inspection and Yes atraumatic Ears: hearing grossly normal bilaterally General nose exam: Normal external nose present Face and sinus: Yes normal facial exam Eyes General: appearance normal, both eyes and all related structures EOM: EOMs intact bilaterally Neck Neck: Yes normal visual inspection and Yes no meningeal signs Resp Effort & Inspection: normal respiratory effort and no respiratory distress Cardio Rate: regular rate Skin Rashes: no rashes Wounds: no wounds Neuro General: patient oriented x3, gait normal, tone normal, moves all extremities, no meningeal signs, no focal motor deficits and CN's II-XI intact bilaterally Cranial nerves: Yes CN's II-XII intact bilaterally Gait exam (Neuro): Normal gait present Extrem General: Yes normal to inspection Course Course Course Narrative: -[id number]-- Dr. Calderón messaged back and informed that [facility] has patient has only in unknown duration and wanted him to receive 3 weekly IM penicillin G injections. Patient called and requested return to the ED for injection. He verbalized he would return 1548--patient returned to the ED - will receive IM PCN G 2.4 mu -1549-- BP much improved w/o intervention - 134/90 Medical Decision Making Medical Decision Making MDM Narrative: 54-year-old Swedish-speaking male with a past medical history recently testing positive for syphilis, s/p treatment in our ED with penicillin G on 02/11/2025, presenting to ED for ?syphilis injection. Per ED note from 02/11 patient's PCP called the ED to inform of patient's positive outpatient syphilis testing, patient is asymptomatic, was given 1 time dose of pen G IM in the ED. patient very agitated/frustrated with coming to the ED and not knowing what is happening or what needs to happen. Angry, yelling at staff, pacing around the ED, threatening to leave. Denies taking his antihypertensives today. Denies headache or chest pain. Attempted to contact patient's PCP however they're currently on vacation. Sparks text message sent to infectious disease Dr. Calderón - have not heard back yet Case discussed with ED attending Dr. Jennings - per our understanding patient has been appropriately treated, & this is properly documented. No additional treatment indicated at this time. Patient is safe for discharge with PCP/infectious disease follow-up Hypertensive likely from anger/pacing & not taking medications today. Patient left ED prior to repeat blood pressure being obtained. Please refer to course for remaining clinical decision making, interpretation of labs/imaging results, and discussions with consultants and/or family members. Results discussed with patient including worrisome signs and symptoms and strict return precautions, and when to return to the emergency department. They verbalized understanding and feel safe for discharge at this time. Differential Diagnosis Differential Diagnoses: The differential diagnosis associated with the presentation includes As above Consult Healthcare Provider Management of the patient was discussed with: Asphalt Paving Superintendent (ID) External Record Review External record reviewed: Inpatient record, Office record, Outpatient record, Prior outpatient labs, Prior outpatient radiology, Primary care record and Outside ED record Tests considered The following testing was considered but not selected: As above Prescription Management I considered prescription management with: Antiviral Chronic Conditions Patient?s care impacted by: Other Social Determinants Patient?s care significantly limited by Social Determinants of Health including: Other Social Determinant of Health Discharge Plan Discharge Clinical Impression: Syphilis Instructions: Sexually Transmitted Diseases (ED) Additional Instructions: You need to follow up with infectious disease and your primary care doctor You are already treated for syphilis Prescriptions: No Action valsartan 80 mg tablet 80 mg PO BID 90 Days Qty: 180 0RF albuterol sulfate 90 mcg/actuation HFA aerosol inhaler 2 puff inhalation Q4-6H PRN (Reason: shortness of breath or wheezing) Qty: 8.5 1RF Stiolto Respimat 2.5-2.5 mcg/actuation mist 2 puff inhalation DAILY Qty: 4 6RF albuterol sulfate 1.25 mg/3 mL solution for nebulization 1.25 mg inhalation Q4H 30 Days Qty: 90 6RF ibuprofen 600 mg tablet 600 mg PO Q6H PRN (Reason: pain) Qty: 14 0RF azithromycin 250 mg tablet See Rx Instructions PO .COMPLEX Qty: 6 0RF Rx Instructions: For 250 mg dose pack: take 500 mg today (day 1), then 250 mg for 4 days (days 2-5) docusate sodium [Colace] 100 mg capsule 200 mg PO BEDTIME Qty: 180 2RF loratadine 10 mg tablet 10 mg PO DAILY Qty: 90 0RF (DME) blood pressure kit-extra large Kit See Rx Instructions .Route Qty: 1 0RF Rx Instructions: As directed miscellaneous medical supply Misc See Rx Instructions miscellaneous .COMPLEX Qty: 1 0RF Rx Instructions: air purifier for personal use as directed; ziprasidone HCl 20 mg capsule 20 mg PO BID buspirone 10 mg tablet 10 mg PO BID melatonin 3 mg tablet 3 mg PO BEDTIME Selsun Blue (salicylic acid) 3 % shampoo 1 appl topical 2XW PRN (Reason: itching) Qty: 325 12RF Rx Instructions: leave on for 8 to14 hrs before washing off pantoprazole 20 mg tablet,delayed release (DR/EC) 20 mg PO BID Qty: 60 2RF lorazepam 0.5 mg tablet PO PRN fluoxetine 20 mg capsule 20 mg PO DAILY atorvastatin 80 mg tablet 80 mg PO QPM Qty: 90 2RF mecobalamin (vitamin B12) [B12 Active] 1,000 mcg tablet,chewable 2,000 mcg PO DAILY Qty: 180 3RF peg 3350-electrolytes [Golytely] 236-22.74-6.74 -5.86 gram recon soln 240 ml PO Q10M Qty: 4000 0RF Rx Instructions: as per split prep instructions, until fecal effluent is clear Referrals: Malka Kumar NP [Primary Care Provider] - Josie Calderón MD [Physician] - 5 days Interventions: ED Discharge Assessment Last Done: 02/19/25 15:14 Print Language: Swedish
[2025-02-19 15:14] VITALS: BP 167/125; PULSE 95; RESP 18; TEMP 36.2; O2SAT 94
[2025-02-19 15:59] VITALS: BP 134/90; PULSE 94; RESP 16; O2SAT 95
[2025-02-19] MEDS: Penicillin G Benzathine 2,400,000 UNIT/4 ML SYRINGE 2400000 UNIT IM (16:10)
== END 2025-02-19 16:17 | disposition home or self-care (01) ==
PROVIDERS: Emergency Provider Emergency Medicine Emergency Medical Services; PCP Nurse Practitioner Family
DX: A53.9 Syphilis, unspecified (principal)
CPT/HCPCS: 96372; 99282; 99284; J0561

== ENCOUNTER 2025-02-26 08:09 | Emergency (ER) | payer OTHER, SELFPAY ==
[2025-02-26 08:13] VITALS: BP 145/89; PULSE 83; RESP 18; TEMP 37.1; O2SAT 95; BMI 41.8
--- NOTE | 2025-02-26 08:59 | ED_ITS ---
HPI - General Adult General Chief complaint: General Medical Stated complaint: Injection Time Seen by Provider: 02/26/25 08:53 Source: patient and framing manager (Stateless) Mode of arrival: ambulatory Limitations: language barrier (Stateless) History of Present Illness ED Provider: MARTINEZ SHAH PA-C HPI narrative: 54-year-old Stateless-speaking male with pmhx significant for asthma presents to the ED today requesting treatment for syphilis. Patient reports testing positive for syphilis at the beginning of this month. He has received 2 weekly doses of penicillin. He is here for his 3rd and final dose. No concerns or complaints at this time. Related Data Home Medications ?Medication ?Instructions ?Recorded ?Confirmed fluoxetine 20 mg capsule 20 mg PO DAILY 03/05/24 02/09/25 lorazepam 0.5 mg tablet mg PO PRN 03/05/24 02/09/25 buspirone 10 mg tablet 10 mg PO BID 04/02/24 02/09/25 melatonin 3 mg tablet 3 mg PO BEDTIME 04/02/24 02/09/25 ziprasidone HCl 20 mg capsule 20 mg PO BID 04/02/24 02/09/25 Previous Rx's ?Medication ?Instructions ?Recorded blood pressure kit-extra large #1 ea 11/20/22 miscellaneous medical supply See Rx Instructions miscellaneous 11/20/22 .COMPLEX #1 ea docusate sodium 100 mg capsule 200 mg (2 x 100 mg) PO BEDTIME 01/30/24 (Colace) #180 caps loratadine 10 mg tablet 10 mg PO DAILY #90 tabs 01/30/24 ibuprofen 600 mg tablet 600 mg PO Q6H PRN pain #14 tabs 06/08/24 salicylic acid 3 % shampoo (Selsun 1 appl topical 2XW PRN itching 07/14/24 Blue (salicylic acid)) #325 mL atorvastatin 80 mg tablet 80 mg PO QPM #90 tabs 09/08/24 mecobalamin (vitamin B12) 1,000 2,000 mcg (2 x 1,000 mcg) PO DAILY 09/08/24 mcg chewable tablet (B12 Active) #180 tabs pantoprazole 20 mg tablet,delayed 20 mg PO BID #60 tabs 12/10/24 release peg 3350-electrolytes 236 240 ml PO Q10M colonoscopy #4,000 12/21/24 gram-22.74 gram-6.74 gram-5.86 mL gram solution (Golytely) valsartan 80 mg tablet 80 mg PO BID 90 days #180 tabs 01/12/25 albuterol sulfate 1.25 mg/3 mL 1.25 mg (3 mL) inhalation Q4H 1 01/14/25 solution for nebulization month #90 mL albuterol sulfate 90 mcg/actuation 2 puff inhalation Q4-6H PRN 01/14/25 aerosol inhaler shortness of breath or wheezing #8.5 grams tiotropium 2.5 mcg-olodaterol 2.5 2 puff inhalation DAILY #4 grams 01/14/25 mcg/actuation mist for inhalation (Stiolto Respimat) azithromycin 250 mg tablet See Rx Instructions PO .COMPLEX #6 02/11/25 tabs penicillin G benzathine 2.4 2.4 mmu IM QWEEK 2 doses #1 ea 02/23/25 million unit intramuscular suspension Allergies Allergy/AdvReac Type Severity Reaction Status Date / Time lisinopril AdvReac Intermediate Cough, Verified 02/26/25 08:14 headache Review of Systems Review of Systems: Yes all other systems are reviewed and are negative PMFSH Past Medical History Attestation statement: The following information was validated with the patient. Source: old records reviewed and nursing notes reviewed Medical History Tachycardia Breast mass, left Bilateral leg cramps Sore throat Breast mass, right Cyst of right breast Impacted cerumen, left ear Low back strain Morbid obesity Rib fractures Pre-op evaluation Elevated blood pressure reading Infected tooth Chronic constipation Normal physical exam Asthma, mild intermittent, poorly controlled Poor historian Asthma attacks lasting more than 24 hours Left upper quadrant abdominal pain Asthma Surgical History History of surgery on lower extremity History of arthroscopic knee surgery Subareolar mass of left breast Umbilical hernia, incarcerated (12/12/23) History of excision of mass (07/31/23) History of surgery on arm Hx of cholecystectomy Family History Family History Other Substance abuse Social History Social History Household Members: Family Housing: House Are you a primary care program director to a significant other at home: No Do you presently have visiting nurse or other home services: No 75 years or older and lives alone: No Unable to assess alcohol history related to: Unable to respond Alcohol intake: never Patient Tobacco Use Status: Former Tobacco user Tobacco use type: Cigarette Cigarette Packs Per Day: 4 Cigarettes Per Day: 80.0 Years Smoked: 30 e-Cigarette/Vaping Use: Never Used Second Hand Smoke Exposure: No service: No Current occupational status: employed and unemployed Current occupation: works nights Current occupational exposures/hazards: No Gender identity: Male Cognitive needs: No Hearing needs: Yes Vision needs: Yes Physical Exam ED Vital Signs: Vital Signs - 24 hr 02/26/25 08:13 02/26/25 09:26 Temperature 98.7 F 98.7 F Pulse Rate 83 83 Respiratory Rate 18 18 Blood Pressure 145/89 H 145/89 H Pulse Oximetry 95 95 Oxygen Delivery Method Room Air Room Air BMI result Body Mass Index 41.8 hypertensive, afebrile General: Well appearing, in no acute distress. Skin: Warm, dry, intact. No rashes or lesions. Head: Normocephalic, atraumatic. EENT: Hearing is intact b/l. Conjunctiva clear. PERRLA. EOM intact. Moist mucous membranes.? Neck: Supple without LAD Cardiac: Chest wall symmetric. RRR Lungs: Normal respiratory effort without accessory muscle use. CTA bilaterally Abdomen: Soft, non-tender, non-distended. No rebound tenderness or guarding. Positive BS x4. Ext: Upper and lower extremities atraumatic, without tenderness, deformity, swelling or erythema Neuro: AOx3. Normal speech. Ambulating with steady gait. Psych: Appropriate mood and affect. Responds appropriately to questions. Course Course Course Narrative: On chart review, patient received an IM dose of penicillin G on 02/11 and 02/19. infectious disease constulted - requesting 3 weekly IM injections. presents for his last one. he is asymptomatic. PCN injection ordered. patient will be discharged home after medical records secretary. Medications Administered Discontinued Medications Generic Name Dose Route Start Last Admin Trade Name Freq PRN Reason Stop Dose Admin Penicillin G Benzathine 2,400,000 unit 02/26/25 09:12 02/26/25 09:25 Penicillin G Benzathine 2,400,000 Unit/4 Ml Syringe IM 02/26/25 09:13 2,400,000 unit ONCE ONE Administration Medical Decision Making Medical Decision Making MDM Narrative: 54-year-old Stateless-speaking male with pmhx significant for asthma presents to the ED today requesting treatment for syphilis. Vital signs stable. Exam unremarkable. Been for penicillin injection and discharge. Differential Diagnosis Differential Diagnoses: The differential diagnosis associated with the presentation includes as above Admission/Observation not indicated. Social Determinants Patient?s care significantly limited by Social Determinants of Health including: Other Social Determinant of Health Critical Care Time Critical Care Time Critical Care Time: No Discharge Plan Discharge Clinical Impression: Syphilis Patient Disposition: Home, Self-Care Instructions: Penicillin G Benzathine (By injection) (Bicillin L-A) Additional Instructions: You received your last penicillin injection for syphilis today. Please follow up with your primary care provider. I am also requesting that you follow up with Infectious Disease, Dr. Calderón. You have been provided with a referral. Call their office to establish care. They will not call you. Return with any new or worsening symptoms. In the case of an emergency call 911. Prescriptions: No Action valsartan 80 mg tablet 80 mg PO BID 90 Days Qty: 180 0RF albuterol sulfate 90 mcg/actuation HFA aerosol inhaler 2 puff inhalation Q4-6H PRN (Reason: shortness of breath or wheezing) Qty: 8.5 1RF Stiolto Respimat 2.5-2.5 mcg/actuation mist 2 puff inhalation DAILY Qty: 4 6RF albuterol sulfate 1.25 mg/3 mL solution for nebulization 1.25 mg inhalation Q4H 30 Days Qty: 90 6RF penicillin G benzathine 2.4 million unit suspension for reconstitution 2.4 mmu IM QWEEK Qty: 1 0RF Rx Instructions: *he rec'd first dose in [facility] ED ibuprofen 600 mg tablet 600 mg PO Q6H PRN (Reason: pain) Qty: 14 0RF azithromycin 250 mg tablet See Rx Instructions PO .COMPLEX Qty: 6 0RF Rx Instructions: For 250 mg dose pack: take 500 mg today (day 1), then 250 mg for 4 days (days 2-5) docusate sodium [Colace] 100 mg capsule 200 mg PO BEDTIME Qty: 180 2RF loratadine 10 mg tablet 10 mg PO DAILY Qty: 90 0RF (DME) blood pressure kit-extra large Kit See Rx Instructions .Route Qty: 1 0RF Rx Instructions: As directed miscellaneous medical supply Misc See Rx Instructions miscellaneous .COMPLEX Qty: 1 0RF Rx Instructions: air purifier for personal use as directed; ziprasidone HCl 20 mg capsule 20 mg PO BID buspirone 10 mg tablet 10 mg PO BID melatonin 3 mg tablet 3 mg PO BEDTIME Selsun Blue (salicylic acid) 3 % shampoo 1 appl topical 2XW PRN (Reason: itching) Qty: 325 12RF Rx Instructions: leave on for 8 to14 hrs before washing off pantoprazole 20 mg tablet,delayed release (DR/EC) 20 mg PO BID Qty: 60 2RF lorazepam 0.5 mg tablet PO PRN fluoxetine 20 mg capsule 20 mg PO DAILY atorvastatin 80 mg tablet 80 mg PO QPM Qty: 90 2RF mecobalamin (vitamin B12) [B12 Active] 1,000 mcg tablet,chewable 2,000 mcg PO DAILY Qty: 180 3RF peg 3350-electrolytes [Golytely] 236-22.74-6.74 -5.86 gram recon soln 240 ml PO Q10M Qty: 4000 0RF Rx Instructions: as per split prep instructions, until fecal effluent is clear Referrals: [facility] [place] [facility] [Provider Group] - 3 days (Positive syphilis) Interventions: ED Discharge Assessment Last Done: 02/26/25 09:26 Discharge Date/Time: 02/26/25 09:31 Print Language: Stateless
[2025-02-26] MEDS: Penicillin G Benzathine 2,400,000 UNIT/4 ML SYRINGE 2400000 UNIT IM (09:25)
[2025-02-26 09:26] VITALS: BP 145/89; PULSE 83; RESP 18; TEMP 37.1; O2SAT 95
== END 2025-02-26 09:31 | disposition home or self-care (01) ==
PROVIDERS: Emergency Provider Emergency Medicine; PCP Nurse Practitioner Family
DX: A53.9 Syphilis, unspecified (principal); Z79.899 Other long term (current) drug therapy; Z87.891 Personal history of nicotine dependence
CPT/HCPCS: 96372; 99284; J0561

== ENCOUNTER 2025-03-16 07:33 | Outpatient (REF) | payer OTHER, SELFPAY ==
--- NOTE | ~2025-03-16 | FL_ITS ---
EXAMINATION: XR FLUOROSCOPY ESOPHAGRAM CLINICAL INFORMATION: Dysphagia, unspecified. COMPARISON: None TECHNIQUE: Fluoroscopic air contrast upper GI examination was performed utilizing standard techniques with thin and thick barium and effervescent granules. Numerous spot images were obtained. Several fluoroscopic image hold cine sequences were also obtained. FINDINGS: UPPER GI SERIES: Lateral cine images of the oropharynx and hypopharynx demonstrate normal swallow mechanism with normal epiglottic inversion and soft palate elevation. No laryngeal penetration, glottic or subglottic aspiration identified. No nasopharyngeal reflux present. Hypopharyngeal structures appear normal without evidence of mass or diverticulum. There was no significant cricopharyngeal achalasia. Dual and single contrast images of the esophagus demonstrate normal caliber, contour, and mucosal pattern. No evidence of stricture, mass, or ulcerations identified. Esophageal peristalsis was mildly disordered. Feline contraction pattern identified, suggesting chronic reflux. No evidence of hiatus hernia identified. No significant gastroesophageal reflux was seen during the course of the examination and on reflux views. Evaluation of the stomach was somewhat limited due to patient inability to retain the gas from the effervescent granules. This mildly limits evaluation. Mild prominence of the gastric rugal folds noted, likely reflective of suboptimal distention. Dual contrast and single contrast images of the stomach demonstrated normal contour and mucosal pattern without evidence of mass, ulceration, or other abnormality. Contrast freely passed into the gastric antrum and duodenal bulb without delay. Single and air-contrast images of the duodenal bulb demonstrate no abnormality. The duodenal sweep has a normal appearance, course, and mucosal fold appearance. FLUOROSCOPY TIME: 3 minutes, 7 seconds Number of Spot Images:8 Number of cines obtained: 10 DOSE AREA PRODUCT: 5852 uGy-m2 (microgray-meter squared) FL/FL barium swallow with air IMPRESSION: 1. Mildly disordered esophageal peristalsis. Feline contraction pattern identified suggesting chronic gastroesophageal reflux. 2. No definite hiatus hernia. 3. No definite gastroesophageal reflux identified during the course of the examination. 4. Somewhat limited evaluation of the stomach due to patient inability to tolerate gas from the effervescent granules. Prominence of the gastric rugal folds was noted, most likely a manifestation of underdistention. Stomach otherwise imaged normally. Electronically signed by: Rajinder Leroy MD 03/16/2025 12:56 PM EDT
== END 2025-03-16 07:34 | disposition home or self-care (01) ==
LOC: HO.XRAY 07:33
PROVIDERS: PCP Nurse Practitioner Family; Visit Provider Internal Medicine
DX: R13.10 Dysphagia, unspecified (principal)
CPT/HCPCS: 74221

== ENCOUNTER → 2025-03-16 07:36 | Outpatient (BNV) | payer OTHER, SELFPAY | PROVIDERS: PCP Nurse Practitioner Family; Visit Provider Radiology Diagnostic Radiology | DX: R13.10 Dysphagia, unspecified (principal) | CPT/HCPCS: 74221 ==

== ENCOUNTER 2025-03-21 14:11 | Emergency (ER) | payer OTHER, SELFPAY ==
[2025-03-21 14:18] VITALS: BP 139/89; PULSE 75; RESP 16; TEMP 36.6; O2SAT 94; BMI 44.3
--- NOTE | 2025-03-21 14:20 | ED.GENADULT ---
HPI - General Adult General Chief complaint: Upper Respiratory Symptoms Stated complaint: high bp Time Seen by Provider: 03/21/25 15:09 Source: patient Mode of arrival: ambulatory Limitations: no limitations History of Present Illness ED Provider: Jackie Carter APRN HPI narrative: 54 yo male with history of HTN, HLD, COPD/asthma here with complaints here with coughing, when coughing has headache and feels blood pressure is elevated, sore throat x 2 days. Taking tessalon Had barium swallow a week ago. No shortness of breath, chest pain, abdominal pain, difficulty swallowing, fevers, chills, vomiting, diarrhea, vision changes, dizziness, neck pain/stiffness. Related Data Home Medications ?Medication ?Instructions ?Recorded ?Confirmed fluoxetine 20 mg capsule 20 mg PO DAILY 03/05/24 02/09/25 lorazepam 0.5 mg tablet mg PO PRN 03/05/24 02/09/25 buspirone 10 mg tablet 10 mg PO BID 04/02/24 02/09/25 melatonin 3 mg tablet 3 mg PO BEDTIME 04/02/24 02/09/25 ziprasidone HCl 20 mg capsule 20 mg PO BID 04/02/24 02/09/25 Previous Rx's ?Medication ?Instructions ?Recorded blood pressure kit-extra large #1 ea 11/20/22 miscellaneous medical supply See Rx Instructions miscellaneous 11/20/22 .COMPLEX #1 ea docusate sodium 100 mg capsule 200 mg (2 x 100 mg) PO BEDTIME 01/30/24 (Colace) #180 caps loratadine 10 mg tablet 10 mg PO DAILY #90 tabs 01/30/24 ibuprofen 600 mg tablet 600 mg PO Q6H PRN pain #14 tabs 06/08/24 salicylic acid 3 % shampoo (Selsun 1 appl topical 2XW PRN itching 07/14/24 Blue (salicylic acid)) #325 mL atorvastatin 80 mg tablet 80 mg PO QPM #90 tabs 09/08/24 mecobalamin (vitamin B12) 1,000 2,000 mcg (2 x 1,000 mcg) PO DAILY 09/08/24 mcg chewable tablet (B12 Active) #180 tabs pantoprazole 20 mg tablet,delayed 20 mg PO BID #60 tabs 12/10/24 release peg 3350-electrolytes 236 240 ml PO Q10M colonoscopy #4,000 12/21/24 gram-22.74 gram-6.74 gram-5.86 mL gram solution (Golytely) valsartan 80 mg tablet 80 mg PO BID 90 days #180 tabs 01/12/25 albuterol sulfate 1.25 mg/3 mL 1.25 mg (3 mL) inhalation Q4H 1 01/14/25 solution for nebulization month #90 mL albuterol sulfate 90 mcg/actuation 2 puff inhalation Q4-6H PRN 01/14/25 aerosol inhaler shortness of breath or wheezing #8.5 grams tiotropium 2.5 mcg-olodaterol 2.5 2 puff inhalation DAILY #4 grams 01/14/25 mcg/actuation mist for inhalation (Stiolto Respimat) azithromycin 250 mg tablet See Rx Instructions PO .COMPLEX #6 02/11/25 tabs penicillin G benzathine 2.4 2.4 mmu IM QWEEK 2 doses #1 ea 02/23/25 million unit intramuscular suspension prednisone 20 mg tablet 40 mg (2 x 20 mg) PO DAILY #10 tabs 03/21/25 Allergies Allergy/AdvReac Type Severity Reaction Status Date / Time lisinopril AdvReac Intermediate Cough, Verified 03/21/25 14:20 headache Review of Systems Review of Systems: Yes all other systems are reviewed and are negative Constitutional: Constitutional: Reports no additional constitutional complaints, Denies body ache(s), Denies chills, Denies fever(s), Denies headache(s) and Denies weakness Eyes: Eyes: Reports no additional eye complaints and Denies change in vision ENT: Reports system reviewed and no additional complaints, except as documented, Denies dizziness, Denies headache(s), Denies nasal congestion, Denies nasal discharge, Denies neck pain and Reports sore throat Cardiovascular: Cardiovascular: Reports no additional cardiovascular complaints, Denies chest pain, Denies leg edema and Denies dyspnea Respiratory: Respiratory: Reports no additional respiratory complaints, Reports cough and Denies dyspnea Gastrointestinal: Gastrointestinal: Reports no additional gastrointestinal complaints, Denies abdominal pain, Denies diarrhea, Denies nausea and Denies vomiting Genitourinary: Genitourinary: Denies urinary incontinence Musculoskeletal: Musculoskeletal: Reports no additional musculoskeletal complaints, Denies back pain, Denies arthralgias, Denies joint swelling, Denies neck pain, Denies numbness and Denies tingling Integumentary/Breasts: Skin/Breast: Reports system reviewed and no additional complaints, except as docu and Denies rash Neurologic: Reports system reviewed and no additional complaints, except as documented, Denies Abnormal speech present, Denies dizziness, Denies headache(s), Denies numbness, Denies tingling and Denies weakness PMF Past Medical History Attestation statement: The following information was validated with the patient. Source: old records reviewed and nursing notes reviewed Medical History Tachycardia Breast mass, left Bilateral leg cramps Sore throat Breast mass, right Cyst of right breast Impacted cerumen, left ear Low back strain Morbid obesity Rib fractures Pre-op evaluation Elevated blood pressure reading Infected tooth Chronic constipation Normal physical exam Asthma, mild intermittent, poorly controlled Poor historian Asthma attacks lasting more than 24 hours Left upper quadrant abdominal pain Asthma Surgical History History of surgery on lower extremity History of arthroscopic knee surgery Subareolar mass of left breast Umbilical hernia, incarcerated (12/12/23) History of excision of mass (07/31/23) History of surgery on arm Hx of cholecystectomy Family History Family History Other Substance abuse Social History Social History Household Members: Family Housing: House Are you a primary rn transitional care to a significant other at home: No Do you presently have visiting nurse or other home services: No Unable to assess alcohol history related to: Unable to respond Alcohol intake: never Patient Tobacco Use Status: Former Tobacco user Tobacco use type: Cigarette Cigarette Packs Per Day: 4 Cigarettes Per Day: 80.0 Years Smoked: 30 e-Cigarette/Vaping Use: Never Used Second Hand Smoke Exposure: No Advance Directives: No Advance Directives Information Provided: Yes service: No Current occupational status: employed and unemployed Current occupation: works nights Current occupational exposures/hazards: No Gender identity: Male Cognitive needs: No Hearing needs: Yes Vision needs: Yes Physical Exam ED Vital Signs: Vital Signs - 24 hr 03/21/25 14:18 Temperature 97.9 F Pulse Rate 75 Respiratory Rate 16 Blood Pressure 139/89 Pulse Oximetry 94 Oxygen Delivery Method Room Air BMI result Body Mass Index 44.3 Const General: cooperative, healthy appearing, comfortable and no acute distress Orientation/consciousness: patient oriented x3 Limitations: no limitations HENMT Head: Yes normal to inspection Ears: hearing grossly normal bilaterally and TM's normal bilaterally General nose exam: Normal external nose present Face and sinus: Yes normal facial exam Mouth: Normal oral and palatal mucosa present Throat: Yes posterior oropharynx normal, Yes tonsils normal and Yes uvula midline Eyes General: appearance normal, both eyes and all related structures Pupils: Equal, round and reactive pupils present Neck Neck: Yes normal visual inspection, Yes full ROM, Yes no lymphadenopathy and Yes no meningeal signs Chest Chest palpation & inspection: normal inspection of the chest Resp Effort & Inspection: normal respiratory effort Auscultation: clear to auscultation bilaterally Cardio Rate: regular rate Rhythm: regular rhythm Peripheral pulses: Peripheral pulses 2+ throughout GI Inspection: Yes normal to inspection Palpation (GI): Soft to palpation and nontender Auscultation: normal bowel sounds Back/Spine/Pelvis Thoracic/Lumbar Spine: thoracic and lumbar spine normal to inspection Skin General skin exam: no rashes or lesions noted Neuro General: patient oriented x3, no meningeal signs, no focal motor deficits and normal sensation to monofilament Cranial nerves: Yes Equal, round and reactive pupils present Cognition (Neuro): normal cognition Speech: No Abnormal speech present Gait exam (Neuro): Normal gait present Motor exam (neuro): 5/5 motor strength present throughout Extrem General: Yes normal to inspection, Yes no pedal edema and Yes no calf tenderness Course Course Course Narrative: Allison Carter APRN This is a rapid medical exam. Deferred additional HPI, ROS, PE to primary provider. 54 yo male with history of HTN, HLD, COPD/asthma here with complaints here with coughing, when coughing has headache and feels blood pressure is elevated, sore throat x 2 days. Taking tessalon Had endoscopy a week ago. Will obtain viral testing. VSS Reevaluation(s) Reevaluation #1: Viral testing is negative. Likely irritation secondary to recent endoscopy or recent asthma exacerbation. Could consider PNA but less likely as , patient non toxic, no hypoxia or tachypnea with no reports of fever or even productive cough. However will treat with low dose prednisone and patient may continue tessalon. Reviewed worrisome signs.symptoms with patient and when to seek additional care. Comfortable with discharge home. Medical Decision Making Medical Decision Making [facility] Narrative: 54 yo male with history of HTN, HLD, COPD/asthma here with complaints here with coughing, when coughing has headache and feels blood pressure is elevated, sore throat x 2 days. Taking tessalon Had barium swallow a week ago. No shortness of breath, chest pain, abdominal pain, difficulty swallowing, fevers, chills, vomiting, diarrhea, vision changes, dizziness, neck pain/stiffness. LS CTA VSS including a normal BP Exam is benign Will send viral testing Differential Diagnosis Differential Diagnoses: The differential diagnosis associated with the presentation includes viral syndrome, asthma exacerbation, pharyngitis, irritation, GERD Low suspicion for LEAD [employer]IPPER, RPA, epiglottitis, aspiration PNA based on physical exam Admission/Observation Consideration of admission/observation: Escalation of care including admission/observation considered Lab Data [facility] Lab Attestation statement: I reviewed the patient's lab results. Labs: Lab Results 03/21/25 Range/Units 14:35 Influenza Type A (PCR) NEGATIVE (Negative) Influenza Type B (PCR) NEGATIVE (Negative) RSV RNA Qual (PCR) NEGATIVE (Negative) SARS-CoV-2 RNA (RT-PCR) NEGATIVE (Negative) Tests considered The following testing was considered but not selected: no hypoxia or tachypnea to suggest need for CXR Discharge Plan Discharge Clinical Impression: Cough Patient Disposition: Home, Self-Care Instructions: Acute Cough (ED) Additional Instructions: Testing for covid, flu and rsv are negative You may continue the tessalon at home and your asthma medications. Prescriptions: New prednisone 20 mg tablet 40 mg PO DAILY Qty: 10 0RF No Action valsartan 80 mg tablet 80 mg PO BID 90 Days Qty: 180 0RF albuterol sulfate 90 mcg/actuation HFA aerosol inhaler 2 puff inhalation Q4-6H PRN (Reason: shortness of breath or wheezing) Qty: 8.5 1RF Stiolto Respimat 2.5-2.5 mcg/actuation mist 2 puff inhalation DAILY Qty: 4 6RF albuterol sulfate 1.25 mg/3 mL solution for nebulization 1.25 mg inhalation Q4H 30 Days Qty: 90 6RF penicillin G benzathine 2.4 million unit suspension for reconstitution 2.4 mmu IM QWEEK Qty: 1 0RF Rx Instructions: *[place] [facility] [place]rofen 600 mg tablet 600 mg PO Q6H PRN (Reason: pain) Qty: 14 0RF azithromycin 250 mg tablet See Rx Instructions PO .COMPLEX Qty: 6 0RF Rx Instructions: For 250 mg dose pack: take 500 mg today (day 1), then 250 mg for 4 days (days 2-5) docusate sodium [Colace] 100 mg capsule 200 mg PO BEDTIME Qty: 180 2RF loratadine 10 mg tablet 10 mg PO DAILY Qty: 90 0RF (DME) blood pressure kit-extra large Kit See Rx Instructions .Route Qty: 1 0RF Rx Instructions: As directed miscellaneous medical supply [facility] [place] See Rx Instructions miscellaneous .COMPLEX Qty: 1 0RF Rx Instructions: air purifier for personal use as directed; ziprasidone HCl 20 mg capsule 20 mg PO BID buspirone 10 mg tablet 10 mg PO BID melatonin 3 mg tablet 3 mg PO BEDTIME Selsun Blue (salicylic acid) 3 % shampoo 1 appl topical 2XW PRN (Reason: itching) Qty: 325 12RF Rx Instructions: leave on for 8 to14 hrs before washing off pantoprazole 20 mg tablet,delayed release (DR/EC) 20 mg PO BID Qty: 60 2RF lorazepam 0.5 mg tablet PO PRN fluoxetine 20 mg capsule 20 mg PO DAILY atorvastatin 80 mg tablet 80 mg PO QPM Qty: 90 2RF mecobalamin (vitamin B12) [B12 Active] 1,000 mcg tablet,chewable 2,000 mcg PO DAILY Qty: 180 3RF peg 3350-electrolytes [Golytely] 236-22.74-6.74 -5.86 gram recon soln 240 ml PO Q10M Qty: 4000 0RF Rx Instructions: as per split prep instructions, until fecal effluent is clear Referrals: Shawn Tee MD [Primary Care Provider] - 1 week Print Language: Icelandic
[2025-03-21 15:21] LABS: Influenza A PCR NEGATIVE (Negative); Influenza B PCR NEGATIVE (Negative); Resp Syncy Virus RNA Qual PCR NEGATIVE (Negative); SARS COV2 PCR INHOUSE NEGATIVE (Negative)
[2025-03-21 15:39] VITALS: BP 139/89; PULSE 75; RESP 16; TEMP 36.6; O2SAT 94
== END 2025-03-21 15:41 | disposition home or self-care (01) ==
PROVIDERS: Nurse Practitioner Family; Emergency Provider Emergency Medicine; PCP Family Medicine
DX: R05.9 Cough, unspecified (principal); R51.9 Headache, unspecified; J02.9 Acute pharyngitis, unspecified; Z03.818 Encounter for observation for suspected exposure to other biological agents ruled out; I10 Essential (primary) hypertension; E78.5 Hyperlipidemia, unspecified; J45.909 Unspecified asthma, uncomplicated; Z79.02 Long term (current) use of antithrombotics/antiplatelets; Z79.899 Other long term (current) drug therapy
CPT/HCPCS: 0241U; 99282; 99283

== ENCOUNTER 2025-04-21 11:55 | Emergency (ER) | payer OTHER, SELFPAY ==
--- NOTE | ~2025-04-21 | XR_ITS ---
EXAMINATION: XR CHEST 2 VIEWS HISTORY: productive cough COMPARISON: Comparison is made with the prior examination dated 02/11/2025. FINDINGS: PA and lateral views of the chest are submitted. The lungs are expanded and clear. There is no pleural effusion, pneumothorax, or pulmonary vascular congestion. The heart is normal in size. There are healing bilateral rib fractures. XR/XR chest 2V IMPRESSION: No acute cardiopulmonary abnormality. Electronically signed by: Amauri España MD 04/21/2025 01:05 PM EDT
[2025-04-21 12:10] VITALS: BP 136/84; PULSE 79; RESP 22; TEMP 36.5; O2SAT 98; BMI 40.4
--- NOTE | 2025-04-21 12:13 | ED_ITS ---
HPI - General Adult General Chief complaint: Upper Respiratory Symptoms Stated complaint: headache cough Time Seen by Provider: 04/21/25 13:13 Source: patient Mode of arrival: ambulatory Limitations: language barrier (conference interpreter used) History of Present Illness ED Provider: HPI narrative: 54-year-old male presenting with feeling like he is short of breath, headache, viral-like symptoms for the past 2 days states worse at night. No chest pain no fevers or chills, no diarrhea or dysuria Related Data Home Medications ?Medication ?Instructions ?Recorded ?Confirmed fluoxetine 20 mg capsule 20 mg PO DAILY 03/05/2403/31 lorazepam 0.5 mg tablet mg PO PRN 03/05/24 02/09/25 buspirone 10 mg tablet 10 mg PO BID 04/02/24 melatonin 3 mg tablet 3 mg PO BEDTIME 04/02/2403/31 ziprasidone HCl 20 mg capsule 20 mg PO BID 04/02/24 Previous Rx's ?Medication ?Instructions ?Recorded blood pressure kit-extra large #1 ea 11/20/22 miscellaneous medical supply See Rx Instructions misce llaneous 11/20/22 .COMPLEX #1 ea docusate sodium 100 mg capsule 200 mg (2 x 100 mg) PO BEDTIME 01/30/24 (Colace) #180 caps loratadine 10 mg tablet 10 mg PO DAILY #90 tabs 01/06 02/27 ibuprofen 600 mg tablet 600 mg PO Q6H PRN pain #14 t abs 06/08/24 salicylic acid 3 % shampoo (Selsun 1 appl topical 2XW PRN itching 07/14/24 Blue (salicylic acid)) #325 mL atorvastatin 80 mg tablet 80 mg PO QPM #90 tabs mecobalamin (vitamin B12) 1,000 2,000 mcg (2 x 1,000 m cg) PO DAILY 09/08/24 mcg chewable tablet (B12 Active) #180 tabs pantoprazole 20 mg tablet,delayed 20 mg PO BID #60 tab s 12/10/24 release peg 3350-electrolytes 236 240 ml PO Q10M colonoscopy # 4,000 12/21/24 gram-22.74 gram-6.74 gram-5.86 mL gram solution (Golytely) albuterol sulfate 1.25 mg/3 mL 1.25 mg (3 mL) inhalati on Q4H 1 01/14/25 solution for nebulization month #90 mL albuterol sulfate 90 mcg/actuation 2 puff inhalation Q 4-6H PRN 01/14/25 aerosol inhaler shortness of breath or wheez ing #8.5 grams tiotropium 2.5 mcg-olodaterol 2.5 2 puff inhalation DA MADELEINE #4 grams 01/14/25 mcg/actuation mist for inhalation (Stiolto Respimat) azithromycin 250 mg tablet See Rx Instructions PO .COM PLEX #6 02/11/25 tabs penicillin G benzathine 2.4 2.4 mmu IM QWEEK 2 doses # 1 ea 02/23/25 million unit intramuscular suspension prednisone 20 mg tablet 40 mg (2 x 20 mg) PO DAILY # 10 tabs 03/21/25 valsartan 80 mg tablet 80 mg PO BID 90 days #180 ta bs 04/12/25 benzonatate 200 mg capsule 200 mg PO TID PRN cough #14 caps 04/21/25 prednisone 20 mg tablet 40 mg (2 x 20 mg) PO DAILY 5 days 04/21/25 #10 tabs Allergies Allergy/AdvReac Type Severity Reaction Status Date / Time lisinopril AdvReac Intermediate Cough, Verified 04/21/25 12:16 headache Review of Systems 2 Constitutional: Constitutional: Reports as per [facility] Past Medical History Medical History Tachycardia Breast mass, left Bilateral leg cramps Sore throat Breast mass, right Cyst of right breast Impacted cerumen, left ear Low back strain Morbid obesity Rib fractures Pre-op evaluation Elevated blood pressure reading Infected tooth Chronic constipation Normal physical exam Asthma, mild intermittent, poorly controlled Poor historian Asthma attacks lasting more than 24 hours Left upper quadrant abdominal pain Asthma Surgical History History of surgery on lower extremity History of arthroscopic knee surgery Subareolar mass of left breast Umbilical hernia, incarcerated (12/12/23) History of excision of mass (07/31/23) History of surgery on arm Hx of cholecystectomy Family History Family History Other Substance abuse Social History Social History Household Members: Family Housing: House Are you a primary critical care cns to a significant other at home: No Do you presently have visiting nurse or other home services: No Unable to assess alcohol history related to: Unable to respond Alcohol intake: never Patient Tobacco Use Status: Former Tobacco user Tobacco use type: Cigarette Cigarette Packs Per Day: 4 Cigarettes Per Day: 80.0 Years Smoked: 30 e-Cigarette/Vaping Use: Never Used Second Hand Smoke Exposure: No Advance Directives: No Advance Directives Information Provided: Yes Do you have a plan to hurt others: No Plan service: No Current occupational status: employed and unemployed Current occupation: works nights Current occupational exposures/hazards: No Gender identity: Male Cognitive needs: No Hearing needs: Yes Vision needs: Yes Physical Exam ED Vital Signs: Vital Signs - 24 hr 04/21/25 12:10 Temperature 97.7 F Pulse Rate 79 Respiratory Rate 22 H Blood Pressure 136/84 Pulse Oximetry 98 Oxygen Delivery Method Room Air BMI result Body Mass Index 40.4 Const Other: * Gen: ?Overall well-appearing patient * HEENT: No erythema, uvula midline * Neck: Supple, no LAD * CV: RRR, no obvious murmurs appreciated * Resp: ?No wheezing rales rhonchi no stridor moving air well * Abd: ?Bowel sounds are present, no tenderness no rebound no rigidity * MSK: FROM, strength 5/5 all extremities * Skin: Warm, dry, intact, * Neuro: ?Alert and oriented x3, moving upper and lower extremities symmetrically, no obvious facial asymmetry noted Course Course Course Narrative: 04/21/25 1213 DARYL Bhatia This is a Rapid Medical Examination (RME) performed by Doretha Solis PA-C in triage. Full HPI, ROS, assessment and treatment plan per primary provider in the Main ED. Hx: 54 yo M hx of HTN, HLD, COPD/asthma here for eval of cough productive of white sputum, headache and nausea without vomiting x days. No known sick contacts. No lower extremity swelling. Using inhaler at home without improvement. Using Tylenol/Motrin at home without improvement. Plan: Labs, viral swabs, chest x-ray Medical Decision Making Medical Decision Making [facility] Narrative: Patient presenting with viral-like symptoms, reports cough difficulty breathing, no wheezing or stridor no rales on exam, chest x-ray and physical exam not consistent with pneumonia, CHF, there was no evidence for ENT infections, see my differential as below, we will treat symptomatically and discharge Differential Diagnosis Differential Diagnoses: The differential diagnosis associated with the presentation includes Pneumonia, UTI, abdominal source of infection, ENT infections, dehydration Admission/Observation Consideration of admission/observation: Escalation of care including admission/observation considered Lab Data [facility] Lab Attestation statement: I reviewed the patient's lab results. 04/21/25 12:26 04/21/25 12:26 Labs: Lab Results 04/21/25 Range/Units 12:26 WBC 9.5 (4.8-10.8) X10*3/uL RBC 5.22 (4.60-5.80) X10*6/uL Hgb 13.5 L (14.0-18.0) g/dl Hct 41.2 L (42.0-52.0) % MCV 78.9 L (80.0-98.0) fL MCH 25.9 L (27.0-33.0) pg MCHC 32.8 (31.0-36.0) g/dl RDW 15.2 (11.0-16.0) % Plt Count 284 (160-400) X10*3/uL MPV 9.4 (9.4-12.4) fL Immature Gran % (Auto) 1.0 H (0.0-0.4) % Neut % (Auto) 51.8 (45-73) % Lymph % (Auto) 37.1 (20-40) % Cooke % (Auto) 7.4 (2-11) % Eos % (Auto) 2.2 (0-4) % Baso % (Auto) 0.5 (0-2) % Lymph # (Auto) 3.5 (1.2-4.9) X10*3/uL [place]oke # (Auto) 0.7 (0.1-1.2) X10*3/uL Eos # (Auto) 0.2 (0.0-0.4) X10*3/uL Baso # (Auto) 0.1 (0.0-0.2) X10*3/uL Abs Immat Gran (auto) 0.09 H (0.00-0.03) X10*3/uL Absolute Neuts (auto) 4.9 (2.0-8.3) x10*3/uL Absolute Nucleated RBC 0.000 (0.0-0.012) X10*3/uL Nucleated RBC % (auto) 0.0 (0.0-0.2) /100WBC Sodium 141 (135-145) mmol/L Potassium 3.6 (3.3-5.1) mmol/L Chloride 107 (96-108) mmol/L Carbon Dioxide 27 (22-29) mmol/L Anion Gap 11 L (12-20) BUN 16 (9-16) mg/dL Creatinine 0.81 (0.5-1.4) mg/dL Estim Creat Clear Calc 133.0 Estimated GFR > 60 Random Glucose 102 (60-115) mg/dL Calcium 9.3 (8.4-10.2) mg/dL Magnesium 1.6 (1.6-2.6) mg/dL Total Bilirubin 0.3 (0.0-1.0) mg/dL AST 20 (5-37) U/L ALT 23 (0-40) U/L Alkaline Phosphatase 65 (39-117) U/L B-Natriuretic Peptide 86 (<100) pg/mL Total Protein 6.9 (6.5-8.0) g/dL Albumin 4.1 (3.5-5.0) g/dL Influenza Type A (PCR) NEGATIVE (Negative) Influenza Type B (PCR) NEGATIVE (Negative) RSV RNA Qual (PCR) NEGATIVE (Negative) SARS-CoV-2 RNA (RT-PCR) NEGATIVE (Negative) Discharge Plan Discharge Clinical Impression: Dry cough, Dyspnea Patient Disposition: Home, Self-Care Additional Instructions: Continue with steroids starting tomorrow, they will help with the or bronchitis and cough, use Tessalon Perles, your chest x-ray blood work viral swab unremarkable, follow up with the PCP worsening issues or concerns come back to the ER Prescriptions: New benzonatate 200 mg capsule 200 mg PO TID PRN (Reason: cough) Qty: 14 0RF prednisone 20 mg tablet 40 mg PO DAILY 5 Days Qty: 10 0RF No Action albuterol sulfate 90 mcg/actuation HFA aerosol inhaler 2 puff inhalation Q4-6H PRN (Reason: shortness of breath or wheezing) Qty: 8.5 1RF Stiolto Respimat 2.5-2.5 mcg/actuation mist 2 puff inhalation DAILY Qty: 4 6RF albuterol sulfate 1.25 mg/3 mL solution for nebulization 1.25 mg inhalation Q4H 30 Days Qty: 90 6RF penicillin G benzathine 2.4 million unit suspension for reconstitution 2.4 mmu IM QWEEK Qty: 1 0RF Rx Instructions: *he rec'd first dose in [facility] [place] ED valsartan 80 mg tablet 80 mg PO BID 90 Days Qty: 180 0RF ibuprofen 600 mg tablet 600 mg PO Q6H PRN (Reason: pain) Qty: 14 0RF azithromycin 250 mg tablet See Rx Instructions PO .COMPLEX Qty: 6 0RF Rx Instructions: For 250 mg dose pack: take 500 mg today (day 1), then 250 mg for 4 days (days 2-5) prednisone 20 mg tablet 40 mg PO DAILY Qty: 10 0RF docusate sodium [Colace] 100 mg capsule 200 mg PO BEDTIME Qty: 180 2RF loratadine 10 mg tablet 10 mg PO DAILY Qty: 90 0RF (DME) blood pressure kit-extra large Kit See Rx Instructions .Route Qty: 1 0RF Rx Instructions: As directed miscellaneous medical supply [facility] See Rx Instructions miscellaneous .COMPLEX Qty: 1 0RF Rx Instructions: air purifier for personal use as directed; ziprasidone HCl 20 mg capsule 20 mg PO BID buspirone 10 mg tablet 10 mg PO BID melatonin 3 mg tablet 3 mg PO BEDTIME Selsun Blue (salicylic acid) 3 % shampoo 1 appl topical 2XW PRN (Reason: itching) Qty: 325 12RF Rx Instructions: leave on for 8 to14 hrs before washing off pantoprazole 20 mg tablet,delayed release (DR/EC) 20 mg PO BID Qty: 60 2RF lorazepam 0.5 mg tablet PO PRN fluoxetine 20 mg capsule 20 mg PO DAILY atorvastatin 80 mg tablet 80 mg PO QPM Qty: 90 2RF mecobalamin (vitamin B12) [B12 Active] 1,000 mcg tablet,chewable 2,000 mcg PO DAILY Qty: 180 3RF peg 3350-electrolytes [Golytely] 236-22.74-6.74 -5.86 gram recon soln 240 ml PO Q10M Qty: 4000 0RF Rx Instructions: as per split prep instructions, until fecal effluent is clear Print Language: Afghan
[2025-04-21 12:30] LABS: MANUAL DIFF FLAG NO
[2025-04-21 12:32] LABS: Hematocrit 41.2 % (42.0-52.0); Hemoglobin 13.5 g/dl (14.0-18.0); Imm Gran Abs Auto 0.09 X10*3/uL (0.00-0.03); Imm Gran Pct Auto 1.0 % (0.0-0.4); Lymphocytes Absolute Auto 3.5 X10*3/uL (1.2-4.9); Mean Corpuscular HGB Conc 32.8 g/dl (31.0-36.0); Mean Corpuscular Hemoglobin 25.9 pg (27.0-33.0); Mean Corpuscular Volume 78.9 fL (80.0-98.0); NRBC Abs Auto 0.000 X10*3/uL (0.0-0.012); NRBC Pct Auto 0.0 /100WBC (0.0-0.2); Platelet Count 284 X10*3/uL (160-400); Red Blood Count 5.22 X10*6/uL (4.60-5.80); White Blood Count 9.5 X10*3/uL (4.8-10.8)
[2025-04-21 12:47] LABS: Alanine Aminotransferase 23 U/L (0-40); Albumin Level 4.1 g/dL (3.5-5.0); Alkaline Phosphatase 65 U/L (39-117); Anion Gap 11 (12-20); Aspartate Amino Transferase 20 U/L (5-37); Blood Urea Nitrogen 16 mg/dL (9-16); Calcium 9.3 mg/dL (8.4-10.2); Carbon Dioxide 27 mmol/L (22-29); Chloride 107 mmol/L (96-108); Creatinine Clr Calc Pharmacy 133.0; Estimated Glomerular Filt Rate > 60; Magnesium 1.6 mg/dL (1.6-2.6); Potassium 3.6 mmol/L (3.3-5.1); Sodium 141 mmol/L (135-145); Total Protein 6.9 g/dL (6.5-8.0)
[2025-04-21 12:53] LABS: B Type Natriuretic Peptide 86 pg/mL (<100)
[2025-04-21 13:09] LABS: Resp Syncy Virus RNA Qual PCR NEGATIVE (Negative); SARS COV2 PCR INHOUSE NEGATIVE (Negative)
[2025-04-21 14:00] VITALS: BP 149/93; PULSE 71; RESP 16; TEMP 36.6; O2SAT 97
[2025-04-21 14:10] VITALS: O2SAT 97
[2025-04-21 14:12] VITALS: BP 149/93; PULSE 71; RESP 16; TEMP 36.6; O2SAT 97
== END 2025-04-21 14:14 | disposition home or self-care (01) ==
PROVIDERS: Physician Assistant Medical; Emergency Provider Emergency Medicine; PCP Nurse Practitioner Family
DX: R51.9 Headache, unspecified (principal); R05.9 Cough, unspecified; R06.02 Shortness of breath; Z03.818 Encounter for observation for suspected exposure to other biological agents ruled out; Z79.899 Other long term (current) drug therapy
CPT/HCPCS: 36415; 71046; 80053; 83735; 83880; 85025; 87637; 96372; 99284; J1885; J8540

== ENCOUNTER → 2025-04-21 12:17 | Outpatient (BNV) | payer OTHER, SELFPAY | PROVIDERS: Emergency Provider Emergency Medicine; PCP Nurse Practitioner Family; Visit Provider Radiology Diagnostic Radiology | DX: R05.1 Acute cough (principal) | CPT/HCPCS: 71046 ==

== ENCOUNTER 2025-05-19 07:43 | Outpatient (AMB) | payer OTHER, SELFPAY ==
--- NOTE | 2025-05-19 07:49 | MHC.OFFVIS ---
Vital Signs 05/19/25 08:08 Height 5 ft 8 in Weight 265 lb BMI 40.3 BP 140/90 H Blood Pressure Location Rt brachial Position Sitting Pulse 96 Pulse Source Pulse Oximeter Pulse Oximetry (%) 93 Oxygen Delivery Method Room Air Intake Visit Reasons: Right knee pain and giving way Intake Note: Socrates is a 54 year old male who presents with complaints of progressively worsening right knee pain and giving way. The patient did undergo left knee arthroscopic surgery on 05/22/2024. He denies any pain in his left knee. He states that he injured his right knee several years ago. He twisted his knee and had acute onset of pain. Since that time his symptoms have gotten worse in spite of continued non operative treatments. He has failed the last 6 weeks of conservative treatment which has consisted of physical therapy exercises, topical creams, Tylenol and anti-inflammatory medicines. He states that his right knee will give out several times per day. He has had cortisone injections in the past which gave him no relief. Socrates is a 54 year old male who presents today as a follow up for his Right knee pain. At last visit we discussed right knee arthroscopic surgery,10/05/24. At today's visit he states he is still having severe pain. Pt is interested in surgery. 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 Stemming Machine Operator Language: Marketing Operations Analyst Name: Raina([id number]) Allergies lisinopril Adverse Reaction (Intermediate, Verified 05/19/25 07:50) Cough, headache Medication List - Last Reconciled 05/19/25 by Wil Luevano MD albuterol sulfate 90 mcg/actuation 2 puffs inhalation Q4-6H PRN albuterol sulfate 1.25 mg (3 mL) inhalation Q4H 1 month atorvastatin 80 mg PO QPM blood pressure kit-extra large As directed buspirone 10 mg PO BID docusate sodium (Colace) 200 mg (2 x 100 mg) PO BEDTIME fluoxetine 20 mg PO DAILY ibuprofen 600 mg PO Q6H PRN loratadine 10 mg PO DAILY lorazepam mg PO PRN mecobalamin (vitamin B12) (B12 Active) 2,000 mcg (2 x 1,000 mcg) PO DAILY melatonin 3 mg PO BEDTIME miscellaneous medical supply air purifier for personal use as directed; pantoprazole 20 mg PO BID peg 3350-electrolytes 236-22.74-6.74 -5.86 gram (Golytely) 240 mL PO Q10M salicylic acid 3% (Selsun Blue (salicylic acid)) 1 appl topical 2XW PRN tiotropium-olodaterol 2.5-2.5 mcg/actuation (Stiolto Respimat) 2 puffs inhalation DAILY valsartan 80 mg PO BID 90 days ziprasidone HCl 20 mg PO BID [facility] Medical History Tachycardia Breast mass, left Bilateral leg cramps Sore throat Breast mass, right Cyst of right breast Impacted cerumen, left ear Low back strain Morbid obesity Rib fractures Pre-op evaluation Elevated blood pressure reading Infected tooth Chronic constipation Normal physical exam Asthma, mild intermittent, poorly controlled Poor historian Asthma attacks lasting more than 24 hours Left upper quadrant abdominal pain Asthma Surgical History History of surgery on lower extremity History of arthroscopic knee surgery Subareolar mass of left breast Umbilical hernia, incarcerated (12/12/23) History of excision of mass (07/31/23) History of surgery on arm Hx of cholecystectomy Family History Other Substance abuse Social History Household Members: Family Housing: House Are you a primary acute care clinical nurse specialist to a significant other at home: No Do you presently have visiting nurse or other home services: No Unable to assess alcohol history related to: Unable to respond Alcohol intake: never Patient Tobacco Use Status: Former Tobacco user Tobacco use type: Cigarette Cigarette Packs Per Day: 4 Cigarettes Per Day: 80.0 Years Smoked: 30 e-Cigarette/Vaping Use: Never Used Second Hand Smoke Exposure: No service: No Current occupational status: employed and unemployed Current occupation: works nights Current occupational exposures/hazards: No Gender identity: Male Cognitive needs: No Hearing needs: Yes Vision needs: Yes Physical Exam Vital Signs: Last Vital Signs Pulse 96 05/19/25 08:08 BP 140/90 H 05/19/25 08:08 Pulse Ox 93 05/19/25 08:08 Oxygen Delivery Method Room Air 05/19/25 08:08 BMI result Body Mass Index 40.3 Const Other: Well-nourished well-developed very friendly male awake alert and oriented x3 in no acute distress Extrem Other: Bilateral lower extremity examination shows good capillary refill, no skin lesions noted, normal sensation light touch Right knee examination shows a minimal effusion, mild crepitus with range of motion, tenderness along his medial and lateral joint lines, positive Olena's test, no instability Results Reviewed Results Reviewed: Standing full weight-bearing x-rays of the patient's right knee show mild diffuse joint space narrowing, no acute bony abnormalities MRI of the patient's right knee shows mild diffuse degenerative changes as well as tearing of his medial and lateral menisci Assessment & Plan Assessment & Plan (1) Tear of medial meniscus of right knee: Code(s): S83.241A - Other tear of medial meniscus, current injury, right knee, initial encounter Category: Medical Qualifiers: Encounter type: sequela Meniscus tear of knee type: unspecified type Tear current or old: current Qualified Code(s): S83.241S - Other tear of medial meniscus, current injury, right knee, sequela Plan Mr. Devaughn Parry presents with progressively worsening right knee pain and mechanical symptoms due to medial and lateral meniscus tearing. I had a lengthy discussion with the patient regarding the treatment options. At this point he has failed continued non operative treatments. The risks and benefits of right knee arthroscopic surgery were discussed at length with the patient. The patient wishes to proceed with surgery. Surgery will involve right knee arthroscopic partial medial and lateral meniscectomies. The patient does understand that he may not get 100% relief of his symptoms depending on the severity of his degenerative changes. He will be scheduled for next available date. He will be given a prescription for pain medicine at the time of his surgery. He will follow-up as instructed. Feel free to call me at any time should questions regarding his orthopedic management arise. I spent 20 minutes in reviewing the patient's records and imaging studies, seeing the patient and documenting in the medical record. Coding Level of Care Code Est Pt Level 3 (73796) Complex EM visit Add On G2211 Diagnoses Tear of medial meniscus of right knee, current, unspecified tear type, sequela S83.241S Encounter type: sequela Meniscus tear of knee type: unspecified type Tear current or old: current
[2025-05-19 08:08] VITALS: BP 140/90; PULSE 96; O2SAT 93; BMI 40.3
== END 2025-05-19 08:02 | disposition home or self-care (01) ==
LOC: HO.HOS 07:44
PROVIDERS: PCP Family Medicine; Visit Provider Orthopaedic Surgery
DX: S83.241A Other tear of medial meniscus, current injury, right knee, initial encounter (principal)
CPT/HCPCS: 99214

== ENCOUNTER → 2025-05-19 07:43 | Outpatient (BNVA) | payer OTHER, SELFPAY | PROVIDERS: PCP Family Medicine; Visit Provider Orthopaedic Surgery | DX: M25.561 Pain in right knee (principal); S83.241S Other tear of medial meniscus, current injury, right knee, sequela | CPT/HCPCS: 99212 ==

== ENCOUNTER 2025-06-04 09:38 | Outpatient (AMB) | payer OTHER, SELFPAY ==
--- NOTE | 2025-06-04 10:46 | A.OFFPC_ITS ---
Vital Signs 06/04/25 10:58 06/04/25 11:40 Height 5 ft 8 in Weight 262 lb 4 oz BMI 39.9 BP 124/96 H 122/78 Blood Pressure Location Rt brachial Lt brachial Position Sitting Sitting Respiration 16 Pulse 73 Pulse Source Pulse Oximeter Temp 97.3 F Temp Source Temporal Artery Scan Pulse Oximetry (%) 96 Oxygen Delivery Method Room Air Intake Visit Reasons: Knee Arthroscopy Intake Note: Socrates presents in the office today for a Pre-Op for knee surgery. Needs refill of his albuterol inhaler and ibuprofen. Patient is looking for a handicap placard. Patient is looking for pain medication for his upcoming surgery in June. He would also like to discuss weight loss medication. 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 Trimmer Buffing Wheel Name: Vicente [id number] Allergies lisinopril Adverse Reaction (Intermediate, Verified 06/04/25 10:50) Cough, headache Medication List - Last Reconciled 06/04/25 by Sravani Ledesma, [facility]- albuterol sulfate 90 mcg/actuation 2 puffs inhalation Q4-6H PRN albuterol sulfate 1.25 mg (3 mL) inhalation Q4H 1 month atorvastatin 80 mg PO QPM blood pressure kit-extra large As directed buspirone 10 mg PO BID docusate sodium (Colace) 200 mg (2 x 100 mg) PO BEDTIME fluoxetine 20 mg PO DAILY loratadine 10 mg PO DAILY lorazepam mg PO PRN mecobalamin (vitamin B12) (B12 Active) 2,000 mcg (2 x 1,000 mcg) PO DAILY melatonin 3 mg PO BEDTIME miscellaneous medical supply air purifier for personal use as directed; pantoprazole 20 mg PO BID peg 3350-electrolytes 236-22.74-6.74 -5.86 gram (Golytely) 240 mL PO Q10M salicylic acid 3% (Selsun Blue (salicylic acid)) 1 appl topical 2XW PRN tiotropium-olodaterol 2.5-2.5 mcg/actuation (Stiolto Respimat) 2 puffs inhalation DAILY valsartan 80 mg PO BID 90 days ziprasidone HCl 20 mg PO BID Tobacco use date assessed: 06/04/25 Dental Screening Dental Screen Date: 06/04/25 Did you have a dental visit in the last 12 months?: Yes Did you have a dental problem in the last 6 months where you did not have access to dental care?: No Was dental information given to patient?: Patient has dentist HPI HPI Comments History of Present Illness Details Trimmer Buffing Wheel [id number] 54-year-old Afghan-speaking male hypert ension, COPD, GERD, hyperlipidemia, obesity, bilat renal cysts (benign), fatty liver, bilat breast mass, right bicep tendon rupture 06/2024, severe obstructive sleep apnea on CPAP, Hx of syphillis, DM2 s/p open incarcerated umbilical hernia w/mesh 12/2023, s/p Left knee arthroscopic surgery on 05/22/2024 Health Maintenance: Colonoscopy referred Vaccines - Tdap 2023, declined [facility]ists GI Pulmonology appt today for clearance General surgery Renal Ortho Here today for preoperative clearance. Surgery Type: R knee Anesthesia Type: General Surgeon: Dr Luevano Date: 07/02/25 Any past surgical procedures: Y see above Any complications from anesthesia or in post-op period: Denies ASA or NSAID Use: Ibuprofen. Current smoker: Denies Alcohol use: Denies Drug use: Denies METs: > 4 climb flight of stairs, golf, walk, yardwork Medical history: Asthma N COPD Y Obesity BMI 39.9 Diabetes A1c 7.0% today VA < 6 weeks, unstable angina, CHF, severe valve disease No Testing EKG today NSR Labs as below - Reports a history of essential hyperte nsion; blood pressure stable. - COPD has pulm clearance scheduled to day - Advised to stop ibuprofen intake 2 wee ks prior to reduce bleeding risk. Taking for pain - Reports recent rectal bleeding with bl ood on tissue; awaiting delayed colonoscopy. Message sent to GI on this. He has chronic mild, stable anemia. - Recent labs, including blood work and A1c, completed for surgical clearance. Review of Systems - Cardiovascular: Denies chest pain. - Pulmonary: Denies shortness of breath. - Gastrointestinal: Reports blood on tis analilia post wiping. - General: Denies fever or chills. - Musculoskeletal: Denies swelling of le gs. Exam Awake alert, NAD, pleasant and cooperative Scleras nonitceric bilat MMM RRR LS CTAB, dim throughout Abd round, protrubent, obese, normoactive bs, + hepatomegaly, nontender No edema BLE, decreased PP bilat, hairless, skin intact Mood and affect appropriate Discussion Notes I provided a detailed discussion on the importance of discontinuing ibuprofen two weeks prior to surgery to reduce bleeding risk. I confirmed that his pulmonology follow-up is ensuring his airway is clear for surgery. His recent labs, including A1c, have been completed and are satisfactory for the upcoming procedure. I addressed his concern regarding rectal bleeding and communicated with the team about the scheduling delay for his colonoscopy. I emphasized the need to continue blood pressure medications to manage his essential hypertension and provided his surgical clearance for Dr. Luevano. Follow-up care has been coordinated with both pulmonology and surgery teams. Patient was given time to ask questions. All questions were answered to their satisfaction. Assessment and Plan 1. Essential Hypertension - Continue antihypertensive medication. 2. COPD/MAEGAN on CPAP - Continue pulmonology follow-up for air way management pre-surgery. 3 Awaiting colonoscopy - Expedite scheduling for colonoscopy du e to hematochezia. 4. DM2 Diet controlled, a1c 7% 5. Pre-Op Clearance: Patient is medicall y cleared to proceed w/ surgery. Patient Instructions - Stop taking ibuprofen two weeks before surgery. - Keep taking your blood pressure medici ne daily. - Follow up with your weather strip installer to g et your airway prepped for surgery. - Wait for the team to call you to sched ule your colonoscopy. - Live healthy; follow your doctor's bhavana tangyle tips. - RTO for routine chronic f/u, sooner as needed. Consent Patient was informed and verbally consented to the use of an ambient scribe for clinic note documentation during this visit. Total time spent caring for the patient today was 45 minutes. This includes time spent before the visit reviewing the chart, time spent during the visit, and time spent after the visit on documentation, reviewing laboratory results, diagnostic imaging, medications, performing a medically necessary evaluation, counseling on diagnoses, care coordination, ordering appropriate tests, ordering appropriate medications, review of tests performed by other providers, reporting test results with the patient, communication with other healthcare providers. [facility] Medical History Tachycardia Breast mass, left Bilateral leg cramps Sore throat Breast mass, right Cyst of right breast Impacted cerumen, left ear Low back strain Morbid obesity Rib fractures Pre-op evaluation Elevated blood pressure reading Infected tooth Chronic constipation Normal physical exam Asthma, mild intermittent, poorly controlled Poor historian Asthma attacks lasting more than 24 hours Left upper quadrant abdominal pain Asthma Surgical History History of surgery on lower extremity History of arthroscopic knee surgery Subareolar mass of left breast Umbilical hernia, incarcerated (12/12/23) History of excision of mass (07/31/23) History of surgery on arm Hx of cholecystectomy Family History Other Substance abuse Social History (Updated 06/04/25 @ 10:57 by Isabel Irwin MA) Household Members: Family Housing: House Are you a primary nursing care attendant to a significant other at home: No Do you presently have visiting nurse or other home services: No 75 years or older and lives alone: No Unable to assess alcohol history related to: Unable to respond Alcohol intake: never Patient Tobacco Use Status: Former Tobacco user Tobacco use type: Cigarette Cigarette Packs Per Day: 4 Cigarettes Per Day: 80.0 Years Smoked: 30 e-Cigarette/Vaping Use: Never Used Second Hand Smoke Exposure: No service: No Current occupational status: employed and unemployed Current occupation: works nights Current occupational exposures/hazards: No Gender identity: Male Cognitive needs: No Hearing needs: Yes Vision needs: Yes Questionnaire Thrive Questionnaire Date Thrive assessed: 02/09/25 I am a: Parent/Caregiver What is your living situation today?: I do not have a steady places to live I am temporarily staying with others Within the past 12 months, did the food you bought not last and you didn't have the money to get more?: I choose not to answer this question Within the past 12 months, did you worry whether your food would run out before you got money to buy more?: I choose not to answer this question Do you have trouble paying for medicines?: No Do you have trouble getting transportation to medical appointments?: Yes Do you have trouble paying your heating and electricity bill?: I choose not to answer this question Do you have trouble taking care of your child, family member or friend?: Yes Do you have trouble with day-to-day activities such as bathing, preparing meals, shopping, managing finances, etc.?: No Are you currently unemployed and looking for a job?: I choose not to answer this question Are you interested in more education?: I choose not to answer this question Please select the resources that you would like help with: Housing/Alf Currently or been in a relationship where the following occur: I choose not to answer THRIVE Score: 2 DENISHA-7 AMB Questionnaire DENISHA-7 Date DENISHA - 7 assessed: 02/09/25 Source: Developed by Drs. Amauri Pandya, Roselyn Jeong, Nigel Posada and colleagues, with an educational beatrice from [employer]. Physical exam (Primary Care) Vital Signs: Last Vital Signs Temp 97.3 F 06/04/25 10:58 Pulse 73 06/04/25 10:58 Resp 16 06/04/25 10:58 BP 122/78 06/04/25 11:40 Pulse Ox 96 06/04/25 10:58 Oxygen Delivery Method Room Air 06/04/25 10:58 BMI result Body Mass Index 39.9 BMI Assessment/Plan discussion: High BMI High, discussed plan: lifestyle Tobacco/Smoking Status: Tobacco use Status Tobacco use date assessed 06/04/25 06/04/25 11:02 Patient Tobacco Use Status Former Tobacco user 06/04/25 10:57 Tobacco use type Cigarette 06/04/25 10:57 e-Cigarette/Vaping Use Never Used 06/04/25 10:57 Thrive Assessment: Date of Thrive Assessment Date Thrive assessed 02/09/25 06/04/25 10:47 Currently or been in a relationship where the following occur: I choose not to answer Office Procedures EKG [id number], Complete Results AMB Hemoglobin A1c AMB Hemoglobin A1c 7.0 % Last Edit by Isabel Irwin MA on 06/04/25 11:18 Results Reviewed Results Reviewed: Laboratory Last Values Hgb A1c (Clinic) 7.0 % (4.0-6.0) H 06/04/25 11:17 RUN: 06/04/25 1135 PAGE 1 [facility] [address] [place] [address] Jack Frame Tender: Shawn Hernandez M.D. Specimen Inquiry Name: Socrates Mejia Age/Sex: 54/M : 1970 Unit#: [id number] Attend Dr: Lobo Doran DO Re04/21/25 Status: DEP ER Location: .ED Disch: SPEC : [id number] FRANKI: 04/21/25 STATUS: COMP REQ : [id number] RECD: 04/21/[address]: Aye Solis COMP: 04/21/25 ENTERED: 04/21/[address]: Physician,Unknown ORDERED: CBC Auto Diff Test Result Flag Reference WBC 9.5 4.8-10.8 X10*3/uL RBC 5.22 4.60-5.80 X10*6/uL HGB 13.5 L 14.0-18.0 g/dl HCT 41.2 L 42.0-52.0 % MCV 78.9 L 80.0-98.0 fL MCH 25.9 L 27.0-33.0 pg MCHC 32.8 31.0-36.0 g/dl RDW 15.2 11.0-16.0 % PLT 284 160-400 X10*3/uL MPV 9.4 9.4-12.4 fL Neut Pct Auto 51.8 45-73 % ImGran Pct Auto 1.0 H 0.0-0.4 % Lymp Pct Auto 37.1 20-40 % [place] Pct Auto 7.4 2-11 % Eos Pct Auto 2.2 0-4 % Baso Pct Auto 0.5 0-2 % NRBC Pct Auto 0.0 0.0-0.2 /100WBC ANC Neut Abs # 4.9 2.0-8.3 x10*3/uL ImGran Abs Auto 0.09 H 0.00-0.03 X10*3/uL Lymph Abs Auto 3.5 1.2-4.9 X10*3/uL [place] Abs Auto 0.7 0.1-1.2 X10*3/uL Eos Abs Auto 0.2 0.0-0.4 X10*3/uL Baso Abs Auto 0.1 0.0-0.2 X10*3/uL NRBC Abs Auto 0.000 0.0-0.012 X10*3/uL RUN: 06/04/25 1136 PAGE 1 [facility] [address] [place] [id number] Jack Frame Tender: Shawn Hernandez M.D. Specimen Inquiry Name: Socrates Mejia Age/Sex: 54/M : 1970 Unit#: [id number] Attend Dr: Lobo Doran DO Re04/21/25 Status: DEP ER Location: .ED Disch: SPEC : [id number] FRANKI: 04/21/25 STATUS: COMP REQ : [id number] RECD: 04/21/25-[address]: Aye Solis COMP: 04/21/25-1247 ENTERED: 04/21/25-[address]: Physician,Unknown ORDERED: CMP, MG Test Result Flag Reference Sodium 141 135-145 mmol/L Potassium 3.6 3.3-5.1 mmol/L CL 107 96-108 mmol/L CO2 27 22-29 mmol/L Gap 11 L 12-20 BUN 16 9-16 mg/dL Creat 0.81 0.5-1.4 mg/dL Estimated CrCl 133.0 eGFR (calculated from the MDRD study equation) and eCrCl (calculated from the Cockcroft-Gault equation) are based on different parameters and may not yield comparable results. If eCrCl result is absurd, please check patient's height/weight. eGFR > 60 Chronic Kidney Disease: Estimated GFR < 60 mL/min/1.73m2 Severe Kidney Disease: Estimated GFR < 15 mL/min/1.73m2 Glucose, Random 102 60-115 mg/dL CA 9.3 8.4-10.2 mg/dL Magnesium 1.6 1.6-2.6 mg/dL Total Bili 0.3 0.0-1.0 mg/dL AST (GOT) 20 5-37 U/L ALT (GPT) 23 0-40 U/L Protein, Total 6.9 6.5-8.0 g/dL Alb 4.1 3.5-5.0 g/dL Alk Phos 65 39-117 U/L Coding Level of Care Code Est Pt Level 5 (32153) Complex EM visit Add On G2211 Diagnoses Pre-op exam Z01.818 Primary hypertension I10 Hypertension type: primary hypertension High cholesterol E78.00 Severe obstructive sleep apnea-hypopnea syndrome G47.33 Simple chronic bronchitis J41.0 COPD type: chronic bronchitis Chronic bronchitis type: simple Diabetes type 2 E11.9 Diabetes mellitus long-term insulin use: without long-term use Obesity (BMI 30-39.9) E66.9 CPT Codes EKG - CPT: 60577-[id number], Complete ([id number]) Assessment & Plan Assessment & Plan (1) Pre-op exam: Code(s): Z01.818 - Encounter for other preprocedural examination Plan: Pre-Op Clearance: Patient is medically cleared to proceed w/ surgery. (2) Hypertension: Comment: goal <130/80 Code(s): I10 - Essential (primary) hypertension Category: Social Hx Qualifiers: Hypertension type: primary hypertension Qualified Code(s): I10 - Essential (primary) hypertension (3) High cholesterol: Comment: LDL goal < 70 on statin Code(s): E78.00 - Pure hypercholesterolemia, unspecified Category: Medical (4) Severe obstructive sleep apnea-hypopnea syndrome: Comment: on CPAP Code(s): G47.33 - Obstructive sleep apnea (adult) (pediatric) Category: Medical (5) COPD (chronic obstructive pulmonary disease): Code(s): J44.9 - Chronic obstructive pulmonary disease, unspecified Category: Medical Qualifiers: COPD type: chronic bronchitis Chronic bronchitis type: simple Qualified Code(s): J41.0 - Simple chronic bronchitis (6) Diabetes type 2: Code(s): E11.9 - Type 2 diabetes mellitus without complications Category: Medical Qualifiers: Diabetes mellitus long-term insulin use: without long-term use (7) Obesity (BMI 30-39.9): Code(s): E66.9 - Obesity, unspecified Category: Medical Plan . Orders: Orders AMB Hemoglobin A1c Today R73.03 - Prediabetes Medications: Discontinued ibuprofen Discontinued Reason: Patient Completed Course 600 mg PO Q6H PRN 14 tabs 0RF pain
[2025-06-04 10:58] VITALS: BP 124/96; PULSE 73; RESP 16; TEMP 36.3; O2SAT 96; BMI 39.9
[2025-06-04 11:40] VITALS: BP 122/78
== END 2025-06-04 12:20 | disposition home or self-care (01) ==
LOC: HO.HMCFM 09:38
PROVIDERS: PCP Nurse Practitioner Family; Visit Provider Nurse Practitioner Family
DX: J41.0 Simple chronic bronchitis (principal); E11.9 Type 2 diabetes mellitus without complications; E66.9 Obesity, unspecified; Z68.39 Body mass index [BMI] 39.0-39.9, adult; Z01.818 Encounter for other preprocedural examination; I10 Essential (primary) hypertension; E78.00 Pure hypercholesterolemia, unspecified; G47.33 Obstructive sleep apnea (adult) (pediatric)

== ENCOUNTER → 2025-06-04 09:38 | Outpatient (BNVA) | payer OTHER, SELFPAY | PROVIDERS: PCP Nurse Practitioner Family; Visit Provider Nurse Practitioner Family | DX: Z01.811 Encounter for preprocedural respiratory examination (principal); G47.33 Obstructive sleep apnea (adult) (pediatric); J41.0 Simple chronic bronchitis; I10 Essential (primary) hypertension; K21.9 Gastro-esophageal reflux disease without esophagitis; E78.5 Hyperlipidemia, unspecified; E66.9 Obesity, unspecified; Z87.891 Personal history of nicotine dependence; Z99.89 Dependence on other enabling machines and devices; Z68.39 Body mass index [BMI] 39.0-39.9, adult | CPT/HCPCS: 83036; 93005; 99212 ==

== ENCOUNTER 2025-06-04 14:59 | Outpatient (AMB) | payer OTHER, SELFPAY ==
[2025-06-04 15:01] VITALS: BP 134/80; PULSE 97; O2SAT 96; BMI 39.8
--- NOTE | 2025-06-04 15:01 | MHC.OFFVIS ---
Vital Signs 06/04/25 15:01 Height 5 ft 8 in Weight 262 lb BMI 39.8 BP 134/80 Blood Pressure Location Lt brachial Position Sitting Pulse 97 Pulse Source Pulse Oximeter Pulse Oximetry (%) 96 Oxygen Delivery Method Room Air Intake Visit Reasons: Flori Bosch 07/02 Quality Inspector Required: Yes Quality Inspector Name: Tracy Fisher Moises.L.M Allergies lisinopril Adverse Reaction (Intermediate, Verified 06/04/25 15:05) Cough, headache HPI HPI Flori Bosch 07/02: Details: 54-year-old gentleman, former 75 pack-year smoker, quit 2021, followed for underlying COPD and severe MAEGAN. He has been using CPAP with good control of his sleep apnea symptoms. He continues on Stiolto and albuterol MDI with good control of his dyspnea symptoms. He denies recent exacerbations. [facility] Medical History Tachycardia Breast mass, left Bilateral leg cramps Sore throat Breast mass, right Cyst of right breast Impacted cerumen, left ear Low back strain Morbid obesity Rib fractures Pre-op evaluation Elevated blood pressure reading Infected tooth Chronic constipation Normal physical exam Asthma, mild intermittent, poorly controlled Poor historian Asthma attacks lasting more than 24 hours Left upper quadrant abdominal pain Asthma Surgical History History of surgery on lower extremity History of arthroscopic knee surgery Subareolar mass of left breast Umbilical hernia, incarcerated (12/12/23) History of excision of mass (07/31/23) History of surgery on arm Hx of cholecystectomy Family History Other Substance abuse Social History (Updated 06/04/25 @ 10:57 by Isabel Irwin MA) Household Members: Family Housing: House Are you a primary resident care aid to a significant other at home: No Do you presently have visiting nurse or other home services: No 75 years or older and lives alone: No Unable to assess alcohol history related to: Unable to respond Alcohol intake: never Patient Tobacco Use Status: Former Tobacco user Tobacco use type: Cigarette Cigarette Packs Per Day: 4 Cigarettes Per Day: 80.0 Years Smoked: 30 e-Cigarette/Vaping Use: Never Used Second Hand Smoke Exposure: No service: No Current occupational status: employed and unemployed Current occupation: works nights Current occupational exposures/hazards: No Gender identity: Male Cognitive needs: No Hearing needs: Yes Vision needs: Yes Review of Systems Const Denies daytime sleepiness, Denies excessive sweating, Denies fatigue, Denies fever(s), Denies lethargy, Denies malaise, Denies night sweats, Denies snoring and Denies weight loss Eyes Denies blurry vision and Denies itchy eyes ENT Denies nasal congestion, Denies post nasal drip, Denies sinus pain, Denies sinus pressure and Denies other ( Thrush) Card Denies chest pain, Denies pedal edema, Denies dyspnea, Denies orthopnea and Denies paroxysmal nocturnal dyspnea Resp Denies cough, Denies hemoptysis, Denies excessive phlegm production, Denies dyspnea, Denies snoring and Denies wheezing GI Denies abdominal pain and Denies heartburn Musc Denies myalgias, Denies arthralgias and Denies joint swelling Skin/Breast Denies rash Neuro Denies memory loss and Denies seizure-like activity Psych Denies abnormal sleep pattern, Denies anxiety and Denies memory loss Endo Denies excessive sweating, Denies fatigue and Denies heat intolerance Grupo/Lymph Denies easy bruising Aller/Immun Denies itchy eyes, Denies seasonal rhinorrhea and Denies wheezing Physical Exam Vital Signs: Last Vital Signs Pulse 97 06/04/25 15:01 BP 134/80 06/04/25 15:01 Pulse Ox 96 06/04/25 15:01 Oxygen Delivery Method Room Air 06/04/25 15:01 BMI result Body Mass Index 39.8 Const General: no acute distress and alert Nutritional Appearance: obese Orientation/consciousness: Other orientation findings ( oriented) HEENT Head: Yes atraumatic Eyes General: appearance normal, both eyes and all related structures Sclerae: sclerae normal EOM: EOMs intact bilaterally Neck Neck: Yes supple Lymphatic: no lymphadenopathy noted Resp Effort & Inspection: normal respiratory effort and no use of accessory muscles Auscultation: clear to auscultation bilaterally Cardio Rate: regular rate Rhythm: regular rhythm Heart sounds: no gallops, no murmurs and no rubs Skin General skin exam: other ( warm) Extrem General: No clubbing, No cyanosis and No edema Results AMB Hemoglobin A1c AMB Hemoglobin A1c 7.0 % Last Edit by Isabel Irwin MA on 06/04/25 11:18 Assessment & Plan Assessment & Plan (1) COPD (chronic obstructive pulmonary disease): Code(s): J44.9 - Chronic obstructive pulmonary disease, unspecified Category: Medical Qualifiers: COPD type: chronic bronchitis Chronic bronchitis type: simple Qualified Code(s): J41.0 - Simple chronic bronchitis Plan: Well controlled on current regimen of Stiolto and albuterol MDI. Continue current regimen. (2) Encounter for preoperative pulmonary examination: Code(s): Z01.811 - Encounter for preprocedural respiratory examination Category: Medical Plan: At this time patient is at low risk for pulmonary perioperative complications for the proposed right total knee replacement under general anesthesia. Secondary to underlying severe MAEGAN, consider extubation to BiPAP. (3) Severe obstructive sleep apnea-hypopnea syndrome: Code(s): G47.33 - Obstructive sleep apnea (adult) (pediatric) Category: Medical Plan: Well controlled on underlying noninvasive ventilation. Continue current therapy. Coding Level of Care Code Est Pt Level 4 (18432) Complex EM visit Add On G2211 Diagnoses Simple chronic bronchitis J41.0 COPD type: chronic bronchitis Chronic bronchitis type: simple Encounter for preoperative pulmonary examination Z01.811 Severe obstructive sleep apnea-hypopnea syndrome G47.33
== END 2025-06-04 15:12 | disposition home or self-care (01) ==
LOC: HO.HPS 15:00
PROVIDERS: PCP Nurse Practitioner Family; Visit Provider Internal Medicine Pulmonary Disease
DX: J41.0 Simple chronic bronchitis (principal); Z01.811 Encounter for preprocedural respiratory examination; G47.33 Obstructive sleep apnea (adult) (pediatric)
CPT/HCPCS: 99214

== ENCOUNTER 2025-06-08 13:45 | Outpatient (REF) | payer OTHER, SELFPAY ==
[2025-06-08 17:37] LABS: MANUAL DIFF FLAG NO
[2025-06-08 17:46] LABS: Hematocrit 43.6 % (42.0-52.0); Hemoglobin 13.9 g/dl (14.0-18.0); Imm Gran Abs Auto 0.04 X10*3/uL (0.00-0.03); Imm Gran Pct Auto 0.6 % (0.0-0.4); Lymphocytes Absolute Auto 1.9 X10*3/uL (1.2-4.9); Mean Corpuscular HGB Conc 31.9 g/dl (31.0-36.0); Mean Corpuscular Hemoglobin 25.3 pg (27.0-33.0); Mean Corpuscular Volume 79.3 fL (80.0-98.0); NRBC Abs Auto 0.000 X10*3/uL (0.0-0.012); NRBC Pct Auto 0.0 /100WBC (0.0-0.2); Platelet Count 297 X10*3/uL (160-400); Red Blood Count 5.50 X10*6/uL (4.60-5.80); White Blood Count 6.6 X10*3/uL (4.8-10.8)
[2025-06-08 18:06] LABS: Alanine Aminotransferase 19 U/L (0-40); Albumin Level 4.1 g/dL (3.5-5.0); Alkaline Phosphatase 68 U/L (39-117); Anion Gap 12 (12-20); Aspartate Amino Transferase 27 U/L (5-37); Blood Urea Nitrogen 20 mg/dL (9-16); Calcium 9.2 mg/dL (8.4-10.2); Carbon Dioxide 28 mmol/L (22-29); Chloride 104 mmol/L (96-108); Cholesterol 273 mg/dL (<200); Estimated Glomerular Filt Rate > 60; HDL Cholesterol 48 mg/dL (>40); Hemoglobin A1C 189.5836 umol/L; Potassium 4.3 mmol/L (3.3-5.1); Sodium 140 mmol/L (135-145); Total Hemoglobin (HGBA1C) 3673.9630 umol/L; Total Protein 6.9 g/dL (6.5-8.0); Triglycerides 390 mg/dL (<150)
== END 2025-06-08 13:46 | disposition home or self-care (01) ==
LOC: HO.WFDLDS 13:45
PROVIDERS: Visit Provider Nurse Practitioner Psychiatric/Mental Health
DX: F32.3 Major depressive disorder, single episode, severe with psychotic features (principal); Z13.1 Encounter for screening for diabetes mellitus
CPT/HCPCS: 36415; 80053; 80061; 83036; 85025

== ENCOUNTER 2025-06-10 08:59 | Outpatient (AMB) | payer OTHER, SELFPAY ==
--- NOTE | 2025-06-10 07:17 | MHC.PC.OV ---
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: No Allergies lisinopril Adverse Reaction (Intermediate, Verified 06/10/25 09:00) Cough, headache Medication List - Last Reconciled 06/10/25 by Sravani Ledesma, [facility]- albuterol sulfate 90 mcg/actuation 2 puffs inhalation Q4-6H PRN albuterol sulfate 1.25 mg (3 mL) inhalation Q4H 1 month atorvastatin 80 mg PO QPM blood pressure kit-extra large As directed buspirone 10 mg PO BID docusate sodium (Colace) 200 mg (2 x 100 mg) PO BEDTIME fluoxetine 20 mg PO DAILY loratadine 10 mg PO DAILY lorazepam mg PO PRN mecobalamin (vitamin B12) (B12 Active) 2,000 mcg (2 x 1,000 mcg) PO DAILY melatonin 3 mg PO BEDTIME miscellaneous medical supply air purifier for personal use as directed; pantoprazole 20 mg PO BID peg 3350-electrolytes 236-22.74-6.74 -5.86 gram (Golytely) 240 mL PO Q10M salicylic acid 3% (Selsun Blue (salicylic acid)) 1 appl topical 2XW PRN tiotropium-olodaterol 2.5-2.5 mcg/actuation (Stiolto Respimat) 2 puffs inhalation DAILY valsartan 80 mg PO BID 90 days ziprasidone HCl 20 mg PO BID Tobacco use date assessed: 06/04/25 Dental Screening Dental Screen Date: 06/04/25 HPI HPI Comments History of Present Illness Details 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 [id number] 54-year-old Divehi-speaking male hypertension, COPD, GERD, hyperlipidemia, obesity, bilat renal cysts (benign), fatty liver, bilat breast mass, right bicep tendon rupture 06/2024, severe obstructive sleep apnea on CPAP, Hx of syphillis, DM2 s/p open incarcerated umbilical hernia w/mesh 12/2023, s/p Left knee arthroscopic surgery on 05/22/2024 Requesting handicap placards Will be having R meniscal tear surgery repair Current tear affects mobility Plan: handicap placard, temporary, 3 months, completed He will need to sign the first page before it can be sent to the [facility] I will have my staff coordinate all of this for him. Aware this is temporary for recovery needed for knee surgery. Telehealth Attestation The patient has been explained that this is an interactive (audio/video) telehealth encounter and what that consists of. The patient understands and wishes to proceed. [employer] platform was used. Total time spent caring for the patient today was 11 minutes. This includes time spent before the visit reviewing the chart, time spent during the visit, and time spent after the visit on documentation, reviewing laboratory results, diagnostic imaging, medications, performing a medically necessary evaluation, counseling on diagnoses, care coordination, ordering appropriate tests, ordering appropriate medications, review of tests performed by other providers, reporting test results with the patient, communication with other healthcare providers. [facility] Medical History Tachycardia Breast mass, left Bilateral leg cramps Sore throat Breast mass, right Cyst of right breast Impacted cerumen, left ear Low back strain Morbid obesity Rib fractures Pre-op evaluation Elevated blood pressure reading Infected tooth Chronic constipation Normal physical exam Asthma, mild intermittent, poorly controlled Poor historian Asthma attacks lasting more than 24 hours Left upper quadrant abdominal pain Asthma Surgical History History of surgery on lower extremity History of arthroscopic knee surgery Subareolar mass of left breast Umbilical hernia, incarcerated (12/12/23) History of excision of mass (07/31/23) History of surgery on arm Hx of cholecystectomy Family History Other Substance abuse Social History (Updated 06/04/25 @ 10:57 by Isabel Irwin MA) Household Members: Family Housing: House Are you a primary careers adviser to a significant other at home: No Do you presently have visiting nurse or other home services: No 75 years or older and lives alone: No Unable to assess alcohol history related to: Unable to respond Alcohol intake: never Patient Tobacco Use Status: Former Tobacco user Tobacco use type: Cigarette Cigarette Packs Per Day: 4 Cigarettes Per Day: 80.0 Years Smoked: 30 Packs Per Year: 120 Packs per year/per ci.00 e-Cigarette/Vaping Use: Never Used Second Hand Smoke Exposure: No service: No Current occupational status: employed and unemployed Current occupation: works nights Current occupational exposures/hazards: No Gender identity: Male Cognitive needs: No Hearing needs: Yes Vision needs: Yes Questionnaire Thrive Questionnaire Date Thrive assessed: 02/09/25 DENISHA-7 AMB Questionnaire DENISHA-7 Date DENISHA - 7 assessed: 02/09/25 Source: Developed by Drs. Amauri Pandya, Roselyn Jeong, Nigel Posada and colleagues, with an educational beatrice from [employer]. Physical exam (Primary Care) Tobacco/Smoking Status: Tobacco use Status Tobacco use date assessed 06/04/25 06/10/25 07:19 Patient Tobacco Use Status Former Tobacco user 06/10/25 07:19 Tobacco use type Cigarette 06/10/25 07:19 e-Cigarette/Vaping Use Never Used 06/10/25 07:19 Thrive Assessment: Date of Thrive Assessment Date Thrive assessed 02/09/25 06/10/25 07:19 Telehealth Telehealth Telehealth Platform: [facility] Location of provider rendering services: practice address Location of patient: address on file Patient Identification confirmed using: Name, : Yes Telehealth method: voice only Patient verbally consented to treatment: Yes Patient verbally consented to billing insurance company: Yes Patient informed of any privacy concerns related to visit: Yes Minutes spent on Phone/Video with Pt.: 5 Coding Level of Care Code Tele Est Pt Level 2 (35712) Complex EM visit Add On G2211 Diagnoses Encounters for administrative purpose Z02.9 Tear of medial meniscus of right knee, current, unspecified tear type, sequela S83.241S Tear current or old: current Encounter type: sequela Meniscus tear of knee type: unspecified type Assessment & Plan Assessment & Plan (1) Encounters for administrative purpose: Code(s): Z02.9 - Encounter for administrative examinations, unspecified (2) Tear of medial meniscus of right knee: Code(s): S83.241A - Other tear of medial meniscus, current injury, right knee, initial encounter Category: Medical Qualifiers: Tear current or old: current Encounter type: sequela Meniscus tear of knee type: unspecified type Qualified Code(s): S83.241S - Other tear of medial meniscus, current injury, right knee, sequela Plan .
== END 2025-06-10 09:14 | disposition home or self-care (01) ==
LOC: HO.HMCFM 08:59
PROVIDERS: PCP Nurse Practitioner Family; Visit Provider Nurse Practitioner Family
DX: S83.241D Other tear of medial meniscus, current injury, right knee, subsequent encounter (principal)

== ENCOUNTER 2025-07-02 09:33 | Day surgery (SDC) | payer OTHER, SELFPAY ==
[2025-06-18 12:47] VITALS: BMI 47.3
--- NOTE | 2025-06-21 12:02 | HO.ANESPROP2 ---
Documented by User: Jumana Amato NP 06/21/25 12:12 HPI - Anesthesia Eval Consult details Narrative: 54yo M for Right Knee Arthroscopy,with partial Medial and Lateral meniscectomy, 07/02/25 Pulmo optimized. [place] [facility] [place], severe MAEGAN, Asthma. Well controlled and stable at 05/2025 office visit. Consider extubation to PAP.w [place] [facility] [place] Microalbuminuria, simple renal cyst, htn. Stable at 11/2024 office visit without change to regimen. BMI 47 PMFSH Active Problems Active Problems: All Active Problems Obesity (BMI 30-39.9) (Acute) Diabetes type 2 (Acute) Acquired syphilis (Acute) Dysphagia (Acute) Diarrhea (Acute) Encounter for screening involving social determinants of health (SDoH) (Acute) Encounter for preoperative pulmonary examination (Acute) Tear of medial meniscus of right knee (Acute) Glossitis (Acute) Nocturnal hypoxemia (Acute) Severe obstructive sleep apnea-hypopnea syndrome (Acute) Medically noncompliant (Acute) Influenza vaccination declined (Acute) Dandruff in adult (Acute) Chronic daily headache (Acute) Biceps tendon rupture, proximal (Acute) Renal cyst (Acute) Microalbuminuria (Acute) Left knee pain (Acute) Blurred vision (Acute) Screen for colon cancer (Acute) Bilateral renal cysts (Acute) Fatty liver (Acute) Encounter for general adult medical examination without abnormal findings (Acute) Status post umbilical hernia repair, follow-up exam (Acute) Hypertension (Acute) High cholesterol (Acute) COPD (chronic obstructive pulmonary disease) (Acute) Acid reflux (Acute) Umbilical hernia, incarcerated (Acute 12/12/23) Asthma (Acute) Past Medical History Medical History Umbilical hernia Depression COVID Tachycardia Breast mass, left Bilateral leg cramps Sore throat Breast mass, right Cyst of right breast Impacted cerumen, left ear Low back strain Morbid obesity Rib fractures Pre-op evaluation Elevated blood pressure reading Infected tooth Chronic constipation Normal physical exam Asthma, mild intermittent, poorly controlled Poor historian Asthma attacks lasting more than 24 hours Left upper quadrant abdominal pain Asthma Family History Family History Other Substance abuse Family history of problems with anesthesia: No Surgical History Surgical History History of surgery on lower extremity History of arthroscopic knee surgery Subareolar mass of left breast Umbilical hernia, incarcerated (12/12/23) History of excision of mass (07/31/23) History of surgery on arm Hx of cholecystectomy History of Problems with Anesthesia: Yes Social History Social History Household Members: Family Housing: House Are you a primary health careers instructor to a significant other at home: No Do you presently have visiting nurse or other home services: No Unable to assess alcohol history related to: Unable to respond Alcohol intake: never Patient Tobacco Use Status: Former Tobacco user Tobacco use type: Cigarette Cigarette Packs Per Day: 4 Cigarettes Per Day: 80.0 Years Smoked: 30 e-Cigarette/Vaping Use: Never Used Second Hand Smoke Exposure: No Use of substances other than those prescribed or required for medical reasons: No Have you been hit, kicked, punched, or otherwise hurt by someone within the past year? If so, by whom?: No Are you DNR?: No Advance Directives: No Advance Directives Information Provided: Yes Advance Directives on File: No Poor oral hygiene: Yes service: No Current occupational status: employed and unemployed Current occupation: works nights Current occupational exposures/hazards: No Gender identity: Male Cognitive needs: No Hearing needs: Yes Vision needs: Yes Meds Allergies Allergy/AdvReac Type Severity Reaction Status Date / Time lisinopril AdvReac Intermediate Cough, Verified 07/02/25 10:17 headache Home Medications ?Medication ?Instructions ?Recorded ?Confirmed ?Last Taken ?Type fluoxetine 20 mg capsule 20 mg PO DAILY 03/05/24 07/02/25 Unknown History buspirone 10 mg tablet 10 mg PO BID 04/02/24 07/02/25 Unknown History ziprasidone HCl 20 mg capsule 20 mg PO BID 04/02/24 07/02/25 Unknown History Exam Height,Weight and Vital Signs: Height 5 ft 3 in Weight 121.109 kg Pertinent Lab Results Pertinent Lab Results: Laboratory Tests 06/08/25 13:49 WBC 6.6 Hgb 13.9 L Hct 43.6 Plt Count 297 Sodium 140 Potassium 4.3 Chloride 104 Carbon Dioxide 28 BUN 20 H Creatinine 0.76 Narrative Narrative: EKG 02/2025 Vent. Rate : 66 BPM Atrial Rate : 66 BPM P-R Int : 198 ms QRS Dur : 70 ms QT Int : 434 ms P-R-T Axes : 37 20 27 degrees QTcB Int : 454 ms Normal sinus rhythm Nonspecific T wave abnormality Abnormal ECG When compared with ECG of 04-Sep-2024 17:32, No significant change was found Assessment and Plan Assessment Anesthesia Assessment: Chart Reviewed Final Anesthetic Review Family History of Problems with Anesthesia: No History of Problems with Anesthesia: Yes Documented by User: Homa Howard MD 07/02/25 11:12 [facility] Past Medical History Medical History Umbilical hernia Depression COVID Tachycardia Breast mass, left Bilateral leg cramps Sore throat Breast mass, right Cyst of right breast Impacted cerumen, left ear Low back strain Morbid obesity Rib fractures Pre-op evaluation Elevated blood pressure reading Infected tooth Chronic constipation Normal physical exam Asthma, mild intermittent, poorly controlled Poor historian Asthma attacks lasting more than 24 hours Left upper quadrant abdominal pain Asthma Family History Family History Other Substance abuse Surgical History Surgical History History of surgery on lower extremity History of arthroscopic knee surgery Subareolar mass of left breast Umbilical hernia, incarcerated (12/12/23) History of excision of mass (07/31/23) History of surgery on arm Hx of cholecystectomy Social History Social History Household Members: Family Housing: House Are you a primary health careers instructor to a significant other at home: No Do you presently have visiting nurse or other home services: No Unable to assess alcohol history related to: Unable to respond Alcohol intake: never Patient Tobacco Use Status: Former Tobacco user Tobacco use type: Cigarette Cigarette Packs Per Day: 4 Cigarettes Per Day: 80.0 Years Smoked: 30 e-Cigarette/Vaping Use: Never Used Second Hand Smoke Exposure: No Use of substances other than those prescribed or required for medical reasons: No Have you been hit, kicked, punched, or otherwise hurt by someone within the past year? If so, by whom?: No Are you DNR?: No Advance Directives: No Advance Directives Information Provided: Yes Advance Directives on File: No Poor oral hygiene: Yes service: No Current occupational status: employed and unemployed Current occupation: works nights Current occupational exposures/hazards: No Gender identity: Male Cognitive needs: No Hearing needs: Yes Vision needs: Yes Meds Allergies Allergy/AdvReac Type Severity Reaction Status Date / Time lisinopril AdvReac Intermediate Cough, Verified 07/02/25 10:17 headache Home Medications ?Medication ?Instructions ?Recorded ?Confirmed ?Last Taken ?Type fluoxetine 20 mg capsule 20 mg PO DAILY 03/05/24 07/02/25 Unknown History buspirone 10 mg tablet 10 mg PO BID 04/02/24 07/02/25 Unknown History ziprasidone HCl 20 mg capsule 20 mg PO BID 04/02/24 07/02/25 Unknown History Exam Airway Mallampati Class: III TM Dist: <=3cm Neck ROM: Full Heart: rrr Lungs: cta Assessment and Plan Assessment Anesthesia Assessment: Anesthesia Plan Discussed Final Anesthetic Review NPO: Yes ASA Class: III Final Preanesthetic Review: No Changes in Pt Med Stat, Meds/Allgs Chart Reviewed, Consent Obtained/Reviewed and Anes Risks/Benef Reviewed Patient Risk: Intermediate Procedure Risk: Intermediate Anesthetic Plan Anesthetic Plan: GA and Agree w/ Assess. and Plan Disposition: Standard PACU
[2025-07-02] VITALS (11 sets, daily range): BP systolic 123–177; BP diastolic 72–121; PULSE 73–98; RESP 14–18; TEMP 36.1–36.6; O2SAT 92–98
[2025-07-02] MEDS: Lactated Ringers 1,000 ML 100 ML IVCONT (10:24)
--- NOTE | 2025-07-02 13:20 | P.BOP_ITS ---
Brief Operative Note Date of Service: 07/02/25 Pre-op diagnosis: Right knee medial meniscus tear, right knee lateral meniscus tear, right knee degenerative joint disease Post-op diagnosis: same Procedure: Right knee arthroscopic partial medial meniscectomy, right knee arthroscopic partial lateral meniscectomy, right knee arthroscopic chondroplasty of the undersurface of the patella as well as the medial femoral condyle Implants: none Surgeon: Wil Luevano MD Anesthesia: GLMA Was an Software Systems Analyst used for this Procedure?: No Estimated blood loss (mL): 10 Pathology: none sent Condition: stable Disposition: PACU
--- NOTE | 2025-07-02 13:21 | W.PM.OPN ---
Operative Note Operative Note Date of Service: 07/02/25 Narrative: After the patient was identified as Socrates Cantor and his right knee was initialed by myself they were brought to the operating room where general anesthesia was induced by the anesthesiologist in routine fashion. The patient was given 2 g of IV Ancef for infection prophylaxis. A formal time-out was completed. The patient's right lower extremity was prepped and draped in sterile fashion. Marcaine with epinephrine was injected into the planned incision sites as well as their right knee joint. A # 11 scalpel blade was used to make an anterolateral portal 1 cm proximal to the joint line and 1 cm lateral to the patellar tendon. Blunt trocar technique was used into the suprapatellar pouch with the knee in extension. Diagnostic arthroscopy showed multiple bands of thickened plica which would be excised at the end of the procedure. There were no loose bodies or abnormalities found in either the medial or lateral gutters. There were diffuse grades 1 and 2 degenerative changes of the undersurface of the patella as well as grade 1 degenerative changes of the trochlear groove. The patient's knee was flexed to 45 degrees and a valgus force was placed upon it. The medial compartment was entered. An anteromedial portal was made 1 cm proximal to the joint line and 1 cm medial to the patellar tendon. Probing of the medial meniscus showed a radial tear of the posterior horn. A partial medial meniscectomy was performed using the arthroscopic shaver. Following the partial meniscectomy the remainder of the meniscus tissue was stable. There were diffuse grades 1 and 2 degenerative changes of the medial femoral condyle as well as diffuse grade 1 degenerative changes of the medial tibial plateau. The articular surface of the medial femoral condyle was made smooth using the arthroscopic shaver. The articular surface of the medial tibial plateau was already smooth so no chondroplasty was indicated. The patient's knee was then placed into a neutral position. There was no injury to the anterior cruciate ligament. The patient's knee was then placed into the figure of 4 position and the lateral compartment was entered. There were minimal degenerative changes of the lateral femoral condyle and lateral tibial plateau. There was no evidence of lateral meniscus tearing. The patient's knee was once again brought into extension and the suprapatellar pouch was entered. The arthroscopic shaver and the ArthroCare Wand were used to excise the thickened bands of plica. The undersurface of the patella was then made smooth using the arthroscopic shaver. The articular surface of the trochlear groove was already smooth so no chondroplasty was indicated. The knee joint was irrigated and then drained. All arthroscopic instruments were removed. The 2 portals were closed with 3-0 nylon interrupted suture. The knee joint was injected with Marcaine. Dry sterile dressing and Chapito bandages were placed over the patient's knee. The patient was awoken and extubated in the operating room. They were transferred to the recovery room in stable condition.
== END 2025-07-02 15:12 | disposition home or self-care (01) ==
PROVIDERS: PCP Nurse Practitioner Family; Visit Provider Orthopaedic Surgery
PROC: (CPT 29870; principal; 2025-07-02 12:00)
DX: S83.241A Other tear of medial meniscus, current injury, right knee, initial encounter (principal); S83.281A Other tear of lateral meniscus, current injury, right knee, initial encounter; M25.561 Pain in right knee; M17.11 Unilateral primary osteoarthritis, right knee; M23.51 Chronic instability of knee, right knee; M67.51 Plica syndrome, right knee; X50.1XXA Overexertion from prolonged static or awkward postures, initial encounter; Y93.9 Activity, unspecified; Y92.9 Unspecified place or not applicable; Y99.9 Unspecified external cause status; R00.0 Tachycardia, unspecified; R03.0 Elevated blood-pressure reading, without diagnosis of hypertension; J45.20 Mild intermittent asthma, uncomplicated; J41.0 Simple chronic bronchitis; E66.01 Morbid (severe) obesity due to excess calories; Z68.41 Body mass index [BMI] 40.0-44.9, adult; G47.33 Obstructive sleep apnea (adult) (pediatric); Z79.1 Long term (current) use of non-steroidal anti-inflammatories (NSAID); Z79.899 Other long term (current) drug therapy; Z88.8 Allergy status to other drugs, medicaments and biological substances; Z87.891 Personal history of nicotine dependence; Z98.890 Other specified postprocedural states; Z99.89 Dependence on other enabling machines and devices
CPT/HCPCS: 29880; 29876; J0131; J0165; J0690; J0696; J2003; J2371; J2405; J2704; J2795; J3010

== ENCOUNTER → 2025-07-02 09:33 | Outpatient (BNV) | payer OTHER, SELFPAY | PROVIDERS: PCP Nurse Practitioner Family; Visit Provider Orthopaedic Surgery | DX: S83.241A Other tear of medial meniscus, current injury, right knee, initial encounter (principal) | CPT/HCPCS: 29880 ==

== ENCOUNTER 2025-07-15 09:03 | Outpatient (AMB) | payer OTHER, SELFPAY ==
--- NOTE | 2025-07-15 09:07 | MHC.OFFVIS ---
Intake Visit Reasons: PO RT knee 07/02/25 Intake Note: Socrates is a 54 year old man who presents today for a post operative visit status post undergoing a right knee arthroscopic surgery on 07/02/25. The patient reports moderate discomfort in his right knee. He states that he did not go to formal physical therapy following his left knee surgery last year. He has been taking oxycodone which gives him fairly good relief. He does not wish to go to formal physical therapy. He continues to walk with a cane for support. Allergies lisinopril Adverse Reaction (Intermediate, Verified 07/15/25 09:11) Cough, headache Medication List - Last Reconciled 07/15/25 by Wil Luevano MD albuterol sulfate 90 mcg/actuation (Ventolin HFA) 2 puffs inhalation QID PRN blood pressure kit-extra large As directed buspirone 10 mg PO BID docusate sodium (Colace) 200 mg (2 x 100 mg) PO BEDTIME fluoxetine 20 mg PO DAILY miscellaneous medical supply air purifier for personal use as directed; oxycodone 5 mg PO Q6H PRN pantoprazole 20 mg PO BID valsartan 80 mg PO BID 90 days ziprasidone HCl 20 mg PO BID PFSH Medical History Umbilical hernia Depression COVID Tachycardia Breast mass, left Bilateral leg cramps Sore throat Breast mass, right Cyst of right breast Impacted cerumen, left ear Low back strain Morbid obesity Rib fractures Pre-op evaluation Elevated blood pressure reading Infected tooth Chronic constipation Normal physical exam Asthma, mild intermittent, poorly controlled Poor historian Asthma attacks lasting more than 24 hours Left upper quadrant abdominal pain Asthma Surgical History History of surgery on lower extremity History of arthroscopic knee surgery Subareolar mass of left breast Umbilical hernia, incarcerated (12/12/23) History of excision of mass (07/31/23) History of surgery on arm Hx of cholecystectomy Family History Other Substance abuse Social History Household Members: Family Housing: House Are you a primary medicare compliance auditor to a significant other at home: No Do you presently have visiting nurse or other home services: No 75 years or older and lives alone: No Alcohol intake: never Patient Tobacco Use Status: Former Tobacco user Tobacco use type: Cigarette Cigarette Packs Per Day: 4 Cigarettes Per Day: 80.0 Years Smoked: 30 e-Cigarette/Vaping Use: Never Used Second Hand Smoke Exposure: No service: No Current occupational status: employed and unemployed Current occupation: works nights Current occupational exposures/hazards: No Gender identity: Male Cognitive needs: No Hearing needs: Yes Vision needs: Yes Physical Exam Extrem Other: Right knee examination shows that the surgical incisions are healing well, no erythema, mild discomfort with range of motion Assessment & Plan Assessment & Plan (1) Right knee pain: Code(s): M25.561 - Pain in right knee Category: Medical Plan Mr. Devaughn Parry is doing fairly well after undergoing right knee arthroscopic surgery on 07/02/2025. His sutures were removed and Steri-Strips placed over his incisions. He does not wish to go to formal physical therapy. He will continue with his home stretching program. I did refill his prescription for oxycodone. He will contact me prior to his follow-up appointment in 6-8 weeks should any questions or concerns arise. Feel free to call me at any time should questions regarding his orthopedic management arise. Medications: Changed From oxycodone Partial Fill upon patient request. 5 mg PO Q6H PRN 20 tabs 0RF pain To oxycodone Partial Fill upon patient request. 5 mg PO Q12H PRN 10 tabs 0RF pain Coding Level of Care Code Global (01051) Diagnoses Right knee pain M25.561
== END 2025-07-15 09:19 | disposition home or self-care (01) ==
LOC: HO.HOS 09:04
PROVIDERS: PCP Nurse Practitioner Family; Visit Provider Orthopaedic Surgery
DX: M25.561 Pain in right knee (principal)
CPT/HCPCS: 99024

== ENCOUNTER → 2025-07-15 09:03 | Outpatient (BNVA) | payer OTHER, SELFPAY | PROVIDERS: PCP Nurse Practitioner Family; Visit Provider Orthopaedic Surgery | DX: Z48.02 Encounter for removal of sutures (principal); M25.561 Pain in right knee; Z98.890 Other specified postprocedural states | CPT/HCPCS: 99212 ==

== ENCOUNTER 2025-07-21 12:35 | Outpatient (AMB) | payer OTHER, SELFPAY ==
[2025-07-21 13:03] VITALS: BP 120/82; PULSE 89; O2SAT 95; BMI 42.0
--- NOTE | 2025-07-21 13:03 | MHC.OFFVIS ---
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 He has been using CPAP with good control of his sleep apnea symptoms. He continues on Stiolto and albuterol MDI with good control of his dyspnea symptoms. He denies recent exacerbations. [facility] Medical History Umbilical hernia Depression COVID Tachycardia Breast mass, left Bilateral leg cramps Sore throat Breast mass, right Cyst of right breast Impacted cerumen, left ear Low back strain Morbid obesity Rib fractures Pre-op evaluation Elevated blood pressure reading Infected tooth Chronic constipation Normal physical exam Asthma, mild intermittent, poorly controlled Poor historian Asthma attacks lasting more than 24 hours Left upper quadrant abdominal pain Asthma Surgical History History of surgery on lower extremity History of arthroscopic knee surgery Subareolar mass of left breast Umbilical hernia, incarcerated (12/12/23) History of excision of mass (07/31/23) History of surgery on arm Hx of cholecystectomy Family History Other Substance abuse Social History Household Members: Family Housing: House Are you a primary home care giver to a significant other at home: No Do you presently have visiting nurse or other home services: No 75 years or older and lives alone: No Alcohol intake: never Patient Tobacco Use Status: Former Tobacco user Tobacco use type: Cigarette Cigarette Packs Per Day: 4 Cigarettes Per Day: 80.0 Years Smoked: 30 e-Cigarette/Vaping Use: Never Used Second Hand Smoke Exposure: No service: No Current occupational status: employed and unemployed Current occupation: works nights Current occupational exposures/hazards: No Gender identity: Male Cognitive needs: No Hearing needs: Yes Vision needs: Yes Review of Systems Const Denies daytime sleepiness, Denies excessive sweating, Denies fatigue, Denies fever(s), Denies lethargy, Denies malaise, Denies night sweats, Denies snoring and Denies weight loss Eyes Denies blurry vision and Denies itchy eyes ENT Denies nasal congestion, Denies post nasal drip, Denies sinus pain, Denies sinus pressure and Denies other ( Thrush) Card Denies chest pain, Denies pedal edema, Denies dyspnea, Denies orthopnea and Denies paroxysmal nocturnal dyspnea Resp Denies cough, Denies hemoptysis, Denies excessive phlegm production, Denies dyspnea, Denies snoring and Denies wheezing GI Denies abdominal pain and Denies heartburn Musc Denies myalgias, Denies arthralgias and Denies joint swelling Skin/Breast Denies rash Neuro Denies memory loss and Denies seizure-like activity Psych Denies abnormal sleep pattern, Denies anxiety and Denies memory loss Endo Denies excessive sweating, Denies fatigue and Denies heat intolerance Grupo/Lymph Denies easy bruising Aller/Immun Denies itchy eyes, Denies seasonal rhinorrhea and Denies wheezing Physical Exam Vital Signs: Last Vital Signs Pulse 89 07/21/25 13:03 BP 120/82 07/21/25 13:03 Pulse Ox 95 07/21/25 13:03 Oxygen Delivery Method Nasal Cannula 07/21/25 13:03 BMI result Body Mass Index 42.0 Const General: no acute distress and alert Nutritional Appearance: obese Orientation/consciousness: Other orientation findings ( oriented) HEENT Head: Yes atraumatic Eyes General: appearance normal, both eyes and all related structures Sclerae: sclerae normal EOM: EOMs intact bilaterally Neck Neck: Yes supple Lymphatic: no lymphadenopathy noted Resp Effort & Inspection: normal respiratory effort and no use of accessory muscles Auscultation: clear to auscultation bilaterally Cardio Rate: regular rate Rhythm: regular rhythm Heart sounds: no gallops, no murmurs and no rubs Skin General skin exam: other ( warm) Extrem General: No clubbing, No cyanosis and No edema Assessment & Plan Assessment & Plan (1) COPD (chronic obstructive pulmonary disease): Code(s): J44.9 - Chronic obstructive pulmonary disease, unspecified Category: Medical Qualifiers: COPD type: chronic bronchitis Chronic bronchitis type: simple Qualified Code(s): J41.0 - Simple chronic bronchitis Plan: Well controlled on current regimen of Stiolto and albuterol MDI. Continue current regimen. (2) Severe obstructive sleep apnea-hypopnea syndrome: Code(s): G47.33 - Obstructive sleep apnea (adult) (pediatric) Category: Medical Plan: Well controlled on noninvasive ventilation. Continue current therapy. (3) Encounter for preoperative pulmonary examination: Code(s): Z01.811 - Encounter for preprocedural respiratory examination Category: Medical Plan: At this time patient is at low risk for pulmonary perioperative complications for the proposed EGD/colonoscopy under general anesthesia, if performed under monitored anesthesia care, patient may have significant oxygen desaturations secondary to underlying severe obstructive sleep apnea. Coding Level of Care Code Est Pt Level 4 (73025) Complex EM visit Add On G2211 Diagnoses Simple chronic bronchitis J41.0 COPD type: chronic bronchitis Chronic bronchitis type: simple Severe obstructive sleep apnea-hypopnea syndrome G47.33 Encounter for preoperative pulmonary examination Z01.811
== END 2025-07-21 13:33 | disposition home or self-care (01) ==
LOC: HO.HPS 12:36
PROVIDERS: PCP Nurse Practitioner Family; Visit Provider Internal Medicine Pulmonary Disease
DX: J41.0 Simple chronic bronchitis (principal); G47.33 Obstructive sleep apnea (adult) (pediatric); Z01.811 Encounter for preprocedural respiratory examination
CPT/HCPCS: 99214

== ENCOUNTER → 2025-07-21 12:35 | Outpatient (BNVA) | payer OTHER, SELFPAY | PROVIDERS: PCP Nurse Practitioner Family; Visit Provider Internal Medicine Pulmonary Disease | DX: Z01.811 Encounter for preprocedural respiratory examination (principal); J41.0 Simple chronic bronchitis; G47.33 Obstructive sleep apnea (adult) (pediatric) | CPT/HCPCS: 99212 ==

== ENCOUNTER 2025-08-25 12:49 | Outpatient (AMB) | payer OTHER, SELFPAY ==
--- NOTE | 2025-08-25 12:50 | MHC.PC.OV ---
Vital Signs 08/25/25 12:56 Height 5 ft 3 in Weight 274 lb 4 oz BMI 48.6 BP 154/96 H Blood Pressure Location Rt brachial Position Sitting Respiration 16 Pulse 77 Pulse Source Pulse Oximeter Temp 97.9 F Temp Source Oral Pulse Oximetry (%) 96 Oxygen Delivery Method Room Air Intake Visit Reasons: Weight management Intake Note: patient here for follow up for weight management he would like the flu shot but is unable to produce urine today. 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: Yes Bowling Floor Desk Clerk Language: Extension Service Supervisor Name: Abe Vicente Information Interpreted: non-clinical & clinical Allergies lisinopril Adverse Reaction (Intermediate, Verified 08/25/25 12:56) Cough, headache Tobacco use date assessed: 08/25/25 Dental Screening Dental Screen Date: 08/25/25 Did you have a dental visit in the last 12 months?: Yes Did you have a dental problem in the last 6 months where you did not have access to dental care?: No Was dental information given to patient?: Patient has dentist HPI HPI Comments History of Present Illness Details Bowling Floor Desk Clerk [id number] 55-year-old Bulgarian-speaking male hypertension, COPD, GERD, hyperlipidemia, obesity, bilat renal cysts (benign), fatty liver, bilat breast mass, right bicep tendon rupture 06/2024, severe obstructive sleep apnea on CPAP, Hx of syphillis, DM2 s/p open incarcerated umbilical hernia w/mesh 12/2023, s/p Left knee arthroscopic surgery on 05/22/2024, R knee menisal tear repair 06/2025 [facility] [place] History of Present Illness The patient is a 55-year-old male presenting for weight management, influenza vaccination, management of elevated blood pressure, and evaluation of testicular pain. Weight management: - The patient is interested in receiving injections for weight management. Essential Hypertension: - The patient has elevated blood pressure and reports non-adherence to his blood pressure medications becuase he forgets. Testicular pain: - The patient reports intermittent pain in his testicles. - This pain is bilateral and started last night. - He also reports some pain with urination and feels his testicles are swollen. - Hx of syphillis. Denies current STD I have not had sex with anyone - He is also c/o bilat flank pain that started last night DM2: A1c 06/2025. Due for urine microalbumin. Influenza Vaccination: - The patient requested a flu shot during the visit and declined the COVID vaccine. Past Medical History - Chronic syphilis - Diabetes - Hypertension Review of Systems - Genitourinary: Reports intermittent testicular pain, which became bilateral starting last night. - Reports perception of testicular swelling. - Reports dysuria. Physical Exam General: Well developed, well nourished, in no acute distress. Appears stated age. Head: Normocephalic, atraumatic. Eyes: Pupils are equal, round and reactive to light and accommodation. Conjunctivae are clear. Lungs: Dim throughout Heart: Regular rate and rhythm. No murmurs, click, rubs or gallops are noted. Abdomen: Obese; no CVAT bilat : Exam deferred. Psych: Mood and affect appropriate. Results Pending Medical Decision Making The patient is a 55-year-old male who presented with several concerns, including weight management, testicular pain, a request for a flu shot, and elevated blood pressure due to medication non-adherence. Regarding his request for weight loss injections, a referral will be placed to the [facility] [place], as they manage these prescriptions. The patient's new onset of bilateral testicular pain, which started last night, along with reported swelling and dysuria, warrants further investigation. A urine sample will be collected today to screen for infection and to assess kidney function, given his history of diabetes. Additionally, a testicular ultrasound is necessary to rule out structural abnormalities. His blood pressure is elevated because he has not been taking his medication. He was counseled on the importance of medication adherence for cardiovascular health. He will receive his flu shot today as requested. Recent labs from June were reviewed, and no further blood work is due at this time. Plan 1. Weight Management - A referral will be placed to the [facility] [place] for evaluation for weight loss injections. - The clinic will contact the patient to schedule an appointment. 2. Essential Hypertension - The patient was counseled on the importance of taking his blood pressure medication regularly to manage his high blood pressure. 3. Testicular Pain - A urine sample will be collected today to screen for infection and check kidney function. - An ultrasound of the testicles will be ordered to rule out abnormalities. - The patient will be contacted to schedule the ultrasound appointment. - The patient will be called with the results. 4. Influenza Vaccination - The influenza vaccine will be administered during today's visit. 5. DM2 Cont to take medications as directed. Patient Instructions - You will receive your flu shot today in the office. - After your shot, please go to the lab to provide a urine sample. - Remember to take your blood pressure medicine every day. - You will get a phone call from the [facility] to schedule an appointment for the weight loss shots. - You will also get a phone call from the hospital to schedule an ultrasound of your testicles. - I will call you with your test results. Consent Patient was informed and verbally consented to the use of an ambient scribe for clinic note documentation during this visit. Total time spent caring for the patient today was 45 minutes. This includes time spent before the visit reviewing the chart, time spent during the visit, and time spent after the visit on documentation, reviewing laboratory results, diagnostic imaging, medications, performing a medically necessary evaluation, counseling on diagnoses, care coordination, ordering appropriate tests, ordering appropriate medications, review of tests performed by other providers, reporting test results with the patient, communication with other healthcare providers. [facility], [facility] Medical History Umbilical hernia Depression COVID Tachycardia Breast mass, left Bilateral leg cramps Sore throat Breast mass, right Cyst of right breast Impacted cerumen, left ear Low back strain Morbid obesity Rib fractures Pre-op evaluation Elevated blood pressure reading Infected tooth Chronic constipation Normal physical exam Asthma, mild intermittent, poorly controlled Poor historian Asthma attacks lasting more than 24 hours Left upper quadrant abdominal pain Asthma Surgical History History of surgery on lower extremity History of arthroscopic knee surgery Subareolar mass of left breast Umbilical hernia, incarcerated (12/12/23) History of excision of mass (07/31/23) History of surgery on arm Hx of cholecystectomy Family History Other Substance abuse Social History Household Members: Family Housing: House Are you a primary occasional caregiver to a significant other at home: No Do you presently have visiting nurse or other home services: No 75 years or older and lives alone: No Alcohol intake: never Patient Tobacco Use Status: Former Tobacco user Tobacco use type: Cigarette Cigarette Packs Per Day: 4 Cigarettes Per Day: 80.0 Years Smoked: 30 e-Cigarette/Vaping Use: Never Used Second Hand Smoke Exposure: No service: No Current occupational status: employed and unemployed Current occupation: works nights Current occupational exposures/hazards: No Gender identity: Male Cognitive needs: No Hearing needs: Yes Vision needs: Yes Questionnaire Thrive Questionnaire Date Thrive assessed: 02/09/25 I am a: Parent/Caregiver What is your living situation today?: I do not have a steady places to live I am temporarily staying with others Within the past 12 months, did the food you bought not last and you didn't have the money to get more?: I choose not to answer this question Within the past 12 months, did you worry whether your food would run out before you got money to buy more?: I choose not to answer this question Do you have trouble paying for medicines?: No Do you have trouble getting transportation to medical appointments?: Yes Do you have trouble paying your heating and electricity bill?: I choose not to answer this question Do you have trouble taking care of your child, family member or friend?: Yes Do you have trouble with day-to-day activities such as bathing, preparing meals, shopping, managing finances, etc.?: No Are you currently unemployed and looking for a job?: I choose not to answer this question Are you interested in more education?: I choose not to answer this question Please select the resources that you would like help with: Housing/Chcf Currently or been in a relationship where the following occur: I choose not to answer THRIVE Score: 2 DENISHA-7 AMB Questionnaire DENISHA-7 Date DENISHA - 7 assessed: 02/09/25 Source: Developed by Drs. Amauri Pandya, Roselyn Jeong, Nigel Posada and colleagues, with an educational beatrice from [employer]. Physical exam (Primary Care) Vital Signs: Last Vital Signs Temp 97.9 F 08/25/25 12:56 Pulse 77 08/25/25 12:56 Resp 16 08/25/25 12:56 BP 154/96 H 08/25/25 12:56 Pulse Ox 96 08/25/25 12:56 Oxygen Delivery Method Room Air 08/25/25 12:56 BMI result Body Mass Index 48.6 Tobacco/Smoking Status: Tobacco use Status Tobacco use date assessed 08/25/25 08/25/25 13:02 Patient Tobacco Use Status Former Tobacco user 08/25/25 12:51 Tobacco use type Cigarette 08/25/25 12:51 e-Cigarette/Vaping Use Never Used 08/25/25 12:51 Thrive Assessment: Date of Thrive Assessment Date Thrive assessed 02/09/25 08/25/25 12:51 Currently or been in a relationship where the following occur: I choose not to answer Coding Level of Care Code Est Pt Level 5 (39745) Complex EM visit Add On G2211 Diagnoses Obesity, morbid, BMI 40.0-49.9 E66.01 Influenza vaccination administered at current visit Z23 Pain in both testicles N50.811; N50.812 Laterality: bilateral Type 2 diabetes mellitus with other specified complication, without long-term current use of insulin E11.69 Diabetes mellitus intermediate teacher insulin use: without intermediate teacher use Diabetes mellitus complication status: with other specified complication Dysuria R30.0 History of syphilis Z86.19 Primary hypertension I10 Hypertension type: primary hypertension Medically noncompliant Z91.199 Assessment & Plan Assessment & Plan (1) Obesity, morbid, BMI 40.0-49.9: Code(s): E66.01 - Morbid (severe) obesity due to excess calories Category: Medical (2) Influenza vaccination administered at current visit: Onset Date: ~08/25/25 Code(s): Z23 - Encounter for immunization Category: Medical (3) Testicle pain: Code(s): N50.819 - Testicular pain, unspecified Category: Medical Qualifiers: Laterality: bilateral Qualified Code(s): N50.811 - Right testicular pain; N50.812 - Left testicular pain (4) Diabetes type 2: Code(s): E11.9 - Type 2 diabetes mellitus without complications Category: Medical Qualifiers: Diabetes mellitus intermediate teacher insulin use: without intermediate teacher use Diabetes mellitus complication status: with other specified complication Qualified Code(s): E11.69 - Type 2 diabetes mellitus with other specified complication (5) Dysuria: Code(s): R30.0 - Dysuria Category: Medical (6) History of syphilis: Code(s): Z86.19 - Personal history of other infectious and parasitic diseases Category: Medical (7) Hypertension: Comment: goal <130/80 Code(s): I10 - Essential (primary) hypertension Category: Social Hx Qualifiers: Hypertension type: primary hypertension Qualified Code(s): I10 - Essential (primary) hypertension (8) Medically noncompliant: Code(s): Z91.199 - Patient's noncompliance with other medical treatment and regimen due to unspecified reason Category: Medical Plan . Orders: Orders US scrotum Today N50.819 - Testicular pain, unspecified CT NG by PCR Urine Today E11.9 - Type 2 diabetes mellitus without complications, E66.01 - Morbid (severe) obesity due to excess calories, R30.0 - Dysuria UA CC w/rflx Micro + Cult Today E11.9 - Type 2 diabetes mellitus without complications, E66.01 - Morbid (severe) obesity due to excess calories, R30.0 - Dysuria Microalbumin, Random (w Creat) Today E11.9 - Type 2 diabetes mellitus without complications, E66.01 - Morbid (severe) obesity due to excess calories, R30.0 - Dysuria Urine Culture Today E11.9 - Type 2 diabetes mellitus without complications, E66.01 - Morbid (severe) obesity due to excess calories, R30.0 - Dysuria Referrals Medical Weight Management Referral E66.01 - Morbid (severe) obesity due to excess calories
[2025-08-25 12:56] VITALS: BP 154/96; PULSE 77; RESP 16; TEMP 36.6; O2SAT 96; BMI 48.6
== END 2025-08-25 15:32 | disposition home or self-care (01) ==
LOC: HO.HMCFM 12:49
PROVIDERS: PCP Nurse Practitioner Family; Visit Provider Nurse Practitioner Family
DX: E66.01 Morbid (severe) obesity due to excess calories (principal); Z68.42 Body mass index [BMI] 45.0-49.9, adult; E11.69 Type 2 diabetes mellitus with other specified complication; I10 Essential (primary) hypertension; N50.811 Right testicular pain; N50.812 Left testicular pain; R30.0 Dysuria; Z91.199 Patient's noncompliance with other medical treatment and regimen due to unspecified reason; Z23 Encounter for immunization; Z86.19 Personal history of other infectious and parasitic diseases

== ENCOUNTER → 2025-08-25 12:49 | Outpatient (BNVA) | payer OTHER, SELFPAY | PROVIDERS: PCP Nurse Practitioner Family; Visit Provider Nurse Practitioner Family | DX: Z23 Encounter for immunization (principal); E66.01 Morbid (severe) obesity due to excess calories; N50.811 Right testicular pain; N50.812 Left testicular pain; E11.69 Type 2 diabetes mellitus with other specified complication; R30.0 Dysuria; I10 Essential (primary) hypertension; Z86.19 Personal history of other infectious and parasitic diseases; Z91.199 Patient's noncompliance with other medical treatment and regimen due to unspecified reason | CPT/HCPCS: 90471; 90656; 99212 ==

== ENCOUNTER 2025-08-27 14:08 | Outpatient (REF) | payer OTHER, SELFPAY ==
[2025-08-27 14:24] LABS: Appearance Urine Clear; Glucose Urine UA Negative (Negative); PH 5.5 (5.0-9.0); Specific Gravity - Urine 1.015 (1.005-1.025)
[2025-08-27 14:59] LABS: Microalbum/Creatinine Ratio Ur 180.1 ug/mg cr (<30)
[2025-08-27 15:48] LABS: CT PCR Urine NOT DETECTED (Not Detect.); NG PCR Urine NOT DETECTED (Not Detect.)
== END 2025-08-27 14:09 | disposition home or self-care (01) ==
LOC: HO.LNP 14:08
PROVIDERS: Visit Provider Nurse Practitioner Family
DX: Z20.2 Contact with and (suspected) exposure to infections with a predominantly sexual mode of transmission (principal); E11.9 Type 2 diabetes mellitus without complications; E66.01 Morbid (severe) obesity due to excess calories; R30.0 Dysuria
CPT/HCPCS: 81003; 82043; 82570; 87086; 87491; 87591

== ENCOUNTER 2025-09-01 13:03 | Outpatient (AMB) | payer OTHER, SELFPAY ==
--- NOTE | 2025-09-01 13:08 | A.OFFVIS_ITS ---
Vital Signs 09/01/25 13:10 Height 5 ft 3 in Weight 274 lb BMI 48.5 Handedness Right Intake Visit Reasons: PO RT knee 07/02/25 DR Intake Note: Socrates is a 54 year old man who presents today for a post operative visit status post undergoing a right knee arthroscopic surgery on 07/02/25. Patient reports he has been doing better with improvement in his pain. He continues with his home exercise program. He denies any fevers or chills. [employer] Required: Yes [employer] Language: Gamer Services: [employer] Present (iPad) [employer] Name: [id number] Allergies lisinopril Adverse Reaction (Intermediate, Verified 09/01/25 13:11) Cough, headache Medication List - Last Reconciled 09/01/25 by Wil Luevano MD albuterol sulfate 90 mcg/actuation (Ventolin HFA) 2 puffs inhalation QID PRN blood pressure kit-extra large As directed buspirone 10 mg PO BID docusate sodium (Colace) 200 mg (2 x 100 mg) PO BEDTIME fluoxetine 20 mg PO DAILY miscellaneous medical supply air purifier for personal use as directed; pantoprazole 20 mg PO BID tramadol 50 mg PO Q8H PRN valsartan 80 mg PO BID 90 days ziprasidone HCl 20 mg PO BID PFSH Medical History (Updated 08/25/25 @ 13:29 by Sravani Ledesma, [facility]) Umbilical hernia Depression COVID Tachycardia Breast mass, left Bilateral leg cramps Sore throat Breast mass, right Cyst of right breast Impacted cerumen, left ear Low back strain Morbid obesity Rib fractures Pre-op evaluation Elevated blood pressure reading Infected tooth Chronic constipation Normal physical exam Asthma, mild intermittent, poorly controlled Poor historian Asthma attacks lasting more than 24 hours Left upper quadrant abdominal pain Asthma Surgical History (Updated 09/01/25 @ 13:12 by SASHA Brizuela) S/P right knee arthroscopy History of surgery on lower extremity History of arthroscopic knee surgery Subareolar mass of left breast Umbilical hernia, incarcerated (12/12/23) History of excision of mass (07/31/23) History of surgery on arm Hx of cholecystectomy Family History Other Substance abuse Social History Household Members: Family Housing: House Are you a primary care transitions nurse to a significant other at home: No Do you presently have visiting nurse or other home services: No 75 years or older and lives alone: No Alcohol intake: never Patient Tobacco Use Status: Former Tobacco user Tobacco use type: Cigarette Cigarette Packs Per Day: 4 Cigarettes Per Day: 80.0 Years Smoked: 30 e-Cigarette/Vaping Use: Never Used Second Hand Smoke Exposure: No service: No Current occupational status: employed and unemployed Current occupation: works nights Current occupational exposures/hazards: No Gender identity: Male Cognitive needs: No Hearing needs: Yes Vision needs: Yes Physical Exam Vital Signs: BMI result Body Mass Index 48.5 Extrem Other: Right knee examination shows that the surgical incisions are well healed, no erythema, mild discomfort with range of motion, no instability Assessment & Plan Assessment & Plan (1) Right knee pain: Code(s): M25.561 - Pain in right knee Category: Medical Plan Socrates continues to do well after undergoing right knee arthroscopic surgery on 07/02/2025. He will gradually progress to activities as tolerated. He will contact me prior to his follow-up appointment in 3 months should any questions or concerns arise. Feel free to call me at any time should questions regarding his orthopedic management arise. Coding Level of Care Code Global (04172) Diagnoses Right knee pain M25.561
[2025-09-01 13:10] VITALS: BMI 48.5
== END 2025-09-01 13:17 | disposition home or self-care (01) ==
LOC: HO.HOS 13:04
PROVIDERS: PCP Nurse Practitioner Family; Visit Provider Orthopaedic Surgery
DX: M25.561 Pain in right knee (principal)
CPT/HCPCS: 99024

== ENCOUNTER → 2025-09-01 13:03 | Outpatient (BNVA) | payer OTHER, SELFPAY | PROVIDERS: PCP Nurse Practitioner Family; Visit Provider Orthopaedic Surgery | DX: Z47.89 Encounter for other orthopedic aftercare (principal); M25.561 Pain in right knee | CPT/HCPCS: 99212 ==

== ENCOUNTER 2025-09-30 17:15 | Emergency (ER) | payer OTHER, SELFPAY ==
--- NOTE | ~2025-09-30 | XR_ITS ---
CLINICAL HISTORY: sob 2 view chest x-ray. Comparison: CR/SR - XR CHEST 2 VIEWS - 04/21/25 13:01 EDT CR/SR - XR CHEST 2 VIEWS - 02/11/25 12:28 EDT CR - XR CHEST 1V - 01/21/25 20:54 EDT Findings: Normal lung volumes. Lungs are clear. No pneumothorax or pleural effusion. Heart size normal. No passive venous congestion. No midline shift or tracheal deviation. No acute fracture. Impression: 1. No acute cardiopulmonary disease. This document has been electronically signed by: Edgar Riddle MD on 09/30/2025 19:04:26
--- NOTE | 2025-09-30 17:18 | ECG_ITS ---
Test Reason : PALPITATION Blood Pressure : */* mmHG Vent. Rate : 79 BPM Atrial Rate : 79 BPM P-R Int : 196 ms QRS Dur : 68 ms QT Int : 402 ms P-R-T Axes : 28 6 53 degrees QTcB Int : 460 ms Normal sinus rhythm Normal ECG When compared with ECG of 11-Feb-2025 12:49, No significant change was found Referred By: Generic ED Physician Electronically Signed By: PETERSON STEPHENS MD
[2025-09-30 17:46] VITALS: BP 172/104; PULSE 78; RESP 18; TEMP 36.6; O2SAT 93; BMI 48.7
--- NOTE | 2025-09-30 17:47 | ED.GENADULT ---
HPI - General Adult General Chief complaint: General Medical Stated complaint: CP, SOB, twitching eye, throat pain (?stroke) Time Seen by Provider: 09/30/25 20:12 Source: patient Mode of arrival: ambulatory Limitations: language barrier (Service Center Supervisor services utilized.) History of Present Illness ED Provider: Rajinder BRITO HPI narrative: The patient is a 55-year-old male presenting to the ED with several days of generalized malaise. Specific symptoms include generalized malaise, fatigue, occasional fluttering palpitations, sore throat, nonproductive cough, and headache. He denies fever, vomiting, or diarrhea. No recent sick contacts. He denies associated chest pain, pleurisy, hemoptysis, abdominal pain, dysuria, or hematuria. Prior to arrival he took leftover antibiotics prescribed previously for a dental infection, did not taken any of the medications prior to presenting to the ED for evaluation. Related Data Home Medications ?Medication ?Instructions ?Recorded ?Confirmed fluoxetine 20 mg capsule 20 mg PO DAILY 03/05/24 09/01/25 buspirone 10 mg tablet 10 mg PO BID 04/02/24 09/01/25 ziprasidone HCl 20 mg capsule 20 mg PO BID 04/02/24 09/01/25 Previous Rx's ?Medication ?Instructions ?Recorded blood pressure kit-extra large #1 ea 11/20/22 miscellaneous medical supply See Rx Instructions miscellaneous 11/20/22 .COMPLEX #1 ea docusate sodium 100 mg capsule 200 mg (2 x 100 mg) PO BEDTIME 01/30/24 (Colace) #180 caps pantoprazole 20 mg tablet,delayed 20 mg PO BID #60 tabs 12/10/24 release albuterol sulfate 90 mcg/actuation 2 puff inhalation QID PRN 06/10/25 aerosol inhaler (Ventolin HFA) shortness of breath or wheezing #6.7 grams valsartan 80 mg tablet 80 mg PO BID 90 days #180 tabs 06/23/25 tramadol 50 mg tablet 50 mg PO Q8H PRN pain #30 tabs 08/13/25 acetaminophen 500 mg capsule 1,000 mg (2 x 500 mg) PO .q8 PRN 09/30/25 fever or pain #30 caps ibuprofen 600 mg tablet 600 mg PO Q8H PRN fever or pain 09/30/25 #30 tabs Allergies Allergy/AdvReac Type Severity Reaction Status Date / Time lisinopril AdvReac Intermediate Cough, Verified 09/30/25 17:50 headache Review of Systems Review of Systems: Yes all other systems are reviewed and are negative [facility] Past Medical History Medical History (Updated 09/30/25 @ 20:26 by Rajinder Tamez PA-C) Umbilical hernia Depression COVID Tachycardia Breast mass, left Bilateral leg cramps Sore throat Breast mass, right Cyst of right breast Impacted cerumen, left ear Low back strain Morbid obesity Rib fractures Pre-op evaluation Elevated blood pressure reading Infected tooth Chronic constipation Normal physical exam Asthma, mild intermittent, poorly controlled Poor historian Asthma attacks lasting more than 24 hours Left upper quadrant abdominal pain Asthma Surgical History (Updated 09/01/25 @ 13:12 by SASHA Brizuela) S/P right knee arthroscopy History of surgery on lower extremity History of arthroscopic knee surgery Subareolar mass of left breast Umbilical hernia, incarcerated (12/12/23) History of excision of mass (07/31/23) History of surgery on arm Hx of cholecystectomy Family History Family History Other Substance abuse Social History Social History Household Members: Family Housing: House Are you a primary farm or ranch animal caretaker to a significant other at home: No Do you presently have visiting nurse or other home services: No Alcohol intake: never Patient Tobacco Use Status: Former Tobacco user Tobacco use type: Cigarette Cigarette Packs Per Day: 4 Cigarettes Per Day: 80.0 Years Smoked: 30 Smoked in Last 30 Days: No e-Cigarette/Vaping Use: Never Used Second Hand Smoke Exposure: No Advance Directives: No Advance Directives Information Provided: No Do you have a plan to hurt others: No Plan service: No Current occupational status: employed and unemployed Current occupation: works nights Current occupational exposures/hazards: No Gender identity: Male Cognitive needs: No Hearing needs: Yes Vision needs: Yes Physical Exam ED Vital Signs: Vital Signs - 24 hr 09/30/25 17:46 09/30/25 19:29 09/30/25 20:46 Temperature 98 F 97.9 F 97.9 F Pulse Rate 78 74 74 Respiratory Rate 18 18 18 Blood Pressure 172/104 H 137/89 137/89 Pulse Oximetry 93 95 95 Oxygen Delivery Method Room Air Room Air Room Air BMI result Body Mass Index 48.7 CONSTITUTIONAL: The patient appears non-toxic, well nourished and in no acute distress. Vital signs as documented. HEAD: Atraumatic, normocephalic. EYES: EOMs grossly intact, pupils equal, conjunctiva clear, no exudate. ENT: Nares patent, no discharge. Airway patent, no audible stridor, visible mucosa is pink and moist without noted lesions. Posterior pharynx demonstrates midline nonedematous uvula, no tonsillar or peritonsillar swelling, no tonsillar exudate. NECK: Trachea is midline, no obvious masses or gross abnormalities. CHEST: Symmetric movement, normal appearance. LUNGS: LS present and CTAB, no w/r/r. Non-labored work of breathing. CARDIAC: Regular Rhythm, S1/S2 appreciated, no murmurs, rubs or gallops. ABDOMEN: Abdomen soft and non-tender x4 quadrants, no palpable masses or organomegaly. : Deferred. EXTREMITIES: Normal tone, moves all extremities spontaneously without reported pain. No obvious acute injury or deformity noted. NEURO: Alert and oriented x3, CN II-XII appear grossly intact. Cerebellar Functioning grossly intact. No obvious sensory or motor deficits. Speech clear and appropriate. PSYCH: normal affect, appropriate eye contact, fluid speech, with appropriate response to questioning. No reported suicidality or homicidality. SKIN: Warm, dry, color appropriate, normal turgor. No rashes noted. Course Course Course Narrative: This is a Rapid Medical Examination (RME) performed by Doretha Solis PA-C in triage. Full HPI, ROS, assessment and treatment plan per primary provider in the Main ED. Hx: 55 yo M hx asthma here for eval of sore throat, sob, palpitation x a few days. lungs clear. Plan: labs, ekg, cxr, viral/strep swabs Medical Decision Making Medical Decision Making MDM Narrative: 8:23 PM 09/30/2025 (Doretha BRITO): The patient is a 55-year-old male presenting to the ED with several days of generalized malaise. Specific symptoms include generalized malaise, fatigue, occasional fluttering palpitations, sore throat, nonproductive cough, and headache. He denies fever, vomiting, or diarrhea. No recent sick contacts. He denies associated chest pain, pleurisy, hemoptysis, abdominal pain, dysuria, or hematuria. Prior to arrival he took leftover antibiotics prescribed previously for a dental infection, did not taken any of the medications prior to presenting to the ED for evaluation. On exam patient is well-appearing, in no acute distress, lung sounds are clear throughout, posterior pharynx demonstrates no tonsillar exudate, no tonsillar or peritonsillar swelling, uvula is midline and nonedematous. The patient's lung sounds are clear to auscultation throughout, abdomen nontender. Patient's laboratory evaluation shows no leukocytosis, anemia, electrolyte abnormality, GUSTAVO, LFT abnormality. The patient's viral swabs are negative for influenza, COVID, and RSV. The patient's strep swab is negative. The patient's chest x-ray shows no focal consolidation. EKG is nonischemic, troponin is negative. The patient is likely suffering from a viral illness, we will discharge with supportive care and instructions to follow up with the PCP if no improvement. Admission/Observation Consideration of admission/observation: Escalation of care including admission/observation considered Lab Data MDM Lab Attestation statement: I reviewed the patient's lab results. 09/30/25 18:00 09/30/25 18:00 Labs: Lab Results 09/30/25 Range/Units 18:00 WBC 8.6 (4.8-10.8) X10*3/uL RBC 5.73 (4.60-5.80) X10*6/uL Hgb 14.4 (14.0-18.0) g/dl Hct 45.1 (42.0-52.0) % MCV 78.7 L (80.0-98.0) fL MCH 25.1 L (27.0-33.0) pg MCHC 31.9 (31.0-36.0) g/dl RDW 15.7 (11.0-16.0) % Plt Count 295 (160-400) X10*3/uL MPV 9.9 (9.4-12.4) fL Immature Gran % (Auto) 1.3 H (0.0-0.4) % Neut % (Auto) 57.2 (45-73) % Lymph % (Auto) 28.0 (20-40) % [place] % (Auto) 7.9 (2-11) % Eos % (Auto) 4.9 H (0-4) % Baso % (Auto) 0.7 (0-2) % Lymph # (Auto) 2.4 (1.2-4.9) X10*3/uL [place] # (Auto) 0.7 (0.1-1.2) X10*3/uL Eos # (Auto) 0.4 (0.0-0.4) X10*3/uL Baso # (Auto) 0.1 (0.0-0.2) X10*3/uL Abs Immat Gran (auto) 0.11 H (0.00-0.03) X10*3/uL Absolute Neuts (auto) 4.9 (2.0-8.3) x10*3/uL Absolute Nucleated RBC 0.000 (0.0-0.012) X10*3/uL Nucleated RBC % (auto) 0.0 (0.0-0.2) /100WBC Sodium 138 (135-145) mmol/L Potassium 4.1 (3.3-5.1) mmol/L Chloride 105 (96-108) mmol/L Carbon Dioxide 25 (22-29) mmol/L Anion Gap 12 (12-20) BUN 17 H (9-16) mg/dL Creatinine 0.92 (0.5-1.4) mg/dL Estim Creat Clear Calc 109.1 Estimated GFR > 60 Random Glucose 129 H (60-115) mg/dL Calcium 9.1 (8.4-10.2) mg/dL Magnesium 1.7 (1.6-2.6) mg/dL Total Bilirubin 0.2 (0.0-1.0) mg/dL AST 21 (5-37) U/L ALT 22 (0-40) U/L Alkaline Phosphatase 76 (39-117) U/L Troponin I High Sens 3.3 (<3.5-35.0) ng/L Total Protein 7.4 (6.5-8.0) g/dL Albumin 4.5 (3.5-5.0) g/dL Influenza Type A (PCR) NEGATIVE (Negative) Influenza Type B (PCR) NEGATIVE (Negative) RSV RNA Qual (PCR) NEGATIVE (Negative) SARS-CoV-2 RNA (RT-PCR) NEGATIVE (Negative) S. pyogenes GrpA HAN Negative (Negative) Independent Interpretation I performed an independent interpretation of an: EKG (EKG shows sinus rhythm with a rate of 79, no evidence of acute ischemia, no ST elevation, no ectopy. QTC 460. Compared to previous on 02/11/2025 there are no significant morphology changes. ) Radiology Impression Discussion of test interpretation with radiology: I have reviewed the radiologist's reading. Radiologist Impression: 2 view chest x-ray. Comparison: CR/SR - XR CHEST 2 VIEWS - 04/21/25 13:01 EDT CR/SR - XR CHEST 2 VIEWS - 02/11/25 12:28 EDT CR - XR CHEST 1V - 01/21/25 20:54 EDT Findings: Normal lung volumes. Lungs are clear. No pneumothorax or pleural effusion. Heart size normal. No passive venous congestion. No midline shift or tracheal deviation. No acute fracture. Impression: 1. No acute cardiopulmonary disease. This document has been electronically signed by: Edgar Riddle MD on 09/30/2025 19:04:26 External Record Review External record reviewed: Outpatient record and Prior outpatient labs Discharge Plan Discharge Clinical Impression: Acute viral syndrome Patient Disposition: Home, Self-Care Instructions: Viral Syndrome (ED) Additional Instructions: Thank you for choosing [facility]'s Emergency Department for your care today. Thankfully your laboratory evaluation, EKG, chest x-ray, viral swabs, strep swab, exam, and vital signs today are all reassuring. At this time there is no indication for admission to the hospital or continued ED observation, and it is safe to discharge you home. The exact cause of your symptoms is not entirely clear, however at this time there was no evidence of any cardiac, pulmonary, infectious, viral, renal, metabolic, or other dangerous cause for your symptoms. You are most likely suffering from a viral syndrome. You tested negative for influenza, COVID, and RSV, however there are countless other viruses that can cause similar symptoms of a viral illness. Viral illnesses are self-limited and your symptoms should improve in the next 3-5 days. You should take alternating (staggered) doses of ibuprofen 600mg and Tylenol 1000mg every 4 hours as needed for any additional pain. Please stay well hydrated and get plenty of rest. Please follow up with your primary care physician for re-evaluation, additional management of your symptoms, and continued preventative care. If you do not have a primary care physician, please call the [facility] at [phone] to establish a new primary care physician. While waiting to establish your new primary care physician, you can call our Walk[facility]in [facility] at [phone] for non-emergency needs. Please return to the emergency department if you develop a severe or sudden change in your symptoms, a fever over 100.4 that does not improve with Tylenol or Ibuprofen, recurrent vomiting, or any other new or worsening symptoms or concerns. Prescriptions: New ibuprofen 600 mg tablet 600 mg PO Q8H PRN (Reason: fever or pain) Qty: 30 0RF acetaminophen 500 mg capsule 1,000 mg PO .q8 PRN (Reason: fever or pain) Qty: 30 0RF No Action albuterol sulfate [Ventolin HFA] 90 mcg/actuation HFA aerosol inhaler 2 puff inhalation QID PRN (Reason: shortness of breath or wheezing) Qty: 6.7 3RF valsartan 80 mg tablet 80 mg PO BID 90 Days Qty: 180 0RF tramadol 50 mg tablet 50 mg PO Q8H PRN (Reason: pain) Qty: 30 0RF docusate sodium [Colace] 100 mg capsule 200 mg PO BEDTIME Qty: 180 2RF (DME) blood pressure kit-extra large Kit See Rx Instructions .Route Qty: 1 0RF Rx Instructions: As directed miscellaneous medical supply Misc See Rx Instructions miscellaneous .COMPLEX Qty: 1 0RF Rx Instructions: air purifier for personal use as directed; ziprasidone HCl 20 mg capsule 20 mg PO BID buspirone 10 mg tablet 10 mg PO BID pantoprazole 20 mg tablet,delayed release (DR/EC) 20 mg PO BID Qty: 60 2RF fluoxetine 20 mg capsule 20 mg PO DAILY Referrals: Sravani Ledesma FNP-BC [Primary Care Provider, Internal Medicine] Clinical Impression: Acute viral syndrome Interventions: ED Discharge Assessment Last Done: 09/30/25 20:46 Discharge Date/Time: 09/30/25 20:51 Print Language: Divehi
[2025-09-30 18:13] LABS: MANUAL DIFF FLAG NO
[2025-09-30 18:17] LABS: Hematocrit 45.1 % (42.0-52.0); Hemoglobin 14.4 g/dl (14.0-18.0); Imm Gran Abs Auto 0.11 X10*3/uL (0.00-0.03); Imm Gran Pct Auto 1.3 % (0.0-0.4); Lymphocytes Absolute Auto 2.4 X10*3/uL (1.2-4.9); Mean Corpuscular HGB Conc 31.9 g/dl (31.0-36.0); Mean Corpuscular Hemoglobin 25.1 pg (27.0-33.0); Mean Corpuscular Volume 78.7 fL (80.0-98.0); NRBC Abs Auto 0.000 X10*3/uL (0.0-0.012); NRBC Pct Auto 0.0 /100WBC (0.0-0.2); Platelet Count 295 X10*3/uL (160-400); Red Blood Count 5.73 X10*6/uL (4.60-5.80); White Blood Count 8.6 X10*3/uL (4.8-10.8)
[2025-09-30 18:22] LABS: IDNOW Serial# 58CA691E; Strep A Nucleic Acid Negative (Negative)
[2025-09-30 18:34] LABS: Alanine Aminotransferase 22 U/L (0-40); Albumin Level 4.5 g/dL (3.5-5.0); Alkaline Phosphatase 76 U/L (39-117); Anion Gap 12 (12-20); Aspartate Amino Transferase 21 U/L (5-37); Blood Urea Nitrogen 17 mg/dL (9-16); Calcium 9.1 mg/dL (8.4-10.2); Carbon Dioxide 25 mmol/L (22-29); Chloride 105 mmol/L (96-108); Creatinine Clr Calc Pharmacy 109.1; Estimated Glomerular Filt Rate > 60; Magnesium 1.7 mg/dL (1.6-2.6); Potassium 4.1 mmol/L (3.3-5.1); Sodium 138 mmol/L (135-145); Total Protein 7.4 g/dL (6.5-8.0)
[2025-09-30 18:42] LABS: Troponin-I High Sensitivity 3.3 ng/L (<3.5-35.0)
[2025-09-30 18:54] LABS: Resp Syncy Virus RNA Qual PCR NEGATIVE (Negative); SARS COV2 PCR INHOUSE NEGATIVE (Negative)
[2025-09-30 19:29] VITALS: BP 137/89; PULSE 74; RESP 18; TEMP 36.6; O2SAT 95
--- NOTE | 2025-09-30 19:54 | PC.NURSE ---
assued care of pt, pt reports sore throat and cough starting two days ago. Denies anyone sick a home. v/s WNL. Pt denies any pain at this time.
[2025-09-30 20:46] VITALS: BP 137/89; PULSE 74; RESP 18; TEMP 36.6; O2SAT 95
== END 2025-09-30 20:51 | disposition home or self-care (01) ==
PROVIDERS: Physician Assistant Medical; Emergency Provider Emergency Medicine; PCP Nurse Practitioner Family
DX: B34.9 Viral infection, unspecified (principal); R07.89 Other chest pain; R06.02 Shortness of breath; R07.0 Pain in throat; R05.9 Cough, unspecified; R51.9 Headache, unspecified; R00.2 Palpitations; Z79.899 Other long term (current) drug therapy; Z87.891 Personal history of nicotine dependence; Z03.818 Encounter for observation for suspected exposure to other biological agents ruled out
CPT/HCPCS: 71046; 80053; 83735; 84484; 85025; 87637; 87651; 93005; 99284

== ENCOUNTER → 2025-09-30 17:18 | Outpatient (BNV) | payer OTHER, SELFPAY | PROVIDERS: Emergency Provider Emergency Medicine; PCP Nurse Practitioner Family; Visit Provider Internal Medicine Cardiovascular Disease | DX: R00.2 Palpitations (principal) | CPT/HCPCS: 93010 ==

== ENCOUNTER → 2025-09-30 17:48 | Outpatient (BNV) | payer OTHER, SELFPAY | PROVIDERS: PCP Nurse Practitioner Family; Visit Provider Radiology Diagnostic Radiology | DX: R06.02 Shortness of breath (principal) | CPT/HCPCS: 71046 ==